=== PATIENT | female | born 1975 | race Caucasian/White ===

== ENCOUNTER 2023-01-29 21:48 | Outpatient (REF) | payer BC, SELFPAY ==
[2023-02-04 16:12] LABS: Age Gdln ACOG Testing Note (.); HPV Aptima Negative (Negative); IGP, Aptima HPV, rfx 16/18,45 Note (.)
== END 2023-01-29 21:49 | disposition home or self-care (01) ==
LOC: LAB 21:48
PROVIDERS: Visit Provider Obstetrics & Gynecology
DX: Z12.4 Encounter for screening for malignant neoplasm of cervix (principal)
CPT/HCPCS: 87624; G0145

== ENCOUNTER 2023-03-31 09:10 | Outpatient (OUT) | payer BC, SELFPAY ==
--- NOTE | 2023-03-31 09:15 | ECG_ITS ---
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
--- NOTE | 2023-03-31 10:10 | XR_ITS ---
[address] [address] Patient Name: ELIEL ANAYA MRN: [id number] date: 1975 Sex: F Assigned Patient Location: [facility] Current Patient Location: [facility] Accession/Order Number: [id number] Exam Date: 03/31/2023 10:00 Report Date: 03/31/2023 10:36 At the request of: DONALD SANDOVAL Procedure: XR chest 2V EXAM: XR chest 2V HISTORY: Preop exam COMPARISON: None. TECHNIQUE: PA and lateral views of the chest. FINDINGS: The cardiomediastinal silhouette is normal. No focal consolidation is identified. There is no pneumothorax. No pleural effusion is noted. The osseous structures are intact. XR/XR chest 2V IMPRESSION: No acute cardiopulmonary process. Electronically authenticated by: JAGJIT MEDINA Date: 03/31/2023 10:36
[2023-03-31 11:05] LABS: Anion Gap 12.1; BUN Creatinine Ratio 13.5; Calcium 9.4 mg/dL (8.5-10.1); Carbon Dioxide 25.6 mmol/L (21.0-32.0); Chloride 100 mmol/L (98-107); Estimated GFR (African America >60 (>=60); Estimated GFR (Non-African Ame 57 (>=60); Glucose 106 mg/dL (74-106); Potassium 3.7 mmol/L (3.5-5.1); Sodium 134 mmol/L (136-145)
== END 2023-03-31 09:11 | disposition home or self-care (01) ==
LOC: PST 09:12
PROVIDERS: Visit Provider Obstetrics & Gynecology
DX: Z01.810 Encounter for preprocedural cardiovascular examination (principal); Z01.812 Encounter for preprocedural laboratory examination; N92.1 Excessive and frequent menstruation with irregular cycle; R10.2 Pelvic and perineal pain
CPT/HCPCS: 36415; 71046; 80048; 93005

== ENCOUNTER 2023-04-10 07:51 | Day surgery (SDC) | payer BC, SELFPAY ==
[2023-03-31 09:53] VITALS: BP 111/71; PULSE 74; RESP 20; TEMP 36.1; O2SAT 99; BMI 43.2
[2023-04-10] VITALS (10 sets, daily range): BP systolic 100–124; BP diastolic 65–85; PULSE 51–75; RESP 12–20; TEMP 36.1–36.6; O2SAT 93–98
[2023-04-10 08:14] LABS: Glucometer 112 mg/dL (74-106)
[2023-04-10 08:32] LABS: Basophils Percent Auto 0.6 % (0.2-2.0); Eosinophils Absolute Auto 0.1 10^3/uL (0.0-0.7); Hematocrit 39.3 % (36.0-48.0); Hemoglobin 13.2 g/dL (12.0-16.0); Immature Granulocytes Abs Auto 0.04 10^3/uL (0.00-0.03); Immature Granulocytes Pct Auto 0.6 % (0.0-0.5); Lymphocytes Absolute Auto 1.7 10^3/uL (1.2-3.8); Lymphocytes Percent Auto 24.9 % (20.5-60.0); Mean Corpuscular HGB Conc 33.6 g/dL (29.9-35.2); Mean Corpuscular Hemoglobin 31.3 pg (26.7-34.0); Mean Corpuscular Volume 93.1 fL (81.0-99.0); Mean Platelet Volume 11.8 fL (9.5-13.5); Monocytes Absolute Auto 0.4 10^3/uL (0.3-0.8); Monocytes Percent Auto 5.6 % (1.7-12.0); Neutrophils Absolute Auto 4.6 10^3/uL (1.4-6.5); Neutrophils Percent Auto 66.3 % (43.0-75.0); Platelet Count 268 10^3/uL (150-450); Red Blood Count 4.22 10^6/uL (4.20-5.40); Red Cell Distribution Width 12.9 % (11.0-15.0)
[2023-04-10] MEDS: LACTATED RINGER'S SOLUTION 1,000 ML 50 ML IV (08:39)
[2023-04-10 08:44] LABS: HCG Quantitative <1 mIU/mL
--- NOTE | 2023-04-10 10:19 | PM.ONB ---
Brief Operative Note Date of procedure: 04/10/23 Pre-op diagnosis: menorrhagia Post-op diagnosis: same as pre-op Procedure: NAME OF PROCEDURE: [ D&c hysteroscopy with myosure] PROCEDURE: The patient was taken back to the Operating Room where she was prepped and draped in normal sterile fashion after being placed under general anesthesia without difficulty. She was also placed in the dorsal lithotomy position. A weighted speculum was placed in the patient?s vagina. The anterior lip of the cervix was identified and grasped with a single tooth tenaculum. The patient?s uterus was then sounded roughly to [? 8] cm. The patient was then gently dilated using Hegar dilators. The hysteroscope was passed through the patient?s cervix into the uterus. Both ostia were identified. fluffy appearing endometrium. No gross evidence of malignancy, no gross evidence of polyps or fibroids. The MyoSure was then placed through the scope into the uterus, endometrial sampling in all quadrants was then performed. the myosure apparatus was removed along with the hysteroscope from the patient's uterus. At that point, gentle curettage was performed until a gritty texture was noted. The endometrial curettings were sent out to pathology. The single tooth tenaculum was then removed from the patient's anterior lip of the cervix where excellent hemostasis was noted. All instruments were removed from the patient?s vagina. The patient tolerated the procedure well. Sponge, lap and needle counts were correct times two. The patient was taken to the Recovery Room in stable condition.Room in stable condition. Anesthesia: LUIS F Surgeon: Dada Perkins Estimated blood loss (mL): 5 Pathology: other (endometrial currettings) Condition: stable Disposition: PACU
[2023-04-10] MEDS: HYDROMORPHONE HCL 0.5 MG/0.5 ML SYRINGE IV (10:49)
--- NOTE | 2023-04-10 10:53 | PC.NURSE ---
PERIPAD NOTED TO HAVE SCANT AMOUNT PINK DRAINAGE
--- NOTE | 2023-04-10 11:01 | PC.NURSE ---
scant pink drainage noted on peripad
--- NOTE | 2023-04-10 11:46 | PC.NURSE ---
No change in peripad assessment
--- NOTE | 2023-04-10 12:40 | PC.NURSE ---
Voids red tinged urine without difficulty
== END 2023-04-10 12:10 | disposition home or self-care (01) ==
PROVIDERS: Visit Provider Obstetrics & Gynecology
PROC: (CPT 58558; principal; 2023-04-10 09:15)
DX: N92.1 Excessive and frequent menstruation with irregular cycle (principal); R10.2 Pelvic and perineal pain; I10 Essential (primary) hypertension; Z79.84 Long term (current) use of oral hypoglycemic drugs; J30.1 Allergic rhinitis due to pollen; Z87.891 Personal history of nicotine dependence; Z86.010 Personal history of colon polyps; J43.9 Emphysema, unspecified; M79.7 Fibromyalgia; K21.9 Gastro-esophageal reflux disease without esophagitis; F41.1 Generalized anxiety disorder; E78.5 Hyperlipidemia, unspecified; M54.16 Radiculopathy, lumbar region; E66.01 Morbid (severe) obesity due to excess calories; E28.2 Polycystic ovarian syndrome; F32.A Depression, unspecified; E61.1 Iron deficiency; G47.33 Obstructive sleep apnea (adult) (pediatric); E53.8 Deficiency of other specified B group vitamins; Z68.41 Body mass index [BMI] 40.0-44.9, adult; Z86.16 Personal history of COVID-19
CPT/HCPCS: 58558; 36415; 82948; 84702; 85025; 88305; J1170; J2704

== ENCOUNTER 2024-09-26 09:58 | Outpatient (REF) | payer OTHER, SELFPAY | END 2024-09-26 09:59 | disposition home or self-care (01) | LOC: LAB 09:58 | PROVIDERS: PCP Family Medicine Adult Medicine; Visit Provider Obstetrics & Gynecology | DX: R10.2 Pelvic and perineal pain (principal); N94.6 Dysmenorrhea, unspecified ==

== ENCOUNTER 2024-10-10 09:14 | Outpatient (OUT) | payer OTHER, SELFPAY ==
--- NOTE | 2024-10-10 09:19 | ECG_ITS ---
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 Measurements Intervals [place] Rate: 65 P: -9 OR: 181 QRS: 10 QRSD: 94 T: 54 QT: 398 QTc: 416 Interpretive Statements SINUS RHYTHM INCOMPLETE RIGHT BUNDLE BRANCH BLOCK [90+ ms QRS DURATION, TERMINAL R IN V1/V2, 40+ ms S IN I/aVL/V4/V5/V6] Compared to ECG 03/31/2023 09:54:31 No significant changes Electronically Signed On 10-10-2024 17:52:14 EDT by MARIELENA RASMUSSEN M.D.
--- OUTSIDE RECORDS SUMMARY | 2024-10-10 09:36 | XMS_ITS | CCD ---
Author Organization [facility] Care Team Providers Care Correspondence Review Clerk Name Role Phone DAVID, KOSTA A Unavailable Unavailable DAVID, KOSTA A Unavailable Unavailable DAVID, KOSTA A Unavailable Unavailable DAVID, KOSTA A Unavailable Unavailable DAVID, KOSTA A Unavailable Unavailable Andreas ECKERT Primary Care Physician [phone] Serafin Roberson Primary Care Physician Unavail able TAO Edwards Attending Luisa vailable Demboske, Daja Harman Attending Unavailable Demboske, Daja Harman Attending Unavailable Demboske, Daja Harman Attending Unavailable Demboske, Daja Harman Admitting Unavailable ClingmanMaximilian Admitting Unavailable Clingman, Maximilian Carbajal Attending Unavailable Rupesh Gandara Admitting Unavailable Rupesh Gandara Attending Unavailable Andreas ECKERT Referring Unavailable ClinMaximilian zavala Attending Unavailable DO Serafin Roberson Attending Unavailable DO Serafin Roberson Attending Unavailable Hussain Varner Admitting Unavailable Hussain Varner Attending Unavailable Sanam, Daja Harman Admitting Unavailable Sanam, Daja Harman Attending Unavailable Hector Alyssa Admitting Unavailable Alyssa Young Attending Unavailable Andreas ECKERT Referring Unavailable Hector Alyssa Admitting Unavailable Alyssa Young Attending Unavailable Serafin Roberson Referring Unavailable Juanita Oneill Attending Unavailable Serafin Roberson Attending Unavailable Serafin Roberson Attending Unavailable Serafin Roberson Attending Unavailable Serafin Roberson Attending Unavailable Serafin Roberson Admitting Unavailable Serafin Roberson Attending Unavailable Hussain Varner Attending Unavailable Hussain Varner Admitting Unavailable Andreas Eckert MD Primary Care Provider Dada Perkins DO Attending Provider DADA PERKINS Attending Unavailable DADA PERKINS Attending Unavailable Dada Perkins Attending Unavailable Dada Perkins Admitting Unavailable Jeffy Coffman Attending UnavailSerafin Guan Attending Unavailable Serafin Roberson Admitting Unavailable Serafin Roberson Attending Unavailable Allergies Allergy Classification Reported Allergen(s) Allergy Type Date of Onset Reaction(s) Facility (20 sources) Sulfonamides (Antibiotic); Translations: [sulfa drugs] Propensity to adverse reactions to drug (disorder) TONGUE SWELLS, angioedema [facility] (20 sources) pregabalin; Translations: [pregabalin] Drug Allergy unknown [facility] (4 sources) Pregabalin Allergy to substance 3 Unknown [facility] (4 sources) Sulfonamides (Antibiotic) Drug Allergy 3 Angioedema, Unknown [facility] Medications Current Medications Medication Drug Class(es) Dates Sig (Normalized) Sig (Original) acetaminophen 325 mg / HYDROcodone bitartrate 5 mg oral tablet (3 sources) Opioid Agonist Start: 08-29-2021 [place] 325 mg-5 mg oral tablet 1 tab(s), Oral, q6hr as needed for pain, 7 tab(s), Refill(s) 0, [id number], 165, cm, 08/29/21 19:07:00 EDT, Height/Length Dosing, 128, kg, 08/29/21 19:07:00 EDT, Weight Dosing Start Date: 08/29/21 Status: Ordered [id number] 200 actuat albuterol 0.09 mg/actuat metered dose inhaler (2 sources) beta2-Adrenergic Agonist Start: 06-03-2021 take 2 puff(s) by inhalation every four hours for wheezing ProAir HFA 90 mcg/inh inhalation aerosol 2 puff(s), Inhalation, q4hr for wheezing, 8.5 gram, Refill(s) 6, [id number], 165, cm, 04/29/21 10:14:00 EST, Height/Length Dosing, 136.3, kg, 04/30/21 9:22:00 EST, Weight Dosing Start Date: 06/03/21 Status: Ordered Albuterol (Eqv-ProAir HFA) 90 mcg/inh inhalation aerosol (10 sources) Start: 11-09-2023 take 2 puff(s) by inhalation every six hours Albuterol (Eqv-ProAir HFA) 90 mcg/inh inhalation aerosol 2 puff(s), Inhalation, q6hr, 18 gm, Refill(s) 0, [id number], 165, cm, 11/09/23 16:50:00 EDT, Height/Length Dosing, 116.7, kg, 11/09/23 16:50:00 EDT, Weight Dosing Start Date: 11/09/23 Status: Ordered Start: 05-20-2022 End: 05-27-2022 take 2 puff(s) by inhalation every six hours Albuterol (Eqv-ProAir HFA) 90 mcg/inh inhalation aerosol 2 puff(s), Inhalation, q6hr for 7 day(s), 6.7 gm, Refill(s) 0, [id number], 165, cm, 05/20/22 18:06:00 EST, Height/Length Dosing, 124, kg, 05/20/22 18:06:00 EST, Weight Dosing Start Date: 05/20/22 Stop Date: 05/27/22 Status: Ordered Albuterol (Eqv-Proventil HFA) 90 mcg/inh inhalation aerosol (20 sources) Start: 08-04-2022 take 2 puff(s) by inhalation every four hours Albuterol (Eqv-Proventil HFA) 90 mcg/inh inhalation aerosol = 2 puff(s), Inhalation, q4hr, Refills(s) 0 Start Date: 08/04/22 Status: Ordered amoxicillin 875 mg / clavulanate 125 mg oral tablet (2 sources) Penicillin-class Antibacterial Start: 11-09-2023 End: 11-19-2023 take 1 tablet by mouth every twelve hours Augmentin 875 mg oral tablet = 1 tab(s), Oral, q12hr, X 10 day(s), # 20 tab(s), Refills(s) 0, Pharmacy: [id number], 165, cm, 11/09/23 16:50:00 EDT, Height/Length Dosing, 116.7, kg, 11/09/23 16:50:00 EDT, Weight Dosing Start Date: 11/09/23 Stop Date: 11/19/23 Status: Ordered Start: 06-17-2022 End: 06-22-2022 take 1 tablet by mouth every twelve hours Augmentin 875 mg oral tablet = 1 tab(s), Oral, q12hr, X 5 day(s), # 10 tab(s), Refills(s) 0, [id number], cm, 06/17/22 19:01:00 EST, Height/Length Dosing, 125, kg, 06/17/22 19:01:00 EST, Weight Dosing Start Date: 06/17/22 Stop Date: 06/22/22 Status: Ordered azithromycin 250 mg oral tablet (2 sources) Macrolide Antimicrobial Start: 06-30-2022 Zithromax 250 mg Tab = 1 packet(s), Oral, As Directed, as directed on package labeling, # 6 tab(s), Refills(s) 1, [id number] 162, cm, 06/30/22 11:40:00 EST, Height/Length Dosing, 126, kg, 06/30/22 11:39:00 EST, Weight Dosing Start Date: 06/30/22 Status: Ordered benzonatate 100 mg oral capsule (1 source) Non-narcotic Antitussive Start: 11-09-2023 End: 11-16-2023 take 1 capsule by mouth three times daily Tessalon 100 mg Cap 100 mg = 1 cap(s), Oral, TID, X 7 day(s), # 21 cap(s), Refills(s) 0, [id number] 165, cm, 11/09/23 16:50:00 EDT, Height/Length Dosing, 116.7, kg, 11/09/23 16:50:00 EDT, Weight Dosing Start Date: 11/09/23 Stop Date: 11/16/23 Status: Ordered brompheniramine maleate 0.4 mg/ml / dextromethorphan hydrobromide 2 mg/ml / pseudoephedrine hydrochloride 6 mg/ml oral solution (4 sources) alpha-Adrenergic Agonist, Uncompetitive A-bjimdu-Q-asparta te Receptor Antagonist, Sigma-1 Agonist Start: 05-30-2022 take 10 mL by mouth four times daily Bromfed DM oral syrup 10 mL, Oral, QID for cold symptoms, 200 mL, Refill(s) 0, [id number], 165, cm, 05/30/22 9:05:00 EST, Height/Length Dosing, 125, kg, 05/30/22 9:05:00 EST, Weight Dosing Start Date: 05/30/22 Status: Ordered Start: 05-20-2022 take 5 mL by mouth f our times daily Bromfed DM oral syrup 5 mL, Oral, QID for cold symptoms, 200 mL, Refill(s) 0, [id number], 165, cm, 05/20/22 18:06:00 EST, Height/Length Dosing, 124, kg, 05/20/22 18:06:00 EST, Weight Dosing Start Date: 05/20/22 Status: Ordered 24 hr buPROPion hydrochloride 300 mg extended release oral tablet (8 sources) Aminoketone Start: 07-08-2024 take 1 tablet by mouth once daily buPROPion 300 mg/24 hours ER Tab 300 mg = 1 tab(s), Oral, Daily, # 30 tab(s), Refills(s) 11, Pharmacy: [facility], 165, cm, 07/05/24 8:55:00 EST, Height/Length Dosing, 115.7, kg, 07/05/24 8:55:00 EST, Weight Dosing Start Date: 07/08/24 Status: Ordered Start: 05-27-2024 take 1 tablet by chin th every twenty-four hours buPROPion 150 mg/24 hours XL Tab 150 mg = 1 tab(s), Oral, q24hr, # 30 tab(s), Refills(s) 5, Pharmacy: [facility], 165, cm, 05/27/24 8:56:00 EST, Height/Length Dosing, 119.7, kg, 05/27/24 8:56:00 EST, Weight Dosing Start Date: 05/27/24 Status: Ordered cetirizine hydrochloride 10 mg chewable tablet (20 sources) Histamine-1 Receptor Antagonist Start: 06-20-2022 take 1 tablet by mouth once daily as needed cetirizine 10 mg oral tablet, chewable 10 mg = 1 tab(s), Oral, Daily, PRN for allergy symptoms, # 90 tab(s), Refills(s) 0, Pharmacy: [id number], 165, cm, 06/17/22 19:01:00 EST, Height/Length Dosing, 125, kg, 06/17/22 19:01:00 EST, Weight Dosing Start Date: 06/20/22 Status: Ordered Start: 12-10-2020 take 1 tablet by chin th once daily as needed cetirizine 10 mg oral tablet, chewable 10 mg = 1 tab(s), Oral, Daily, PRN for allergy symptoms, # 90 tab(s), Refills(s) 0, Pharmacy: [id number], 132.7, cm, 11/22/20 15:27:00 EDT, Height/Length Dosing, 165, kg, 11/22/20 15:27:00 EDT, Weight Dosing Start Date: 12/10/20 Status: Ordered ciprofloxacin 500 mg oral tablet (1 source) Quinolone Antimicrobial Start: 06-04-2022 take 1 tablet by mouth twice daily Cipro 500 mg Tab 500 mg = 1 tab(s), Oral, BID, # 14 tab(s), Refills(s) 0, Pharmacy: [id number], 165, cm, 05/30/22 9:05:00 EST, Height/Length Dosing, 125, kg, 05/30/22 9:05:00 EST, Weight Dosing Start Date: 06/04/22 Status: Ordered ciprofloxacin 3 mg/ml / dexamethasone 1 mg/ml otic suspension (2 sources) Corticosteroid, Quinolone Antimicrobial Start: 06-03-2024 End: 06-17-2024 Ciprodex 0.3%-0.1% Susp-Otic 4 drop(s), Otic, BID for 7 day(s), 7.5 mL, Refill(s) 1, [facility], 165, cm, 06/03/24 13:33:00 EST, Height/Length Dosing, 118.7, kg, 06/03/24 13:33:00 EST, Weight Dosing Start Date: 06/03/24 Stop Date: 06/17/24 Status: Ordered cyclobenzaprine hydrochloride 10 mg oral tablet (20 sources) Muscle Relaxant Start: 06-03-2024 take 1 tablet by mouth three times daily as needed for muscle spasms cyclobenzaprine 10 mg Tab 10 mg = 1 tab(s), Oral, TID, PRN for spasm, # 90 tab(s), Refills(s) 2, Pharmacy: [facility], 165, cm, 06/03/24 13:33:00 EST, Height/Length Dosing, 118.7, kg, 06/03/24 13:33:00 EST, Weight Dosing Start Date: 06/03/24 Status: Ordered Start: 09-02-2023 take 1 tablet by chin three times daily as needed for muscle spasms cyclobenzaprine 10 mg Tab 10 mg = 1 tab(s), Oral, TID, PRN for spasm, # 90 tab(s), Refills(s) 2, Pharmacy: [id number], 165, cm, 09/01/23 15:20:00 EDT, Height/Length Dosing, 118, kg, 09/01/23 15:20:00 EDT, Weight Dosing Start Date: 09/02/23 Status: Ordered Start: 08-21-2021 End: 05-03-2023 take 1 tablet by mouth three times daily as needed for muscle spasms cyclobenzaprine 10 mg Tab 10 mg = 1 tab(s), Oral, TID, PRN for spasm, # 90 tab(s), Refills(s) 2, Pharmacy: [id number], 165, cm, 11/21/21 8:25:00 EDT, Height/Length Dosing, 122.5, kg, 11/21/21 8:25:00 EDT, Weight Dosing Start Date: 11/21/21 Status: Ordered Cymbalta 30 mg Cap-EC (10 sources) Start: 06-19-2020 take 3 capsules by mouth once daily Cymbalta 30 mg Cap-EC 90 mg = 3 cap(s), Oral, Daily, # 270 cap(s), Refills(s) 3, Pharmacy: [id number], 165, cm, 06/14/20 15:31:00 EST, Height/Length Dosing, 122.5, kg, 06/14/20 15:31:00 EST, Weight Dosing Start Date: 06/19/20 Status: Ordered diclofenac sodium 0.01 mg/mg topical gel (6 sources) Nonsteroidal Anti-inflammatory Drug Start: 07-05-2020 diclofenac Top 1% gel 1 justine, Topical, QID for pain, 100 gram, Refill(s) 11, [id number], 165, cm, 06/25/20 7:15:00 EST, Height/Length Dosing, 126.5, kg, 06/25/20 7:15:00 EST, Weight Dosing Start Date: 07/05/20 Status: Ordered Start: 07-05-2020 diclofenac Top 1% gel 1 justine, Topical, QID for pain, 100 gram, Refill(s) 11, [id number], 165, cm, 06/25/20 7:15:00 EST, Height/Length Dosing, 126.5, kg, 06/25/20 7:15:00 EST, Weight Dosing Start Date: 07/05/20 Status: Ordered doxycycline monohydrate 100 mg oral tablet (4 sources) Tetracycline-class Drug Start: 05-20-2022 End: 05-27-2022 take 1 tablet by mouth twice daily doxycycline monohydrate 100 mg oral tablet 100 mg = 1 tab(s), Oral, BID, X 7 day(s), # 14 tab(s), Refills(s) 0, Pharmacy: [facility] #[id number], 165, cm, 05/20/22 18:06:00 EST, Height/Length Dosing, 124, kg, 05/20/22 18:06:00 EST, Weight Dosing Start Date: 05/20/22 Stop Date: 05/27/22 Status: Ordered Start: 11-28-2021 End: 12-08-2021 take 1 tablet by mouth every twelve hours doxycycline hyclate 100 mg Tab 100 mg = 1 tab(s), Oral, q12hr, X 10 day(s), # 20 tab(s), Refills(s) 0, Pharmacy: [id number], 165, cm, 11/28/21 18:28:00 EDT, Height/Length Dosing, 122, kg, 11/28/21 18:28:00 EDT, Weight Dosing Start Date: 11/28/21 Stop Date: 12/08/21 Status: Ordered DULoxetine 30 mg delayed release oral capsule (9 sources) Serotonin and Norepinephrine Reuptake Inhibitor Start: 06-19-2020 take 3 capsules by mouth once daily Cymbalta 30 mg Cap-EC 90 mg = 3 cap(s), Oral, Daily, # 270 cap(s), Refills(s) 3, Pharmacy: [id number], 165, cm, 06/14/20 15:31:00 EST, Height/Length Dosing, 122.5, kg, 06/14/20 15:31:00 EST, Weight Dosing Start Date: 06/19/20 Status: Ordered DULoxetine (Cymb afia) [address] capsule 1 (one) time each day at the same time. Active duloxetine 30 mg Cap-DR (20 sources) Start: 08-04-2022 take 1 capsule by mouth twice daily duloxetine 30 mg Cap-DR = 1 cap(s), Oral, BID, (do not crush or chew), # 180 cap(s), Refills(s) 0 Start Date: 08/04/22 Status: Ordered Elderberry preparation (10 sources) Start: 10-14-2023 elderberry Refill(s) 0 Start Date: 10/14/23 Status: Ordered Flonase 0.05 mg/inh nasal spray (6 sources) Start: 10-30-2018 take 1 spray(s) nasal route twice daily Flonase 0.05 mg/inh nasal spray 1 spray(s), Nasal, BID, 16 gram, Refill(s) 0, each nostril, Allergy symptoms Start Date: 10/30/18 Status: Ordered FLUoxetine 20 mg oral capsule (20 sources) Serotonin Reuptake Inhibitor Start: 05-27-2024 take 1 capsule by mouth once daily FLUoxetine 20 mg Cap 20 mg = 1 cap(s), Oral, Daily, # 30 cap(s), Refills(s) 0, other reason (Rx) Start Date: 05/27/24 Status: Ordered Start: 12-02-2021 take 1 capsule by mo [facility] once daily FLUoxetine 40 mg Cap 40 mg = 1 cap(s), Oral, Daily, Refills(s) 0 Start Date: 12/02/21 Status: Ordered Start: 01-17-2021 take 30 mg by mouth once daily Prozac 30 mg, Oral, Daily, Refills(s) 0 Start Date: 01/17/21 Status: Ordered take 3 capsules by m outh in the morning FLUoxetine (PROzac) 10 MG capsule Take 30 mg by mouth in the morning. Active fluticasone propionate 0.05 mg/actuat metered dose nasal spray (20 sources) Corticosteroid Start: 05-30-2022 fluticasone (F lonase) 50 MCG/ACT nasal spray 1 (one) time each day at the same time. 05/30/2022 Active Start: 05-30-2022 Flonase 0.05 m g/inh [place] 2 spray(s), Nasal, Daily, 16 gram, Refill(s) 5, each nostril, [id number], 165, cm, 05/30/22 9:05:00 EST, Height/Length Dosing, 125, kg, 05/30/22 9:05:00 EST, Weight Dosing Start Date: 05/30/22 Status: Ordered Start: 10-30-2018 take 1 spray(s) nasa l route twice daily Flonase 0.05 mg/inh nasal spray 1 spray(s), Nasal, BID, 16 gram, Refill(s) 0, each nostril, Allergy symptoms Start Date: 10/30/18 Status: Ordered folic acid 1 mg oral tablet (19 sources) Start: 02-26-2023 take 1 tablet by mouth once daily folic acid 1 mg Tab 1 mg = 1 tab(s), Oral, Daily, # 90 tab(s), Refills(s) 3, Pharmacy: [facility], 165, cm, 04/04/24 10:00:00 EST, Height/Length Dosing, 116.6, kg, 04/04/24 10:00:00 EST, Weight Dosing Start Date: 04/04/24 Status: Ordered gabapentin 600 mg oral tablet (20 sources) Anti-epilepti c Agent Start: 07-05-2024 gabapentin 600 mg Ta b See Instructions, 0.5 tabs QAM and 2 tabs QHS, # 75 tab(s), Refills(s) 2, Pharmacy: [facility], 165, cm, 07/05/24 8:55:00 EST, Height/Length Dosing, 115.7, kg, 07/05/24 8:55:00 EST, Weight Dosing Start Date: 07/05/24 Status: Ordered Start: 11-17-2023 End: 08-11-2024 take 1 tablet by mouth twice daily gabapentin 600 mg Tab 600 mg = 1 tab(s), Oral, BID, X 30 day(s), # 60 tab(s), Refills(s) 2, Pharmacy: [facility] #[facility], 165, cm, 04/04/24 10:00:00 EST, Height/Length Dosing, 116.6, kg, 04/04/24 10:00:00 EST, Weight Dosing Start Date: 05/13/24 Stop Date: 08/11/24 Status: Ordered Start: 09-02-2023 End: 11-01-2023 take 1 tablet by mouth twice daily gabapentin 600 mg Tab 600 mg = 1 tab(s), Oral, BID, X 30 day(s), # 60 tab(s), Refills(s) 1, [id number] 165, cm, 09/01/23 15:20:00 EDT, Height/Length Dosing, 118, kg, 09/01/23 15:20:00 EDT, Weight Dosing Start Date: 09/02/23 Stop Date: 11/01/23 Status: Ordered Start: 04-03-2023 End: 07-02-2023 take 11-17 tablets by mouth twice daily gabapentin 600 mg Tab 600 mg = 1 tab(s), Oral, BID, DNF 04-10-23, X 30 day(s), # 60 tab(s), Refills(s) 2, Pharmacy: [id number], 165, cm, 01/16/23 10:39:00 EDT, Height/Length Dosing, 118, kg, 01/16/23 10:39:00 EDT, Weight Dosing Start Date: 04/03/23 Stop Date: 07/02/23 Status: Ordered Start: 12-01-2022 take 1 tablet by chin th twice daily gabapentin 600 mg Tab 600 mg = 1 tab(s), Oral, BID, # 60 tab(s), Refills(s) 1, Pharmacy: [id number], 165, cm, 11/26/22 15:24:00 EDT, Height/Length Dosing, 121.5, kg, 11/26/22 15:24:00 EDT, Weight Dosing Start Date: 12/01/22 Status: Ordered Start: 08-20-2021 take 1 tablet by chin th twice daily gabapentin 600 mg Tab 600 mg = 1 tab(s), Oral, BID, # 60 tab(s), Refills(s) 1, Pharmacy: [id number], 165, cm, 09/04/22 8:33:00 EDT, Height/Length Dosing, 120.3, kg, 09/04/22 8:33:00 EDT, Weight Dosing Start Date: 09/05/22 Status: Ordered hydroCHLOROthiazide 25 mg oral tablet (20 sources) Thiazide Diuretic Start: 05-10-2021 take 1 tablet by mouth in the morning hydroCHLOROthiazide (HYDRODiuril) 25 MG tablet Take 25 mg by mouth in the morning. 05/07/2022 Active hydrOXYzine hydrochloride 50 mg oral tablet (4 sources) Antihistamine Start: 09-12-2022 take 1 tablet by mouth once daily as needed hydrOXYzine HCl (Atarax) 50 MG tablet TAKE 1 TABLET BY MOUTH EVERY DAY AT NOON NEEDED 09/12/2022 Active ibuprofen 800 mg oral tablet (20 sources) Nonsteroidal Anti-inflammatory Drug Start: 08-21-2021 take 1 tablet by mouth twice daily as needed for pain ibuprofen 800 mg Tab 800 mg = 1 tab(s), Oral, BID, PRN as needed for pain, # 60 tab(s), Refills(s) 0, Pharmacy: [id number], 165, cm, 11/21/21 8:25:00 EDT, Height/Length Dosing, 122.5, kg, 11/21/21 8:25:00 EDT, Weight Dosing Start Date: 11/21/21 Status: Ordered ketotifen 0.25 mg/ml ophthalmic solution (20 sources) Histamine-1 Receptor Inhibitor Start: 05-20-2022 Zaditor 0.025% ophthalmic solution 1 drop(s), Eye-Both, q8hr, 7.5 mL, Refill(s) 0, [id number], 165, cm, 05/20/22 18:06:00 EST, Height/Length Dosing, 124, kg, 05/20/22 18:06:00 EST, Weight Dosing Start Date: 05/20/22 Status: Ordered light duty (20 sources) Start: 11-03-2019 light duty light duty, Print Requisition, Supply Start Date: 11/03/19 Status: Ordered lisinopril 10 mg oral tablet (20 sources) Angiotensin Converting Enzyme Inhibitor Start: 12-21-2020 End: 09-12-2024 take 1 tablet by mouth once daily lisinopril 10 mg Tab 10 mg, Oral, Daily, # 90 tab(s), Refills(s) 4, [id number] 165, cm, 11/26/22 15:24:00 EDT, Height/Length Dosing, 121.5, kg, 11/26/22 15:24:00 EDT, Weight Dosing Start Date: 11/26/22 Status: Ordered meclizine hydrochloride 12.5 mg oral tablet (20 sources) Antiemetic Start: 05-30-2022 meclizine (Antivert) 12.5 MG tablet 1/2-1 tablets Orally tid-qid prn dizziness for 30 day(s) 05/30/2022 Active Start: 01-15-2020 take 1 tablet by chin th three times daily as needed for dizziness meclizine 25 mg Tab 25 mg = 1 tab(s), Oral, TID, PRN for dizziness, # 60 tab(s), Refills(s) 0, [id number], 165, cm, 01/04/20 7:16:00 EDT, Height/Length Dosing, 123.4, kg, 01/04/20 7:16:00 EDT, Weight Dosing Start Date: 01/15/20 Status: Ordered metFORMIN hydrochloride 500 mg oral tablet (20 sources) Biguanide Start: 08-04-2022 metFORMIN (Glu cophage) 500 MG tablet Take 500 mg by mouth. 08/04/2022 Active Start: 04-02-2020 take 1 tablet by chin th twice daily metformin 500 mg oral tablet 500 mg = 1 tab(s), Oral, BID, # 60 tab(s), Refills(s) 11, Pharmacy: [id number], 165, cm, 03/29/20 9:07:00 EST, Height/Length Dosing, 120, kg, 03/29/20 9:07:00 EST, Weight Dosing Start Date: 04/02/20 Status: Ordered methylPREDNISolone 4 mg oral tablet (2 sources) Corticosteroid Start: 06-30-2022 Medrol Dosepack 4 mg Tab = 1 packet(s), Oral, As Directed, as directed on package labeling, # 21 tab(s), Refills(s) 1, [id number] 162, cm, 06/30/22 11:40:00 EST, Height/Length Dosing, 126, kg, 06/30/22 11:39:00 EST, Weight Dosing Start Date: 06/30/22 Status: Ordered 24 hr metoprolol succinate 25 mg extended release oral tablet (12 sources) beta-Adrenergic Kaveh Start: 03-20-2022 take 1 tablet by mouth once daily metoprolol 25 mg ER Tab 25 mg = 1 tab(s), Oral, Daily, # 90 tab(s), Refills(s) 1, [id number], 165, cm, 01/29/22 10:54:00 EDT, Height/Length Dosing, 123, kg, 12/23/21 9:43:00 EDT, Weight Dosing Start Date: 03/20/22 Status: Ordered Start: 12-24-2020 End: 12-19-2021 take 1 tablet by mouth once daily metoprolol 25 mg ER Tab 25 mg = 1 tab(s), Oral, Daily, X 90 day(s), # 90 tab(s), Refills(s) 3, [id number], 132.7, cm, 11/22/20 15:27:00 EDT, Height/Length Dosing, 165, kg, 11/22/20 15:27:00 EDT, Weight Dosing Start Date: 12/24/20 Stop Date: 12/19/21 Status: Ordered montelukast 10 mg oral tablet (20 sources) Leukotriene Receptor Antagonist Start: 07-22-2022 take 1 tablet by mouth once daily in the evening Singulair 10 mg Tab 10 mg = 1 tab(s), Oral, qPM, # 90 tab(s), Refills(s) 4, Pharmacy: [facility], 165, cm, 06/03/24 13:33:00 EST, Height/Length Dosing, 118.7, kg, 06/03/24 13:33:00 EST, Weight Dosing Start Date: 06/03/24 Status: Ordered Mucinex D Max Strength oral tablet, extended release (1 source) Start: 11-09-2023 End: 11-19-2023 Mucinex D Max Strength oral tablet, extended release 1 tab(s), Oral, q12hr for 10 day(s), 20 tab(s), Refill(s) 0, [id number], 165, cm, 11/09/23 16:50:00 EDT, Height/Length Dosing, 116.7, kg, 11/09/23 16:50:00 EDT, Weight Dosing Start Date: 11/09/23 Stop Date: 11/19/23 Status: Ordered mupirocin 0.02 mg/mg topical ointment (20 sources) RNA Synthetase Inhibitor Antibacterial Start: 05-20-2022 End: 05-27-2022 mupirocin Top 2% Oint 1 justine, Topical, TID for 7 day(s), 30 gram, Refill(s) 0, [id number], 165, cm, 05/20/22 18:06:00 EST, Height/Length Dosing, 124, kg, 05/20/22 18:06:00 EST, Weight Dosing Start Date: 05/20/22 Stop Date: 05/27/22 Status: Ordered Start: 11-11-2021 Bactroban 2% C ream 1 justine, Topical, TID, 15 gm, Refill(s) 0, [id number], 165, cm, 08/29/21 19:07:00 EDT, Height/Length Dosing, 128, kg, 08/29/21 19:07:00 EDT, Weight Dosing Start Date: 11/11/21 Status: Ordered nitrofurantoin, macrocrystals 100 mg oral capsule (2 sources) Nitrofuran Antibacterial Start: 09-01-2023 End: 09-06-2023 take 1 capsule by mouth twice daily nitrofurantoin macrocrystals 100 mg Cap 100 mg = 1 cap(s), Oral, BID, X 5 day(s), # 10 cap(s), Refills(s) 0, Pharmacy: [facility]/pharmacy #[id number], 165, cm, 09/01/23 15:20:00 EDT, Height/Length Dosing, 118, kg, 09/01/23 15:20:00 EDT, Weight Dosing Start Date: 09/01/23 Stop Date: 09/06/23 Status: Ordered pantoprazole 40 mg delayed release oral tablet (20 sources) Proton Pump Inhibitor Start: 05-28-2022 Protonix 40 MG EC tablet 1 (one) time each day at the same time. 05/28/2022 Active Start: 06-26-2021 take 1 tablet by [facility] once daily Protonix 40 mg Tab-DR 40 mg, Oral, Daily, # 90 tab(s), Refills(s) 3, Pharmacy: [facility]/pharmacy #[id number], 165, cm, 04/29/21 10:14:00 EST, Height/Length Dosing, 136.3, kg, 04/30/21 9:22:00 EST, Weight Dosing Start Date: 06/26/21 Status: Ordered phentermine hydrochloride 37.5 mg oral tablet (20 sources) Sympathomimetic Amine Anorectic Start: 01-16-2023 phentermine 37.5 mg Tab 37.5 mg = 1 tab(s), Oral, Daily, BMI 43 #6 30 day supply before breakfast, # 30 tab(s), Refills(s) 0, Pharmacy: [facility]/pharmacy #[id number], 165, cm, 01/16/23 10:39:00 EDT, Height/Length Dosing, 118, kg, 01/16/23 10:39:00 EDT, Weight Dosing Start Date: 01/16/23 Status: Ordered Start: 12-09-2022 phentermine 37 .5 mg Tab 37.5 mg = 1 tab(s), Oral, Daily, BMI 43 #4 30 day supply before breakfast, # 30 tab(s), Refills(s) 0, Pharmacy: [facility]/pharmacy #[id number], 165, cm, 12/09/22 14:54:00 EDT, Height/Length Dosing, 118, kg, 12/09/22 14:54:00 EDT, Weight Dosing Start Date: 12/09/22 Status: Ordered Start: 10-03-2022 phentermine 37 .5 mg Tab 37.5 mg = 1 tab(s), Oral, Daily, BMI 44 #3 30 day supply before breakfast, # 30 tab(s), Refills(s) 0, Pharmacy: [facility]/pharmacy #[id number], 165, cm, 10/03/22 8:31:00 EDT, Height/Length Dosing, 119.8, kg, 10/03/22 8:31:00 EDT, Weight Dosing Start Date: 10/03/22 Status: Ordered Start: 08-04-2022 End: 09-03-2022 phentermine 37.5 mg Tab 37.5 mg = 1 tab(s), Oral, Daily, BMI 44 #2 30 day supply before breakfast, # 30 tab(s), Refills(s) 0, Pharmacy: [facility]/pharmacy #[id number], 165, cm, 09/04/22 8:33:00 EDT, Height/Length Dosing, 120.3, kg, 09/04/22 8:33:00 EDT, Weight Dosing Start Date: 09/04/22 Status: Ordered polymyxin b 18371 unt/ml / trimethoprim 1 mg/ml ophthalmic solution (1 source) Dihydrofolate Reductase Inhibitor Antibacterial, Polymyxin-class Antibacterial Start: 05-20-2022 End: 05-27-2022 Polytrim 10 mL Soln-Opth 1 drop(s), OPTH, q3hr for 7 day(s), 10 mL, Refill(s) 0, [facility]/pharmacy #[id number], 165, cm, 05/20/22 18:06:00 EST, Height/Length Dosing, 124, kg, 05/20/22 18:06:00 EST, Weight Dosing Start Date: 05/20/22 Stop Date: 05/27/22 Status: Ordered potassium chloride 10 meq extended release oral capsule (20 sources) Start: 12-09-2022 potassium chloride ER (Micro-K) 10 MEQ ER capsule Take 10 mEq by mouth. 12/09/2022 Active predniSONE 20 mg oral tablet (3 sources) Start: 09-01-2023 End: 09-08-2023 take 1 tablet by mouth once daily predniSONE 20 mg Tab 20 mg = 1 tab(s), Oral, Daily, X 7 day(s), # 7 tab(s), Refills(s) 0, Pharmacy: [facility]/pharmacy #[id number], 165, cm, 09/01/23 15:20:00 EDT, Height/Length Dosing, 118, kg, 09/01/23 15:20:00 EDT, Weight Dosing Start Date: 09/01/23 Stop Date: 09/08/23 Status: Ordered Start: 05-30-2022 End: 06-04-2022 take 2 tablets by mouth once daily predniSONE 20 mg Tab 40 mg = 2 tab(s), Oral, Daily, X 5 day(s), # 10 tab(s), Refills(s) 0, Pharmacy: [facility]/pharmacy #[id number], 165, cm, 05/30/22 9:05:00 EST, Height/Length Dosing, 125, kg, 05/30/22 9:05:00 EST, Weight Dosing Start Date: 05/30/22 Stop Date: 06/04/22 Status: Ordered ProAir HFA 90 mcg/inh inhalation aerosol (1 source) Start: 06-03-2021 take 2 puff(s) by inhalation every four hours for wheezing ProAir HFA 90 mcg/inh inhalation aerosol 2 puff(s), Inhalation, q4hr for wheezing, 8.5 gram, Refill(s) 6, [facility]/pharmacy #[id number], 165, cm, 04/29/21 10:14:00 EST, Height/Length Dosing, 136.3, kg, 04/30/21 9:22:00 EST, Weight Dosing Start Date: 06/03/21 Status: Ordered 24 hr propranolol hydrochloride 60 mg extended release oral capsule (20 sources) beta-Adrenergi c Kaveh Start: 06-03-2024 take 1 capsule by mouth once daily propranolol 60 mg Cap-ER 60 mg = 1 cap(s), Oral, Daily, # 90 cap(s), Refills(s) 4, Pharmacy: [facility] #[id number], 165, cm, 06/03/24 13:33:00 EST, Height/Length Dosing, 118.7, kg, 06/03/24 13:33:00 EST, Weight Dosing Start Date: 06/03/24 Status: Ordered Start: 11-26-2022 take 1 capsule by [facility] once daily propranolol 60 mg Cap-ER 60 mg = 1 cap(s), Oral, Daily, # 90 cap(s), Refills(s) 4, Pharmacy: [facility]/pharmacy #[id number], 165, cm, 11/26/22 15:24:00 EDT, Height/Length Dosing, 121.5, kg, 11/26/22 15:24:00 EDT, Weight Dosing Start Date: 11/26/22 Status: Ordered Start: 11-26-2022 take 1 capsule by mo [facility] every twenty-four hours propranolol LA (Inderal LA) 60 MG 24 hr capsule Take 60 mg by mouth. 11/26/2022 Active Start: 06-30-2022 propranolol Re fills(s) 0 Start Date: 06/30/22 Status: Ordered Protonix 40 mg Tab-DR (1 source) Start: 06-26-2021 take 1 tablet by mouth once daily Protonix 40 mg Tab-DR 40 mg, Oral, Daily, # 90 tab(s), Refills(s) 3, Pharmacy: [facility]/pharmacy #[id number], 165, cm, 04/29/21 10:14:00 EST, Height/Length Dosing, 136.3, kg, 04/30/21 9:22:00 EST, Weight Dosing Start Date: 06/26/21 Status: Ordered rosuvastatin calcium 40 mg oral tablet (20 sources) HMG-CoA Reductase Inhibitor Start: 11-01-2021 take 1 tablet by mouth once daily at bedtime rosuvastatin 40 mg Tab 40 mg, Oral, Once a day (at bedtime), # 90 tab(s), Refills(s) 3, Pharmacy: [facility]/pharmacy #[id number], 165, cm, 08/29/21 19:07:00 EDT, Height/Length Dosing, 128, kg, 08/29/21 19:07:00 EDT, Weight Dosing Start Date: 11/01/21 Status: Ordered Start: 07-19-2020 take 1 tablet by [facility] once daily at bedtime rosuvastatin 40 mg Tab 40 mg, Oral, Once a day (at bedtime), # 90 tab(s), Refills(s) 3, Pharmacy: [facility]/pharmacy #[id number], 165, cm, 06/25/20 7:15:00 EST, Height/Length Dosing, 126.5, kg, 06/25/20 7:15:00 EST, Weight Dosing Start Date: 07/19/20 Status: Ordered topiramate 50 mg oral tablet (1 source) Start: 08-21-2021 take 1 tablet by mouth twice daily topiramate 50 mg Tab 50 mg = 1 tab(s), Oral, BID, Refills(s) 0 Start Date: 08/21/21 Status: Ordered traZODone hydrochloride 150 mg oral tablet (11 sources) Serotonin Reuptake Inhibitor Start: 03-15-2021 take 1 tablet by mouth once daily at bedtime as needed for sleep traZODONE 150 mg Tab 150 mg = 1 tab(s), Oral, Once a day (at bedtime), PRN Sleep, # 90 tab(s), Refills(s) 0 Start Date: 03/15/21 Status: Ordered valACYclovir 1000 mg oral tablet (4 sources) Herpesvirus Nucleoside Analog DNA Polymerase Inhibitor, Herpes Simplex Virus Nucleoside Analog DNA Polymerase Inhibitor, Herpes Zoster Virus Nucleoside Analog DNA Polymerase Inhibitor Start: 11-28-2021 End: 12-05-2021 take 1 tablet by mouth three times daily valacyclovir 1 g Tab 1 gm = 1 tab(s), Oral, TID, X 7 day(s), # 21 tab(s), Refills(s) 0, Pharmacy: [facility]/pharmacy #[id number], 165, cm, 11/28/21 18:28:00 EDT, Height/Length Dosing, 122, kg, 11/28/21 18:28:00 EDT, Weight Dosing Start Date: 11/28/21 Stop Date: 12/05/21 Status: Ordered Ventolin HFA 90 mcg/inh Aerosol (15 sources) Start: 06-07-2021 take 2 puff(s) by inhalation every four hours for wheezing Ventolin HFA 90 mcg/inh Aerosol 2 puff(s), Inhalation, q4hr for wheezing, 18 gram, Refill(s) 3, [facility]/pharmacy #[id number], 165, cm, 04/29/21 10:14:00 EST, Height/Length Dosing, 136.3, kg, 04/30/21 9:22:00 EST, Weight Dosing Start Date: 06/07/21 Status: Ordered vitamin b12 1 mg/ml injectable solution (20 sources) Vitamin B12 Start: 05-09-2024 inject 1 mL by intramuscular injection every month cyanocobalamin (Vitamin B-12) 1000 MCG/ML injection Inject 1 mL IntraMuscular once monthly 05/09/2024 Active Start: 04-04-2024 inject 1000 ug by in tramuscular injection every month cyanocobalamin 1000 mcg/mL Inj 1,000 mcg = 1 mL, IntraMuscular, qMonth, # 1 kit(s), Refills(s) 1, Pharmacy: [id number], 165, cm, 04/04/24 10:00:00 EST, Height/Length Dosing, 116.6, kg, 04/04/24 10:00:00 EST, Weight Dosing Start Date: 04/04/24 Status: Ordered Start: 02-26-2023 cyanocobalamin 1000 mcg/mL Inj 1,000 mcg = 1 mL, IntraMuscular, qMonth, Also dispense 3 ml syringes 25 gauge 1 needle, quantity sufficient for injections., # 10 mL, Refills(s) 1, Pharmacy: [facility]/pharmacy #[id number], 165, cm, 01/16/23 10:39:00 EDT, Height/Length Dosing, 118, kg, 01/16/23 10:39:00 EDT, Weight Dosing Start Date: 02/26/23 Status: Ordered Start: 02-26-2023 cyanocobalamin 1000 mcg/mL Inj 1,000 mcg = 1 mL, IntraMuscular, qMonth, Also dispense 3 ml syringes 25 gauge 1 needle, quantity sufficient for injections., # 10 mL, Refills(s) 1, [id number] 165, cm, 01/16/23 10:39:00 EDT, Height/Length Dosing, 118, kg, 01/16/23 10:39:00 EDT, Weight Dosing Start Date: 02/26/23 Status: Ordered Vitamin B12 1000 mcg Tab (20 sources) Start: 10-11-2020 take 1 tablet by mouth once daily Vitamin B12 1000 mcg Tab 1,000 mcg, Oral, Daily, # 90 tab(s), Refills(s) 1, Pharmacy: [facility]/pharmacy #[id number], 165, cm, 10/11/20 14:51:00 EDT, Height/Length Dosing, 130, kg, 09/19/20 16:43:00 EDT, Weight Dosing Start Date: 10/11/20 Status: Ordered Completed/Discontinued Medications Medication Drug Class(es) Dates Sig (Normalized) Sig (Original) psyllium 525 mg oral capsule (3 sources) Start: 06-14-2020 take 8 capsules by mouth once daily Metamucil 525 mg oral capsule 1,050 mg = 2 cap(s), Oral, Daily, Take 2 hour apart from the other medications with at least 8 ounces of water, # 160 cap(s), Refills(s) 1, [id number] 165, cm, 06/14/20 12:39:00 EST, Height/Length Dosing, 126.5, kg, 06/14/20 12:39... Start Date: 06/14/20 Status: Ordered Problems Active Problems Problem Classification Problem Date Documented Date Episodic/Chronic Abdominal pain (20 sources) Abdominal pain; Translations: [Unspecified abdominal pain] Onset: 08-30-19 Episodic Acute bronchitis (3 sources) Acute infective bronchitis; Translations: [Acute bronchitis due to other specified organisms] Onset: 06-30-19 Episodic Adjustment disorders (2 sources) Stress and adjustment reaction; Translations: [Reaction to severe stress, unspecified] Onset: 10-05-19 Chronic Administrative/social admission (5 sources) Patient encounter status; Translations: [Persons encountering health services in other specified circumstances] Onset: 05-27-19 Episodic Anxiety disorders (20 sources) Anxiety; Translations: [Generalized anxiety disorder] Onset: 10-04-19 23 04-24-2020 Chronic Attention-deficit, conduct, and disruptive behavior disorders (20 sources) Attention deficit hyperactivity disorder, predominantly inattentive type; Translations: [Attention-deficit hyperactivity disorder, predominantly inattentive type] Onset: 12-10-19 Chronic Bacterial infection; unspecified site (1 source) Bacterial infectious disease; Translations: [Other specified bacterial agents as the cause of diseases classified elsewhere] Onset: 06-17-19 Episodic Cardiac dysrhythmias (20 sources) Palpitations; Translations: [Tachycardia] Onset: 08-05-19 23 04-24-2020 Episodic Chronic obstructive pulmonary disease and bronchiectasis (20 sources) Pulmonary emphysema; Translations: [Emphysema, unspecified] Onset: 12-04-1910-27-2014 Chronic Chronic obstructive pulmonary disease and bronchiectasis (6 sources) Bronchitis; Translations: [Bronchitis, not specified as acute or chronic] Onset: 05-20-20 Episodic Chronic ulcer of skin (20 sources) Pressure ulcer of hip 02-18-2019 Chronic Coagulation and hemorrhagic disorders (20 sources) Petechiae of skin 10-23-2022 Episodic Conditions associated with dizziness or vertigo (16 sources) Vertigo; Translations: [Dizziness and giddiness] Onset: 12-03-1910-21-2018 Episodic Deficiency and other anemia (20 sources) Anemia; Translations: [Other specified anemias] Onset: 12-10-1906-28-2019 Episodic Deficiency and other anemia (20 sources) Microcytic anemia 08-09-2019 Episodic Deficiency and other anemia (14 sources) Iron deficiency anemia; Translations: [Iron deficiency anemia, unspecified] Onset: 11-05-19 Episodic Diabetes mellitus without complication (20 sources) Diabetes mellitus 02-02-2019 Chronic Diabetes mellitus without complication (20 sources) Hyperglycemia; Translations: [Prediabetes] Onset: 08-05-1907-27-2020 Episodic Diseases of mouth; excluding dental (20 sources) Angular cheilitis 10-15-2019 Episodic Diseases of white blood cells (20 sources) Leukocytosis 06-28-2019 Chronic Disorders of lipid metabolism (20 sources) Hypercholesterolemia 07-27-2020 Chronic Disorders of teeth and jaw (20 sources) Jaw pain; Translations: [Tenderness of temporomandibular joint] 10-15-2019 Episodic Esophageal disorders (20 sources) Acid reflux; Translations: [Gastroesophageal reflux disease] Onset: 10-04-1902-02-2019 Chronic Essential hypertension (20 sources) Hypertensive disorder; Translations: [Essential hypertension] Onset: 12-04-1911-23-2019 Chronic Fluid and electrolyte disorders (20 sources) Hypokalemia; Translations: [Hypokalemia] Onset: 11-27-1906-28-2019 Episodic Gastrointestinal hemorrhage (20 sources) Rectal hemorrhage 11-28-2019 Episodic Genitourinary symptoms and ill-defined conditions (20 sources) Urinary incontinence 10-21-2018 Chronic Genitourinary symptoms and ill-defined conditions (20 sources) Increased frequency of urination; Translations: [Blood in urine] Onset: 11-27-1910-15-2019 Episodic Hemorrhoids (15 sources) Hemorrhoids 10-21-2018 Episodic Inflammation; infection of eye (except that caused by tuberculosis or sexually transmitteddisease) (1 source) Conjunctivitis; Translations: [Unspecified conjunctivitis] Onset: 05-20-20 Episodic Inflammatory diseases of female pelvic organs (20 sources) Bacterial vaginosis 10-15-2019 Episodic Lymphadenitis (20 sources) Inguinal lymphadenopathy; Translations: [Localized enlarged lymph nodes] Onset: 12-04-1912-26-2019 Episodic Malaise and fatigue (19 sources) Fatigue 10-21-2018 Episodic Menstrual disorders (20 sources) Amenorrhea; Translations: [Menorrhagia] Onset: 12-10-1910-21-2018 Chronic Mood disorders (20 sources) Major depressive disorder; Translations: [Major depressive disorder, single episode, unspecified] Onset: 12-04-1910-21-2018 Chronic Nausea and vomiting (20 sources) Nausea 10-15-2019 Episodic Nonmalignant breast conditions (20 sources) Fibrocystic disease of breast 10-21-2018 Chronic Nonspecific chest pain (20 sources) Chest pain; Translations: [Chest pain, unspecified] Onset: 12-03-19 Episodic Nutritional deficiencies (20 sources) Cobalamin deficiency; Translations: [Iron deficiency] Onset: 11-05-1904-24-2020 Episodic Other and unspecified benign neoplasm (20 sources) Polyp of colon; Translations: [Polyp of colon] Onset: 10-04-1911-28-2019 Episodic Other circulatory disease (20 sources) Syncope due to orthostatic hypotension 10-21-2018 Episodic Other circulatory disease (5 sources) Elevated blood pressure 08-19-2024 Episodic Other connective tissue disease (20 sources) Fibromyalgia 02-02-2019 Episodic Other connective tissue disease (20 sources) Fibromyositis 11-10-2013 Episodic Other connective tissue disease (20 sources) Hematoma 10-21-2018 Episodic Other ear and sense organ disorders (5 sources) Otitis externa; Translations: [Unspecified otitis externa, unspecified ear] Onset: 06-03-19 Chronic Other ear and sense organ disorders (1 source) Otalgia, unspecified ear; Translations: [Otalgia, unspecified ear] Onset: 06-03-19 Episodic Other ear and sense organ disorders (9 sources) Pain of ear structure 06-03-2024 Episodic Other endocrine disorders (20 sources) Polycystic ovaries 10-21-2018 Chronic Other endocrine disorders (20 sources) Polycystic ovary syndrome; Translations: [Polycystic ovarian syndrome] Onset: 08-05-19 Chronic Other female genital disorders (20 sources) Abnormal uterine bleeding; Translations: [Abnormal uterine and vaginal bleeding, unspecified] 10-27-2019 Chronic Other female genital disorders (5 sources) Pain in female genitalia on intercourse; Translations: [Unspecified dyspareunia] Onset: 09-13-1909-12-2024 Chronic Other female genital disorders (20 sources) Vaginal odor 10-15-2019 Episodic Other gastrointestinal disorders (20 sources) Chronic idiopathic constipation 11-28-2019 Chronic Other gastrointestinal disorders (15 sources) Abdominal bloating 11-28-2019 Episodic Other lower respiratory disease (20 sources) Dyspnea 01-17-2021 Episodic Other lower respiratory disease (15 sources) Wheezing; Translations: [Wheezing] Onset: 11-09-19 Episodic Other nutritional; endocrine; and metabolic disorders (20 sources) Body mass index 40+ - severely obese; Translations: [Body mass index (BMI) 40.0-44.9, adult] Onset: 12-04-1911-28-2019 Chronic Other nutritional; endocrine; and metabolic disorders (15 sources) Disorder of carbohydrate metabolism 10-21-2018 Chronic Other nutritional; endocrine; and metabolic disorders (20 sources) Morbid obesity; Translations: [Morbid (severe) obesity due to excess calories] Onset: 12-04-1908-05-2019 Chronic Other nutritional; endocrine; and metabolic disorders (5 sources) Obesity 08-19-2024 Chronic Other nutritional; endocrine; and metabolic disorders (20 sources) Increased thirst 06-28-2019 Episodic Other nutritional; endocrine; and metabolic disorders (1 source) H/O: Disorder; Translations: [Personal history of other endocrine, nutritional and metabolic disease] Onset: 12-10-19 Episodic Other nutritional; endocrine; and metabolic disorders (20 sources) History of iron deficiency 12-09-2022 Episodic Other screening for suspected conditions (not mental disorders or infectious disease) (20 sources) Electrocardiogram abnormal; Translations: [Abnormal level of blood mineral] Onset: 12-10-1906-18-2020 Episodic Other skin disorders (20 sources) Acanthosis nigricans 10-21-2018 Episodic Other skin disorders (20 sources) Hirsutism; Translations: [Hirsutism] Onset: 12-10-1910-21-2018 Episodic Other skin disorders (20 sources) Vitiligo; Translations: [Vitiligo] Onset: 12-04-19 Episodic Other skin disorders (1 source) Eruption; Translations: [Rash and other nonspecific skin eruption] Onset: 09-01-19 Episodic Other upper respiratory disease (20 sources) Allergic rhinitis due to pollen; Translations: [Allergic rhinitis due to pollen] Onset: 06-03-1910-21-2018 Chronic Other upper respiratory infections (19 sources) Chronic sinusitis; Translations: [Chronic sinusitis, unspecified] Onset: 06-17-19 Chronic Otitis media and related conditions (20 sources) Eustachian tube disorder; Translations: [Acute eustachian tube salpingitis] Onset: 06-30-1909-27-2018 Episodic Ovarian cyst (20 sources) Cyst of ovary 10-21-2018 Episodic Prolapse of female genital organs (20 sources) Cystocele without uterine prolapse; Translations: [Relaxation of vaginal outlet AND/OR pelvis] Onset: 11-27-1910-21-2018 Chronic Residual codes; unclassified (20 sources) Obstructive sleep apnea syndrome; Translations: [Obstructive sleep apnea (adult) (pediatric)] Onset: 12-04-1910-21-2018 Chronic Residual codes; unclassified (20 sources) Sleep apnea 01-17-2021 Chronic Residual codes; unclassified (6 sources) Dependence on enabling machine or device; Translations: [Dependence on other enabling machines and devices] Onset: 12-04-19 Chronic Residual codes; unclassified (1 source) Refused procedure - parent's wish; Translations: [Procedure and treatment not carried out because of patient's decision for other reasons] Onset: 12-03-19 Episodic Residual codes; unclassified (20 sources) Insomnia; Translations: [Insomnia, unspecified] Onset: 11-27-19 Episodic Skin and subcutaneous tissue infections (2 sources) Impetigo; Translations: [Impetigo, unspecified] Onset: 11-29-19 Episodic Spondylosis; intervertebral disc disorders; other back problems (20 sources) Arthritis of spine 10-27-2014 Chronic Spondylosis; intervertebral disc disorders; other back problems (20 sources) Lumbar radiculopathy; Translations: [Neuritis AND/OR radiculitis due to displacement of lumbar intervertebral disc] Onset: 09-05-1910-21-2018 Episodic Sprains and strains (20 sources) Strain of muscle and/or tendon of forearm 01-17-2021 Episodic Substance-related disorders (15 sources) Cigarette smoker 02-18-2019 Chronic Unclassified (20 sources) Exposure to 2019 novel coronavirus 11-14-2019 Unclassified (5 sources) First encounter by subject 05-27-2024 Unclassified (5 sources) Patient encounter status 08-19-2024 Urinary tract infections (20 sources) Hemorrhagic cystitis 03-15-2021 Episodic Viral infection (1 source) Herpes zoster without complication; Translations: [Zoster without complications] Onset: 11-29-19 Episodic Viral infection (19 sources) Disease caused by 2019-nCoV 06-03-2021 Past or Other Problems Problem Classification Problem Date Documented Da te Episodic/Chronic Asthma (20 sources) Allergic asthma Resolved: 10-21-2018 12-20-2018 Chronic Other connective tissue disease (20 sources) Cramp in lower limb Onset: 03-04-2013 08-05-2013 Episodic Other nutritional; endocrine; and metabolic disorders (20 sources) Body mass index 30+ - obesity Resolved: 12-20-2018 12-20-2018 Chronic Other upper respiratory infections (20 sources) Sore throat symptom Resolved: 10-21-2018 04-30-2019 Episodic Respiratory failure; insufficiency; arrest (adult) (20 sources) Dependence on continuous positive airway pressure ventilation Resolved: 10-27-2014 12-20-2018 Chronic Results Test Name Value Interpretation Reference Range Facility Ambulatory Visit Summaryon 0 10-04-2024 Ambulatory Visit Summary Ambulatory Visit Summary KAYLA [place] :1975 Visit Date:10/04/2024 Ambulatory Visit Instructions Your Diagnosis Encounter for weight management Morbid obesity with BMI of 40.0-44.9, adult, Morbid obesity Insomnia ADHD (attention deficit hyperactivity disorder), inattentive type Stress at home Body mass index [BMI] 40.0-44.9, adult Generalized anxiety disorder Heart palpitations Hypokalemia Mild recurrent major depression Your Care Team Attending Physician - Serafin Roberson DO Primary Care Physician - Serafin Roberson DO This Is Your Medications List buPROPion (buPROPion 300 mg/24 hours ER Tab) duloxetine (Cymbalta 60 mg oral delayed release capsule) fluoxetine (FLUoxetine 20 mg Cap) phentermine (Adipex-P 37.5 mg Tab) potassium chloride (potassium chloride 10 mEq Cap-ER) Contact prescribing physician if questions or concerns Misc Prescription (B12) Misc Prescription (syringes) albuterol (Albuterol (Eqv-ProAir HFA) 90 mcg/inh inhalation aerosol) cyanocobalamin (cyanocobalamin 1000 mcg/mL Inj) cyanocobalamin (cyanocobalamin 1000 mcg/mL Inj) cyclobenzaprine (cyclobenzaprine 10 mg Tab) elderberry fluticasone nasal (Flonase 0.05 mg/inh [place]) folic acid (folic acid 1 mg Tab) gabapentin (gabapentin 600 mg Tab) hydrochlorothiazide (hydrochlorothiazide 25 mg Tab) ibuprofen (ibuprofen 800 mg Tab) meclizine (meclizine 12.5 mg Tab) metformin (metformin 500 mg Tab) montelukast (Singulair 10 mg Tab) pantoprazole (Protonix 40 mg Tab-DR) propranolol (propranolol 60 mg Cap-ER) Procedures Performed Epidural injection of lumbar spine using fluoroscopic guidance (12/10/2022), Injection of steroid into shoulder joint (08/14/2022), Epidural injection of lumbar spine using fluoroscopic guidance (01/29/2022), Injection of nerve root of lumbar spine using fluoroscopic guidance (11/21/2020), EGD - Esophagogastroduodenoscopy (06/25/2020), Epidural injection of lumbar spine using fluoroscopic guidance (05/16/2020), Injection of nerve root of lumbar spine using fluoroscopic guidance (02/08/2020), Injection of sacroiliac joint using fluoroscopic guidance (11/30/2019), Colonoscopy (09/29/2019), Duodenal biopsy (09/29/2019), EGD - Esophagogastroduodenoscopy (09/29/2019), Gastroesophageal junction (09/29/2019), Sigmoid colon polyp (09/29/2019), Nerve block with injection of lumbar spine using fluoroscopic guidance (08/10/2019), TPI - Trigger point injection (08/10/2019), Injection of sacroiliac joint using fluoroscopic guidance (05/12/2019), Right L4/5 Transforaminal Epidural Steroid Injection (11/24/2018), botox injections for migraine (04/08/2018), Injection of sacroiliac joint using fluoroscopic guidance (03/10/2018), left knee injection (12/17/2017), Injection of sacroiliac joint using fluoroscopic guidance (11/05/2016), Trigger point injection (11/05/2016), Injection of sacroiliac joint using fluoroscopic guidance (07/09/2016), TPI - Trigger point injection (02/07/2016), Trigger Point Injections (02/07/2016), Trochanteric bursa (04/12/2015), Trigger point injection (01/25/2015), back surgery, Tonsillectomy. Discharge Vitals Heart Rate (Peripheral) 77 Blood Pressure 112/70 Height 165 cm Height 65 in Weight 117.9 kg Weight 259.925 lb BMI 43.31 What to do next Scheduled Follow-Up Appointments 2024 3:20 PM EDT With: Serafin Roberson DO Where: [facility] [address] [place] [address]- Thursday 11:00 AM EDT With: Augustus MEDEL, Jeffy Galvan Where: [facility] You Need to Schedule the Following Appointments Follow Up with Serafin Roberson DO, RODRI, PED When: Within 3 months Comments: 3 month - controlled med - 20 min slot To go instructions: Continue adipex To continue on adipex long-term, you need to keep your weight below 243 Read State of [place] for insight into how to optimize your weight loss and maximize the chance of long-term, lasting results When trying to get healthy / lose weight, making sleep a priority is essential Make sure you're getting 7-9 hours of sleep most nights and waking up feeling rested most days When you see providers outside of [facility], please request that they send office visit notes every time you're seen there - this helps us take better care of you F/u 3 months Where: [address] [place] [address] [id number] Medications What How Much When Why Instructions Changed duloxetine (Cymbalta 60 mg oral delayed release capsule) 1 Capsules By Mouth Every day Mild recurrent major depression Pickup at [facility] Unchanged buPROPion (buPROPion 300 mg/ 24 hours ER Tab) 1 Tablets By Mouth Every day ADHD (attention deficit hyperactivity disorder), inattentive type Mild recurrent major depression Pickup at [facility] Unchanged fluoxetine (FLUoxetine 20 mg Cap) 1 Capsules By Mouth Ev (more content not included)... Normal [facility] Family Medicine Office/Clini c Noteon 10-04-2024 Family Medicine Office/Clinic Note Family Medicine Office/Clinic Note Chief Complaint Adipex F/U HPI Staff Patient here for F/U Adipex MARK 08/19/24 Lab 08/26/24 Patient here for F/U Adipex, WT. MARK 256 NEEDS REFILL Cymbalta Prozac. DUE: Mammogram/ Has been ordered History of Present Illness 48 Years old Female here to f/u for obesity and for weight management Social: Spouse: Vinnie - since 1995 Daughter and 2 grandchildren live in the house with them. Stress at home - 1 child (who lives in [place]) not speaking to her. That child's spouse remains in contact with the patient and her . 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 Pets: 1 cat Smoker: quit 4 years ago Alcohol: None Drugs: Marijuana vape - daily *some stress at home since her last appt - daughter was arrested recently --- transactional attorney seems to think it'll be a weak case against her Screening: Colon Cancer screenin - WITH TEN YEAR F/U; this patient does NOT have family history of colon cancer Breast cancer screening: OVERDUE; this patient does have a family history of breast cancer -- GRANDMOTHER Pap smear: OVERDUE Diabetes/ prediabetes: A1c: Hgb A1C %: 6.1 % High (08/14/22 09:51:00) Hgb A1c POC: 6 % (08/04/22 13:30:00) Smokers/ former smokers: Low dose lung CT: QUIT 4-5 years ago; 20+ pack year hx *will need screening via LDCT until age 56, starting at age 50 List of Providers: Previous PCP: Dr. Andreas Eckert Pain Management - Rupesh Gandara / Alyssa Young Oncology / Hematology - Daja Marion SYRUP BLENDER - Dr. Perkins Psych - Dr. Polly Schaffer Urology - unsure of name - has prolapsed bladder for the past 6 years, needs surgery to fix but must lose weight before the surgery To do list: read Driven to [facility] staff / Chief Complaint confirmed with the patient Interval history: The patient started adipex August 19, 2024 (was filled on August 26, 2024) The patient denies side effects; is tolerating without issue Starting weight: 256 95% of starting weight: 243 Weight at last appt: 259 Current weight: 256 The patient's goal weight is: 180 Approx weight when the patient graduated high school: 160 Highest weight ever: 299 I certify that I have reviewed the OARRS report and all PDMP information in this chart on this visit date has taken trazodone in the past but struggled with next morning drowsiness August 29, 2024 - Heme/Onc [facility] Bard[facility] LABS Cr/eGFR: eGFR: 79 mL/min/1.73 m2 (08/26/24 13:32:00) Creatinine: 0.9 mg/dL (08/26/24 13:32:00) A1c: Hgb A1C %: 5.2 % (08/26/24 13:33:00) Review of Systems PHQ Score Initial Depression Screen Score: 0 SCORE Physical Exam Vitals & Measurements HR: 77(Peripheral) BP: 112/70 SpO2: 98% HT: 65 in HT: 165 cm WT: 259.925 lb WT: 117.9 kg BMI: 43.31 PHYSICAL EXAM Constitutional: Vital signs reviewed; KAYLA [place] is well nourished, no acute distress - obese Lungs: Clear to auscultation, non-labored respiration - expansion is symmetric Heart: Normal rate and rhythm, normal peripheral perfusion Lymph: Deferred Abd: Deferred : Deferred MSK: Normal gait and station Skin: Warm, dry Neurologic: Awake, alert and oriented Psychiatric: Cooperative, appropriate mood and affect, judgement is generally appropriate Assessment/Plan 1. Encounter for weight management (Z76.89: Persons encountering health services in other specified circumstances) Chronic Improved since last appt after a month of adipex Exercise seems to be helping Dietary changes have helped as well OARRS have been reviewed for the preceding 12 months and documented in the record Discussed slowly increasing walking with a goal of 40 mins daily Has two more months left eligible for adipex Patient is aware this medication is prescribed 30 days at a time with monthly appointments prior to the 2nd and 3rd prescription The patient is aware they need to demonstrate weight-loss to qualify for a 3rd prescription Discussed the value of books for reference like [place] of [place] f/u 1 month 2. Morbid obesity with BMI of 40.0-44.9, adult, (E66.01: Morbid (severe) obesity due to excess calories)Morbid obesity see #1 4. Insomnia (G47.00: Insomnia, unspecified) doing well with OTC meds for now stress is making worse lately 5. ADHD (attention deficit hyperactivity disorder), inattentive type (F90.0: Attention-deficit hyperactivity disorder, predominantly inattentive type) Impression: Chronic Well controlled ADHD On Bupropion Coping is appropriate The patient describes NO side effects Plan: Continue Bupropion Discussed the rationale for reviewing Driven to Distraction in the future or reading one of Dr. Mckinney's other books Emphasized aga (more content not included)... [facility] Comment on above: Result Comment: Elec tronically Signed By: Serafin Roberson DO.newton\Date and Time Signed: 10/04/24 09:11 EDT Provider Letteron 10-04-2024 Provider Letter Provider Letter October 04, 2024 [address] [place] [address] : 1975 To Whom It May Concern, Please excuse above patient from work from time missed this morning. In late due to an appointment Date of Illness: From: 10/04/2024 To: 10/04/2024 May Return to Work On: 10/04/2024 Sincerely, Family Medicine [place] [address] [place] [address] [facility] Endometrial biopsyon 025 Norma Zapata LPN 5:12 PM Endometrial biopsy Date/Time: 09/26/2024 3:31 PM Performed by: Dada Perkins DO Authorized by: Dada Perkins DO Consent: Consent obtained: written Consent given by: patient Alternatives discussed: observation Patient agrees, verbalizes understanding, and wants to proceed: yes Indications: Indications: abnormal uterine bleeding and other menstrual disorder Pre-procedure: Urine test: negative Procedure: A bimanual exam was performed: no Tenaculum used: yes A local block was performed: no Cervix dilated: no Number of passes: 1 Findings: Cervix: normal Specimen collected: specimen collected and sent to pathology [facility] Healthcare Provider Letteron 09-01-2024 Provider Letter Provider Letter September 01, 2024 [address] [place] [address] : 1975 Dear _ , We have been trying to reach you with no success. It is important that you return our call regarding your recent lab upon receiving this letter. Also, at the time of your call, please provide us with your current information. Thank you for your prompt attention to this matter. Sincerely, Family Medicine [place] [address] [place] [address] [facility] ED Pat Eduon 08-29-2024 ED Pat Edu ED Pat Edu Pharmacology Intramuscular Injection Instructions Using a Syringe and Vial, Adult An intramuscular (IM) injection is a shot of medicine that is given into a muscle. An IM injection may be given when medicine needs to start working right away or when medicine cannot be given any other way. You will use a single-use syringe to give the IM injection. The medicine comes in a bottle (vial). You will fill the syringe with medicine from the vial. Before your first injection, your health care provider will show you or your caregiver how to give the injection at home. Use only the syringe, needle, and medicine that your provider prescribes. Supplies needed: ??? Medicine guide or insert that came with the syringe. ? Follow directions from the guide about how to prepare and give the injection. This is important because the directions may be different for each medicine. ??? Medicine prescribed by your provider. ??? Syringe. ??? Needle. Use the needle length and size (gauge) that your provider or pharmacist gives to you. Do not reuse needles. Use each needle only once. ??? Alcohol wipes. ??? Bandage. ??? A container to put used syringes. ? This may be a sharps container or a hard plastic container that has a secure lid, such as an empty laundry detergent bottle. How to choose a site for injection Follow instructions from your provider about where to give the injection. Generally: ??? You may give the injection in the hip. ??? You may also give the injection in the upper arm or outer thigh, depending on the amount of medicine in the injection and your muscle mass. Do not inject the medicine in the same spot each time. Do not inject over areas of skin that are open, infected, or bruised. How to locate an injection site Follow these instructions to find the exact location for each injection site. Outer thigh 1. Imagine that the thigh is divided into three equal sections (thirds) between the knee and the hip. 2. The injection site is in the middle third, on the outer side of the thigh. Upper arm 1. Find the bony point at the top of the arm (acromion process). Place two fingers just under the acromion process. 2. Under the two fingers, picture an upside-down triangle over the arm muscle. The injection site is in the middle of the triangle. Hip 1. Place the palm of your hand on the outside of the hip so your wrist is at the top of the upper leg. 2. Your thumb should point toward the groin. 3. Use your ring finger and little finger to feel the upper edge of the pelvic bone. 4. Spread your index finger and middle finger apart from each other into a V shape. 5. The injection site is the area between those fingers. Preparing to give an IM injection 1. Check the medicine and syringe for any damage. Do not give the medicine if you see these things: ??? Cracked glass vial. ??? Cloudy medicine. ??? Clumps or solids floating in the medicine. ? If you see these things, contact your pharmacy or provider. 2. Get in a comfortable position so that the muscle site is relaxed. This depends on the site of the injection. How to give an IM injection using medicine from a vial 1. Wash your hands with soap and water for at least 20 seconds. You may also use a hand trouble locater. 2. Wipe the injection site with an alcohol wipe. Let the site air-dry. 3. Gently roll the medicine vial between your hands to mix it. Do not shake the vial. 4. If there is a plastic covering on the vial, remove it. Clean the top rubber part of the vial with an alcohol wipe. 5. Remove the plastic cover from the needle on the syringe. Do not let the needle touch anything. 6. Pull the plunger back to draw air into the syringe. Stop the plunger when the dose indicator gets to the line that is the same as your medicine dose. 7. Push the needle through the rubber on the top of the vial. Do not turn the vial over. 8. Push the plunger in all the way. This pushes air into the vial. 9. While the needle is still in the vial, turn the vial upside-down and hold it at eye level. 10. Pull back slowly on the plunger to draw medicine into the syringe. Stop when the dose indicator is at the correct amount of medicine needed. 11. Remove the needle from the vial. Do not let the needle touch anything. 12. Hold the syringe with the needle pointing up. Check the syringe for any remaining air bubbles. ??? If there are air bubbles, flick the syringe with your finger until the air bubbles rise to the top. Then, gently push on the plunger until you can see a drop of medicine appear at the tip of the needle. This will clear any remaining air bubbles from the syringe. 13. Hold the syringe in your writing hand like a pencil. 14. Gently but quickly, put the needle straight into the skin. The needle should be at a 90-degree angle to the skin. Push the needle all the way (more content not included)... Normal [facility] CBC w/ Auto Diffon 5 Basophils/100 WBC (Bld) 1.0 % Normal 0.0-2.0 [facility] Comment on above: Performed By: #### 2 [id number] #### [facility] Laboratory [address] [place] [address] Basophils/Leukocytes Auto (Bld) [Pure # fraction] 0.1 E9/L Normal 0.0-0.2 [facility] Comment on above: Performed By: #### 2 [id number] #### [facility] [address] [place] [address] Eosinophils (Bld) [#/Vol] 0.2 E9/L Normal 0.0-0.5 [facility] Comment on above: Performed By: #### 2 [id number] #### [facility] [address] [place] [address] Eosinophils/100 WBC (Bld) 2.2 % Normal 0.0-8.0 [facility] Comment on above: Performed By: #### 2 [id number] #### [facility] [address] [place] [address] Erythrocyte distribution width (RBC) [Ratio] 16.0 % High 10.9-14.2 [facility] Comment on above: Performed By: #### 2 [id number] #### [facility] [address] [place] [address] Hematocrit (Bld) [Volume fraction] 37.5 % Normal 34.0-46.0 [facility] Comment on above: Performed By: #### 2 [id number] #### [facility] [address] [place] [address] Hemoglobin (Bld) [Mass/Vol] 12.7 g/dL Normal 12.0-16.0 [facility] Comment on above: Performed By: #### 2 [id number] #### [facility] [address] [place] [address] Lymphocytes (Bld) [#/Vol] 1.7 E9/L Normal 1.0-4.0 [facility] Comment on above: Performed By: #### 2 [id number] #### [facility] [address] [place] [address] Lymphocytes/100 WBC (Bld) 23.9 % Normal 14.0-50.0 [facility] Comment on above: Performed By: #### 2 [id number] #### [facility] [address] [place] [address] MCH (RBC) [Entitic mass] 29.4 pg Normal 27.0-34.0 [facility] Comment on above: Performed By: #### 2 [id number] #### [facility] [address] [place] [address] MCHC (RBC) [Mass/Vol] 33.8 g/dL Normal 31.4-36.0 [facility] Comment on above: Performed By: #### 2 [id number] #### [facility] [address] [place] [address] MCV (RBC) [Entitic vol] 87.0 fL Normal 80.0-100.0 [facility] Comment on above: Performed By: #### 2 [id number] #### [facility] [address] [place] [address] Monocytes (Bld) [#/Vol] 0.3 E9/L Normal 0.2-1.0 [facility] Comment on above: Performed By: #### 2 [id number] #### [facility] [address] [place] [address] Neutrophils (Bld) [#/Vol] 5.0 E9/L Normal 2.0-7.5 [facility] Comment on above: Performed By: #### 2 [id number] #### [facility] [address] [place] [address] Neutrophils/100 WBC (Bld) 68.2 % Normal 36.0-75.0 [facility] Comment on above: Performed By: #### 2 [id number] #### [facility] [address] [place] [address] Platelet mean volume (Bld) [Entitic vol] 8.9 fL Normal 6.4-10.8 [facility] Comment on above: Performed By: #### 2 [id number] #### [facility] [address] [place] [address] Platelets (Bld) [#/Vol] 367.0 E9/L Normal 150.0-500. 0 [facility] Comment on above: Performed By: #### 2 [id number] #### [facility] [address] [place] [address] RBC (Bld) [#/Vol] 4.3 E12/L Normal 4.3-5.9 [facility] Comment on above: Performed By: #### 2 [id number] #### [facility] [address] [place] [address] WBC corrected for nucl RBC Auto (Bld) [#/Vol] 7.3 E9/L Normal 4.0-11.0 [facility] Comment on above: Performed By: #### 2 [id number] #### [facility] [address] [place] [address] CHEMISTRYOrdered By: Tarah Landon on 08-26-2024 Albumin DL <= 20 mg/L (U) [Mass/Vol] 0.7 mg/dL Normal 0.0 - 1.9 mg/dL Rem[facility] Chem Ur Total Protein 6.4 mg/dL Invalid Interpretation Code Remisol Chem CHEMISTRYOrdered By: SYSTEM SYSTEM on 08-26-2024 Protein/Creatinine (U) [Ratio] 7.90 mg/gm Cr Normal 0.00 - 200.00 mg/gm Cr Remisol Chem U Creatinine 81.5 mg/dL Invalid Interpretation Code Remisol Chem Cobalamin (Vitamin B12) [Mass/Vol] 225 pg/mL Normal 50 - 1500 pg/mL [facility] Chem Creatinine [Mass/Vol] 0.9 mg/dL Normal 0.5 - 1.3 mg/dL [facility] Chem eGFR 79 mL/min/1.73 m2 Normal >=59mL/min /1.73 m2 [facility] Ferritin [Mass/Vol] 50 ng/mL Normal 11 - 307 ng/mL [facility] Folate [Mass/Vol] ng/mL Normal >=6.7ng/mL [facility] Chem Iron [Mass/Vol] 56 ug/dL Normal 35 - 153 mcg/dL [facility] Iron binding capacity [Mass/Vol] 330 ug/dL Normal 250 - 400 mcg/dL [facility] Chem Iron saturation [Mass fraction] 17 % Low 20 - 50 % [facility] Chem Transferrin [Mass/Vol] 236 mg/dL Normal 200 - 370 mg/dL [facility] Chem Urea nitrogen/Creatinine [Mass ratio] 10 mg/mg Normal 10 - 20 [facility] Chem CHEMISTRYOrdered By: Rupinder Peace on 08-26-2024 HbA1c (Bld) [Mass fraction] 5.2 % Normal <=5.9% [facility] [place] Chem[facility] CHEMISTRYOrdered By: Adonay Almeida on 08-26-2024 Albumin [Mass/Vol] 4.0 g/dL Normal 3.3 - 5.0 gm/dL [facility] Chem Albumin/Globulin [Mass ratio] 1.3 {ratio} Normal 1.1 - 2.2 [facility] Chem ALP [Catalytic activity/Vol] 42 [iU]/d Normal 21 - 98 Int._Unit/ L [facility] Chem ALT No additional P-5'-P [Catalytic activity/Vol] 13 [iU]/d Normal 6 - 46 Int._Unit/ L [facility] Chem Anion gap [Moles/Vol] 12 mmol/L Normal 6 - 16 mEq/L [facility] AST [Catalytic activity/Vol] 12 [iU]/d Normal 5 - 43 Int._Unit/ L [facility] Bilirubin [Mass/Vol] 0.5 mg/dL Normal 0.0 - 1 .1 mg/dL [facility] Calcium [Mass/Vol] 9.6 mg/dL Normal 8.9 - 11. 1 mg/dL [facility] Chloride [Moles/Vol] 101 mmol/L Normal 101 - 1 11 mmol/L [facility] CO2 [Moles/Vol] 26 mmol/L Normal 21 - 31 mmol/L [facility] Globulin (S) [Mass/Vol] 3.0 g/dL Normal 1.4 - 4.0 gm/dL [facility] Glucose [Mass/Vol] 116 mg/dL Normal 55 - 199 mg/dL [facility] Chem Potassium [Moles/Vol] 3.2 mmol/L Low 3.5 - 5.3 mmol/L [facility] Chem Protein [Mass/Vol] 7.0 g/dL Normal 6.0 - 7.8 gm/dL [facility] Sodium [Moles/Vol] 136 mmol/L Normal 135 - 145 mmol/L [facility] Chem Urea nitrogen [Mass/Vol] 9 mg/dL Normal 5 - 21 mg/dL [facility] Chem CMPon 08-26-2024 Creatinine [Mass/Vol] 0.9 mg/dL Normal 0.5-1.3 [facility] Comment on above: Performed By: #### 2 [id number] #### [facility] [address] [place] [address] Urea nitrogen/Creatinine [Mass ratio] 10 No Units Normal 10-20 [facility] Comment on above: Performed By: #### 2 [id number] #### [facility] [address] [place] [address] Albumin [Mass/Vol] 4.0 g/dL Normal 3.3-5.0 [facility] Comment on above: Performed By: #### 2 [id number] #### [facility] [address] [place] [address] Albumin/Globulin (S) [Mass conc ratio] 1.3 Normal 1.1-2.2 [facility] Comment on above: Performed By: #### 2 [id number] #### [facility] [address] [place] [address] ALP [Catalytic activity/Vol] 42 Int._Unit/L Normal 21-98 [facility] Comment on above: Performed By: #### 2 [id number] #### [facility] [address] [place] [address] ALT No additional P-5'-P [Catalytic activity/Vol] 13 Int._Unit/L Normal 6-46 [facility] Comment on above: Performed By: #### 2 [id number] #### [facility] [address] [place] [address] Anion gap [Moles/Vol] 12 mmol/L Normal 6-16 [facility] Comment on above: Performed By: #### 2 [id number] #### [facility] [address] [place] [address] AST [Catalytic activity/Vol] 12 Int._Unit/L Normal 5-43 [facility] Comment on above: Performed By: #### 2 [id number] #### [facility] [address] [place] [address] Bilirubin [Mass/Vol] 0.5 mg/dL Normal 0.0-1.1 [facility] Comment on above: Performed By: #### 2 [id number] #### [facility] [address] [place] [address] Calcium [Mass/Vol] 9.6 mg/dL Normal 8.9-11.1 [facility] Comment on above: Performed By: #### 2 [id number] #### [facility] [address] [place] [address] Chloride [Moles/Vol] 101 mmol/L Normal 101-111 [facility] Comment on above: Performed By: #### 2 [id number] #### [facility] [address] [place] [address] CO2 [Moles/Vol] 26 mmol/L Normal 21-31 [facility] Comment on above: Performed By: #### 2 [id number] #### [facility] [address] [place] [address] Globulin (S) [Mass/Vol] 3.0 g/dL Normal 1.4-4.0 [facility] Comment on above: Performed By: #### 2 [id number] #### [facility] [address] [place] [address] Glucose [Mass/Vol] 116 mg/dL Normal 55-199 [facility] Comment on above: Performed By: #### 2 [id number] #### [facility] [address] [place] [address] Potassium [Moles/Vol] 3.2 mmol/L Low 3.5-5.3 [facility] Comment on above: Performed By: #### 2 [id number] #### [facility] [address] [place] [address] Protein [Mass/Vol] 7.0 g/dL Normal 6.0-7.8 [facility] Comment on above: Performed By: #### 2 [id number] #### [facility] [address] [place] [address] Sodium [Moles/Vol] 136 mmol/L Normal 135-145 [facility] Comment on above: Performed By: #### 2 [id number] #### [facility] [address] [place] [address] Urea nitrogen [Mass/Vol] 9 mg/dL Normal 5-21 [facility] Comment on above: Performed By: #### 2 [id number] #### [facility] [address] [place] [address] Ferritinon 08-26-2024 Ferritin [Mass/Vol] 50 ng/mL Normal 11-307 [facility] Comment on above: Performed By: #### 2 [id number] #### [facility] [address] [place] [address] Folateon 08-26-2024 Folate [Mass/Vol] ng/mL Normal >=6.7 [facility] Comment on above: Performed By: #### 2 [id number] #### [facility] [address] [place] [address] HEMATOLOGYOrdered By: SYSTEM SYSTEM on 08-26-2024 Basophils/100 WBC (Bld) 1.0 % Normal 0.0 - 2.0 % Remisol Heme Basophils/Leukocytes Auto (Bld) [Pure # fraction] 0.1 E9/L Normal 0.0 - 0.2 E9/L Rem[facility] Heme Eosinophils (Bld) [#/Vol] 0.2 E9/L Normal 0.0 - 0.5 E9/L Remisol Heme Eosinophils/100 WBC (Bld) 2.2 % Normal 0.0 - 8.0 % Remisol Heme Erythrocyte distribution width (RBC) [Ratio] 16.0 % High 10.9 - 14.2 % Remisol Heme Hematocrit (Bld) [Volume fraction] 37.5 % Normal 34.0 - 46.0 % Remisol Heme Hemoglobin (Bld) [Mass/Vol] 12.7 g/dL Normal 12.0 - 16.0 gm/dL Remisol Heme Lymphocytes (Bld) [#/Vol] 1.7 E9/L Normal 1.0 - 4.0 E9/L Remisol Heme Lymphocytes/100 WBC (Bld) 23.9 % Normal 14.0 - 50.0 % Remisol Heme MCH (RBC) [Entitic mass] 29.4 pg Normal 27.0 - 34.0 pg Remisol Heme MCHC (RBC) [Mass/Vol] 33.8 g/dL Normal 31.4 - 36.0 gm/dL Remisol Heme MCV (RBC) [Entitic vol] 87.0 fL Normal 80.0 - 100.0 fL Remisol Heme Monocytes (Bld) [#/Vol] 0.3 E9/L Normal 0.2 - 1.0 E9/L Remisol Heme Monocytes/100 WBC (Bld) 4.7 % Normal 4.0 - 14.0 % Remisol Heme Neutrophils (Bld) [#/Vol] 5.0 E9/L Normal 2.0 - 7.5 E9/L Remisol Heme Neutrophils/100 WBC (Bld) 68.2 % Normal 36.0 - 75.0 % Remisol Heme Platelet mean volume (Bld) [Entitic vol] 8.9 fL Normal 6.4 - 10.8 fL Remisol Heme Platelets (Bld) [#/Vol] 367.0 E9/L Normal 150.0 - 500.0 E9/L Remisol Heme RBC (Bld) [#/Vol] 4.3 E12/L Normal 4.3 - 5.9 E12/L Remisol Heme WBC corrected for nucl RBC Auto (Bld) [#/Vol] 7.3 E9/L Normal 4.0 - 11.0 E9/L Remisol Heme [id number] 08-26-2024 HbA1c (Bld) [Mass fraction] 5.2 % Normal <=5.9 [facility] Comment on above: Performed By: #### [id number] #### [facility] [address] [place] [address] Ironon 08-26-2024 Iron [Mass/Vol] 56 microgram/dL Normal 35-153 [facility] Comment on above: Performed By: #### 2 [id number] #### [facility] [address] [place] [address] Iron Saturationon 08-26-2024 Iron binding capacity [Mass/Vol] 330 microgram/dL Normal 250-400 [facility] Comment on above: Performed By: #### 2 [id number] #### [facility] [address] [place] [address] Iron saturation [Mass fraction] 17 % Low 20-50 [facility] Comment on above: Performed By: #### 2 [id number] #### [facility] [address] [place] [address] Transferrinon 08-26-2024 Transferrin [Mass/Vol] 236 mg/dL Normal 200-370 [facility] Comment on above: Performed By: #### 2 [id number] #### [facility] [address] [place] [address] U Microalbon 08-26-2024 Albumin DL <= 20 mg/L (U) [Mass/Vol] 0.7 mg/dL Normal 0.0-1.9 [facility] Comment on above: Performed By: #### 1 [id number] #### [facility] [address] [place] [address] U Protein/Creat Ratioon Ur Total Protein 6.4 mg/dL Invalid Interpretation Code [facility] Comment on above: Performed By: #### 1 [id number] #### [facility] [address] [place] [address] Protein/Creatinine (U) [Ratio] 7.90 mg/gm Cr Normal .00-200.00 [facility] Comment on above: Performed By: #### 1 [id number] #### [facility] [address] [place] [address] U Creatinine 81.5 mg/dL Invalid Interpretation Code [facility] Comment on above: Performed By: #### 1 [id number] #### [facility] [address] [address] Vit B12on 08-26-2024 Cobalamin (Vitamin B12) [Mass/Vol] 225 pg/mL Normal 50-1500 [facility] Comment on above: Performed By: #### 2 [id number] #### [facility] [address] [address] eGFRon 08-26-2024 eGFR 79 mL/min/1.73 m2 Normal >=59 [facility] Comment on above: Performed By: #### 1 [id number] #### [facility] [address] [place] [address] Ambulatory Visit Summaryon 0 08-19-2024 Ambulatory Visit Summary Ambulatory Visit Summary KAYLA MONTANA :1975 Visit Date:08/19/2024 Ambulatory Visit Instructions Your Diagnosis ADHD (attention deficit hyperactivity disorder), inattentive type Elevated blood pressure reading Proteinuria Lower urinary tract symptoms (LUTS) Encounter for weight management Obesity Adult BMI 40.0-44.9 kg/sq m Your Care Team Attending Physician - Serafin Roberson DO Primary Care Physician - Serafin Roberson DO This Is Your Medications List Contact prescribing physician if questions or concerns Misc Prescription (syringes) albuterol (Albuterol (Eqv-ProAir HFA) 90 mcg/inh inhalation aerosol) buPROPion (buPROPion 300 mg/24 hours ER Tab) cyanocobalamin (cyanocobalamin 1000 mcg/mL Inj) cyclobenzaprine (cyclobenzaprine 10 mg Tab) duloxetine (duloxetine 30 mg Cap-DR) elderberry fluoxetine (FLUoxetine 20 mg Cap) fluticasone nasal (Flonase 0.05 mg/inh [place]) folic acid (folic acid 1 mg Tab) gabapentin (gabapentin 600 mg Tab) hydrochlorothiazide (hydrochlorothiazide 25 mg Tab) ibuprofen (ibuprofen 800 mg Tab) meclizine (meclizine 12.5 mg Tab) metformin (metformin 500 mg Tab) montelukast (Singulair 10 mg Tab) pantoprazole (Protonix 40 mg Tab-DR) potassium chloride (potassium chloride 10 mEq Cap-ER) propranolol (propranolol 60 mg Cap-ER) [Image Removed: STOP]Stop taking these medications azithromycin (Zithromax 500 mg oral tablet) benzonatate (benzonatate 200 mg oral capsule) Procedures Performed Epidural injection of lumbar spine using fluoroscopic guidance (12/10/2022), Injection of steroid into shoulder joint (08/14/2022), Epidural injection of lumbar spine using fluoroscopic guidance (01/29/2022), Injection of nerve root of lumbar spine using fluoroscopic guidance (11/21/2020), EGD - Esophagogastroduodenoscopy (06/25/2020), Epidural injection of lumbar spine using fluoroscopic guidance (05/16/2020), Injection of nerve root of lumbar spine using fluoroscopic guidance (02/08/2020), Injection of sacroiliac joint using fluoroscopic guidance (11/30/2019), Colonoscopy (09/29/2019), Duodenal biopsy (09/29/2019), EGD - Esophagogastroduodenoscopy (09/29/2019), Gastroesophageal junction (09/29/2019), Sigmoid colon polyp (09/29/2019), Nerve block with injection of lumbar spine using fluoroscopic guidance (08/10/2019), TPI - Trigger point injection (08/10/2019), Injection of sacroiliac joint using fluoroscopic guidance (05/12/2019), Right L4/5 Transforaminal Epidural Steroid Injection (11/24/2018), botox injections for migraine (04/08/2018), Injection of sacroiliac joint using fluoroscopic guidance (03/10/2018), left knee injection (12/17/2017), Injection of sacroiliac joint using fluoroscopic guidance (11/05/2016), Trigger point injection (11/05/2016), Injection of sacroiliac joint using fluoroscopic guidance (07/09/2016), TPI - Trigger point injection (02/07/2016), Trigger Point Injections (02/07/2016), Trochanteric bursa (04/12/2015), Trigger point injection (01/25/2015), back surgery, Tonsillectomy. Discharge Vitals Heart Rate (Peripheral) 76 Blood Pressure 120/82 Height 165 cm Height 65 in Weight 116.3 kg Weight 256.397 lb BMI 42.72 What to do next Scheduled Follow-Up Appointments Thursday 10:20 AM EDT With: Augustus MEDEL, Jeffy Galvan Where: Oncology Thursday 9:15 AM EDT With: Alyssa Young PA-C Where: [facility] 2024 3:20 PM EDT With: Serafin Roberson DO Where: [facility] [address] [place] [address]- You Need to Schedule the Following Appointments Follow Up with Da MITTAL, RODRI Schmidt PED When: Within 3 months Comments: 20 min slot To go instructions: No changes today Read Driven to Distraction by Suman Mckinney to learn more about ADHD [email or web address] ------ To go instructions: Begin adipex; start with half a tablet in the morning and make sure you take with food After a week or two, when you feel comfortable, increase to who tablet You'll want to focus on cutting back sweets etc that will you lose weight I like the book: State of Slim to help with developing a weight loss / lifestyle / meal plan To continue on adipex long-term, you need to keep your weight below 243 Read State of Slim for insight into how to optimize your weight loss and maximize the chance of long-term, lasting results When trying to get healthy / lose weight, making sleep a priority is essential Make sure you're getting 7-9 hours of sleep most nights and waking up feeling rested most days F/u 3 months ------ *When you see providers outside of [facility], please request that they send office visit notes every time you're seen there - this helps us take better care of you Follow up 3 months Where: [address] [place] [address] (more content not included)... Normal [facility] Family Medicine Office/Clini c Noteon 08-19-2024 Family Medicine Office/Clinic Note Family Medicine Office/Clinic Note Chief Complaint High BP HPI Staff Patient here fir Acute visit for High BP readings MARK 07/08/24 Labs 04/20/24 Patient had a BP 160/100 she mentioned it got worse during Flu. She also had bronchitis and got a Z Moises. she said 140/90 is average now. Needs REFILL: Potassium Patient is here for follow up on hypertension. How often are you checking your blood pressure? Couple times a week What are your average readings? _ Do you have any of the following symptoms? Chest Pain? no Palpitations? no ROSENBERG/SOB? no Headache? no Peripheral Edema? no Light Headedness? no Yearly BMP: UTD Refill needed?: no History of Present Illness 48 Years old Female here for high BP- RKW HPI staff / Chief Complaint confirmed with the patient Social: Spouse: Vinnie - since 1995 Daughter and 2 grandchildren live in the house with them. Stress at home - 1 child (who lives in [place]) not speaking to her. That child's spouse remains in contact with the patient and her . 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 Pets: 1 cat Smoker: quit 4 years ago Alcohol: None Drugs: Marijuana vape - daily Screening: Colon Cancer screenin - WITH TEN YEAR F/U; this patient does NOT have family history of colon cancer Breast cancer screening: OVERDUE; this patient does have a family history of breast cancer -- GRANDMOTHER Pap smear: OVERDUE Diabetes/ prediabetes: A1c: Hgb A1C %: 6.1 % High (08/14/22 09:51:00) Hgb A1c POC: 6 % (08/04/22 13:30:00) Smokers/ former smokers: Low dose lung CT: QUIT 4-5 years ago; 20+ pack year hx *will need screening via LDCT until age 56, starting at age 50 List of Providers: Previous PCP: Dr. Andreas Eckert Pain Management - Rupesh Gandara / Alyssa Young Oncology / Hematology - Daja Marion SYRUP BLENDER - Dr. Perkins Psych - Dr. Polly Schaffer Urology - unsure of name - has prolapsed bladder for the past 6 years, needs surgery to fix but must lose weight before the surgery To do list: read Driven to Distraction HPI staff / Chief Complaint confirmed with the patient seen in [facility] on 08/12/24 for bronchitis given rx for tessalon, prednisone Interval history: The patient started adipex August 19, 2024 The patient denies side effects; is tolerating without issue Starting weight: 256 95% of starting weight: 243 Weight at last appt: n/a Current weight: 256 The patient's goal weight is: 180 Approx weight when the patient graduated high school: 160 Highest weight ever: 299 I certify that I have reviewed the OARRS report and all PDMP information in this chart on this visit date (anything tagged from the patients medical record will be at the bottom of this section) LABS Cr/eGFR: eGFR: 80 mL/min/1.73 m2 (03/31/24 12:38:00) Creatinine: 0.9 mg/dL (03/31/24 12:38:00) From last note: Review of Systems PHQ Score Initial Depression Screen Score: 0 SCORE Physical Exam Vitals & Measurements HR: 76(Peripheral) BP: 120/82 SpO2: 96% HT: 165 cm HT: 65 in WT: 256.397 lb WT: 116.3 kg BMI: 42.72 PHYSICAL EXAM Constitutional: Vital signs reviewed; KAYLA MONTANA is well nourished, no acute distress - obese Head: Atraumatic, normocephalic Eye: EOMI, normal conjunctiva ENT: Moist oral mucosa, external inspection of ears and nose is unremarkable Neck: Trachea is midline, no tenderness Lungs: Clear to auscultation, non-labored respiration - expansion is symmetric Heart: Normal rate and rhythm, normal peripheral perfusion Lymph: Deferred Abd: Deferred : Deferred MSK: Normal gait and station Skin: Warm, dry Neurologic: Awake, alert and oriented, speech is normal, no focal deficits, CN II-XII grossly intact Psychiatric: Cooperative, pleasant - fastidious and perseverate --- insight and judgement generally adequate Assessment/Plan 1. ADHD (attention deficit hyperactivity disorder), inattentive type (F90.0: Attention-deficit hyperactivity disorder, predominantly inattentive type) Impression: Chronic Well controlled ADHD On Bupropion Coping is appropriate The patient describes NO side effects Plan: Continue Bupropion Discussed the rationale for reviewing Driven to Distraction in the future or reading one of Dr. Mckinney's other books Emphasized again that long-term treatment plan includes cognitive behavioral therapy specific for ADHD f/u 3 months 2. Elevated blood pressure reading (R03.0: Elevated blood-pressure reading, without diagnosis of hypertension) no concerns today will continue to monitor 3. Proteinuria (R80.9: Proteinuria, unspecified) check urine protein Ordered: Microalbumin Level Urine U Protein/Creat Ratio 4. Lower ur (more content not included)... Normal [facility] Comment on above: Result Comment: Elec tronically Signed By: Serafin Roberson DO\.br\Date and Time Signed: 08/19/24 17:22 EDT Ambulatory Visit Summaryon 0 08-12-2024 Ambulatory Visit Summary Ambulatory Visit Summary KAYLA MONTANA :1975 Visit Date:08/12/2024 Ambulatory Visit Instructions Your Diagnosis Non-smoker Bronchitis Your Care Team Attending Physician - Juanita Strauss Primary Care Physician - Serafin Roberson DO This Is Your Medications List benzonatate (benzonatate 200 mg oral capsule) predniSONE (predniSONE 20 mg Tab) Contact prescribing physician if questions or concerns Misc Prescription (syringes) albuterol (Albuterol (Eqv-ProAir HFA) 90 mcg/inh inhalation aerosol) buPROPion (buPROPion 300 mg/24 hours ER Tab) cyanocobalamin (cyanocobalamin 1000 mcg/mL Inj) cyclobenzaprine (cyclobenzaprine 10 mg Tab) duloxetine (duloxetine 30 mg Cap-DR) elderberry fluoxetine (FLUoxetine 20 mg Cap) fluticasone nasal (Flonase 0.05 mg/inh [place]) folic acid (folic acid 1 mg Tab) gabapentin (gabapentin 600 mg Tab) hydrochlorothiazide (hydrochlorothiazide 25 mg Tab) ibuprofen (ibuprofen 800 mg Tab) meclizine (meclizine 12.5 mg Tab) metformin (metformin 500 mg Tab) montelukast (Singulair 10 mg Tab) pantoprazole (Protonix 40 mg Tab-DR) potassium chloride (potassium chloride 10 mEq Cap-ER) propranolol (propranolol 60 mg Cap-ER) Procedures Performed Epidural injection of lumbar spine using fluoroscopic guidance (12/10/2022), Injection of steroid into shoulder joint (08/14/2022), Epidural injection of lumbar spine using fluoroscopic guidance (01/29/2022), Injection of nerve root of lumbar spine using fluoroscopic guidance (11/21/2020), EGD - Esophagogastroduodenoscopy (06/25/2020), Epidural injection of lumbar spine using fluoroscopic guidance (05/16/2020), Injection of nerve root of lumbar spine using fluoroscopic guidance (02/08/2020), Injection of sacroiliac joint using fluoroscopic guidance (11/30/2019), Colonoscopy (09/29/2019), Duodenal biopsy (09/29/2019), EGD - Esophagogastroduodenoscopy (09/29/2019), Gastroesophageal junction (09/29/2019), Sigmoid colon polyp (09/29/2019), Nerve block with injection of lumbar spine using fluoroscopic guidance (08/10/2019), TPI - Trigger point injection (08/10/2019), Injection of sacroiliac joint using fluoroscopic guidance (05/12/2019), Right L4/5 Transforaminal Epidural Steroid Injection (11/24/2018), botox injections for migraine (04/08/2018), Injection of sacroiliac joint using fluoroscopic guidance (03/10/2018), left knee injection (12/17/2017), Injection of sacroiliac joint using fluoroscopic guidance (11/05/2016), Trigger point injection (11/05/2016), Injection of sacroiliac joint using fluoroscopic guidance (07/09/2016), TPI - Trigger point injection (02/07/2016), Trigger Point Injections (02/07/2016), Trochanteric bursa (04/12/2015), Trigger point injection (01/25/2015), back surgery, Tonsillectomy. Discharge Vitals Temperature (Oral) 36.9 ???C Heart Rate (Peripheral) 80 Blood Pressure 132/80 Height 165 cm Height 65 in Weight 115.3 kg Weight 254.193 lb BMI 42.35 What to do next Scheduled Follow-Up Appointments Thursday 2:40 PM EDT With: Serafin Roberson DO Where: [facility] [address] [place] [address]- Thursday 10:20 AM EDT With: Augustus MEDEL, Jeffy Galvan Where: [facility] Thursday 9:15 AM EDT With: Alyssa Young PA-C Where: [facility] You Need to Schedule the Following Appointments Follow Up with Serafin Roberson DO, RODRI, PED When: Where: [address] [place] [address] Medications What How Much When Why Instructions New benzonatate (benzonatate 200 mg oral capsule) 1 Capsules By Mouth 3 times a day Duration: 14 Days Pickup at [facility] New predniSONE (predniSONE 20 mg Tab) 2 Tablets By Mouth 2 times a day Duration: 5 Days Pickup at [facility] Unchanged albuterol (Albuterol (Eqv-ProAir HFA) 90 mcg/ inh inhalation aerosol) 2 Puffs Inhalation Every 6 hours Wheezing Contact prescribing physician if questions or concerns Unchanged buPROPion (buPROPion 300 mg/ 24 hours ER Tab) 1 Tablets By Mouth Every day ADHD (attention deficit hyperactivity disorder), inattentive type Contact prescribing physician if questions or concerns Unchanged cyanocobalamin (cyanocobalamin 1000 mcg/ mL Inj) 1 Milliliter Intramuscular Once a month B12 deficiency Also dispense 3 ml syringes 25 gauge 1 needle, quantity sufficient for injections. Contact prescribing physician if questions or concerns Unchanged cyclobenzaprine (cyclobenzaprine 10 mg Tab) 1 Tablets By Mouth 3 times a day as needed for for spasm Spasm of thoracic back muscle Contact prescribing physician if questions or concerns Unchanged duloxetine (duloxetine 30 mg Cap-DR) 1 Capsules By Mouth 2 times a day (do not crush or chew) Contact prescribing physician if questions or concerns Unchanged elderberry Contact prescribing physician if questions or concerns Unchanged f (more content not included)... Normal [facility] Family Medicine Office/Clini c Noteon 08-12-2024 Family Medicine Office/Clinic Note Family Medicine Office/Clinic Note Chief Complaint cough x 7 days - Worsening cough for one week with a history of initial flu-like symptoms HPI Staff complaints of cough Onset: 7 days Characteristics: Pt states she had fever, body aches and cough last week, other symptoms have resolved. OTC tried: none History of Present Illness - The patient is a 48-year-old female presenting with a persistent cough and respiratory symptoms. - The cough started approximately one week ago, initially accompanied by fever and body aches, which have since resolved. - The patient describes the cough as worsening and exhausting, with episodes causing difficulty in breathing. - Oxygen saturation was noted to be slightly lower than the patient's normal baseline, frequently around 95%. - The patient has a history of obesity, with a BMI of 42, and reports a return of higher blood pressure readings recently. - The patient denies using gwel-fep-oyamkcp cough medications, expressing concern about potential effects on blood pressure. - The patient is taking hydrochlorothiazide, metformin, ibuprofen, Protonix, potassium, and propranolol; however, she stopped using Afrin due to side effects. - The conversation disclosed past fluctuations in blood pressure control due to alteration of antihypertensive medications. - Recent examination revealed the presence of fluid in the ears but no infection; the patient denies sinus pressure. - The patient reported possible interactions with prescribed medications affecting blood pressure. 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 Review of Systems PHQ Score Initial Depression Screen Score: 0 SCORE - Respiratory: Reports intermittent episodes of wheezing symptoms; denies current active wheezing episodes. - HEENT: Reports fluid presence in ears; denies ear pain or sinus pressure. - Gastrointestinal: Denies constipation. Physical Exam Vitals & Measurements T: 36.9 ???C(Oral) HR: 80(Peripheral) BP: 132/80 SpO2: 95% HT: 65 in HT: 165 cm WT: 254.193 lb WT: 115.3 kg BMI: 42.35 General: alert, no acute distress, well appearing, pleasant, patient is obese here with room 3 Skin: warm, dry, intact Head: no trauma, normocephalic Neck: Trachea midline, no adenopathy, no tenderness Eye: normal conjunctiva, sclera clear, PERRLA Ear, Nose, Mouth, Throat:oral mucosa moist, no pharyngeal erythema or exudate, normal dentition, clear fluid in ear - right TM , normal left TM, uvula with slight edema/ increased vasculature Cardiovascular: regular rate and rhythm, normal peripheral perfusion, no edema, Respiratory: Lungs CTA, respirations non labored, no wheezing, coarse cough noted, slight end expiratory wheeze that cleared with cough Chest wall: no deformity, non tender Extremities: no deformity, no trauma Neurological: oriented x 4, LOC appropriate for age, Cranial nerves 2-12 intact, motor strength equal and normal bilaterally, sensation equal & normal bilaterally, speech normal Psychiatric: cooperative, affect appropriate for age, normal judgement, normal psychiatric thoughts Assessment/Plan 1. Non-smoker (Z78.9: Other specified health status) - Acknowledge former smoking history and its contribution to respiratory health. - Continue to support cessation and monitor for any long-term effects. 2. Bronchitis (J40: Bronchitis, not specified as acute or chronic) - Initiate a short course of prednisone 20 mg twice daily x 5 days to improve respiratory function and alleviate cough. - Prescribe benzonatate 200 mg as needed to help control the cough. - Recommend hydration and rest for recovery. - Educate on potential blood pressure elevation as a side effect of prednisone and monitor for hypertension. If cough persist or worsens or fever develops past Thursday or Thursday next week please call me for possible antibiotic need Orders: benzonatate, 200 mg = 1 cap(s), Oral, TID, X 14 day(s), # 42 cap(s), Refills(s) 0, Pharmacy: [id number], 165, cm, 08/12/24 9:30:00 EDT, Height/Length Dosing, 115.3, kg, 08/12/24 9:30:00 EDT, Weight Dosing predniSONE, 40 mg = 2 tab(s), Oral, BID, # 20 tab(s), Refills(s) 0, Pharmacy: [facility], 165, cm, 08/12/24 9:30:00 EDT, Height/Length Dosing, 115.3, kg, 08/12/24 9:30:00 EDT, Weight Dosing Essential Hypertension - Continue monitoring blood pressure. - Discuss the potential impact of medications on blood pressure. - Plan to follow up with primary care for ongoing management. Obesity - Discuss the role of weight management in controlling blood pressure and respiratory symptoms. - Encourage lifestyle modifications including diet and physical activity. - Begin prednisone as prescribed to ease breathing and reduce inflammation. - Take benzonatate to manage coughing, particularly at night. - Rest and avoid activities that exacerbate cough; consider taking additional (more content not included)... Normal [facility] Comment on above: Result Comment: Elec tronically Signed By: Juanita Strauss\.br\Date and Time Signed: 08/12/24 10:24 EDT Provider Letteron 08-12-2024 Provider Letter Provider Letter [address] [address] August 12, 2024 KAYLA ORGAN [address] [place] [address] : 1975 To Whom It May Concern, Please excuse above patient from work. Date of Illness: From: _ 08/12/24 To: _08/14/24 May Return to Work On: 08/15/24 Restrictions: _ Comments: _ Sincerely, Juanita Oneill [address], [place] [address] [facility] Ambulatory Visit Summaryon 0 07-08-2024 Ambulatory Visit Summary Ambulatory Visit Summary KAYLA MONTANA :1975 Visit Date:07/08/2024 Ambulatory Visit Instructions Your Diagnosis ADHD (attention deficit hyperactivity disorder), inattentive type Generalized anxiety disorder Mild recurrent major depression Your Care Team Attending Physician - Serafin Roberson DO Primary Care Physician - Serafin Roberson DO This Is Your Medications List buPROPion (buPROPion 300 mg/24 hours ER Tab) Contact prescribing physician if questions or concerns Misc Prescription (syringes) albuterol (Albuterol (Eqv-ProAir HFA) 90 mcg/inh inhalation aerosol) cyanocobalamin (cyanocobalamin 1000 mcg/mL Inj) cyclobenzaprine (cyclobenzaprine 10 mg Tab) duloxetine (duloxetine 30 mg Cap-DR) elderberry fluoxetine (FLUoxetine 20 mg Cap) fluticasone nasal (Flonase 0.05 mg/inh [place]) folic acid (folic acid 1 mg Tab) gabapentin (gabapentin 600 mg Tab) hydrochlorothiazide (hydrochlorothiazide 25 mg Tab) ibuprofen (ibuprofen 800 mg Tab) meclizine (meclizine 12.5 mg Tab) metformin (metformin 500 mg Tab) montelukast (Singulair 10 mg Tab) pantoprazole (Protonix 40 mg Tab-DR) potassium chloride (potassium chloride 10 mEq Cap-ER) propranolol (propranolol 60 mg Cap-ER) Procedures Performed Epidural injection of lumbar spine using fluoroscopic guidance (12/10/2022), Injection of steroid into shoulder joint (08/14/2022), Epidural injection of lumbar spine using fluoroscopic guidance (01/29/2022), Injection of nerve root of lumbar spine using fluoroscopic guidance (11/21/2020), EGD - Esophagogastroduodenoscopy (06/25/2020), Epidural injection of lumbar spine using fluoroscopic guidance (05/16/2020), Injection of nerve root of lumbar spine using fluoroscopic guidance (02/08/2020), Injection of sacroiliac joint using fluoroscopic guidance (11/30/2019), Colonoscopy (09/29/2019), Duodenal biopsy (09/29/2019), EGD - Esophagogastroduodenoscopy (09/29/2019), Gastroesophageal junction (09/29/2019), Sigmoid colon polyp (09/29/2019), Nerve block with injection of lumbar spine using fluoroscopic guidance (08/10/2019), TPI - Trigger point injection (08/10/2019), Injection of sacroiliac joint using fluoroscopic guidance (05/12/2019), Right L4/5 Transforaminal Epidural Steroid Injection (11/24/2018), botox injections for migraine (04/08/2018), Injection of sacroiliac joint using fluoroscopic guidance (03/10/2018), left knee injection (12/17/2017), Injection of sacroiliac joint using fluoroscopic guidance (11/05/2016), Trigger point injection (11/05/2016), Injection of sacroiliac joint using fluoroscopic guidance (07/09/2016), TPI - Trigger point injection (02/07/2016), Trigger Point Injections (02/07/2016), Trochanteric bursa (04/12/2015), Trigger point injection (01/25/2015), back surgery, Tonsillectomy. What to do next Scheduled Follow-Up Appointments Thursday 8:30 AM EDT With: Alyssa Young PA-C Where: [facility] Thursday 11:20 AM EDT With: Augustus MEDEL, Jeffy Galvan Where: [facility] You Need to Schedule the Following Appointments Follow Up with Da MITTAL, RODRI Schmidt, PED When: Within 3 months Comments: 20 min slot To go instructions: Increase bupropion to 300mg We adjusted your med list to show that you're taking 20mg of prozac ------ *When you see providers outside of [facility], please request that they send office visit notes every time you're seen there - this helps us take better care of you Screening guidelines: Colon cancer screening starts at age 45 for most people; cologuard every three years or colonoscopy every ten years (for average risk patients) Breast cancer screening; reasonable to consider screening between 40-49; every woman age 50-74 should undergo screening mammogram every 1-2 years Dental exams and cleanings every 6 months is recommended - oral health is a predictor of your future Smokers who have averaged a pack a day for over twenty years should have annual low dose Chest CT to screen for lung cancer starting at age 50 Follow up 3 months Where: [address] [place] [address] [phone] You Need to Complete the Following MA Mamm Screen w/CAD if perf and 3D Pablo, 07/08/24, Routine, Order for Future Visit, Transport Mode: Ambulatory, Reason: Screening, No, Screening mammogram for breast cancer, pp_set_radiology_subspecialt y [facility] Medications What How Much When Why Instructions Changed buPROPion (buPROPion 300 mg/ 24 hours ER Tab) 1 Tablets By Mouth Every day ADHD (attention deficit hyperactivity disorder), inattentive type Pickup at [facility] Unchanged albuterol (Albuterol (Eqv-ProAir HFA) 90 mcg/ inh inhalation aerosol) 2 Puffs Inhalation Every 6 hours Wheezing Contact prescribing physician if questions or concerns Unchanged cyanocobalamin (cyanocobalamin 1000 mcg/ mL Inj) 1 Milliliter Intramuscular Once a month B12 deficiency Also dispense 3 ml (more content not included)... Normal [facility] Family Medicine Video Visit - Telehealthon 07-08-2024 Family Medicine Video Visit - Telehealth Family Medicine Video Visit - Telehealth HPI Staff Patient here for 6 week F/U ADHD MARK 06/03/24 Labs 03/31/24 Patient states she thinks the Wellbutrin working pretty good. She states she is remembering what she needs to get done, improvement. Would like her kidney function tested. ADHD followup: Sleeping well: Yes, 6-8 hours Blood pressure:Reviewed, _ Concerns/complaints: None Controlled substance: NO. Bupropion 150mg Urine Drug Screen done:_ Medication Agreement updated: _ History of Present Illness 48 Years old Female here for 6week fu ADHD, OBI, med check- HD HPI staff / Chief Complaint confirmed with the patient Social: Spouse: Vinnie - since 1995 Daughter and 2 grandchildren live in the house with them. Stress at home - 1 child (who lives in [place]) not speaking to her. That child's spouse remains in contact with the patient and her . 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 Pets: 1 cat Smoker: quit 4 years ago Alcohol: None Drugs: Marijuana vape - daily Screening: Colon Cancer screenin - WITH TEN YEAR F/U; this patient does NOT have family history of colon cancer Breast cancer screening: OVERDUE; this patient does have a family history of breast cancer -- GRANDMOTHER Pap smear: OVERDUE Hep C screen since age 20: _ HIV screen since age 20: _ Diabetes/ prediabetes: A1c: Hgb A1C %: 6.1 % High (08/14/22 09:51:00) Hgb A1c POC: 6 % (08/04/22 13:30:00) Smokers/ former smokers: Low dose lung CT: QUIT 4-5 years ago; 20+ pack year hx *will need screening via LDCT until age 56, starting at age 50 List of Providers: Previous PCP: Dr. Andreas Eckert Pain Management - Rupesh Gandara / Alyssa Young Oncology / Hematology - Daja Marion SYRUP BLENDER - Dr. Perkins Psych - Dr. Polly Schafefr Urology - unsure of name - has prolapsed bladder for the past 6 years, needs surgery to fix but must lose weight before the surgery To do list: read Driven to Distraction *mammogram HPI staff / Chief Complaint confirmed with the patient Interval history: _ my says that I'm nicer on it i realized that I'm not forgetting nearly as much as I used to Impending sense of doom is no longer occuring nearly as much taking in the evening and it seems to help with sleep ever since I quit smoking cigarettes, it felt like there was a hole in my life.... and now that hole feels filled felt a little scattered when stressed about her daughter being sick at college so many things bothered me and didn't make sense patient reports pain management suggested adding a third gabapentin in the morning to help with pain has been doing well on a slightly lower version of prozac (someone else manages this medicine) (anything tagged from the patients medical record will be at the bottom of this section) LABS Cr/eGFR: eGFR: 80 mL/min/1.73 m2 (03/31/24 12:38:00) Creatinine: 0.9 mg/dL (03/31/24 12:38:00) A1c: Hgb A1C %: 6.1 % High (08/14/22 09:51:00) Hgb A1c POC: 6 % (08/04/22 13:30:00) LDL: LDL Direct: 189 mg/dL High (08/14/22 09:51:00) Lipids: Chol: 256 mg/dL High (08/14/22 09:51:00) HDL: 59 mg/dL (08/14/22 09:51:00) LDL Direct: 189 mg/dL High (08/14/22 09:51:00) Tri mg/dL (08/14/22 09:51:00) VLDL: 28 mg/dL (08/14/22 09:51:00) INR: INR: 1 (10/24/22 09:59:00) Future Appointments [facility] [place] Appt. Date: 08/08/2024 8:30 AM Scheduled Provider: Alyssa Young PA-C [address] [place], [address] [facility] Appt. Date: 08/08/2024 11:20 AM Scheduled Provider: MD Augustus, Jeffy Galvan [facility] [address] [place], [address] Phone: [phone] Fax: [phone] From last note: Physical Exam PHYSICAL EXAM Constitutional: Vital signs reviewed; KAYLA MONTANA is well nourished, no acute distress Head: Atraumatic, normocephalic Eye: EOMI, normal conjunctiva PSYCH: great mood, pleasant *video visit Assessment/Plan 1. ADHD (attention deficit hyperactivity disorder), inattentive type (F90.0: Attention-deficit hyperactivity disorder, predominantly inattentive type) Impression: Chronic Well controlled ADHD On Bupropion - significant improvement Coping is appropriate *she is very pleased The patient describes NO side effects Plan: Continue Bupropion - will increase to 300mg Discussed the rationale for reviewing Driven to Distraction in the future or reading one of Dr. Mckinney's other books Emphasized again that long-term treatment plan includes cognitive behavioral therapy specific for ADHD f/u 3 months Ordered: buPROPion, 300 mg = 1 tab(s), Oral, Daily, # 30 tab(s), Refills(s) 11, Pharmacy: [facility] (more content not included)... Normal [facility] Comment on above: Result Comment: Elec tronically Signed By: Serafin Roberson DO\Date and Time Signed: 07/08/24 17:01 EST Family Medicine Office/Clini c Noteon 06-04-2024 Family Medicine Office/Clinic Note Family Medicine Office/Clinic Note Chief Complaint Acute right ear and bladder issue HPI Staff Patient here for Acute visit right ear pain and urination issue. MARK 05/27/24 Labs 03/31/24 Feels like fluid in right ear, pain down into collar bone Urination pressure , pains in back though History of Present Illness The patient is a 48 year old white female who presents for an acute visit. Social: Spouse: Vinnie - since 1995 Daughter and 2 grandchildren live in the house with them. Stress at home - 1 child (who lives in [place]) not speaking to her. That child's spouse remains in contact with the patient and her . 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 Pets: 1 cat Smoker: quit 4 years ago Alcohol: None Drugs: Marijuana vape - daily Screening: Colon Cancer screenin - WITH TEN YEAR F/U; this patient does NOT have family history of colon cancer Breast cancer screening: OVERDUE; this patient does have a family history of breast cancer -- GRANDMOTHER Pap smear: OVERDUE Hep C screen since age 20: _ HIV screen since age 18: _ Diabetes/ prediabetes: A1c: Hgb A1C %: 6.1 % High (08/14/22 09:51:00) Hgb A1c POC: 6 % (08/04/22 13:30:00) Smokers/ former smokers: Low dose lung CT: QUIT 4-5 years ago; 20+ pack year hx *will need screening via LDCT until age 56, starting at age 50 List of Providers: Previous PCP: Dr. Andreas Eckert Pain Management - Rupesh Gandara / Alyssa Young Oncology / Hematology - Daja Marion SYRUP BLENDER - Dr. Perkins Psych - Dr. Polly Schaffer Urology - unsure of name - has prolapsed bladder for the past 6 years, needs surgery to fix but must lose weight before the surgery To do list: read Driven to Distraction Interval hx: She reports having urinary urgency for 1 week, lower abdominal pain and low back pain. She has a PMHx of a prolapsed bladder. UDS in office showed trace blood. The patient's menstrual cycle ended 05/31/24. She reports bilateral ear pain, the right worst than the left. Right sided pain down neck. She reports a discharge but unsure if it was wax or not. She reports seeing an ENT 3 years ago and was told she has a dysfunctional eustachian tube and never followed up. She reports vertigo for the past 2-3 weeks. The patient reports she has been out of her Singular X4 months, out of her Propranolol X3 months and just ran out of her Flexeril and hydrochlorothiazide. Review of Systems 13 point ROS negative except for HPI Physical Exam Vitals & Measurements HR: 96(Peripheral) BP: 132/88 SpO2: 97% HT: 65 in HT: 165 cm WT: 118.7 kg WT: 261.688 lb BMI: 43.6 General: Well developed, well nourished, in no acute distress Eyes: not assessed Ears: Erythema externa right ear canal Nose: not addressed Mouth: not assessed Neck: not assessed Lungs: Normal respiratory effort and clear to auscultation Cardio: Regular rate and rhythm Abdomen: Soft, non-distended, non-tender Musculoskeletal: not assessed Extremity: not assessed Neurologic: Grossly normal Skin: warm and dry Mental Status: Alert and oriented x3. Normal mood and affect Assessment/Plan 1. Urinary symptom or sign, (R39.9: Unspecified symptoms and signs involving the genitourinary system)Lower urinary tract symptoms (LUTS) Acute New to me Unclear etiology I wonder if dehydration plays a role here Patient denies fever or chills yes - dysuria yes - increased frequency of urination *In diabetics, blood sugar spilled into urine could also play a role Plan: yes - positive for nitrites today yes - positive for leuks Send for culture Allergic to sulfa drugs *will await culture Patient has been educated on the guidelines regarding treating asymptomatic bacteriuria; patient expresses understanding Follow up PRN If develops symptoms of sepsis or systemic infection, call our office right away or go to the ED 2. Ear pain (H92.09: Otalgia, unspecified ear) see #3 3. Otitis externa (H60.90: Unspecified otitis externa, unspecified ear) Acute New to me Evidence of excoriation in the right ear canal Discussed how qtips and digital manipulation play a role in this Avoid this Consider daily alcohol if concerned with water / cleansing Begin ciprodex f/u PRN 4. Allergic rhinitis due to pollen (J30.1: Allergic rhinitis due to pollen) Chronic off singulair resume singulair 5. HTN, (I10: Essential (primary) hypertension)Hypertension Chronic Sub-optimal control off meds refills submitted Continue hydrochlorothiazide, propranolol Adult BMI 40.0-44.9 kg/sq m (Z68.41: Body mass index [BMI] 40.0-44.9, adult) Palpitations (R00.2: Palpitations) Spasm of thoracic back muscle (M62.830: Muscle spasm of back) Acute on c (more content not included)... Normal [facility] Comment on above: Result Comment: Elec tronically Signed By: Serafin Roberson DO.newton\Date and Time Signed: 06/04/24 16:41 EST\.br\Electronically Co-Signed By: Lilia Santos [facility] Student, Corina William.newton\Date and Time Co-Signed: 06/03/24 14:42 EST Ambulatory Visit Summaryon 0 06-03-2024 Ambulatory Visit Summary Ambulatory Visit Summary KAYLA MONTANA :1975 Visit Date:06/03/2024 Ambulatory Visit Instructions Your Diagnosis Urinary symptom or sign, Lower urinary tract symptoms (LUTS) Ear pain Otitis externa Allergic rhinitis due to pollen HTN, Hypertension Adult BMI 40.0-44.9 kg/sq m Palpitations Spasm of thoracic back muscle Your Care Team Attending Physician - Serafin Roberson DO Primary Care Physician - Serafin Roberson DO This Is Your Medications List ciprofloxacin-dexamethasone otic (Ciprodex 0.3%-0.1% Susp-Otic) cyclobenzaprine (cyclobenzaprine 10 mg Tab) hydrochlorothiazide (hydrochlorothiazide 25 mg Tab) montelukast (Singulair 10 mg Tab) propranolol (propranolol 60 mg Cap-ER) Contact prescribing physician if questions or concerns Misc Prescription (syringes) albuterol (Albuterol (Eqv-ProAir HFA) 90 mcg/inh inhalation aerosol) buPROPion (buPROPion 150 mg/24 hours XL Tab) cyanocobalamin (cyanocobalamin 1000 mcg/mL Inj) duloxetine (duloxetine 30 mg Cap-DR) elderberry fluoxetine (FLUoxetine 20 mg Cap) fluticasone nasal (Flonase 0.05 mg/inh [place]) folic acid (folic acid 1 mg Tab) gabapentin (gabapentin 600 mg Tab) ibuprofen (ibuprofen 800 mg Tab) meclizine (meclizine 12.5 mg Tab) metformin (metformin 500 mg Tab) pantoprazole (Protonix 40 mg Tab-DR) potassium chloride (potassium chloride 10 mEq Cap-ER) Procedures Performed Epidural injection of lumbar spine using fluoroscopic guidance (12/10/2022), Injection of steroid into shoulder joint (08/14/2022), Epidural injection of lumbar spine using fluoroscopic guidance (01/29/2022), Injection of nerve root of lumbar spine using fluoroscopic guidance (11/21/2020), EGD - Esophagogastroduodenoscopy (06/25/2020), Epidural injection of lumbar spine using fluoroscopic guidance (05/16/2020), Injection of nerve root of lumbar spine using fluoroscopic guidance (02/08/2020), Injection of sacroiliac joint using fluoroscopic guidance (11/30/2019), Colonoscopy (09/29/2019), Duodenal biopsy (09/29/2019), EGD - Esophagogastroduodenoscopy (09/29/2019), Gastroesophageal junction (09/29/2019), Sigmoid colon polyp (09/29/2019), Nerve block with injection of lumbar spine using fluoroscopic guidance (08/10/2019), TPI - Trigger point injection (08/10/2019), Injection of sacroiliac joint using fluoroscopic guidance (05/12/2019), Right L4/5 Transforaminal Epidural Steroid Injection (11/24/2018), botox injections for migraine (04/08/2018), Injection of sacroiliac joint using fluoroscopic guidance (03/10/2018), left knee injection (12/17/2017), Injection of sacroiliac joint using fluoroscopic guidance (11/05/2016), Trigger point injection (11/05/2016), Injection of sacroiliac joint using fluoroscopic guidance (07/09/2016), TPI - Trigger point injection (02/07/2016), Trigger Point Injections (02/07/2016), Trochanteric bursa (04/12/2015), Trigger point injection (01/25/2015), back surgery, Tonsillectomy. Discharge Vitals Heart Rate (Peripheral) 96 Blood Pressure 132/88 Height 65 in Height 165 cm Weight 261.688 lb Weight 118.7 kg BMI 43.6 What to do next Scheduled Follow-Up Appointments Thursday 8:30 AM EST With: Rupesh Gandara DO Where: [facility] Thursday 9:40 AM EST With: Daja Ho Where: Oncology Thursday 9:20 AM EST With: Serafin Roberson DO Where: [place] [address] [place] [address]- Medications What How Much When Why Instructions New ciprofloxacin-dexamethasone otic (Ciprodex 0.3%-0.1% Susp-Otic) 4 Drops Otic 2 times a day Otitis externa Ear pain Duration: 7 Days Refills: 1 Pickup at [facility] Unchanged cyclobenzaprine (cyclobenzaprine 10 mg Tab) 1 Tablets By Mouth 3 times a day as needed for for spasm Spasm of thoracic back muscle Pickup at [facility] #37 Unchanged hydrochlorothiazide (hydrochlorothiazide 25 mg Tab) 1 Tablets By Mouth Once a day (in the morning) [facility] Unchanged montelukast (Singulair 10 mg Tab) 1 Tablets By Mouth Once a day (in the evening) Allergic rhinitis due to pollen [facility] Unchanged propranolol (propranolol 60 mg Cap-ER) 1 Capsules By Mouth Every day Palpitations HTN Pickup at [facility] #37 Unchanged albuterol (Albuterol (Eqv-ProAir HFA) 90 mcg/ inh inhalation aerosol) 2 Puffs Inhalation Every 6 hours Wheezing Contact prescribing physician if questions or concerns Unchanged buPROPion (buPROPion 150 mg/ 24 hours XL Tab) 1 Tablets By Mouth Every 24 hours ADHD (attention deficit hyperactivity disorder), inattentive type Generalized anxiety disorder Mild recurrent major depression Contact prescribing physician if questions or concerns Unchanged cyanocobalamin (cyanocobalamin 1000 mcg/ mL Inj) 1 Milliliter Intramuscular Once a mon (more content not included)... Normal [facility] Provider Letteron 06-03-2024 Provider Letter Provider Letter June 03, 2024 KAYLA MONTANA [address] [place] [id number] : 1975 To Whom It May Concern, Please excuse above patient from work. Date of Illness: From: 06/03/24 May Return to Work On: 06/03/24 Restrictions: none Comments: none Sincerely, Family Medicine [address] [facility] [place] [address] [facility] Ambulatory Visit Summaryon 0 05-27-2024 Ambulatory Visit Summary Ambulatory Visit Summary KAYLA MONTANA :1975 Visit Date:05/27/2024 Ambulatory Visit Instructions Your Diagnosis ADHD (attention deficit hyperactivity disorder), inattentive type Generalized anxiety disorder BMI 40.0-44.9, adult Mild recurrent major depression Morbid obesity Establishing care with new doctor, encounter for Your Care Team Attending Physician - Serafin Roberson DO Primary Care Physician - Serafin Roberson DO This Is Your Medications List buPROPion (buPROPion 150 mg/24 hours XL Tab) fluoxetine (FLUoxetine 20 mg Cap) Contact prescribing physician if questions or concerns Misc Prescription (syringes) albuterol (Albuterol (Eqv-ProAir HFA) 90 mcg/inh inhalation aerosol) cyanocobalamin (cyanocobalamin 1000 mcg/mL Inj) cyclobenzaprine (cyclobenzaprine 10 mg Tab) duloxetine (duloxetine 30 mg Cap-DR) elderberry fluticasone nasal (Flonase 0.05 mg/inh [place]) folic acid (folic acid 1 mg Tab) gabapentin (gabapentin 600 mg Tab) hydrochlorothiazide (hydrochlorothiazide 25 mg Tab) ibuprofen (ibuprofen 800 mg Tab) meclizine (meclizine 12.5 mg Tab) metformin (metformin 500 mg Tab) montelukast (Singulair 10 mg Tab) pantoprazole (Protonix 40 mg Tab-DR) potassium chloride (potassium chloride 10 mEq Cap-ER) propranolol (propranolol 60 mg Cap-ER) [Image Removed: STOP]Stop taking these medications folic acid (folic acid 1 mg Tab) Procedures Performed Epidural injection of lumbar spine using fluoroscopic guidance (12/10/2022), Injection of steroid into shoulder joint (08/14/2022), Epidural injection of lumbar spine using fluoroscopic guidance (01/29/2022), Injection of nerve root of lumbar spine using fluoroscopic guidance (11/21/2020), EGD - Esophagogastroduodenoscopy (06/25/2020), Epidural injection of lumbar spine using fluoroscopic guidance (05/16/2020), Injection of nerve root of lumbar spine using fluoroscopic guidance (02/08/2020), Injection of sacroiliac joint using fluoroscopic guidance (11/30/2019), Colonoscopy (09/29/2019), Duodenal biopsy (09/29/2019), EGD - Esophagogastroduodenoscopy (09/29/2019), Gastroesophageal junction (09/29/2019), Sigmoid colon polyp (09/29/2019), Nerve block with injection of lumbar spine using fluoroscopic guidance (08/10/2019), TPI - Trigger point injection (08/10/2019), Injection of sacroiliac joint using fluoroscopic guidance (05/12/2019), Right L4/5 Transforaminal Epidural Steroid Injection (11/24/2018), botox injections for migraine (04/08/2018), Injection of sacroiliac joint using fluoroscopic guidance (03/10/2018), left knee injection (12/17/2017), Injection of sacroiliac joint using fluoroscopic guidance (11/05/2016), Trigger point injection (11/05/2016), Injection of sacroiliac joint using fluoroscopic guidance (07/09/2016), TPI - Trigger point injection (02/07/2016), Trigger Point Injections (02/07/2016), Trochanteric bursa (04/12/2015), Trigger point injection (01/25/2015), back surgery, Tonsillectomy. Discharge Vitals Heart Rate (Peripheral) 58 Blood Pressure 134/94 Height 165 cm Height 65 in Weight 119.7 kg Weight 263.893 lb BMI 43.97 What to do next Scheduled Follow-Up Appointments Thursday 8:30 AM EST With: Rupesh Gandara DO Where: [facility] Thursday 9:40 AM EST With: Daja Ho Where: [facility] Medications What How Much When Why Instructions New buPROPion (buPROPion 150 mg/ 24 hours XL Tab) 1 Tablets By Mouth Every 24 hours ADHD (attention deficit hyperactivity disorder), inattentive type Generalized anxiety disorder Mild recurrent major depression Refills: 5 Pickup at [facility] Changed fluoxetine (FLUoxetine 20 mg Cap) 1 Capsules By Mouth Every day Generalized anxiety disorder Unchanged albuterol (Albuterol (Eqv-ProAir HFA) 90 mcg/ inh inhalation aerosol) 2 Puffs Inhalation Every 6 hours Wheezing Contact prescribing physician if questions or concerns Unchanged cyanocobalamin (cyanocobalamin 1000 mcg/ mL Inj) 1 Milliliter Intramuscular Once a month B12 deficiency Also dispense 3 ml syringes 25 gauge 1 needle, quantity sufficient for injections. Contact prescribing physician if questions or concerns Unchanged cyclobenzaprine (cyclobenzaprine 10 mg Tab) 1 Tablets By Mouth 3 times a day as needed for for spasm Contact prescribing physician if questions or concerns Unchanged duloxetine (duloxetine 30 mg Cap-DR) 1 Capsules By Mouth 2 times a day (do not crush or chew) Contact prescribing physician if questions or concerns Unchanged elderberry Contact prescribing physician if questions or concerns Unchanged fluticasone nasal (Flonase 0.05 mg/ inh [place]) 2 Sprays Nasal Inhalation Every day Congestion of nasal sinus each nostril Contact prescribing physician if questions or concerns Unchanged folic acid (folic acid 1 mg Tab) 1 Tablets By Mouth Every day Folate deficiency Contact prescribing physici (more content not included)... Normal [facility] Ambulatory Visit Summary Ambulatory Visit Summary KAYLA MONTANA :1975 Visit Date:05/27/2024 Ambulatory Visit Instructions Your Diagnosis ADHD (attention deficit hyperactivity disorder), inattentive type Generalized anxiety disorder BMI 40.0-44.9, adult Mild recurrent major depression Morbid obesity Your Care Team Attending Physician - Serafin Roberson DO Primary Care Physician - Serafin Roberson DO This Is Your Medications List buPROPion (buPROPion 150 mg/24 hours XL Tab) fluoxetine (FLUoxetine 20 mg Cap) Contact prescribing physician if questions or concerns Misc Prescription (syringes) albuterol (Albuterol (Eqv-ProAir HFA) 90 mcg/inh inhalation aerosol) cyanocobalamin (cyanocobalamin 1000 mcg/mL Inj) cyclobenzaprine (cyclobenzaprine 10 mg Tab) duloxetine (duloxetine 30 mg Cap-DR) elderberry fluticasone nasal (Flonase 0.05 mg/inh [place]) folic acid (folic acid 1 mg Tab) gabapentin (gabapentin 600 mg Tab) hydrochlorothiazide (hydrochlorothiazide 25 mg Tab) ibuprofen (ibuprofen 800 mg Tab) meclizine (meclizine 12.5 mg Tab) metformin (metformin 500 mg Tab) montelukast (Singulair 10 mg Tab) pantoprazole (Protonix 40 mg Tab-DR) potassium chloride (potassium chloride 10 mEq Cap-ER) propranolol (propranolol 60 mg Cap-ER) [Image Removed: STOP]Stop taking these medications folic acid (folic acid 1 mg Tab) Procedures Performed Epidural injection of lumbar spine using fluoroscopic guidance (12/10/2022), Injection of steroid into shoulder joint (08/14/2022), Epidural injection of lumbar spine using fluoroscopic guidance (01/29/2022), Injection of nerve root of lumbar spine using fluoroscopic guidance (11/21/2020), EGD - Esophagogastroduodenoscopy (06/25/2020), Epidural injection of lumbar spine using fluoroscopic guidance (05/16/2020), Injection of nerve root of lumbar spine using fluoroscopic guidance (02/08/2020), Injection of sacroiliac joint using fluoroscopic guidance (11/30/2019), Colonoscopy (09/29/2019), Duodenal biopsy (09/29/2019), EGD - Esophagogastroduodenoscopy (09/29/2019), Gastroesophageal junction (09/29/2019), Sigmoid colon polyp (09/29/2019), Nerve block with injection of lumbar spine using fluoroscopic guidance (08/10/2019), TPI - Trigger point injection (08/10/2019), Injection of sacroiliac joint using fluoroscopic guidance (05/12/2019), Right L4/5 Transforaminal Epidural Steroid Injection (11/24/2018), botox injections for migraine (04/08/2018), Injection of sacroiliac joint using fluoroscopic guidance (03/10/2018), left knee injection (12/17/2017), Injection of sacroiliac joint using fluoroscopic guidance (11/05/2016), Trigger point injection (11/05/2016), Injection of sacroiliac joint using fluoroscopic guidance (07/09/2016), TPI - Trigger point injection (02/07/2016), Trigger Point Injections (02/07/2016), Trochanteric bursa (04/12/2015), Trigger point injection (01/25/2015), back surgery, Tonsillectomy. Discharge Vitals Heart Rate (Peripheral) 58 Blood Pressure 134/94 Height 165 cm Height 65 in Weight 119.7 kg Weight 263.893 lb BMI 43.97 What to do next Scheduled Follow-Up Appointments Thursday 8:30 AM EST With: Rupesh Gandara DO Where: [facility] Thursday 9:40 AM EST With: Daja Ho Where: [facility] Medications What How Much When Why Instructions New buPROPion (buPROPion 150 mg/ 24 hours XL Tab) 1 Tablets By Mouth Every 24 hours ADHD (attention deficit hyperactivity disorder), inattentive type Generalized anxiety disorder Mild recurrent major depression Refills: 5 Changed fluoxetine (FLUoxetine 20 mg Cap) 1 Capsules By Mouth Every day Generalized anxiety disorder Unchanged albuterol (Albuterol (Eqv-ProAir HFA) 90 mcg/ inh inhalation aerosol) 2 Puffs Inhalation Every 6 hours Wheezing Contact prescribing physician if questions or concerns Unchanged cyanocobalamin (cyanocobalamin 1000 mcg/ mL Inj) 1 Milliliter Intramuscular Once a month B12 deficiency Also dispense 3 ml syringes 25 gauge 1 needle, quantity sufficient for injections. Contact prescribing physician if questions or concerns Unchanged cyclobenzaprine (cyclobenzaprine 10 mg Tab) 1 Tablets By Mouth 3 times a day as needed for for spasm Contact prescribing physician if questions or concerns Unchanged duloxetine (duloxetine 30 mg Cap-DR) 1 Capsules By Mouth 2 times a day (do not crush or chew) Contact prescribing physician if questions or concerns Unchanged elderberry Contact prescribing physician if questions or concerns Unchanged fluticasone nasal (Flonase 0.05 mg/ inh [place]) 2 Sprays Nasal Inhalation Every day Congestion of nasal sinus each nostril Contact prescribing physician if questions or concerns Unchanged folic acid (folic acid 1 mg Tab) 1 Tablets By Mouth Every day Folate deficiency Contact prescribing physician if questions or concerns Unchanged gabapentin (gabapentin 600 mg Tab) 1 Tablets By (more content not included)... Normal [facility] Family Medicine Office/Clini c Noteon 05-27-2024 Family Medicine Office/Clinic Note Family Medicine Office/Clinic Note Chief Complaint EST CARE HPI Staff Establish Care: History: Last provider: Tomeka Any recent labs: 03/31/24 Health Maintenance UTD: Colonoscopy: 09/29/19 Mammogram:DUE Pelvic/Pap:DUE Acute: Current issues/complaints: Patient states she would like to discuss ADHD, did buy the book but has not read it. She states GI Pains does see Gastro. Discuss current medications History of Present Illness Patient is a 48 year old white female who presents to establish care today. Social: Spouse: Vinnie - since 1995 Daughter and 2 grandchildren live in the house with them. Stress at home - 1 child (who lives in [place]) not speaking to her. That child's spouse remains in contact with the patient and her . 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 Pets: 1 cat Smoker: quit 4 years ago Alcohol: None Drugs: Marijuana vape - daily Screening: Colon Cancer screenin - WITH TEN YEAR F/U; this patient does NOT have family history of colon cancer Breast cancer screening: OVERDUE; this patient does have a family history of breast cancer -- GRANDMOTHER Pap smear: OVERDUE Hep C screen since age 20: _ HIV screen since age 20: _ Diabetes/ prediabetes: A1c: Hgb A1C %: 6.1 % High (08/14/22 09:51:00) Hgb A1c POC: 6 % (08/04/22 13:30:00) Smokers/ former smokers: Low dose lung CT: QUIT 4-5 years ago; 20+ pack year hx *will need screening via LDCT until age 56, starting at age 50 List of Providers: Previous PCP: Dr. Andreas Eckert Pain Management - Rupesh Gandara / Alyssa [facility] Oncology / Hematology - Daja Marion SYRUP BLENDER - Dr. Perkins Psych - Dr. Polly Schaffer Urology - unsure of name - has prolapsed bladder for the past 6 years, needs surgery to fix but must lose weight before the surgery To do list: read Driven to Distraction She reports her ADHD started as a child but she didn't realize what it was at the time. Has several children who are treated for ADHD She states she feels anxious all the time and has difficulty concentrating. She states she sleeps roughly 6 hours a night but has dreams and wakes up on/off, she has difficulty falling asleep. She reports she stop smoking 4 years ago and her anxiety has increased since then. Review of Systems PHQ Score Initial Depression Screen Score: 1 SCORE 13 point ROS negative except for HPI Physical Exam Vitals & Measurements HR: 58(Peripheral) BP: 134/94 SpO2: 98% HT: 65 in HT: 165 cm WT: 119.7 kg WT: 263.893 lb BMI: 43.97 General: Well developed, well nourished, in no acute distress Eyes: not assessed Ears: not assessed Nose: not addressed Mouth: not assessed Neck: not assessed Lungs: Normal respiratory effort and clear to auscultation Cardio: Regular rate and rhythm, normal S1 and S2, no murmur, no rub Abdomen: Soft, non-distended, non-tender Musculoskeletal: not assessed Extremity: not assessed Neurologic: Grossly normal Skin: warm and dry Mental Status: Alert and oriented x3. Normal mood and affect Assessment/Plan 1. ADHD (attention deficit hyperactivity disorder), inattentive type (F90.0: Attention-deficit hyperactivity disorder, predominantly inattentive type) Chronic Sub-optimal control Discussed how this can affect OBI and MDD symptoms Reviewed 7 emotions that appointment today with her This really hit home for her and her today *extensive counseling on insight, self-image, self-worth, living up to your abilities recommend Driven to Distraction Begin bupropion f/u 3 months Ordered: buPROPion, 150 mg = 1 tab(s), Oral, q24hr, # 30 tab(s), Refills(s) 5, Pharmacy: [facility], 165, cm, 05/27/24 8:56:00 EST, Height/Length Dosing, 119.7, kg, 05/27/24 8:56:00 EST, Weight Dosing 2. Generalized anxiety disorder (F41.1: Generalized anxiety disorder) Chronic Stable Room for improvement Likely complicated by #1 Ordered: buPROPion, 150 mg = 1 tab(s), Oral, q24hr, # 30 tab(s), Refills(s) 5, Pharmacy: [facility], 165, cm, 05/27/24 8:56:00 EST, Height/Length Dosing, 119.7, kg, 05/27/24 8:56:00 EST, Weight Dosing fluoxetine, 20 mg = 1 cap(s), Oral, Daily, # 30 cap(s), Refills(s) 0, other reason (Rx) 3. BMI 40.0-44.9, adult (Z68.41: Body mass index [BMI] 40.0-44.9, adult) Chronic. Sub-optimal control BMI is >40 The patient is struggling to decrease weight on their own Discussed dietary options Portion size Encouraged walking more than 5,000 steps a day Start bupropion 150 mg. Discussed the rationale for increasing to 300mg daily Rec the book State of Slim F/u 1 month. 4. Mild recurrent major depression (F33.0: Major depressive disorder, recurrent, mild) Chronic (more content not included)... Normal [facility] Comment on above: Result Comment: Elec tronically Signed By: Serafin Roberson DO\.br\Date and Time Signed: 05/27/24 16:27 EST\.br\Electronically Co-Signed By: Lilia Santos DR[employer]PAIRER Student[employer]ina\.br\Date and Time Co-Signed: 05/27/24 09:33 EST CBC w/ Auto Diffon 4 Basophils/100 WBC (Bld) 1.3 % Normal 0.0-2.0 [facility] Comment on above: Performed By: #### 2 [id number] #### [facility] [address] [place] [address] Basophils/Leukocytes Auto (Bld) [Pure # fraction] 0.1 E9/L Normal 0.0-0.2 [facility] Comment on above: Performed By: #### 2 [id number] #### [facility] [address] [place] [address] Eosinophils (Bld) [#/Vol] 0.1 E9/L Normal 0.0-0.5 [facility] Comment on above: Performed By: #### 2 [id number] #### [facility] [address] [place] [address] Eosinophils/100 WBC (Bld) 1.8 % Normal 0.0-8.0 [facility] Comment on above: Performed By: #### 2 [id number] #### [facility] [address] [place] [address] Erythrocyte distribution width (RBC) [Ratio] 14.0 % Normal 10.9-14.2 [facility] Comment on above: Performed By: #### 2 [id number] #### [facility] [address] [place] [address] Hematocrit (Bld) [Volume fraction] 41.0 % Normal 34.0-46.0 [facility] Comment on above: Performed By: #### 2 [id number] #### [facility] [address] [place] [address] [place] [address] Hemoglobin (Bld) [Mass/Vol] 13.9 g/dL Normal 12.0-16.0 [facility] Comment on above: Performed By: #### 2 [id number] #### [facility] [address] [place] [address] Lymphocytes (Bld) [#/Vol] 1.6 E9/L Normal 1.0-4.0 [facility] Comment on above: Performed By: #### 2 [id number] #### [facility] [address] [place] [address] Lymphocytes/100 WBC (Bld) 25.9 % Normal 14.0-50.0 [facility] Comment on above: Performed By: #### 2 [id number] #### [facility] [address] [place] [address] MCH (RBC) [Entitic mass] 29.8 pg Normal 27.0-34.0 [facility] Comment on above: Performed By: #### 2 [id number] #### [facility] [address] [place] [address] MCHC (RBC) [Mass/Vol] 33.9 g/dL Normal 31.4-36.0 [facility] Comment on above: Performed By: #### 2 [id number] #### [facility] [address] [place] [address] MCV (RBC) [Entitic vol] 87.9 fL Normal 80.0-100.0 [facility] Comment on above: Performed By: #### 2 [id number] #### [facility] [address] [place] [address] Monocytes (Bld) [#/Vol] 0.3 E9/L Normal 0.2-1.0 [facility] Comment on above: Performed By: #### 2 [id number] #### [facility] [address] [place] [address] Neutrophils (Bld) [#/Vol] 4.1 E9/L Normal 2.0-7.5 [facility] Comment on above: Performed By: #### 2 [id number] #### [facility] [address] [place] [address] Neutrophils/100 WBC (Bld) 65.6 % Normal 36.0-75.0 [facility] Comment on above: Performed By: #### 2 [id number] #### [facility] [address] [place] [address] Platelet 304.0 E9/L Normal 150.0-500. 0 [facility] Comment on above: Performed By: #### 2 [id number] #### [facility] [address] [place] [address] Platelet mean volume (Bld) [Entitic vol] 9.2 fL Normal 6.4-10.8 [facility] Comment on above: Performed By: #### 2 [id number] #### [facility] [address] [place] [address] RBC (Bld) [#/Vol] 4.7 E12/L Normal 4.3-5.9 [facility] Comment on above: Performed By: #### 2 [id number] #### [facility] [address] [place] [address] WBC corrected for nucl RBC Auto (Bld) [#/Vol] 6.2 E9/L Normal 4.0-11.0 [facility] Comment on above: Performed By: #### 2 [id number] #### [facility] [address] [place] [address] CHEMISTRYOrdered By: SYSTEM SYSTEM on 03-31-2024 Albumin [Mass/Vol] 4.5 g/dL Normal 3.3 - 5.0 gm/dL [facility] Albumin/Globulin [Mass ratio] 1.5 {ratio} Normal 1.1 - 2.2 [facility] ALP [Catalytic activity/Vol] 42 [iU]/d Normal 21 - 98 Int._Unit/ L [facility] ALT No additional P-5'-P [Catalytic activity/Vol] 17 [iU]/d Normal 6 - 46 Int._Unit/ L [facility] Anion gap [Moles/Vol] 13 mmol/L Normal 6 - 16 mEq/L [facility] AST [Catalytic activity/Vol] 19 [iU]/d Normal 5 - 43 Int._Unit/ L [facility] Bilirubin [Mass/Vol] 0.5 mg/dL Normal 0.0 - 1 .1 mg/dL [facility] Calcium [Mass/Vol] 9.6 mg/dL Normal 8.9 - 11. 1 mg/dL [facility] Chloride [Moles/Vol] 101 mmol/L Normal 101 - 1 11 mmol/L [facility] CO2 [Moles/Vol] 26 mmol/L Normal 21 - 31 mmol/L [facility] Creatinine [Mass/Vol] 0.9 mg/dL Normal 0.5 - 1.3 mg/dL [facility] eGFR 80 mL/min/1.73 m2 Normal >=59mL/min /1.73 m2 [facility] Ferritin [Mass/Vol] 186 ng/mL Normal 11 - 307 ng/mL [facility] Globulin (S) [Mass/Vol] 3.0 g/dL Normal 1.4 - 4.0 gm/dL [facility] Glucose [Mass/Vol] 92 mg/dL Normal 55 - 199 mg/dL [facility] Iron [Mass/Vol] 57 ug/dL Normal 35 - 153 mcg/dL [facility] Iron binding capacity [Mass/Vol] 343 ug/dL Normal 250 - 400 mcg/dL [facility] Iron saturation [Mass fraction] 17 % Low 20 - 50 % [facility] Potassium [Moles/Vol] 3.6 mmol/L Normal 3.5 - 5.3 mmol/L [facility] Protein [Mass/Vol] 7.5 g/dL Normal 6.0 - 7.8 gm/dL [facility] Sodium [Moles/Vol] 136 mmol/L Normal 135 - 145 mmol/L [facility] Transferrin [Mass/Vol] 245 mg/dL Normal 200 - 370 mg/dL [facility] Urea nitrogen [Mass/Vol] 12 mg/dL Normal 5 - 21 mg/dL [facility] Urea nitrogen/Creatinine [Mass ratio] 13 mg/mg Normal 10 - 20 [facility] CMPon 03-31-2024 Albumin [Mass/Vol] 4.5 g/dL Normal 3.3-5.0 [facility] Comment on above: Performed By: #### 2 [id number] #### [facility] [address] [place] [address] Albumin/Globulin (S) [Mass conc ratio] 1.5 Normal 1.1-2.2 [facility] Comment on above: Performed By: #### 2 [id number] #### [facility] [address] [place] [address] ALP [Catalytic activity/Vol] 42 Int._Unit/L Normal 21-98 [facility] Comment on above: Performed By: #### 2 [id number] #### [facility] [address] [place] [address] ALT No additional P-5'-P [Catalytic activity/Vol] 17 Int._Unit/L Normal 6-46 [facility] Comment on above: Performed By: #### 2 [id number] #### [facility] [address] [place] [address] Anion gap [Moles/Vol] 13 mmol/L Normal 6-16 [facility] Comment on above: Performed By: #### 2 [id number] #### [facility] [address] [place] [address] AST [Catalytic activity/Vol] 19 Int._Unit/L Normal 5-43 [facility] Comment on above: Performed By: #### 2 [id number] #### [facility] [address] [place] [address] Bilirubin [Mass/Vol] 0.5 mg/dL Normal 0.0-1.1 [facility] Comment on above: Performed By: #### 2 [id number] #### [facility] [address] [place] [address] Calcium [Mass/Vol] 9.6 mg/dL Normal 8.9-11.1 [facility] Comment on above: Performed By: #### 2 [id number] #### [facility] [address] [place] [address] Chloride [Moles/Vol] 101 mmol/L Normal 101-111 [facility] Comment on above: Performed By: #### 2 [id number] #### [facility] [address] [place] [address] CO2 [Moles/Vol] 26 mmol/L Normal 21-31 [facility] Comment on above: Performed By: #### 2 [id number] #### [facility] [address] [place] [address] Creatinine [Mass/Vol] 0.9 mg/dL Normal 0.5-1.3 [facility] Comment on above: Performed By: #### 2 [id number] #### [facility] [address] [place] [address] Globulin (S) [Mass/Vol] 3.0 g/dL Normal 1.4-4.0 [facility] Comment on above: Performed By: #### 2 [id number] #### [facility] [address] [place] [address] Glucose [Mass/Vol] 92 mg/dL Normal 55-199 [facility] Comment on above: Performed By: #### 2 139842 #### [facility] [address] [place] [address] Potassium [Moles/Vol] 3.6 mmol/L Normal 3.5-5.3 [facility] Comment on above: Performed By: #### 2 [id number] #### [facility] [address] [place] [address] Protein [Mass/Vol] 7.5 g/dL Normal 6.0-7.8 [facility] Comment on above: Performed By: #### 2 [id number] #### [facility] [address] [place] [address] Sodium [Moles/Vol] 136 mmol/L Normal 135-145 [facility] Comment on above: Performed By: #### 2 [id number] #### [facility] [address] [place] [address] Urea nitrogen [Mass/Vol] 12 mg/dL Normal 5-21 [facility] Comment on above: Performed By: #### 2 [id number] #### [facility] [address] [place] [address] Urea nitrogen/Creatinine [Mass ratio] 13 No Units Normal 10-20 [facility] Comment on above: Performed By: #### 2 [id number] #### [facility] [address] [place] [address] Ferritinon 03-31-2024 Ferritin [Mass/Vol] 186 ng/mL Normal 11-307 [facility] Comment on above: Performed By: #### 2 [id number] ####[facility] [address] [place] [address] HEMATOLOGYOrdered By: SYSTEM SYSTEM on 03-31-2024 Basophils/100 WBC (Bld) 1.3 % Normal 0.0 - 2.0 % [facility] Basophils/Leukocytes Auto (Bld) [Pure # fraction] 0.1 E9/L Normal 0.0 - 0.2 E9/L [facility] Eosinophils (Bld) [#/Vol] 0.1 E9/L Normal 0.0 - 0.5 E9/L [facility] Eosinophils/100 WBC (Bld) 1.8 % Normal 0.0 - 8.0 % [facility] Erythrocyte distribution width (RBC) [Ratio] 14.0 % Normal 10.9 - 14.2 % [facility] Hematocrit (Bld) [Volume fraction] 41.0 % Normal 34.0 - 46.0 % [facility] Hemoglobin (Bld) [Mass/Vol] 13.9 g/dL Normal 12.0 - 16.0 gm/dL [facility] Lymphocytes (Bld) [#/Vol] 1.6 E9/L Normal 1.0 - 4.0 E9/L [facility] Lymphocytes/100 WBC (Bld) 25.9 % Normal 14.0 - 50.0 % [facility] MCH (RBC) [Entitic mass] 29.8 pg Normal 27.0 - 34.0 pg [facility] MCHC (RBC) [Mass/Vol] 33.9 g/dL Normal 31.4 - 36.0 gm/dL [facility] MCV (RBC) [Entitic vol] 87.9 fL Normal 80.0 - 100.0 fL [facility] Monocytes (Bld) [#/Vol] 0.3 E9/L Normal 0.2 - 1.0 E9/L [facility] Monocytes/100 WBC (Bld) 5.4 % Normal 4.0 - 14.0 % [facility] Neutrophils (Bld) [#/Vol] 4.1 E9/L Normal 2.0 - 7.5 E9/L [facility] Neutrophils/100 WBC (Bld) 65.6 % Normal 36.0 - 75.0 % [facility] Platelet 304.0 E9/L Normal 150.0 - 500.0 E9/L [facility] Platelet mean volume (Bld) [Entitic vol] 9.2 fL Normal 6.4 - 10.8 fL [facility] RBC (Bld) [#/Vol] 4.7 E12/L Normal 4.3 - 5.9 E12/L [facility] WBC corrected for nucl RBC Auto (Bld) [#/Vol] 6.2 E9/L Normal 4.0 - 11.0 E9/L [facility] Ironon 03-31-2024 Iron [Mass/Vol] 57 microgram/dL Normal 35-153 [facility] Comment on above: Performed By: #### 2 [id number] #### [facility] [address] [place] [address] Iron Saturationon 03-31-2024 Iron binding capacity [Mass/Vol] 343 microgram/dL Normal 250-400 [facility] Comment on above: Performed By: #### 2 [id number] #### [facility] [address] [place] [address] Iron saturation [Mass fraction] 17 % Low 20-50 [facility] Comment on above: Performed By: #### 2 [id number] #### [facility] [address] [place] [address] Transferrinon 03-31-2024 Transferrin [Mass/Vol] 245 mg/dL Normal 200-370 [facility] Comment on above: Performed By: #### 2 [id number] #### [facility] [address] [place] [address] eGFRon 03-31-2024 eGFR 80 mL/min/1.73 m2 Normal >=59 [facility] Comment on above: Performed By: #### 1 [id number] #### [facility] [address] [place] [address] Ambulatory Visit Summaryon 0 11-09-2023 Ambulatory Visit Summary KAYLA MONTANA :1975 Visit Date:11/09/2023 Ambulatory Visit Instructions Your Diagnosis Acute URI Wheezing BMI 40.0-44.9, adult Morbid obesity Your Care Team Attending Physician - Grace BURGER, Stefania Lowe Primary Care Physician - Andreas ECKERT DO, FAAFP This Is Your Medications List cyanocobalamin (cyanocobalamin 1000 mcg/mL Inj) cyclobenzaprine (cyclobenzaprine 10 mg Tab) duloxetine (duloxetine 30 mg Cap-DR) elderberry fluoxetine (FLUoxetine 40 mg Cap) fluticasone nasal (Flonase 0.05 mg/inh [place]) folic acid (folic acid 1 mg Tab) hydrochlorothiazide (hydrochlorothiazide 25 mg Tab) ibuprofen (ibuprofen 800 mg Tab) lisinopril (lisinopril 10 mg Tab) meclizine (meclizine 12.5 mg Tab) metformin (metformin 500 mg Tab) montelukast (Singulair 10 mg Tab) pantoprazole (Protonix 40 mg Tab-DR) potassium chloride (potassium chloride 10 mEq Cap-ER) propranolol (propranolol 60 mg Cap-ER) Procedures Performed Epidural injection of lumbar spine using fluoroscopic guidance (12/10/2022), Injection of steroid into shoulder joint (08/14/2022), Epidural injection of lumbar spine using fluoroscopic guidance (01/29/2022), Injection of nerve root of lumbar spine using fluoroscopic guidance (11/21/2020), EGD - Esophagogastroduodenoscopy (06/25/2020), Epidural injection of lumbar spine using fluoroscopic guidance (05/16/2020), Injection of nerve root of lumbar spine using fluoroscopic guidance (02/08/2020), Injection of sacroiliac joint using fluoroscopic guidance (11/30/2019), Colonoscopy (09/29/2019), Duodenal biopsy (09/29/2019), EGD - Esophagogastroduodenoscopy (09/29/2019), Gastroesophageal junction (09/29/2019), Sigmoid colon polyp (09/29/2019), Nerve block with injection of lumbar spine using fluoroscopic guidance (08/10/2019), TPI - Trigger point injection (08/10/2019), Injection of sacroiliac joint using fluoroscopic guidance (05/12/2019), Right L4/5 Transforaminal Epidural Steroid Injection (11/24/2018), botox injections for migraine (04/08/2018), Injection of sacroiliac joint using fluoroscopic guidance (03/10/2018), left knee injection (12/17/2017), Injection of sacroiliac joint using fluoroscopic guidance (11/05/2016), Trigger point injection (11/05/2016), Injection of sacroiliac joint using fluoroscopic guidance (07/09/2016), TPI - Trigger point injection (02/07/2016), Trigger Point Injections (02/07/2016), Trochanteric bursa (04/12/2015), Trigger point injection (01/25/2015), back surgery, Tonsillectomy. Discharge Vitals Temperature (Oral) 37 ?C Heart Rate (Peripheral) 67 Blood Pressure 124/76 Height 165 cm Height 65 in Weight 116.7 kg Weight 256.74 lb BMI 42.87 What to do next Scheduled Follow-Up Appointments Thursday 9:40 AM EDT With: Serafin Roberson DO Where: [facility] Medicine Jethro [facility] Family Medicine Office/Clini c Noteon 11-09-2023 Family Medicine Office/Clinic Note Chief Complaint pt here for congesiton, onset 2 weeks. pt ears feel very full, feeling dizzy, chest congestion, cough, body aches, chills, SOB, wheezing. COVID negative today. History of Present Illness Kayla is a 48 yo female presenting today for acute visit d/t URI sx PCP is Dr. Eckert Pt reports symptoms started 2 weeks ago Pt reports they are experiencing: ear fullness, sinus/facial pressure, dizziness, chest/nasal congestion, body aches, chills, SOB, wheezing, cough Pt denies CP, SOB, chest tightness, runny nose, sore throat, ear pain/pressure, changes in taste/smell/appetite, n/v/d, abd pain, JACKSON, fatigue, urinary changes, or dizziness at this time. Pt denies any known sick contacts, COVID+ case or recent travel at this time Review of Systems PHQ Score Initial Depression Screen Score: 0 SCORE Physical Exam Vitals & Measurements T: 37 ?C(Oral) HR: 67(Peripheral) BP: 124/76 SpO2: 99% HT: 65 in HT: 165 cm WT: 116.7 kg WT: 256.74 lb BMI: 42.87 General: Well developed, well nourished, in no acute distress Eyes: Bilateral PERRLA, conjunctivae and sclerae wnl, EOMs intact, lids without stye, chalazion, ect/extropion, ptosis, xanthelasma, blepharitis. No discharge to inner canthi.Negative for corneal abrasion or foreign bodies. Ears: grossly normal hearing Nose: No deformity, discharge, inflammation, or lesions. No congestion, no erythema; pink & moist turbinates; clear rhinorrhea. Mouth: mucous membranes pink, moist and intact. [place] posterior oropharynx, no palatal inflammation, uvula midline, no cobble-stoning, no enlarged tonsils, no tonsillar exudate, no ulcers, no active post nasal drip. tongue midline and wnl. Good dentition. Neck: Neck supple. No lymphadenopathy. Trachea midline. No thyroid, masses, tenderness, or enlargement noted. No bruit. Lungs: Normal respiratory effort and clear to auscultation Cardio: Regular rate and rhythm, normal S1 and S2, no murmur, no rub Abdomen: not assessed Musculoskeletal: No deformity or scoliosis noted. No vertebral tenderness. Normal range of motion. No vertebral point tenderness. Joints normal. No erythema, edema, effusion, crepitus, or ecchymosis. Straight leg raise negative Extremity: No clubbing, cyanosis, edema, or deformity. Normal ROM with upper and lower extremities, bilaterally. Neurologic: Cranial nerves II-XII grossly intact. motor strength equal & normal bilaterally, sensation equal & normal bilaterally. Gait normal. Skin: No rashes, ulcerations, or suspicious lesions Mental Status: Alert and oriented x3. Normal mood and affect Assessment/Plan 1. Sinusitis (J32.9: Chronic sinusitis, unspecified) Given length of symptoms and sinus complaints, will treat with Augmentin x 10 days. Advised to complete antibiotics as ordered. Discussed expected improvement of symptoms within 7-10 days. Counseled pt to take probiotics or eat 2 Activia yogurts daily while on antibiotic to maintain normal gut lashell and to prevent c.diff. Push fluids and rest Can use nasal steroid spray and nasal saline to moisturize nostrils PRN. Use a netti pot lavage, use decongestant (sudafed) or Mucinex D, antihistamine (xyzole) and flonase PRN. Use cool-mist vaporizer or humidifier. Call if no improvement in 7-10 days, sooner if increasing cough, fever, or new symptoms. Patient verbalizes understanding. If no improvement at that time will consider changing drug class and/or refer to ENT for CT or MRI Ordered: amoxicillin-clavulanate, = 1 tab(s), Oral, q12hr, X 10 day(s), # 20 tab(s), Refills(s) 0, Pharmacy: [facility]/pharmacy #[id number], 165, cm, 11/09/23 16:50:00 EDT, Height/Length Dosing, 116.7, kg, 11/09/23 16:50:00 EDT, Weight Dosing guaifenesin-pseudoephedrine, 1 tab(s), Oral, q12hr for 10 day(s), 20 tab(s), Refill(s) 0, [facility]acy [id number], 165, cm, 11/09/23 16:50:00 EDT, Height/Length Dosing, 116.7, kg, 11/09/23 16:50:00 EDT, Weight Dosing 2. Wheezing (R06.2: Wheezing) start albuterol 90mcg/inh qd PRN (JOHNATHON inhaler) x 30days and take tessalon perles for cough Discussed red flags/when to report to ED - pt verbalized understanding see #1 Ordered: albuterol, 2 puff(s), Inhalation, q6hr, 18 gm, Refill(s) 0, [id number], 165, cm, 11/09/23 16:50:00 EDT, Height/Length Dosing, 116.7, kg, 11/09/23 16:50:00 EDT, Weight Dosing benzonatate, 100 mg = 1 cap(s), Oral, TID, X 7 day(s), # 21 cap(s), Refills(s) 0, Pharmacy: [facility]/pharmacy #[id number], 165, cm, 11/09/23 16:50:00 EDT, Height/Length Dosing, 116.7, kg, 11/09/23 16:50:00 EDT, Weight Dosing 3. BMI 40.0-44.9, adult (Z68.41: Body mass index [BMI] 40.0-44.9, adult) The standard range for ages 18 and older is >=18.5 and < 25 kg/m2. Your BMI today was above this range, this falls in the overweight to obese category and there are medical benefits to weight loss. We can offer counselling, referral, and/or medical support in addressing this problem. Your BMI and weight management will be followed at subsequent visits. 4. Morbid obesity (E66.01: Morbid (sev (more content not included)... [facility] Comment on above: Result Comment: Elec tronically Signed By: Grace BURGER, Stefania Lowe\.br\Date and Time Signed: 11/09/23 17:12 EDT Patient Educationon 11-09-19 Patient Education Upper Respiratory In fection, Adult An upper respiratory infection (URI) affects the nose, throat, and upper airways that lead to the lungs. The most common type of URI is often called the common cold. URIs usually get better on their own, without medical treatment. What are the causes? A URI is caused by a germ (virus). You may catch these germs by: ? Breathing in droplets from an infected person's cough or sneeze. ? Touching something that has the germ on it (is contaminated) and then touching your mouth, nose, or eyes. What increases the risk? You are more likely to get a URI if: ? You are very young or very old. ? You have close contact with others, such as at work, school, or a health care facility. ? You smoke. ? You have long-term (chronic) heart or lung disease. ? You have a weakened disease-fighting system (immune system). ? You have nasal allergies or asthma. ? You have a lot of stress. ? You have poor nutrition. What are the signs or symptoms? ? Runny or stuffy (congested) nose. ? Cough. ? Sneezing. ? Sore throat. ? Headache. ? Feeling tired (fatigue). ? Fever. ? Not wanting to eat as much as usual. ? Pain in your forehead, behind your eyes, and over your cheekbones (sinus pain). ? Muscle aches. ? Redness or irritation of the eyes. ? Pressure in the ears or face. How is this treated? URIs usually get better on their own within 7?10 days. Medicines cannot cure URIs, but your doctor may recommend certain medicines to help relieve symptoms, such as: ? Pwrg-duj-yhvhtep cold medicines. ? Medicines to reduce coughing (cough suppressants). Coughing is a type of defense against infection that helps to clear the nose, throat, windpipe, and lungs (respiratory system). Take these medicines only as told by your doctor. ? Medicines to lower your fever. Follow these instructions at home: Activity ? Rest as needed. ? If you have a fever, stay home from work or school until your fever is gone, or until your doctor says you may return to work or school. ? You should stay home until you cannot spread the infection anymore (you are not contagious). ? Your doctor may have you wear a face mask so you have less risk of spreading the infection. Relieving symptoms ? Rinse your mouth often with salt water. To make salt water, dissolve ??1 tsp (3?6 g) of salt in 1 cup (237 mL) of warm water. ? Use a cool-mist humidifier to add moisture to the air. This can help you breathe more easily. Eating and drinking ? Drink enough fluid to keep your pee (urine) pale yellow. ? Eat soups and other clear broths. General instructions ? Take qhqg-ful-obduzya and prescription medicines only as told by your doctor. ? Do not smoke or use any products that contain nicotine or tobacco. If you need help quitting, ask your doctor. ? Avoid being where people are smoking (avoid secondhand smoke). ? Stay up to date on all your shots (immunizations), and get the flu shot every year. ? Keep all follow-up visits. How to prevent the spread of infection to others ? Wash your hands with soap and water for at least 20 seconds. If you cannot use soap and water, use hand trouble locater. ? Avoid touching your mouth, face, eyes, or nose. ? Cough or sneeze into a tissue or your sleeve or elbow. Do not cough or sneeze into your hand or into the air. Contact a doctor if: ? You are getting worse, not better. ? You have any of these: ? A fever or chills. ? Brown or red mucus in your nose. ? Yellow or brown fluid (discharge)coming from your nose. ? Pain in your face, especially when you bend forward. ? Swollen neck glands. ? Pain when you swallow. ? White areas in the back of your throat. Get help right away if: ? You have shortness of breath that gets worse. ? You have very bad or constant: ? Headache. ? Ear pain. ? Pain in your forehead, behind your eyes, and over your cheekbones (sinus pain). ? Chest pain. ? You have long-lasting (chronic) lung disease along with any of these: ? Making high-pitched whistling sounds when you breathe, most often when you breathe out (wheezing). ? Long-lasting cough (more than 14 days). ? Coughing up blood. ? A change in your usual mucus. ? You have a stiff neck. ? You have changes in your: ? Vision. ? Hearing. ? Thinking. ? Mood. These symptoms may be an emergency. Get help right away. Call 911. ? Do not wait to see if the symptoms will go away. ? Do not drive yourself to the hospital. Summary ? An upper respiratory infection (URI) is caused by a germ (virus). The most common type of URI is often called the common cold. ? URIs usually get better within 7?10 days. ? Take gmkc-dgq-rdoapxh and prescription medicines only as told by your doctor. This information is not intended to replace advice given to you by your health care provider. Make sure y (more content not included)... [facility] Insurance Correspondence Off 2023 Insurance Correspondence Office [id number]#2.00TIFF [facility] Insurance Correspondence Off iceon 10-29-2023 Insurance Correspondence Office [id number]#2.00TIFF [facility] Consent for Treatmenton 09-23 Consent for Treatment [id number]#1.00TIFF [facility] Consultation Noteon 10-14-19 Consultation Note Patient is presentin g with with multiple areas of pain. She has a past medical history of lumbosacral radiculopathy, cervical radiculopathy, cervical dystonia, right hip and groin pain, postlaminectomy pain syndrome, and fibromyalgia. She also has chronic intractable migraines that have been going on for several years and typically last for over 1 day when occurring and this happens 3-5 times per week when they are exacerbated this happens at least 5 times per week, present for years. She has had Botox for these in the past that was very effective and she would like to consider revisiting this. Her most concerning areas of pain right now are in her back and right leg radiating down the leg laterally as well as pain in the groin. She rates this pain as a 2/10 but can be an 8-10/10 particular when exacerbated. This is worse with any standing walking as well as transitioning from seated to standing position. She has morning stiffness and this is exacerbated throughout the day as well. We discussed that this is likely coming from an L4 and L5 nerve root as it follows an L4 and L5 dermatomal distribution. Her groin pain may be secondary to the hip joint and we discussed further evaluating this with x-rays. We did review her lumbar MRI again with her. She has responded well to a right L5/S1 transforaminal epidural steroid injection in the past. We did discuss that transforaminal epidural steroid injection would be appropriate for treating her radicular symptoms at this time as well. She is also taking gabapentin and Flexeril with good relief. Given her multiple areas of pain we discussed addressing each 1 of these. Lumbosacral radiculopathy: As above Chronic intractable migraines and cervical dystonia: Discussed possibility of Botox, cervical dystonia we discussed trigger points may be appropriate at the next visit Right hip and groin pain: Worse in the morning, worse with activities such as standing walking and is localized to the groin and medial thigh, can be a 2 to a 7/10 in severity, will order x-rays to evaluate hip pathology. CARLTON Score: 30% PHQ-2: 4 Patient denies any symptoms of progressively worsening upper/lower extremity weakness, progressively worsening gait abnormality, new onset bowel/bladder incontinence/ urinary retention, or saddle anesthesia. No new or worsening symptoms of fever, chills, night sweats. 14 Point Review of systems negative unless otherwise noted. General: No acute distress. Patient appears well-nourished. HEENT: Head is normocephalic and external ears are normal in appearance. Cardiovascular: No signs of poor perfusion and no peripheral edema Pulmonary: Nonlabored breathing, symmetric chest movement. GI: Abdomen nondistended Integumentary: No lesions Neurologic: Alert, oriented x3. 5/5 strength grossly in the bilateral upper extremities. Sensation intact to light touch in the bilateral upper extremities. 5/5 strength grossly in the bilateral lower extremities. Sensation intact to light touch in the bilateral lower extremities. MSK/Special Testing: Negative Karen sign bilaterally, seated straight leg raise test did reproduce radicular symptoms on the right only, JOSE reproduced groin pain on the right. Multiple tender spots throughout body. History, physical examination, and personal review of pertinent imaging results indicate a diagnosis of: -Lumbosacral radiculopathy, acutely exacerbated -Cervical radiculopathy, not currently flared -Chronic intractable migraines and cervical dystonia -Fibromyalgia -Right hip pain Plan: -her low back and radicular symptoms are the worst we discussed scheduling her for right-sided L4/5 and L5/1 transforaminal epidural steroid injection under fluoroscopic guidance -She has right hip and groin pain as well that I believe is coming from her hip joint and we discussed performing a right hip x-ray to better understand what is going on -At her follow-up in 1 month postinjection we discussed that if she still has cervical dystonia and pain from this we can consider trigger point injections in her cervical paraspinal muscle region, she also has a history of migraines and would like to discuss Botox that she has chronic intractable migraines that last several days when occurring and occur 5 times per week when occurring. Patient was counseled on the above diagnosis and treatment, all questions were answered and patient agrees to adhere to the plan above. Risk and benefits of appropriate procedures and medications were reviewed as well with patient, who voiced understanding and agreeance. Patient was counseled on appropriate use of opioids if prescribed or renewed today and naloxone was offered to patient if opioids were prescribed or maintained at this visit. PHQ-2 scoring reviewed with patient and discussed seeking treatment for depression or mood disorder as appropriate. Patient was counseled on smoking cessation and/or continuing to abstain from nicotine/tobacco products as appropriate (more content not included)... [facility] Comment on above: Result Comment: Elec tronically Signed By: Rupesh Gandara DO.br\Date and Time Signed: 10/14/23 12:28 EDT Legal Correspondence Officeo n 10-14-2023 Legal Correspondence Office [id number]#1.00TIFF [facility] Office/Clinic Note-Nurseon 0 10-14-2023 Office/Clinic Note-Nurse [id number]#1.00TIFF [facility] Office/Clinic Note-Physician on 10-14-2023 Office/Clinic Note-Physician [id number]#1.00TIFF [facility] Patient Correspondenceon Patient Correspondence [id number]#1.00TIFF [facility] Patient Correspondence [id number]#1.00TIFF [facility] Patient Correspondence [id number]#1.00TIFF [facility] Patient Correspondence [id number]#1.00TIFF [facility] Patient History Officeon Patient History Office [id number]#1.00TIFF [facility] Physician Orderon 10-14-2023 Physician Order [id number]#1.00TIFF [facility] C Urineon 09-04-2023 Bacteria identified Cx Nom (U) Microbiology PROCEDURE: Urine Culture [R1] SOURCE: U CleanCatch BODY SITE: COLLECTED DATE/TIME: 09/01/2023 17:07 EDT RECEIVED DATE/TIME: 09/02/2023 12:34 EDT START DATE/TIME: 09/02/2023 12:34 EDT FREE TEXT SOURCE: Haylee SAMUELS, Maximilian SAMUELS, Maximilian Carbajal FINAL REPORTS Final Report [] Verified Date/Time: 09/04/2023 09:30 EDT 1,000 cfu/ml Mixed skin contaminants Performing Locations R1: This test was performed at: [facility], [address] [place] [address], [address] [place] [address], [facility] Comment on above: Performed By: #### 2 [id number] ####[place] [address] Ambulatory Visit Summaryon 0 09-01-2023 Ambulatory Visit Summary KAYLA MONTANA :1975 Visit Date:09/01/2023 Ambulatory Visit Instructions Your Diagnosis Dysuria Your Care Team Attending Physician - Haylee SAMUELS, Maximilian Carbajal Primary Care Physician - Andreas ECKERT DO, FAAFP This Is Your Medications List albuterol (Albuterol (Eqv-Proventil HFA) 90 mcg/inh inhalation aerosol) cetirizine (cetirizine 10 mg oral tablet, chewable) cyanocobalamin (Vitamin B12 1000 mcg Tab) cyanocobalamin (cyanocobalamin 1000 mcg/mL Inj) cyclobenzaprine (cyclobenzaprine 10 mg Tab) duloxetine (duloxetine 30 mg Cap-DR) fluoxetine (FLUoxetine 40 mg Cap) fluticasone nasal (Flonase 0.05 mg/inh [place]) folic acid (folic acid 1 mg Tab) hydrochlorothiazide (hydrochlorothiazide 25 mg Tab) ibuprofen (ibuprofen 800 mg Tab) ketotifen ophthalmic (Zaditor 0.025% ophthalmic solution) lisinopril (lisinopril 10 mg Tab) meclizine (meclizine 12.5 mg Tab) metformin (metformin 500 mg Tab) montelukast (Singulair 10 mg Tab) mupirocin topical (Bactroban 2% Cream) pantoprazole (Protonix 40 mg Tab-DR) phentermine (phentermine 37.5 mg Tab) potassium chloride (potassium chloride 10 mEq Cap-ER) propranolol (propranolol 60 mg Cap-ER) Procedures Performed Injection of steroid into shoulder joint (08/14/2022), Epidural injection of lumbar spine using fluoroscopic guidance (01/29/2022), Injection of nerve root of lumbar spine using fluoroscopic guidance (11/21/2020), EGD - Esophagogastroduodenoscopy (06/25/2020), Epidural injection of lumbar spine using fluoroscopic guidance (05/16/2020), Injection of nerve root of lumbar spine using fluoroscopic guidance (02/08/2020), Injection of sacroiliac joint using fluoroscopic guidance (11/30/2019), Colonoscopy (09/29/2019), Duodenal biopsy (09/29/2019), EGD - Esophagogastroduodenoscopy (09/29/2019), Gastroesophageal junction (09/29/2019), Sigmoid colon polyp (09/29/2019), Nerve block with injection of lumbar spine using fluoroscopic guidance (08/10/2019), TPI - Trigger point injection (08/10/2019), Injection of sacroiliac joint using fluoroscopic guidance (05/12/2019), Right L4/5 Transforaminal Epidural Steroid Injection (11/24/2018), botox injections for migraine (04/08/2018), Injection of sacroiliac joint using fluoroscopic guidance (03/10/2018), left knee injection (12/17/2017), Injection of sacroiliac joint using fluoroscopic guidance (11/05/2016), Trigger point injection (11/05/2016), Injection of sacroiliac joint using fluoroscopic guidance (07/09/2016), TPI - Trigger point injection (02/07/2016), Trigger Point Injections (02/07/2016), Trochanteric bursa (04/12/2015), Trigger point injection (01/25/2015), back surgery, Tonsillectomy. Discharge Vitals Temperature (Tympanic) 36.5 ?C Heart Rate (Peripheral) 72 Blood Pressure 120/80 Height 165 cm Height 65 in Weight 118 kg Weight 259.6 lb BMI 43.34 What to do next Scheduled Follow-Up Appointments 2023 11:00 AM EDT With: Sanam MCMAHON, Daja Harman Where: [facility] Thursday 11:15 AM EDT With: Rupesh Gandara DO Where: [facility] Medications What How Much When Why Instructions Unchanged albuterol (Albuterol (Eqv-Proventil HFA) 90 mcg/ inh inhalation aerosol) 2 Puffs Inhalation Every 4 hours Unchanged cetirizine (cetirizine 10 mg oral tablet, chewable) 1 Tablets By Mouth Every day as needed for for allergy symptoms Unchanged cyanocobalamin (cyanocobalamin 1000 mcg/ mL Inj) 1 Milliliter Intramuscular Once a month B12 deficiency Also dispense 3 ml syringes 25 gauge 1 needle, quantity sufficient for injections. Unchanged cyanocobalamin (Vitamin B12 1000 mcg Tab) 1,000 Microgram By Mouth Every day Unchanged cyclobenzaprine (cyclobenzaprine 10 mg Tab) 1 Tablets By Mouth 3 times a day as needed for for spasm Unchanged duloxetine (duloxetine 30 mg Cap-DR) 1 Capsules By Mouth 2 times a day (do not crush or chew) Unchanged fluoxetine (FLUoxetine 40 mg Cap) 1 Capsules By Mouth Every day Unchanged fluticasone nasal (Flonase 0.05 mg/ inh [place]) 2 Sprays Nasal Inhalation Every day Congestion of nasal sinus each nostril Unchanged folic acid (folic acid 1 mg Tab) 1 Tablets By Mouth Every day Folate deficiency Unchanged hydrochlorothiazide (hydrochlorothiazide 25 mg Tab) 1 Tablets By Mouth Once a day (in the morning) Unchanged ibuprofen (ibuprofen 800 mg Tab) 1 Tablets By Mouth 2 times a day as needed for as needed for pain Unchanged ketotifen ophthalmic (Zaditor 0.025% ophthalmic solution) 1 Drops Both eyes Every 8 hours Unchanged lisinopril (lisinopril 10 mg Tab) 10 Milligram By Mouth Every day HTN (hypertension) Unchanged meclizine (meclizine 12.5 mg Tab) 1 Tablets By Mouth 3 times a day as needed for for dizziness Vertigo Unchanged metformin (metformin 500 mg Tab) 1 Tablets By Mouth 2 times a day Adult BMI 40.0-44.9 kg/sq m Unchanged montelukast (Singulair 10 mg Tab) 1 Tablets By Mouth Once a day (in t (more content not included)... Normal [facility] Ambulatory Visit Summary KAYLA MONTANA :1975 Visit Date:09/01/2023 Ambulatory Visit Instructions Your Diagnosis Dysuria Your Care Team Attending Physician - Haylee SAMUELS, Maximilian Carbajal Primary Care Physician - Andreas ECKERT DO, FAAFP This Is Your Medications List albuterol (Albuterol (Eqv-Proventil HFA) 90 mcg/inh inhalation aerosol) cetirizine (cetirizine 10 mg oral tablet, chewable) cyanocobalamin (Vitamin B12 1000 mcg Tab) cyanocobalamin (cyanocobalamin 1000 mcg/mL Inj) cyclobenzaprine (cyclobenzaprine 10 mg Tab) duloxetine (duloxetine 30 mg Cap-DR) fluoxetine (FLUoxetine 40 mg Cap) fluticasone nasal (Flonase 0.05 mg/inh [place]) folic acid (folic acid 1 mg Tab) hydrochlorothiazide (hydrochlorothiazide 25 mg Tab) ibuprofen (ibuprofen 800 mg Tab) ketotifen ophthalmic (Zaditor 0.025% ophthalmic solution) lisinopril (lisinopril 10 mg Tab) meclizine (meclizine 12.5 mg Tab) metformin (metformin 500 mg Tab) montelukast (Singulair 10 mg Tab) mupirocin topical (Bactroban 2% Cream) pantoprazole (Protonix 40 mg Tab-DR) phentermine (phentermine 37.5 mg Tab) potassium chloride (potassium chloride 10 mEq Cap-ER) propranolol (propranolol 60 mg Cap-ER) Procedures Performed Injection of steroid into shoulder joint (08/14/2022), Epidural injection of lumbar spine using fluoroscopic guidance (01/29/2022), Injection of nerve root of lumbar spine using fluoroscopic guidance (11/21/2020), EGD - Esophagogastroduodenoscopy (06/25/2020), Epidural injection of lumbar spine using fluoroscopic guidance (05/16/2020), Injection of nerve root of lumbar spine using fluoroscopic guidance (02/08/2020), Injection of sacroiliac joint using fluoroscopic guidance (11/30/2019), Colonoscopy (09/29/2019), Duodenal biopsy (09/29/2019), EGD - Esophagogastroduodenoscopy (09/29/2019), Gastroesophageal junction (09/29/2019), Sigmoid colon polyp (09/29/2019), Nerve block with injection of lumbar spine using fluoroscopic guidance (08/10/2019), TPI - Trigger point injection (08/10/2019), Injection of sacroiliac joint using fluoroscopic guidance (05/12/2019), Right L4/5 Transforaminal Epidural Steroid Injection (11/24/2018), botox injections for migraine (04/08/2018), Injection of sacroiliac joint using fluoroscopic guidance (03/10/2018), left knee injection (12/17/2017), Injection of sacroiliac joint using fluoroscopic guidance (11/05/2016), Trigger point injection (11/05/2016), Injection of sacroiliac joint using fluoroscopic guidance (07/09/2016), TPI - Trigger point injection (02/07/2016), Trigger Point Injections (02/07/2016), Trochanteric bursa (04/12/2015), Trigger point injection (01/25/2015), back surgery, Tonsillectomy. Discharge Vitals Temperature (Tympanic) 36.5 ?C Heart Rate (Peripheral) 72 Blood Pressure 120/80 Height 165 cm Height 65 in Weight 118 kg Weight 259.6 lb BMI 43.34 What to do next Scheduled Follow-Up Appointments 2023 11:00 AM EDT With: Daja Ho Where: [facility] Thursday 11:15 AM EDT With: Rupesh Gandara DO Where: [facility] Medications What How Much When Why Instructions Unchanged albuterol (Albuterol (Eqv-Proventil HFA) 90 mcg/ inh inhalation aerosol) 2 Puffs Inhalation Every 4 hours Unchanged cetirizine (cetirizine 10 mg oral tablet, chewable) 1 Tablets By Mouth Every day as needed for for allergy symptoms Unchanged cyanocobalamin (cyanocobalamin 1000 mcg/ mL Inj) 1 Milliliter Intramuscular Once a month B12 deficiency Also dispense 3 ml syringes 25 gauge 1 needle, quantity sufficient for injections. Unchanged cyanocobalamin (Vitamin B12 1000 mcg Tab) 1,000 Microgram By Mouth Every day Unchanged cyclobenzaprine (cyclobenzaprine 10 mg Tab) 1 Tablets By Mouth 3 times a day as needed for for spasm Unchanged duloxetine (duloxetine 30 mg Cap-DR) 1 Capsules By Mouth 2 times a day (do not crush or chew) Unchanged fluoxetine (FLUoxetine 40 mg Cap) 1 Capsules By Mouth Every day Unchanged fluticasone nasal (Flonase 0.05 mg/ inh [place]) 2 Sprays Nasal Inhalation Every day Congestion of nasal sinus each nostril Unchanged folic acid (folic acid 1 mg Tab) 1 Tablets By Mouth Every day Folate deficiency Unchanged hydrochlorothiazide (hydrochlorothiazide 25 mg Tab) 1 Tablets By Mouth Once a day (in the morning) Unchanged ibuprofen (ibuprofen 800 mg Tab) 1 Tablets By Mouth 2 times a day as needed for as needed for pain Unchanged ketotifen ophthalmic (Zaditor 0.025% ophthalmic solution) 1 Drops Both eyes Every 8 hours Unchanged lisinopril (lisinopril 10 mg Tab) 10 Milligram By Mouth Every day HTN (hypertension) Unchanged meclizine (meclizine 12.5 mg Tab) 1 Tablets By Mouth 3 times a day as needed for for dizziness Vertigo Unchanged metformin (metformin 500 mg Tab) 1 Tablets By Mouth 2 times a day Adult BMI 40.0-44.9 kg/sq m Unchanged montelukast (Singulair 10 mg Tab) 1 Tablets By Mouth Once a day (in t (more content not included)... Normal [facility] Family Medicine Office/Clini c Noteon 09-01-2023 Family Medicine Office/Clinic Note Chief Complaint Urinary issues HPI Staff Kayla is a 47 y.o. female here for urinary issues Dysuria: Stinging Hematuria:Denies Incomplete Bladder Emptying: Most of time emptying bladder Frequency: Denies Urgency: Denies Urgency incontinence: in middle of night Nocturia: 2-3 times a night Stream: Most of time stream is steady Abdominal pain: pressure in abdomen Flank pain: Lower back pain Hx of kidney stone: Denies Last UTI: 6-12 months prior Symptoms started: 1 month on and off LMP: 1 week ago She also has started with rash on hands and arm symptoms started 1 week ago History of Present Illness Reviewed and agree with above documented HPI by biomedical instrument technician. Patient is a 47-year-old female who comes with complaint of urinary issues. Her complaints include dysuria that she describes as stinging urgency incontinence in the middle of the night, nocturia 2-3 times a night, abdominal pressure and abdomen, flank pain. She denies hematuria, incomplete emptying, frequency, history of kidney stones. She states her last UTI was 6 to 12 months ago, last menstrual period was 1 week ago. States symptoms have been off and on for the last month. Patient has allergy to Lyrica and sulfa. She also complains of a rash on her arms and hands that started about a week ago. Physical Exam Vitals & Measurements T: 36.5 ?C(Tympanic) HR: 72(Peripheral) BP: 120/80 HT: 65 in HT: 165 cm WT: 118 kg WT: 259.6 lb BMI: 43.34 General: Well developed, well nourished, in no acute distress, does not appear ill or septic Eyes: Pupils equal, round, and reactive to light. Conjunctivae and sclerae normal, and extraocular movements intact Ears: No deformity or lesion of external ear. Canals and TM appear normal bilaterally. TM?s intact, not inflamed, with normal light reflex. Hearing grossly normal to conversational speech Nose: No deformity, discharge, inflammation, or lesions Mouth: Mucous membranes moist. Normal oropharynx, and posterior pharynx without lesions or exudates. Tongue normal Neck: no adenopathy Lungs: Normal respiratory effort and clear to auscultation Cardio: regular rate and rhythm, no murmur Abdomen: Soft, non-distended, non-tender Musculoskeletal: No deformity or scoliosis noted. Normal range of motion. Joints normal. No erythema, edema, effusion, or ecchymosis patient states flank pain with palpation. Extremity: No clubbing, cyanosis, edema, or deformity, with normal ROM in both upper and lower bilateral extremities Neurologic: Grossly normal Skin: No rashes, ulcerations, or suspicious lesions Mental Status: Alert and oriented x3. Normal speech and thought content, normal mood and affect Assessment/Plan Urinalysis was positive for leukocytes, cloudy appearance. All other measures were negative. 1. Symptoms of urinary tract infection (R39.9: Unspecified symptoms and signs involving the genitourinary system) Your urinalysis is negative for a UTI. Will treat empirically with nitrofurantoin, finish course of ATB. . Will culture urine and notify of results in 3-5 days. Encouraged to drink increased amounts of fluids mainly water. Fu with PCP if not improving over next 3-4 days with ATB or worsening. Patient and/or parent verbalized understanding of treatment plan. Ordered: nitrofurantoin, 100 mg = 1 cap(s), Oral, BID, X 5 day(s), # 10 cap(s), Refills(s) 0, Pharmacy: [id number], 165, cm, 09/01/23 15:20:00 EDT, Height/Length Dosing, 118, kg, 09/01/23 15:20:00 EDT, Weight Dosing 2. Dysuria (R30.0: Dysuria) Same as above Ordered: nitrofurantoin, 100 mg = 1 cap(s), Oral, BID, X 5 day(s), # 10 cap(s), Refills(s) 0, Pharmacy: [id number], 165, cm, 09/01/23 15:20:00 EDT, Height/Length Dosing, 118, kg, 09/01/23 15:20:00 EDT, Weight Dosing Urnls Dip Stick Auto w/o Microscopy POC 72413 3. Rash (R21: Rash and other nonspecific skin eruption) Will treat rash with short dose of prednisone. Advised patient not to to scratch so as to prevent possible skin infection. If rash does not clear in the next 3 to 5 days follow-up with PCP. Patient is agreeable to treatment plan. Ordered: predniSONE, 20 mg = 1 tab(s), Oral, Daily, X 7 day(s), # 7 tab(s), Refills(s) 0, Pharmacy: [id number], 165, cm, 09/01/23 15:20:00 EDT, Height/Length Dosing, 118, kg, 09/01/23 15:20:00 EDT, Weight Dosing Portions of this record may have been created with voice recognition artificial intelligence software, specifically [employer], [employer] and or [employer]. Occasional wrong-word or `[id number]? substitutions may have occurred due to the inherent limitations of voice recognition and artificial intelligence software. Follow-up No qualifying data available Patient Education Rash, Adult, Cjxi-bt-Iixl Rash, Adult, Loyq-qk-Edde Dysuria Problem List/Past Medical History Ongoing Abnormal EKG Acanthosis nigricans Acid reflux ADHD (attention deficit hyperactivity disorder), inattentive ty (more content not included)... Normal [facility] Comment on above: Result Comment: Elec tronically Signed By: Haylee SAMUELS, Maximilian Trammell.br\Date and Time Signed: 09/01/23 16:22 EDT Patient Educationon 09-01-19 24 Patient Education Rash, Adult A rash is a change in the color of your skin. A rash can also change the way your skin feels. There are many different conditions and factors that can cause a rash. Follow these instructions at home: The goal of treatment is to stop the itching and keep the rash from spreading. Watch for any changes in your symptoms. Let your doctor know about them. Follow these instructions to help with your condition: Medicine Take or apply qeif-wpu-apufcwd and prescription medicines only as told by your doctor. These may include medicines: ? To treat red or swollen skin (corticosteroid creams). ? To treat itching. ? To treat an allergy (oral antihistamines). ? To treat very bad symptoms (oral corticosteroids). Skin care ? Put cool cloths (compresses) on the affected areas. ? Do not scratch or rub your skin. ? Avoid covering the rash. Make sure that the rash is exposed to air as much as possible. Managing itching and discomfort ? Avoid hot showers or baths. These can make itching worse. A cold shower may help. ? Try taking a bath with: ? Epsom salts. You can get these at your local pharmacy or grocery store. Follow the instructions on the package. ? Baking soda. Pour a small amount into the bath as told by your doctor. ? Colloidal oatmeal. You can get this at your local pharmacy or grocery store. Follow the instructions on the package. ? Try putting baking soda paste onto your skin. Stir water into baking soda until it gets like a paste. ? Try putting on a lotion that relieves itchiness (calamine lotion). ? Keep cool and out of the sun. Sweating and being hot can make itching worse. General instructions ? Rest as needed. ? Drink enough fluid to keep your pee (urine) pale yellow. ? Wear loose-fitting clothing. ? Avoid scented soaps, detergents, and perfumes. Use gentle soaps, detergents, perfumes, and other cosmetic products. ? Avoid anything that causes your rash. Keep a journal to help track what causes your rash. Write down: ? What you eat. ? What cosmetic products you use. ? What you drink. ? What you wear. This includes jewelry. ? Keep all follow-up visits as told by your doctor. This is important. Contact a doctor if: ? You sweat at night. ? You lose weight. ? You pee (urinate) more than normal. ? You pee less than normal, or you notice that your pee is a darker color than normal. ? You feel weak. ? You throw up (vomit). ? Your skin or the whites of your eyes look yellow (jaundice). ? Your skin: ? Tingles. ? Is numb. ? Your rash: ? Does not go away after a few days. ? Gets worse. ? You are: ? More thirsty than normal. ? More tired than normal. ? You have: ? New symptoms. ? Pain in your belly (abdomen). ? A fever. ? Watery poop (diarrhea). Get help right away if: ? You have a fever and your symptoms suddenly get worse. ? You start to feel mixed up (confused). ? You have a very bad headache or a stiff neck. ? You have very bad joint pains or stiffness. ? You have jerky movements that you cannot control (seizure). ? Your rash covers all or most of your body. The rash may or may not be painful. ? You have blisters that: ? Are on top of the rash. ? Grow larger. ? Grow together. ? Are painful. ? Are inside your nose or mouth. ? You have a rash that: ? Looks like purple pinprick-sized spots all over your body. ? Has a bull's eye or looks like a target. ? Is red and painful, causes your skin to peel, and is not from being in the sun too long. Summary ? A rash is a change in the color of your skin. A rash can also change the way your skin feels. ? The goal of treatment is to stop the itching and keep the rash from spreading. ? Take or apply htyq-ohi-menfcjl and prescription medicines only as told by your doctor. ? Contact a doctor if you have new symptoms or symptoms that get worse. ? Keep all follow-up visits as told by your doctor. This is important. This information is not intended to replace advice given to you by your health care provider. Make sure you discuss any questions you have with your health care provider. Document Revised: 02/20/2022 Document Reviewed: 02/20/2022 [employer] Patient Education ? 2022 [employer]. Infectious Disease Rash, Adult A rash is a change in the color of your skin. A rash can also change the way your skin feels. There are many different conditions and factors that can cause a rash. Follow these instructions at home: The goal of treatment is to stop the itching and keep the rash from spreading. Watch for any changes in your symptoms. Let your doctor know about them. Follow these instructions to help with your condition: Medicine Take or apply zain-mte-kazyceb and prescription medicines only as told by your doctor. These (more content not included)... Normal [facility] Consent for Treatmenton 05-25 Consent for Treatment [id number] [facility] Physician Orderon 06-05-2023 Physician Order [id number]#1.00TIFF [facility] CHEMISTRYOrdered By: SYSTEM SYSTEM on 05-01-2023 Albumin [Mass/Vol] 3.8 g/dL Normal 3.3 - 5.0 gm/dL [facility] [place]isol Albumin/Globulin [Mass ratio] 1.1 {ratio} Normal 1.1 - 2.2 [facility] Rem[facility] ALP [Catalytic activity/Vol] 36 [iU]/d Normal 21 - 98 Int._Unit/ L [facility] ALT No additional P-5'-P [Catalytic activity/Vol] 22 [iU]/d Normal 6 - 46 Int._Unit/ L [facility] Anion gap [Moles/Vol] 13 mmol/L Normal 6 - 16 mEq/L [facility] AST [Catalytic activity/Vol] 22 [iU]/d Normal 5 - 43 Int._Unit/ L [facility] Bilirubin [Mass/Vol] 0.5 mg/dL Normal 0.0 - 1 .1 mg/dL [facility] Calcium [Mass/Vol] 9.7 mg/dL Normal 8.9 - 11. 1 mg/dL [facility] Chloride [Moles/Vol] 100 mmol/L Low 101 - 1 11 mmol/L [facility] CO2 [Moles/Vol] 27 mmol/L Normal 21 - 31 mmol/L [facility] Cobalamin (Vitamin B12) [Mass/Vol] 216 pg/mL Normal 50 - 1500 pg/mL [facility] Creatinine [Mass/Vol] 1.0 mg/dL Normal 0.5 - 1.3 mg/dL [facility] Ferritin [Mass/Vol] 192 ng/mL Normal 11 - 307 ng/mL [facility] Comment on above: Interpretive Data: N ORMALS MEN <30 YRS 16-132 ng/mL MEN >30 YRS 8-338 ng/mL WOMEN (PREMEN) 6-104 ng/mL WOMEN (POSTMEN) 12-210 ng/mL Folate [Mass/Vol] 7.4 ng/mL Normal >=6.7ng/mL [facility] Rem[facility] GFR/1.73 sq M.predicted among non-blacks MDRD (S/P/Bld) [Vol rate/Area] 71 mL/min/1.73 m2 Normal >=59mL/min /1.73 m2 [facility] Chem S Comment on above: Interpretive Data: C hronic kidney disease could be indicated at eGFR's of less than 60 mL/min/1.73m2. Kidney failure is indicated at less than 15 mL/min/1.73m2. Globulin (S) [Mass/Vol] 3.6 g/dL Normal 1.4 - 4.0 gm/dL [facility] Glucose [Mass/Vol] 118 mg/dL Normal 55 - 199 mg/dL [facility] Comment on above: Interpretive Data: I f this glucose result represents a fasting glucose, interpretation should refer to the following reference range: 55-99 mg/dL Iron [Mass/Vol] 57 ug/dL Normal 35 - 153 mcg/dL [facility] Iron binding capacity [Mass/Vol] 323 ug/dL Normal 250 - 400 mcg/dL [facility] Iron saturation [Mass fraction] 18 % Low 20 - 50 % [facility] Potassium [Moles/Vol] 3.7 mmol/L Normal 3.5 - 5.3 mmol/L [facility] Protein [Mass/Vol] 7.4 g/dL Normal 6.0 - 7.8 gm/dL [facility] Sodium [Moles/Vol] 136 mmol/L Normal 135 - 145 mmol/L [facility] Transferrin [Mass/Vol] 231 mg/dL Normal 200 - 370 mg/dL [facility] Urea nitrogen [Mass/Vol] 13 mg/dL Normal 5 - 21 mg/dL [facility] Urea nitrogen/Creatinine [Mass ratio] 13 mg/mg Normal 10 - 20 [facility] HEMATOLOGYOrdered By: SYSTEM SYSTEM on 05-01-2023 Basophils/100 WBC (Bld) 0.3 % Normal 0.0 - 2.0 % [facility] Basophils/Leukocytes Auto (Bld) [Pure # fraction] 0.0 E9/L Normal 0.0 - 0.2 E9/L [facility] Eosinophils/100 WBC (Bld) 1.6 % Normal 0.0 - 8.0 % [facility] Eosinophils/Leukocyt es Auto (Bld) [Pure # fraction] 0.1 E9/L Normal 0.0 - 0.5 E9/L [facility] Lymphocytes/100 WBC (Bld) 26.6 % Normal 14.0 - 50.0 % [facility] Lymphocytes/Leukocyt es Auto (Bld) [Pure # fraction] 2.1 E9/L Normal 1.0 - 4.0 E9/L [facility] Monocytes/100 WBC (Bld) 5.1 % Normal 4.0 - 14.0 % [facility] Monocytes/Leukocytes Auto (Bld) [Pure # fraction] 0.4 E9/L Normal 0.2 - 1.0 E9/L [facility] Neutrophils/100 WBC (Bld) 66.4 % Normal 36.0 - 75.0 % [facility] Neutrophils/Leukocyt es Auto (Bld) [Pure # fraction] 5.1 E9/L Normal 2.0 - 7.5 E9/L [facility] HEMATOLOGYOrdered By: Kayla Holguin on 05-01-2023 Erythrocyte distribution width (RBC) [Ratio] 14.4 % High 10.9 - 14.2 % [facility] Hematocrit (Bld) [Volume fraction] 38.7 % Normal 34.0 - 46.0 % [facility] Hemoglobin (Bld) [Mass/Vol] 13.2 g/dL Normal 12.0 - 16.0 gm/dL [facility] MCH (RBC) [Entitic mass] 30.9 pg Normal 27.0 - 34.0 pg [facility] MCHC (RBC) [Mass/Vol] 34.2 g/dL Normal 31.4 - 36.0 gm/dL [facility] MCV (RBC) [Entitic vol] 90.5 fL Normal 80.0 - 100.0 fL [facility] Platelet mean volume (Bld) [Entitic vol] 8.6 fL Normal 6.4 - 10.8 fL [facility] Platelets (Bld) [#/Vol] 304.0 E9/L Normal 150.0 - 500.0 E9/L [facility] RBC (Bld) [#/Vol] 4.3 E12/L Normal 4.3 - 5.9 E12/L [facility] WBC corrected for nucl RBC Auto (Bld) [#/Vol] 7.7 E9/L Normal 4.0 - 11.0 E9/L [facility] CHEMISTRYOrdered By: SYSTEM SYSTEM on 02-05-2023 Albumin [Mass/Vol] 4.1 g/dL Normal 3.3 - 5.0 gm/dL [facility] [place]isol Albumin/Globulin [Mass ratio] 1.1 {ratio} Normal 1.1 - 2.2 [facility] Rem[facility] ALP [Catalytic activity/Vol] 43 [iU]/d Normal 21 - 98 Int._Unit/ L [facility] Rem[facility] ALT No additional P-5'-P [Catalytic activity/Vol] 26 [iU]/d Normal 6 - 46 Int._Unit/ L [facility] Anion gap [Moles/Vol] 11 mmol/L Normal 6 - 16 mEq/L [facility] AST [Catalytic activity/Vol] 19 [iU]/d Normal 5 - 43 Int._Unit/ L [facility] Bilirubin [Mass/Vol] 0.6 mg/dL Normal 0.0 - 1 .1 mg/dL [facility] Calcium [Mass/Vol] 9.5 mg/dL Normal 8.9 - 11. 1 mg/dL [facility] Chloride [Moles/Vol] 97 mmol/L Low 101 - 1 11 mmol/L [facility] CO2 [Moles/Vol] 30 mmol/L Normal 21 - 31 mmol/L [facility] Cobalamin (Vitamin B12) [Mass/Vol] 205 pg/mL Normal 50 - 1500 pg/mL [facility] Creatinine [Mass/Vol] 1.0 mg/dL Normal 0.5 - 1.3 mg/dL [facility] Ferritin [Mass/Vol] 257 ng/mL Normal 11 - 307 ng/mL [facility] Folate [Mass/Vol] 6.3 ng/mL Low >=6.7ng/mL [facility] GFR/1.73 sq M.predicted among non-blacks MDRD (S/P/Bld) [Vol rate/Area] 71 mL/min/1.73 m2 Normal >=59mL/min /1.73 m2 [facility] Chem S Globulin (S) [Mass/Vol] 3.7 g/dL Normal 1.4 - 4.0 gm/dL [facility] Glucose [Mass/Vol] 108 mg/dL Normal 55 - 199 mg/dL [facility] Iron [Mass/Vol] 55 ug/dL Normal 35 - 153 mcg/dL [facility] Iron binding capacity [Mass/Vol] 331 ug/dL Normal 250 - 400 mcg/dL [facility] Iron saturation [Mass fraction] 17 % Low 20 - 50 % [facility] Potassium [Moles/Vol] 3.2 mmol/L Low 3.5 - 5.3 mmol/L [facility] Protein [Mass/Vol] 7.8 g/dL Normal 6.0 - 7.8 gm/dL [facility] Sodium [Moles/Vol] 135 mmol/L Normal 135 - 145 mmol/L [facility] Transferrin [Mass/Vol] 236 mg/dL Normal 200 - 370 mg/dL [facility] Urea nitrogen [Mass/Vol] 14 mg/dL Normal 5 - 21 mg/dL [facility] Urea nitrogen/Creatinine [Mass ratio] 14 mg/mg Normal 10 - 20 [facility] HEMATOLOGYOrdered By: SYSTEM SYSTEM on 02-05-2023 Basophils/100 WBC (Bld) 0.9 % Normal 0.0 - 2.0 % [facility] Basophils/Leukocytes Auto (Bld) [Pure # fraction] 0.1 E9/L Normal 0.0 - 0.2 E9/L [facility] Eosinophils/100 WBC (Bld) 1.6 % Normal 0.0 - 8.0 % [facility] Eosinophils/Leukocyt es Auto (Bld) [Pure # fraction] 0.1 E9/L Normal 0.0 - 0.5 E9/L [facility] Lymphocytes/100 WBC (Bld) 29.1 % Normal 14.0 - 50.0 % [facility] Lymphocytes/Leukocyt es Auto (Bld) [Pure # fraction] 2.1 E9/L Normal 1.0 - 4.0 E9/L [facility] Monocytes/100 WBC (Bld) 5.2 % Normal 4.0 - 14.0 % [facility] Monocytes/Leukocytes Auto (Bld) [Pure # fraction] 0.4 E9/L Normal 0.2 - 1.0 E9/L [facility] Neutrophils/100 WBC (Bld) 63.2 % Normal 36.0 - 75.0 % [facility] Neutrophils/Leukocyt es Auto (Bld) [Pure # fraction] 4.6 E9/L Normal 2.0 - 7.5 E9/L [facility] HEMATOLOGYOrdered By: Lucille Almeida on 02-05-2023 Erythrocyte distribution width (RBC) [Ratio] 14.2 % Normal 10.9 - 14.2 % [facility] Hematocrit (Bld) [Volume fraction] 41.4 % Normal 34.0 - 46.0 % [facility] Hemoglobin (Bld) [Mass/Vol] 14.2 g/dL Normal 12.0 - 16.0 gm/dL [facility] MCH (RBC) [Entitic mass] 31.7 pg Normal 27.0 - 34.0 pg [facility] MCHC (RBC) [Mass/Vol] 34.4 g/dL Normal 31.4 - 36.0 gm/dL [facility] MCV (RBC) [Entitic vol] 92.2 fL Normal 80.0 - 100.0 fL [facility] Platelet mean volume (Bld) [Entitic vol] 9.2 fL Normal 6.4 - 10.8 fL [facility] Platelets (Bld) [#/Vol] 334.0 E9/L Normal 150.0 - 500.0 E9/L [facility] RBC (Bld) [#/Vol] 4.5 E12/L Normal 4.3 - 5.9 E12/L [facility] WBC corrected for nucl RBC Auto (Bld) [#/Vol] 7.3 E9/L Normal 4.0 - 11.0 E9/L [facility] CHEMISTRYOrdered By: SYSTEM SYSTEM on 12-30-2022 Albumin [Mass/Vol] 3.6 g/dL Normal 3.3 - 5.0 gm/dL [facility] Remisol Albumin/Globulin [Mass ratio] 1.3 {ratio} Normal 1.1 - 2.2 [facility] ALP [Catalytic activity/Vol] 33 [iU]/d Normal 21 - 98 Int._Unit/ L [facility] ALT No additional P-5'-P [Catalytic activity/Vol] 17 [iU]/d Normal 6 - 46 Int._Unit/ L [facility] Anion gap [Moles/Vol] 13 mmol/L Normal 6 - 16 mEq/L [facility] AST [Catalytic activity/Vol] 19 [iU]/d Normal 5 - 43 Int._Unit/ L [facility] Bilirubin [Mass/Vol] 0.5 mg/dL Normal 0.0 - 1 .1 mg/dL [facility] Bilirubin.direct [Mass/Vol] 0.1 mg/dL Normal 0.1 - 0.4 mg/dL [facility] Bilirubin.indirect [Mass or moles/Vol] 0.4 mg/dL Normal 0.1 - 0.9 mg/dL [facility] Calcium [Mass/Vol] 9.4 mg/dL Normal 8.9 - 11. 1 mg/dL [facility] Chloride [Moles/Vol] 101 mmol/L Normal 101 - 1 11 mmol/L [facility] CO2 [Moles/Vol] 26 mmol/L Normal 21 - 31 mmol/L [facility] Creatinine [Mass/Vol] 0.9 mg/dL Normal 0.5 - 1.3 mg/dL [facility] GFR/1.73 sq M.predicted among non-blacks MDRD (S/P/Bld) [Vol rate/Area] 80 mL/min/1.73 m2 Normal >=59mL/min /1.73 m2 [facility] [place] Globulin (S) [Mass/Vol] 2.7 g/dL Normal 1.4 - 4.0 gm/dL [facility] Glucose [Mass/Vol] 96 mg/dL Normal 55 - 199 mg/dL [facility] Lipase [Catalytic activity/Vol] 26 U/L Normal 13 - 58 unit/L [facility] Potassium [Moles/Vol] 3.5 mmol/L Normal 3.5 - 5.3 mmol/L [facility] Protein [Mass/Vol] 6.3 g/dL Normal 6.0 - 7.8 gm/dL [facility] Sodium [Moles/Vol] 136 mmol/L Normal 135 - 145 mmol/L [facility] Urea nitrogen [Mass/Vol] 13 mg/dL Normal 5 - 21 mg/dL [facility] Urea nitrogen/Creatinine [Mass ratio] 14 mg/mg Normal 10 - 20 [facility] CHEMISTRYOrdered By: Migdalia Guerrero on 12-30-2022 Lactate [Mass/Vol] 1.6 mmol/L Normal 0.5 - 2.2 mmol/L [facility] Troponin I.cardiac [Mass/Vol] 2.90 pg/mL Low 10.10 - 27.10 pg/mL [facility] HEMATOLOGYOrdered By: SYSTEM SYSTEM on 12-30-2022 Basophils/100 WBC (Bld) 1.2 % Normal 0.0 - 2.0 % [facility] Basophils/Leukocytes Auto (Bld) [Pure # fraction] 0.1 E9/L Normal 0.0 - 0.2 E9/L [facility] Eosinophils/100 WBC (Bld) 1.9 % Normal 0.0 - 8.0 % [facility] Eosinophils/Leukocyt es Auto (Bld) [Pure # fraction] 0.1 E9/L Normal 0.0 - 0.5 E9/L [facility] Lymphocytes/100 WBC (Bld) 25.8 % Normal 14.0 - 50.0 % [facility] Lymphocytes/Leukocyt es Auto (Bld) [Pure # fraction] 1.9 E9/L Normal 1.0 - 4.0 E9/L [facility] Monocytes/100 WBC (Bld) 6.7 % Normal 4.0 - 14.0 % [facility] Monocytes/Leukocytes Auto (Bld) [Pure # fraction] 0.5 E9/L Normal 0.2 - 1.0 E9/L [facility] Neutrophils/100 WBC (Bld) 64.4 % Normal 36.0 - 75.0 % [facility] Neutrophils/Leukocyt es Auto (Bld) [Pure # fraction] 4.8 E9/L Normal 2.0 - 7.5 E9/L [facility] HEMATOLOGYOrdered By: Anne Marie Tirado on 12-30-2022 Erythrocyte distribution width (RBC) [Ratio] 14.9 % High 10.9 - 14.2 % [facility] Hematocrit (Bld) [Volume fraction] 38.1 % Normal 34.0 - 46.0 % [facility] Hemoglobin (Bld) [Mass/Vol] 12.8 g/dL Normal 12.0 - 16.0 gm/dL [facility] MCH (RBC) [Entitic mass] 30.6 pg Normal 27.0 - 34.0 pg [facility] MCHC (RBC) [Mass/Vol] 33.6 g/dL Normal 31.4 - 36.0 gm/dL [facility] MCV (RBC) [Entitic vol] 91.0 fL Normal 80.0 - 100.0 fL [facility] Platelet mean volume (Bld) [Entitic vol] 8.6 fL Normal 6.4 - 10.8 fL [facility] Platelets (Bld) [#/Vol] 256.0 E9/L Normal 150.0 - 500.0 E9/L [facility] RBC (Bld) [#/Vol] 4.2 E12/L Low 4.3 - 5.9 E12/L [facility] WBC corrected for nucl RBC Auto (Bld) [#/Vol] 7.5 E9/L Normal 4.0 - 11.0 E9/L [facility] URINALYSISOrdered By: Azalea Doyle on 12-30-2022 Bacteria LM Ql (Urine sed) Trace /HPF Normal Trace/HPF [facility]A Auto SS Bilirubin Ql (U) Negative (12/30/22 2:52 PM) Normal Negative [facility] UA Auto SS Clarity (U) Clear (12/30/22 2:52 PM) Normal Clear [facility]A Auto SS Color (U) Yellow (12/30/22 2:52 PM) Normal Yellow [facility] UA Auto SS Epithelial cells.squamous LM.HPF (Urine sed) [#/Area] 5-8 /HPF Normal 0-2/HPF [facility]A Auto SS Glucose Test strip (U) [Mass/Vol] Negative (12/30/22 2:52 PM) Normal Negative [facility]A Auto SS Hemoglobin Ql (U) 3+ *ABN* (12/30/22 2:52 PM) Invalid Interpretation Code Negative [facility] UA Auto SS Ketones (U) [Mass/Vol] Negative (12/30/22 2:52 PM) Normal Negative [facility] UA Auto SS [place].plasma/Lithi um.RBC (Bld) [Mass ratio] 4-20 /HPF Normal 0-3/HPF [facility]A Auto SS Mucus Ql (Urine sed) Trace (12/30/22 2:52 PM) Normal [facility] Auto SS Nitrite Ql (U) Negative (12/30/22 2:52 PM) Normal Negative [facility]A Auto SS pH (U) 5.5 *NA* (12/30/22 2:52 PM) Invalid Interpretation Code 5.0 - 9.0 [facility]A Auto SS Protein (U) [Mass/Vol] Negative (12/30/22 2:52 PM) Normal Negative [facility] [place] Auto SS Specific gravity (U) [Rel density] 1.020 *NA* (12/30/22 2:52 PM) Invalid Interpretation Code 1.005 - 1.030 [facility] Auto SS UA Spec Desc Clean Catch (12/30/22 2:52 PM) Normal [facility] [place] [facility] Auto SS Urobilinogen Qn (U) [id number] {Noelle'U}/dL Normal 0.0 - 1.0 EU/dL [facility]A Auto SS WBC Auto Ql (U) Negative (12/30/22 2:52 PM) Normal Negative [facility] Auto SS WBC LM.HPF (Urine sed) [#/Area] 0-5 /HPF Normal 0-5/HPF [facility] [place] [facility] Auto SS CHEMISTRYOrdered By: Lab ROP User on 12-10-2022 Glucose [Mass/Vol] 115 mg/dL High 55 - 99 mg/dL [facility] [place] Subsection POC Device SN [id number] Invalid Interpretation Code [facility] [place]OC Subsection POC User ID [id number] Invalid Interpretation Code [facility] [place] Subsection POC Username JIMBO KHAN Invalid Interpretation Code [facility] [place] Subsection CHEMISTRYOrdered By: SYSTEM SYSTEM on 10-24-2022 CRP [Mass/Vol] 1.0 mg/dL Normal <=1.9mg/dL [facility] Albumin [Mass/Vol] 4.1 g/dL Normal 3.3 - 5.0 gm/dL [facility] Albumin/Globulin [Mass ratio] 1.2 {ratio} Normal 1.1 - 2.2 [facility] ALP [Catalytic activity/Vol] 40 [iU]/d Normal 21 - 98 Int._Unit/ L [facility] ALT No additional P-5'-P [Catalytic activity/Vol] 21 [iU]/d Normal 6 - 46 Int._Unit/ L [facility] Anion gap [Moles/Vol] 9 mmol/L Normal 6 - 16 mEq/L [facility] AST [Catalytic activity/Vol] 20 [iU]/d Normal 5 - 43 Int._Unit/ L [facility] Bilirubin [Mass/Vol] 0.7 mg/dL Normal 0.0 - 1 .1 mg/dL [facility] Calcium [Mass/Vol] 9.7 mg/dL Normal 8.9 - 11. 1 mg/dL [facility] Chloride [Moles/Vol] 102 mmol/L Normal 101 - 1 11 mmol/L [facility] CO2 [Moles/Vol] 28 mmol/L Normal 21 - 31 mmol/L [facility] Creatinine [Mass/Vol] 1.0 mg/dL Normal 0.5 - 1.3 mg/dL [facility] Ferritin [Mass/Vol] 55 ng/mL Normal 11 - 307 ng/mL [facility] GFR/1.73 sq M.predicted among non-blacks MDRD (S/P/Bld) [Vol rate/Area] 71 mL/min/1.73 m2 Normal >=59mL/min /1.73 m2 [facility] Chem S Globulin (S) [Mass/Vol] 3.3 g/dL Normal 1.4 - 4.0 gm/dL [facility] Glucose [Mass/Vol] 93 mg/dL Normal 55 - 199 mg/dL [facility] Iron [Mass/Vol] 409 ug/dL High 35 - 153 mcg/dL [facility] Iron binding capacity [Mass/Vol] 325 ug/dL Normal 250 - 400 mcg/dL [facility] Iron saturation [Mass fraction] 126 % High 20 - 50 % [facility] Potassium [Moles/Vol] 3.4 mmol/L Low 3.5 - 5.3 mmol/L [facility] Protein [Mass/Vol] 7.4 g/dL Normal 6.0 - 7.8 gm/dL [facility] Sodium [Moles/Vol] 136 mmol/L Normal 135 - 145 mmol/L [facility] Transferrin [Mass/Vol] 232 mg/dL Normal 200 - 370 mg/dL [facility] Urea nitrogen [Mass/Vol] 12 mg/dL Normal 5 - 21 mg/dL [facility] Urea nitrogen/Creatinine [Mass ratio] 12 mg/mg Normal 10 - 20 [facility] COAGULATIONOrdered By: Riddhi Almeida on 10-24-2022 aPTT Coag (PPP) [Time] 35.7 s Normal 25.1 - 36.5 second(s) [facility] Auto [facility]ag INR Coag (PPP) [Relative time] 1.0 {INR} Invalid Interpretation Code [facility] Auto Coag Platelet function (closure time) collagen+EPINEPHrine induced (Bld) [Time] 105 s Normal 70 - 138 second(s) [facility] [place] [facility] PT Coag (PPP) [Time] 11.2 s Normal 9.4 - 1 2.5 second(s) [facility] [place] Auto Coag HEMATOLOGYOrdered By: Anne Marie Tirado on 10-24-2022 Sed Rate Automated 22 mm/h Normal 0 - 34 mm/hr [facility] Erythrocyte distribution width (RBC) [Ratio] 13.8 % Normal 10.9 - 14.2 % [facility] Hematocrit (Bld) [Volume fraction] 38.2 % Normal 34.0 - 46.0 % [facility] Hemoglobin (Bld) [Mass/Vol] 12.7 g/dL Normal 12.0 - 16.0 gm/dL [facility] MCH (RBC) [Entitic mass] 29.7 pg Normal 27.0 - 34.0 pg [facility] MCHC (RBC) [Mass/Vol] 33.2 g/dL Normal 31.4 - 36.0 gm/dL [facility] MCV (RBC) [Entitic vol] 89.3 fL Normal 80.0 - 100.0 fL [facility] Platelet mean volume (Bld) [Entitic vol] 8.5 fL Normal 6.4 - 10.8 fL [facility] Platelets (Bld) [#/Vol] 287.0 E9/L Normal 150.0 - 500.0 E9/L [facility] RBC (Bld) [#/Vol] 4.3 E12/L Normal 4.3 - 5.9 E12/L [facility] WBC corrected for nucl RBC Auto (Bld) [#/Vol] 6.6 E9/L Normal 4.0 - 11.0 E9/L [facility] HEMATOLOGYOrdered By: SYSTEM SYSTEM on 10-24-2022 Basophils/100 WBC (Bld) 0.4 % Normal 0.0 - 2.0 % [facility] Basophils/Leukocytes Auto (Bld) [Pure # fraction] 0.0 E9/L Normal 0.0 - 0.2 E9/L [facility] Eosinophils/100 WBC (Bld) 2.3 % Normal 0.0 - 8.0 % [facility] Eosinophils/Leukocyt es Auto (Bld) [Pure # fraction] 0.2 E9/L Normal 0.0 - 0.5 E9/L [facility] Lymphocytes/100 WBC (Bld) 27.8 % Normal 14.0 - 50.0 % [facility] Lymphocytes/Leukocyt es Auto (Bld) [Pure # fraction] 1.8 E9/L Normal 1.0 - 4.0 E9/L [facility] Monocytes/100 WBC (Bld) 5.6 % Normal 4.0 - 14.0 % [facility] Monocytes/Leukocytes Auto (Bld) [Pure # fraction] 0.4 E9/L Normal 0.2 - 1.0 E9/L [facility] Neutrophils/100 WBC (Bld) 63.9 % Normal 36.0 - 75.0 % [facility] Neutrophils/Leukocyt es Auto (Bld) [Pure # fraction] 4.2 E9/L Normal 2.0 - 7.5 E9/L [facility] CHEMISTRYOrdered By: SYSTEM SYSTEM on 10-06-2022 Albumin [Mass/Vol] 4.3 g/dL Normal 3.3 - 5.0 gm/dL [facility] Albumin/Globulin [Mass ratio] 1.2 {ratio} Normal 1.1 - 2.2 [facility] ALP [Catalytic activity/Vol] 42 [iU]/d Normal 21 - 98 Int._Unit/ L [facility] ALT No additional P-5'-P [Catalytic activity/Vol] 28 [iU]/d Normal 6 - 46 Int._Unit/ L [facility] Anion gap [Moles/Vol] 14 mmol/L Normal 6 - 16 mEq/L [facility] AST [Catalytic activity/Vol] 22 [iU]/d Normal 5 - 43 Int._Unit/ L [facility] Bilirubin [Mass/Vol] 0.4 mg/dL Normal 0.0 - 1 .1 mg/dL [facility] Calcium [Mass/Vol] 9.8 mg/dL Normal 8.9 - 11. 1 mg/dL [facility] Chloride [Moles/Vol] 99 mmol/L Low 101 - 1 11 mmol/L [facility] CO2 [Moles/Vol] 26 mmol/L Normal 21 - 31 mmol/L [facility] Cobalamin (Vitamin B12) [Mass/Vol] 246 pg/mL Normal 50 - 1500 pg/mL [facility] Creatinine [Mass/Vol] 0.9 mg/dL Normal 0.5 - 1.3 mg/dL [facility] Ferritin [Mass/Vol] 68 ng/mL Normal 11 - 307 ng/mL [facility] Folate [Mass/Vol] 7.8 ng/mL Normal >=6.7ng/mL [facility] GFR/1.73 sq M.predicted among non-blacks MDRD (S/P/Bld) [Vol rate/Area] 81 mL/min/1.73 m2 Normal >=59mL/min /1.73 m2 [facility] Chem S Globulin (S) [Mass/Vol] 3.6 g/dL Normal 1.4 - 4.0 gm/dL [facility] Glucose [Mass/Vol] 108 mg/dL Normal 55 - 199 mg/dL [facility] Iron [Mass/Vol] 70 ug/dL Normal 35 - 153 mcg/dL [facility] Iron binding capacity [Mass/Vol] 361 ug/dL Normal 250 - 400 mcg/dL [facility] Iron saturation [Mass fraction] 19 % Low 20 - 50 % [facility] Potassium [Moles/Vol] 3.2 mmol/L Low 3.5 - 5.3 mmol/L [facility] Protein [Mass/Vol] 7.9 g/dL High 6.0 - 7.8 gm/dL [facility] Sodium [Moles/Vol] 136 mmol/L Normal 135 - 145 mmol/L [facility] Transferrin [Mass/Vol] 258 mg/dL Normal 200 - 370 mg/dL [facility] Urea nitrogen [Mass/Vol] 11 mg/dL Normal 5 - 21 mg/dL [facility] Urea nitrogen/Creatinine [Mass ratio] 12 mg/mg Normal 10 - 20 [facility] HEMATOLOGYOrdered By: SYSTEM SYSTEM on 10-06-2022 Basophils/100 WBC (Bld) 0.8 % Normal 0.0 - 2.0 % [facility] Basophils/Leukocytes Auto (Bld) [Pure # fraction] 0.1 E9/L Normal 0.0 - 0.2 E9/L [facility] Eosinophils/100 WBC (Bld) 2.4 % Normal 0.0 - 8.0 % [facility] Eosinophils/Leukocyt es Auto (Bld) [Pure # fraction] 0.3 E9/L Normal 0.0 - 0.5 E9/L [facility] Lymphocytes/100 WBC (Bld) 31.1 % Normal 14.0 - 50.0 % [facility] Lymphocytes/Leukocyt es Auto (Bld) [Pure # fraction] 3.6 E9/L Normal 1.0 - 4.0 E9/L [facility] Monocytes/100 WBC (Bld) 5.1 % Normal 4.0 - 14.0 % [facility] Monocytes/Leukocytes Auto (Bld) [Pure # fraction] 0.6 E9/L Normal 0.2 - 1.0 E9/L [facility] Neutrophils/100 WBC (Bld) 60.6 % Normal 36.0 - 75.0 % [facility] Neutrophils/Leukocyt es Auto (Bld) [Pure # fraction] 7.0 E9/L Normal 2.0 - 7.5 E9/L [facility] HEMATOLOGYOrdered By: Arnav Spivey on 10-06-2022 Erythrocyte distribution width (RBC) [Ratio] 13.6 % Normal 10.9 - 14.2 % [facility] Hematocrit (Bld) [Volume fraction] 42.4 % Normal 34.0 - 46.0 % [facility] Hemoglobin (Bld) [Mass/Vol] 13.9 g/dL Normal 12.0 - 16.0 gm/dL [facility] MCH (RBC) [Entitic mass] 30.2 pg Normal 27.0 - 34.0 pg [facility] MCHC (RBC) [Mass/Vol] 32.8 g/dL Normal 31.4 - 36.0 gm/dL [facility] MCV (RBC) [Entitic vol] 92.0 fL Normal 80.0 - 100.0 fL [facility] Platelet mean volume (Bld) [Entitic vol] 9.7 fL Normal 6.4 - 10.8 fL [facility] Platelets (Bld) [#/Vol] 246.0 E9/L Normal 150.0 - 500.0 E9/L [facility] RBC (Bld) [#/Vol] 4.6 E12/L Normal 4.3 - 5.9 E12/L [facility] WBC corrected for nucl RBC Auto (Bld) [#/Vol] 11.5 E9/L High 4.0 - 11.0 E9/L [facility] CHEMISTRYOrdered By: SYSTEM SYSTEM on 08-14-2022 Cholesterol [Mass/Vol] 256 mg/dL High 120 - 200 mg/dL [facility] Cholesterol in HDL [Mass/Vol] 59 mg/dL Invalid Interpretation Code [facility] Cholesterol in LDL [Mass/Vol] 189 mg/dL High <=129mg/dL [facility] Cholesterol in VLDL [Mass/Vol] 28 mg/dL Normal 7 - 40 mg/dL [facility] Cobalamin (Vitamin B12) [Mass/Vol] 275 pg/mL Normal 50 - 1500 pg/mL [facility] Glucose [Mass/Vol] 121 mg/dL Normal 55 - 199 mg/dL [facility] Triglyceride [Mass/Vol] 138 mg/dL Normal <=149mg/dL [facility] CHEMISTRYOrdered By: Josse Oneill on 08-14-2022 HbA1c (Bld) [Mass fraction] 6.1 % High <=5.9% [facility] URINALYSISOrdered By: Virginia Oneill on 08-14-2022 Bilirubin Ql (U) Negative (08/14/22 9:47 AM) Normal Negative [facility]A Auto SS Clarity (U) Clear (08/14/22 9:47 AM) Normal Clear [facility] Auto SS Color (U) Yellow (08/14/22 9:47 AM) Normal Yellow [facility]A Auto SS Epithelial cells.squamous LM.HPF (Urine sed) [#/Area] 0-2 /HPF Normal 0-2/HPF [facility] Auto SS Glucose Test strip (U) [Mass/Vol] Negative (08/14/22 9:47 AM) Normal Negative [facility]A Auto SS Hemoglobin Ql (U) Negative (08/14/22 9:47 AM) Normal Negative [facility]A Auto SS Ketones (U) [Mass/Vol] Negative (08/14/22 9:47 AM) Normal Negative [facility] UA Auto SS [place].plasma/Lithi um.RBC (Bld) [Mass ratio] 0-3 /HPF Normal 0-3/HPF [facility]A Auto SS Nitrite Ql (U) Negative (08/14/22 9:47 AM) Normal Negative [facility] Auto SS pH (U) 6.5 *NA* (08/14/22 9:47 AM) Invalid Interpretation Code 5.0 - 9.0 [facility]A Auto SS Protein (U) [Mass/Vol] Negative (08/14/22 9:47 AM) Normal Negative [facility]A Auto SS Specific gravity (U) [Rel density] 1.025 *NA* (08/14/22 9:47 AM) Invalid Interpretation Code 1.005 - 1.030 [facility]A Auto SS UA Spec Desc Random Urine (08/14/22 9:47 AM) Normal [facility] Auto SS Urobilinogen Qn (U) [id number] {Noelle'U}/dL Normal 0.0 - 1.0 EU/dL [facility] Auto SS WBC Auto Ql (U) Negative (08/14/22 9:47 AM) Normal Negative [facility]A Auto SS WBC LM.HPF (Urine sed) [#/Area] 0-5 /HPF Normal 0-5/HPF [facility] Auto SS Comment on above: Result Comment: Urin e microscopic performed on unspun sample MICRO OTHER TESTSOrdered By: Inga Osamn on 06-17-2022 Influenzae A Ag Negative (06/17/22 7:35 PM) Normal Negative [facility] Influenzae B Ag Negative (06/17/22 7:35 PM) Normal Negative [facility] Rapid COV Int NEG Ctl Pass (06/17/22 7:35 PM) Normal [facility] Rapid COV Int POS Ctl Pass (06/17/22 7:35 PM) Normal [facility] SARS-CoV+SARS-CoV-2 (COVID-19) Ag IA.rapid Ql (Resp) Not Detected (06/17/22 7:35 PM) Normal Not Detected [facility] CHEMISTRYOrdered By: SYSTEM SYSTEM on 04-28-2022 Albumin [Mass/Vol] 3.7 g/dL Normal 3.3 - 5.0 gm/dL [facility] Albumin/Globulin [Mass ratio] 1.2 {ratio} Normal 1.1 - 2.2 [facility] ALP [Catalytic activity/Vol] 43 [iU]/d Normal 21 - 98 Int._Unit/ L [facility] ALT No additional P-5'-P [Catalytic activity/Vol] 16 [iU]/d Normal 6 - 46 Int._Unit/ L [facility] Anion gap [Moles/Vol] 13 mmol/L Normal 6 - 16 mEq/L [facility] AST [Catalytic activity/Vol] 21 [iU]/d Normal 5 - 43 Int._Unit/ L [facility] Bilirubin [Mass/Vol] 0.5 mg/dL Normal 0.0 - 1 .1 mg/dL [facility] Calcium [Mass/Vol] 9.1 mg/dL Normal 8.9 - 11. 1 mg/dL [facility] Chloride [Moles/Vol] 103 mmol/L Normal 101 - 1 11 mmol/L [facility] CO2 [Moles/Vol] 22 mmol/L Normal 21 - 31 mmol/L [facility] Creatinine [Mass/Vol] 0.8 mg/dL Normal 0.5 - 1.3 mg/dL [facility] Ferritin [Mass/Vol] 10 ng/mL Low 11 - 307 ng/mL [facility] GFR/1.73 sq M.predicted among blacks MDRD (S/P/Bld) [Vol rate/Area] mL/min/1.73 m2 Normal >=59mL/min /1.73 m2 [facility] Chem S GFR/1.73 sq M.predicted among non-blacks MDRD (S/P/Bld) [Vol rate/Area] mL/min/1.73 m2 Normal >=59mL/min /1.73 m2 [facility] Chem S Globulin (S) [Mass/Vol] 3.1 g/dL Normal 1.4 - 4.0 gm/dL [facility] Glucose [Mass/Vol] 101 mg/dL Normal 55 - 199 mg/dL [facility] Iron [Mass/Vol] 32 ug/dL Low 35 - 153 mcg/dL [facility] Iron binding capacity [Mass/Vol] 434 ug/dL High 250 - 400 mcg/dL [facility] Iron saturation [Mass fraction] 7 % Low 20 - 50 % [facility] Potassium [Moles/Vol] 3.9 mmol/L Normal 3.5 - 5.3 mmol/L [facility] Protein [Mass/Vol] 6.8 g/dL Normal 6.0 - 7.8 gm/dL [facility] Sodium [Moles/Vol] 134 mmol/L Low 135 - 145 mmol/L [facility] Transferrin [Mass/Vol] 310 mg/dL Normal 200 - 370 mg/dL [facility] Urea nitrogen [Mass/Vol] 12 mg/dL Normal 5 - 21 mg/dL [facility] Urea nitrogen/Creatinine [Mass ratio] 15 mg/mg Normal 10 - 20 [facility] HEMATOLOGYOrdered By: Lucille Almeida on 04-28-2022 Anisocytosis Ql (Bld) Present (04/28/22 5:47 PM) Normal [facility] Erythrocyte distribution width (RBC) [Ratio] 15.9 % High 10.9 - 14.2 % [facility] Hematocrit (Bld) [Volume fraction] 34.7 % Normal 34.0 - 46.0 % [facility] Hemoglobin (Bld) [Mass/Vol] 11.2 g/dL Low 12.0 - 16.0 gm/dL [facility] Hypochromia Auto Ql (Bld) Present (04/28/22 5:47 PM) Normal [facility] MCH (RBC) [Entitic mass] 24.1 pg Low 27.0 - 34.0 pg [facility] MCHC (RBC) [Mass/Vol] 32.2 g/dL Normal 31.4 - 36.0 gm/dL [facility] MCV (RBC) [Entitic vol] 74.9 fL Low 80.0 - 100.0 fL [facility] Microcytes Ql (Bld) Present (04/28/22 5:47 PM) Normal [facility] Morphology Juan Alberto (Bld) [Interp] See Morphology (04/28/22 5:47 PM) Normal [facility] Platelet mean volume (Bld) [Entitic vol] 9.6 fL Normal 6.4 - 10.8 fL [facility] Platelets (Bld) [#/Vol] 239.0 E9/L Normal 150.0 - 500.0 E9/L [facility] RBC (Bld) [#/Vol] 4.6 E12/L Normal 4.3 - 5.9 E12/L [facility] WBC corrected for nucl RBC Auto (Bld) [#/Vol] 5.4 E9/L Normal 4.0 - 11.0 E9/L [facility] HEMATOLOGYOrdered By: SYSTEM SYSTEM on 04-28-2022 Basophils/100 WBC (Bld) 1.4 % Normal 0.0 - 2.0 % [facility] Basophils/Leukocytes Auto (Bld) [Pure # fraction] 0.1 E9/L Normal 0.0 - 0.2 E9/L [facility] Eosinophils/100 WBC (Bld) 3.3 % Normal 0.0 - 8.0 % [facility] Eosinophils/Leukocyt es Auto (Bld) [Pure # fraction] 0.2 E9/L Normal 0.0 - 0.5 E9/L [facility] Lymphocytes/100 WBC (Bld) 39.3 % Normal 14.0 - 50.0 % [facility] Lymphocytes/Leukocyt es Auto (Bld) [Pure # fraction] 2.1 E9/L Normal 1.0 - 4.0 E9/L [facility] Monocytes/100 WBC (Bld) 9.2 % Normal 4.0 - 14.0 % [facility] Monocytes/Leukocytes Auto (Bld) [Pure # fraction] 0.5 E9/L Normal 0.2 - 1.0 E9/L [facility] Neutrophils/100 WBC (Bld) 46.8 % Normal 36.0 - 75.0 % [facility] Neutrophils/Leukocyt es Auto (Bld) [Pure # fraction] 2.5 E9/L Normal 2.0 - 7.5 E9/L [facility] CHEMISTRYOrdered By: SYSTEM SYSTEM on 12-02-2021 Troponin I.cardiac [Mass/Vol] 3.40 pg/mL Low 10.10 - 27.10 pg/mL [facility] Anion gap [Moles/Vol] 10 mmol/L Normal 6 - 16 mEq/L [facility] Calcium [Mass/Vol] 9.2 mg/dL Normal 8.9 - 11. 1 mg/dL [facility] [place]isol Chloride [Moles/Vol] 108 mmol/L Normal 101 - 1 11 mmol/L [facility] [place] Remisol CO2 [Moles/Vol] 25 mmol/L Normal 21 - 31 mmol/L [facility] [place] Remisol Creatinine [Mass/Vol] 0.9 mg/dL Normal 0.5 - 1.3 mg/dL [facility] [place]isol GFR/1.73 sq M.predicted among blacks MDRD (S/P/Bld) [Vol rate/Area] mL/min/1.73 m2 Normal >=59mL/min /1.73 m2 [facility] [place] S GFR/1.73 sq M.predicted among non-blacks MDRD (S/P/Bld) [Vol rate/Area] mL/min/1.73 m2 Normal >=59mL/min /1.73 m2 [facility] [place] S Glucose [Mass/Vol] 183 mg/dL Normal 55 - 199 mg/dL [facility] [place] Magnesium [Mass/Vol] 1.8 mg/dL Normal 1.3 - 2 .4 mg/dL [facility] [place] Potassium [Moles/Vol] 4.1 mmol/L Normal 3.5 - 5.3 mmol/L [facility] [place]isol Sodium [Moles/Vol] 139 mmol/L Normal 135 - 145 mmol/L [facility] [place] [place] Troponin I.cardiac [Mass/Vol] 3.00 pg/mL Low 10.10 - 27.10 pg/mL [facility] [place] Urea nitrogen [Mass/Vol] 14 mg/dL Normal 5 - 21 mg/dL [facility] [place] Urea nitrogen/Creatinine [Mass ratio] 16 mg/mg Normal 10 - 20 [facility] [place] [place] CHEMISTRYOrdered By: Josse Farmer on 12-02-2021 Natriuretic peptide B (Bld) [Mass/Vol] 41 pg/mL Normal 5 - 80 pg/mL [facility] [place] [place] [facility] CHEMISTRYOrdered By: Ac Monroy on 12-02-2021 Glucose [Mass/Vol] 172 mg/dL High 55 - 99 mg/dL [facility] [place] Subsection Comment on above: Result Comment: Sin hussein RN/ POC Device SN [id number] Invalid Interpretation Code [facility] [place] Subsection POC User ID [id number] Invalid Interpretation Code [facility] [place] Subsection POC Username [email or web address] Invalid Interpretation Code [facility] [place] Subsection COAGULATIONOrdered By: Christine Tejeda on 12-02-2021 aPTT Coag (PPP) [Time] 27.8 s Normal 25.1 - 36.5 second(s) [facility] INR Coag (PPP) [Relative time] 1.0 {INR} Invalid Interpretation Code [facility] PT Coag (PPP) [Time] 11.9 s Normal 10.2 - 12.9 second(s) [facility] HEMATOLOGYOrdered By: SYSTEM SYSTEM on 12-02-2021 Basophils/100 WBC (Bld) 0.4 % Normal 0.0 - 2.0 % [facility] Basophils/Leukocytes Auto (Bld) [Pure # fraction] 0.0 E9/L Normal 0.0 - 0.2 E9/L [facility] Eosinophils/100 WBC (Bld) 2.9 % Normal 0.0 - 8.0 % [facility] Eosinophils/Leukocyt es Auto (Bld) [Pure # fraction] 0.2 E9/L Normal 0.0 - 0.5 E9/L [facility] Lymphocytes/100 WBC (Bld) 36.1 % Normal 14.0 - 50.0 % [facility] Lymphocytes/Leukocyt es Auto (Bld) [Pure # fraction] 2.1 E9/L Normal 1.0 - 4.0 E9/L [facility] Monocytes/100 WBC (Bld) 3.7 % Low 4.0 - 14.0 % [facility] Monocytes/Leukocytes Auto (Bld) [Pure # fraction] 0.2 E9/L Normal 0.2 - 1.0 E9/L [facility] Neutrophils/100 WBC (Bld) 56.9 % Normal 36.0 - 75.0 % [facility] Neutrophils/Leukocyt es Auto (Bld) [Pure # fraction] 3.3 E9/L Normal 2.0 - 7.5 E9/L [facility] HEMATOLOGYOrdered By: Virginia Farmer on 12-02-2021 Erythrocyte distribution width (RBC) [Ratio] 16.3 % High 10.9 - 14.2 % [facility] Hematocrit (Bld) [Volume fraction] 38.5 % Normal 34.0 - 46.0 % [facility] Hemoglobin (Bld) [Mass/Vol] 12.9 g/dL Normal 12.0 - 16.0 gm/dL [facility] MCH (RBC) [Entitic mass] 28.0 pg Normal 27.0 - 34.0 pg [facility] MCHC (RBC) [Mass/Vol] 33.6 g/dL Normal 31.4 - 36.0 gm/dL [facility] MCV (RBC) [Entitic vol] 83.5 fL Normal 80.0 - 100.0 fL [facility] Platelet mean volume (Bld) [Entitic vol] 9.0 fL Normal 6.4 - 10.8 fL [facility] Platelets (Bld) [#/Vol] 240.0 E9/L Normal 150.0 - 500.0 E9/L [facility] RBC (Bld) [#/Vol] 4.6 E12/L Normal 4.3 - 5.9 E12/L [facility] WBC corrected for nucl RBC Auto (Bld) [#/Vol] 5.9 E9/L Normal 4.0 - 11.0 E9/L [facility] [place] [facility] CHEMISTRYOrdered By: SYSTEM SYSTEM on 11-28-2021 Anion gap [Moles/Vol] 13 mmol/L Normal 6 - 16 mEq/L [facility] Calcium [Mass/Vol] 9.4 mg/dL Normal 8.9 - 11. 1 mg/dL [facility] Chloride [Moles/Vol] 104 mmol/L Normal 101 - 1 11 mmol/L [facility] CO2 [Moles/Vol] 24 mmol/L Normal 21 - 31 mmol/L [facility] Creatinine [Mass/Vol] 1.0 mg/dL Normal 0.5 - 1.3 mg/dL [facility] GFR/1.73 sq M.predicted among blacks MDRD (S/P/Bld) [Vol rate/Area] mL/min/1.73 m2 Normal >=59mL/min /1.73 m2 [facility] [place] S GFR/1.73 sq M.predicted among non-blacks MDRD (S/P/Bld) [Vol rate/Area] 60 mL/min/1.73 m2 Normal >=59mL/min /1.73 m2 [facility] [place] Chem S Glucose [Mass/Vol] 109 mg/dL Normal 55 - 199 mg/dL [facility] Potassium [Moles/Vol] 3.5 mmol/L Normal 3.5 - 5.3 mmol/L [facility] Sodium [Moles/Vol] 137 mmol/L Normal 135 - 145 mmol/L [facility] Urea nitrogen [Mass/Vol] 10 mg/dL Normal 5 - 21 mg/dL [facility] Urea nitrogen/Creatinine [Mass ratio] 10 mg/mg Normal 10 - 20 [facility] HEMATOLOGYOrdered By: SYSTEM SYSTEM on 11-28-2021 Basophils/100 WBC (Bld) 1.2 % Normal 0.0 - 2.0 % [facility] Basophils/Leukocytes Auto (Bld) [Pure # fraction] 0.1 E9/L Normal 0.0 - 0.2 E9/L [facility] Eosinophils/100 WBC (Bld) 2.7 % Normal 0.0 - 8.0 % [facility] Eosinophils/Leukocyt es Auto (Bld) [Pure # fraction] 0.2 E9/L Normal 0.0 - 0.5 E9/L [facility] Lymphocytes/100 WBC (Bld) 41.1 % Normal 14.0 - 50.0 % [facility] Lymphocytes/Leukocyt es Auto (Bld) [Pure # fraction] 3.1 E9/L Normal 1.0 - 4.0 E9/L [facility] Monocytes/100 WBC (Bld) 5.4 % Normal 4.0 - 14.0 % [facility] Monocytes/Leukocytes Auto (Bld) [Pure # fraction] 0.4 E9/L Normal 0.2 - 1.0 E9/L [facility] Neutrophils/100 WBC (Bld) 49.6 % Normal 36.0 - 75.0 % [facility] Neutrophils/Leukocyt es Auto (Bld) [Pure # fraction] 3.8 E9/L Normal 2.0 - 7.5 E9/L [facility] HEMATOLOGYOrdered By: Harini blankenship on 11-28-2021 Erythrocyte distribution width (RBC) [Ratio] 15.9 % High 10.9 - 14.2 % [facility] Hematocrit (Bld) [Volume fraction] 39.3 % Normal 34.0 - 46.0 % [facility] Hemoglobin (Bld) [Mass/Vol] 12.9 g/dL Normal 12.0 - 16.0 gm/dL [facility] MCH (RBC) [Entitic mass] 27.1 pg Normal 27.0 - 34.0 pg [facility] MCHC (RBC) [Mass/Vol] 32.7 g/dL Normal 31.4 - 36.0 gm/dL [facility] MCV (RBC) [Entitic vol] 82.6 fL Normal 80.0 - 100.0 fL [facility] Platelet mean volume (Bld) [Entitic vol] 9.4 fL Normal 6.4 - 10.8 fL [facility] Platelets (Bld) [#/Vol] 240.0 E9/L Normal 150.0 - 500.0 E9/L [facility] RBC (Bld) [#/Vol] 4.8 E12/L Normal 4.3 - 5.9 E12/L [facility] WBC corrected for nucl RBC Auto (Bld) [#/Vol] 7.6 E9/L Normal 4.0 - 11.0 E9/L [facility] CHEMISTRYOrdered By: SYSTEM SYSTEM on 08-29-2021 Anion gap [Moles/Vol] 12 mmol/L Normal 6 - 16 mEq/L [facility] Calcium [Mass/Vol] 9.2 mg/dL Normal 8.9 - 11. 1 mg/dL [facility] Chloride [Moles/Vol] 100 mmol/L Low 101 - 1 11 mmol/L [facility] CO2 [Moles/Vol] 25 mmol/L Normal 21 - 31 mmol/L [facility] Creatinine [Mass/Vol] 0.9 mg/dL Normal 0.5 - 1.3 mg/dL [facility] GFR/1.73 sq M.predicted among blacks MDRD (S/P/Bld) [Vol rate/Area] mL/min/1.73 m2 Normal >=59mL/min /1.73 m2 [facility] Chem S GFR/1.73 sq M.predicted among non-blacks MDRD (S/P/Bld) [Vol rate/Area] mL/min/1.73 m2 Normal >=59mL/min /1.73 m2 [facility] [place] S Glucose [Mass/Vol] 101 mg/dL Normal 55 - 199 mg/dL [facility] Potassium [Moles/Vol] 4.0 mmol/L Normal 3.5 - 5.3 mmol/L [facility] Sodium [Moles/Vol] 133 mmol/L Low 135 - 145 mmol/L [facility] Urea nitrogen [Mass/Vol] 15 mg/dL Normal 5 - 21 mg/dL [facility] Urea nitrogen/Creatinine [Mass ratio] 17 mg/mg Normal 10 - 20 [facility] HEMATOLOGYOrdered By: Misty Rojas on 08-29-2021 Band form neutrophils/100 WBC (Bld) 0 % Normal 0 - 10 % [facility] Basophils/100 WBC (Bld) 1 % Normal 0 - 2 % [facility] Basophils/Leukocytes Manual cnt (Bld) [Pure # fraction] 0.1 E9/L Normal 0.0 - 0.2 E9/L [facility] Eosinophils/100 WBC (Bld) 2 % Normal 0 - 8 % [facility] Eosinophils/Leukocyt es Manual cnt (Bld) [Pure # fraction] 0.2 E9/L Normal 0.0 - 0.5 E9/L [facility] Erythrocyte distribution width (RBC) [Ratio] 15.3 % High 10.9 - 14.2 % [facility] Hematocrit (Bld) [Volume fraction] 30.9 % Low 34.0 - 46.0 % [facility] Hemoglobin (Bld) [Mass/Vol] 11.9 g/dL Low 12.0 - 16.0 gm/dL [facility] Lymphocytes/100 WBC (Bld) 60 % High 14 - 50 % [facility] Lymphocytes/Leukocyt es Manual cnt (Bld) [Pure # fraction] 6.1 E9/L High 1.0 - 4.0 E9/L [facility] MCH (RBC) [Entitic mass] 32.6 pg Normal 27.0 - 34.0 pg [facility] MCHC (RBC) [Mass/Vol] 38.6 g/dL High 31.4 - 36.0 gm/dL [facility] MCV (RBC) [Entitic vol] 84.4 fL Normal 80.0 - 100.0 fL [facility] Monocytes/100 WBC (Bld) 6 % Normal 4 - 14 % [facility] Monocytes/Leukocytes Manual cnt (Bld) [Pure # fraction] 0.6 E9/L Normal 0.2 - 1.0 E9/L [facility] Morphology Juan Alberto (Bld) [Interp] Normal (08/29/21 7:48 PM) Normal [facility] Neutrophils/Leukocyt es Auto (Bld) [Pure # fraction] 3.0 E9/L Normal 2.0 - 7.5 E9/L [facility] Platelet mean volume (Bld) [Entitic vol] 9.4 fL Normal 6.4 - 10.8 fL [facility] Platelets (Bld) [#/Vol] 340.0 E9/L Normal 150.0 - 500.0 E9/L [facility] RBC (Bld) [#/Vol] 3.7 E12/L Low 4.3 - 5.9 E12/L [facility] Segmented neutrophils/100 WBC (Bld) 30 % Low 36 - 75 % [facility] Variant lymphocytes LM Ql (Bld) 1 % Invalid Interpretation Code [facility] WBC corrected for nucl RBC Auto (Bld) [#/Vol] 10.0 E9/L Normal 4.0 - 11.0 E9/L [facility] SEROLOGYOrdered By: Harini lyons on 08-29-2021 HCG.beta subunit (U) [Moles/Vol] Negative Normal [facility] URINALYSISOrdered By: Harini blankenship on 08-29-2021 Bacteria LM Ql (Urine sed) Trace /HPF Normal Trace/HPF [facility] Bilirubin Ql (U) Negative (08/29/21 7:48 PM) Normal Negative [facility] Clarity (U) Clear (08/29/21 7:48 PM) Normal Clear [facility] Color (U) Yellow (08/29/21 7:48 PM) Normal Yellow [facility] SS Epithelial cells.squamous LM.HPF (Urine sed) [#/Area] 0-2 /HPF Normal 0-2/HPF [facility] Glucose Test strip (U) [Mass/Vol] Negative (08/29/21 7:48 PM) Normal Negative [facility] Hemoglobin Ql (U) Negative (08/29/21 7:48 PM) Normal Negative [facility] Ketones (U) [Mass/Vol] Trace *NA* (08/29/21 7:48 PM) Invalid Interpretation Code Negative [facility] Auto SS [place].plasma/Lithi um.RBC (Bld) [Mass ratio] 0-3 /HPF Normal 0-3/HPF [facility] Nitrite Ql (U) Negative (08/29/21 7:48 PM) Normal Negative [facility] pH (U) 5.5 *NA* (08/29/21 7:48 PM) Invalid Interpretation Code 5.0 - 9.0 [facility] Protein (U) [Mass/Vol] Negative (08/29/21 7:48 PM) Normal Negative [facility] Specific gravity (U) [Rel density] 1.025 *NA* (08/29/21 7:48 PM) Invalid Interpretation Code 1.005 - 1.030 [facility] UA Spec Desc Clean Catch (08/29/21 7:48 PM) Normal [facility] [place] [facility] Urobilinogen Qn (U) [id number] {Noelle'U}/dL Normal 0.0 - 1.0 EU/dL [facility] Auto [facility] WBC Auto Ql (U) Negative (08/29/21 7:48 PM) Normal Negative [facility] WBC LM.HPF (Urine sed) [#/Area] 0-5 /HPF Normal 0-5/HPF [facility]A Auto SS ED Provider Noteson 03-09-20 ED Provider Notes Encounter Department : [facility]: EMERGENCY CENTER ED Provider Notes by Abhay Snyder MD at 03/09/2021 4:47 AM Author: JEM Shaverervice: -Author Type: ED Physician Filed: 03/09/2021 5:29 AMDate of Service: 03/09/2021 4:47 AMStatus: Signed Assistant Program Director: Abhay Snyder MD (ED Physician) CHIEF COMPLAINT Chief Complaint Patient presents with -Burning With Urination JARED [place] is a 45 y.o. female who presents via EMS for dysuria with reported blood in the urine started around 5 hours ago. Patient states she felt like she may have had a urinary tract infection a week ago at which time she had a urinalysis performed by PCP but was never called with the results. 5 days ago she started having dysuria. She denies nausea, vomiting, fevers, flank pain, abdominal pain. REVIEW OF SYSTEMS Review of Systems Constitutional: Negative for weight loss. HENT: Negative for nosebleeds. Eyes: Negative for photophobia. Respiratory: Negative for sputum production. Cardiovascular: Negative for claudication. Gastrointestinal: Negative for constipation. Genitourinary: Negative for flank pain. Musculoskeletal: Negative for myalgias. Skin: Negative for itching. Neurological: Negative for tremors. Endo/Heme/Allergies: Negative for polydipsia. PAST MEDICAL HISTORY/FAMILY HISTORY Past Medical History: DiagnosisDate -Bladder prolapse, female, acquired -Fibromyalgia -Heart palpitations -Hypertension -UTI (urinary tract infection) SOCIAL HISTORY Social History Socioeconomic History -Marital status: Spouse name:None -Number of children:None -Years of education:None -Highest education level:None Occupational History -None Tobacco Use -Smoking status:Former Smoker Packs/day:1.00 Years:30.00 Pack years:30.00 Types:Cigarettes Quit date:2019 Years since quittin.7 -Smokeless tobacco:Never Used Vaping Use -Vaping Use:Never used Substance and Sexual Activity -Alcohol use:Not Currently -Drug use:Not Currently -Sexual activity:None Other TopicsConcern -None Social History Narrative -None Social Determinants of Health Financial Resource Strain: -Difficulty of Paying Living Expenses: Not on file Food Insecurity: -Worried About Running Out of Food in the Last Year: Not on file -Ran Out of Food in the Last Year: Not on file Transportation Needs: -Lack of Transportation (Medical): Not on file -Lack of Transportation (Non-Medical): Not on file Physical Activity: -Days of Exercise per Week: Not on file -Minutes of Exercise per Session: Not on file Stress: -Feeling of Stress : Not on file Social Connections: -Frequency of Communication with Friends and Family: Not on file -Frequency of Social Gatherings with Friends and Family: Not on file -Attends Baptism Services: Not on file -Active Member of Clubs or Organizations: Not on file -Attends Club or Organization Meetings: Not on file -Marital Status: Not on file Intimate Partner Violence: -Fear of Current or Ex-Partner: Not on file -Emotionally Abused: Not on file -Physically Abused: Not on file -Sexually Abused: Not on file Housing Stability: -Unable to Pay for Housing in the Last Year: Not on file -Number of Places Lived in the Last Year: Not on file -Unstable Housing in the Last Year: Not on file SURGICAL HISTORY Past Surgical History: ProcedureLateralityDate -BACK [id number] -TONSILLECTOMY CURRENT MEDICATIONS Outpatient Medications Marked as Taking for the 03/09/21 encounter (Hospital Encounter) MedicationSigDispenseRefill -B-complex with vitamin C tabletTake 1 tablet by mouth daily. -DULoxetine (CYMBALTA) 60 mg delayed-release capsuleTake 90 mg by mouth daily. -FLUoxetine (PROZAC) 10 mg capsuleTake 30 mg by mouth daily. -hydroCHLOROthiazide (HYDRODIURIL) 25 mg tabletTake 25 mg by mouth daily. -ibuprofen (MOTRIN) 800 mg tabletTake 800 mg by mouth every 8 hours as needed for Pain or Fever. -lisinopriL (PRINIVIL) 10 mg tabletTake 10 mg by mouth daily. -loratadine (CLARITIN) 10 mg tabletTake 10 mg by mouth daily. -metFORMIN (GLUCOPHAGE) 500 mg tabletTake 500 mg by mouth 2 times a day (with meals). -pantoprazole (PROTONIX) 20 mg enteric coated tabletTake 40 mg by mouth daily. -propranoloL (INDERAL) 10 mg tabletTake 10 mg by mouth 3 times a day. -rosuvastatin (CRESTOR) 10 mg tabletTake 10 mg by mouth daily. -traZODone (DESYREL) 100 mg tabletTake 100 mg by mouth at bedtime. ALLERGIES Allergies AllergenReactions -Sulfa (Sulfonamide Antibiotics)Swelling my tongue swells up PHYSICAL EXAM ED Triage Vitals [03/09/21 0444] BP126/82 Temp98.7 ?F (37.1 ?C) Pulse80 Resp20 MrF2889 % Nnkiew184 lb (133.8 kg) Chris Coma Scale Score15 BMI (Calculated)49.2 Vitals reviewed. Physical Exam Constitutional: Appearance: Normal appearance. HENT: Head: Normocephalic and atraumatic. Nose: Nose normal. Mouth/Throat: Mouth: Muco (more content not included)... Normal [facility] URINE CULTURE, CONDITIONALon 10-16-2021 BILIRUBIN, UA Negative Normal Negative [facility] Comment on above: Performed By: #### L [id number], [id number], [id number] #### [place] [id number] [facility] BLOOD, UA 3+ mg/dL Abnormal Negative [facility] Comment on above: Performed By: #### L [id number], [id number], [id number] #### [address] Clarity (U) Slightly Cloudy Abnormal [facility] Comment on above: Performed By: #### L [id number], [id number], [id number] #### [address] Color (U) Yellow Normal Yellow [facility] Comment on above: Performed By: #### L [id number], [id number], [id number] #### [address] GLUCOSE, UA Negative Normal Negative [facility] Comment on above: Performed By: #### L [id number], [id number], [id number] #### [address] KETONES, UA Negative Normal Negative [facility] Comment on above: Performed By: #### L [id number], [id number], [id number] #### [address] LEUKOCYTES, UA 3+ Isabell/uL Abnormal Negative [facility] Comment on above: Performed By: #### L [id number], [id number], [id number] #### [address] [id number] Nitrite Ql (U) Negative Normal Negative [facility] Comment on above: Performed By: #### L [id number], [id number], [id number] #### [address] pH (U) 6.0 [pH] Normal 5.0-8.0 [facility] Comment on above: Performed By: #### L [id number], [id number], [id number] #### [address] Protein (U) [Mass/Vol] 100 mg/dL Abnormal Negative [facility] Comment on above: Performed By: #### L [id number], [id number], [id number] #### [address] SPECIFIC GRAVITY, UA CATEGORY >1.030 Abnormal 1.010 - 1.025 [facility] Comment on above: Performed By: #### L [id number], [id number], [id number] #### [address] URINE CULTURE, CONDITIONAL Normal [facility] Comment on above: Result Comment: Rele ase to patient->Immediate Performed By: #### L [id number], [id number], [id number] #### [address] UROBILINOGEN, UA Normal Normal Normal [facility] Comment on above: Performed By: #### L [id number], [id number], [id number] #### [address] URINE CULTURE, CONDITIONAL, NOT PERFORMEDon 03-09-2021 URINE CULTURE, CONDITIONAL, NOT PERFORMED URINE CULTURE NOT PERFORMED Conditions not met for Urine Culture [facility] Comment on above: Order Comment: Relea se to patient->Immediate Performed By: #### L [id number], [id number], [id number] #### [address] URINE MICROSCOPIC REFLEX CUL TUREon 03-09-2021 Epithelial cells LM Ql (Urine sed) 5-9 Abnormal 0-3 [facility] Comment on above: Performed By: #### L [id number], [id number], [id number] #### [address] URINE BACTERIA 1+ /hpf Abnormal Negative [facility] Comment on above: Performed By: #### L [id number], [id number], [id number] #### [address] URINE MICROSCOPIC REFLEX CULTURE Normal [facility] Comment on above: Result Comment: Cult ure of the urine specimen was not completed as criteria were not met. Release to patient->Immediate Performed By: #### L [id number], [id number], [id number] #### [place] [id number] [facility] URINE RED BLOOD CELLS 10-20 Abnormal 0-3 [facility] Comment on above: Performed By: #### L [id number], [id number], [id number] #### [place] [id number] [facility] URINE WHITE BLOOD CELLS 5-9 Abnormal 0-3 [facility] Comment on above: Performed By: #### L [id number], [id number], [id number] #### [place] [id number] [facility] Gynecology Office/Clinic Not heri 02-15-2018 Gynecology Office/Clinic Note Chief Complaint Follow Up History of Present Illness Last Office Visit 08/17/2017: Vitamin B-12 deficiency: approximately 150 which is very low. We discussed with the patient that this can create neuro symptoms as well as psychiatric symptoms and that this needs to be addressed. We will begin her with thousand micrograms every week ?4 followed then by monthly thereafter. Patient will also be taking thousand micrograms daily by mouth and the plan is to repeat her B-12 level prior to her visit with us in the office. Because she lives a distance from the hospital I have requested on her prescription that either pharmacy or her physician's office a be able to give her the IM injection. Bladder pain: During the patient's ultrasound it was very obvious that she had significant bladder pain which was also found during her examination. 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 We have given her information on foods that will stimulate interstitial cystitis pain. Adenomyosis: Patient's ultrasound is consistent with adenomyosis and PCO as well as the patient's symptoms completely correlate. At the present time she is on progesterone to be given every 3 months if she does not have a menstrual cycle. I would definitely consider an endometrial biopsy as she is higher risk for endometrial cancer. Insulin resistance: Patient's labs show subtle signs of insulin resistance however patient is already on metformin and I would suspect that this improves it. The metformin could be increased up to 2000 mg daily to improve weight loss as well as her menstrual cycles.? Pelvic prolapse: Patient has a grade 2 cystocele as well as grade 1 uterine prolapse. Would consider robotic laparoscopic hysterectomy along with anterior repair and possible Floyd or paravaginal defect repair concomitantly. I'm recommending that patient reduce her weight would like to see her BMI below 40 to improve her overall postoperative results. Patient is also aware that her higher BMI increases her risks during surgery. Patient at this point will utilize a symptom tracking sheet for us to see how many of her symptoms are related to her menstrual cycle. I'm suspicious of not only adenomyosis but endometriosis due to some of the symptoms related to both bowel and bladder that are catamenial. She would no doubt benefit from prolapse surgery however I am highly suspicious that many of her bladder symptoms would still be present as I suspect she has an underlying chronic bladder pain syndrome and or endometriosis/adenomyosis. The plan at this point is to institute vitamin B 12 both IM as well as oral to improve her symptoms especially neuro symptoms and cyclic symptoms. We will reevaluate and follow-up in approximately 5-6 months in which at which time we will then discuss the possibility of a surgical intervention. [1] Physical Exam Additional Vitals No qualifying data available. Assessment/Plan Chronic bladder pain Deficiency of vitamin B12 Urinary frequency Urinary incontinence Urinary urgency Problem List/Past Medical History Ongoing Deficiency of vitamin B12 Historical Anxiety Depression Fibromyalgia HTN - Hypertension Procedure/Surgical History back surgery (2001), REMOVE TONSILS AND ADENOIDS. Medications Adipex-P 37.5 mg oral capsule, 0.5 tabs, Oral, Daily azelastine 137 mcg/inh (0.1%) nasal spray, 2 sprays, Nasal, BID Claritin, 10 mg, Daily, Not taking cyanocobalamin 1000 mcg oral tablet, 1000 mcg, 1 tabs, Oral, Daily, 3 refills cyanocobalamin 1000 mcg/mL injectable solution, 1000 mcg, 1 mL, Subcutaneous, qMonth Cymbalta, 30 mg, Oral hydroCHLOROthiazide 25 mg oral tablet, 25 mg, 1 tabs, Oral, Daily losartan 100 mg oral tablet, 100 mg, 1 tabs, Oral, Daily meclizine 12.5 mg oral tablet, 12.5 mg, 1 tabs, Oral, TID Medrol Dosepak, Not taking metFORMIN 500 mg oral tablet, 500 mg, 1 tabs, Oral, BID multivitamin, Daily Neurontin, 600 mg, Oral, BID omeprazole, 40 mg, Oral, Daily ProAir HFA, 2 puffs, QID Robaxin 500 mg oral tablet, 1000 mg, 2 tabs, Oral, QID rosuvastatin 40 mg oral tablet, 40 mg, 1 tabs, Oral, HS (at bedtime) triamcinolone 0.025% topical cream, 1 justine, Topical, TID Zofran 4 mg oral tablet, 4 mg, 1 tabs, Oral, q8hr Allergies sulfa drugs (tongue swells) Social History Alcohol Never Substance Abuse Denies All Tobacco Current every day smoker Family History Breast cancer: Grandmother (M). Hypertension 21-MAR-2016 18:09:58<$>: Mother. Thyroid disease: Mother. Diagnostic Results No qualifying data available. No qualifying data available. No qualifying data available. No qualifying data available.[1] Office Visit Note; Kosta Hernandez DO 08/17/2017 17:42 EDTElectronically Signed by July Jasso 02/11/18 15:32 EDT Kosta Vasques DO [facility] US Pelvis Limitedon 08-28-19 US Pelvis Limited EXAM(S) PREFORMED:Transvaginal pelvic ultrasound and limited abdominal pelvic ultrasound to check patient's bladder.INDICATIONS:Menorrha khushi with clots, urinary frequency/MELLY. Morbid obesityLMP: Patient states she thinks her last period is 06/26/2017Patient states her periods are very irregular, some months she misses her cycleUTERUS:[7.7 x 5.1 x 7.0 cmENDOMETRIAL THICKNESS: 7?10 millimeters?ill-definedLEFT OVARY: 2.8 x 1.9 x 2.6 cmLT FOLLICLE: Very tiny ill-defined follicles less than a centimeter in sizeRIGHT OVARY:[ 3.4 x 2.0 x 2.6 cm]RT FOLLICLE:[ Very tiny ill-defined follicles less than a centimeter in size]COMMENTS:Characteristic s of PCOSIMPRESSION:Anteverted heterogeneous uterus. There are no fibroids or masses visualized. There are multiple characteristics of adenomyosis such as asymmetrical myometrial thickening,] patchy foci of increased echogenicity, and a indistinct endo myometrial junction. The endometrial lining is ill-defined and measures between 7 and 10 mm. Is no increased blood flow to the endometrial lining to indicate a polyp.Bilateral ovaries are visualized both abdominally and vaginally but ill defined due to patient's body habitus. . There are no cyst or masses seen on the ovaries.There are images after the first report page, and a final report page following these images. The second report page is more accurate and has been revised.The patient emptied her bladder the time of her appointment, so a post void residual image was obtained. The post void residual was unremarkable and measure 1.4 mL.The patient wanted a post void after 30 minutes because she believes her bladder is her main issue. The post void residual after 30 minutes is 13.5 mL.The patient tolerated the procedure well and did not complain of any pain. Final Signed by: Kosta Hernandez DO (Electronic Signature): 08/27/2017 12:32 pmTranscribed by: [id number] DT/TM: 08/17/2017 4:01(If Report Is Signed, Electronically Signed in Other Vendor System) Normal [facility] US Transvaginalon 08-27-2017 US Transvaginal EXAM(S) PREFORMED:Transvaginal pelvic ultrasound and limited abdominal pelvic ultrasound to check patient's bladder.INDICATIONS:Menorrha khushi with clots, urinary frequency/MELLY. Morbid obesityLMP: Patient states she thinks her last period is 06/26/2017Patient states her periods are very irregular, some months she misses her cycleUTERUS:[7.7 x 5.1 x 7.0 cmENDOMETRIAL THICKNESS: 7?10 millimeters?ill-definedLEFT OVARY: 2.8 x 1.9 x 2.6 cmLT FOLLICLE: Very tiny ill-defined follicles less than a centimeter in sizeRIGHT OVARY:[ 3.4 x 2.0 x 2.6 cm]RT FOLLICLE:[ Very tiny ill-defined follicles less than a centimeter in size]COMMENTS:Characteristic s of PCOSIMPRESSION:Anteverted heterogeneous uterus. There are no fibroids or masses visualized. There are multiple characteristics of adenomyosis such as asymmetrical myometrial thickening,] patchy foci of increased echogenicity, and a indistinct endo myometrial junction. The endometrial lining is ill-defined and measures between 7 and 10 mm. Is no increased blood flow to the endometrial lining to indicate a polyp.Bilateral ovaries are visualized both abdominally and vaginally but ill defined due to patient's body habitus. . There are no cyst or masses seen on the ovaries.There are images after the first report page, and a final report page following these images. The second report page is more accurate and has been revised.The patient emptied her bladder the time of her appointment, so a post void residual image was obtained. The post void residual was unremarkable and measure 1.4 mL.The patient wanted a post void after 30 minutes because she believes her bladder is her main issue. The post void residual after 30 minutes is 13.5 mL.The patient tolerated the procedure well and did not complain of any pain. Final Signed by: Kosta Hernandez DO (Electronic Signature): 08/27/2017 12:32 pmTranscribed by: [email or web address] DT/TM: 08/17/2017 4:01(If Report Is Signed, Electronically Signed in Other Vendor System) Normal [facility] Gynecology Office/Clinic Not heri 08-17-2017 Gynecology Office/Clinic Note Chief Complaint Usn/lab resultsHistory of Present Illness Contraception Type: Vasectomy Last Menstrual Period: 06/10/17 Clotting with periods: Yes Heavy periods: Yes Irregular periods: Yes Painful periods: Yes Painful sex: Yes Pelvic pain: Yes Spotting: Yes Additional HPI details: 41y/o usn/lab results. Last visit c/o feeling a bulge. C/o urinary freq, urgency and some urinary incont. Hard to empty bladder especially if she is constipated. Cycles heavy changing q 35 mins super tampon for 3 days. + clots. Discussed ultrasound results with the patient as well as laboratory work and the following problems are being addressed: Vitamin B-12 deficiency: approximately 150 which is very low. We discussed with the patient that this can create neuro symptoms as well as psychiatric symptoms and that this needs to be addressed. We will begin her with thousand micrograms every week ?4 followed then by monthly thereafter. Patient will also be taking thousand micrograms daily by mouth and the plan is to repeat her B-12 level prior to her visit with us in the office. Because she lives a distance from the hospital I have requested on her prescription that either pharmacy or her physician's office a be able to give her the IM injection. Bladder pain: During the patient's ultrasound it was very obvious that she had significant bladder pain which was also found during her examination. 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 We have given her information on foods that will stimulate interstitial cystitis pain. Adenomyosis: Patient's ultrasound is consistent with adenomyosis and PCO as well as the patient's symptoms completely correlate. At the present time she is on progesterone to be given every 3 months if she does not have a menstrual cycle. I would definitely consider an endometrial biopsy as she is higher risk for endometrial cancer. Insulin resistance: Patient's labs show subtle signs of insulin resistance however patient is already on metformin and I would suspect that this improves it. The metformin could be increased up to 2000 mg daily to improve weight loss as well as her menstrual cycles.? Pelvic prolapse: Patient has a grade 2 cystocele as well as grade 1 uterine prolapse. Would consider robotic laparoscopic hysterectomy along with anterior repair and possible Floyd or paravaginal defect repair concomitantly. I'm recommending that patient reduce her weight would like to see her BMI below 40 to improve her overall postoperative results. Patient is also aware that her higher BMI increases her risks during surgery. Patient at this point will utilize a symptom tracking sheet for us to see how many of her symptoms are related to her menstrual cycle. I'm suspicious of not only adenomyosis but endometriosis due to some of the symptoms related to both bowel and bladder that are catamenial. She would no doubt benefit from prolapse surgery however I am highly suspicious that many of her bladder symptoms would still be present as I suspect she has an underlying chronic bladder pain syndrome and or endometriosis/adenomyosis. The plan at this point is to institute vitamin B 12 both IM as well as oral to improve her symptoms especially neuro symptoms and cyclic symptoms. We will reevaluate and follow-up in approximately 5-6 months in which at which time we will then discuss the possibility of a surgical intervention.Review of Systems Gastrointestinal Abdominal Pain: No Bloating: No Change in bowel habits: No Reflux/heartburn: No Urinary Nocturia: Yes Painful urination: Yes Urgency: Yes Urinary frequency: Yes Urinary Incontinence: YesPhysical Exam Vitals & Measurements BP: 138/70 HT: 163.9 cm WT: 124 kg BMI: 46.16 Additional Vitals Body Mass Index Measured: 46.16 kg/m2 BP Position/Location: Sitting, Right armAssessment/Plan Chronic bladder pain Deficiency of vitamin B12 Ordered: cyanocobalamin, 1 tabs, Oral, Daily, # 90 tabs, 3 Refill(s), Pharmacy: [id number] cyanocobalamin, 1 mL, Subcutaneous, qMonth, syringes for injection weekly x4 then monthly to be done in office or pharmacy, # 30 mL, 0 Refill(s), Pharmacy: [id number] Vitamin B12 Level Feeling of incomplete bladder emptying Ordered: Vitamin B12 Level Urinary frequency Ordered: Vitamin B12 Level Urinary incontinence Ordered: Vitamin B12 Level Urinary urgency Ordered: Vitamin B12 Level Orders: US Pelvis LimitedPhysician Comments [id number] consultation 40 minutes with over 50% in counselingProblem List/Past Medical History Ongoing Deficiency of vitamin B12 Historical Anxiety Depression Fibromyalgia HTN - HypertensionProcedure/Surgic al History back surgery (2001), REMOVE TONSILS AND ADENOIDS.Medications Adipex-P 37.5 mg oral capsule, 0.5 tabs, Oral, Daily azelastine 137 mcg/inh (0.1%) nasal spray, 2 sprays, Nasal, BID Claritin, 10 mg, Daily, Not taking cyanocobalamin 1000 mcg oral tablet, 1000 mcg, 1 tabs, Oral, Daily, 3 refills cyanocobalamin 1000 mcg/mL injectable solution, 1000 mcg, 1 mL, Subcutaneous, qMonth Cymbalta, 30 mg, Oral hydroCHLOROthiazide 25 mg oral tablet, 25 mg, 1 tabs, Oral, Daily losartan 100 mg oral tablet, 100 mg, 1 tabs, Oral, Daily meclizine 12.5 mg oral tablet, 12.5 mg, 1 tabs, Oral, TID Medrol Dosepak, Not taking metFORMIN 500 mg oral tablet, 500 mg, 1 tabs, Oral, BID multivitamin, Daily Neurontin, 600 mg, Oral, BID omeprazole, 40 mg, Oral, Daily ProAir HFA, 2 puffs, QID Robaxin 500 mg oral tablet, 1000 mg, 2 tabs, Oral, QID rosuvastatin 40 mg oral tablet, 40 mg, 1 tabs, Oral, HS (at bedtime) triamcinolone 0.025% topical cream, 1 justine, Topical, TID Zofran 4 mg oral tablet, 4 mg, 1 tabs, Oral, [id number] sulfa drugs (tongue swells)Social History Alcohol Never Substance Abuse Denies All Tobacco Current every day smokerFamily History Breast cancer: Grandmother (M). Hypertension 21-MAR-2016 18:09:58<$>: Mother. Thyroid disease: Mother.Diagnostic Results No qualifying data available. No qualifying data available. No qualifying data available. No qualifying data available.Electronically signed by Kosta Koch DO 08/17/17 18:20 EDT Normal [facility] C Urineon 07-19-2017 C Urine Order added by Mery nunez rule. Final50,000 cfu/ml Mixed gram positive lashell isolated.This urine contains 3 or more organisms which is inconsistent with clean catch collection. Consider the possibility of contamination during collection.No identification or susceptibility performed as results would be misleading Normal [facility] Comment on above: Performed By: #### U RC ####[facility] (DEFAULT)[address] [place] [id number] [address] .UA Microscp Aon 07-17-2017 UA Mucus Present Abnormal Absent [facility] Comment on above: Performed By: #### C [id number] ####[place] [id number] UA RBC Quant 0 /HPF Normal 0-5 [facility] Comment on above: Performed By: #### C [id number] ####[place] [address] UA Squepi Cells Quant 1 /HPF Normal 0-29 [facility] Comment on above: Performed By: #### C [id number] ####[place] [id number] UA WBC Quant 1 /HPF Normal 0-5 [facility] Comment on above: Performed By: #### C [id number] ####[place] [id number] Ambulatory Patient Education on 07-17-2017 Ambulatory Patient Education Patient Education MaterialsName: Kayla Montana Current Date: 07/17/2017 15:10:07 [place] 1975 following sheet(s) are the Patient Education Leaflets for Kayla Montana MOb/GynPelvic Organ Prolapse: Surgery for CystoceleCystocele occurs when the bladder prolapses (sags) into the vagina. The goal of surgery is to repair the problem. This will help relieve your symptoms. Your surgery may include 1 or more repairs. The surgical procedureCystocele can be treated with an anterior repair. This type of surgery is done through the vagina. The sagging bladder is moved back into its normal position. Sutures (stitches) are placed in tissue between the bladder and the vagina. This helps hold the bladder in place. In some cases, another type of surgery is done. It can help correct weakness in the front wall of the vagina. The vagina is attached to strong tissues in the side wall of the pelvis.Your incisionsDuring surgery, the doctor will reach your pelvic organs through the vagina or the abdomen. An incision may be made in the vaginal wall. Surgery through the abdomen may be done with a single incision made up and down (vertically) or across (transverse), or through several small incisions (called laparoscopy).Possible risks and complications of this surgery? Infection? Bleeding? Risks of anesthesia? Damage to nerves, muscles, or nearby pelvic structures? Blood clots? Prolapse of the pelvic organ or organs occurring again? [id number] [employer] [place] [address]. All rights reserved. This information is not intended as a substitute for professional medical care. Always follow your healthcare professional's instructions.UrologyStress Urinary Incontinence: Having Retropubic Suspension SurgeryTo help treat stress urinary incontinence (MELLY), your surgeon may perform a procedure called retropubic suspension. It is done by making an incision in the lower part of your belly (abdomen). During this surgery, the surgeon puts stitches through the tissue next to the vagina to help support the urethra and bladder firmly in place. This helps keep the urethra closed to prevent urine leakage. Your surgery will take about 2 hour(s). You will be asked to do some things at home to prepare for surgery. Below are guidelines to help you get ready. If you have any questions, call your nurse or doctor.How should I prepare for surgery?The weeks before surgery? Have any tests that your doctor orders.? Tell your doctor about aspirin and other medicines, vitamins, or herbs you take. Ask if you should stop taking them before surgery.? Stop smoking to help reduce your risks during surgery.? If you have been given any prescriptions to fill, do this before surgery.The night before surgery? You may be asked to give yourself an enema. This cleans out your bowels for surgery. You'll be told how to do it.? Follow any directions you are given for taking medicines and for not eating or drinking before surgery.The day of surgery Arrive at the hospital a few hours before surgery as directed. Have someone drive you there who can also stay during the surgery, and drive you home. At the hospital, your temperature and blood pressure will be taken. In some cases, tests may be done. Then, you will receive one or more IV (intravenous) lines. These lines give you fluids and medicines before, during, and after surgery. Some of your pubic hair may be removed. Tight stockings (compression stockings) may be put on your legs to help prevent blood clots.About anesthesiaTo keep you pain-free during surgery, you'll receive anesthesia. General anesthesia allows you to sleep. Regional anesthesia numbs the lower part of your body. Local anesthesia numbs the area that will be operated on. Before surgery, you'll meet with the anesthesiologist or nurse security inspector. He or she can tell you what kind of anesthesia you will receive and answer questions you may have.What happens during the surgery?? An incision about 4 inches long is made in the lower part of the abdomen, near the pubic hairline.? Through the incision, the surgeon places sutures into the tissue next to the vagina. Or sutures may be placed into the outside mckeon of the vagina behind the urethra. The ends of the sutures are tied to strong tissues or bone nearby.? The incision is closed with sutures, deshaun, or strips of tape (Steri-Strips).What are the risks and complications?The risks and complications of this procedure may include:? Infection? Bleeding? Risks of anesthesia? Blood clots? Damage to nerves, muscles, bladder, or nearby pelvic structures? Trouble urinating? Urinary urgency? [id number] [employer]. [address] [place] [address], [place] [address]. All rights reserved. This information is not intended as a substitute for professional medical care. Always follow your healthcare professional's instructions. Normal [facility] Gynecology Office/Clinic Not heri 07-17-2017 Gynecology Office/Clinic Note Chief Complaint Consultation/referred by Stephanie Gonzalez.History of Present Illness Contraception Type: Vasectomy Last Menstrual Period: 06/10/17 Frequency of Menstruation: q other month Abnormal vaginal discharge: No Breast lumps/pain: Yes Clotting with periods: Yes Heavy periods: Yes Hot flashes: No Irregular periods: Yes Night sweats: Yes Painful periods: No Painful sex: Yes Pelvic pain: No Spotting: No Vaginal dryness: No Vaginal itch/burning/odor: No Additional HPI details: 41y/o consultation. C/o feeling a bulge. C/o urinary freq, urgency and some urinary incont. Find it is hard to empty bladder especially if she is constipated. Cycles heavy changing q 35 mins super tampon for 3 days. + clots. Biggest baby 8.9lbReview of Systems Head Headaches: No Migraines: No Additional Details Additional Details: urgency only in the am. Boils lately in face, noted hair growth on face, Dyspareunia certain positions Freq bacterial & vag infections breast lumpy and tender at times/ has had mammograms. Cardio Respiratory Heart Irregularity: Yes- Peripheral edema: No Shortness of Breath: No Endocrine Abnormal weight gain: No Abnormal weight loss: No Fatigue1: Yes ENT Congestion: No Nasal drainage: No Sore throat: No Vertigo: No Eyes Blurred vision: No Corrective lenses: Yes Gastrointestinal Abdominal Pain: No Bloating: No Change in bowel habits: No Reflux/heartburn: No Hematologic/Lymphatic Bleeding tendencies: No Bruising: No Integumentary Acne: Yes Hair changes: No Lesions: No Moles: No Musculoskeletal Backpain: Yes Joint pain: Yes Muscle aches: Yes PsychoSocial Anxiety: No Depression2: No Homicidal Ideation: No Sleep Problems: Yes Suicidal Ideation1: No Urinary Nocturia: No Painful urination: No Urgency: Yes Urinary frequency: Yes Urinary Incontinence: YesPhysical Exam General: [Alert and oriented, well nourished, no acute distress]. Eye: [PERRL, EOMI, normal conjunctiva]. HEENT: [Normocephalic, clear tympanic membranes, normal hearing, moist oral mucosa, no scleral icterus, no sinus tenderness]. Neck: [Supple, non-tender, no carotid bruits, no JVD, no lymphadenopathy]. Lungs: [Clear to auscultation and percussion, non-labored respiration]. Heart: [Normal rate, regular rhythm, no murmur, gallop or edema]. Abdomen: [Soft, non-tender, non-distended, normal bowel sounds, no masses]. Musculoskeletal: [Normal range of motion and strength, no tenderness or swelling]. Skin: [Skin is warm, dry and pink, no rashes or lesions]. Neurologic: [Awake, alert, and oriented X3, CN II-XII intact]. Psychiatric: [Cooperative, appropriate mood and affect]. External Genitalia: [Normal urethral meatus, no lesions, vulvar skin intact]. Genitourinary: [Limited exam due to obesity but enlarged boggy Grade 1 uterine prolapse. Grade 2 cystocele ( lateral) or grade 2 rectocele]. Bimanual exam: Enlarged tender uterus, No adnexal tenderness or masses]. Additional Vitals No qualifying data available.Assessment/Plan Cystocele, lateral Dyspnea on exertion Heart palpitations Ordered: Complete Blood Count w/ Differential Comprehensive Metabolic Panel Thyroperoxidase Antibody-Grayling Vitamin B12 Level Menorrhagia Ordered: Thyroid Stimulating Hormone Urinary frequency Ordered: Culture Urine Urinalysis with Culture, if indicated US Urinary Bladder Urinary incontinence in female Ordered: Culture Urine Urinalysis with Culture, if indicated US Urinary Bladder Orders: .Glucose 2 Hour .Glucose Baseline .Insulin 2 Hour .Insulin Fasting Lab Order Communication US TransvaginalProblem List/Past Medical History Ongoing No qualifying data Historical Anxiety Depression Fibromyalgia HTN - HypertensionProcedure/Surgic al History back surgery (2001), REMOVE TONSILS AND ADENOIDS.Medications azelastine 137 mcg/inh (0.1%) nasal spray, 2 sprays, Nasal, BID Claritin, 10 mg, Daily, Not taking Cymbalta, 30 mg, Oral hydroCHLOROthiazide 25 mg oral tablet, 25 mg, 1 tabs, Oral, Daily losartan 100 mg oral tablet, 100 mg, 1 tabs, Oral, Daily meclizine 12.5 mg oral tablet, 12.5 mg, 1 tabs, Oral, TID Medrol Dosepak, Not taking metFORMIN 500 mg oral tablet, 500 mg, 1 tabs, Oral, BID multivitamin, Daily Neurontin, 600 mg, Oral, BID omeprazole, 40 mg, Oral, Daily ProAir HFA, 2 puffs, QID Robaxin 500 mg oral tablet, 1000 mg, 2 tabs, Oral, QID rosuvastatin 40 mg oral tablet, 40 mg, 1 tabs, Oral, HS (at bedtime) triamcinolone 0.025% topical cream, 1 justine, Topical, TID Zofran 4 mg oral tablet, 4 mg, 1 tabs, Oral, [id number] sulfa drugs (tongue swells)Social History Alcohol Never Substance Abuse Denies All Tobacco Current every day smokerFamily History Breast cancer: Grandmother (M). Hypertension 21-MAR-2016 18:09:58<$>: Mother. Thyroid disease: Mother.Electronically signed by Kosta Koch DO 07/17/17 17:24 EST Normal [facility] UA w Culture if Indon 2017 Color Nom (U) Yellow Normal [facility] Comment on above: Performed By: #### U CI ####[address] [address] Glucose mass conc (U) Negative Normal Negative [facility] Comment on above: Performed By: #### U CI ####[address] [address] Ketones Ql (U) Negative Normal Negative [facility] Comment on above: Performed By: #### U CI ####[address] [address] UA Blood Negative Normal Negative [facility] Comment on above: Performed By: #### U CI ####[address] [address] UA Clarity Clear Normal [facility] Comment on above: Performed By: #### U CI ####[address] [address] UA Leukocyte Esterase Trace Abnormal Negative [facility] Comment on above: Performed By: #### U CI ####[address] [address] UA Nitrite Negative Normal Negative [facility] Comment on above: Performed By: #### U CI ####[address] [address] UA pH 6.0 Normal 4.5 - 7.8 [facility] Comment on above: Performed By: #### U CI ####[place] [id number] UA Protein Negative Normal Negative [facility] Comment on above: Performed By: #### U CI ####[address] [address] UA Source Clean Catch Normal [facility] Comment on above: Performed By: #### U CI ####[place] [id number] UA Spec Grav 1.012 Normal 1.003-1.03 5 [facility] Comment on above: Performed By: #### U CI ####[place] [address] UA Urobilinogen 0.2 mg/dL Normal 0.2 - 1.0 [facility] Comment on above: Performed By: #### U CI ####[place] [id number] Urobilinogen Test strip Qn (U) Negative Normal Negative [facility] Comment on above: Performed By: #### U CI ####[place] [address] Vital Signs Date Time Vital Sign Value Performing Clinician [facility] 10-04-2024 08:36-0400 Blood Pressure Location [facility] 10-04-2024 08:36-0400 Diastolic blood pressure 70 mm[Hg] [facility] 10-04-2024 08:36-0400 Heart rate 77 /min [facility] 10-04-2024 08:36-0400 SaO2% (BldA) [Mass fraction] 98 % [facility] 10-04-2024 08:36-0400 Systolic blood pressure 112 mm[Hg] [facility] 09-26-2024 14:00-0400 Body mass index (BMI) [Ratio] 42.18 kg/m2 Dada Maddie DO Work Phone: [facility] 09-26-2024 14:00-0400 Body weight 114.99 kg Dada Maddie DO Work Phone: [facility] 09-26-2024 14:00-0400 Diastolic blood pressure 100 mm[Hg] Dada Maddie DO Work Phone: [facility] 09-26-2024 14:00-0400 Systolic blood pressure 140 mm[Hg] Dada Maddie DO Work Phone: [facility] 09-12-2024 10:30-0400 Body mass index (BMI) [Ratio] 43.02 kg/m2 Dada Maddie DO Work Phone: [facility] 09-12-2024 10:30-0400 Body weight 117.25 kg Dada Maddie DO Work Phone: [facility] 09-12-2024 10:30-0400 Diastolic blood pressure 84 mm[Hg] Dada Maddie DO Work Phone: [facility] 09-12-2024 10:30-0400 Systolic blood pressure 122 mm[Hg] Dada Maddie DO Work Phone: [facility] 08-29-2024 10:34-0400 Body temperature 98.6 [degF] Mhd Al-Marrawi [facility] 08-29-2024 10:34-0400 Diastolic blood pressure 74 mm[Hg] Mhd Al-Marraw[facility] 08-29-2024 10:34-0400 Heart rate 70 /min Mhd Al-Marrawi [facility] 08-29-2024 10:34-0400 Mean blood pressure 85 mm[Hg] Mhd Al-Marraw[facility] 08-29-2024 10:34-0400 Respiratory rate 16 /min Mhd Al-Marrawi [facility] 08-29-2024 10:34-0400 SaO2% (BldA) [Mass fraction] 94 % d Leno-Jere [facility] 08-29-2024 10:34-0400 Systolic blood pressure 106 mm[Hg] [facility] 07-05-2024 08:48-0500 Diastolic blood pressure 69 mm[Hg] Alyssa Young [facility] 07-05-2024 08:48-0500 Diastolic blood pressure 75 mm[Hg] Alyssa Young [facility] 07-05-2024 08:48-0500 Heart rate 74 /min Alyssa Young [facility] 07-05-2024 08:48-0500 Heart rate 75 /min Alyssa Neotract [facility] 07-05-2024 08:48-0500 Mean blood pressure 85 mm[Hg] Alyssa Neotract [facility] 07-05-2024 08:48-0500 Respiratory rate 14 /min Alyssa Young [facility] 07-05-2024 08:48-0500 Systolic blood pressure 102 mm[Hg] Alyssa Young [facility] 07-05-2024 08:48-0500 Systolic blood pressure 104 mm[Hg] Alyssa Young [facility] 06-06-2024 08:50-0500 Diastolic blood pressure 78 mm[Hg] Alyssa Neotract [facility] 06-06-2024 08:50-0500 Heart rate 80 /min Alyssa Neotract [facility] 06-06-2024 08:50-0500 Mean blood pressure 88 mm[Hg] Alyssa Young [facility] 06-06-2024 08:50-0500 Respiratory rate 16 /min Alyssa Young [facility] 06-06-2024 08:50-0500 Systolic blood pressure 109 mm[Hg] Alyssa Young [facility] 06-03-2024 13:54-0500 Diastolic blood pressure 88 mm[Hg] [facility] 06-03-2024 13:54-0500 Mean blood pressure 103 mm[Hg] [facility] 06-03-2024 13:54-0500 Systolic blood pressure 132 mm[Hg] [facility] 06-03-2024 13:28-0500 Blood Pressure Location [facility] 06-03-2024 13:28-0500 Diastolic blood pressure 98 mm[Hg] [facility] 06-03-2024 13:28-0500 Heart rate 96 /min [facility] 06-03-2024 13:28-0500 SaO2% (BldA) [Mass fraction] 97 % [facility] 06-03-2024 13:28-0500 Systolic blood pressure 152 mm[Hg] [facility] 05-27-2024 08:50-0500 Blood Pressure Location [facility] 05-27-2024 08:50-0500 Diastolic blood pressure 94 mm[Hg] [facility] 05-27-2024 08:50-0500 Heart rate 58 /min [facility] 05-27-2024 08:50-0500 SaO2% (BldA) [Mass fraction] 98 % [facility] 05-27-2024 08:50-0500 Systolic blood pressure 134 mm[Hg] Serafin Roberson [facility] 04-04-2024 10:00-0500 Diastolic blood pressure 88 mm[Hg] Daja Marion [facility] 04-04-2024 10:00-0500 Mean blood pressure 100 mm[Hg] Daja Marion [facility] 04-04-2024 10:00-0500 Systolic blood pressure 124 mm[Hg] Daja Marion [facility] 04-04-2024 09:57-0500 Body temperature 97.52 [degF] Daja Marion [facility] 04-04-2024 09:57-0500 Diastolic blood pressure 106 mm[Hg] Daja Marion [facility] 04-04-2024 09:57-0500 Heart rate 84 /min Daja Marion [facility] 04-04-2024 09:57-0500 Mean blood pressure 119 mm[Hg] Daja Marion [facility] 04-04-2024 09:57-0500 Respiratory rate 16 /min Daja Marion [facility] 04-04-2024 09:57-0500 SaO2% (BldA) [Mass fraction] 97 % Daja Marion [facility] 04-04-2024 09:57-0500 Systolic blood pressure 146 mm[Hg] Daja Marion [facility] 11-09-2023 16:42-0400 Blood Pressure Location Stefania Edwards [facility] 11-09-2023 16:42-0400 Body temperature 98.6 [degF] Stefania Missler [facility] 11-09-2023 16:42-0400 Diastolic blood pressure 76 mm[Hg] Stefania Edwards [facility] 11-09-2023 16:42-0400 Heart rate 67 /min Stefania Edwards [facility] 11-09-2023 16:42-0400 SaO2% (BldA) [Mass fraction] 99 % Stefania Edwards [facility] 11-09-2023 16:42-0400 Systolic blood pressure 124 mm[Hg] Stefania Edwards [facility] 10-14-2023 11:18-0400 Diastolic blood pressure 82 mm[Hg] Rupesh Gandara [facility] 10-14-2023 11:18-0400 Heart rate 68 /min Rupesh Gandara [facility] 10-14-2023 11:18-0400 Mean blood pressure 94 mm[Hg] Rupesh Gandara [facility] 10-14-2023 11:18-0400 Respiratory rate 14 /min Rupesh Gandara [facility] 10-14-2023 11:18-0400 Systolic blood pressure 118 mm[Hg] Rupesh Gandara [facility] 09-01-2023 15:17-0400 Blood Pressure Location [facility] 09-01-2023 15:17-0400 Body temperature 97.7 [degF] [facility] 09-01-2023 15:17-0400 Diastolic blood pressure 80 mm[Hg] [facility] 09-01-2023 15:17-0400 Heart rate 72 /min [facility] 09-01-2023 15:17-0400 Systolic blood pressure 120 mm[Hg] Maximilian Leach [facility] 06-05-2023 09:00-0500 Blood Pressure Location Daja Johnsonke [facility] 06-05-2023 09:00-0500 Body temperature 98.06 [degF] Daja Farmerboske [facility] 06-05-2023 09:00-0500 Diastolic blood pressure 81 mm[Hg] Daja Farmerbossubha [facility] 06-05-2023 09:00-0500 Heart rate 64 /min Daja Farmerboske [facility] 06-05-2023 09:00-0500 Mean blood pressure 102 mm[Hg] Daja Farmerboske [facility] 06-05-2023 09:00-0500 Respiratory rate 18 /min Daja Marion [facility] 06-05-2023 09:00-0500 SaO2% (BldA) [Mass fraction] 96 % Daja Farmerboske [facility] 06-05-2023 09:00-0500 Systolic blood pressure 144 mm[Hg] Daja Farmerboske [facility] 05-29-2023 11:52-0500 Heart rate 63 /min Daja Farmerboske [facility] 05-29-2023 11:52-0500 SaO2% (BldA) [Mass fraction] 98 % Daja Farmerboske [facility] 05-29-2023 11:52-0500 Diastolic blood pressure 69 mm[Hg] Daja Farmerboske [facility] 05-29-2023 11:52-0500 Mean blood pressure 80 mm[Hg] Daja Marion [facility] 05-29-2023 11:52-0500 Systolic blood pressure 104 mm[Hg] Daja Marion [facility] 05-29-2023 11:00-0500 Blood Pressure Location Daja Marion [facility] 05-29-2023 09:48-0500 Heart rate 75 /min Daja Marion [facility] 05-29-2023 09:48-0500 SaO2% (BldA) [Mass fraction] 97 % Daja Marion [facility] 05-29-2023 09:47-0500 Body temperature 97.88 [degF] Daja Marion [facility] 05-29-2023 09:47-0500 Diastolic blood pressure 90 mm[Hg] Daja Marion [facility] 05-29-2023 09:47-0500 Mean blood pressure 103 mm[Hg] Daja Marion [facility] 05-29-2023 09:47-0500 Systolic blood pressure 128 mm[Hg] Daja Marion [facility] 05-29-2023 09:00-0500 Respiratory rate 16 /min Daja Marion [facility] 05-04-2023 10:00-0500 Blood Pressure Location Daja Marion [facility] 05-04-2023 10:00-0500 Body temperature 98.06 [degF] Daja Marion [facility] 05-04-2023 10:00-0500 Diastolic blood pressure 74 mm[Hg] Daja Marion [facility] 05-04-2023 10:00-0500 Heart rate 80 /min Daja Marion [facility] 05-04-2023 10:00-0500 Mean blood pressure 84 mm[Hg] Daja Marion [facility] 05-04-2023 10:00-0500 Respiratory rate 16 /min Daja Marion [facility] 05-04-2023 10:00-0500 SaO2% (BldA) [Mass fraction] 95 % Daja Marion [facility] 05-04-2023 10:00-0500 Systolic blood pressure 105 mm[Hg] Daja Marion [facility] 01-16-2023 10:30-0400 Blood Pressure Location Andreas JOSEPHLE [facility] 01-16-2023 10:30-0400 Body temperature 97.7 [degF] Andreas KAPLE [facility] 01-16-2023 10:30-0400 Diastolic blood pressure 70 mm[Hg] Andreas KAPLE [facility] 01-16-2023 10:30-0400 Heart rate 75 /min Andreas KAPLE [facility] 01-16-2023 10:30-0400 Respiratory rate 18 /min Andreas KAPLE [facility] 01-16-2023 10:30-0400 SaO2% (BldA) [Mass fraction] 98 % Andreas KAPLE [facility] 01-16-2023 10:30-0400 Systolic blood pressure 116 mm[Hg] Andreas KAPLE [facility] 12-30-2022 17:21-0400 Diastolic blood pressure 76 mm[Hg] Tao David [facility] 12-30-2022 17:21-0400 Heart rate 70 /min Tao David [facility] 12-30-2022 17:21-0400 Mean blood pressure 89 mm[Hg] Tao David [facility] 12-30-2022 17:21-0400 Respiratory rate 16 /min Tao David [facility] 12-30-2022 17:21-0400 SaO2% (BldA) [Mass fraction] 98 % Tao David [facility] 12-30-2022 17:21-0400 Systolic blood pressure 115 mm[Hg] Tao David [facility] 12-30-2022 16:20-0400 Diastolic blood pressure 70 mm[Hg] Tao David [facility] 12-30-2022 16:20-0400 Heart rate 67 /min Tao David [facility] 12-30-2022 16:20-0400 Mean blood pressure 91 mm[Hg] Tao David [facility] 12-30-2022 16:20-0400 Respiratory rate 21 /min Tao David [facility] 12-30-2022 16:20-0400 SaO2% (BldA) [Mass fraction] 99 % Tao David [facility] 12-30-2022 16:20-0400 Systolic blood pressure 133 mm[Hg] Tao David [facility] 12-30-2022 15:30-0400 Diastolic blood pressure 65 mm[Hg] Tao David [facility] 12-30-2022 15:30-0400 Heart rate 70 /min Tao David [facility] 12-30-2022 15:30-0400 Mean blood pressure 81 mm[Hg] Tao David [facility] 12-30-2022 15:30-0400 Respiratory rate 16 /min Tao David [facility] 12-30-2022 15:30-0400 SaO2% (BldA) [Mass fraction] 97 % Tao David [facility] 12-30-2022 15:30-0400 Systolic blood pressure 112 mm[Hg] Tao David [facility] 12-30-2022 14:53-0400 Respiratory rate 18 /min Tao David [facility] 12-30-2022 13:45-0400 Body temperature 97.7 [degF] Tao Hernandez [facility] 12-30-2022 13:45-0400 Respiratory rate 18 /min Tao David [facility] 12-10-2022 15:13-0400 Heart rate 66 /min Andrew Zumbar [facility] 12-10-2022 15:13-0400 SaO2% (BldA) [Mass fraction] 100 % Andrew Zumbar [facility] 12-10-2022 15:12-0400 Diastolic blood pressure 71 mm[Hg] Andrew Zumbar [facility] 12-10-2022 15:12-0400 Mean blood pressure 82 mm[Hg] Andrew Zumbar [facility] 12-10-2022 15:12-0400 Systolic blood pressure 104 mm[Hg] Andrew Zumbar [facility] 12-10-2022 15:00-0400 Diastolic blood pressure 87 mm[Hg] Andrew Zumbar [facility] 12-10-2022 15:00-0400 Heart rate 59 /min Andrew Zumbar [facility] 12-10-2022 15:00-0400 Systolic blood pressure 125 mm[Hg] Andrew Zumbar [facility] 12-10-2022 14:26-0400 Heart rate 64 /min Andrew Zumbar [facility] 12-10-2022 14:26-0400 SaO2% (BldA) [Mass fraction] 100 % Andrew Zumbar [facility] 12-10-2022 14:26-0400 Diastolic blood pressure 69 mm[Hg] Andrew Zumbar [facility] 12-10-2022 14:26-0400 Mean blood pressure 82 mm[Hg] Andrew Zumbar [facility] 12-10-2022 14:26-0400 Systolic blood pressure 107 mm[Hg] Andrew Zumbar [facility] 12-10-2022 14:25-0400 Respiratory rate 14 /min Andrew Zumbar [facility] 12-10-2022 14:00-0400 Body temperature 97.52 [degF] Andrew Zumbar [facility] 12-09-2022 14:46-0400 Blood Pressure Location Andreas ECKERT [facility] 12-09-2022 14:46-0400 Body temperature 97.52 [degF] Andreas KAPLE [facility] 12-09-2022 14:46-0400 Diastolic blood pressure 80 mm[Hg] Andreas KAPLE [facility] 12-09-2022 14:46-0400 Heart rate 75 /min Andreas KAPLE [facility] 12-09-2022 14:46-0400 Respiratory rate 16 /min Andreas RUIZLE [facility] 12-09-2022 14:46-0400 SaO2% (BldA) [Mass fraction] 97 % Andreas RUIZLE [facility] 12-09-2022 14:46-0400 Systolic blood pressure 130 mm[Hg] Andreas RUIZLE [facility] 11-26-2022 15:21-0400 Blood Pressure Location [facility] 11-26-2022 15:21-0400 Body temperature 97.34 [degF] [facility] 11-26-2022 15:21-0400 Diastolic blood pressure 90 mm[Hg] [facility] 11-26-2022 15:21-0400 Heart rate 94 /min [facility] 11-26-2022 15:21-0400 SaO2% (BldA) [Mass fraction] 98 % [facility] 11-26-2022 15:21-0400 Systolic blood pressure 135 mm[Hg] [facility] 11-13-2022 08:35-0400 Diastolic blood pressure 85 mm[Hg] Andrew Henriquezumbar [facility] 11-13-2022 08:35-0400 Heart rate 108 /min Andrew Henriquezumbar [facility] 11-13-2022 08:35-0400 Mean blood pressure 100 mm[Hg] Andrew Henriquezumbar [facility] 11-13-2022 08:35-0400 Respiratory rate 15 /min Andrew Henriquezumbar [facility] 11-13-2022 08:35-0400 Systolic blood pressure 130 mm[Hg] Andrew Henriquezumbar [facility] 11-04-2022 08:26-0400 Blood Pressure Location Andreas KAPLE [facility] 11-04-2022 08:26-0400 Body temperature 97.7 [degF] Andreas KAPLE [facility] 11-04-2022 08:26-0400 Diastolic blood pressure 78 mm[Hg] Andreas KAPLE [facility] 11-04-2022 08:26-0400 Heart rate 94 /min Andreas KAPLE [facility] 11-04-2022 08:26-0400 Respiratory rate 16 /min Andreas KAPLE [facility] 11-04-2022 08:26-0400 SaO2% (BldA) [Mass fraction] 99 % Andreas KAPLE [facility] 11-04-2022 08:26-0400 Systolic blood pressure 128 mm[Hg] Andreas KAPLE [facility] 10-24-2022 08:00-0400 Blood Pressure Location Hussain Varner [facility] 10-24-2022 08:00-0400 Body temperature 97.7 [degF] Hussain Varner [facility] 10-24-2022 08:00-0400 Diastolic blood pressure 88 mm[Hg] Hussain Varner [facility] 10-24-2022 08:00-0400 Heart rate 99 /min Hussain Varner [facility] 10-24-2022 08:00-0400 SaO2% (BldA) [Mass fraction] 98 % Hussain Varner [facility] 10-24-2022 08:00-0400 Systolic blood pressure 130 mm[Hg] Hussain Varner [facility] 10-03-2022 08:26-0400 Blood Pressure Location Andreas KAPLE [facility] 10-03-2022 08:26-0400 Body temperature 98.06 [degF] Andreas KAPLE [facility] 10-03-2022 08:26-0400 Diastolic blood pressure 70 mm[Hg] Andreas KAPLE [facility] 10-03-2022 08:26-0400 Heart rate 90 /min Andreas KAPLE [facility] 10-03-2022 08:26-0400 Respiratory rate 16 /min Andreas KAPLE [facility] 10-03-2022 08:26-0400 SaO2% (BldA) [Mass fraction] 98 % Andreas KAPLE [facility] 10-03-2022 08:26-0400 Systolic blood pressure 120 mm[Hg] Andreas KAPLE [facility] 09-04-2022 08:24-0400 Blood Pressure Location Andreas KAPLE [facility] 09-04-2022 08:24-0400 Body temperature 98.24 [degF] Andreas KAPLE [facility] 09-04-2022 08:24-0400 Diastolic blood pressure 70 mm[Hg] Andreas KAPLE [facility] 09-04-2022 08:24-0400 Heart rate 90 /min Andreas KAPLE [facility] 09-04-2022 08:24-0400 Respiratory rate 16 /min Andreas KAPLE [facility] 09-04-2022 08:24-0400 SaO2% (BldA) [Mass fraction] 98 % Andreas KAPLE [facility] 09-04-2022 08:24-0400 Systolic blood pressure 122 mm[Hg] Andreas KAPLE [facility] 08-14-2022 09:01-0400 Diastolic blood pressure 87 mm[Hg] Andrew Zumbar [facility] 08-14-2022 09:01-0400 Diastolic blood pressure 101 mm[Hg] Andrew Zumbar [facility] 08-14-2022 09:01-0400 Heart rate 97 /min Andrew Zumbar [facility] 08-14-2022 09:01-0400 Heart rate 98 /min Andrew Zumbar [facility] 08-14-2022 09:01-0400 Mean blood pressure 101 mm[Hg] Andrew Zumbar [facility] 08-14-2022 09:01-0400 Respiratory rate 14 /min Andrew Zumbar [facility] 08-14-2022 09:01-0400 Respiratory rate 16 /min Andrew Zumbar [facility] 08-14-2022 09:01-0400 Systolic blood pressure 128 mm[Hg] Andrew Zumbar [facility] 08-14-2022 09:01-0400 Systolic blood pressure 137 mm[Hg] Andrew Zumbar [facility] 08-04-2022 12:47-0400 Blood Pressure Location Andreas KAPLE [facility] 08-04-2022 12:47-0400 Body temperature 98.24 [degF] Andreas KAPLE [facility] 08-04-2022 12:47-0400 Diastolic blood pressure 78 mm[Hg] Andreas KAPLE [facility] 08-04-2022 12:47-0400 Heart rate 100 /min Andreas KAPLE [facility] 08-04-2022 12:47-0400 Respiratory rate 20 /min Andreas KAPLE [facility] 08-04-2022 12:47-0400 SaO2% (BldA) [Mass fraction] 100 % Andreas KAPLE [facility] 08-04-2022 12:47-0400 Systolic blood pressure 136 mm[Hg] Andreas KAPLE [facility] 07-09-2022 15:16-0500 Diastolic blood pressure 90 mm[Hg] Andrew Zumbar [facility] 07-09-2022 15:16-0500 Heart rate 99 /min Andrew Zumbar [facility] 07-09-2022 15:16-0500 Mean blood pressure 105 mm[Hg] Andrew Zumbar [facility] 07-09-2022 15:16-0500 Systolic blood pressure 134 mm[Hg] Andrew Zumbar [facility] 06-30-2022 11:32-0500 Diastolic blood pressure 76 mm[Hg] Andreas KAPLE [facility] 06-30-2022 11:32-0500 Heart rate 85 /min Andreas KAPLE [facility] 06-30-2022 11:32-0500 Respiratory rate 20 /min Andreas KAPLE [facility] 06-30-2022 11:32-0500 SaO2% (BldA) [Mass fraction] 96 % Andreas KAPLE [facility] 06-30-2022 11:32-0500 Systolic blood pressure 104 mm[Hg] Andreas KAPLE [facility] 06-17-2022 21:00-0500 Diastolic blood pressure 91 mm[Hg] Musa Jennifer [facility] 06-17-2022 21:00-0500 Heart rate 78 /min Musa Jennifer [facility] 06-17-2022 21:00-0500 Mean blood pressure 110 mm[Hg] Musa Jennifer [facility] 06-17-2022 21:00-0500 Respiratory rate 20 /min Musa Jennifer [facility] 06-17-2022 21:00-0500 SaO2% (BldA) [Mass fraction] 100 % Musa Jennifer [facility] 06-17-2022 21:00-0500 Systolic blood pressure 148 mm[Hg] Musa Jennifer [facility] 06-17-2022 18:59-0500 Body temperature 98.24 [degF] Musa Jennifer [facility] 06-17-2022 18:59-0500 Diastolic blood pressure 101 mm[Hg] Musa Jennifer [facility] 06-17-2022 18:59-0500 Heart rate 89 /min Musa Jennifer [facility] 06-17-2022 18:59-0500 Respiratory rate 18 /min Musa Jennifer [facility] 06-17-2022 18:59-0500 SaO2% (BldA) [Mass fraction] 99 % Musa Jennifer [facility] 06-17-2022 18:59-0500 Systolic blood pressure 153 mm[Hg] Musa Jennifer [facility] 05-30-2022 09:02-0500 Blood Pressure Location Ting Klonk [facility] 05-30-2022 09:02-0500 Body temperature 97.7 [degF] Ting Klonk [facility] 05-30-2022 09:02-0500 Diastolic blood pressure 84 mm[Hg] Ting Klonk [facility] 05-30-2022 09:02-0500 Heart rate 73 /min Ting Klonk [facility] 05-30-2022 09:02-0500 SaO2% (BldA) [Mass fraction] 98 % Ting Klonk [facility] 05-30-2022 09:02-0500 Systolic blood pressure 134 mm[Hg] Ting Klonk [facility] 05-20-2022 18:03-0500 Body temperature 98.06 [degF] Jayson Duarte [facility] 05-20-2022 18:03-0500 Diastolic blood pressure 100 mm[Hg] Jayson Duarte [facility] 05-20-2022 18:03-0500 Heart rate 109 /min Jayson Duarte [facility] 05-20-2022 18:03-0500 Respiratory rate 18 /min Jayson Duarte [facility] 05-20-2022 18:03-0500 SaO2% (BldA) [Mass fraction] 98 % Jayson Duarte [facility] 05-20-2022 18:03-0500 Systolic blood pressure 151 mm[Hg] Jayson Duarte [facility] 05-13-2022 15:03-0500 Blood Pressure Location [facility] 05-13-2022 15:03-0500 Body temperature 98.42 [degF] [facility] 05-13-2022 15:03-0500 Diastolic blood pressure 91 mm[Hg] [facility] 05-13-2022 15:03-0500 Heart rate 98 /min [facility]-13-[facility] 15:03-0500 Mean blood pressure 111 mm[Hg] [facility] 05-13-[facility] 15:03-0500 Respiratory rate 18 /min [facility] 05-13-2022 15:03-0500 SaO2% (BldA) [Mass fraction] 97 % [facility] 05-13-2022 15:03-0500 Systolic blood pressure 150 mm[Hg] [facility] 05-06-2022 14:54-0500 Blood Pressure Location [facility] 05-06-2022 14:54-0500 Body temperature 98.42 [degF] [facility] 05-06-2022 14:54-0500 Diastolic blood pressure 85 mm[Hg] Hussainmartha Varner [facility] 05-06-2022 14:54-0500 Heart rate 100 /min Hussainmartha Varner [facility] 05-06-2022 14:54-0500 Mean blood pressure 105 mm[Hg] [facility] 05-06-2022 14:54-0500 Respiratory rate 18 /min Hussainmartha Varner [facility] 05-06-2022 14:54-0500 SaO2% (BldA) [Mass fraction] 98 % [facility]-06-2022 14:54-0500 Systolic blood pressure 145 mm[Hg] [facility] 04-30-2022 09:18-0500 Heart rate 113 /min [facility] 04-30-2022 09:18-0500 SaO2% (BldA) [Mass fraction] 97 % [facility] 04-30-2022 09:18-0500 Respiratory rate 18 /min Hussainmartha Varner [facility] 04-30-2022 09:18-0500 Body temperature 98.24 [degF] Hussainmartha Varner [facility] 04-30-2022 09:18-0500 Diastolic blood pressure 80 mm[Hg] [facility] 04-30-2022 09:18-0500 Mean blood pressure 94 mm[Hg] [facility] 04-30-2022 09:18-0500 Systolic blood pressure 123 mm[Hg] [facility] 04-30-2022 09:18-0500 Body temperature 98.24 [degF] [facility] 12-23-2021 09:42-0400 Blood Pressure Location Alyssa GA [facility] 12-23-2021 09:42-0400 Diastolic blood pressure 90 mm[Hg] Alyssa GA [facility] 12-23-2021 09:42-0400 Heart rate 96 /min Alyssaap GA [facility] 12-23-2021 09:42-0400 Respiratory rate 18 /min Alyssaap GA [facility] 12-23-2021 09:42-0400 SaO2% (BldA) [Mass fraction] 98 % Alyssaap GA [facility] 12-23-2021 09:42-0400 Systolic blood pressure 137 mm[Hg] Alyssa GA [facility] 12-03-2021 10:55-0400 Blood Pressure Location Andreas RUIZLE [facility] 12-03-2021 10:55-0400 Body temperature 98.42 [degF] Andreas KAPLE [facility] 12-03-2021 10:55-0400 Diastolic blood pressure 70 mm[Hg] Andreas KAPLE [facility] 12-03-2021 10:55-0400 Heart rate 83 /min Andreas KAPLE [facility] 12-03-2021 10:55-0400 Respiratory rate 18 /min Andreas KAPLE [facility] 12-03-2021 10:55-0400 SaO2% (BldA) [Mass fraction] 98 % Andreas KAPLE [facility] 12-03-2021 10:55-0400 Systolic blood pressure 122 mm[Hg] Andreas ECKERT [facility] 12-02-2021 11:30-0400 Diastolic blood pressure 86 mm[Hg] [facility] 12-02-2021 11:30-0400 Heart rate 73 /min [facility] 12-02-2021 11:30-0400 Respiratory rate 18 /min [facility] 12-02-2021 11:30-0400 SaO2% (BldA) [Mass fraction] 97 % [facility] 12-02-2021 11:30-0400 Systolic blood pressure 115 mm[Hg] [facility] 12-02-2021 11:00-0400 Diastolic blood pressure 60 mm[Hg] [facility] 12-02-2021 11:00-0400 Diastolic blood pressure 98 mm[Hg] [facility] 12-02-2021 11:00-0400 Heart rate 74 /min [facility] 12-02-2021 11:00-0400 SaO2% (BldA) [Mass fraction] 98 % [facility] 12-02-2021 11:00-0400 SaO2% (BldA) [Mass fraction] 96 % [facility] 12-02-2021 11:00-0400 Systolic blood pressure 107 mm[Hg] [facility] 12-02-2021 11:00-0400 Systolic blood pressure 136 mm[Hg] [facility] 12-02-2021 10:30-0400 Heart rate 71 /min [facility] 12-02-2021 10:30-0400 Respiratory rate 20 /min [facility] 12-02-2021 09:30-0400 Mean blood pressure 74 mm[Hg] [facility] 12-02-2021 08:57-0400 gluc 172 mg[facility] 12-02-2021 08:57-0400 gluc [facility] 12-02-2021 08:49-0400 Body temperature 98.42 [degF] [facility] 11-28-2021 21:00-0400 Diastolic blood pressure 72 mm[Hg] Tao David [facility] 11-28-2021 21:00-0400 Heart rate 73 /min Tao David [facility] 11-28-2021 21:00-0400 Systolic blood pressure 135 mm[Hg] Tao David [facility] 11-28-2021 18:26-0400 Body temperature 97.34 [degF] Tao David [facility] 11-28-2021 18:26-0400 Diastolic blood pressure 96 mm[Hg] Tao David [facility] 11-28-2021 18:26-0400 Heart rate 86 /min Tao David [facility] 11-28-2021 18:26-0400 Respiratory rate 14 /min Tao David [facility] 11-28-2021 18:26-0400 SaO2% (BldA) [Mass fraction] 100 % Tao David [facility] 11-28-2021 18:26-0400 Systolic blood pressure 141 mm[Hg] Tao David [facility] 11-21-2021 08:18-0400 Diastolic blood pressure 83 mm[Hg] Andrew Fuller [facility] 11-21-2021 08:18-0400 Heart rate 106 /min Andrew Henriquezumbar [facility] 11-21-2021 08:18-0400 Mean blood pressure 99 mm[Hg] Andrew Henriquezumbar [facility] 11-21-2021 08:18-0400 Respiratory rate 20 /min Andrew Henriquezumbar [facility] 11-21-2021 08:18-0400 Systolic blood pressure 130 mm[Hg] Andrew Henriquezumbar [facility] 08-29-2021 20:59-0400 Diastolic blood pressure 85 mm[Hg] [facility] 08-29-2021 20:59-0400 Heart rate 68 /min [facility] 08-29-2021 20:59-0400 Mean blood pressure 100 mm[Hg] [facility] 08-29-2021 20:59-0400 Respiratory rate 18 /min [facility] 08-29-2021 20:59-0400 SaO2% (BldA) [Mass fraction] 100 % [facility] 08-29-2021 20:59-0400 Systolic blood pressure 131 mm[Hg] [facility] 08-29-2021 19:03-0400 Body temperature 97.7 [degF] [facility] 08-29-2021 19:03-0400 Diastolic blood pressure 87 mm[Hg] [facility] 08-29-2021 19:03-0400 Heart rate 84 /min [facility] 08-29-2021 19:03-0400 Respiratory rate 18 /min [facility] 08-29-2021 19:03-0400 SaO2% (BldA) [Mass fraction] 98 % [facility] 08-29-2021 19:03-0400 Systolic blood pressure 127 mm[Hg] Deepti Alstonyanelis [facility] Encounters Encounter Date Encounter Type Care Provider Facility Start: 11-17-2024 ambulatory Serafin Roberson Facili ty:[facility] Start: 10-04-2024 End: 10-04-2024 ambulatory Serafin Roberson Facility:[facility] Start: 10-04-2024 End: 10-04-2024 Patient encounter procedure Serafin Roberson [facility] [place] Start: 09-26-2024 End: 09-26-2024 Departed Referred Dada Maddie DO Work Phone: [facility] Start: 09-26-2024 End: 09-26-2024 ambulatory DADA MADDIE [facility] Work Phone: Start: 09-26-2024 End: 09-26-2024 Patient encounter procedure Dada Maddie DO Work Phone: [facility] Comment on above: Pre-op examination; Menorrhagia with regular cycle; Abnormal uterine bleeding; Pelvic pain in female Start: 09-26-2024 End: 09-26-2024 Preprocedural examination done Dada Maddie DO Work Phone: [facility] Start: 09-12-2024 End: 09-12-2024 Bamboo flowsheet Dada Maddie DO Work Phone: [facility] Start: 09-12-2024 End: 09-12-2024 Bamboo flowsheet Dada Maddie DO Work Phone: [facility] Start: 09-12-2024 End: 09-12-2024 ambulatory DADA MADDIE Not Available Start: 09-12-2024 End: 09-12-2024 flow sheet Dada Maddie DO Work Phone: [facility] Comment on above: Dysmenorrhea; Pain in female genitalia on intercourse Start: 08-29-2024 End: 08-29-2024 ambulatory Mhd Mandy Coffman [place] Start: 08-29-2024 End: 08-29-2024 Patient encounter procedure Jeffy Mandy Augustus [facility] Start: 08-26-2024 End: 08-27-2024 ambulatory Hussain Telly [place] [place] Start: 08-26-2024 End: 08-27-2024 Patient encounter procedure Serafin Roberson [facility] Start: 08-19-2024 End: 08-19-2024 ambulatory Serafin Roberson Facility:[facility] Start: 08-12-2024 End: 08-12-2024 ambulatory Juanita Oneill Facility: [place] Start: 07-08-2024 End: 07-08-2024 ambulatory Serafin Roberson Facility:[facility] Start: 07-08-2024 End: 07-08-2024 Patient encounter procedure Serafin Roberson [facility] Start: 07-05-2024 End: 07-05-2024 ambulatory Alyssa Young [place] [place] Start: 07-05-2024 End: 07-05-2024 Patient encounter procedure Alyssa Young [facility] Start: 06-06-2024 End: 06-06-2024 ambulatory Alyssa Young [place] [place] Start: 06-06-2024 End: 06-06-2024 Patient encounter procedure Alyssa Young [facility] Start: 06-03-2024 End: 06-03-2024 ambulatory Serafin Roberson Facility:[facility] Start: 06-03-2024 End: 06-03-2024 Patient encounter procedure Serafin Roberson [facility] Start: 05-27-2024 End: 05-27-2024 ambulatory DO Serafin Roberson Facility:[facility] Start: 05-27-2024 End: 05-27-2024 Patient encounter procedure Serafin Roberson [facility] Start: 04-04-2024 End: 04-04-2024 ambulatory Daja Marion [place] [place] Start: 04-04-2024 End: 04-04-2024 Patient encounter procedure Daja Marion [facility] Start: 03-31-2024 End: 03-31-2024 ambulatory Daja Marion [place] [place] Start: 03-31-2024 End: 03-31-2024 Patient encounter procedure Daja Marion [facility] Start: 02-10-2024 End: 02-10-2024 ambulatory DO Serafin Roberson Facility:[facility] Start: 02-10-2024 End: 02-10-2024 Patient encounter procedure Serafin Roberson [facility] Start: 11-09-2023 End: 11-09-[address] [employer] Stefania Lowe sadaf Facility:[facility] Start: 11-09-2023 End: 11-09-2023 Patient encounter procedure Stefania Edwards [facility] Start: 10-14-2023 End: 10-14-2023 ambulatory Rupesh Gandara [place] [place] Start: 10-14-2023 End: 10-14-2023 Pain Management Rupesh Gandara [facility] Start: 09-01-2023 End: 09-01-2023 Lab Drop off Maximilian Leach [facility] Start: 09-01-2023 End: 09-01-2023 ambulatory Maximilian Leach [place] [place] Start: 09-01-2023 End: 09-01-2023 Patient encounter procedure Maximilian Leach [facility] Start: 08-06-2023 End: 09-11-2023 Pre-admission assessment Daja Marion [facility] Start: 07-13-2023 End: 09-11-2023 Pre-admission assessment Rupesh Gandara [facility] Start: 06-05-2023 End: 06-05-2023 ambulatory Daja Marion [place] [place] Start: 06-05-2023 End: 06-05-2023 Patient encounter procedure Daja Marion [facility] Start: 05-29-2023 End: 05-29-2023 Patient encounter procedure Daja Marion [facility] Start: 05-04-2023 End: 05-04-2023 Patient encounter procedure Daja Marion [facility] Start: 05-01-2023 End: 05-01-2023 Patient encounter procedure Hussain Varner [facility] Start: 02-05-2023 End: 02-05-2023 Patient encounter procedure Dada PERKINS [facility] Start: 01-16-2023 End: 01-16-2023 Patient encounter procedure Andreas ECKERT [facility] Start: 12-30-2022 End: 12-30-2022 Emergency department patient visit Tao Hernandez [facility] Start: 12-10-2022 End: 12-10-2022 Pain Management Andrew Fuller [facility] Start: 12-09-2022 End: 12-09-2022 Patient encounter procedure Andreas ECKERT [facility] Start: 11-26-2022 End: 11-26-2022 Lab Drop off Serafin Roberson [facility] Start: 11-26-2022 End: 11-26-2022 Patient encounter procedure Serafin Roberson [facility] Start: 11-13-2022 End: 11-13-2022 Patient encounter procedure Daja Marion [facility] Start: 11-13-2022 End: 11-13-2022 Pain Management Andrew Jonny [facility] Start: 11-04-2022 End: 11-04-2022 Patient encounter procedure Andreas ECKERT [facility] Start: 10-24-2022 End: 10-24-2022 Lab Drop off Andreas ECKERT [facility] Start: 10-24-2022 End: 10-24-2022 Patient encounter procedure Hussain Varner [facility] Start: 10-06-2022 End: 10-06-2022 Patient encounter procedure Hussain Varner [facility] Start: 10-03-2022 End: 10-03-2022 Patient encounter procedure Andreas ECKERT [facility] Start: 09-04-2022 End: 09-04-2022 Patient encounter procedure Andreas ECKERT [facility] Start: 08-14-2022 End: 08-14-2022 Patient encounter procedure Andreas ECKERT [facility] Start: 08-14-2022 End: 08-14-2022 Pain Management Andrew Fuller [facility] Start: 08-04-2022 End: 08-04-2022 Patient encounter procedure Andreas ECKERT [facility] Start: 07-09-2022 End: 07-09-2022 Pain Management Andrew Fuller [facility] Start: 06-30-2022 End: 06-30-2022 Patient encounter procedure Andreas ECKERT [facility] Start: 06-17-2022 End: 06-17-2022 Emergency department patient visit Musa Rodriguez [facility] Start: 05-30-2022 End: 05-30-2022 Patient encounter procedure Ting Muhammad [facility] [place] Start: 05-20-2022 End: 05-20-2022 Emergency department patient visit Jayson Duarte [facility] Start: 05-13-2022 End: 05-13-2022 Patient encounter procedure Hussain Varner [facility] Start: 05-06-2022 End: 05-06-2022 Patient encounter procedure Hussain Varner [facility] Start: 04-30-2022 End: 04-30-2022 Patient encounter procedure Hussain Varner [facility] Start: 04-28-2022 End: 04-28-2022 Patient encounter procedure Hussain Varner [facility] Start: 12-23-2021 End: 12-23-2021 Patient encounter procedure Alyssa GA [facility] Start: 12-03-2021 End: 12-03-2021 Patient encounter procedure Andreas ECKERT [facility] Start: 12-02-2021 End: 12-02-2021 Emergency department patient visit Deepti Jaden Gerard [facility] Start: 11-28-2021 End: 11-28-2021 Emergency department patient visit Tao Hernandez [facility] Start: 11-21-2021 End: 11-21-2021 Pain Management Andrew Fuller [facility] Start: 08-29-2021 End: 08-29-2021 Emergency department patient visit Erikcrystal Stanley Gerard [facility] Start: 03-18-2018 End: 03-19-2018 Patient encounter KOSTA HERNANDEZ Facility:[facility] Start: 08-17-2017 End: 08-18-2017 Patient encounter KOSTA HERNANDEZ Facility:[facility] Start: 08-17-2017 End: 08-18-2017 Patient encounter KOSTA HERNANDEZ Facility:[facility] Start: 07-17-2017 End: 07-18-2017 Patient encounter KOSTA HERNANDEZ Facility:[facility] Procedures Date Procedure Procedure Detail Performing Clinician Start: 09-26-2024 ENDOMETRIAL BIOPSY Dada Perkins DO Work Phone: Start: 03-05-2023 Microscopic observation [Identifier] in Cervix by Cyto stain Dada Perkins DO Work Phone: Start: 12-10-2022 Epidural injection of lumbar spine using fluoroscopic guidance Rupesh Gandara Comment on above: 75% relief Start: 08-14-2022 Injection of steroid into shoulder joint Andrew Fuller Comment on above: 50% relief Start: 01-29-2022 Epidural injection of lumbar spine using fluoroscopic guidance Andrew Fuller Comment on above: 90% relief x 3.5 months Start: 11-21-2020 Injection of nerve root of lumbar spine using fluoroscopic guidance Deepti Gee Comment on above: right L4+L5 TFESI- 90% relief Start: 06-25-2020 Esophagogastroduodenoscopy Deepti Bearden i Start: 05-16-2020 Epidural injection of lumbar spine using fluoroscopic guidance Deepti Gee Comment on above: Right L5 & S1 TFESI-0% relief Start: 02-08-2020 Injection of nerve root of lumbar spine using fluoroscopic guidance Deepti Gee Comment on above: L4+L5 80% for one month Start: 11-30-2019 Injection of sacroiliac joint using fluoroscopic guidance Deepti Gee Comment on above: right SIJI joint injection & 8 trigger p oint injection 50% relief for couple of weeks and now at 40% relief Start: 09-29-2019 Colonoscopy Dada Perkins DO Work Phone: Start: 09-29-2019 Biopsy of duodenum Deepti Jacksonflaca Start: 09-29-2019 Cardioesophageal junction structure (body structure) Deepti Jacksonflaca Start: 09-29-2019 Colonoscopy Deepti Jacksonflaca Start: 09-29-2019 Esophagogastroduodenoscopy Deepti Jacksonharvey i Start: 09-29-2019 Polyp of sigmoid colon (disorder) Deepti Jacksonflaca Start: 08-10-2019 Injection of trigger points Erikcrystal Caitie espinoza Comment on above: B/L trap TPI 70% relief that continues Start: 08-10-2019 Nerve block with injection of lumbar spine using fluoroscopic guidance Deepti Gee Comment on above: L4-L5 TFESI 90 % relief for 1 month, ezra n gradually returned now at 50% relief Start: 05-12-2019 Injection of sacroiliac joint using fluoroscopic guidance Deepti Gee Comment on above: bilat SIJI- 80% relief for at least one month Start: 11-24-2018 Right L4/5 Transforaminal Epidural Steroid Injection 10 Andrew Fuller Comment on above: 75-80% Pain relief Start: 11-24-2018 Right L4/5 Transforaminal Epidural Steroid Injection 11 Rupesh Gandara Comment on above: 75-80% Pain relief Start: 11-24-2018 Right L4/5 Transforaminal Epidural Steroid Injection 8 Erikcrystal Gerard Comment on above: 75-80% Pain relief Start: 11-24-2018 Right L4/5 Transforaminal Epidural Steroid Injection 9 Andrew Fuller Comment on above: 75-80% Pain relief Start: 04-08-2018 botox injections for migraine 10 Andrew Zumbar Comment on above: 100% relief. Start: 04-08-2018 botox injections for migraine 11 Andrew Zumbar Comment on above: 100% relief. Start: 04-08-2018 botox injections for migraine 12 Patrick Gandara Comment on above: 100% relief. Start: 04-08-2018 botox injections for migraine 9 Deepti houston Comment on above: 100% relief. Start: 03-10-2018 Injection of sacroiliac joint using fluoroscopic guidance Deepti Gee Comment on above: bilat SIJI- 70% relief to present Start: 12-17-2017 left knee injection 11 Deepti Gee Comment on above: 80% relief Start: 12-17-2017 left knee injection 12 Andrew Fuller Comment on above: 80% relief Start: 12-17-2017 left knee injection 13 Andrew Fuller Comment on above: 80% relief Start: 12-17-2017 left knee injection 14 Rupesh Gandara Comment on above: 80% relief Start: 11-05-2016 Injection of sacroiliac joint using fluoroscopic guidance Deepti Gee Comment on above: B/L 75% rellief to present Start: 11-05-2016 Injection of trigger points Deepti espinoza Comment on above: B/L trapezius 50% relief for 1 month Start: 07-09-2016 Injection of sacroiliac joint using fluoroscopic guidance Deepti Gee Comment on above: 70% relief for 2 months B/L Start: 02-07-2016 Injection of trigger points Deepti espinoza Comment on above: bilat cervical TPI Start: 02-07-2016 Trigger Point Injections 17 Erikit Haemilya olga Comment on above: in office cervical, thoracic and trapezi us Start: 02-07-2016 Trigger Point Injections 18 Andrew kumar Comment on above: in office cervical, thoracic and trapezi us Start: 02-07-2016 Trigger Point Injections 19 Andrew Henriquezumb stacy Comment on above: in office cervical, thoracic and trapezi us Start: 02-07-2016 Trigger Point Injections 20 [address] Comment on above: in office cervical, thoracic and trapezi us Start: 04-12-2015 Entire trochanteric bursa (body structure) Deepti Gee Comment on above: right and left -80% relief on right-stil l has some relief 50% relief on left stide, still has some relief Start: 01-25-2015 Injection of trigger points Deepti espinoza Comment on above: TPI bilateral cervical and Rt. thoracic areas--45% relief back surgery Deepti Gee Tonsillectomy Deepti Gee Plan of Treatment Date Care Activity Detail Author Start: 09-28-2029 Screening for malign ant neoplasm of colon [facility] Start: 03-05-2028 Screening for malign ant neoplasm of cervix [facility] Start: 01-23-2025 Influenza vaccination Influenz a Vaccine (Season Ended) [facility] Start: 09-26-2024 End: 09-26-2024 Patient encounter procedure 09/26/2024 1:30 PM EDT Procedure Visit [facility] [address] [place] [id number] Dada Perkins DO [address] [place] [address] [facility] Start: 09-12-2024 End: 09-12-2025 aPTT in Blood by Coagulation assay APTT Lab Routine Dysmenorrhea Expected: 09/12/2024 (Approximate), Expires: 09/12/2025 [facility] Comment on above: Expected: 09/12/2024 (Approximate), Expires: 09/12/2025 Start: 09-12-2024 End: 09-12-2025 US Pelvis US Pelvis w/ TV Imaging Routine Dysmenorrhea Expected: 09/12/2024, Expires: 09/12/2025 [facility] Comment on above: Expected: 09/12/2024 , Expires: 09/12/2025 Start: 2017 Screening for malign ant neoplasm of breast Mammogram [facility] Start: 1977 Screening for malign ant neoplasm of colon [facility] CBC W Auto Different ial panel - Blood CBC and differential Lab Routine Dysmenorrhea Ordered: 09/12/2024 [facility] Work Phone: Comment on above: Ordered: 09/12/2024 hCG, quantitative, hCG, quantitative, Lab Routine Dysmenorrhea Ordered: 09/12/2024 [facility] Comment on above: Ordered: 09/12/2024 Hemoglobin A1c/Hemoglobin.total in Blood Hemoglobin A1c Lab Routine Dysmenorrhea Ordered: 09/12/2024 [facility] Comment on above: Ordered: 09/12/2024 Prothrombin time (PT ) in Blood by Coagulation assay Protime-INR Lab Routine Dysmenorrhea Ordered: 09/12/2024 [facility] Comment on above: Ordered: 09/12/2024 Thyrotropin [Units/volume] in Serum or Plasma TSH Lab Routine Dysmenorrhea Ordered: 09/12/2024 [facility] Comment on above: Ordered: 09/12/2024 Thyroxine (T4) free [Mass/volume] in Serum or Plasma T4, free Lab Routine Dysmenorrhea Ordered: 09/12/2024 [facility] Comment on above: Ordered: 09/12/2024 Immunizations Immunization Date Immunization Notes Care Provider Dyan pineda 10-29-2020 SARS-CoV-2 (COVID-19 ) mRNA BNT-162b2 vax [facility] 10-08-2020 SARS-CoV-2 (COVID-19 ) mRNA BNT-162b2 vax [facility] 09-26-2020 SARS-CoV-2 (COVID-19 ) mRNA BNT-162b2 vax [facility] 08-15-2012 tetanus toxoid, reduced diphtheria toxoid, and acellular pertussis vaccine, adsorbed [facility] NEGATED: Highlighted row has not occurred!05-27-2024 influenza virus vaccine, unspecified formulation Serafin Roberson [facility] NEGATED: Highlighted row has not occurred!05-30-2022 influenza virus vaccine, unspecified formulation Ting Muhammad [facility] NEGATED: Highlighted row has not occurred!04-24-2020 influenza virus vaccine, unspecified formulation [facility] NEGATED: Highlighted row has not occurred!06-28-2019 influenza virus vaccine, live, attenuated, for intranasal use [facility] Payers Date Payer Category Payer Self-pay 2024 Private Health Insurance [employer] [id number] 2024 Unknown [id number] 2023 Unknown [id number] 2023 Unknown [id number] 2017 Unknown 1977 Unknown [id number] 2.16.840.1.847720.3.579.2 .196 1977 Unknown [id number] 2.16.840.1.389036.3.579.2 .1977 Unknown [id number] 2.16.840.1.424960.3.579.2 .196 1977 Unknown [id number] 2.16.840.1.329012.3.579.2 .196 1977 Unknown [id number] 2.16.840.1.983232.3.579.2 .196 1977 Unknown [id number] 2.16.840.1.732575.3.579.2 .1977 Unknown [id number] 2.16.840.1.490200.3.579.2 .1977 Unknown [id number] 2.16.840.1.959986.3.579.2 .1977 Unknown [id number] 2.16.840.1.164367.3.579.2 .7 1977 Unknown [id number] 2.16.840.1.560648.3.579.2 .7 1977 Unknown [id number] 2.16.840.1.461695.3.579.2 1977 Unknown [id number] 2.16840.1.674478.3.579.2 1977 Unknown [id number] 2.16.840.1.502286.3.579.2 1977 Unknown [id number] 2.840.1.496484.3.579.2 1977 Unknown [id number] 2.16840.1.219974.3.579.2 1977 Unknown [id number] 2.840.1.409215.3.579.2 1977 Unknown [id number] 2.840.1.425963.3.579.2 1977 Unknown [id number] 07.10.830.1.250814.3.579.2 1977 Unknown [id number] 2.840.1.242355.3.579.2 1977 Unknown [id number] 2840.1.996485.3.579.2 1977 Unknown [id number] 840.1.659253.3.579.2 1977 Unknown [id number] 840.1.770347.3.579.2 1977 Unknown [id number] 2.840.1.036761.3.579.2 1977 Unknown [id number] 2.16840.1.085176.3.579.2 1977 Unknown [id number] 2.16840.1.663148.3.579.2 1977 Unknown [id number] 2840.1.733228.3.579.2 1977 Unknown [id number] 2.16840.1.131629.3.579.2 .727 Medicaid [employer] [id number] Unknown [id number] 2.16.840.1.101876.3.579.2 .531 Social History Date Type Detail Facility Start: 09-19-2020 End: 08-29-2024 Tobacco smoking status Ex-smoker (finding) [facility] Start: 04-23-2023 End: 09-12-2024 Sex Assigned At Female [facility] Tobacco smoking status Never [facility] [place] Sex Assigned At [facility] Start: 12-15-2011 End: 09-28-2024 Sex Female (finding) [facility] End: 06-18-2020 History of tobacco use Current smoker [facility] End: 06-18-2020 History of tobacco use Cigarette Smoker [facility] Start: 01-19-2023 Tobacco use and exposure Smokeless tobacco non-user [facility] Start: 04-23-2023 End: 09-12-2024 Alcoholic beverage intake Lifetime non-drinker (finding) [facility] Start: 04-23-2023 End: 09-12-2024 History of [address] function [facility] Start: 01-19-2023 Alcohol Comment Caffeine: 1-[address] [facility] Start: 1975 Sex assigned at Not on file [facility] Tobacco smoking stat [facility] Unknown if ever smoked [facility] Work Phone: Start: 1975 Sex Assigned At Female [facility] Medical Equipment Procedure Code Equipment Code Equipment Origin al Text Equipment Identifier Dates syringes, See Instructions, 1 kit(s), 1, syringes for B12 injections. 3 ml, 25 gauge, 1 inch needle qs for the B12 injections with 1 refill., [facility], Supply, 165, cm, 04/04/24 10:00:00 EST, Height/Length Dosing, 116.6, kg, 04/04/24 10:00:00 EST, Weight Dosing Start: 04-04-2024 syringes, See Instructions, 1 kit(s), 1, syringes for B12 injections. 3 ml, 25 gauge, 1 inch needle qs for the B12 injections with 1 refill., [facility], Supply, 165, cm, 04/04/24 10:00:00 EST, Height/Length Dosing, 116.6, kg, 04/04/24 10:00:00 EST, Weight Dosing Start: 04-04-2024 syringes, See Instructions, 1 kit(s), 1, syringes for B12 injections. 3 ml, 25 gauge, 1 inch needle qs for the B12 injections with 1 refill., [facility], Supply, 165, cm, 04/04/24 10:00:00 EST, Height/Length Dosing, 116.6, kg, 04/04/24 10:00:00 EST, Weight Dosing Start: 04-04-2024 syringes, See Instructions, 1 kit(s), 1, syringes for B12 injections. 3 ml, 25 gauge, 1 inch needle qs for the B12 injections with 1 refill., [facility], Supply, 165, cm, 04/04/24 10:00:00 EST, Height/Length Dosing, 116.6, kg, 04/04/24 10:00:00 EST, Weight Dosing Start: 04-04-2024 syringes, See Instructions, 1 kit(s), 1, syringes for B12 injections. 3 ml, 25 gauge, 1 inch needle qs for the B12 injections with 1 refill., [facility], Supply, 165, cm, 04/04/24 10:00:00 EST, Height/Length Dosing, 116.6, kg, 04/04/24 10:00:00 EST, Weight Dosing Start: 04-04-2024 syringes, See Instructions, 1 kit(s), 1, syringes for B12 injections. 3 ml, 25 gauge, 1 inch needle qs for the B12 injections with 1 refill., [facility], Supply, 165, cm, 04/04/24 10:00:00 EST, Height/Length Dosing, 116.6, kg, 04/04/24 10:00:00 EST, Weight Dosing Start: 04-04-2024 Functional Status Date Assessment Result Facility 10-04-2024 Functional Status N/A [facility] 07-08-2024 Functional Status N/A [facility] 07-05-2024 Functional Status N/A [facility] 06-06-2024 Functional Status N/A [facility] 06-03-2024 Functional Status N/A [facility] 05-27-2024 Functional Status N/A [facility] 11-09-2023 Functional Status N/A [facility] 10-14-2023 Functional Status N/A [facility] 01-16-2023 Functional Status N/A [facility] 12-30-2022 Functional Status N/A [facility] 12-10-2022 Functional Status N/A [facility] 12-09-2022 [facility] [facility]22 Functional Status N/A [facility] 11-13-2022 Functional Status N/A [facility] 11-04-2022 Functional Status N/A [facility] 10-03-2022 Functional Status N/A [facility] 09-04-2022 Functional Status N/A [facility] 08-14-2022 Functional Status N/A [facility] 08-04-2022 Functional Status N/A [facility] 07-09-2022 Functional Status N/A [facility] 06-30-2022 Functional Status N/A [facility] 06-17-2022 Functional Status N/A [facility] 05-30-2022 Functional Status N/A [facility] 05-20-2022 Functional Status N/A [facility] 12-23-2021 Functional Status N/A [facility] 12-03-2021 Functional Status N/A [facility] 12-02-2021 Functional Status N/A [facility] 11-28-2021 Functional Status N/A [facility] 11-21-2021 Functional Status N/A [facility] Clinical Notes 04-30-2021 to 09-28-2024 Norma Jodi, ALTHEA - 09/26/2024 1:30 PM EDTSsonal Zapata LPN - 09/12/2024 10:20 AM EDT Note Date & Type Note Facility 09-28-2024 Hospital Discharge instructions Follow Up Care 09/28/2024 13:33:04 With:Serafin Roberson DO, FAM, PED Address: [address] [place] [address] [id number] When:3 months Comments:3 month - controlled med - 20 min slotTo go instructions:Continue adipexTo continue on adipex long-term, you need to keep your weight below 243Read [place] of [place] for insight into how to optimize your weight loss and maximize the chance of long-term, lasting resultsWhen trying to get healthy / lose weight, making sleep a priority is essentialMake sure you're getting 7-9 hours of sleep most nights and waking up feeling rested most daysWhen you see providers outside of [facility], please request that they send office visit notes every time you're seen there - this helps us take better care of youF/u 3 months [facility] 09-26-2024 History of Present illness Narrative Associated Order(s): Endometrial biopsy Post-Procedure Diagnose(s): Pre-op examination; Menorrhagia with regular cycle; Abnormal uterine bleeding; Pelvic pain in female Reason for Appointment: Patient ID: Kayla Montana is a 48 y.o. female who presents for Pre-op Visit and Endometrial Biopsy Patient presents today for a Endometrial Ablation/ Pre-Operative appointment. MEDICATIONS Current Outpatient Medications Medication Instructions buPROPion XL (WELLBUTRIN XL) 300 mg, Oral, Daily cyanocobalamin (Vitamin B-12) 1000 MCG/ML injection Inject 1 mL IntraMuscular once monthly cyclobenzaprine (Flexeril) 10 MG tablet TAKE 1 TABLET BY MOUTH 3 TIMES A DAY NEEDED FOR SPASM DULoxetine (Cymbalta) [address] capsule Every 24 hours FLUoxetine (PROZAC) 30 mg, Oral, Daily RT fluticasone (Flonase) 50 MCG/ACT nasal spray Every 24 hours gabapentin (NEURONTIN) 600 mg, Oral, 2 times daily hydroCHLOROthiazide (HYDRODIURIL) 25 mg, Oral, Daily RT hydrOXYzine HCl (Atarax) 50 MG tablet TAKE 1 TABLET BY MOUTH EVERY DAY AT NOON NEEDED ibuprofen 800 mg, Oral meclizine (Antivert) 12.5 MG tablet 1/2-1 tablets Orally tid-qid prn dizziness for 30 day(s) metFORMIN (GLUCOPHAGE) 500 mg, Oral montelukast (SINGULAIR) 10 mg, Oral, Every evening phentermine (ADIPEX-P) 37.5 mg, Daily before breakfast potassium chloride ER (Micro-K) 10 MEQ ER capsule 10 mEq, Oral propranolol LA (INDERAL LA) 60 mg, Oral Protonix 40 MG EC tablet Every 24 hours ALLERGIES Allergies Allergen Reactions Pregabalin Unknown Sulfa Antibiotics Angioedema and Unknown SURGICAL HISTORY Past Surgical History: Procedure Laterality Date BACK SURGERY 2001 COLONOSCOPY 09/2019 DILATION AND CURETTAGE OF UTERUS EGD 06/2020 EGD 09/2019 ENDOMETRIAL BIOPSY 08/2017 decidualized endometrial tissue with marked neutrophilic infiltrate HYSTEROSCOPY 04/10/2023 with myosure HYSTEROSCOPY 04/10/2023 LUMBAR TRANSFORAMINAL EPIDURAL STEROID INJECTION 04/2020 using fluoroscopic guidance NERVE BLOCK 07/2019 with injection of lumbar spine using fluoroscopic guidance NE TONSILLECTOMY & ADENOIDECTOMY <AGE 14 1985 TRIGGER POINT INJECTION 07/2019 REVIEW OF SYSTEMS Review of Systems: Review of Systems Constitutional: Negative. HENT: Negative. Eyes: Negative. Respiratory: Negative. Cardiovascular: Negative. Gastrointestinal: Negative. Genitourinary: Positive for menstrual problem, pelvic pain and vaginal bleeding. Musculoskeletal: Negative. Skin: Negative. Neurological: Negative. All other systems reviewed and are negative. Hematological: Negative. Endocrine: Negative. Allergic/Immunologic: Negative. OBJECTIVE Objective: Physical Exam Constitutional: Appearance: Normal appearance. She is well-developed. Genitourinary: Vulva normal. Cardiovascular: Rate and Rhythm: Normal rate and regular rhythm. Pulmonary: Effort: Pulmonary effort is normal. Breath sounds: Normal breath sounds. Abdominal: General: Bowel sounds are normal. There is no distension. Palpations: Abdomen is soft. Tenderness: There is no abdominal tenderness. There is no guarding or rebound. Musculoskeletal: General: No swelling. Normal range of motion. Right lower leg: No edema. Left lower leg: No edema. Neurological: Mental Status: She is alert and oriented to person, place, and time. Skin: General: Skin is warm and dry. Psychiatric: Mood and Affect: Mood normal. Behavior: Behavior normal. Vitals and nursing note reviewed. Exam conducted with a coating machine operator present. Vitals: Estimated body mass index is 42.18 kg/m as calculated from the following: Height as of 04/23/23: 5' 5 . Weight as of this encounter: 253 lb 8 oz. BP: (!) 140/100 Patient's last menstrual period was 09/05/2024 (approximate). ASSESSMENT & PLAN Assessment/Plan Encounter Diagnosis: ICD-10-CM 1. Pre-op examination Z01.818 Endometrial biopsy 2. Menorrhagia with regular cycle N92.0 Endometrial biopsy 3. Abnormal uterine bleeding N93.9 Endometrial biopsy 4. Pelvic pain in female R10.2 Endometrial biopsy Endometrial biopsy Date/Time: 09/26/2024 3:31 PM Performed by: Dada Perkins DO Authorized by: Dada Perkins DO Consent: Consent obtained: written Consent given by: patient Alternatives discussed: observation Patient agrees, verbalizes understanding, and wants to proceed: yes Indications: Indications: abnormal uterine bleeding and other menstrual disorder Pre-procedure: Urine test: negative Procedure: A bimanual exam was performed: no Tenaculum used: yes A local block was performed: no Cervix dilated: no Number of passes: 1 Findings: Cervix: normal Specimen collected: specimen collected and sent to pathology EMBX: Patient was placed in dorsal lithotomy position with feet in stirrups. A sterile speculum was placed into the vagina and the cervix was visualized. The cervix was grasped with a single tooth tenaculum. The endometrial pipette was placed through the cervix into the uterus, endometrial curettage was performed and sampling was obtained, endometrial curettings were placed in formalin, and single tooth tenaculum was removed. Excellent hemostasis was assured. All instruments were removed from vagina. Pre Op: Patient is doing well but has complaints of menorrhagia, AUB and Pelvic Pain . I have discussed conservative management vs. surgical management with the patient in detail and patient desires surgical management at this time. Patient will undergo Endometrial Ablation with Elizabeth on 10/21/2024. Surgical consents were signed, mmc was reviewed, and patient is to proceed to [facility] OR. Patient does not need to have bilateral salpingectomy at time of procedure due to spouse having a vasectomy. Follow Up: Patient is to follow up between 1-2 weeks post operative to assess proper healing and recovery from procedure. Documented by Norma Zapata LPN on behalf of: Dada Perkins DO documented in this encounter [facility] 09-12-2024 History of Present illness Narrative Reason for Appointment: Patient ID: Kayla Montana is a 48 y.o. female who presents for Dysmenorrhea Patient presents today for Consult appointment. MEDICATIONS Current Outpatient Medications Medication Instructions buPROPion XL (WELLBUTRIN XL) 300 mg, Oral, Daily cyanocobalamin (Vitamin B-12) 1000 MCG/ML injection Inject 1 mL IntraMuscular once monthly cyclobenzaprine (Flexeril) 10 MG tablet TAKE 1 TABLET BY MOUTH 3 TIMES A DAY NEEDED FOR SPASM DULoxetine (Cymbalta) [address] capsule Every 24 hours FLUoxetine (PROZAC) 30 mg, Oral, Daily RT fluticasone (Flonase) 50 MCG/ACT nasal spray Every 24 hours gabapentin (NEURONTIN) 600 mg, Oral, 2 times daily hydroCHLOROthiazide (HYDRODIURIL) 25 mg, Oral, Daily RT hydrOXYzine HCl (Atarax) 50 MG tablet TAKE 1 TABLET BY MOUTH EVERY DAY AT NOON NEEDED ibuprofen 800 mg, Oral meclizine (Antivert) 12.5 MG tablet 1/2-1 tablets Orally tid-qid prn dizziness for 30 day(s) metFORMIN (GLUCOPHAGE) 500 mg, Oral montelukast (SINGULAIR) 10 mg, Oral, Every evening phentermine (ADIPEX-P) 37.5 mg, Daily before breakfast potassium chloride ER (Micro-K) 10 MEQ ER capsule 10 mEq, Oral propranolol LA (INDERAL LA) 60 mg, Oral Protonix 40 MG EC tablet Every 24 hours ALLERGIES Allergies Allergen Reactions Pregabalin Unknown Sulfa Antibiotics Angioedema and Unknown PROBLEMS Active Ambulatory Problems Diagnosis Date Noted Dysmenorrhea 09/12/2024 Pain in female genitalia on intercourse 09/12/2024 Resolved Ambulatory Problems Diagnosis Date Noted No Resolved Ambulatory Problems Past Medical History: Diagnosis Date Abnormal uterine bleeding Acanthosis nigricans Allergic asthma ([facility]) Allergic rhinitis due to pollen Arthritis of spine Chronic idiopathic constipation Cigarette smoker Colon polyp Cystocele without uterine prolapse Emphysema lung ([facility]) Fibrocystic breast changes Fibromyalgia OBI (generalized anxiety disorder) ([facility]) GERD (gastroesophageal reflux disease) Glucose intolerance Heart palpitations Hematoma Hemorrhoids Hemorrhoids Hirsutism HTN (hypertension) ([facility]) Hyperlipidemia ([facility]) Hypokalemia Iron deficiency Leg cramps Lumbar radiculopathy Major depressive disorder ([facility]) Microcytic anemia Migraines ([facility]) Morbid obesity ([facility]) Morbid obesity with BMI of 45.0-49.9, adult ([facility]) Orthostatic syncope ERNST (obstructive sleep apnea) PCOS (polycystic ovarian syndrome) Polycystic ovarian syndrome Pressure sore of hip Schatzki's ring Sinusitis Vertigo Vitamin B 12 deficiency HISTORY PAST MEDICAL HISTORY SOCIAL HISTORY Past Medical History: Diagnosis Date Abnormal uterine bleeding Acanthosis nigricans Allergic asthma ([facility]) intermittent Allergic rhinitis due to pollen Arthritis of spine Chronic idiopathic constipation Cigarette smoker Colon polyp Cystocele without uterine prolapse Emphysema lung ([facility]) Fibrocystic breast changes Fibromyalgia OBI (generalized anxiety disorder) ([facility]) GERD (gastroesophageal reflux disease) Glucose intolerance Heart palpitations Hematoma Nontraumatic hematoma Hemorrhoids Hemorrhoids Hirsutism HTN (hypertension) ([facility]) Hyperlipidemia ([facility]) Hypokalemia Iron deficiency Leg cramps Lumbar radiculopathy Major depressive disorder ([facility]) Microcytic anemia Migraines ([facility] Morbid obesity ([facility]) Morbid obesity with BMI of 45.0-49.9, adult ([facility]) Orthostatic syncope ERNST (obstructive sleep apnea) PCOS (polycystic ovarian syndrome) Polycystic ovarian syndrome Pressure sore of hip Schatzki's ring Sinusitis Vertigo Vitamin B 12 deficiency Social History Tobacco Use Smoking status: Former Current packs/day: 0.00 Types: Cigarettes Quit date: 06/18/2020 Years since quittin.2 Smokeless tobacco: Never Substance Use Topics Alcohol use: Never Comment: Caffeine: 1-2 cups per day Drug use: Never FAMILY HISTORY Family History Problem Relation Name Age of Onset Hypertension Mother Multiple sclerosis Mother Hypertension Father Hyperlipidemia Father Cervical cancer Sister SURGICAL HISTORY Past Surgical History: Procedure Laterality Date BACK SURGERY 2002 COLONOSCOPY 09/2019 DILATION AND CURETTAGE OF UTERUS EGD 06/2020 EGD 09/2019 ENDOMETRIAL BIOPSY 08/2017 decidualized endometrial tissue with marked neutrophilic infiltrate HYSTEROSCOPY 04/10/2023 with myosure HYSTEROSCOPY 04/10/2023 LUMBAR TRANSFORAMINAL EPIDURAL STEROID INJECTION 04/2020 using fluoroscopic guidance NERVE BLOCK 07/2019 with injection of lumbar spine using fluoroscopic guidance NE TONSILLECTOMY & ADENOIDECTOMY <AGE 14 1985 TRIGGER POINT INJECTION 07/2019 REVIEW OF SYSTEMS Review of Systems: Review of Systems Constitutional: Negative. HENT: Negative. Eyes: Negative. Respiratory: Negative. Cardiovascular: Negative. Gastrointestinal: Positive for nausea. Genitourinary: Positive for menstrual problem and pelvic pain. Musculoskeletal: Negative. Skin: Negative. Neurological: Negative. All other systems reviewed and are negative. Hematological: Negative. Endocrine: Negative. Allergic/Immunologic: Negative. OBJECTIVE Objective: Physical Exam Constitutional: Appearance: Normal appearance. She is well-developed. Cardiovascular: Rate and Rhythm: Normal rate and regular rhythm. Pulmonary: Effort: Pulmonary effort is normal. Breath sounds: Normal breath sounds. Abdominal: General: Bowel sounds are normal. There is no distension. Palpations: Abdomen is soft. Tenderness: There is no abdominal tenderness. There is no guarding or rebound. Musculoskeletal: General: No swelling. Normal range of motion. Right lower leg: No edema. Left lower leg: No edema. Neurological: Mental Status: She is alert and oriented to person, place, and time. Skin: General: Skin is warm and dry. Psychiatric: Mood and Affect: Mood normal. Behavior: Behavior normal. Vitals and nursing note reviewed. Exam conducted with a coating machine operator present. Vitals: Estimated body mass index is 43.02 kg/m as calculated from the following: Height as of 04/23/23: 5' 5 . Weight as of this encounter: 258 lb 8 oz. BP: 122/84 Patient's last menstrual period was 09/05/2024 (approximate). ASSESSMENT & PLAN ICD-10-CM 1. Dysmenorrhea N94.6 CBC and differential TSH hCG, quantitative, Protime-INR T4, free APTT Hemoglobin A1c US Pelvis w/ TV APTT 2. Pain in female genitalia on intercourse N94.10 Patient presents to office with spouse today to discuss heavy/painful cycles. Patient voiced that the cycles and symptoms cause nausea and are debilitating. Discussed surgical management with patient and Endometrial Ablation. Discussed if no improvement then patient would discuss possible hysterectomy in the future. Patient to have US and labs done, return to clinic for Pre-OP and Endometrial Biopsy. Patient feels as though her clots have become larger after D&C. Documented by Norma Zapata LPN on behalf of: Dada Perkins DO documented in this encounter [facility] 08-29-2024 Hospital Discharge instructions Patient Education 08/29/2024 10:54:12 Intramuscular Injection Instructions Using a Syringe and Vial, Adult Intramuscular Injection Instructions Using a Syringe and Vial, Adult An intramuscular (IM) injection is a shot of medicine that is given into a muscle. An IM injection may be given when medicine needs to start working right away or when medicine cannot be given any other way. You will use a single-use syringe to give the IM injection. The medicine comes in a bottle (vial). You will fill the syringe with medicine from the vial. Before your first injection, your health care provider will show you or your caregiver how to give the injection at home. Use only the syringe, needle, and medicine that your provider prescribes. Supplies needed: Medicine guide or insert that came with the syringe. ?Follow directions from the guide about how to prepare and give the injection. This is important because the directions may be different for each medicine. Medicine prescribed by your provider. Syringe. Needle. Use the needle length and size (gauge) that your provider or pharmacist gives to you. Do not reuse needles. Use each needle only once. Alcohol wipes. Bandage. A container to put used syringes. ?This may be a sharps container or a hard plastic container that has a secure lid, such as an empty laundry detergent bottle. How to choose a site for injection Follow instructions from your provider about where to give the injection. Generally: You may give the injection in the hip. You may also give the injection in the upper arm or outer thigh, depending on the amount of medicine in the injection and your muscle mass. Do not inject the medicine in the same spot each time. Do not inject over areas of skin that are open, infected, or bruised. How to locate an injection site Follow these instructions to find the exact location for each injection site. Outer thigh 1.Imagine that the thigh is divided into three equal sections (thirds) between the knee and the hip. 2.The injection site is in the middle third, on the outer side of the thigh. Upper arm 1.Find the bony point at the top of the arm (acromion process). Place two fingers just under the acromion process. 2.Under the two fingers, picture an upside-down triangle over the arm muscle. The injection site is in the middle of the triangle. Preparing to give an IM injection 1.Check the medicine and syringe for any damage. Do not give the medicine if you see these things: Cracked glass vial. Cloudy medicine. Clumps or solids floating in the medicine. ?If you see these things, contact your pharmacy or provider. 2.Get in a comfortable position so that the muscle site is relaxed. This depends on the site of the injection. How to give an IM injection using medicine from a vial 1.Wash your hands with soap and water for at least 20 seconds. You may also use a hand trouble locater. 2.Wipe the injection site with an alcohol wipe. Let the site air-dry. 3.Gently roll the medicine vial between your hands to mix it. Do not shake the vial. 4.If there is a plastic covering on the vial, remove it. Clean the top rubber part of the vial with an alcohol wipe. 5.Remove the plastic cover from the needle on the syringe. Do not let the needle touch anything. 6.Pull the plunger back to draw air into the syringe. Stop the plunger when the dose indicator gets to the line that is the same as your medicine dose. 7.Push the needle through the rubber on the top of the vial. Do not turn the vial over. 8.Push the plunger in all the way. This pushes air into the vial. 9.While the needle is still in the vial, turn the vial upside-down and hold it at eye level. 10.Pull back slowly on the plunger to draw medicine into the syringe. Stop when the dose indicator is at the correct amount of medicine needed. 11.Remove the needle from the vial. Do not let the needle touch anything. 12.Hold the syringe with the needle pointing up. Check the syringe for any remaining air bubbles. If there are air bubbles, flick the syringe with your finger until the air bubbles rise to the top. Then, gently push on the plunger until you can see a drop of medicine appear at the tip of the needle. This will clear any remaining air bubbles from the syringe. 13.Hold the syringe in your writing hand like a pencil. 14.Gently but quickly, put the needle straight into the skin. The needle should be at a 90-degree angle to the skin. Push the needle all the way through the skin and into the muscle. Continue to hold the syringe with your writing hand. If told, use your other hand to pull back slightly on the plunger to see if any blood enters the syringe. If there is blood, do not inject the medicine. Remove the needle and start over with a new needle and syringe. Most medicines will not require that you do this step. 15.Use the thumb of your writing hand to push the plunger until the syringe is empty. If the medicine is a gel, you may need to push harder on the plunger to press the medicine out of the syringe and into the muscle. 16.Pull the needle straight out of the skin. 17.If there is bleeding: Press and hold the alcohol wipe over the injection site until bleeding stops. Do not rub the area. Cover the injection site with a bandage, if needed. 18.Write down the date, time, and location of each injection that you give. This is important. 19.If more than one injection is needed, give an injection at least 1 inch (2.5 cm) away from the previous injection site. How to safely throw away the supplies If you are using a syringe that does not have a safety system for shielding the needle after injection: Do not recap the needle. Place the syringe and needle in the disposal container. If your syringe has a safety system for shielding the needle after injection: Firmly push down on the plunger after you complete the injection. The protective sleeve will automatically cover the needle, and you will hear a click. The click means that the needle is safely covered. Follow the disposal regulations for the area where you live. Do not use any syringe or needle more than one time. You may throw the empty medicine vial in the trash. Contact a health care provider if: You have trouble giving the injection. You think that the injection was not given correctly. You have trouble with any of the supplies. The medicine causes side effects. Rashes develop on the skin. A fever develops. The condition that is being treated gets worse. Get help right away if: You get any of these symptoms after the injection is given: ?Trouble breathing. ?Chest pain. ?A rash over most or all of the body. ?Swelling of the lips or tongue. ?Trouble swallowing. These symptoms may be an emergency. Get help right away. Call 911. Do not wait to see if the symptoms will go away. Do not drive yourself to the hospital. This information is not intended to replace advice given to you by your health care provider. Make sure you discuss any questions you have with your health care provider. Document Revised: 03/06/2023 Document Reviewed: 03/06/2023 [employer] Patient Education [address] [employer] [facility] 08-29-2024 Note Oncology Progress No te Chief Complaint Iron Deficiency anemia; here to go over results. Diagnoses 1. Vitamin B 12 deficiency (E53.8: Deficiency of other specified B group vitamins) 2. Iron deficiency anemia (D50.9: Iron deficiency anemia, unspecified) Oncological History/ROS/PE/Assessment and Plan Diagnoses 1. Vitamin B 12 deficiency, (E53.8: Deficiency of other specified B group vitamins)Folate deficiency Ordered: cyanocobalamin, 1,000 mcg = 1 mL, Injection, IntraMuscular, Day of Tx, Stop date 04/04/24 10:52:00 EST, Routine, Start date 04/04/24 10:52:00 EST Zero Hour, Day of Tx Adult Chemotherapy Hypersensitivity Management CBC w/ Auto Diff Comprehensive Metabolic Panel Ferritin Folate Level Iron Level Iron Percent Saturation ONC Office Visit 20 Min Transferrin Vitamin B12 Level 2. Iron deficiency anemia (D50.9: Iron deficiency anemia, unspecified) Ordered: CBC w/ Auto Diff Comprehensive Metabolic Panel Ferritin Folate Level Iron Level Iron Percent Saturation ONC Office Visit 20 Min Transferrin Vitamin B12 Level Oncological History/ROS/PE/Assessment and Plan 44-year-old female, primary patient of Dr. Eckert. Past medical history includes obstructive sleep apnea, elevated BMI, PCOS, gastroesophageal reflux disease, chronic smoker, heart palpitations, hypertension, depression, Outpatient medications include cetirizine, Claritin, Cymbalta, Flonase, gabapentin, lisinopril, meclizine, Metformin, olanzapine, Prozac, Protonix, rosuvastatin, Skelaxin, Topamax, vitamin B12 1000 mg p.o. daily. Reviewed CBC from July 12, 2020 which shows normal white blood cell count, hemoglobin of 9.5 with an MCV of 65.2. Platelet count of 341,000. She did have a reticulocyte count of only 1.2%. Creatinine of 0.8 with normal liver function studies, normal total protein and albumin. Iron was low at 29 with an elevated iron binding capacity. TSH was normal at 1.7. Vitamin B12 and folate were well within normal limits. A ferritin was tested and was 4. Hemoglobin electrophoresis was normal. quit smoking 05/2020. She had an EGD and colonoscopy in September 2019. She follows with Dr. Weir. She was found to have a Schatzki's ring and esophagitis. She also had small gastric polyps He has recently seen Dr. Larios of cardiology and had normal 24-hour Holter monitor and has ordered a treadmill stress echo. She was being worked up for palpitations and chest pain. She does have heavy periods. She is recently seen her primary care provider and noted a lump in her groin area radiating down her leg. She has begun oral iron supplementation recently. MRI of the lumbar spine from July 25, 2020 showed multilevel degenerative changes with postsurgical changes at L4-L5. No pica symptoms. 08/09/20 has irregular periods from PCOS maybe she only has 4 or 5 periods a year. She has very heavy for a few days then light for a few days then stop. Until a few years ago she had more frequent extremely heavy periods. no black or bloody stools. repeat EGD in jun 2020. 11/22/20 she is doing ok. energy still low. QUIT SMOKING IN MAY. Her is losing weight and she would like to as well. She still has heavy periods for about two days, changing tampons hourly sometimes. No black or dark stools. 04/30/21 continues with heavy periods. no black or bloody stool. feels well. 04/30/22 She had injectafer last in november 2020. she feels ok overall. Tired recently. not much appetitie. 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 She goes through ultra tampons in less than an hour and wears 4 pads to bed for about 3 days and then less for 3 more days then stops. 11/13/22 had 2 episodes where she had bruises that weren't from any trauma that she can recall one under her arm pit, after massaging the area, that was large and red/purple. went away after 1-1.5 weeks another time she was in the tub and resting her arm on the tub. When she got out her arm was all red where she had rested it on the tub neither of these have returned after repeat massage and sitting in the tub. No other new bruises or concerns she feels ok otherwise work-up was negative including coags, esr, crp, pepe, von willebrand and factor 5 leiden 05/04/23 the day after her last iron infusion, she started her period and it lasted 3 weeks. She had a D&C in the middle of March and has not had bleeding since has no energy has not had any major bruises since last visit denies shortness of breath or chest pain eating and drinking ok, she has dry mouth so drinks a ton of water. Doesn't have much of an appetite currently. Has had intermittent diarrhea the last few weeks, still with frequent nausea labs with low iron saturation, ferritin dropped from last visit and likely partially elevated from other acute inflammation. hgb still WNL but lower than previous result 04/04/24 energy has not been go (more content not included)... [facility] 08-12-2024 Note Patient Education Pulmonary Medicine Acute Bronchitis, Adult Acute bronchitis is sudden inflammation of the main airways (bronchi) that come off the windpipe (trachea) in the lungs. The swelling causes the airways to get smaller and make more mucus than normal. This can make it hard to breathe and can cause coughing or noisy breathing (wheezing). Acute bronchitis may last several weeks. The cough may last longer. Allergies, asthma, and exposure to smoke may make the condition worse. What are the causes? This condition can be caused by germs and by substances that irritate the lungs, including: ??? Cold and flu viruses. The most common cause of this condition is the virus that causes the common cold. ??? Bacteria. This is less common. ??? Breathing in substances that irritate the lungs, including: ? Smoke from cigarettes and other forms of tobacco. ? Dust and pollen. ? Fumes from household cleaning products, gases, or burned fuel. ? Indoor or outdoor air pollution. What increases the risk? The following factors may make you more likely to develop this condition: ??? A weak body's defense system, also called the immune system. ??? A condition that affects your lungs and breathing, such as asthma. What are the signs or symptoms? Common symptoms of this condition include: ??? Coughing. This may bring up clear, yellow, or green mucus from your lungs (sputum). ??? Wheezing. ??? Runny or stuffy nose. ??? Having too much mucus in your lungs (chest congestion). ??? Shortness of breath. ??? Aches and pains, including sore throat or chest. How is this diagnosed? This condition is usually diagnosed based on: ??? Your symptoms and medical history. ??? A physical exam. You may also have other tests, including tests to rule out other conditions, such as pneumonia. These tests include: ??? A test of lung function. ??? Test of a mucus sample to look for the presence of bacteria. ??? Tests to check the oxygen level in your blood. ??? Blood tests. ??? Chest X-ray. How is this treated? Most cases of acute bronchitis clear up over time without treatment. Your health care provider may recommend: ??? Drinking more fluids to help thin your mucus so it is easier to cough up. ??? Taking inhaled medicine (inhaler) to improve air flow in and out of your lungs. ??? Using a vaporizer or a humidifier. These are machines that add water to the air to help you breathe better. ??? Taking a medicine that thins mucus and clears congestion (expectorant). ??? Taking a medicine that prevents or stops coughing (cough suppressant). It is not common to take an antibiotic medicine for this condition. Follow these instructions at home: ??? Take fcaz-gdv-mxnnnru and prescription medicines only as told by your health care provider. ??? Use an inhaler, vaporizer, or humidifier as told by your health care provider. ??? Take two teaspoons (10 mL) of honey at bedtime to lessen coughing at night. ??? Drink enough fluid to keep your urine pale yellow. ??? Do not use any products that contain nicotine or tobacco. These products include cigarettes, chewing tobacco, and vaping devices, such as e-cigarettes. If you need help quitting, ask your health care provider. ??? Get plenty of rest. ??? Return to your normal activities as told by your health care provider. Ask your health care provider what activities are safe for you. ??? Keep all follow-up visits. This is important. How is this prevented? To lower your risk of getting this condition again: ??? Wash your hands often with soap and water for at least 20 seconds. If soap and water are not available, use hand trouble locater. ??? Avoid contact with people who have cold symptoms. ??? Try not to touch your mouth, nose, or eyes with your hands. ??? Avoid breathing in smoke or chemical fumes. Breathing smoke or chemical fumes will make your condition worse. ??? Get the flu shot every year. Contact a health care provider if: ??? Your symptoms do not improve after 2 weeks. ??? You have trouble coughing up the mucus. ??? Your cough keeps you awake at night. ??? You have a fever. Get help right away if you: ??? Cough up blood. ??? Feel pain in your chest. ??? Have severe shortness of breath. ??? Faint or keep feeling like you are going to faint. ??? Have a severe headache. ??? Have a fever or chills that get worse. These symptoms may represent a serious problem that is an emergency. Do not wait to see if the symptoms will go away. Get medical help right away. Call your local emergency services (911 in the [place] Do not drive yourself to the hospital. Summary ??? Acute bronchitis is inflammation of the main airways (bronchi) that come off the windpipe (trachea) in the lungs. The swelling causes the airways to get smaller and make more mucus than normal. ??? Drinking (more content not included)... [facility] 07-08-2024 Hospital Discharge instructions Patient Education 07/08/2024 10:22:10 Attention Deficit Hyperactivity Disorder, Adult Attention Deficit Hyperactivity Disorder, Adult Attention deficit hyperactivity disorder (ADHD) is a mental health disorder that starts during childhood. For many people with ADHD, the disorder continues into the adult years. Treatment can help you manage your symptoms. There are three main types of ADHD: Inattentive. With this type, adults have difficulty paying attention. This may affect cognitive abilities. Hyperactive-impulsive. With this type, adults have a lot of energy and have difficulty controlling their behavior. Combination type. Some people may have symptoms of both types. What are the causes? The exact cause of ADHD is not known. Most experts believe a person's genes and environment possibly contribute to ADHD. What increases the risk? The following factors may make you more likely to develop this condition: Having a first-degree relative such as a parent, brother, or sister, with the condition. Being born before 37 weeks of (prematurely) or at a low weight. Being born to a mother who smoked tobacco or drank alcohol during . Having experienced a brain injury. Being exposed to lead or other toxins in the womb or early in life. What are the signs or symptoms? Symptoms of this condition depend on the type of ADHD. Symptoms of the inattentive type include: Difficulty paying attention or following instructions. Often making simple mistakes. Being disorganized. Avoiding tasks that require time and attention. Losing and forgetting things. Symptoms of the hyperactive-impulsive type include: Restlessness. Talking out of turn, interrupting others, or talking too much. Difficulty with: ?Sitting still. ?Feeling motivated. ?Relaxing. ?Waiting in line or waiting for a turn. People with the combination type have symptoms of both of the other types. In adults, this condition may lead to certain problems, such as: Keeping jobs. Performing tasks at work. Having stable relationships. Being on time or keeping to a schedule. How is this diagnosed? This condition is diagnosed based on your current symptoms and your history of symptoms. The diagnosis can be made by a health care provider such as a primary care provider or a mental health health care consultant. Your health care provider may use a symptom checklist or a behavior rating scale to evaluate your symptoms. Your health care provider may also want to talk with people who have observed your behaviors throughout your life. How is this treated? This condition can be treated with medicines and behavior therapy. Medicines may be the best option to reduce impulsive behaviors and improve attention. Your health care provider may recommend: Stimulant medicines. These are the most common medicines used for adult ADHD. They affect certain chemicals in the brain (neurotransmitters) and improve your ability to control your symptoms. A non-stimulant medicine. These medicines can also improve focus, attention, and impulsive behavior. It may take weeks to months to see the effects of this medicine. Counseling and behavioral management are also important for treating ADHD. Counseling is often used along with medicine. Your health care provider may suggest: Cognitive behavioral therapy (CBT). This type of therapy teaches you to replace negative thoughts and actions with positive thoughts and actions. When used as part of ADHD treatment, this therapy may also include: ?Coping strategies for organization, time management, impulse control, and stress reduction. ?Mindfulness and meditation training. Behavioral management. You may work with a life skills coach who is specially trained to help people with ADHD manage and organize activities and function more effectively. Follow these instructions at home: Medicines Take tral-fzq-kzfxghe and prescription medicines only as told by your health care provider. Talk with your health care provider about the possible side effects of your medicines and how to manage them. Alcohol use Do not drink alcohol if: ?Your health care provider tells you not to drink. ?You are , may be , or are planning to become . If you drink alcohol: ?Limit how much you use to: ?0 1 drink a day for women. ?0 2 drinks a day for men. ?Know how much alcohol is in your drink. In the [place] one drink equals one 12 oz bottle of beer (355 mL), one 5 oz glass of wine (148 mL), or one 1 oz glass of hard liquor (44 mL). Lifestyle Do not use illegal drugs. Get enough sleep. Eat a healthy diet. Exercise regularly. Exercise can help to reduce stress and anxiety. General instructions Learn as much as you can about adult ADHD, and work closely with your health care providers to find the treatments that work best for you. Follow the same schedule each day. Use reminder devices like notes, calendars, and phone apps to stay on time and organized. Keep all follow-up visits. Your health care provider will need to monitor your condition and adjust your treatment over time. Where to find more information A health care provider may be able to recommend resources that are available online or over the phone. You could start with: Attention Deficit Disorder Association (ADDA): add.org National [place] of Mental Health (NIMH): nimh.nih.gov Contact a health care provider if: Your symptoms continue to cause problems. You have side effects from your medicine, such as: ?Repeated muscle twitches, coughing, or speech outbursts. ?Sleep problems. ?Loss of appetite. ?Dizziness. ?Unusually fast heartbeat. ?Stomach pains. ?Headaches. You are struggling with anxiety, depression, or substance abuse. Get help right away if: You have a severe reaction to a medicine. This symptom may be an emergency. Get help right away. Call 911. Do not wait to see if the symptom will go away. Do not drive yourself to the hospital. Take one of these steps if you feel like you may hurt yourself or others, or have thoughts about taking your own life: Go to your nearest emergency room. Call 911. Call the National Suicide Prevention Lifeline at or 112. This is open 24 hours a day Text the Crisis Text Line at 506363. Summary ADHD is a mental health disorder that starts during childhood and often continues into your adult years. The exact cause of ADHD is not known. Most experts believe genetics and environmental factors contribute to ADHD. There is no cure for ADHD, but treatment with medicine, cognitive behavioral therapy, or behavioral management can help you manage your condition. This information is not intended to replace advice given to you by your health care provider. Make sure you discuss any questions you have with your health care provider. Document Revised: 08/29/2022 Document Reviewed: 08/29/2022 [employer] Patient Education 2023 [employer] Follow Up Care 05/27/2024 10:19:50 With:Serafin Roberson DO, FAM, PED Address: [address] [place] [address] [address] [place] [address] [phone] When:3 months Comments:20 min slotTo go instructions:Increase bupropion to 300mgWe adjusted your med list to show that you're taking 20mg of prozac------*When you see providers outside of [facility], please request that they send office visit notes every time you're seen there - this helps us take better care of youScreening guidelines:Colon cancer screening starts at age 45 for most people; cologuard every three years or colonoscopy every ten years (for average risk patients)Breast cancer screening; reasonable to consider screening between 40-49; every woman age 50-74 should undergo screening mammogram every 1-2 yearsDental exams and cleanings every 6 months is recommended - oral health is a predictor of your futureSmokers who have averaged a pack a day for over twenty years should have annual low dose Chest CT to screen for lung cancer starting at age 50Follow up 3 months [facility] [place] 07-08-2024 Note Patient Education Mental and Behavioral Health Attention Deficit Hyperactivity Disorder, Adult Attention deficit hyperactivity disorder (ADHD) is a mental health disorder that starts during childhood. For many people with ADHD, the disorder continues into the adult years. Treatment can help you manage your symptoms. There are three main types of ADHD: ??? Inattentive. With this type, adults have difficulty paying attention. This may affect cognitive abilities. ??? Hyperactive-impulsive. With this type, adults have a lot of energy and have difficulty controlling their behavior. ??? Combination type. Some people may have symptoms of both types. What are the causes? The exact cause of ADHD is not known. Most experts believe a person's genes and environment possibly contribute to ADHD. What increases the risk? The following factors may make you more likely to develop this condition: ??? Having a first-degree relative such as a parent, brother, or sister, with the condition. ??? Being born before 37 weeks of (prematurely) or at a low weight. ??? Being born to a mother who smoked tobacco or drank alcohol during . ??? Having experienced a brain injury. ??? Being exposed to lead or other toxins in the womb or early in life. What are the signs or symptoms? Symptoms of this condition depend on the type of ADHD. Symptoms of the inattentive type include: ??? Difficulty paying attention or following instructions. ??? Often making simple mistakes. ??? Being disorganized. ??? Avoiding tasks that require time and attention. ??? Losing and forgetting things. Symptoms of the hyperactive-impulsive type include: ??? Restlessness. ??? Talking out of turn, interrupting others, or talking too much. ??? Difficulty with: ? Sitting still. ? Feeling motivated. ? Relaxing. ? Waiting in line or waiting for a turn. People with the combination type have symptoms of both of the other types. In adults, this condition may lead to certain problems, such as: ??? Keeping jobs. ??? Performing tasks at work. ??? Having stable relationships. ??? Being on time or keeping to a schedule. How is this diagnosed? This condition is diagnosed based on your current symptoms and your history of symptoms. The diagnosis can be made by a health care provider such as a primary care provider or a mental health health care consultant. Your health care provider may use a symptom checklist or a behavior rating scale to evaluate your symptoms. Your health care provider may also want to talk with people who have observed your behaviors throughout your life. How is this treated? This condition can be treated with medicines and behavior therapy. Medicines may be the best option to reduce impulsive behaviors and improve attention. Your health care provider may recommend: ??? Stimulant medicines. These are the most common medicines used for adult ADHD. They affect certain chemicals in the brain (neurotransmitters) and improve your ability to control your symptoms. ??? A non-stimulant medicine. These medicines can also improve focus, attention, and impulsive behavior. It may take weeks to months to see the effects of this medicine. Counseling and behavioral management are also important for treating ADHD. Counseling is often used along with medicine. Your health care provider may suggest: ??? Cognitive behavioral therapy (CBT). This type of therapy teaches you to replace negative thoughts and actions with positive thoughts and actions. When used as part of ADHD treatment, this therapy may also include: ? Coping strategies for organization, time management, impulse control, and stress reduction. ? Mindfulness and meditation training. ??? Behavioral management. You may work with a life skills coach who is specially trained to help people with ADHD manage and organize activities and function more effectively. Follow these instructions at home: Medicines ??? Take kbha-pbx-vahqsnj and prescription medicines only as told by your health care provider. ??? Talk with your health care provider about the possible side effects of your medicines and how to manage them. Alcohol use ??? Do not drink alcohol if: ? Your health care provider tells you not to drink. ? You are , may be , or are planning to become . ??? If you drink alcohol: ? Limit how much you use to: ? 0?1 drink a day for women. ? 0?2 drinks a day for men. ? Know how much alcohol is in your drink. In the [place] one drink equals one 12 oz bottle of beer (355 mL), one 5 oz glass of wine (148 mL), or one 1? oz glass of hard liquor (44 mL). Lifestyle ??? Do not use illegal drugs. ??? Get enough sleep. ??? Eat a healthy diet. ??? Exercise regularly. Exercise can help to reduce stress and anxiety. General instructions ??? Learn as much as you can about adult ADHD, and work closely with y (more content not included)... [facility] 07-05-2024 Evaluation + Plan note Extrac divine from: Title:Pain Managment Follow up Author:Alyssa Gandhi Date:07/05/24 Impression and Plan Patient is a 48-year-old female with a past medical history significant for cervical dystonia, migraine headaches, right hip pain, lumbar neuritis and fibromyalgia. In regards to her cervical dystonia and muscular discomfort she is going to undergo cervical/trapezius trigger point injection. Please refer to separate report. In regards to her hip pain, I once again recommended a right hip x-ray. This we done for possible injection options versus surgical consultation depend on the results. Patient will get this done before her next appointment. In regards to her lumbar neuritis and fibromyalgia we discussed the injection but at this time, Dr. Gandara is not covered with her insurance. We will await this to see if we can get him covered with that insurance. In the meantime she is going to increase the gabapentin. She is going to use 300 mg the morning and 1200 mg at night. CARLTON score: 30%. Follow-up in 4 to 6 weeks. Call clinic in the interim should she require anything from our services. OARRS reviewed. Gabapentin refill sent. Future Appointments Appointment Date:07/08/2024 09:20:00 AM Scheduled Provider:Serafin Roberson DO Location:[facility] [place] Appointment Type:FM Open Appointment Date:08/08/2024 08:30:00 AM Scheduled Provider:Alyssa Young PA-C Location:.[facility] [place] Appointment Type:Pain Management - Follow Up (FT) Appointment Date:08/08/2024 11:20:00 AM Scheduled Provider:Jeffy Coffman MD Location:.ONCOLOGY Appointment Type:ONC Office Visit 20 (FT) Future Scheduled Tests Laboratory* CBC w/ Auto Diff 07/04/24 * Comprehensive Metabolic Panel 07/04/24 * Ferritin 07/04/24 * Folate Level 07/04/24 * Iron Level 07/04/24 * Iron Percent Saturation 07/04/24 * Transferrin 07/04/24 * Vitamin B12 Level 07/04/[address] [facility] 02-11-2025 NoteConsultation Note Patient: KAYLA MONTANA Age: 48 years Sex: Female : 1975 Associated Diagnoses: None Author: Alyssa Young PA-C Subjective Chief complaint 07/05/2024 8:48 EST neck and shoulder pain . Patient is a 48-year-old female following up today after increasing her gabapentin, getting a righthip x-ray and to undergo cervical/trapezius trigger point injections. Unfortunate, she forgot to increase the gabapentin and she forgot to get the right hip x-ray. She would however like to pursue the cervical/trapezius trigger point injections that were recommended at her last appointment. She continues to have right greater than left-sided shoulder and neck pain. She states that the muscles getvery tense and then lead to headaches. She rates this a 3???11/01. She has taken Tylenol, Excedrin, Advil, naproxen, and other qkra-yyz-wnieowq medications that any relief. She is not able to use Lyrica due to side effects. She is gabapentin. 1200 mg at bedtime. Historically, some injections to be done in the OR have been ordered but due to some issues with her insurance and then Dr. Gandara's coverage these have not been done. She continues to have right lower back pain with right groin pain and right radiating leg pain that she also rates a 3???6/10. She would be interested in undergoing the previously ordered transforaminal epidural but wants to make sure he is covered with her insurance first and foremost At this time, she would like to have trigger point injections done. Please refer to separate report. Health Status Allergies: Allergic Reactions (Selected) Severity Not Documented Lyrica- Unknown. Sulfa drugs- Angioedema., Allergies (2) Active Severity Reaction sulfa drugs angioedema Lyrica unknown Current medications: (Selected) Inpatient Medications Ordered Zero Hour: Day of Tx Prescriptions Prescribed Albuterol (Eqv-ProAir HFA) 90 mcg/inh inhalation aerosol: 2 puff(s), Inhalation, q6hr, 18 gm, Refill(s) 0, [facility]/pharmacy #[id number], 165, cm, 11/09/23 16:50:00 EDT, Height/Length Dosing, 116.7, kg, 11/09/23 16:50:00 EDT, Weight Dosing FLUoxetine 20 mg Cap: 20 mg = 1 cap(s), Oral, Daily, # 30 cap(s), Refills(s) 0, other reason (Rx) Flonase 0.05 mg/inh [place]: 2 spray(s), Nasal, Daily, 16 gram, Refill(s) 5, each nostril, [facility]/pharmacy #[id number], 165, cm, 05/30/22 9:05:00 EST, Height/Length Dosing, 125, kg, 05/30/22 9:05:00 EST, WeightDosing Protonix 40 mg Tab-DR: 40 mg, Oral, Daily, # 90 tab(s), Refills(s) 1, Pharmacy: [facility]/pharmacy #[id number],165, cm, 05/04/23 10:42:00 EST, Height/Length Dosing, 122, kg, 05/04/23 10:42:00 EST, Weight Dosing Singulair 10 mg Tab: 10 mg = 1 tab(s), Oral, qPM, # 90 tab(s), Refills(s) 4, Pharmacy: [facility], 165, cm, 06/03/24 13:33:00 EST, Height/Length Dosing, 118.7, kg, 06/03/24 13:33:00 EST, Weight Dosing buPROPion 150 mg/24 hours XL Tab: 150 mg = 1 tab(s), Oral, q24hr, # 30 tab(s), Refills(s) 5, Pharmacy: [facility], 165, cm, 05/27/24 8:56:00 EST, Height/Length Dosing, 119.7, kg, 05/27/24 8:56:00 EST, Weight Dosing cyanocobalamin 1000 mcg/mL Inj: 1,000 mcg = 1 mL, IntraMuscular, qMonth, Also dispense 3 ml syringes 25 gauge 1 needle, quantity sufficient for injections., # 10 mL, Refills(s) 1, Pharmacy: [facility]/pharmacy #[id number], 165, cm, 01/16/23 10:39:00 EDT, Height/Length Dosing, 118, kg, 01/16/23... cyclobenzaprine 10 mg Tab: 10 mg = 1 tab(s), Oral, TID, PRN for spasm, # 90 tab(s), Refills(s) 2, Pharmacy: [facility], 165, cm, 06/03/24 13:33:00 EST, Height/Length Dosing, 118.7, kg, 06/03/24 13:33:00 EST, Weight Dosing folic acid 1 mg Tab: 1 mg = 1 tab(s), Oral, Daily, # 90 tab(s), Refills(s) 3, Pharmacy: [facility], 165, cm, 04/04/24 10:00:00 EST, Height/Length Dosing, 116.6, kg, 04/04/24 10:00:00 EST, Weight Dosing gabapentin 600 mg Tab: 600 mg = 1 tab(s), Oral, BID, X 30 day(s), # 60 tab(s), Refills(s) 2, Pharmacy: [facility], 165, cm, 04/04/24 10:00:00 EST, Height/Length Dosing, 116.6, kg, 04/04/24 10:00:00 EST, Weight Dosing hydrochlorothiazide 25 mg Tab: 25 mg = 1 tab(s), Oral, qAM, # 90 tab(s), Refills(s) 4, Pharmacy: [facility], 165, cm, 06/03/24 13:33:00 EST, Height/Length Dosing, 118.7, kg, 06/03/24 13:33:00 EST, Weight Dosing ibuprofen 800 mg Tab: 800 mg = 1 tab(s), Oral, BID, PRN as needed for pain, # 60 tab(s), Refills(s)0, [id number], cm, 11/21/21 8:25:00 EDT, Height/Length Dosing, 122.5, kg, 11/21/21 8:25:00 EDT, Weight Dosing meclizine 12.5 mg Tab: 12.5 mg = 1 tab(s), Oral, TID, PRN for dizziness, # 30 tab(s), Refills(s) 3,[id number], 165, cm, 05/30/22 9:05:00 EST, Height/Length Dosing, 125, kg, 05/30/22 9:05:00 EST, Weight Dosing metformin 500 mg Tab: 500 mg = 1 tab(s), Oral, BID, # 90 tab(s), Refills(s) 4, [id number], 165, cm, 11/09/23 16:50:00 EDT, Height/Length Dosing, 116.7, kg, 11/09/23 16:50:00 EDT, Weight Dos (more content not included)...[facility] Center[facility] on [facility]:Result Comment: Electronically Signed By: Alyssa Young PA-C\.br\Date and Time Signed: 07/05/24 09:06 [id number] Evaluation + Plan noteExtracted from: Title:Pain Managment Follow up Author:Alyssa Gandhi Date:06/06/24 Impression and Plan Patient is a 48-year-old female with a past medical history significant for cervical dystonia, migraine headaches, right hip pain, lumbar neuritis and fibromyalgia In regards to her cervical dystonia and muscular discomfort we discussed cervical paraspinal trigger point injections. She we will get authorization for this. Once authorization has been obtained she will follow-up for this to be done in the office. It should be noted that she has trialed and failed a multitude of ttlb-jqx-sgvgoim medications including anti-inflammatory medications. She is gabapentin with some relief but not enough. In regards to her hip pain I recommended a right hip x-ray. This we done for possible injection options versus surgical consultation depend on the results In regards to her lumbar neuritis and fibromyalgia we discussed the injection but at this time, Dr. Gandara is not covered with her insurance. We will plan to have her increase her gabapentin. She is going to take 300 mg in the morning and 1200 mg at night. OARRS reviewed. Does not require refill. She will call if she does. CARLTON score: 30%. She will follow-up for the injections once authorization has been obtained. Future Appointments Appointment Date:07/04/2024 09:40:00 AM Scheduled Provider:Daja Ho [facility] Type:ONC Office Visit 20 (FT) Appointment Date:07/08/2024 09:20:00 AM Scheduled Provider:Serafin Roberson DO Location:[facility] Appointment Type: Open Future Scheduled Tests Laboratory* CBC w/ Auto Diff 07/05/24 * Comprehensive Metabolic Panel 07/05/24 * Ferritin 07/05/24 * Folate Level 07/05/24 * Iron Level 07/05/24 * Iron Percent Saturation 07/05/24 * Transferrin 07/05/24 * Vitamin B12 Level 07/05/[address] [facility] 01-13-2025 NoteConsultation Note Patient: KAYLA MONTANA Age: 48 years Sex: Female : 1975 Associated Diagnoses: None Author: Alyssa Young PA-C Subjective Chief complaint 06/06/2024 8:50 EST Generalized Pain . Patient is a 48-year-old female following up today after a significant hiatus. There was some issues with her insurance and then Dr. Gandara was no longer covered. She is here today to once again discuss options for her discomforts and pains. She has neck pain with bilateral shoulder pain, cervical paraspinal muscular pain, lower back pain, right greater than left-sided radicular symptoms and rightsided hip pain. She also has headaches that she feels down from her neck. She states that her neck muscles just getvery tight and tense and then the headaches start. She has taken Tylenol, Excedrin, Advil, naproxen, and other zdkg-lip-isrjfaq medications that any relief. She is not able to use Lyrica due to side effects. She is gabapentin. 1200 mg at bedtime. This gives her some relief but not enough. She currently rates her discomfort a 3/10 but states that they can get up to a 6/10 depending on her activities and what she is trying to do. She was previously supposed to undergo cervical paraspinal trigger point injections but this was not covered at the time because of issues with her insurance. She was post have a right hip x-ray which she did not. She was post have a transforaminal epidural steroid injection which she did not because of insurance issues as well. Health Status Allergies: Allergic Reactions (Selected) Severity Not Documented Lyrica- Unknown. Sulfa drugs- Angioedema., Allergies (2) Active Severity Reaction sulfa drugs angioedema Lyrica unknown Current medications: (Selected) Inpatient Medications Ordered Zero Hour: Day of Tx Prescriptions Prescribed Albuterol (Eqv-ProAir HFA) 90 mcg/inh inhalation aerosol: 2 puff(s), Inhalation, q6hr, 18 gm, Refill(s) 0, [facility]/pharmacy #[id number], 165, cm, 11/09/23 16:50:00 EDT, Height/Length Dosing, 116.7, kg, 11/09/23 16:50:00 EDT, Weight Dosing Ciprodex 0.3%-0.1% Susp-Otic: 4 drop(s), Otic, BID for 7 day(s), 7.5 mL, Refill(s) 1, [facility] #[facility], 165, cm, 06/03/24 13:33:00 EST, Height/Length Dosing, 118.7, kg, 06/03/24 13:33:00 EST, Weight Dosing FLUoxetine 20 mg Cap: 20 mg = 1 cap(s), Oral, Daily, # 30 cap(s), Refills(s) 0, other reason (Rx) Flonase 0.05 mg/inh [place]: 2 spray(s), Nasal, Daily, 16 gram, Refill(s) 5, each nostril, [facility]/pharmacy #[id number], 165, cm, 05/30/22 9:05:00 EST, Height/Length Dosing, 125, kg, 05/30/22 9:05:00 EST, WeightDosing Protonix 40 mg Tab-DR: 40 mg, Oral, Daily, # 90 tab(s), Refills(s) 1, [id number], cm, 05/04/23 10:42:00 EST, Height/Length Dosing, 122, kg, 05/04/23 10:42:00 EST, Weight Dosing Singulair 10 mg Tab: 10 mg = 1 tab(s), Oral, qPM, # 90 tab(s), Refills(s) 4, Pharmacy: [facility], 165, cm, 06/03/24 13:33:00 EST, Height/Length Dosing, 118.7, kg, 06/03/24 13:33:00 EST, Weight Dosing buPROPion 150 mg/24 hours XL Tab: 150 mg = 1 tab(s), Oral, q24hr, # 30 tab(s), Refills(s) 5, Pharmacy: [facility], 165, cm, 05/27/24 8:56:00 EST, Height/Length Dosing, 119.7, kg, 05/27/24 8:56:00 EST, Weight Dosing cyanocobalamin 1000 mcg/mL Inj: 1,000 mcg = 1 mL, IntraMuscular, qMonth, Also dispense 3 ml syringes 25 gauge 1 needle, quantity sufficient for injections., # 10 mL, Refills(s) 1, Pharmacy: [facility]/pharmacy #[id number], 165, cm, 01/16/23 10:39:00 EDT, Height/Length Dosing, 118, kg, 01/16/23... cyclobenzaprine 10 mg Tab: 10 mg = 1 tab(s), Oral, TID, PRN for spasm, # 90 tab(s), Refills(s) 2, Pharmacy: [facility], 165, cm, 06/03/24 13:33:00 EST, Height/Length Dosing, 118.7, kg, 06/03/24 13:33:00 EST, Weight Dosing folic acid 1 mg Tab: 1 mg = 1 tab(s), Oral, Daily, # 90 tab(s), Refills(s) 3, Pharmacy: [facility], 165, cm, 04/04/24 10:00:00 EST, Height/Length Dosing, 116.6, kg, 04/04/24 10:00:00 EST, Weight Dosing gabapentin 600 mg Tab: 600 mg = 1 tab(s), Oral, BID, X 30 day(s), # 60 tab(s), Refills(s) 2, Pharmacy: [facility], 165, cm, 04/04/24 10:00:00 EST, Height/Length Dosing, 116.6, kg, 04/04/24 10:00:00 EST, Weight Dosing hydrochlorothiazide 25 mg Tab: 25 mg = 1 tab(s), Oral, qAM, # 90 tab(s), Refills(s) 4, Pharmacy: [facility], 165, cm, 06/03/24 13:33:00 EST, Height/Length Dosing, 118.7, kg, 06/03/24 13:33:00 EST, Weight Dosing ibuprofen 800 mg Tab: 800 mg = 1 tab(s), Oral, BID, PRN as needed for pain, # 60 tab(s), Refills(s)0, Pharmacy: [facility]/pharmacy #[id number], 165, cm, 11/21/21 8:25:00 EDT, Height/Length Dosing, 122.5, kg, 11/21/21 8:25:00 EDT, Weight Dosing meclizine 12.5 mg Tab: 12.5 mg = 1 tab(s), Oral, TID, PRN for dizziness, # 30 tab(s), Refills(s) 3,Pharmacy: [facility]/pharmacy #[id number], 165, cm, 05/30/22 9:05:00 EST, Height/Length Dosing, 125, kg, 05/30/22 9:05:00 EST, Weight Dosing metformin 500 mg Tab: 500 mg = 1 (more content not included)...[facility] CenterComment on above:Result Comment: Electronically Signed By: Hector LOMBARDO, Alyssa\.br\Date and Time Signed: 06/06/24 09:21 [id number] NoteOncology Progress Note Chief Complaint Anemia; here to go over results. Diagnoses 1. Vitamin B 12 deficiency, (E53.8: Deficiency of other specified B group vitamins)Folate deficiency Ordered: cyanocobalamin, 1,000 mcg = 1 mL, Injection, IntraMuscular, Day of Tx, Stop date 04/04/24 10:52:00 EST, Routine, Start date 04/04/24 10:52:00 EST Zero Hour, Day of Tx Adult Chemotherapy Hypersensitivity Management CBC w/ Auto Diff Comprehensive Metabolic Panel Ferritin Folate Level Iron Level Iron Percent Saturation ONC Office Visit 20 Min Transferrin Vitamin B12 Level 2. Iron deficiency anemia (D50.9: Iron deficiency anemia, unspecified) Ordered: CBC w/ Auto Diff Comprehensive Metabolic Panel Ferritin Folate Level Iron Level Iron Percent Saturation ONC Office Visit 20 Min Transferrin Vitamin B12 Level Oncological History/ROS/PE/Assessment and Plan 44-year-old female, primary patient of Dr. Eckert. Past medical history includes obstructive sleep apnea, elevated BMI, PCOS, gastroesophageal reflux disease, chronic smoker, heart palpitations, hypertension, depression, Outpatient medications include cetirizine, Claritin, Cymbalta, Flonase, gabapentin, lisinopril, meclizine, Metformin, olanzapine, Prozac, Protonix, rosuvastatin, Skelaxin, Topamax, vitamin B12 1000 mg p.o. daily. Reviewed CBC from July 12, 2020 which shows normal white blood cell count, hemoglobin of 9.5 with an MCV of 65.2. Platelet count of 341,000. She did have a reticulocyte count of only 1.2%. Creatinine of 0.8 with normal liver function studies, normal total protein and albumin. Iron was low at 29with an elevated iron binding capacity. TSH was normal at 1.7. Vitamin B12 and folate were well within normal limits. A ferritin was tested and was 4. Hemoglobin electrophoresis was normal. quit smoking 05/2020. She had an EGD and colonoscopy in September 2019. She follows with Dr. Weir. She was found to have a Schatzki's ring and esophagitis. She also had small gastric polyps He has recently seen Dr. Larios of cardiology and had normal 24-hour Holter monitor and has ordereda treadmill stress echo. She was being worked up for palpitations and chest pain. She does have heavy periods. She is recently seen her primary care provider and noted a lump in hergroin area radiating down her leg. She has begun oral iron supplementation recently. MRI of the lumbar spine from July 25, 2020 showed multilevel degenerative changes with postsurgical changes at L4-L5. No pica symptoms. 08/09/20 has irregular periods from PCOS maybe she only has 4 or 5 periods a year. She has very heavy for a few days then light for a few days then stop. Until a few years ago she had more frequent extremely heavy periods. no black or bloody stools. repeat EGD in jun 2020. 11/22/20 she is doing ok. energy still low. QUIT SMOKING IN MAY. Her is losing weight and she would like to as well. She still has heavy periods for about two days, changing tampons hourly sometimes. No black or dark stools. 04/30/21 continues with heavy periods. no black or bloody stool. feels well. 04/30/22 She had injectafer last in november 2020. she feels ok overall. Tired recently. not much appetitie. 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 She goes through ultra tampons in less than an hour and wears 4 padsto bed for about 3 days and then less for 3 more days then stops. 11/13/22 had 2 episodes where she had bruises that weren't from any trauma that she can recall one under her arm pit, after massaging the area, that was large and red/purple. went away after 1-1.5 weeks another time she was in the tub and resting her arm on the tub. When she got out her arm was all red where she had rested it on the tub neither of these have returned after repeat massage and sitting in the tub. No other new bruises orconcerns she feels ok otherwise work-up was negative including coags, esr, crp, pepe, von willebrand and factor 5 leiden 05/04/23 the day after her last iron infusion, she started her period and it lasted 3 weeks. She had a D&C in the middle of March and has not had bleeding since has no energy has not had any major bruises since last visit denies shortness of breath or chest pain eating and drinking ok, she has dry mouth so drinks a ton of water. Doesn't have much of an appetite currently. Has had intermittent diarrhea the last few weeks, still with frequent nausea labs with low iron saturation, ferritin dropped from last visit and likely partially elevated from other acute inflammation. hgb still WNL but lower than previous result 04/04/24 energy has not been good, has a lot of stress at home and anxiety denies shortness of breath. Still can get chest pains infrequently, also seem stress related gets a fairly constant pain in her left flank/left quadrant for the last week. This previously (more content not included)...[facility] 03-[facility] Hospital Discharge instructions Follow Up Care 03/18/2024 13:22:21 With:Sanam MCMAHON, Daja Harman, ONC Address: [facility] [address] [place] [address] [place] [address] [phone] When: Unknown Comments:re-start B12 injections monthly- 1st one here, then she will do at homerefill folic acid 1mg dailycbc, cmp, iron studies, b12, folate in 3mofollow- up in 3mo [facility] 06-17-2024 Hospital Discharge instructions Patient Education 11/09/2023 17:12:29 Sinus Infection, Adult Sinus Infection, Adult A sinus infection, also called sinusitis, is inflammation of your sinuses. Sinuses are hollow spaces in the bones around your face. Your sinuses are located: Around your eyes. In the middle of your forehead. Behind your nose. In your cheekbones. Mucus normally drains out of your sinuses. When your nasal tissues become inflamed or swollen, mucus can become trapped or blocked. This allows bacteria, viruses, and fungi to grow, which leads to infection. Most infections of the sinuses are caused by a virus. A sinus infection can develop quickly. It can last for up to 4 weeks (acute) or for more than 12 weeks (chronic). A sinus infection often develops after a cold. What are the causes? This condition is caused by anything that creates swelling in the sinuses or stops mucus from draining. This includes: Allergies. Asthma. Infection from bacteria or viruses. Deformities or blockages in your nose or sinuses. Abnormal growths in the nose (nasal polyps). Pollutants, such as chemicals or irritants in the air. Infection from fungi. This is rare. What increases the risk? You are more likely to develop this condition if you: Have a weak body defense system (immune system). Do a lot of swimming or diving. Overuse nasal sprays. Smoke. What are the signs or symptoms? The main symptoms of this condition are pain and a feeling of pressure around the affected sinuses.Other symptoms include: Stuffy nose or congestion that makes it difficult to breathe through your nose. Thick yellow or greenish drainage from your nose. Tenderness, swelling, and warmth over the affected sinuses. A cough that may get worse at night. Decreased sense of smell and taste. Extra mucus that collects in the throat or the back of the nose (postnasal drip) causing a sore throat or bad breath. Tiredness (fatigue). Fever. How is this diagnosed? This condition is diagnosed based on: Your symptoms. Your medical history. A physical exam. Tests to find out if your condition is acute or chronic. This may include: ?Checking your nose for nasal polyps. ?Viewing your sinuses using a device that has a light (endoscope). ?Testing for allergies or bacteria. ?Imaging tests, such as an MRI or CT scan. In rare cases, a bone biopsy may be done to rule out more serious types of fungal sinus disease. How is this treated? Treatment for a sinus infection depends on the cause and whether your condition is chronic or acute. If caused by a virus, your symptoms should go away on their own within 10 days. You may be given medicines to relieve symptoms. They include: ?Medicines that shrink swollen nasal passages (decongestants). ?A spray that eases inflammation of the nostrils (topical intranasal corticosteroids). ?Rinses that help get rid of thick mucus in your nose (nasal saline washes). ?Medicines that treat allergies (antihistamines). ?Mhqk-pqw-xjnjdmj pain relievers. If caused by bacteria, your health care provider may recommend waiting to see if your symptoms improve. Most bacterial infections will get better without antibiotic medicine. You may be given antibiotics if you have: ?A severe infection. ?A weak immune system. If caused by narrow nasal passages or nasal polyps, surgery may be needed. Follow these instructions at home: Medicines Take, use, or apply gqse-isq-ininhhf and prescription medicines only as told by your health care provider. These may include nasal sprays. If you were prescribed an antibiotic medicine, take it as told by your health care provider. Do notstop taking the antibiotic even if you start to feel better. Hydrate and humidify Drink enough fluid to keep your urine pale yellow. Staying hydrated will help to thin your mucus. Use a cool mist humidifier to keep the humidity level in your home above 50%. Inhale steam for 10 15 minutes, 3 4 times a day, or as told by your health care provider. You can do this in the bathroom while a hot shower is running. Limit your exposure to cool or dry air. Rest Rest as much as possible. Sleep with your head raised (elevated). Make sure you get enough sleep each night. General instructions Apply a warm, moist washcloth to your face 3 4 times a day or as told by your health care provider.This will help with discomfort. Use nasal saline washes as often as told by your health care provider. Wash your hands often with soap and water to reduce your exposure to germs. If soap and water are not available, use hand trouble locater. Do not smoke. Avoid being around people who are smoking (secondhand smoke). Keep all follow-up visits. This is important. Contact a health care provider if: You have a fever. Your symptoms get worse. Your symptoms do not improve within 10 days. Get help right away if: You have a severe headache. You have persistent vomiting. You have severe pain or swelling around your face or eyes. You have vision problems. You develop confusion. Your neck is stiff. You have trouble breathing. These symptoms may be an emergency. Get help right away. Call 911. Do not wait to see if the symptoms will go away. Do not drive yourself to the hospital. Summary A sinus infection is soreness and inflammation of your sinuses. Sinuses are hollow spaces in the bones around your face. This condition is caused by nasal tissues that become inflamed or swollen. The swelling traps or blocks the flow of mucus. This allows bacteria, viruses, and fungi to grow, which leads to infection. If you were prescribed an antibiotic medicine, take it as told by your health care provider. Do notstop taking the antibiotic even if you start to feel better. Keep all follow-up visits. This is important. This information is not intended to replace advice given to you by your health care provider. Make sure you discuss any questions you have with your health care provider. Document Revised: 04/15/2022 Document Reviewed: 04/15/2022 [employer] Patient Education 2022 [employer]. 11/09/2023 17:12:28 How to Perform a Sinus Rinse How to Perform a Sinus Rinse A sinus rinse is a home treatment that is used to rinse your sinuses with a germ-free (sterile) mixture of salt and water (saline solution). Sinuses are air-filled spaces in your skull that are behind the bones of your face and forehead. They open into your nasal cavity. A sinus rinse can help to clear mucus, dirt, dust, or pollen from your nasal cavity. You may do a sinus rinse when you have a cold, a virus, nasal allergy symptoms, a sinus infection, or stuffiness in your nose or sinuses. What are the risks? A sinus rinse is generally safe and effective. However, there are a few risks, which include: A burning sensation in your sinuses. This may happen if you do not make the saline solution as directed. Be sure to follow all directions when making the saline solution. Nasal irritation. Infection. This may be from unclean supplies or from contaminated water. Infection from contaminated water is rare, but possible. Do not do a sinus rinse if you have had ear or nasal surgery, ear infection, or plugged ears, unless recommended by your health care provider. Supplies needed: Saline solution or powder. Distilled or sterile water to mix with saline powder. ?You may use boiled and cooled tap water. Boil tap water for 5 minutes; cool until it is lukewarm. Use within 24 hours. ?Do not use regular tap water to mix with the saline solution. Neti pot or nasal rinse bottle. These supplies release the saline solution into your nose and through your sinuses. Neti pots and nasal rinse bottles can be purchased at your local pharmacy, a [employer] store, or online. How to perform a sinus rinse 1.Wash your hands with soap and water for at least 20 seconds. If soap and water are not available,use hand trouble locater. 2.Wash your device according to the directions that came with the product and then dry it. 3.Use the solution that comes with your product or one that is sold separately in stores. Follow the mixing directions on the package to mix with sterile or distilled water. 4.Fill the device with the amount of saline solution noted in the device instructions. 5.Stand by a sink and tilt your head sideways over the sink. 6.Place the spout of the device in your upper nostril (the one closer to the ceiling). 7.Gently pour or squeeze the saline solution into your nasal cavity. The liquid should drain out from the lower nostril if you are not too congested. 8.While rinsing, breathe through your open mouth. 9.Gently blow your nose to clear any mucus and rinse solution. Blowing too hard may cause ear pain. 10.Turn your head in the other direction and repeat in your other nostril. 11.Clean and rinse your device with clean water and then air-dry it. Talk with your health care provider or pharmacist if you have questions about how to do a sinus rinse. Summary A sinus rinse is a home treatment that is used to rinse your sinuses with a sterile mixture of saltand water (saline solution). You may do a sinus rinse when you have a cold, a virus, nasal allergy symptoms, a sinus infection, or stuffiness in your nose or sinuses. A sinus rinse is generally safe and effective. Follow all instructions carefully. This information is not intended to replace advice given to you by your health care provider. Make sure you discuss any questions you have with your health care provider. Document Revised: 10/28/2021 Document Reviewed: 10/28/2021 [employer] Patient Education 2022 [employer]. 11/09/2023 17:12:26 Upper Respiratory Infection, Adult, Iepx-nv-Svvi Upper Respiratory Infection, Adult An upper respiratory infection (URI) affects the nose, throat, and upper airways that lead to the lungs. The most common type of URI is often called the common cold. URIs usually get better on their own, without medical treatment. What are the causes? A URI is caused by a germ (virus). You may catch these germs by: Breathing in droplets from an infected person's cough or sneeze. Touching something that has the germ on it (is contaminated) and then touching your mouth, nose, oreyes. What increases the risk? You are more likely to get a URI if: You are very young or very old. You have close contact with others, such as at work, school, or a health care facility. You smoke. You have long-term (chronic) heart or lung disease. You have a weakened disease-fighting system (immune system). You have nasal allergies or asthma. You have a lot of stress. You have poor nutrition. What are the signs or symptoms? Runny or stuffy (congested) nose. Cough. Sneezing. Sore throat. Headache. Feeling tired (fatigue). Fever. Not wanting to eat as much as usual. Pain in your forehead, behind your eyes, and over your cheekbones (sinus pain). Muscle aches. Redness or irritation of the eyes. Pressure in the ears or face. How is this treated? URIs usually get better on their own within 7 10 days. Medicines cannot cure URIs, but your doctor may recommend certain medicines to help relieve symptoms, such as: Htsz-riv-blglpqw cold medicines. Medicines to reduce coughing (cough suppressants). Coughing is a type of defense against infection that helps to clear the nose, throat, windpipe, and lungs (respiratory system). Take these medicinesonly as told by your doctor. Medicines to lower your fever. Follow these instructions at home: Activity Rest as needed. If you have a fever, stay home from work or school until your fever is gone, or until your doctor says you may return to work or school. ?You should stay home until you cannot spread the infection anymore (you are not contagious). ?Your doctor may have you wear a face mask so you have less risk of spreading the infection. Relieving symptoms Rinse your mouth often with salt water. To make salt water, dissolve 1 tsp (3 6 g) of salt in 1 cup(237 mL) of warm water. Use a cool-mist humidifier to add moisture to the air. This can help you breathe more easily. Eating and drinking Drink enough fluid to keep your pee (urine) pale yellow. Eat soups and other clear broths. General instructions Take vlnu-uuh-bziuiif and prescription medicines only as told by your doctor. Do not smoke or use any products that contain nicotine or tobacco. If you need help quitting, ask your doctor. Avoid being where people are smoking (avoid secondhand smoke). Stay up to date on all your shots (immunizations), and get the flu shot every year. Keep all follow-up visits. How to prevent the spread of infection to others Wash your hands with soap and water for at least 20 seconds. If you cannot use soap and water, use hand trouble locater. Avoid touching your mouth, face, eyes, or nose. Cough or sneeze into a tissue or your sleeve or elbow. Do not cough or sneeze into your hand or into the air. Contact a doctor if: You are getting worse, not better. You have any of these: ?A fever or chills. ?Brown or red mucus in your nose. ?Yellow or brown fluid (discharge)coming from your nose. ?Pain in your face, especially when you bend forward. ?Swollen neck glands. ?Pain when you swallow. ?White areas in the back of your throat. Get help right away if: You have shortness of breath that gets worse. You have very bad or constant: ?Headache. ?Ear pain. ?Pain in your forehead, behind your eyes, and over your cheekbones (sinus pain). ?Chest pain. You have long-lasting (chronic) lung disease along with any of these: ?Making high-pitched whistling sounds when you breathe, most often when you breathe out (wheezing). ?Long-lasting cough (more than 14 days). ?Coughing up blood. ?A change in your usual mucus. You have a stiff neck. You have changes in your: ?Vision. ?Hearing. ?Thinking. ?Mood. These symptoms may be an emergency. Get help right away. Call 911. Do not wait to see if the symptoms will go away. Do not drive yourself to the hospital. Summary An upper respiratory infection (URI) is caused by a germ (virus). The most common type of URI is often called the common cold. URIs usually get better within 7 10 days. Take hafr-fbt-cyrgxfv and prescription medicines only as told by your doctor. This information is not intended to replace advice given to you by your health care provider. Make sure you discuss any questions you have with your health care provider. Document Revised: 12/11/2021 Document Reviewed: 12/11/2021 [employer] Patient Education 2022 [employer]. 11/09/2023 12:28:26 Cough, Adult Cough, Adult Coughing is a reflex that clears your throat and your airways (respiratory system). Coughing helps to heal and protect your lungs. It is normal to cough occasionally, but a cough that happens with other symptoms or lasts a long time may be a sign of a condition that needs treatment. An acute cough may only last 2 3 weeks, while a chronic cough may last 8 or more weeks. Coughing is commonly caused by: Infection of the respiratory systemby viruses or bacteria. Breathing in substances that irritate your lungs. Allergies. Asthma. Mucus that runs down the back of your throat (postnasal drip). Smoking. Acid backing up from the stomach into the esophagus (gastroesophageal reflux). Certain medicines. Chronic lung problems. Other medical conditions such as heart failure or a blood clot in the lung (pulmonary embolism). Follow these instructions at home: Medicines Take zojy-rmc-rangoml and prescription medicines only as told by your health care provider. Talk with your health care provider before you take a cough suppressant medicine. Lifestyle Avoid cigarette smoke. Do not use any products that contain nicotine or tobacco, such as cigarettes, e-cigarettes, and chewing tobacco. If you need help quitting, ask your health care provider. Drink enough fluid to keep your urine pale yellow. Avoid caffeine. Do not drink alcohol if your health care provider tells you not to drink. General instructions Pay close attention to changes in your cough. Tell your health care provider about them. Always cover your mouth when you cough. Avoid things that make you cough, such as perfume, candles, cleaning products, or campfire or tobacco smoke. If the air is dry, use a cool mist vaporizer or humidifier in your bedroom or your home to help loosen secretions. If your cough is worse at night, try to sleep in a semi-upright position. Rest as needed. Keep all follow-up visits as told by your health care provider. This is important. Contact a health care provider if you: Have new symptoms. Cough up pus. Have a cough that does not get better after 2 3 weeks or gets worse. Cannot control your cough with cough suppressant medicines and you are losing sleep. Have pain that gets worse or pain that is not helped with medicine. Have a fever. Have unexplained weight loss. Have night sweats. Get help right away if: You cough up blood. You have difficulty breathing. Your heartbeat is very fast. These symptoms may represent a serious problem that is an emergency. Do not wait to see if the symptoms will go away. Get medical help right away. Call your local emergency services (911 in the [place] Do not drive yourself to the hospital. Summary Coughing is a reflex that clears your throat and your airways. It is normal to cough occasionally, but a cough that happens with other symptoms or lasts a long time may be a sign of a condition that needs treatment. Take udwf-gzw-reqyopq and prescription medicines only as told by your health care provider. Always cover your mouth when you cough. Contact a health care provider if you have new symptoms or a cough that does not get better after 23 weeks or gets worse. This information is not intended to replace advice given to you by your health care provider. Make sure you discuss any questions you have with your health care provider. Document Revised: 05/30/2019 Document Reviewed: 05/30/2019 [employer] Patient Education 2022 [employer]. 11/09/2023 12:28:25 Upper Respiratory Infection, Adult, Qkkz-dg-Mgei Upper Respiratory Infection, Adult An upper respiratory infection (URI) affects the nose, throat, and upper airways that lead to the lungs. The most common type of URI is often called the common cold. URIs usually get better on their own, without medical treatment. What are the causes? A URI is caused by a germ (virus). You may catch these germs by: Breathing in droplets from an infected person's cough or sneeze. Touching something that has the germ on it (is contaminated) and then touching your mouth, nose, oreyes. What increases the risk? You are more likely to get a URI if: You are very young or very old. You have close contact with others, such as at work, school, or a health care facility. You smoke. You have long-term (chronic) heart or lung disease. You have a weakened disease-fighting system (immune system). You have nasal allergies or asthma. You have a lot of stress. You have poor nutrition. What are the signs or symptoms? Runny or stuffy (congested) nose. Cough. Sneezing. Sore throat. Headache. Feeling tired (fatigue). Fever. Not wanting to eat as much as usual. Pain in your forehead, behind your eyes, and over your cheekbones (sinus pain). Muscle aches. Redness or irritation of the eyes. Pressure in the ears or face. How is this treated? URIs usually get better on their own within 7 10 days. Medicines cannot cure URIs, but your doctor may recommend certain medicines to help relieve symptoms, such as: Thgw-lbx-ctdsujg cold medicines. Medicines to reduce coughing (cough suppressants). Coughing is a type of defense against infection that helps to clear the nose, throat, windpipe, and lungs (respiratory system). Take these medicinesonly as told by your doctor. Medicines to lower your fever. Follow these instructions at home: Activity Rest as needed. If you have a fever, stay home from work or school until your fever is gone, or until your doctor says you may return to work or school. ?You should stay home until you cannot spread the infection anymore (you are not contagious). ?Your doctor may have you wear a face mask so you have less risk of spreading the infection. Relieving symptoms Rinse your mouth often with salt water. To make salt water, dissolve 1 tsp (3 6 g) of salt in 1 cup(237 mL) of warm water. Use a cool-mist humidifier to add moisture to the air. This can help you breathe more easily. Eating and drinking Drink enough fluid to keep your pee (urine) pale yellow. Eat soups and other clear broths. General instructions Take vhzd-tli-erhvdcz and prescription medicines only as told by your doctor. Do not smoke or use any products that contain nicotine or tobacco. If you need help quitting, ask your doctor. Avoid being where people are smoking (avoid secondhand smoke). Stay up to date on all your shots (immunizations), and get the flu shot every year. Keep all follow-up visits. How to prevent the spread of infection to others Wash your hands with soap and water for at least 20 seconds. If you cannot use soap and water, use hand trouble locater. Avoid touching your mouth, face, eyes, or nose. Cough or sneeze into a tissue or your sleeve or elbow. Do not cough or sneeze into your hand or into the air. Contact a doctor if: You are getting worse, not better. You have any of these: ?A fever or chills. ?Brown or red mucus in your nose. ?Yellow or brown fluid (discharge)coming from your nose. ?Pain in your face, especially when you bend forward. ?Swollen neck glands. ?Pain when you swallow. ?White areas in the back of your throat. Get help right away if: You have shortness of breath that gets worse. You have very bad or constant: ?Headache. ?Ear pain. ?Pain in your forehead, behind your eyes, and over your cheekbones (sinus pain). ?Chest pain. You have long-lasting (chronic) lung disease along with any of these: ?Making high-pitched whistling sounds when you breathe, most often when you breathe out (wheezing). ?Long-lasting cough (more than 14 days). ?Coughing up blood. ?A change in your usual mucus. You have a stiff neck. You have changes in your: ?Vision. ?Hearing. ?Thinking. ?Mood. These symptoms may be an emergency. Get help right away. Call 911. Do not wait to see if the symptoms will go away. Do not drive yourself to the hospital. Summary An upper respiratory infection (URI) is caused by a germ (virus). The most common type of URI is often called the common cold. URIs usually get better within 7 10 days. Take nwus-asp-rswzsvi and prescription medicines only as told by your doctor. This information is not intended to replace advice given to you by your health care provider. Make sure you discuss any questions you have with your health care provider. Document Revised: 12/11/2021 Document Reviewed: 12/11/2021 [employer] Patient Education 2022 [employer]. Follow Up Care 11/09/2023 11:21:28 With:Stefania Snowden Address: [address] [place] [address], [place] [address]- When: only if needed [facility] 05-22-2024 Evaluation + Plan noteExtracted from: Title:chronic pain Author:Rupesh Gandara DO Date:10/14/23 Patient is presenting with w ith multiple areas of pain. She has a past medical history of lumbosacral radiculopathy, cervical radiculopathy, cervical dystonia, right hip and groin pain, postlaminectomy pain syndrome, and fibromyalgia. She also has chronic intractable migraines that have been going on for several years and typically last for over 1 day when occurring and this happens 3-5 times per week when they are exacerbated this happens at least 5 times per week, present for years. She has had Botox for these in the past that was very effective and she would like to consider revisiting this. Her most concerning areas of pain right now are in her back and right leg radiating down the leg laterally as well as pain in the groin. She rates this pain as a 2/10 but can be an 8-10/10 particular when exacerbated. This is worse with any standing walking as well as transitioning from seated to standing position. She has morning stiffness and this is exacerbated throughout the day as well. We discussed that this is likely coming from an L4 and L5 nerve root as it follows an L4 and L5 dermatomal distribution. Her groin pain may be secondary to the hip joint and we discussed further evaluating this with x-rays. We did review her lumbar MRI again with her. She has responded well to a right L5/S1 transforaminal epidural steroid injection in the past. We did discuss that transforaminal epidural steroid injection would be appropriate for treating her radicular symptoms at this time as well. She is also taking gabapentin and Flexeril with good relief. Given her multiple areas of pain we discussed addressing each 1 of these. Lumbosacral radiculopathy: As above Chronic intractable migraines and cervical dystonia: Discussed possibility of Botox, cervical dystonia we discussed trigger points may be appropriate at the next visit Right hip and groin pain: Worse in the morning, worse with activities such as standing walking and is localized to the groin and medial thigh, can be a 2 to a 7/10 in severity, will order x-rays to evaluate hip pathology. CARLTON Score: 30% PHQ-2: 4 Patient denies any symptoms of progressively worsening upper/lower extremity weakness, progressively worsening gait abnormality, new onset bowel/bladder incontinence/ urinary retention, or saddle anesthesia. No new or worsening symptoms of fever, chills, night sweats. 14 Point Review of systems negative unless otherwise noted. General: No acute distress. Patient appears well-nourished. HEENT: Head is normocephalic and external ears are normal in appearance. Cardiovascular: No signs of poor perfusion and no peripheral edema Pulmonary: Nonlabored breathing, symmetric chest movement. GI: Abdomen nondistended Integumentary: No lesions Neurologic: Alert, oriented x3. 5/5 strength grossly in the bilateral upper extremities. Sensation intact to light touch in the bilateral upper extremities. 5/5 strength grossly in the bilateral lower extremities. Sensation intact to light touch in the bilateral lower extremities. MSK/Special Testing: Negative Karen sign bilaterally, seated straight leg raise test did reproduce radicular symptoms on the right only, JOSE reproduced groin pain on the right. Multiple tender spots throughout body. History, physical examination, and personal review of pertinent imaging results indicate a diagnosis of: -Lumbosacral radiculopathy, acutely exacerbated -Cervical radiculopathy, not currently flared -Chronic intractable migraines and cervical dystonia -Fibromyalgia -Right hip pain Plan: -her low back and radicular symptoms are the worst we discussed scheduling her for right-sided L4/5 and L5/1 transforaminal epidural steroid injection under fluoroscopic guidance -She has right hip and groin pain as well that I believe is coming from her hip joint and we discussed performing a right hip x-ray to better understand what is going on -At her follow-up in 1 month postinjection we discussed that if she still has cervical dystonia and pain from this we can consider trigger point injections in her cervical paraspinal muscle region, she also has a history of migraines and would like to discuss Botox that she has chronic intractable migraines that last several days when occurring and occur 5 times per week when occurring. Patient was counseled on the above diagnosis and treatment, all questions were answered and patient agrees to adhere to the plan above. Risk and benefits of appropriate procedures and medications were reviewed as well with patient, who voiced understanding and agreeance. Patient was counseled on appropriate use of opioids if prescribed or renewed today and naloxone was offered to patient if opioids were prescribed or maintained at this visit. PHQ-2 scoring reviewed with patient and discussed seeking treatment for depression or mood disorder as appropriate. Patient was counseled on smoking cessation and/or continuing to abstain from nicotine/tobacco products as appropriate based on history; as smoking/nicotine can contribute to increased pain overall and decreased wound healing. Patient counseled on maintaining a healthy BMI as part of the total treatment of their pain and to reduce stress/strain on joints. Patient invited to return or call with any questions or concerns that arise. IMPRESSION: Multilevel degenerative changes lumbar spine with postsurgical changes at L4-L5, with appearance overall similar to 10/01/2018. EXAMINATION: MRI Spine Lumbar w/ + w/o Contrast HISTORY: Chronic low back pain and right-sided leg pain with numbness and tingling. Prior surgery in 2001. TECHNIQUE: Routine lumbosacral spine MR protocol without and with intravenous gadolinium. Contrast: 20 mL of intravenous MultiHance. COMPARISON: MRI 10/01/2018 RESULT: Counting reference: Lumbosacral junction. For the purposes of this report, L5-S1 is considered the last well-formed disc space. Alignment: Alignment is anatomic. Bone marrow signal/fracture: No evidence of pathologic marrow infiltration. No evidence of prior fracture. Type II endplate degenerative signal at L3-L4. Conus: The conus is within normal limits of signal intensity and morphology. Paraspinal soft tissues: Nabothian cysts within the cervix. Right adnexal T2 hyperintense small cyst/follicle. No paraspinal fluid collection. No abnormal enhancement after contrast. Lower thoracic spine: Visualized lower thoracic canal and foramina are without significant narrowing. T12-L1: No significant canal or foraminal narrowing. L1-L2: No significant canal or foraminal narrowing. L2-L3: Disc desiccation. Broad-based disc bulge. Ligamentous hypertrophy. Facet degenerative changes. Mild canal narrowing without significant foraminal narrowing. Changes similar to prior. L3-L4: Disc desiccation. Broad-based disc bulge with possible tiny protrusion in the right subarticular zone, similar to prior. Mild disc height loss. Facet degenerative changes. Ligamentous hypertrophy. Mild canal narrowing without canal or foraminal narrowing. Changes similar to prior. L4-L5: Postsurgical changes with interbody material in the disc space. Facet degenerative changes. Susceptibility artifact from the hardware. Canal is decompressed. Mild bilateral foraminal narrowing. Changes similar to prior. L5-S1: Broad-based disc bulge. Possible tiny superimposed central zone disc protrusion. Annular fissure. Facet degenerative changes. Ligament hypertrophy. Moderate bilateral foraminal narrowing without significant canal narrowing. Changes similar to prior. Sacrum and iliac wings: The visualized sacrum and iliac wings are within normal limits. The presacral soft tissues are normal in appearance. Future Scheduled Tests Laboratory* CBC w/ Auto Diff 08/03/23 * Comprehensive Metabolic Panel 08/03/23 * Ferritin 08/03/23 * Iron Level 08/03/23 * Iron Percent Saturation 08/03/23 * Transferrin 08/03/[address] [facility]04-09-2024 Hospital Discharge instructions Patient Education 09/01/2023 16:22:08 Rash, Adult, Fooa-og-Aclt Rash, Adult A rash is a change in the color of your skin. A rash can also change the way your skin feels. Thereare many different conditions and factors that can cause a rash. Follow these instructions at home: The goal of treatment is to stop the itching and keep the rash from spreading. Watch for any changes in your symptoms. Let your doctor know about them. Follow these instructions to help with your condition: Medicine Take or apply ggle-fqb-rbarsdo and prescription medicines only as told by your doctor. These may include medicines: To treat red or swollen skin (corticosteroid creams). To treat itching. To treat an allergy (oral antihistamines). To treat very bad symptoms (oral corticosteroids). Skin care Put cool cloths (compresses) on the affected areas. Do not scratch or rub your skin. Avoid covering the rash. Make sure that the rash is exposed to air as much as possible. Managing itching and discomfort Avoid hot showers or baths. These can make itching worse. A cold shower may help. Try taking a bath with: ?Epsom salts. You can get these at your local pharmacy or grocery store. Follow the instructions onthe package. ?Baking soda. Pour a small amount into the bath as told by your doctor. ?Colloidal oatmeal. You can get this at your local pharmacy or grocery store. Follow the instructions on the package. Try putting baking soda paste onto your skin. Stir water into baking soda until it gets like a paste. Try putting on a lotion that relieves itchiness (calamine lotion). Keep cool and out of the sun. Sweating and being hot can make itching worse. General instructions Rest as needed. Drink enough fluid to keep your pee (urine) pale yellow. Wear loose-fitting clothing. Avoid scented soaps, detergents, and perfumes. Use gentle soaps, detergents, perfumes, and other cosmetic products. Avoid anything that causes your rash. Keep a journal to help track what causes your rash. Write down: ?What you eat. ?What cosmetic products you use. ?What you drink. ?What you wear. This includes jewelry. Keep all follow-up visits as told by your doctor. This is important. Contact a doctor if: You sweat at night. You lose weight. You pee (urinate) more than normal. You pee less than normal, or you notice that your pee is a darker color than normal. You feel weak. You throw up (vomit). Your skin or the whites of your eyes look yellow (jaundice). Your skin: ?Tingles. ?Is numb. Your rash: ?Does not go away after a few days. ?Gets worse. You are: ?More thirsty than normal. ?More tired than normal. You have: ?New symptoms. ?Pain in your belly (abdomen). ?A fever. ?Watery poop (diarrhea). Get help right away if: You have a fever and your symptoms suddenly get worse. You start to feel mixed up (confused). You have a very bad headache or a stiff neck. You have very bad joint pains or stiffness. You have jerky movements that you cannot control (seizure). Your rash covers all or most of your body. The rash may or may not be painful. You have blisters that: ?Are on top of the rash. ?Grow larger. ?Grow together. ?Are painful. ?Are inside your nose or mouth. You have a rash that: ?Looks like purple pinprick-sized spots all over your body. ?Has a bull's eye or looks like a target. ?Is red and painful, causes your skin to peel, and is not from being in the sun too long. Summary A rash is a change in the color of your skin. A rash can also change the way your skin feels. The goal of treatment is to stop the itching and keep the rash from spreading. Take or apply ctvo-bxq-vqqljmf and prescription medicines only as told by your doctor. Contact a doctor if you have new symptoms or symptoms that get worse. Keep all follow-up visits as told by your doctor. This is important. This information is not intended to replace advice given to you by your health care provider. Make sure you discuss any questions you have with your health care provider. Document Revised: 02/20/2022 Document Reviewed: 02/20/2022 [employer] Patient Education 2022 [employer]. 09/01/2023 16:22:08 Rash, Adult, Rfqm-fd-Ydhu Rash, Adult A rash is a change in the color of your skin. A rash can also change the way your skin feels. Thereare many different conditions and factors that can cause a rash. Follow these instructions at home: The goal of treatment is to stop the itching and keep the rash from spreading. Watch for any changes in your symptoms. Let your doctor know about them. Follow these instructions to help with your condition: Medicine Take or apply oxtk-rkl-xdazhnj and prescription medicines only as told by your doctor. These may include medicines: To treat red or swollen skin (corticosteroid creams). To treat itching. To treat an allergy (oral antihistamines). To treat very bad symptoms (oral corticosteroids). Skin care Put cool cloths (compresses) on the affected areas. Do not scratch or rub your skin. Avoid covering the rash. Make sure that the rash is exposed to air as much as possible. Managing itching and discomfort Avoid hot showers or baths. These can make itching worse. A cold shower may help. Try taking a bath with: ?Epsom salts. You can get these at your local pharmacy or grocery store. Follow the instructions onthe package. ?Baking soda. Pour a small amount into the bath as told by your doctor. ?Colloidal oatmeal. You can get this at your local pharmacy or grocery store. Follow the instructions on the package. Try putting baking soda paste onto your skin. Stir water into baking soda until it gets like a paste. Try putting on a lotion that relieves itchiness (calamine lotion). Keep cool and out of the sun. Sweating and being hot can make itching worse. General instructions Rest as needed. Drink enough fluid to keep your pee (urine) pale yellow. Wear loose-fitting clothing. Avoid scented soaps, detergents, and perfumes. Use gentle soaps, detergents, perfumes, and other cosmetic products. Avoid anything that causes your rash. Keep a journal to help track what causes your rash. Write down: ?What you eat. ?What cosmetic products you use. ?What you drink. ?What you wear. This includes jewelry. Keep all follow-up visits as told by your doctor. This is important. Contact a doctor if: You sweat at night. You lose weight. You pee (urinate) more than normal. You pee less than normal, or you notice that your pee is a darker color than normal. You feel weak. You throw up (vomit). Your skin or the whites of your eyes look yellow (jaundice). Your skin: ?Tingles. ?Is numb. Your rash: ?Does not go away after a few days. ?Gets worse. You are: ?More thirsty than normal. ?More tired than normal. You have: ?New symptoms. ?Pain in your belly (abdomen). ?A fever. ?Watery poop (diarrhea). Get help right away if: You have a fever and your symptoms suddenly get worse. You start to feel mixed up (confused). You have a very bad headache or a stiff neck. You have very bad joint pains or stiffness. You have jerky movements that you cannot control (seizure). Your rash covers all or most of your body. The rash may or may not be painful. You have blisters that: ?Are on top of the rash. ?Grow larger. ?Grow together. ?Are painful. ?Are inside your nose or mouth. You have a rash that: ?Looks like purple pinprick-sized spots all over your body. ?Has a bull's eye or looks like a target. ?Is red and painful, causes your skin to peel, and is not from being in the sun too long. Summary A rash is a change in the color of your skin. A rash can also change the way your skin feels. The goal of treatment is to stop the itching and keep the rash from spreading. Take or apply xvhq-dkf-wedvirc and prescription medicines only as told by your doctor. Contact a doctor if you have new symptoms or symptoms that get worse. Keep all follow-up visits as told by your doctor. This is important. This information is not intended to replace advice given to you by your health care provider. Make sure you discuss any questions you have with your health care provider. Document Revised: 02/20/2022 Document Reviewed: 02/20/2022 [employer] Patient Education 2022 [employer]. 09/01/2023 16:21:55 Dysuria Dysuria Dysuria is pain or discomfort during urination. The pain or discomfort may be felt in the part of the body that drains urine from the bladder (urethra) or in the surrounding tissue of the genitals. The pain may also be felt in the groin area, lower abdomen, or lower back. You may have to urinate frequently or have the sudden feeling that you have to urinate (urgency). Dysuria can affect anyone, but it is more common in females. Dysuria can be caused by many different things, including: Urinary tract infection. Kidney stones or bladder stones. Certain STIs (sexually transmitted infections), such as chlamydia. Dehydration. Inflammation of the tissues of the vagina. Use of certain medicines. Use of certain soaps or scented products that cause irritation. Follow these instructions at home: Medicines Take xixw-tky-iwggelb and prescription medicines only as told by your health care provider. If you were prescribed an antibiotic medicine, take it as told by your health care provider. Do notstop taking the antibiotic even if you start to feel better. Eating and drinking Drink enough fluid to keep your urine pale yellow. Avoid caffeinated beverages, tea, and alcohol. These beverages can irritate the bladder and make dysuria worse. In males, alcohol may irritate the prostate. General instructions Watch your condition for any changes. Urinate often. Avoid holding urine for long periods of time. If you are female, you should wipe from front to back after urinating or having a bowel movement. Use each piece of toilet paper only once. Empty your bladder after sex. Keep all follow-up visits. This is important. If you had any tests done to find the cause of dysuria, it is up to you to get your test results. Ask your health care provider, or the department that is doing the test, when your results will be ready. Contact a health care provider if: You have a fever. You develop pain in your back or sides. You have nausea or vomiting. You have blood in your urine. You are not urinating as often as you usually do. Get help right away if: Your pain is severe and not relieved with medicines. You cannot eat or drink without vomiting. You are confused. You have a rapid heartbeat while resting. You have shaking or chills. You feel extremely weak. Summary Dysuria is pain or discomfort while urinating. Many different conditions can lead to dysuria. If you have dysuria, you may have to urinate frequently or have the sudden feeling that you have tourinate (urgency). Watch your condition for any changes. Keep all follow-up visits. Make sure that you urinate often and drink enough fluid to keep your urine pale yellow. This information is not intended to replace advice given to you by your health care provider. Make sure you discuss any questions you have with your health care provider. Document Revised: 12/21/2020 Document Reviewed: 12/21/2020 App [employer] Patient Education 2022 [employer]. [facility] 08-25-2023 Hospital Discharge instructions Patient Education 01/16/2023 11:11:04 Obesity, Adult, Lwoz-vo-Mrls Obesity, Adult Obesity is having too much body fat. Being obese means that your weight is more than what is healthy for you. BMI (body mass index) is a number that explains how much body fat you have. If you have a BMI of 30or more, you are obese. Obesity can cause serious health problems, such as: Stroke. Coronary artery disease (CAD). Type 2 diabetes. Some types of cancer. High blood pressure (hypertension). High cholesterol. Gallbladder stones. Obesity can also contribute to: Osteoarthritis. Sleep apnea. Infertility problems. What are the causes? Eating meals each day that are high in calories, sugar, and fat. Drinking a lot of drinks that have sugar in them. Being born with genes that may make you more likely to become obese. Having a medical condition that causes obesity. Taking certain medicines. Sitting a lot (having a sedentary lifestyle). Not getting enough sleep. What increases the risk? Having a family history of obesity. Living in an area with limited access to: ?[place], recreation centers, or sidewalks. ?Healthy food choices, such as grocery stores and [employer]. What are the signs or symptoms? The main sign is having too much body fat. How is this treated? Treatment for this condition often includes changing your lifestyle. Treatment may include: Changing your diet. This may include making a healthy meal plan. Exercise. This may include activity that causes your heart to beat faster (aerobic exercise) and strength training. Work with your doctor to design a program that works for you. Medicine to help you lose weight. This may be used if you are not able to lose one pound a week after 6 weeks of healthy eating and more exercise. Treating conditions that cause the obesity. Surgery. Options may include gastric banding and gastric bypass. This may be done if: ?Other treatments have not helped to improve your condition. ?You have a BMI of 40 or higher. ?You have life-threatening health problems related to obesity. Follow these instructions at home: Eating and drinking Follow advice from your doctor about what to eat and drink. Your doctor may tell you to: ?Limit fast food, sweets, and processed snack foods. ?Choose low-fat options. For example, choose low-fat milk instead of whole milk. ?Eat five or more servings of fruits or vegetables each day. ?Eat at home more often. This gives you more control over what you eat. ?Choose healthy foods when you eat out. ?Learn to read food labels. This will help you learn how much food is in one serving. ?Keep low-fat snacks available. ?Avoid drinks that have a lot of sugar in them. These include soda, fruit juice, iced tea with sugar, and flavored milk. Drink enough water to keep your pee (urine) pale yellow. Do not go on fad diets. Physical activity Exercise often, as told by your doctor. Most adults should get up to 150 minutes of moderate-intensity exercise every week.Ask your doctor: ?What types of exercise are safe for you. ?How often you should exercise. Warm up and stretch before being active. Do slow stretching after being active (cool down). Rest between times of being active. Lifestyle Work with your doctor and a food expert (dietitian) to set a weight-loss goal that is best for you. Limit your screen time. Find ways to reward yourself that do not involve food. Do not drink alcohol if: ?Your doctor tells you not to drink. ?You are , may be , or are planning to become . If you drink alcohol: ?Limit how much you have to: ?0 1 drink a day for women. ?0 2 drinks a day for men. ?Know how much alcohol is in your drink. In the [place] one drink equals one 12 oz bottle of beer (355 mL), one 5 oz glass of wine (148 mL), or one 1 oz glass of hard liquor (44 mL). General instructions Keep a weight-loss journal. This can help you keep track of: ?The food that you eat. ?How much exercise you get. Take xabr-hpc-hrtqgto and prescription medicines only as told by your doctor. Take vitamins and supplements only as told by your doctor. Think about joining a support group. Pay attention to your mental health as obesity can lead to depression or self esteem issues. Keep all follow-up visits. Contact a doctor if: You cannot meet your weight-loss goal after you have changed your diet and lifestyle for 6 weeks. You are having trouble breathing. Summary Obesity is having too much body fat. Being obese means that your weight is more than what is healthy for you. Work with your doctor to set a weight-loss goal. Get regular exercise as told by your doctor. This information is not intended to replace advice given to you by your health care provider. Make sure you discuss any questions you have with your health care provider. Document Revised: 12/17/2021 Document Reviewed: 12/17/2021 [employer] Patient Education 2022 [employer]. Follow Up Care 12/09/2022 15:41:12 With:TOMEKA BAEFP, Andreas Arenas, RODRI, PED Address: [facility] [place] [address]- When:Within 1 Month(s) [facility] 08-08-2023 Hospital Discharge instructions Patient Education 12/30/2022 17:25:59 Menorrhagia, Wnja-cq-Fpgx Menorrhagia Menorrhagia is when your monthly periods are heavy or last longer than normal. If you have this condition, bleeding and cramping may make it hard for you to do your daily activities. What are the causes? Common causes of this condition include: Growths in the womb (uterus). These are polyps or fibroids. These growths are not cancer. Problems with two hormones called estrogen and progesterone. One of the ovaries not releasing an egg during one or more months. A problem with the thyroid gland. Having a device for control (IUD). Side effects of some medicines, such as NSAIDs or blood thinners. A disorder that stops the blood from clotting normally. What increases the risk? You are more likely to have this condition if you have cancer of the womb. What are the signs or symptoms? Having to change your pad or tampon every 1 2 hours because it is soaked. Needing to use pads and tampons at the same time because of heavy bleeding. Needing to wake up to change your pads or tampons during the night. Passing blood clots larger than 1 inch (2.5 cm) in size. Having bleeding that lasts for more than 7 days. Having symptoms of low iron levels (anemia), such as feeling tired or having shortness of breath. How is this treated? You may not need to be treated for this condition. But if you need treatment, you may be given medicines: To reduce bleeding during your period. These include control medicines. To make your blood thick. This slows bleeding. To reduce swelling. Medicines that do this include ibuprofen. That have a hormone called progestin. That make the ovaries stop working for a short time. To treat low iron levels. You will be given iron pills if you have this condition. If medicines do not work, surgery may be done. Surgery may be done to: Remove a part of the lining of the womb. This lining is called the endometrium. This reduces bleeding during a period. Remove growths in the womb. These may be polyps or fibroids. Remove the entire lining of the womb. Remove the womb entirely. This procedure is called a hysterectomy. Follow these instructions at home: Medicines Take vpki-iay-rmkndkx and prescription medicines only as told by your doctor. This includes iron pills. Do not change or switch medicines without asking your doctor. Do not take aspirin or medicines that contain aspirin 1 week before or during your period. Aspirin may make bleeding worse. Managing constipation Iron pills may cause trouble pooping (constipation). To prevent or treat problems when pooping, youmay need to: Drink enough fluid to keep your pee (urine) pale yellow. Take acre-aof-dkdwgoe or prescription medicines. Eat foods that are high in fiber. These include beans, whole grains, and fresh fruits and vegetables. Limit foods that are high in fat and sugar. These include fried or sweet foods. General instructions If you need to change your pad or tampon more than once every 2 hours, limit your activity until the bleeding stops. Eat healthy meals and foods that are high in iron. Foods that have a lot of iron include: ?Leafy green vegetables. ?Meat. ?Liver. ?Eggs. ?Whole-grain breads and cereals. Do not try to lose weight until your heavy bleeding has stopped and you have normal amounts of ironin your blood. If you need to lose weight, work with your doctor. Keep all follow-up visits. Contact a doctor if: You soak through a pad or tampon every 1 or 2 hours, and this happens every time you have a period. You need to use pads and tampons at the same time because you are bleeding so much. You are taking medicine, and: ?You feel like you may vomit. ?You vomit. ?You have watery poop (diarrhea). You have other problems that may be related to the medicine you are taking. Get help right away if: You soak through more than a pad or tampon in 1 hour. You pass clots bigger than 1 inch (2.5 cm) wide. You feel short of breath. You feel like your heart is beating too fast. You feel dizzy or you faint. You feel very weak or tired. Summary Menorrhagia is when your menstrual periods are heavy or last longer than normal. You may not need to be treated for this condition. If you need treatment, you may be given medicines or have surgery. Take hrlh-lun-dakzffo and prescription medicines only as told by your doctor. This includes iron pills. Get help right away if you soak through more than a pad or tampon in 1 hour or you pass large clots. Also, get help right away if you feel dizzy, short of breath, or very weak or tired. This information is not intended to replace advice given to you by your health care provider. Make sure you discuss any questions you have with your health care provider. Document Revised: 01/22/2021 Document Reviewed: 01/22/2021 [employer] Patient Education 2022 [employer] 12/30/2022 17:25:59 Abnormal Uterine Bleeding, Gwhg-ii-Uaoi Abnormal Uterine Bleeding Abnormal uterine bleeding means bleeding more than normal from your womb (uterus). It can include: Bleeding after sex. Bleeding between monthly (menstrual) periods. Bleeding that is heavier than normal. Monthly periods that last longer than normal. Bleeding after you have stopped having your monthly period (menopause). You should see a doctor for any kind of bleeding that is not normal. Treatment depends on the causeof your bleeding and how much you bleed. Follow these instructions at home: Medicines Take azvl-nkb-gglspdb and prescription medicines only as told by your doctor. Ask your doctor about: ?Taking medicines such as aspirin and ibuprofen. Do not take these medicines unless your doctor tells you to take them. ?Taking hknu-iyq-phfbmqf medicines, vitamins, herbs, and supplements. You may be given iron pills. Take them as told by your doctor. Managing constipation If you take iron pills, you may need to take these actions to prevent or treat trouble pooping (constipation): Drink enough fluid to keep your pee (urine) pale yellow. Take ruwp-vqj-qwqxzxy or prescription medicines. Eat foods that are high in fiber. These include beans, whole grains, and fresh fruits and vegetables. Limit foods that are high in fat and sugar. These include fried or sweet foods. Activity Change your activity to decrease bleeding if you need to change your sanitary pad more than one time every 2 hours: Lie in bed with your feet raised (elevated). Place a cold pack on your lower belly. Rest as much as you are able until the bleeding stops or slows down. General instructions Do not use tampons, douche, or have sex until your doctor says these things are okay. Change your pads often. Get regular exams. These include: ?Pelvic exams. ?Screenings for cancer of the cervix. It is up to you to get the results of any tests that are done. Ask how to get your results when they are ready. Watch for any changes in your bleeding. For 2 months, write down: ?When your monthly period starts. ?When your monthly period ends. ?When you get any abnormal bleeding from your vagina. ?What problems you notice. Keep all follow-up visits. Contact a doctor if: The bleeding lasts more than one week. You feel dizzy at times. You feel like you may vomit (nausea). You vomit. You feel light-headed or weak. Your symptoms get worse. Get help right away if: You faint. You have to change pads every hour. You have pain in your belly. You have a fever or chills. You get sweaty or weak. You pass large blood clots from your vagina. These symptoms may be an emergency. Get help right away. Call your local emergency services (911 int [place] Do not wait to see if the symptoms will go away. Do not drive yourself to the hospital. Summary Abnormal uterine bleeding means bleeding more than normal from your womb (uterus). Any kind of bleeding that is not normal should be checked by a doctor. Treatment depends on the cause of your bleeding and how much you bleed. Get help right away if you faint, you have to change pads every hour, or you pass large blood clotsfrom your vagina. This information is not intended to replace advice given to you by your health care provider. Make sure you discuss any questions you have with your health care provider. Document Revised: 09/10/2021 Document Reviewed: 09/10/2021 App Press Patient Education 2022 [employer]. 12/30/2022 17:25:59 Abdominal Pain, Adult, Jyrj-ma-Pmyp Abdominal Pain, Adult Many things can cause belly (abdominal) pain. Most times, belly pain is not dangerous. Many cases of belly pain can be watched and treated at home. Sometimes, though, belly pain is serious. Your doctor will try to find the cause of your belly pain. Follow these instructions at home: Medicines Take iykx-dkd-ivstoca and prescription medicines only as told by your doctor. Do not take medicines that help you poop (laxatives) unless told by your doctor. General instructions Watch your belly pain for any changes. Drink enough fluid to keep your pee (urine) pale yellow. Keep all follow-up visits as told by your doctor. This is important. Contact a doctor if: Your belly pain changes or gets worse. You are not hungry, or you lose weight without trying. You are having trouble pooping (constipated) or have watery poop (diarrhea) for more than 2 3 days. You have pain when you pee or poop. Your belly pain wakes you up at night. Your pain gets worse with meals, after eating, or with certain foods. You are vomiting and cannot keep anything down. You have a fever. You have blood in your pee. Get help right away if: Your pain does not go away as soon as your doctor says it should. You cannot stop vomiting. Your pain is only in areas of your belly, such as the right side or the left lower part of the belly. You have bloody or black poop, or poop that looks like tar. You have very bad pain, cramping, or bloating in your belly. You have signs of not having enough fluid or water in your body (dehydration), such as: ?Dark pee, very little pee, or no pee. ?Cracked lips. ?Dry mouth. ?Sunken eyes. ?Sleepiness. ?Weakness. You have trouble breathing or chest pain. Summary Many cases of belly pain can be watched and treated at home. Watch your belly pain for any changes. Take lfrq-iae-vgqrwtt and prescription medicines only as told by your doctor. Contact a doctor if your belly pain changes or gets worse. Get help right away if you have very bad pain, cramping, or bloating in your belly. This information is not intended to replace advice given to you by your health care provider. Make sure you discuss any questions you have with your health care provider. Document Revised: 09/19/2019 Document Reviewed: 09/19/2019 App Press Patient Education 2022 [employer]. Follow Up Care 12/30/2022 13:42:46 With:Dada PERKINS Address: [address] [place] [address]- Business (1) When:01/02/2023 17:12:57 With:Andreas ECKERT Address: [address] [place] [address] [place] [address] Business (1) When:Within 3 Day(s) [facility]07-19-2023 Evaluation + Plan noteExtracted from: Title:Clinical Document Author:Lindsey Fuller MD Date:12/10/22 Procedure: Right sided lumbo sacral transforaminal epidural steroid injection under fluoroscopic guidance of the right L5 nerve root at the right L5-S1 foramen and of the right S1 nerve root at the first sacral foramen on the right Diagnosis: Lumbosacral radiculopathy Solution: 1 mL of lidocaine 2%, 3 mL normal saline, and 1 mL of Kenalog 40 mg. 5 mL total. 2.5 mL per site Contrast: 1 mL Isovue per site Local anesthetic: 2 mL of lidocaine 1% per site Anesthesia: Local Complications: None Notes: The patient has a greater than 3-month history of severe low back and leg pain. The patient has had 6 weeks of conservative management with therapy exercises and medications and is compliant with a home exercise program. The patient does not desire spine surgery. The pain limits the patient's quality of life and function. Specifically she cannot walk 100 yards or sleep longer than 6 hours due to the pain. The patient's imaging is notable for a right-sided herniation at L5-S1 with right-sided neuroforaminal stenosis with compression of the right L5 nerve root and right-sided recess stenosis with compression of the right S1 nerve root which correlates with the location of her radicular symptoms so the procedure was performed at those 2 levels. After informed consent was obtained the patient was brought to the OR and placed in the prone position. The area in question was prepped and draped in sterile fashion. An ipsilateral oblique fluoroscopic view of the lumbosacral spine was obtained and after local anesthetic was administered into the skin a 22-gauge Chiba needle was inserted into the skin and advanced to the 6 clock position beneath the right L5 pedicle and a 25-gauge Quincke needle was inserted into the skin and advanced into the right S1 foramen under intermittent fluoroscopic guidance. Proper needle position was confirmed by AP and lateral fluoroscopy. Contrast was administered under live fluoroscopy at each site in both views and demonstrated appropriate epidural and nerve root uptake and the absence of any intravascular or intrathecal spread. The local anesthetic steroid solution was injected incrementally. The needles were removed. Bleeding was nil. The patient tolerated the procedure well and was transferred to the recovery room in good condition. Future Appointments Appointment Date:01/16/2023 10:20:00 AM Scheduled Provider:Andreas ECKERT DO, FAAFP Location:[facility] Appointment Type:FM Open Appointment Date:05/04/2023 10:30:00 AM Scheduled Provider:Daja Ho Location:.ONCOLOGY Appointment Type:ONC Office Visit 30 (FT) Future Scheduled Tests Laboratory* CBC w/ Auto Diff 12/29/22 * CBC w/ Auto Diff 04/30/23 * Comprehensive Metabolic Panel 12/29/22 * Comprehensive Metabolic Panel 04/30/23 * Ferritin 12/29/22 * Ferritin 04/30/23 * Folate Level 12/29/22 * Folate Level 04/30/23 * Iron Level 12/29/22 * Iron Level 04/30/23 * Iron Percent Saturation 12/29/22 * Iron Percent Saturation 04/30/23 * Vitamin B12 Level 12/29/22 * Vitamin B12 Level 04/30/23 Radiology* NM Myocardial Spect Part 2 12/23/[address] [facility]07-18-2023 Hospital Discharge instructions Patient Education 12/09/2022 15:42:51 Palpitations, Gtyt-ly-Sgon Palpitations Palpitations are feelings that your heartbeat is not normal. Your heartbeat may feel like it is: Uneven (irregular). Faster than normal. Fluttering. Skipping a beat. This is usually not a serious problem. However, a doctor will do tests and check your medical history to make sure that you do not have a serious heart problem. Follow these instructions at home: Watch for any changes in your condition. Tell your doctor about any changes. Take these actions to help manage your symptoms: Eating and drinking Follow instructions from your doctor about things to eat and drink. You may be told to avoid these things: Drinks that have caffeine in them, such as coffee, tea, soft drinks, and energy drinks. Chocolate. Alcohol. Diet pills. Lifestyle Try to lower your stress. These things can help you relax: ?Yoga. ?Deep breathing and meditation. ?Guided imagery. This is using words and images to create positive thoughts. ?Exercise, including swimming, jogging, and walking. Tell your doctor if you have more abnormal heartbeats when you are active. If you have chest pain or feel short of breath with exercise, do not keep doing the exercise until you are seen by your doctor. ?Biofeedback. This is using your mind to control things in your body, such as your heartbeat. Get plenty of rest and sleep. Keep a regular bed time. Do not use drugs, such as cocaine or ecstasy. Do not use marijuana. Do not smoke or use any products that contain nicotine or tobacco. If you need help quitting, ask your doctor. General instructions Take bnqh-uzn-jezrgld and prescription medicines only as told by your doctor. Keep all follow-up visits. You may need more tests if palpitations do not go away or get worse. Contact a doctor if: You keep having fast or uneven heartbeats for a long time. Your symptoms happen more often. Get help right away if: You have chest pain. You feel short of breath. You have a very bad headache. You feel dizzy. You faint. These symptoms may be an emergency. Get help right away. Call your local emergency services (911 int [place] Do not wait to see if the symptoms will go away. Do not drive yourself to the hospital. Summary Palpitations are feelings that your heartbeat is uneven or faster than normal. It may feel like your heart is fluttering or skipping a beat. Avoid food and drinks that may cause this condition. These include caffeine, chocolate, and alcohol. Try to lower your stress. Do not smoke or use drugs. Get help right away if you faint, feel dizzy, feel short of breath, have chest pain, or have a verybad headache. This information is not intended to replace advice given to you by your health care provider. Make sure you discuss any questions you have with your health care provider. Document Revised: 10/02/2021 Document Reviewed: 10/02/2021 App Press Patient Education 2022 [employer]. Follow Up Care 12/05/2022 08:44:28 With:TOMEKA MITTAL FAAFP, Andreas Arenas, RODRI, PED [facility] [place] [address]- When:Within 1 Month(s) [facility] 06-22-2023 Evaluation + Plan noteExtracted from: Title:Clinical Document Author:Lindsey Fuller MD Date:11/13/22 Chief complaint: Low back an d right leg pain History of present illness: This is a 47-year-old female here for a chief complaint of right-sided low back and leg pain. The patient rates the pain as a 1 out of 10 at rest but it can get up to a 6-7 out of 10 with activity. She reports over the past 3 months the symptoms have gotten severe again. The pain will radiate from the lower back on down the right leg and the top and bottom of the right foot. She will get numbness and tingling in the same distribution. She denies actual weakness. She cannot walk 100 yards or sleep longer than 6 hours due to the pain. She denies left-sided symptoms. She last underwent a right-sided lumbar transforaminal epidural steroid injection in January of last year. She had 90% pain relief and functional improvement for 3-1/2 months and then continued to have 60% improvement for another 2 months. She is still using gabapentin and Flexeril which have been effective. She is still doing her home exercises that she learned in physical therapy for her lower back and has been for over a year. She has also been exercising and walking daily and is still losing weight. Overall she is down 45 pounds. At her last visit 3 months ago she underwent trigger point injections for her myofascial pain in the upper back. She reports those symptoms have been improved by over 90% and are not bothersome now. Her only new symptom is for the past month or so she has had pain and tingling from the left elbow down to the left hand. In particular it would get into the fourth and fifth digits. Occasionally will radiate up to the shoulder. She denies any trauma. She denies any weakness or clumsiness of the hands. She denies any issues with her balance. She reports that her migraine headaches have remained under excellent control since the last Botox injections. The patient denies additional neurologic symptoms or issues with bladder or bowel control. The patient's past medical, surgical, and social history along with medications and allergies were reviewed. Review of systems was done on 10 systems Physical examination: General: Pleasant white female in no acute distress. Patient appears well- nourished. Vital signs stable Head exam: Head is normocephalic and external ears are normal Neck exam: No tenderness. Spurling sign negative bilaterally Cardiovascular exam: No signs of poor perfusion and no peripheral edema Respiratory exam: Breathing is unlabored and there is no wheezing present Abdomen exam: Abdomen soft and nondistended Back exam: Right greater than left lumbar paraspinal tenderness Musculoskeletal exam: Strength 5-5. Muscle tone is normal. Neurologic exam: Sensation intact. Reflexes normal and symmetric. Karen sign negative bilaterally. Psych exam: Affect is appropriate. Alert and oriented Skin exam: No lesions Assessment: The patient's signs and symptoms are consistent with lumbosacral radiculopathy, lumbar disc displacement, and lumbosacral spondylosis. We reviewed the patient's imaging. She has a right-sided herniation at L5-S1 with right-sided neuroforaminal stenosis with compression of the right L5 nerve root and right-sided recess stenosis with compression of the right S1 nerve root which correlates with her radicular symptoms. Her arm symptoms are consistent with ulnar neuropathy although cervical radiculopathy is also a possibility. Oswestry disability index score was 52% OARRS report was reviewed and was appropriate Plan: We discussed options. With regard to her radicular symptoms in the leg she has had long-term relief from the previous procedures and does not desire surgery so we will proceed with a right L5 and S1 transforaminal epidural steroid injection under fluoroscopy at her next visit. With regard to her left arm symptoms they have only been going on for short period of time and she does not have any alarm symptoms so we will just monitor things for now. If they persist we will consider imaging versus an EMG. I will continue the Neurontin and Flexeril since those have remained effective and she will also continue with her home exercises as well as her efforts toward weight loss. We discussed the potential risks and benefits of this plan and the patient was in agreement to proceed. We will have the patient follow-up 4 weeks after the procedure for repeat evaluation. Over 30 minutes was spent caring for the patient in total. Future Appointments Appointment Date:12/05/2022 08:20:00 AM Scheduled Provider:Andreas ECKERT DO, FAAFP Location:[facility] Appointment Type: Open Appointment Date:05/04/2023 10:30:00 AM Scheduled Provider:Daja Ho [facility] Type:ON[facility] Office Visit 30 (FT) Future Scheduled Tests Laboratory* CBC w/ Auto Diff 12/29/22 * CBC w/ Auto Diff 04/30/23 * Comprehensive Metabolic Panel 12/29/22 * Comprehensive Metabolic Panel 04/30/23 * Ferritin 12/29/22 * Ferritin 04/30/23 * Folate Level 12/29/22 * Folate Level 04/30/23 * Iron Level 12/29/22 * Iron Level 04/30/23 * Iron Percent Saturation 12/29/22 * Iron Percent Saturation 04/30/23 * Vitamin B12 Level 12/29/22 * Vitamin B12 Level 04/30/23 Radiology* NM Myocardial Spect Part 2 12/23/[address] [facility]06-13-2023 Hospital Discharge instructions Patient Education 11/04/2022 08:59:42 CPAP and BIPAP Information CPAP and BIPAP Information CPAP and BIPAP are methods that use air pressure to keep your airways open and to help you breathe well. CPAP and BIPAP use different amounts of pressure. Your health care provider will tell you whether CPAP or BIPAP would be more helpful for you. CPAP stands for continuous positive airway pressure. With CPAP, the amount of pressure stays the same while you breathe in (inhale) and out (exhale). BIPAP stands for bi-level positive airway pressure. With BIPAP, the amount of pressure will be higher when you inhale and lower when you exhale. This allows you to take larger breaths. CPAP or BIPAP may be used in the hospital, or your health care provider may want you to use it at home. You may need to have a sleep study before your health care provider can order a machine for youto use at home. What are the advantages? CPAP or BIPAP can be helpful if you have: Sleep apnea. Chronic obstructive pulmonary disease (COPD). Heart failure. Medical conditions that cause muscle weakness, including muscular dystrophy or amyotrophic lateral sclerosis (ALS). Other problems that cause breathing to be shallow, weak, abnormal, or difficult. CPAP and BIPAP are most commonly used for obstructive sleep apnea (ERNST) to keep the airways from collapsing when the muscles relax during sleep. What are the risks? Generally, this is a safe treatment. However, problems may occur, including: Irritated skin or skin sores if the mask does not fit properly. Dry or stuffy nose or nosebleeds. Dry mouth. Feeling gassy or bloated. Sinus or lung infection if the equipment is not cleaned properly. When should CPAP or BIPAP be used? In most cases, the mask only needs to be worn during sleep. Generally, the mask needs to be worn throughout the night and during any daytime naps. People with certain medical conditions may also needto wear the mask at other times, such as when they are awake. Follow instructions from your health care provider about when to use the machine. What happens during CPAP or BIPAP? Both CPAP and BIPAP are provided by a small machine with a flexible plastic tube that attaches to aplastic mask that you wear. Air is blown through the mask into your nose or mouth. The amount of pressure that is used to blow the air can be adjusted on the machine. Your health care provider will set the pressure setting and help you find the best mask for you. Tips for using the mask Because the mask needs to be snug, some people feel trapped or closed-in (claustrophobic) when first using the mask. If you feel this way, you may need to get used to the mask. One way to do this is to hold the mask loosely over your nose or mouth and then gradually apply the mask more snugly. You can also gradually increase the amount of time that you use the mask. Masks are available in various types and sizes. If your mask does not fit well, talk with your health care provider about getting a different one. Some common types of masks include: ?Full face masks, which fit over the mouth and nose. ?Nasal masks, which fit over the nose. ?Nasal pillow or prong masks, which fit into the nostrils. If you are using a mask that fits over your nose and you tend to breathe through your mouth, a chinstrap may be applied to help keep your mouth closed. Use a skin barrier to protect your skin as told by your health care provider. Some CPAP and BIPAP machines have alarms that may sound if the mask comes off or develops a leak. If you have trouble with the mask, it is very important that you talk with your health care provider about finding a way to make the mask easier to tolerate. Do not stop using the mask. There could be a negative impact on your health if you stop using the mask. Tips for using the machine Place your CPAP or BIPAP machine on a secure table or stand near an electrical outlet. Know where the on/off switch is on the machine. Follow instructions from your health care provider about how to set the pressure on your machine and when you should use it. Do not eat or drink while the CPAP or BIPAP machine is on. Food or fluids could get pushed into your lungs by the pressure of the CPAP or BIPAP. For home use, CPAP and BIPAP machines can be rented or purchased through home health care companies. Many different brands of machines are available. Renting a machine before purchasing may help you find out which particular machine works well for you. Your health insurance company may also decide which machine you may get. Keep the CPAP or BIPAP machine and attachments clean. Ask your health care provider for specific instructions. Check the humidifier if you have a dry stuffy nose or nosebleeds. Make sure it is working correctly. Follow these instructions at home: Take oavy-gbg-vskmunz and prescription medicines only as told by your health care provider. Ask if you can take sinus medicine if your sinuses are blocked. Do not use any products that contain nicotine or tobacco. These products include cigarettes, chewing tobacco, and vaping devices, such as e-cigarettes. If you need help quitting, ask your health careprovider. Keep all follow-up visits. This is important. Contact a health care provider if: You have redness or pressure sores on your head, face, mouth, or nose from the mask or head gear. You have trouble using the CPAP or BIPAP machine. You cannot tolerate wearing the CPAP or BIPAP mask. Someone tells you that you snore even when wearing your CPAP or BIPAP. Get help right away if: You have trouble breathing. You feel confused. Summary CPAP and BIPAP are methods that use air pressure to keep your airways open and to help you breathe well. If you have trouble with the mask, it is very important that you talk with your health care provider about finding a way to make the mask easier to tolerate. Do not stop using the mask. There could be a negative impact to your health if you stop using the mask. Follow instructions from your health care provider about when to use the machine. This information is not intended to replace advice given to you by your health care provider. Make sure you discuss any questions you have with your health care provider. Document Revised: 12/18/2021 Document Reviewed: 04/19/2021 App Press Patient Education 2022 [employer]. Follow Up Care 08/04/2022 13:25:17 With:TOMEKA MITTAL FAAFP, Andreas Arenas, RODRI, PED Address: [address] [place] [address]- When:Within 1 Month(s) [facility] 06-01-2023 Hospital Discharge instructions Follow Up Care 10/23/2022 13:52:10 With:Hussain Varner Address: [facility] [place] [address]- [phone] Fax Business (1) When: Unknown Comments:follow-up as scheduled [facility]05-12-2023 Hospital Discharge instructions Patient Education 10/03/2022 08:53:57 Diabetes Mellitus and Nutrition, Adult Diabetes Mellitus and Nutrition, Adult When you have diabetes, or diabetes mellitus, it is very important to have healthy eating habits because your blood sugar (glucose) levels are greatly affected by what you eat and drink. Eating healthy foods in the right amounts, at about the same times every day, can help you: Manage your blood glucose. Lower your risk of heart disease. Improve your blood pressure. Reach or maintain a healthy weight. What can affect my meal plan? Every person with diabetes is different, and each person has different needs for a meal plan. Your health care provider may recommend that you work with a dietitian to make a meal plan that is best for you. Your meal plan may vary depending on factors such as: The calories you need. The medicines you take. Your weight. Your blood glucose, blood pressure, and cholesterol levels. Your activity level. Other health conditions you have, such as heart or kidney disease. How do carbohydrates affect me? Carbohydrates, also called carbs, affect your blood glucose level more than any other type of food.Eating carbs raises the amount of glucose in your blood. It is important to know how many carbs you can safely have in each meal. This is different for every person. Your dietitian can help you calculate how many carbs you should have at each meal and for each snack. How does alcohol affect me? Alcohol can cause a decrease in blood glucose (hypoglycemia), especially if you use insulin or takecertain diabetes medicines by mouth. Hypoglycemia can be a life-threatening condition. Symptoms of hypoglycemia, such as sleepiness, dizziness, and confusion, are similar to symptoms of having too much alcohol. Do not drink alcohol if: ?Your health care provider tells you not to drink. ?You are , may be , or are planning to become . If you drink alcohol: ?Limit how much you have to: ?0 1 drink a day for women. ?0 2 drinks a day for men. ?Know how much alcohol is in your drink. In the [place] one drink equals one 12 oz bottle of beer (355 mL), one 5 oz glass of wine (148 mL), or one 1 oz glass of hard liquor (44 mL). ?Keep yourself hydrated with water, diet soda, or unsweetened iced tea. Keep in mind that regular soda, juice, and other mixers may contain a lot of sugar and must be counted as carbs. What are tips for following this plan? Reading food labels Start by checking the serving size on the Nutrition Facts label of packaged foods and drinks. The number of calories and the amount of carbs, fats, and other nutrients listed on the label are based on one serving of the item. Many items contain more than one serving per package. Check the total grams (g) of carbs in one serving. Check the number of grams of saturated fats and trans fats in one serving. Choose foods that have alow amount or none of these fats. Check the number of milligrams (mg) of salt (sodium) in one serving. Most people should limit totalsodium intake to less than 2,300 mg per day. Always check the nutrition information of foods labeled as low-fat or nonfat. These foods may be higher in added sugar or refined carbs and should be avoided. Talk to your dietitian to identify your daily goals for nutrients listed on the label. Shopping Avoid buying canned, pre-made, or processed foods. These foods tend to be high in fat, sodium, and added sugar. Shop around the outside edge of the grocery store. This is where you will most often find fresh fruits and vegetables, bulk grains, fresh meats, and fresh dairy products. Cooking Use low-heat cooking methods, such as baking, instead of high-heat cooking methods, such as deep frying. Cook using healthy oils, such as olive, canola, or sunflower oil. Avoid cooking with butter, cream, or high-fat meats. Meal planning Eat meals and snacks regularly, preferably at the same times every day. Avoid going long periods oftime without eating. Eat foods that are high in fiber, such as fresh fruits, vegetables, beans, and whole grains. Eat 4 6 oz (112 168 g) of lean protein each day, such as lean meat, chicken, fish, eggs, or tofu. One ounce (oz) (28 g) of lean protein is equal to: ?1 oz (28 g) of meat, chicken, or fish. ?1 egg. ? cup (62 g) of tofu. Eat some foods each day that contain healthy fats, such as avocado, nuts, seeds, and fish. What foods should I eat? Fruits Berries. Apples. Oranges. Peaches. Apricots. Plums. Grapes. Mangoes. Papayas. Pomegranates. Kiwi. Cherries. Vegetables Leafy greens, including lettuce, spinach, kale, chard, dm greens, mustard greens, and cabbage.Beets. Cauliflower. Broccoli. Carrots. Green beans. Tomatoes. Peppers. Onions. Cucumbers. [place] sprouts. Grains Whole grains, such as whole-wheat or whole-grain bread, crackers, tortillas, cereal, and pasta. Unsweetened oatmeal. Quinoa. Brown or wild rice. Meats and other proteins Seafood. Poultry without skin. Lean cuts of poultry and beef. Tofu. Nuts. Seeds. Dairy Low-fat or fat-free dairy products such as milk, yogurt, and cheese. The items listed above may not be a complete list of foods and beverages you can eat and drink. Contact a dietitian for more information. What foods should I avoid? Fruits Fruits canned with syrup. Vegetables Canned vegetables. Frozen vegetables with butter or cream sauce. Grains Refined white flour and flour products such as bread, pasta, snack foods, and cereals. Avoid all processed foods. Meats and other proteins Fatty cuts of meat. Poultry with skin. Breaded or fried meats. Processed meat. Avoid saturated fats. Dairy Full-fat yogurt, cheese, or milk. Beverages Sweetened drinks, such as soda or iced tea. The items listed above may not be a complete list of foods and beverages you should avoid. Contact a dietitian for more information. Questions to ask a health care provider Do I need to meet with a certified diabetes care and special education aide? Do I need to meet with a dietitian? What number can I call if I have questions? When are the best times to check my blood glucose? Where to find more information: [place] Diabetes Association: diabetes.org Academy of Nutrition and Dietetics: eatright.org [place] of Diabetes and Digestive and Kidney Diseases: niddk.nih.gov Association of Diabetes Care & Education Specialists: diabeteseducator.org Summary It is important to have healthy eating habits because your blood sugar (glucose) levels are greatlyaffected by what you eat and drink. It is important to use alcohol carefully. A healthy meal plan will help you manage your blood glucose and lower your risk of heart disease. Your health care provider may recommend that you work with a dietitian to make a meal plan that is best for you. This information is not intended to replace advice given to you by your health care provider. Make sure you discuss any questions you have with your health care provider. Document Revised: 12/12/2020 Document Reviewed: 12/12/2020 [employer] Patient Education 2022 [employer]. Follow Up Care 08/04/2022 13:24:07 With:TOMEKA MITTAL FAAFP, RODRI Cervantes, PED Address: [address] [place] [id number]- When:Within 1 Month(s) [facility] 04-13-2023 Hospital Discharge instructions Patient Education 09/04/2022 09:01:04 Exercising to Lose Weight Exercising to Lose Weight Exercise is structured, repetitive physical activity to improve fitness and health. Getting regularexercise is important for everyone. It is especially important if you are overweight. Being overweight increases your risk of heart disease, stroke, diabetes, high blood pressure, and several types of cancer. Reducing your calorie intake and exercising can help you lose weight. Exercise is usually categorized as moderate or vigorous intensity. To lose weight, most people needto do a certain amount of moderate-intensity or vigorous-intensity exercise each week. Moderate-intensity exercise Moderate-intensity exercise is any activity that gets you moving enough to burn at least three times more energy (calories) than if you were sitting. Examples of moderate exercise include: Walking a mile in 15 minutes. Doing light yard work. Biking at an easy pace. Most people should get at least 150 minutes (2 hours and 30 minutes) a week of moderate-intensity exercise to maintain their body weight. Vigorous-intensity exercise Vigorous-intensity exercise is any activity that gets you moving enough to burn at least six times more calories than if you were sitting. When you exercise at this intensity, you should be working hard enough that you are not able to carry on a conversation. Examples of vigorous exercise include: Running. Playing a team sport, such as football, basketball, and soccer. Jumping rope. Most people should get at least 75 minutes (1 hour and 15 minutes) a week of vigorous-intensity exercise to maintain their body weight. How can exercise affect me? When you exercise enough to burn more calories than you eat, you lose weight. Exercise also reducesbody fat and builds muscle. The more muscle you have, the more calories you burn. Exercise also: Improves mood. Reduces stress and tension. Improves your overall fitness, flexibility, and endurance. Increases bone strength. The amount of exercise you need to lose weight depends on: Your age. The type of exercise. Any health conditions you have. Your overall physical ability. Talk to your health care provider about how much exercise you need and what types of activities aresafe for you. What actions can I take to lose weight? Nutrition Make changes to your diet as told by your health care provider or diet and rating specialist (dietitian). This may include: ?Eating fewer calories. ?Eating more protein. ?Eating less unhealthy fats. ?Eating a diet that includes fresh fruits and vegetables, whole grains, low-fat dairy products, andlean protein. ?Avoiding foods with added fat, salt, and sugar. Drink plenty of water while you exercise to prevent dehydration or heat stroke. Activity Choose an activity that you enjoy and set realistic goals. Your health care provider can help you make an exercise plan that works for you. Exercise at a moderate or vigorous intensity most days of the week. ?The intensity of exercise may vary from person to person. You can tell how intense a workout is for you by paying attention to your breathing and heartbeat. Most people will notice their breathing and heartbeat get faster with more intense exercise. Do resistance training twice each week, such as: ?Push-ups. ?Sit-ups. ?Lifting weights. ?Using resistance bands. Getting short amounts of exercise can be just as helpful as long structured periods of exercise. Ifyou have trouble finding time to exercise, try to include exercise in your daily routine. ?Get up, stretch, and walk around every 30 minutes throughout the day. ?Go for a walk during your lunch break. ?Park your car farther away from your destination. ?If you take public transportation, get off one stop early and walk the rest of the way. ?Make phone calls while standing up and walking around. ?Take the stairs instead of elevators or escalators. Wear comfortable clothes and shoes with good support. Do not exercise so much that you hurt yourself, feel dizzy, or get very short of breath. Where to find more information [place]. Department of Health and Human Services: www.hhs.gov Centers for Disease Control and Prevention (CDC): www.cdc.gov Contact a health care provider: Before starting a new exercise program. If you have questions or concerns about your weight. If you have a medical problem that keeps you from exercising. Get help right away if you have any of the following while exercising: Injury. Dizziness. Difficulty breathing or shortness of breath that does not go away when you stop exercising. Chest pain. Rapid heartbeat. Summary Being overweight increases your risk of heart disease, stroke, diabetes, high blood pressure, and several types of cancer. Losing weight happens when you burn more calories than you eat. Reducing the amount of calories you eat in addition to getting regular moderate or vigorous exercise each week helps you lose weight. This information is not intended to replace advice given to you by your health care provider. Make sure you discuss any questions you have with your health care provider. Document Released: 06/13/2011 Document Revised: 05/24/2018 Document Reviewed: 05/24/2018 [employer] Patient Education 2020 [employer]. Follow Up Care 08/04/2022 13:22:19 With:TOMEKA MITTAL FAAFP, Andreas Arenas, RODRI, PED [facility] [place] [address] When:Within 1 Month(s) [facility] 03-13-2023 Hospital Discharge instructions Patient Education 08/04/2022 13:29:09 Prediabetes Eating Plan Prediabetes Eating Plan Prediabetes is a condition that causes blood sugar (glucose) levels to be higher than normal. This increases the risk for developing diabetes. In order to prevent diabetes from developing, your health care provider may recommend a diet and other lifestyle changes to help you: Control your blood glucose levels. Improve your cholesterol levels. Manage your blood pressure. Your health care provider may recommend working with a diet and rating specialist (dietitian) tomake a meal plan that is best for you. What are tips for following this plan? Lifestyle Set weight loss goals with the help of your health care team. It is recommended that most people with prediabetes lose 7% of their current body weight. Exercise for at least 30 minutes at least 5 days a week. Attend a support group or seek ongoing support from a mental health counselor. Take ckeq-vyl-sdefjne and prescription medicines only as told by your health care provider. Reading food labels Read food labels to check the amount of fat, salt (sodium), and sugar in prepackaged foods. Avoid foods that have: ?Saturated fats. ?Trans fats. ?Added sugars. Avoid foods that have more than 300 milligrams (mg) of sodium per serving. Limit your daily sodium intake to less than 2,300 mg each day. Shopping Avoid buying pre-made and processed foods. Cooking Cook with olive oil. Do not use butter, lard, or ghee. Bake, broil, grill, or boil foods. Avoid frying. Meal planning Work with your dietitian to develop an eating plan that is right for you. This may include: ?Tracking how many calories you take in. Use a food diary, notebook, or mobile application to trackwhat you eat at each meal. ?Using the glycemic index (GI) to plan your meals. The index tells you how quickly a food will raise your blood glucose. Choose low-GI foods. These foods take a longer time to raise blood glucose. Consider following a Mediterranean diet. This diet includes: ?Several servings each day of fresh fruits and vegetables. ?Eating fish at least twice a week. ?Several servings each day of whole grains, beans, nuts, and seeds. ?Using olive oil instead of other fats. ?Moderate alcohol consumption. ?Eating small amounts of red meat and whole-fat dairy. If you have high blood pressure, you may need to limit your sodium intake or follow a diet such as the DASH eating plan. DASH is an eating plan that aims to lower high blood pressure. What foods are recommended? The items listed below may not be a complete list. Talk with your dietitian about what dietary choices are best for you. Grains Whole grains, such as whole-wheat or whole-grain breads, crackers, cereals, and pasta. Unsweetened oatmeal. Bulgur. Barley. Quinoa. Brown rice. [place] or whole- wheat flour tortillas or taco shells. Vegetables Lettuce. Spinach. Peas. Beets. Cauliflower. Cabbage. Broccoli. Carrots. Tomatoes. Squash. Eggplant.Herbs. Peppers. Onions. Cucumbers. [place] sprouts. Fruits Berries. Bananas. Apples. Oranges. Grapes. Papaya. Jose J. Pomegranate. Kiwi. Grapefruit. Cherries. Meats and other protein foods Seafood. Poultry without skin. Lean cuts of pork and beef. Tofu. Eggs. Nuts. Beans. Dairy Low-fat or fat-free dairy products, such as yogurt, cottage cheese, and cheese. Beverages Water. Tea. Coffee. Sugar-free or diet soda. [place] water. Lowfat or no-fat milk. Milk alternatives, such as soy or almond milk. Fats and oils [place] oil. Canola oil. [place] oil. Grapeseed oil. Avocado. Walnuts. Sweets and desserts Sugar-free or low-fat pudding. Sugar-free or low-fat ice cream and other frozen treats. Seasoning and other foods Herbs. Sodium-free spices. Mustard. Relish. Low-fat, low-sugar ketchup. Low-fat, low-sugar barbecuesauce. Low-fat or fat-free mayonnaise. What foods are not recommended? The items listed below may not be a complete list. Talk with your dietitian about what dietary choices are best for you. Grains Refined white flour and flour products, such as bread, pasta, snack foods, and cereals. Vegetables Canned vegetables. Frozen vegetables with butter or cream sauce. Fruits Fruits canned with syrup. Meats and other protein foods Fatty cuts of meat. Poultry with skin. Breaded or fried meat. Processed meats. Dairy Full-fat yogurt, cheese, or milk. Beverages Sweetened drinks, such as sweet iced tea and soda. Fats and oils Butter. Lard. Ghee. Sweets and desserts Baked goods, such as cake, cupcakes, pastries, cookies, and cheesecake. Seasoning and other foods Spice mixes with added salt. Ketchup. Barbecue sauce. Mayonnaise. Summary To prevent diabetes from developing, you may need to make diet and other lifestyle changes to help control blood sugar, improve cholesterol levels, and manage your blood pressure. Set weight loss goals with the help of your health care team. It is recommended that most people with prediabetes lose 7 percent of their current body weight. Consider following a Mediterranean diet that includes plenty of fresh fruits and vegetables, whole grains, beans, nuts, seeds, fish, lean meat, low-fat dairy, and healthy oils. This information is not intended to replace advice given to you by your health care provider. Make sure you discuss any questions you have with your health care provider. Document Released: 09/25/2015 Document Revised: 09/02/2019 Document Reviewed: 07/15/2017 [employer] Patient Education 2020 [employer]. 08/04/2022 13:29:01 Diabetes Mellitus and Nutrition, Adult Diabetes Mellitus and Nutrition, Adult When you have diabetes (diabetes mellitus), it is very important to have healthy eating habits because your blood sugar (glucose) levels are greatly affected by what you eat and drink. Eating healthyfoods in the appropriate amounts, at about the same times every day, can help you: Control your blood glucose. Lower your risk of heart disease. Improve your blood pressure. Reach or maintain a healthy weight. Every person with diabetes is different, and each person has different needs for a meal plan. Your health care provider may recommend that you work with a diet and rating specialist (dietitian) tomake a meal plan that is best for you. Your meal plan may vary depending on factors such as: The calories you need. The medicines you take. Your weight. Your blood glucose, blood pressure, and cholesterol levels. Your activity level. Other health conditions you have, such as heart or kidney disease. How do carbohydrates affect me? Carbohydrates, also called carbs, affect your blood glucose level more than any other type of food.Eating carbs naturally raises the amount of glucose in your blood. Carb counting is a method for keeping track of how many carbs you eat. Counting carbs is important to keep your blood glucose at a healthy level, especially if you use insulin or take certain oral diabetes medicines. It is important to know how many carbs you can safely have in each meal. This is different for every person. Your dietitian can help you calculate how many carbs you should have at each meal and for each snack. Foods that contain carbs include: Bread, cereal, rice, pasta, and crackers. Potatoes and corn. Peas, beans, and lentils. Milk and yogurt. Fruit and juice. Desserts, such as cakes, cookies, ice cream, and candy. How does alcohol affect me? Alcohol can cause a sudden decrease in blood glucose (hypoglycemia), especially if you use insulin or take certain oral diabetes medicines. Hypoglycemia can be a life-threatening condition. Symptoms of hypoglycemia (sleepiness, dizziness, and confusion) are similar to symptoms of having too much alcohol. If your health care provider says that alcohol is safe for you, follow these guidelines: Limit alcohol intake to no more than 1 drink per day for non women and 2 drinks per day formen. One drink equals 12 oz of beer, 5 oz of wine, or 1 oz of hard liquor. Do not drink on an empty stomach. Keep yourself hydrated with water, diet soda, or unsweetened iced tea. Keep in mind that regular soda, juice, and other mixers may contain a lot of sugar and must be counted as carbs. What are tips for following this plan? Reading food labels Start by checking the serving size on the Nutrition Facts label of packaged foods and drinks. Theamount of calories, carbs, fats, and other nutrients listed on the label is based on one serving ofthe item. Many items contain more than one serving per package. Check the total grams (g) of carbs in one serving. You can calculate the number of servings of carbs in one serving by dividing the total carbs by 15. For example, if a food has 30 g of total carbs, it would be equal to 2 servings of carbs. Check the number of grams (g) of saturated and trans fats in one serving. Choose foods that have low or no amount of these fats. Check the number of milligrams (mg) of salt (sodium) in one serving. Most people should limit totalsodium intake to less than 2,300 mg per day. Always check the nutrition information of foods labeled as low-fat or nonfat . These foods may be higher in added sugar or refined carbs and should be avoided. Talk to your dietitian to identify your daily goals for nutrients listed on the label. Shopping Avoid buying canned, premade, or processed foods. These foods tend to be high in fat, sodium, and added sugar. Shop around the outside edge of the grocery store. This includes fresh fruits and vegetables, bulk grains, fresh meats, and fresh dairy. Cooking Use low-heat cooking methods, such as baking, instead of high-heat cooking methods like deep frying. Cook using healthy oils, such as olive, canola, or sunflower oil. Avoid cooking with butter, cream, or high-fat meats. Meal planning Eat meals and snacks regularly, preferably at the same times every day. Avoid going long periods oftime without eating. Eat foods high in fiber, such as fresh fruits, vegetables, beans, and whole grains. Talk to your dietitian about how many servings of carbs you can eat at each meal. Eat 4 6 ounces (oz) of lean protein each day, such as lean meat, chicken, fish, eggs, or tofu. One oz of lean protein is equal to: ?1 oz of meat, chicken, or fish. ?1 egg. ? cup of tofu. Eat some foods each day that contain healthy fats, such as avocado, nuts, seeds, and fish. Lifestyle Check your blood glucose regularly. Exercise regularly as told by your health care provider. This may include: ?150 minutes of moderate-intensity or vigorous-intensity exercise each week. This could be brisk walking, biking, or water aerobics. ?Stretching and doing strength exercises, such as yoga or weightlifting, at least 2 times a week. Take medicines as told by your health care provider. Do not use any products that contain nicotine or tobacco, such as cigarettes and e-cigarettes. If you need help quitting, ask your health care provider. Work with a counselor or life educator to identify strategies to manage stress and any emotional and social challenges. Questions to ask a health care provider Do I need to meet with a life educator? Do I need to meet with a dietitian? What number can I call if I have questions? When are the best times to check my blood glucose? Where to find more information: [place] Diabetes Association: diabetes.org Academy of Nutrition and Dietetics: www.eatright.org National [place] of Diabetes and Digestive and Kidney Diseases (NIH): www.niddk.nih.gov Summary A healthy meal plan will help you control your blood glucose and maintain a healthy lifestyle. Working with a diet and rating specialist (dietitian) can help you make a meal plan that is bestfor you. Keep in mind that carbohydrates (carbs) and alcohol have immediate effects on your blood glucose levels. It is important to count carbs and to use alcohol carefully. This information is not intended to replace advice given to you by your health care provider. Make sure you discuss any questions you have with your health care provider. Document Released: 02/05/2006 Document Revised: 04/23/2018 Document Reviewed: 06/15/2017 [employer] Patient Education 2020 [employer]. Follow Up Care 06/25/2022 10:24:07 With:TOMEKA MITTAL FAAFP, RODRI Cervantes, PED Address: [facility] [place] [address]- When:Within 1 Month(s) [facility] 02-06-2023 Hospital Discharge instructions Patient Education 06/30/2022 12:32:20 Sinusitis, Adult, [id number] Sinusitis, Adult Sinusitis is soreness and swelling (inflammation) of your sinuses. Sinuses are hollow spaces in thebones around your face. They are located: Around your eyes. In the middle of your forehead. Behind your nose. In your cheekbones. Your sinuses and nasal passages are lined with a fluid called mucus. Mucus drains out of your sinuses. Swelling can trap mucus in your sinuses. This lets germs (bacteria, virus, or fungus) grow, which leads to infection. Most of the time, this condition is caused by a virus. What are the causes? This condition is caused by: Allergies. Asthma. Germs. Things that block your nose or sinuses. Growths in the nose (nasal polyps). Chemicals or irritants in the air. Fungus (rare). What increases the risk? You are more likely to develop this condition if: You have a weak body defense system (immune system). You do a lot of swimming or diving. You use nasal sprays too much. You smoke. What are the signs or symptoms? The main symptoms of this condition are pain and a feeling of pressure around the sinuses. Other symptoms include: Stuffy nose (congestion). Runny nose (drainage). Swelling and warmth in the sinuses. Headache. Toothache. A cough that may get worse at night. Mucus that collects in the throat or the back of the nose (postnasal drip). Being unable to smell and taste. Being very tired (fatigue). A fever. Sore throat. Bad breath. How is this diagnosed? This condition is diagnosed based on: Your symptoms. Your medical history. A physical exam. Tests to find out if your condition is short-term (acute) or long-term (chronic). Your doctor may: ?Check your nose for growths (polyps). ?Check your sinuses using a tool that has a light (endoscope). ?Check for allergies or germs. ?Do imaging tests, such as an MRI or CT scan. How is this treated? Treatment for this condition depends on the cause and whether it is short-term or long-term. If caused by a virus, your symptoms should go away on their own within 10 days. You may be given medicines to relieve symptoms. They include: ?Medicines that shrink swollen tissue in the nose. ?Medicines that treat allergies (antihistamines). ?A spray that treats swelling of the nostrils. ?Rinses that help get rid of thick mucus in your nose (nasal saline washes). If caused by bacteria, your doctor may wait to see if you will get better without treatment. You may be given antibiotic medicine if you have: ?A very bad infection. ?A weak body defense system. If caused by growths in the nose, you may need to have surgery. Follow these instructions at home: Medicines Take, use, or apply tpkh-pyc-qrsqkvw and prescription medicines only as told by your doctor. These may include nasal sprays. If you were prescribed an antibiotic medicine, take it as told by your doctor. Do not stop taking the antibiotic even if you start to feel better. Hydrate and humidify Drink enough water to keep your pee (urine) pale yellow. Use a cool mist humidifier to keep the humidity level in your home above 50%. Breathe in steam for 10 15 minutes, 3 4 times a day, or as told by your doctor. You can do this in the bathroom while a hot shower is running. Try not to spend time in cool or dry air. Rest Rest as much as you can. Sleep with your head raised (elevated). Make sure you get enough sleep each night. General instructions Put a warm, moist washcloth on your face 3 4 times a day, or as often as told by your doctor. This will help with discomfort. Wash your hands often with soap and water. If there is no soap and water, use hand trouble locater. Do not smoke. Avoid being around people who are smoking (secondhand smoke). Keep all follow-up visits as told by your doctor. This is important. Contact a doctor if: You have a fever. Your symptoms get worse. Your symptoms do not get better within 10 days. Get help right away if: You have a very bad headache. You cannot stop throwing up (vomiting). You have very bad pain or swelling around your face or eyes. You have trouble seeing. You feel confused. Your neck is stiff. You have trouble breathing. Summary Sinusitis is swelling of your sinuses. Sinuses are hollow spaces in the bones around your face. This condition is caused by tissues in your nose that become inflamed or swollen. This traps germs.These can lead to infection. If you were prescribed an antibiotic medicine, take it as told by your doctor. Do not stop taking it even if you start to feel better. Keep all follow-up visits as told by your doctor. This is important. This information is not intended to replace advice given to you by your health care provider. Make sure you discuss any questions you have with your health care provider. Document Released: 10/27/2008 Document Revised: 10/11/2018 Document Reviewed: 10/11/2018 [employer] Patient Education 2020 [employer] Follow Up Care 06/30/2022 08:05:41 With:TOMEKA MITTAL FAAFP, Andreas Arenas, RODRI, PED Address: [address], [place] [address]- When:Within 3 Month(s) [facility] 01-24-2023 Hospital Discharge instructions Patient Education 06/17/2022 20:44:51 Sinusitis, Adult Sinusitis, Adult Sinusitis is inflammation of your sinuses. Sinuses are hollow spaces in the bones around your face.Your sinuses are located: Around your eyes. In the middle of your forehead. Behind your nose. In your cheekbones. Mucus normally drains out of your sinuses. When your nasal tissues become inflamed or swollen, mucus can become trapped or blocked. This allows bacteria, viruses, and fungi to grow, which leads to infection. Most infections of the sinuses are caused by a virus. Sinusitis can develop quickly. It can last for up to 4 weeks (acute) or for more than 12 weeks (chronic). Sinusitis often develops after a cold. What are the causes? This condition is caused by anything that creates swelling in the sinuses or stops mucus from draining. This includes: Allergies. Asthma. Infection from bacteria or viruses. Deformities or blockages in your nose or sinuses. Abnormal growths in the nose (nasal polyps). Pollutants, such as chemicals or irritants in the air. Infection from fungi (rare). What increases the risk? You are more likely to develop this condition if you: Have a weak body defense system (immune system). Do a lot of swimming or diving. Overuse nasal sprays. Smoke. What are the signs or symptoms? The main symptoms of this condition are pain and a feeling of pressure around the affected sinuses.Other symptoms include: Stuffy nose or congestion. Thick drainage from your nose. Swelling and warmth over the affected sinuses. Headache. Upper toothache. A cough that may get worse at night. Extra mucus that collects in the throat or the back of the nose (postnasal drip). Decreased sense of smell and taste. Fatigue. A fever. Sore throat. Bad breath. How is this diagnosed? This condition is diagnosed based on: Your symptoms. Your medical history. A physical exam. Tests to find out if your condition is acute or chronic. This may include: ?Checking your nose for nasal polyps. ?Viewing your sinuses using a device that has a light (endoscope). ?Testing for allergies or bacteria. ?Imaging tests, such as an MRI or CT scan. In rare cases, a bone biopsy may be done to rule out more serious types of fungal sinus disease. How is this treated? Treatment for sinusitis depends on the cause and whether your condition is chronic or acute. If caused by a virus, your symptoms should go away on their own within 10 days. You may be given medicines to relieve symptoms. They include: ?Medicines that shrink swollen nasal passages (topical intranasal decongestants). ?Medicines that treat allergies (antihistamines). ?A spray that eases inflammation of the nostrils (topical intranasal corticosteroids). ?Rinses that help get rid of thick mucus in your nose (nasal saline washes). If caused by bacteria, your health care provider may recommend waiting to see if your symptoms improve. Most bacterial infections will get better without antibiotic medicine. You may be given antibiotics if you have: ?A severe infection. ?A weak immune system. If caused by narrow nasal passages or nasal polyps, you may need to have surgery. Follow these instructions at home: Medicines Take, use, or apply hjhs-kfe-wyxcxbx and prescription medicines only as told by your health care provider. These may include nasal sprays. If you were prescribed an antibiotic medicine, take it as told by your health care provider. Do notstop taking the antibiotic even if you start to feel better. Hydrate and humidify Drink enough fluid to keep your urine pale yellow. Staying hydrated will help to thin your mucus. Use a cool mist humidifier to keep the humidity level in your home above 50%. Inhale steam for 10 15 minutes, 3 4 times a day, or as told by your health care provider. You can do this in the bathroom while a hot shower is running. Limit your exposure to cool or dry air. Rest Rest as much as possible. Sleep with your head raised (elevated). Make sure you get enough sleep each night. General instructions Apply a warm, moist washcloth to your face 3 4 times a day or as told by your health care provider.This will help with discomfort. Wash your hands often with soap and water to reduce your exposure to germs. If soap and water are not available, use hand trouble locater. Do not smoke. Avoid being around people who are smoking (secondhand smoke). Keep all follow-up visits as told by your health care provider. This is important. Contact a health care provider if: You have a fever. Your symptoms get worse. Your symptoms do not improve within 10 days. Get help right away if: You have a severe headache. You have persistent vomiting. You have severe pain or swelling around your face or eyes. You have vision problems. You develop confusion. Your neck is stiff. You have trouble breathing. Summary Sinusitis is soreness and inflammation of your sinuses. Sinuses are hollow spaces in the bones around your face. This condition is caused by nasal tissues that become inflamed or swollen. The swelling traps or blocks the flow of mucus. This allows bacteria, viruses, and fungi to grow, which leads to infection. If you were prescribed an antibiotic medicine, take it as told by your health care provider. Do notstop taking the antibiotic even if you start to feel better. Keep all follow-up visits as told by your health care provider. This is important. This information is not intended to replace advice given to you by your health care provider. Make sure you discuss any questions you have with your health care provider. Document Released: 05/11/2006 Document Revised: 10/11/2018 Document Reviewed: 10/11/2018 [employer] Patient Education [employer] Follow Up Care 06/17/2022 18:56:38 With:Andreas ECKERT Address: [address] [place] [id number] Business (1) When:06/20/2022 20:44:[address] [facility]01-24-2023 Evaluation + Plan noteExtracted from: Title:ED Note Author:Luis F Dickens PA-C Conor e:06/17/22 Other specified bacterial ag ents as the cause of diseases classified elsewhere (B96.89: Other specified bacterial agents as the cause of diseases classified elsewhere) Sinusitis, bacterial (J32.9: Chronic sinusitis, unspecified) Orders: amoxicillin-clavulanate, = 1 tab(s), Oral, q12hr, X 5 day(s), # 10 tab(s), Refills(s) 0, Pharmacy: [facility]/pharmacy #[id number], 165, cm, 06/17/22 19:01:00 EST, Height/Length Dosing, 125, kg, 06/17/22 19:01:00 EST, Weight Dosing amoxicillin-clavulanate, 1 tab(s), Tab, Oral, Once, Stop date 06/17/22 20:40:00 EST, STAT, Start date 06/17/22 20:40:00 EST Future Appointments Appointment Date:07/09/2022 03:00:00 PM Scheduled Provider:Andrew Fuller MD Location:[facility] [place] Appointment Type:Pain Management - Follow Up ([facility]) Appointment Date:05/04/2023 10:30:00 AM Scheduled Provider:Daja Ho Location:[facility]ONCOLOGY Appointment Type:ONC Office Visit 30 ([facility]) Future Scheduled Tests Laboratory* HgbA1c 12/12/21 * UA With Cult Reflex 06/05/22 * Glucose Random 12/12/21 * CBC w/ Auto Diff 08/29/22 * CBC w/ Auto Diff 12/29/22 * CBC w/ Auto Diff 04/30/23 * Comprehensive Metabolic Panel 08/29/22 * Comprehensive Metabolic Panel 12/29/22 * Comprehensive Metabolic Panel 04/30/23 * Ferritin 08/29/22 * Ferritin 12/29/22 * Ferritin 04/30/23 * Folate Level 08/29/22 * Folate Level 12/29/22 * Folate Level 04/30/23 * Iron Level 08/29/22 * Iron Level 12/29/22 * Iron Level 04/30/23 * Iron Percent Saturation 08/29/22 * Iron Percent Saturation 12/29/22 * Iron Percent Saturation 04/30/23 * Vitamin B12 Level 08/29/22 * Vitamin B12 Level 12/29/22 * Vitamin B12 Level 04/30/23 Radiology* NM Myocardial Spect Part 2 12/23/[address] [facility]12-27-2022 Hospital Discharge instructions Patient Education 05/20/2022 18:38:11 Viral Conjunctivitis, Adult Viral Conjunctivitis, Adult Viral conjunctivitis is an inflammation of the clear membrane that covers the white part of your eye and the inner surface of your eyelid (conjunctiva). The inflammation is caused by a viral infection. The blood vessels in the conjunctiva become inflamed, causing the eye to become red or pink, and often itchy. Viral conjunctivitis can be easily passed from one person to another (is contagious). This condition is often called pink eye. What are the causes? This condition is caused by a virus. A virus is a type of contagious germ. It can be spread by touching objects that have been contaminated with the virus, such as doorknobs or towels. It can also bepassed through droplets, such as from coughing or sneezing. What are the signs or symptoms? Symptoms of this condition include: Eye redness. Tearing or watery eyes. Itchy and irritated eyes. Burning feeling in the eyes. Clear drainage from the eye. Swollen eyelids. A gritty feeling in the eye. Light sensitivity. This condition often occurs with other symptoms, such as a fever, nausea, or a rash. How is this diagnosed? This condition is diagnosed with a medical history and physical exam. If you have discharge from your eye, the discharge may be tested to rule out other causes of conjunctivitis. How is this treated? Viral conjunctivitis does not respond to medicines that kill bacteria (antibiotics). Treatment for viral conjunctivitis is directed at stopping a bacterial infection from developing in addition to the viral infection. Treatment also aims to relieve your symptoms, such as itching. This may be done with antihistamine drops or other eye medicines. Rarely, steroid eye drops or antiviral medicines maybe prescribed. Follow these instructions at home: Medicines Take or apply twcn-qrm-dwewtul and prescription medicines only as told by your health care provider. Be very careful to avoid touching the edge of the eyelid with the eye drop bottle or ointment tube when applying medicines to the affected eye. Being careful this way will stop you from spreading theinfection to the other eye or to other people. Eye care Avoid touching or rubbing your eyes. Apply a warm, wet, clean washcloth to your eye for 10 20 minutes, 3 4 times per day or as told by your health care provider. If you wear contact lenses, do not wear them until the inflammation is gone and your health care provider says it is safe to wear them again. Ask your health care provider how to sterilize or replaceyour contact lenses before using them again. Wear glasses until you can resume wearing contacts. Avoid wearing eye makeup until the inflammation is gone. Throw away any old eye cosmetics that may be contaminated. Gently wipe away any drainage from your eye with a warm, wet washcloth or a cotton ball. General instructions Change or wash your pillowcase every day or as told by your health care provider. Do not share towels, pillowcases, washcloths, eye makeup, makeup brushes, contact lenses, or glasses. This may spread the infection. Wash your hands often with soap and water. Use paper towels to dry your hands. If soap and water are not available, use hand trouble locater. Try to avoid contact with other people for one week or as told by your health care provider. Contact a health care provider if: Your symptoms do not improve with treatment or they get worse. You have increased pain. Your vision becomes blurry. You have a fever. You have facial pain, redness, or swelling. You have yellow or green drainage coming from your eye. You have new symptoms. This information is not intended to replace advice given to you by your health care provider. Make sure you discuss any questions you have with your health care provider. Document Released: 08/01/2003 Document Revised: 08/30/2019 Document Reviewed: 11/25/2016 [employer] Patient Education 2020 [employer]. 05/20/2022 18:38:11 Acute Bronchitis, Adult Acute Bronchitis, Adult Acute bronchitis is sudden (acute) swelling of the air tubes (bronchi) in the lungs. Acute bronchitis causes these tubes to fill with mucus, which can make it hard to breathe. It can also cause coughing or wheezing. In adults, acute bronchitis usually goes away within 2 weeks. A cough caused by bronchitis may lastup to 3 weeks. Smoking, allergies, and asthma can make the condition worse. Repeated episodes of bronchitis may cause further lung problems, such as chronic obstructive pulmonary disease (COPD). What are the causes? This condition can be caused by germs and by substances that irritate the lungs, including: Cold and flu viruses. This condition is most often caused by the same virus that causes a cold. Bacteria. Exposure to tobacco smoke, dust, fumes, and air pollution. What increases the risk? This condition is more likely to develop in people who: Have close contact with someone with acute bronchitis. Are exposed to lung irritants, such as tobacco smoke, dust, fumes, and vapors. Have a weak immune system. Have a respiratory condition such as asthma. What are the signs or symptoms? Symptoms of this condition include: A cough. Coughing up clear, yellow, or green mucus. Wheezing. Chest congestion. Shortness of breath. A fever. Body aches. Chills. A sore throat. How is this diagnosed? This condition is usually diagnosed with a physical exam. During the exam, your health care provider may order tests, such as chest X-rays, to rule out other conditions. He or she may also: Test a sample of your mucus for bacterial infection. Check the level of oxygen in your blood. This is done to check for pneumonia. Do a chest X-ray or lung function testing to rule out pneumonia and other conditions. Perform blood tests. Your health care provider will also ask about your symptoms and medical history. How is this treated? Most cases of acute bronchitis clear up over time without treatment. Your health care provider may recommend: Drinking more fluids. Drinking more makes your mucus thinner, which may make it easier to breathe. Taking a medicine for a fever or cough. Taking an antibiotic medicine. Using an inhaler to help improve shortness of breath and to control a cough. Using a cool mist vaporizer or humidifier to make it easier to breathe. Follow these instructions at home: Medicines Take qhxu-geb-hutmlxi and prescription medicines only as told by your health care provider. If you were prescribed an antibiotic, take it as told by your health care provider. Do not stop taking the antibiotic even if you start to feel better. General instructions Get plenty of rest. Drink enough fluids to keep your urine pale yellow. Avoid smoking and secondhand smoke. Exposure to cigarette smoke or irritating chemicals will make bronchitis worse. If you smoke and you need help quitting, ask your health care provider. Quitting smoking will help your lungs heal faster. Use an inhaler, cool mist vaporizer, or humidifier as told by your health care provider. Keep all follow-up visits as told by your health care provider. This is important. How is this prevented? To lower your risk of getting this condition again: Wash your hands often with soap and water. If soap and water are not available, use hand trouble locater. Avoid contact with people who have cold symptoms. Try not to touch your hands to your mouth, nose, or eyes. Make sure to get the flu shot every year. Contact a health care provider if: Your symptoms do not improve in 2 weeks of treatment. Get help right away if: You cough up blood. You have chest pain. You have severe shortness of breath. You become dehydrated. You faint or keep feeling like you are going to faint. You keep vomiting. You have a severe headache. Your fever or chills gets worse. This information is not intended to replace advice given to you by your health care provider. Make sure you discuss any questions you have with your health care provider. Document Released: 06/18/2005 Document Revised: 03/24/2019 Document Reviewed: 10/29/2016 [employer] Patient Education 2020 [employer]. 05/20/2022 18:38:11 Cellulitis, Adult, Knrh-lx-Mfpm Cellulitis, Adult Cellulitis is a skin infection. The infected area is often warm, red, swollen, and sore. It occurs most often in the arms and lower legs. It is very important to get treated for this condition. What are the causes? This condition is caused by bacteria. The bacteria enter through a break in the skin, such as a cut, burn, insect bite, open sore, or crack. What increases the risk? This condition is more likely to occur in people who: Have a weak body defense system (immune system). Have open cuts, duran, bites, or scrapes on the skin. Are older than 60 years of age. Have a blood sugar problem (diabetes). Have a long-lasting (chronic) liver disease (cirrhosis) or kidney disease. Are very overweight (obese). Have a skin problem, such as: ?Itchy rash (eczema). ?Slow movement of blood in the veins (venous stasis). ?Fluid buildup below the skin (edema). Have been treated with high-energy rays (radiation). Use IV drugs. What are the signs or symptoms? Symptoms of this condition include: Skin that is: ?Red. ?Streaking. ?Spotting. ?Swollen. ?Sore or painful when you touch it. ?Warm. A fever. Chills. Blisters. How is this diagnosed? This condition is diagnosed based on: Medical history. Physical exam. Blood tests. Imaging tests. How is this treated? Treatment for this condition may include: Medicines to treat infections or allergies. Home care, such as: ?Rest. ?Placing cold or warm cloths (compresses) on the skin. Hospital care, if the condition is very bad. Follow these instructions at home: Medicines Take xxam-dqv-tuscxex and prescription medicines only as told by your doctor. If you were prescribed an antibiotic medicine, take it as told by your doctor. Do not stop taking it even if you start to feel better. General instructions Drink enough fluid to keep your pee (urine) pale yellow. Do not touch or rub the infected area. Raise (elevate) the infected area above the level of your heart while you are sitting or lying down. Place cold or warm cloths on the area as told by your doctor. Keep all follow-up visits as told by your doctor. This is important. Contact a doctor if: You have a fever. You do not start to get better after 1 2 days of treatment. Your bone or joint under the infected area starts to hurt after the skin has healed. Your infection comes back. This can happen in the same area or another area. You have a swollen bump in the area. You have new symptoms. You feel ill and have muscle aches and pains. Get help right away if: Your symptoms get worse. You feel very sleepy. You throw up (vomit) or have watery poop (diarrhea) for a long time. You see red streaks coming from the area. Your red area gets larger. Your red area turns dark in color. These symptoms may represent a serious problem that is an emergency. Do not wait to see if the symptoms will go away. Get medical help right away. Call your local emergency services (911 in the [place] Do not drive yourself to the hospital. Summary Cellulitis is a skin infection. The area is often warm, red, swollen, and sore. This condition is treated with medicines, rest, and cold and warm cloths. Take all medicines only as told by your doctor. Tell your doctor if symptoms do not start to get better after 1 2 days of treatment. This information is not intended to replace advice given to you by your health care provider. Make sure you discuss any questions you have with your health care provider. Document Released: 10/27/2008 Document Revised: 09/30/2018 Document Reviewed: 09/30/2018 [employer] Patient Education 2020 [employer]. Follow Up Care 05/20/2022 18:01:26 With:Follow-up with your eye doctor Address:Unknown When:05/23/2022 18:30:47 With:Andreas ECKERT Address: [address], [place] [address]- Business (1) When:Within 3 Day(s) [facility]12-27-2022 Evaluation + Plan noteExtracted from: Title:ED Note Author:Jayson Duarte DO Date: Bronchitis (J40: Bronchitis, not specified as acute or chronic) Cellulitis of back (L03.312: Cellulitis of back [any part except buttock]) Conjunctivitis (H10.9: Unspecified conjunctivitis) Orders: albuterol, 2 puff(s), Inhalation, q6hr for 7 day(s), 6.7 gm, Refill(s) 0, [id number], 165, cm, 05/20/22 18:06:00 EST, Height/Length Dosing, 124, kg, 05/20/22 18:06:00 EST, Weight Dosing brompheniramine/dextromethorphan/PSE, 5 mL, Oral, QID for cold symptoms, 200 mL, Refill(s) 0, [id number], 165, cm, 05/20/22 18:06:00 EST, Height/Length Dosing, 124, kg, 05/20/22 18:06:00 EST, Weight Dosing doxycycline, 100 mg = 1 tab(s), Oral, BID, X 7 day(s), # 14 tab(s), Refills(s) 0, Pharmacy: [facility] #[id number], 165, cm, 05/20/22 18:06:00 EST, Height/Length Dosing, 124, kg, 05/20/22 18:06:00 EST, Weight Dosing fluorescein ophthalmic, 1 mg, 1 EA, Test, OPTH, Once, Stop date 05/20/22 18:16:00 EST, STAT, Start date 05/20/22 18:16:00 EST ketotifen ophthalmic, 1 drop(s), Eye-Both, q8hr, 7.5 mL, Refill(s) 0, [id number], 165, cm, 05/20/22 18:06:00 EST, Height/Length Dosing, 124, kg, 05/20/22 18:06:00 EST, Weight Dosing mupirocin topical, 1 justine, Topical, TID for 7 day(s), 30 gram, Refill(s) 0, [id number], 165, cm, 05/20/22 18:06:00 EST, Height/Length Dosing, 124, kg, 05/20/22 18:06:00 EST, Weight Dosing polymyxin B-trimethoprim ophthalmic, 1 drop(s), OPTH, q3hr for 7 day(s), 10 mL, Refill(s) 0, [id number], 165, cm, 05/20/22 18:06:00 EST, Height/Length Dosing, 124, kg, 05/20/22 18:06:00 EST, Weight Dosing proparacaine ophthalmic, 1 drop(s), Soln-Opth, OPTH, Once, Stop date 05/20/22 18:16:00 EST, STAT, Start date 05/20/22 18:16:00 EST Future Appointments Appointment Date:05/04/2023 10:30:00 AM Scheduled Provider:Daja Ho Location:[facility]ONCOLOGY Appointment Type:ONC Office Visit 30 ([facility]) Future Scheduled Tests Laboratory* HgbA1c 12/12/21 * Glucose Random 12/12/21 * CBC w/ Auto Diff 08/29/22 * CBC w/ Auto Diff 12/29/22 * CBC w/ Auto Diff 04/30/23 * Comprehensive Metabolic Panel 08/29/22 * Comprehensive Metabolic Panel 12/29/22 * Comprehensive Metabolic Panel 04/30/23 * Ferritin 08/29/22 * Ferritin 12/29/22 * Ferritin 04/30/23 * Folate Level 08/29/22 * Folate Level 12/29/22 * Folate Level 04/30/23 * Iron Level 08/29/22 * Iron Level 12/29/22 * Iron Level 04/30/23 * Iron Percent Saturation 08/29/22 * Iron Percent Saturation 12/29/22 * Iron Percent Saturation 04/30/23 * Vitamin B12 Level 08/29/22 * Vitamin B12 Level 12/29/22 * Vitamin B12 Level 04/30/23 Radiology* NM Myocardial Spect Part 2 12/23/[address] [facility]12-07-2022 Hospital Discharge instructions Follow Up Care 04/30/2022 09:58:20 With:Daja Marion Address: [facility] [place] [phone]- [phone] Business (1) When: Unknown Comments:IV Venofer 300mg x 3cbc, cmp, iron studies in 3mofollow-up in 3mo [facility]07-12-2022 Hospital Discharge instructions Patient Education 12/03/2021 12:04:01 Chest Wall Pain, Tddj-hy-Weyg Chest Wall Pain Chest wall pain is pain in or around the bones and muscles of your chest. Chest wall pain may be caused by: An injury. Coughing a lot. Using your chest and arm muscles too much. Sometimes, the cause may not be known. This pain may take a few weeks or longer to get better. Follow these instructions at home: Managing pain, stiffness, and swelling If told, put ice on the painful area: Put ice in a plastic bag. Place a towel between your skin and the bag. Leave the ice on for 20 minutes, 2 3 times a day. Activity Rest as told by your doctor. Avoid doing things that cause pain. This includes lifting heavy items. Ask your doctor what activities are safe for you. General instructions Take hwkd-laa-lallajg and prescription medicines only as told by your doctor. Do not use any products that contain nicotine or tobacco, such as cigarettes, e- cigarettes, and chewing tobacco. If you need help quitting, ask your doctor. Keep all follow-up visits as told by your doctor. This is important. Contact a doctor if: You have a fever. Your chest pain gets worse. You have new symptoms. Get help right away if: You feel sick to your stomach (nauseous) or you throw up (vomit). You feel sweaty or light-headed. You have a cough with mucus from your lungs (sputum) or you cough up blood. You are short of breath. These symptoms may be an emergency. Do not wait to see if the symptoms will go away. Get medical help right away. Call your local emergency services (911 in the [place] Do not drive yourself to the hospital. Summary Chest wall pain is pain in or around the bones and muscles of your chest. It may be treated with ice, rest, and medicines. Your condition may also get better if you avoid doing things that cause pain. Contact a doctor if you have a fever, chest pain that gets worse, or new symptoms. Get help right away if you feel light-headed or you get short of breath. These symptoms may be an emergency. This information is not intended to replace advice given to you by your health care provider. Make sure you discuss any questions you have with your health care provider. Document Released: 10/27/2008 Document Revised: 11/11/2018 Document Reviewed: 11/11/2018 App Press Patient Education 2020 [employer]. Follow Up Care 11/29/2021 15:15:07 With:TOMEKA MITTAL FAAFP, RODRI Cervantes, PED Address: [place] [address]- When:Within 3 Month(s) [facility] 07-11-2022 Hospital Discharge instructions Patient Education 12/02/2021 12:41:20 Dizziness Dizziness Dizziness is a common problem. It is a feeling of unsteadiness or light- headedness. You may feel like you are about to faint. Dizziness can lead to injury if you stumble or fall. Anyone can become dizzy, but dizziness is more common in older adults. This condition can be caused by a number of things, including medicines, dehydration, or illness. Follow these instructions at home: Eating and drinking Drink enough fluid to keep your urine clear or pale yellow. This helps to keep you from becoming dehydrated. Try to drink more clear fluids, such as water. Do not drink alcohol. Limit your caffeine intake if told to do so by your health care provider. Check ingredients and nutrition facts to see if a food or beverage contains caffeine. Limit your salt (sodium) intake if told to do so by your health care provider. Check ingredients and nutrition facts to see if a food or beverage contains sodium. Activity Avoid making quick movements. ?Rise slowly from chairs and steady yourself until you feel okay. ?In the morning, first sit up on the side of the bed. When you feel okay, stand slowly while you hold onto something until you know that your balance is fine. If you need to pacs administrator one place for a long time, move your legs often. Tighten and relax the muscles in your legs while you are standing. Do not drive or use heavy machinery if you feel dizzy. Avoid bending down if you feel dizzy. Place items in your home so that they are easy for you to reach without leaning over. Lifestyle Do not use any products that contain nicotine or tobacco, such as cigarettes and e-cigarettes. If you need help quitting, ask your health care provider. Try to reduce your stress level by using methods such as yoga or meditation. Talk with your health care provider if you need help to manage your stress. General instructions Watch your dizziness for any changes. Take hbqn-cnf-lxgriwc and prescription medicines only as told by your health care provider. Talk with your health care provider if you think that your dizziness is caused by a medicine that you are taking. Tell a friend or a family member that you are feeling dizzy. If he or she notices any changes in your behavior, have this person call your health care provider. Keep all follow-up visits as told by your health care provider. This is important. Contact a health care provider if: Your dizziness does not go away. Your dizziness or light-headedness gets worse. You feel nauseous. You have reduced hearing. You have new symptoms. You are unsteady on your feet or you feel like the room is spinning. Get help right away if: You vomit or have diarrhea and are unable to eat or drink anything. You have problems talking, walking, swallowing, or using your arms, hands, or legs. You feel generally weak. You are not thinking clearly or you have trouble forming sentences. It may take a friend or family member to notice this. You have chest pain, abdominal pain, shortness of breath, or sweating. Your vision changes. You have any bleeding. You have a severe headache. You have neck pain or a stiff neck. You have a fever. These symptoms may represent a serious problem that is an emergency. Do not wait to see if the symptoms will go away. Get medical help right away. Call your local emergency services (911 in the [place] Do not drive yourself to the hospital. Summary Dizziness is a feeling of unsteadiness or light-headedness. This condition can be caused by a number of things, including medicines, dehydration, or illness. Anyone can become dizzy, but dizziness is more common in older adults. Drink enough fluid to keep your urine clear or pale yellow. Do not drink alcohol. Avoid making quick movements if you feel dizzy. Monitor your dizziness for any changes. This information is not intended to replace advice given to you by your health care provider. Make sure you discuss any questions you have with your health care provider. Document Released: 11/04/2001 Document Revised: 05/14/2018 Document Reviewed: 06/13/2017 App [employer] Patient Education 2020 [employer]. 12/02/2021 12:41:20 Nonspecific Chest Pain, Adult Nonspecific Chest Pain, Adult Chest pain can be caused by many different conditions. It can be caused by a condition that is life-threatening and requires treatment right away. It can also be caused by something that is not life-threatening. If you have chest pain, it can be hard to know the difference, so it is important to get help right away to make sure that you do not have a serious condition. Some life-threatening causes of chest pain include: Heart attack. A tear in the body's main blood vessel (aortic dissection). Inflammation around your heart (pericarditis). A problem in the lungs, such as a blood clot (pulmonary embolism) or a collapsed lung (pneumothorax). Some non life-threatening causes of chest pain include: Heartburn. Anxiety or stress. Damage to the bones, muscles, and cartilage that make up your chest wall. Pneumonia or bronchitis. Shingles infection (varicella-zoster virus). Chest pain can feel like: Pain or discomfort on the surface of your chest or deep in your chest. Crushing, pressure, aching, or squeezing pain. Burning or tingling. Dull or sharp pain that is worse when you move, cough, or take a deep breath. Pain or discomfort that is also felt in your back, neck, jaw, shoulder, or arm, or pain that spreads to any of these areas. Your chest pain may come and go. It may also be constant. Your health care provider will do lab tests and other studies to find the cause of your pain. Treatment will depend on the cause of your chest pain. Follow these instructions at home: Medicines Take ggzp-ehy-ekfnaci and prescription medicines only as told by your health care provider. If you were prescribed an antibiotic, take it as told by your health care provider. Do not stop taking the antibiotic even if you start to feel better. Lifestyle Rest as directed by your health care provider. Do not use any products that contain nicotine or tobacco, such as cigarettes and e-cigarettes. If you need help quitting, ask your health care provider. Do not drink alcohol. Make healthy lifestyle choices as recommended. These may include: ?Getting regular exercise. Ask your health care provider to suggest some activities that are safe for you. ?Eating a heart-healthy diet. This includes plenty of fresh fruits and vegetables, whole grains, low-fat (lean) protein, and low-fat dairy products. A dietitian can help you find healthy eating options. ?Maintaining a healthy weight. ?Managing any other health conditions you have, such as high blood pressure (hypertension) or diabetes. ?Reducing stress, such as with yoga or relaxation techniques. General instructions Pay attention to any changes in your symptoms. Tell your health care provider about them or any newsymptoms. Avoid any activities that cause chest pain. Keep all follow-up visits as told by your health care provider. This is important. This includes visits for any further testing if your chest pain does not go away. Contact a health care provider if: Your chest pain does not go away. You feel depressed. You have a fever. Get help right away if: Your chest pain gets worse. You have a cough that gets worse, or you cough up blood. You have severe pain in your abdomen. You faint. You have sudden, unexplained chest discomfort. You have sudden, unexplained discomfort in your arms, back, neck, or jaw. You have shortness of breath at any time. You suddenly start to sweat, or your skin gets clammy. You feel nausea or you vomit. You suddenly feel lightheaded or dizzy. You have severe weakness, or unexplained weakness or fatigue. Your heart begins to beat quickly, or it feels like it is skipping beats. These symptoms may represent a serious problem that is an emergency. Do not wait to see if the symptoms will go away. Get medical help right away. Call your local emergency services (911 in the [place] Do not drive yourself to the hospital. Summary Chest pain can be caused by a condition that is serious and requires urgent treatment. It may also be caused by something that is not life-threatening. If you have chest pain, it is very important to see your health care provider. Your health care provider may do lab tests and other studies to find the cause of your pain. Follow your health care provider's instructions on taking medicines, making lifestyle changes, and getting emergency treatment if symptoms become worse. Keep all follow-up visits as told by your health care provider. This includes visits for any further testing if your chest pain does not go away. This information is not intended to replace advice given to you by your health care provider. Make sure you discuss any questions you have with your health care provider. Document Released: 02/18/2006 Document Revised: 11/11/2018 Document Reviewed: 11/11/2018 App [employer] Patient Education 2020 [employer]. Follow Up Care 12/02/2021 08:48:14 With:Andreas ECKERT Address: [address], [place] [address]- Business (1) When:12/03/2021 12:33:54 Comments:Return to the emergency room if your chest pain recurs, dizziness recurs or any new symptoms [facility]07-11-2022 Evaluation + Plan noteExtracted from: Title:ED Note Author:Gerard Kaur, Deepti Baltazar te:12/02/21 1. Chest pain (R07.9: Chest pain, unspecified) 2. Dizziness (R42: Dizziness and giddiness) 3. Left against medical advice (Z53.29: Procedure and treatment not carried out because of patient's decision for other reasons) Orders: acetaminophen-hydrocodone, 1 tab(s), Oral, q6hr as needed for pain, 7 tab(s), Refill(s) 0, [id number], 165, cm, 08/29/21 19:07:00 EDT, Height/Length Dosing, 128, kg, 08/29/21 19:07:00 EDT, Weight Dosing aspirin, 162 mg = 2 tab(s), Tab-Chew, Oral, Once, Stop date 12/02/21 9:06:00 EDT, STAT, Start date 12/02/21 9:06:00 EDT, 12/02/21 9:06:00 EDT Automated Diff B-Type Natriuretic Peptide Basic Metabolic Panel CBC w/ Auto Diff ED Cardiac Monitoring eGFR Magnesium Level Oxygen Saturation Oxygen Therapy PT & PTT Saline Lock Insert Troponin 0 Hr. Troponin 3 Hr. Troponin 6 Hr. Troponin 9 Hr. XR Chest Single View Future Appointments Appointment Date:12/03/2021 10:20:00 AM Scheduled Provider:Andreas ECKERT DO, FAAFP Location:[facility] Appointment Type: ER/Hospital Follow Up Appointment Date:12/12/2021 01:00:00 PM Scheduled Provider:Andrew Fuller MD Location:[facility] [place] Appointment Type:Pain Management - Follow Up ([facility]) Appointment Date:04/30/2022 09:00:00 AM Scheduled Provider:Hussain Varner DO Location:.ONCOLOGY Appointment Type:ONC Office Visit 15 (FT) Future Scheduled Tests Laboratory* HgbA1c 12/26/20 * HgbA1c 03/28/21 * CBC w/ Auto Diff 08/29/21 * CBC w/ Auto Diff 12/29/21 * CBC w/ Auto Diff 04/30/22 * Comprehensive Metabolic Panel 08/29/21 * Comprehensive Metabolic Panel 12/29/21 * Comprehensive Metabolic Panel 04/30/22 * Comprehensive Metabolic Panel 05/03/21 * Ferritin 08/29/21 * Ferritin 12/29/21 * Ferritin 04/30/22 * Ferritin 05/03/21 * Iron Level 08/29/21 * Iron Level 12/29/21 * Iron Level 04/30/22 * Iron Level 05/03/21 * Iron Percent Saturation 08/29/21 * Iron Percent Saturation 12/29/21 * Iron Percent Saturation 04/30/22 * Iron Percent Saturation 05/03/[address] [facility]07-08-2022 Hospital Discharge instructions Patient Education 11/28/2021 22:07:29 Impetigo, Adult Impetigo, Adult Impetigo is an infection of the skin. It commonly occurs in young children, but it can also occur in adults. The infection causes itchy blisters and sores that produce brownish-yellow fluid. As the fluid dries, it forms a thick, honey- colored crust. These skin changes usually occur on the face, butthey can also affect other areas of the body. Impetigo usually goes away in 7 10 days with treatment. What are the causes? This condition is caused by two types of bacteria. It may be caused by staphylococci or streptococci bacteria. These bacteria cause impetigo when they get under the surface of the skin. This often happens after some damage to the skin, such as: Cuts, scrapes, or scratches. Rashes. Insect bites, especially when you scratch the area of a bite. Chickenpox or other illnesses that cause open skin sores. Nail biting or chewing. Impetigo can spread easily from one person to another (is contagious). It may be spread through close skin contact or by sharing towels, clothing, or other items that an infected person has touched. What increases the risk? The following factors may make you more likely to develop this condition: Playing sports that include vjri-ii-cxcb contact with others. Having a skin condition with open sores, such as chickenpox. Having diabetes. Having a weak body defense system (immune system). Having many skin cuts or scrapes. Living in an area that has high humidity levels. Having poor hygiene. Having high levels of staphylococci in your nose. What are the signs or symptoms? The main symptom of this condition is small blisters, often on the face around the mouth and nose. In time, the blisters break open and turn into tiny sores (lesions) with a yellow crust. In some cases, the blisters cause itching or burning. With scratching, irritation, or lack of treatment, these small lesions may get larger. Other possible symptoms include: Larger blisters. Pus. Swollen lymph glands. Scratching the affected area can cause impetigo to spread to other parts of the body. The bacteria can get under the fingernails and spread when you touch another area of your skin. How is this diagnosed? This condition is usually diagnosed during a physical exam. A skin sample or a sample of fluid froma blister may be taken for lab tests that involve growing bacteria (culture test). Lab tests can help to confirm the diagnosis or help to determine the best treatment. How is this treated? Treatment for this condition depends on the severity of the condition: Mild impetigo can be treated with prescription antibiotic cream. Oral antibiotic medicine may be used in more severe cases. Medicines that reduce itchiness (antihistamines)may also be used. Follow these instructions at home: Medicines Take teyz-ywr-rholdim and prescription medicines only as told by your health care provider. Apply or take your antibiotic as told by your health care provider. Do not stop using the antibiotic even if your condition improves. General instructions To help prevent impetigo from spreading to other body areas: ?Keep your fingernails short and clean. ?Do not scratch the blisters or sores. ?Cover infected areas, if necessary, to keep from scratching. ?Wash your hands often with soap and warm water. Before applying antibiotic cream or ointment, you should: ?Gently wash the infected areas with antibacterial soap and warm water. ?Soak crusted areas in warm, soapy water using antibacterial soap. ?Gently rub the areas to remove crusts. Do not scrub. Do not share towels. Wash your clothing and bedsheets in warm water that is 140 F (60 C) or warmer. Stay home until you have used an antibiotic cream for 48 hours (2 days) or an oral antibiotic medicine for 24 hours (1 day). You should only return to work and activities with other people if your skin shows significant improvement. ?You may return to contact sports after you have used antibiotic medicine for 72 hours (3 days). Keep all follow-up visits as told by your health care provider. This is important. How is this prevented? Wash your hands often with soap and warm water. Do not share towels, washcloths, clothing, bedding, or razors. Keep your fingernails short. Keep any cuts, scrapes, bug bites, or rashes clean and covered. Use insect repellent to prevent bug bites. Contact a health care provider if: You develop more blisters or sores even with treatment. Other family members get sores. Your skin sores are not improving after 72 hours (3 days) of treatment. You have a fever. Get help right away if: You see spreading redness or swelling of the skin around your sores. You see red streaks coming from your sores. You develop a sore throat. The area around your rash becomes warm, red, or tender to the touch. You have dark, reddish-brown urine. You do not urinate often or you urinate small amounts. You are very tired (lethargic). You have swelling in the face, hands, or feet. Summary Impetigo is a skin infection that causes itchy blisters and sores that produce brownish-yellow fluid. As the fluid dries, it forms a crust. This condition is caused by staphylococci or streptococci bacteria. These bacteria cause impetigo when they get under the surface of the skin, such as through cuts, rashes, bug bites, or open sores. Treatment for this condition may include antibiotic ointment or oral antibiotics. To help prevent impetigo from spreading to other body areas, make sure you keep your fingernails short, avoid scratching, cover any blisters, and wash your hands often. If you have impetigo, stay home until you have used an antibiotic cream for 48 hours (2 days) or anoral antibiotic medicine for 24 hours (1 day). You should only return to work and activities with other people if your skin shows significant improvement. This information is not intended to replace advice given to you by your health care provider. Make sure you discuss any questions you have with your health care provider. Document Released: 06/01/2015 Document Revised: 06/21/2019 Document Reviewed: 06/02/2017 [employer] Patient Education 2020 [employer]. 11/28/2021 22:07:29 Shingles, Jsep-om-Vhhp Shingles Shingles is an infection. It gives you a painful skin rash and blisters that have fluid in them. Shingles is caused by the same germ (virus) that causes chickenpox. Shingles only happens in people who: Have had chickenpox. Have been given a shot of medicine (vaccine) to protect against chickenpox. Shingles is rare in this group. The first symptoms of shingles may be itching, tingling, or pain in an area on your skin. A rash will show on your skin a few days or weeks later. The rash is likely to be on one side of your body. The rash usually has a shape like a belt or a band. Over time, the rash turns into fluid-filled blisters. The blisters will break open, change into scabs, and dry up. Medicines may: Help with pain and itching. Help you get better sooner. Help to prevent long-term problems. Follow these instructions at home: Medicines Take tmnn-wvy-qgwcqxi and prescription medicines only as told by your doctor. Put on an anti-itch cream or numbing cream where you have a rash, blisters, or scabs. Do this as told by your doctor. Helping with itching and discomfort Put cold, wet cloths (cold compresses) on the area of the rash or blisters as told by your doctor. Cool baths can help you feel better. Try adding baking soda or dry oatmeal to the water to lessen itching. Do not bathe in hot water. Blister and rash care Keep your rash covered with a loose bandage (dressing). Wear loose clothing that does not rub on your rash. Keep your rash and blisters clean. To do this, wash the area with mild soap and cool water as told by your doctor. Check your rash every day for signs of infection. Check for: ?More redness, swelling, or pain. ?Fluid or blood. ?Warmth. ?Pus or a bad smell. Do not scratch your rash. Do not pick at your blisters. To help you to not scratch: ?Keep your fingernails clean and cut short. ?Wear gloves or mittens when you sleep, if scratching is a problem. General instructions Rest as told by your doctor. Keep all follow-up visits as told by your doctor. This is important. Wash your hands often with soap and water. If soap and water are not available, use hand trouble locater.Doing this lowers your chance of getting a skin infection caused by germs (bacteria). Your infection can cause chickenpox in people who have never had chickenpox or never got a shot of chickenpox vaccine. If you have blisters that did not change into scabs yet, try not to touch other people or be around other people, especially: ?Babies. ? women. ?Children who have areas of red, itchy, or rough skin (eczema). ?Very old people who have transplants. ?People who have a long-term (chronic) sickness, like cancer or AIDS. Contact a doctor if: Your pain does not get better with medicine. Your pain does not get better after the rash heals. You have any signs of infection in the rash area. These signs include: ?More redness, swelling, or pain around the rash. ?Fluid or blood coming from the rash. ?The rash area feeling warm to the touch. ?Pus or a bad smell coming from the rash. Get help right away if: The rash is on your face or nose. You have pain in your face or pain by your eye. You lose feeling on one side of your face. You have trouble seeing. You have ear pain, or you have ringing in your ear. You have a loss of taste. Your condition gets worse. Summary Shingles gives you a painful skin rash and blisters that have fluid in them. Shingles is an infection. It is caused by the same germ (virus) that causes chickenpox. Keep your rash covered with a loose bandage (dressing). Wear loose clothing that does not rub on your rash. If you have blisters that did not change into scabs yet, try not to touch other people or be aroundpeople. This information is not intended to replace advice given to you by your health care provider. Make sure you discuss any questions you have with your health care provider. Document Released: 10/27/2008 Document Revised: 09/02/2019 Document Reviewed: 01/13/2018 App Press Patient Education 2019 Interior Define Follow Up Care 11/28/2021 18:25:06 With:Andreas ECKERT Address: [address], [place] [address]- Business (1) When:12/01/2021 21:40:[address] [facility]04-08-2022 Hospital Discharge instructions Patient Education 08/29/2021 22:37:40 Flank Pain, Adult Flank Pain, Adult Flank pain is pain that is located on the side of the body between the upper abdomen and the back. This area is called the flank. The pain may occur over a short period of time (acute), or it may be long-term or recurring (chronic). It may be mild or severe. Flank pain can be caused by many things,including: Muscle soreness or injury. Kidney stones or kidney disease. Stress. A disease of the spine (vertebral disk disease). A lung infection (pneumonia). Fluid around the lungs (pulmonary edema). A skin rash caused by the chickenpox virus (shingles). Tumors that affect the back of the abdomen. Gallbladder disease. Follow these instructions at home: Drink enough fluid to keep your urine clear or pale yellow. Rest as told by your health care provider. Take [id number] and prescription medicines only as told by your health care provider. Keep a journal to track what has caused your flank pain and what has made it feel better. Keep all follow-up visits as told by your health care provider. This is important. Contact a health care provider if: Your pain is not controlled with medicine. You have new symptoms. Your pain gets worse. You have a fever. Your symptoms last longer than 2 3 days. You have trouble urinating or you are urinating very frequently. Get help right away if: You have trouble breathing or you are short of breath. Your abdomen hurts or it is swollen or red. You have nausea or vomiting. You feel faint or you pass out. You have blood in your urine. Summary Flank pain is pain that is located on the side of the body between the upper abdomen and the back. The pain may occur over a short period of time (acute), or it may be long-term or recurring (chronic). It may be mild or severe. Flank pain can be caused by many things. Contact your health care provider if your symptoms get worse or they last longer than 2 3 days. This information is not intended to replace advice given to you by your health care provider. Make sure you discuss any questions you have with your health care provider. Document Released: 07/02/2006 Document Revised: 04/23/2018 Document Reviewed: 07/24/2017 App Press Patient Education [employer]. Follow Up Care 08/29/2021 19:02:33 With:Andreas ECKERT Address: [address] [place] [address] [facility] (1) When:09/01/2021 Comments:Return to the emergency room if your pain gets worse, abdominal pain, fever, vomiting, bowel or bladder incontinence, numbness/tingling in the saddle/groin area or any new symptoms. [facility]04-07-2022 Evaluation + Plan noteExtracted from: Title:ED Note Author:Deepti Gee M.D. te:08/29/21 1. Right flank pain (R10.9: Unspecified abdominal pain) Ordered: acetaminophen-hydrocodone, 1 tab(s), Oral, q6hr as needed for pain, 7 tab(s), Refill(s) 0, [facility]/pharmacy #[id number], 165, cm, 08/29/21 19:07:00 EDT, Height/Length Dosing, 128, kg, 08/29/21 19:07:00 EDT, Weight Dosing Orders: acetaminophen-hydrocodone, 1 EA, Tab, Oral, Once, Stop date 08/29/21 22:13:00 EDT, STAT, Start date 08/29/21 22:13:00 EDT ketorolac, 30 mg = 1 mL, Injection, IV Push, Once, Stop date 08/29/21 19:23:00 EDT, STAT, Start date 08/29/21 19:23:00 EDT, 08/29/21 19:23:00 EDT morphine, 4 mg = 1 mL, Injection, IV Push, Once, Stop date 08/29/21 20:32:00 EDT, STAT, Start date 08/29/21 20:32:00 EDT, 08/29/21 20:32:00 EDT ondansetron, 4 mg = 2 mL, Injection, IV Push, Once, Stop date 08/29/21 19:23:00 EDT, STAT, Start date 08/29/21 19:23:00 EDT, 08/29/21 19:23:00 EDT Sodium Chloride 0.9% intravenous solution, Soln-IV, Misc, Once, Stop date 08/29/21 19:32:31 EDT, Physician Stop, 08/29/21 19:32:31 EDT Sodium Chloride 0.9% intravenous solution, 1,000 mL, Soln-IV, IV, Once, Stop date 08/29/21 19:23:00 EDT, STAT, Start date 08/29/21 19:23:00 EDT, mL/hr, Infuse over 61, minute(s) .Manual Abs Basic Metabolic Panel CBC w/ Auto Diff CT Abdomen/Pelvis w/o Contrast eGFR Manual Diff Path. Review U Beta Hcg Qual UA With Cult Reflex Future Appointments Appointment Date:11/21/2021 08:00:00 AM Scheduled Provider:Andrew Fuller MD Location:FT.[facility] Appointment Type:Pain Management - Follow Up (FT) Appointment Date:04/30/2022 09:00:00 AM Scheduled Provider:Hussain Varner DO Location:.ONCOLOGY Appointment Type:ONC Office Visit 15 (FT) Diagnostic Tests Pending * Path. Review 08/29/21 Future Scheduled Tests Laboratory* HgbA1c 09/25/20 * HgbA1c 12/26/20 * HgbA1c 03/28/21 * CBC w/ Auto Diff 08/29/21 * CBC w/ Auto Diff 12/29/21 * CBC w/ Auto Diff 04/30/22 * Comprehensive Metabolic Panel 08/29/21 * Comprehensive Metabolic Panel 12/29/21 * Comprehensive Metabolic Panel 04/30/22 * Comprehensive Metabolic Panel 05/03/21 * Ferritin 08/29/21 * Ferritin 12/29/21 * Ferritin 04/30/22 * Ferritin 05/03/21 * Iron Level 08/29/21 * Iron Level 12/29/21 * Iron Level 04/30/22 * Iron Level 05/03/21 * Iron Percent Saturation 08/29/21 * Iron Percent Saturation 12/29/21 * Iron Percent Saturation 04/30/22 * Iron Percent Saturation 05/03/[address] [facility]12-07-2021 Hospital Discharge instructions Follow Up Care 04/30/2021 09:48:12 With:Hussain Varner Address: [address] [place] [phone] Fax Business (1) When: Unknown With:Hussain Varner Address: [address] [place] [address] [phone] Fax Business (1) When: Unknown Comments:stay off of b12, every 4 months check cbc, cmp, b12, folate, iron studies. f/u with or eileen [address] Future Appointments Appointment Date:12/12/2021 01:00:00 PM Scheduled Provider:Andrew Fuller MD Location:FT.[facility] Appointment Type:Pain Management - Follow Up (FT) Appointment Date:04/30/2022 09:00:00 AM Scheduled Provider:Hussain Varner DO Location:.ONCOLOGY Appointment Type:ONC Office Visit 15 (FT) Future Scheduled Tests Laboratory* HgbA1c 12/26/20 * HgbA1c 03/28/21 * CBC w/ Auto Diff 08/29/21 * CBC w/ Auto Diff 12/29/21 * CBC w/ Auto Diff 04/30/22 * Comprehensive Metabolic Panel 08/29/21 * Comprehensive Metabolic Panel 12/29/21 * Comprehensive Metabolic Panel 04/30/22 * Comprehensive Metabolic Panel 05/03/21 * Ferritin 08/29/21 * Ferritin 12/29/21 * Ferritin 04/30/22 * Ferritin 05/03/21 * Iron Level 08/29/21 * Iron Level 12/29/21 * Iron Level 04/30/22 * Iron Level 05/03/21 * Iron Percent Saturation 08/29/21 * Iron Percent Saturation 12/29/21 * Iron Percent Saturation 04/30/22 * Iron Percent Saturation 05/03/[address] App[facility]ments Appointment Date:12/12/2021 01:00:00 PM Scheduled Provider:Andrew Fuller MD Location:[facility] Appointment Type:Pain Management - Follow Up (FT) Appointment Date:12/17/2021 02:00:00 PM Scheduled Provider:Alyssa GA CNP [facility]iology ED Follow Up (FT) Appointment Date:04/03/2022 08:00:00 AM Scheduled Provider:Andreas ECKERT DO, FAAFP Location:[facility] Appointment Type:FM Open Appointment Date:04/30/2022 09:00:00 AM Scheduled Provider:Hussain Varner DO [facility] Type:ONC Office Visit 15 (FT) Future Scheduled Tests Laboratory* HgbA1c 12/26/20 * HgbA1c 03/28/21 * CBC w/ Auto Diff 08/29/21 * CBC w/ Auto Diff 12/29/21 * CBC w/ Auto Diff 04/30/22 * Comprehensive Metabolic Panel 08/29/21 * Comprehensive Metabolic Panel 12/29/21 * Comprehensive Metabolic Panel 04/30/22 * Comprehensive Metabolic Panel 05/03/21 * Ferritin 08/29/21 * Ferritin 12/29/21 * Ferritin 04/30/22 * Ferritin 05/03/21 * Iron Level 08/29/21 * Iron Level 12/29/21 * Iron Level 04/30/22 * Iron Level 05/03/21 * Iron Percent Saturation 08/29/21 * Iron Percent Saturation 12/29/21 * Iron Percent Saturation 04/30/22 * Iron Percent Saturation 05/03/21 [facility] Evaluation + Plan note Future Appointments Appointment Date:04/03/2022 08:00:00 AM Scheduled Provider:Andreas ECKERT DO, FAAFP Location:[facility] Appointment Type:FM Open Appointment Date:04/30/2022 09:00:00 AM Scheduled Provider:Hussain Varner DO [facility] Type:ONC Office Visit 15 (FT) Future Scheduled Tests Laboratory* HgbA1c 12/12/21 * HgbA1c 12/26/20 * HgbA1c 03/28/21 * Glucose Random 12/12/21 * CBC w/ Auto Diff 08/29/21 * CBC w/ Auto Diff 12/29/21 * CBC w/ Auto Diff 04/30/22 * Comprehensive Metabolic Panel 08/29/21 * Comprehensive Metabolic Panel 12/29/21 * Comprehensive Metabolic Panel 04/30/22 * Comprehensive Metabolic Panel 05/03/21 * Ferritin 08/29/21 * Ferritin 12/29/21 * Ferritin 04/30/22 * Ferritin 05/03/21 * Iron Level 08/29/21 * Iron Level 12/29/21 * Iron Level 04/30/22 * Iron Level 05/03/21 * Iron Percent Saturation 08/29/21 * Iron Percent Saturation 12/29/21 * Iron Percent Saturation 04/30/22 * Iron Percent Saturation 05/03/21 Radiology* NM Myocardial Spect Part 2 12/23/[address] Appointments Appointment Date:04/30/2022 09:00:00 AM Scheduled Provider:Hussain Varner DO Location:FT.ONCOLOGY Appointment Type:ONC Office Visit 15 (FT) Future Scheduled Tests Laboratory* HgbA1c 12/12/21 * Glucose Random 12/12/21 * CBC w/ Auto Diff 08/29/21 * CBC w/ Auto Diff 12/29/21 * Comprehensive Metabolic Panel 08/29/21 * Comprehensive Metabolic Panel 12/29/21 * Comprehensive Metabolic Panel 05/03/21 * Ferritin 08/29/21 * Ferritin 12/29/21 * Ferritin 05/03/21 * Iron Level 08/29/21 * Iron Level 12/29/21 * Iron Level 05/03/21 * Iron Percent Saturation 08/29/21 * Iron Percent Saturation 12/29/21 * Iron Percent Saturation 05/03/21 Radiology* NM Myocardial Spect Part 2 12/23/[address] Future Appointments Appointment Date:05/04/2023 10:30:00 AM Scheduled Provider:Daja Ho [facility] Type:ONC Office Visit 30 (FT) Future Scheduled Tests Laboratory* HgbA1c 12/12/21 * Glucose Random 12/12/21 * CBC w/ Auto Diff 08/29/22 * CBC w/ Auto Diff 12/29/22 * CBC w/ Auto Diff 04/30/23 * Comprehensive Metabolic Panel 08/29/22 * Comprehensive Metabolic Panel 12/29/22 * Comprehensive Metabolic Panel 04/30/23 * Ferritin 08/29/22 * Ferritin 12/29/22 * Ferritin 04/30/23 * Folate Level 08/29/22 * Folate Level 12/29/22 * Folate Level 04/30/23 * Iron Level 08/29/22 * Iron Level 12/29/22 * Iron Level 04/30/23 * Iron Percent Saturation 08/29/22 * Iron Percent Saturation 12/29/22 * Iron Percent Saturation 04/30/23 * Vitamin B12 Level 08/29/22 * Vitamin B12 Level 12/29/22 * Vitamin B12 Level 04/30/23 Radiology* NM Myocardial Spect Part 2 12/23/[address] Appointments Appointment Date:05/13/2022 02:30:00 PM Scheduled Provider: Location:.ONCOLOGY Appointment Type:ONC Injectafer (FT) Appointment Date:05/04/2023 10:30:00 AM Scheduled Provider:Sanam MCMAHON, Daja Harman Location:.ONCOLOGY Appointment Type:ONC Office Visit 30 (FT) Future Scheduled Tests Laboratory* HgbA1c 12/12/21 * Glucose Random 12/12/21 * CBC w/ Auto Diff 08/29/22 * CBC w/ Auto Diff 12/29/22 * CBC w/ Auto Diff 04/30/23 * Comprehensive Metabolic Panel 08/29/22 * Comprehensive Metabolic Panel 12/29/22 * Comprehensive Metabolic Panel 04/30/23 * Ferritin 08/29/22 * Ferritin 12/29/22 * Ferritin 04/30/23 * Folate Level 08/29/22 * Folate Level 12/29/22 * Folate Level 04/30/23 * Iron Level 08/29/22 * Iron Level 12/29/22 * Iron Level 04/30/23 * Iron Percent Saturation 08/29/22 * Iron Percent Saturation 12/29/22 * Iron Percent Saturation 04/30/23 * Vitamin B12 Level 08/29/22 * Vitamin B12 Level 12/29/22 * Vitamin B12 Level 04/30/23 Radiology* NM Myocardial Spect Part 2 12/23/[address] Future Appointments Appointment Date:07/09/2022 03:00:00 PM Scheduled Provider:Andrew Fuller MD Location:[facility] Appointment Type:Pain Management - Follow Up (FT) Appointment Date:08/04/2022 12:40:00 PM Scheduled Provider:Andreas ECKERT DO, FAAFP Location:[facility] Appointment Type:FM Open Appointment Date:05/04/2023 10:30:00 AM Scheduled Provider:Daja Ho [facility] Type:ONC Office Visit 30 (FT) Future Scheduled Tests Laboratory* HgbA1c 12/12/21 * UA With Cult Reflex 06/05/22 * Glucose Random 12/12/21 * CBC w/ Auto Diff 08/29/22 * CBC w/ Auto Diff 12/29/22 * CBC w/ Auto Diff 04/30/23 * Comprehensive Metabolic Panel 08/29/22 * Comprehensive Metabolic Panel 12/29/22 * Comprehensive Metabolic Panel 04/30/23 * Ferritin 08/29/22 * Ferritin 12/29/22 * Ferritin 04/30/23 * Folate Level 08/29/22 * Folate Level 12/29/22 * Folate Level 04/30/23 * Iron Level 08/29/22 * Iron Level 12/29/22 * Iron Level 04/30/23 * Iron Percent Saturation 08/29/22 * Iron Percent Saturation 12/29/22 * Iron Percent Saturation 04/30/23 * Vitamin B12 Level 08/29/22 * Vitamin B12 Level 12/29/22 * Vitamin B12 Level 04/30/23 Radiology* NM Myocardial Spect Part 2 12/23/21 [facility] Evaluation + Plan note Future Appointments Appointment Date:08/04/2022 12:40:00 PM Scheduled Provider:Andreas ECKERT DO, FAAFP Location:[facility] Appointment Type:FM Open Appointment Date:05/04/2023 10:30:00 AM Scheduled Provider:Daja Ho [facility] Type:ONC Office Visit 30 (FT) Future Scheduled Tests Laboratory* HgbA1c 12/12/21 * UA With Cult Reflex 06/05/22 * Glucose Random 12/12/21 * CBC w/ Auto Diff 08/29/22 * CBC w/ Auto Diff 12/29/22 * CBC w/ Auto Diff 04/30/23 * Comprehensive Metabolic Panel 08/29/22 * Comprehensive Metabolic Panel 12/29/22 * Comprehensive Metabolic Panel 04/30/23 * Ferritin 08/29/22 * Ferritin 12/29/22 * Ferritin 04/30/23 * Folate Level 08/29/22 * Folate Level 12/29/22 * Folate Level 04/30/23 * Iron Level 08/29/22 * Iron Level 12/29/22 * Iron Level 04/30/23 * Iron Percent Saturation 08/29/22 * Iron Percent Saturation 12/29/22 * Iron Percent Saturation 04/30/23 * Vitamin B12 Level 08/29/22 * Vitamin B12 Level 12/29/22 * Vitamin B12 Level 04/30/23 Radiology* NM Myocardial Spect Part 2 12/23/[address] [facility] Future Appointments Appointment Date:08/14/2022 09:00:00 AM Scheduled Provider:[facility] - Office Injection (FT) Appointment Date:09/04/2022 08:20:00 AM Scheduled Provider:Andreas ECKERT DO, FAAFP Location:[facility] Appointment Type:FM Open Appointment Date:10/03/2022 08:20:00 AM Scheduled Provider:Andreas ECKERT DO, FAAFP Location:[facility] Appointment Type: Open Appointment Date:11/04/2022 08:20:00 AM Scheduled Provider:Andreas ECKERT DO, FAAFP Location:[facility] Appointment Type:FM Open Appointment Date:05/04/2023 10:30:00 AM Scheduled Provider:Daja Ho [facility] Type:ONC Office Visit 30 (FT) Future Scheduled Tests Laboratory* HgbA1c 12/12/21 * UA With Cult Reflex 06/05/22 * Glucose Random 12/12/21 * CBC w/ Auto Diff 08/29/22 * CBC w/ Auto Diff 12/29/22 * CBC w/ Auto Diff 04/30/23 * Comprehensive Metabolic Panel 08/29/22 * Comprehensive Metabolic Panel 12/29/22 * Comprehensive Metabolic Panel 04/30/23 * Ferritin 08/29/22 * Ferritin 12/29/22 * Ferritin 04/30/23 * Folate Level 08/29/22 * Folate Level 12/29/22 * Folate Level 04/30/23 * Iron Level 08/29/22 * Iron Level 12/29/22 * Iron Level 04/30/23 * Iron Percent Saturation 08/29/22 * Iron Percent Saturation 12/29/22 * Iron Percent Saturation 04/30/23 * Lipid Panel 08/04/22 * Vitamin B12 Level 08/29/22 * Vitamin B12 Level 12/29/22 * Vitamin B12 Level 04/30/23 * Vitamin B12 Level 08/04/22 Radiology* NM Myocardial Spect Part 2 12/23/21 [facility] Evaluation + Plan note Future Appointments Appointment Date:09/04/2022 08:20:00 AM Scheduled Provider:Andreas ECKERT DO, FAAFP Location:[facility] Appointment Type: Open Appointment Date:10/03/2022 08:20:00 AM Scheduled Provider:Andreas ECKERT DO, FAAFP Location:[facility] Appointment Type: Open Appointment Date:11/04/2022 08:20:00 AM Scheduled Provider:Andreas ECKERT DO, FAAFP Location:[facility] Appointment Type: Open Appointment Date:11/13/2022 08:45:00 AM Scheduled Provider:Andrew Fuller MD Location:[facility] Appointment Type:Pain Management - Follow Up (FT) Appointment Date:05/04/2023 10:30:00 AM Scheduled Provider:Daja Ho Location:FT.ONCOLOGY Appointment Type:ONC Office Visit 30 (FT) Future Scheduled Tests Laboratory* CBC w/ Auto Diff 08/29/22 * CBC w/ Auto Diff 12/29/22 * CBC w/ Auto Diff 04/30/23 * Comprehensive Metabolic Panel 08/29/22 * Comprehensive Metabolic Panel 12/29/22 * Comprehensive Metabolic Panel 04/30/23 * Ferritin 08/29/22 * Ferritin 12/29/22 * Ferritin 04/30/23 * Folate Level 08/29/22 * Folate Level 12/29/22 * Folate Level 04/30/23 * Iron Level 08/29/22 * Iron Level 12/29/22 * Iron Level 04/30/23 * Iron Percent Saturation 08/29/22 * Iron Percent Saturation 12/29/22 * Iron Percent Saturation 04/30/23 * Vitamin B12 Level 08/29/22 * Vitamin B12 Level 12/29/22 * Vitamin B12 Level 04/30/23 Radiology* NM Myocardial Spect Part 2 12/23/[address] Appointments Appointment Date:10/03/2022 08:20:00 AM Scheduled Provider:Andreas ECKERT DO, FAAFP Location:[facility] Appointment Type:FM Open Appointment Date:11/04/2022 08:20:00 AM Scheduled Provider:Andraes ECKERT DO, FAAFP Location:[facility] Appointment Type:FM Open Appointment Date:11/13/2022 08:45:00 AM Scheduled Provider:Andrew Fuller MD Location:[facility] Appointment Type:Pain Management - Follow Up (FT) Appointment Date:05/04/2023 10:30:00 AM Scheduled Provider:Daja Ho [facility] Type:ONC Office Visit 30 (FT) Future Scheduled Tests Laboratory* CBC w/ Auto Diff 08/29/22 * CBC w/ Auto Diff 12/29/22 * CBC w/ Auto Diff 04/30/23 * Comprehensive Metabolic Panel 08/29/22 * Comprehensive Metabolic Panel 12/29/22 * Comprehensive Metabolic Panel 04/30/23 * Ferritin 08/29/22 * Ferritin 12/29/22 * Ferritin 04/30/23 * Folate Level 08/29/22 * Folate Level 12/29/22 * Folate Level 04/30/23 * Iron Level 08/29/22 * Iron Level 12/29/22 * Iron Level 04/30/23 * Iron Percent Saturation 08/29/22 * Iron Percent Saturation 12/29/22 * Iron Percent Saturation 04/30/23 * Vitamin B12 Level 08/29/22 * Vitamin B12 Level 12/29/22 * Vitamin B12 Level 04/30/23 Radiology* NM Myocardial Spect Part 2 12/23/21 [facility] Evaluation + Plan note Future Appointments Appointment Date:11/04/2022 08:20:00 AM Scheduled Provider:Andreas ECKERT DO, FAAFP Location:[facility] Appointment Type:FM Open Appointment Date:11/13/2022 08:45:00 AM Scheduled Provider:Andrew Fuller MD [facility] Appoint[facility] Type:Pain Management - Follow Up (FT) Appointment Date:05/04/2023 10:30:00 AM Scheduled Provider:Daja Ho Location:FT.ONCOLOGY Appointment Type:ONC Office Visit 30 (FT) Future Scheduled Tests Laboratory* CBC w/ Auto Diff 08/29/22 * CBC w/ Auto Diff 12/29/22 * CBC w/ Auto Diff 04/30/23 * Comprehensive Metabolic Panel 08/29/22 * Comprehensive Metabolic Panel 12/29/22 * Comprehensive Metabolic Panel 04/30/23 * Ferritin 08/29/22 * Ferritin 12/29/22 * Ferritin 04/30/23 * Folate Level 08/29/22 * Folate Level 12/29/22 * Folate Level 04/30/23 * Iron Level 08/29/22 * Iron Level 12/29/22 * Iron Level 04/30/23 * Iron Percent Saturation 08/29/22 * Iron Percent Saturation 12/29/22 * Iron Percent Saturation 04/30/23 * Vitamin B12 Level 08/29/22 * Vitamin B12 Level 12/29/22 * Vitamin B12 Level 04/30/23 Radiology* NM Myocardial Spect Part 2 12/23/21 [facility] Evaluation + Plan note Future Appointments Appointment Date:11/04/2022 08:20:00 AM Scheduled Provider:Andreas ECKERT DO, FAAFP Location:[facility] Appointment Type:FM Open Appointment Date:11/13/2022 08:45:00 AM Scheduled Provider:Andrew Fuller MD [facility] Appointment Type:Pain Management - Follow Up (FT) Appointment Date:05/04/2023 10:30:00 AM Scheduled Provider:Daja Ho Location:FT.ONCOLOGY Appointment Type:ONC Office Visit 30 (FT) Future Scheduled Tests Laboratory* CBC w/ Auto Diff 12/29/22 * CBC w/ Auto Diff 04/30/23 * Comprehensive Metabolic Panel 12/29/22 * Comprehensive Metabolic Panel 04/30/23 * Ferritin 12/29/22 * Ferritin 04/30/23 * Folate Level 12/29/22 * Folate Level 04/30/23 * Iron Level 12/29/22 * Iron Level 04/30/23 * Iron Percent Saturation 12/29/22 * Iron Percent Saturation 04/30/23 * Vitamin B12 Level 12/29/22 * Vitamin B12 Level 04/30/23 Radiology* NM Myocardial Spect Part 2 12/23/[address] App[facility]ments Appointment Date:11/04/2022 08:20:00 AM Scheduled Provider:Andreas ECKERT DO, FAAFP Location:[facility] Appointment Type:FM Open Appointment Date:11/07/2022 08:30:00 AM Scheduled Provider: [facility] Type:ONC Injectafer (FT) Appointment Date:11/13/2022 08:45:00 AM Scheduled Provider:Andrew Fuller MD Location:[facility] Appointment Type:Pain Management - Follow Up (FT) Appointment Date:11/13/2022 09:30:00 AM Scheduled Provider:Daja Ho [facility] App[facility] Type:ONC Office Visit 15 (FT) Appointment Date:05/04/2023 10:30:00 AM Scheduled Provider:Daja Ho [facility] Type:ONC Office Visit 30 (FT) Diagnostic Tests Pending * vWF Activity 10/24/22 * von Willebrand Factor (vWF) Ag 10/24/22 * Factor V Leiden 10/24/22 Future Scheduled Tests Laboratory* CBC w/ Auto Diff 12/29/22 * CBC w/ Auto Diff 04/30/23 * Comprehensive Metabolic Panel 12/29/22 * Comprehensive Metabolic Panel 04/30/23 * Ferritin 12/29/22 * Ferritin 04/30/23 * Folate Level 12/29/22 * Folate Level 04/30/23 * Iron Level 12/29/22 * Iron Level 04/30/23 * Iron Percent Saturation 12/29/22 * Iron Percent Saturation 04/30/23 * Vitamin B12 Level 12/29/22 * Vitamin B12 Level 04/30/23 Radiology* NM Myocardial Spect Part 2 12/23/[address] [facility]ments Appointment Date:11/04/2022 08:20:00 AM Scheduled Provider:Andreas ECKERT DO, FAAFP Location:[facility] Appointment Type:FM Open Appointment Date:11/07/2022 08:30:00 AM Scheduled Provider: [facility] Type:ONC Injectafer (FT) Appointment Date:11/13/2022 08:45:00 AM Scheduled Provider:Andrew Fuller MD Location:[facility] Appointment Type:Pain Management - Follow Up (FT) Appointment Date:11/13/2022 09:30:00 AM Scheduled Provider:Daja Ho [facility] Appointment Type:ONC Office Visit 15 (FT) Appointment Date:05/04/2023 10:30:00 AM Scheduled Provider:Daja Ho [facility] Appointment Type:ONC Office Visit 30 (FT) Diagnostic Tests Pending * PEPE w/Reflex if POS 10/24/22 Future Scheduled Tests Laboratory* CBC w/ Auto Diff 12/29/22 * CBC w/ Auto Diff 04/30/23 * Comprehensive Metabolic Panel 12/29/22 * Comprehensive Metabolic Panel 04/30/23 * Ferritin 12/29/22 * Ferritin 04/30/23 * Folate Level 12/29/22 * Folate Level 04/30/23 * Iron Level 12/29/22 * Iron Level 04/30/23 * Iron Percent Saturation 12/29/22 * Iron Percent Saturation 04/30/23 * Vitamin B12 Level 12/29/22 * Vitamin B12 Level 04/30/23 Radiology* NM Myocardial Spect Part 2 12/23/[address] App[facility]ments Appointment Date:11/07/2022 08:30:00 AM Scheduled Provider: [facility] Appointment Type:ONC Injectafer (FT) Appointment Date:11/13/2022 08:45:00 AM Scheduled Provider:Andrew Fuller MD [facility] Appoint[facility] Type:Pain Management - Follow Up (FT) Appointment Date:11/13/2022 09:30:00 AM Scheduled Provider:Daja Ho [facility] Appointment Type:ONC Office Visit 15 (FT) Appointment Date:12/05/2022 08:20:00 AM Scheduled Provider:Andreas ECKERT DO, FAAFP Location:[facility] Appointment Type:FM Open Appointment Date:05/04/2023 10:30:00 AM Scheduled Provider:Daja Ho [facility] Appointment Type:ONC Office Visit 30 (FT) Future Scheduled Tests Laboratory* CBC w/ Auto Diff 12/29/22 * CBC w/ Auto Diff 04/30/23 * Comprehensive Metabolic Panel 12/29/22 * Comprehensive Metabolic Panel 04/30/23 * Ferritin 12/29/22 * Ferritin 04/30/23 * Folate Level 12/29/22 * Folate Level 04/30/23 * Iron Level 12/29/22 * Iron Level 04/30/23 * Iron Percent Saturation 12/29/22 * Iron Percent Saturation 04/30/23 * Vitamin B12 Level 12/29/22 * Vitamin B12 Level 04/30/23 Radiology* NM Myocardial Spect Part 2 12/23/21 [facility] Evaluation + Plan note Future Appointments Appointment Date:12/05/2022 08:20:00 AM Scheduled Provider:Andreas ECKERT DO, FAAFP Location:[facility] Appointment Type:FM Open Appointment Date:05/04/2023 10:30:00 AM Scheduled Provider:Daja Ho [facility] Appointment Type:ONC Office Visit 30 (FT) Future Scheduled Tests Laboratory* CBC w/ Auto Diff 12/29/22 * CBC w/ Auto Diff 04/30/23 * Comprehensive Metabolic Panel 12/29/22 * Comprehensive Metabolic Panel 04/30/23 * Ferritin 12/29/22 * Ferritin 04/30/23 * Folate Level 12/29/22 * Folate Level 04/30/23 * Iron Level 12/29/22 * Iron Level 04/30/23 * Iron Percent Saturation 12/29/22 * Iron Percent Saturation 04/30/23 * Vitamin B12 Level 12/29/22 * Vitamin B12 Level 04/30/23 Radiology* NM Myocardial Spect Part 2 12/23/[address] [facility] Appointments Appointment Date:12/05/2022 08:20:00 AM Scheduled Provider:Andreas ECKERT DO, FAAFP Location:[facility] Appointment Type: Open Appointment Date:05/04/2023 10:30:00 AM Scheduled Provider:Daja Ho [facility] Appointment Type:ONC Office Visit 30 (FT) Diagnostic Tests Pending * Urine Culture 11/26/22 Future Scheduled Tests Laboratory* CBC w/ Auto Diff 12/29/22 * CBC w/ Auto Diff 04/30/23 * Comprehensive Metabolic Panel 12/29/22 * Comprehensive Metabolic Panel 04/30/23 * Ferritin 12/29/22 * Ferritin 04/30/23 * Folate Level 12/29/22 * Folate Level 04/30/23 * Iron Level 12/29/22 * Iron Level 04/30/23 * Iron Percent Saturation 12/29/22 * Iron Percent Saturation 04/30/23 * Vitamin B12 Level 12/29/22 * Vitamin B12 Level 04/30/23 Radiology* NM Myocardial Spect Part 2 12/23/[address] Future Appointments Appointment Date:12/10/2022 03:00:00 PM Scheduled Provider: Bldaimir:[facility] Appointment Type:Surgery FT Appointment Date:01/16/2023 10:20:00 AM Scheduled Provider:Andreas ECKERT DO, FAAFP Location:[facility] Appointment Type: Open Appointment Date:05/04/2023 10:30:00 AM Scheduled Provider:Daja Ho [facility] Appointment Type:ONC Office Visit 30 (FT) Future Scheduled Tests Laboratory* CBC w/ Auto Diff 12/29/22 * CBC w/ Auto Diff 04/30/23 * Comprehensive Metabolic Panel 12/29/22 * Comprehensive Metabolic Panel 04/30/23 * Ferritin 12/29/22 * Ferritin 04/30/23 * Folate Level 12/29/22 * Folate Level 04/30/23 * Iron Level 12/29/22 * Iron Level 04/30/23 * Iron Percent Saturation 12/29/22 * Iron Percent Saturation 04/30/23 * Vitamin B12 Level 12/29/22 * Vitamin B12 Level 04/30/23 Radiology* NM Myocardial Spect Part 2 12/23/21 [facility] Evaluation + Plan note Future Appointments Appointment Date:01/02/2023 08:40:00 AM Scheduled Provider:Andreas ECKERT DO, FAAFP Location:[facility] Appointment Type: Open Appointment Date:01/16/2023 10:20:00 AM Scheduled Provider:Andreas ECKERT DO, FAAFP Location:[facility] Appointment Type: Open Appointment Date:05/04/2023 10:30:00 AM Scheduled Provider:Daja Ho [facility] Appointment Type:ONC Office Visit 30 (FT) Future Scheduled Tests Laboratory* CBC w/ Auto Diff 12/29/22 * CBC w/ Auto Diff 04/30/23 * Comprehensive Metabolic Panel 12/29/22 * Comprehensive Metabolic Panel 04/30/23 * Ferritin 12/29/22 * Ferritin 04/30/23 * Folate Level 12/29/22 * Folate Level 04/30/23 * Iron Level 12/29/22 * Iron Level 04/30/23 * Iron Percent Saturation 12/29/22 * Iron Percent Saturation 04/30/23 * Vitamin B12 Level 12/29/22 * Vitamin B12 Level 04/30/[address] Appointments Appointment Date:02/20/2023 11:20:00 AM Scheduled Provider:Andreas ECKERT DO, FAAFP Location:[facility] Appointment Type: Open Appointment Date:05/04/2023 10:30:00 AM Scheduled Provider:Daja Ho [facility] Appointment Type:ONC Office Visit 30 (FT) Future Scheduled Tests Laboratory* Basic Metabolic Panel 01/16/23 * CBC w/ Auto Diff 12/29/22 * CBC w/ Auto Diff 04/30/23 * CBC w/ Auto Diff 01/16/23 * Comprehensive Metabolic Panel 12/29/22 * Comprehensive Metabolic Panel 04/30/23 * Ferritin 12/29/22 * Ferritin 04/30/23 * Folate Level 12/29/22 * Folate Level 04/30/23 * Iron Level 12/29/22 * Iron Level 04/30/23 * Iron Level 01/16/23 * Iron Percent Saturation 12/29/22 * Iron Percent Saturation 04/30/23 * Vitamin B12 Level 12/29/22 * Vitamin B12 Level 04/30/23 [facility] Evaluation + Plan note Future Appointments Appointment Date:02/20/2023 11:20:00 AM Scheduled Provider:Andreas ECKERT DO, FAAFP Location:[facility] Appointment Type:FM Open Appointment Date:05/04/2023 10:30:00 AM Scheduled Provider:Daja Ho [facility] Appointment Type:ONC Office Visit 30 (FT) Future Scheduled Tests Laboratory* CBC w/ Auto Diff 04/30/23 * Comprehensive Metabolic Panel 04/30/23 * Ferritin 04/30/23 * Folate Level 04/30/23 * Iron Level 04/30/23 * Iron Percent Saturation 04/30/23 * Vitamin B12 Level 04/30/[address] [facility] Future Appointments Appointment Date:05/04/2023 10:30:00 AM Scheduled Provider:Daja Ho Location[facility] Appointment Type:ONC Office Visit 30 (FT) [facility] Future Appointments Appointment Date:08/06/2023 10:30:00 AM Scheduled Provider:Daja Ho [facility] Appoint[facility] Type:ONC Office Visit 30 (FT) Future Scheduled Tests Laboratory* CBC w/ Auto Diff 08/03/23 * Comprehensive Metabolic Panel 08/03/23 * Ferritin 08/03/23 * Iron Level 08/03/23 * Iron Percent Saturation 08/03/23 * Transferrin 08/03/[address] Future Appointments Appointment Date:06/05/2023 09:00:00 AM Scheduled Provider: [facility] Appointment Type:ONC Venofer (FT) Appointment Date:08/06/2023 10:30:00 AM Scheduled Provider:Daja Ho Location[facility] Appointment Type:ONC Office Visit 30 (FT) Future Scheduled Tests Laboratory* CBC w/ Auto Diff 08/03/23 * Comprehensive Metabolic Panel 08/03/23 * Ferritin 08/03/23 * Iron Level 08/03/23 * Iron Percent Saturation 08/03/23 * Transferrin 08/03/[address] Future Appointments Appointment Date:09/10/2023 11:00:00 AM Scheduled Provider:Daja Ho [facility] Appointment Type:ONC Office Visit 30 (FT) Appointment Date:10/14/2023 11:15:00 AM Scheduled Provider:Rupesh Gandara DO Location:[facility] Appointment Type:Pain Management - Follow Up (FT) Future Scheduled Tests Laboratory* CBC w/ Auto Diff 08/03/23 * Comprehensive Metabolic Panel 08/03/23 * Ferritin 08/03/23 * Iron Level 08/03/23 * Iron Percent Saturation 08/03/23 * Transferrin 08/03/23 [facility] Evaluation + Plan note Future Appointments Appointment Date:09/10/2023 11:00:00 AM Scheduled Provider:Daja Ho [facility] Appointment Type:ONC Office Visit 30 (FT) Appointment Date:10/14/2023 11:15:00 AM Scheduled Provider:Rupesh Gandara DO Location:[facility] Appointment Type:Pain Management - Follow Up (FT) Diagnostic Tests Pending * Urine Culture 09/01/23 Future Scheduled Tests Laboratory* CBC w/ Auto Diff 08/03/23 * Comprehensive Metabolic Panel 08/03/23 * Ferritin 08/03/23 * Iron Level 08/03/23 * Iron Percent Saturation 08/03/23 * Transferrin 08/03/[address] [facility] Appointments Appointment Date:10/14/2023 11:15:00 AM Scheduled Provider:Rupesh Gandara DO Location:[facility] Appointment Type:Pain Management - Follow Up (FT) Future Scheduled Tests Laboratory* CBC w/ Auto Diff 08/03/23 * Comprehensive Metabolic Panel 08/03/23 * Ferritin 08/03/23 * Iron Level 08/03/23 * Iron Percent Saturation 08/03/23 * Transferrin 08/03/[address] Future Appointments Appointment Date:02/10/2024 09:40:00 AM Scheduled Provider:Serafin Roberson DO Location:[facility] Appointment Type: New Patient - Adult Future Scheduled Tests Laboratory* CBC w/ Auto Diff 08/03/23 * Comprehensive Metabolic Panel 08/03/23 * Ferritin 08/03/23 * Iron Level 08/03/23 * Iron Percent Saturation 08/03/23 * Transferrin 08/03/23 [facility] Evaluation + Plan note Future Appointments Appointment Date:04/04/2024 09:40:00 AM Scheduled Provider:Daja Ho Location:.[facility] Appointment Type:ONC Office Visit 20 (FT) Appointment Date:05/27/2024 08:40:00 AM Scheduled Provider:Serafin Roberson DO Location:[facility] Appointment Type: Open [facility] + Plan note Future Appointments Appointment Date:05/27/2024 08:40:00 AM Scheduled Provider:Serafin Roberson DO Location:[facility] Appointment Type: Open Appointment Date:07/04/2024 09:40:00 AM Scheduled Provider:Daja Ho [facility] Type:ONC Office Visit 20 (FT) Future Scheduled Tests Laboratory* CBC w/ Auto Diff 07/05/24 * Comprehensive Metabolic Panel 07/05/24 * Ferritin 07/05/24 * Folate Level 07/05/24 * Iron Level 07/05/24 * Iron Percent Saturation 07/05/24 * Transferrin 07/05/24 * Vitamin B12 Level 07/05/[address] [facility] + Plan note Future Appointments Appointment Date:05/27/2024 08:40:00 AM Scheduled Provider:Serafin Roberson DO Location:[facility] Appointment Type: Open Future Scheduled Tests Laboratory* CBC w/ Auto Diff 08/03/23 * Comprehensive Metabolic Panel 08/03/23 * Ferritin 08/03/23 * Iron Level 08/03/23 * Iron Percent Saturation 08/03/23 * Transferrin 08/03/23 [facility] Evaluation + Plan note Future Appointments Appointment Date:06/06/2024 08:30:00 AM Scheduled Provider:Rupesh Gandara DO Location:[facility] Appointment Type:Pain Management - Follow Up (FT) Appointment Date:07/04/2024 09:40:00 AM Scheduled Provider:Daja Ho [facility] Appoint[facility] Type:ONC Office Visit 20 (FT) Appointment Date:07/08/2024 09:20:00 AM Scheduled Provider:Serafin Roberson DO Location:[facility] Appointment Type: Open Future Scheduled Tests Laboratory* CBC w/ Auto Diff 07/05/24 * Comprehensive Metabolic Panel 07/05/24 * Ferritin 07/05/24 * Folate Level 07/05/24 * Iron Level 07/05/24 * Iron Percent Saturation 07/05/24 * Transferrin 07/05/24 * Vitamin B12 Level 07/05/24 [facility] Evaluation + Plan note Future Appointments Appointment Date:08/08/2024 08:30:00 AM Scheduled Provider:Alyssa Young PA-C Location:[facility] Appointment Type:Pain Management - Follow Up (FT) Appointment Date:08/08/2024 11:20:00 AM Scheduled Provider:Jeffy Coffman MD [facility] Type:ONC Office Visit 20 (FT) Future Scheduled Tests Laboratory* CBC w/ Auto Diff 07/04/24 * Comprehensive Metabolic Panel 07/04/24 * Ferritin 07/04/24 * Folate Level 07/04/24 * Iron Level 07/04/24 * Iron Percent Saturation 07/04/24 * Transferrin 07/04/24 * Vitamin B12 Level 07/04/24 Radiology* MA Mamm Screen w/CAD if perf and 3D Pablo 07/08/24 [facility] Evaluation + Plan note Future Appointments Appointment Date:08/29/2024 10:20:00 AM Scheduled Provider:Jeffy Coffman MD Location[facility] Appointment Type:ONC Office Visit 20 (FT) Appointment Date:08/30/2024 09:15:00 AM Scheduled Provider:Alyssa Young PA-C Location[facility] Appointment Type:Pain Management - Follow Up (FT) Appointment Date:11/17/2024 03:20:00 PM Scheduled Provider:Serafin Roberson DO Location:[facility] Appointment Type: Open Future Scheduled Tests Radiology* MA Mamm Screen w/CAD if perf and 3D Pablo 07/08/[address] [facility] evaluation + Plan note Future Appointments Appointment Date:08/30/2024 09:15:00 AM Scheduled Provider:Alyssa Young PA-C Location[facility] Appointment Type:Pain Management - Follow Up (FT) Appointment Date:11/17/2024 03:20:00 PM Scheduled Provider:Serafin Roberson DO Location:[facility] Appointment Type: Open Appointment Date:02/28/2025 11:00:00 AM Scheduled Provider:Jeffy Coffman MD Location[facility] Appointment Type:ONC Office Visit 20 (FT) Future Scheduled Tests Laboratory* CBC w/ Auto Diff 02/28/25 * Ferritin 02/28/25 * Folate Level 02/28/25 * Iron Level 02/28/25 * Iron Percent Saturation 02/28/25 * Transferrin 02/28/25 * Vitamin B12 Level 02/28/25 Radiology* MA Mamm Screen w/CAD if perf and 3D Pablo 07/08/[address] [facility] Evaluation + Plan note Future Appointments Appointment Date:11/17/2024 03:20:00 PM Scheduled Provider:Serafin Roberson DO Location:[facility] Appointment Type: Open Appointment Date:02/28/2025 11:00:00 AM Scheduled Provider:Jeffy Coffman MD Location:.[facility] Appointment Type:ONC Office Visit 20 (FT) Future Scheduled Tests Laboratory* CBC w/ Auto Diff 02/28/25 * Ferritin 02/28/25 * Folate Level 02/28/25 * Iron Level 02/28/25 * Iron Percent Saturation 02/28/25 * Transferrin 02/28/25 * Vitamin B12 Level 02/28/25 Radiology* MA Mamm Screen w/CAD if perf and 3D Pablo 07/08/24 [facility] Evaluation note* Diagnosis Dysmenorrhea Pain in female genitalia on intercourse Dyspareunia documented in this encounter [facility] HealthcareEvaluation noteNo assessment information availableSelect Medical [facility] [place] Work Phone: Evaluation note* Diagnosis Pre-op examination Menorrhagia with regular cycle Abnormal uterine bleeding Unspecified disorder of menstruation and other abnormal bleeding from female genital tract Pelvic pain in female Unspecified symptom associated with female genital organs documented in this encounter [facility] HealthcareHospital course Narrative No data available for this section [facility] No data available for this section [facility] No data available for this section [facility]Reason for referral (narrative) Referred by: Andreas ECKERT DO, FAAFP [facility] Summary Purpose Family History No Family History Records FoundNo Family History Records Found No data available for this section No data available for this section No data available for this section No data available for this section No data available for this section No data available for this section No data available for this section No data available for this section No data available for this section No data available for this section No data available for this section No Family History Records FoundNo Family History Records FoundNo Family History Records FoundNo Family History Records FoundNo Family History Records FoundNo Family History Records Found No data available for this section No data available for this section No data available for this section No Family History Records Found No data available for this section No data available for this section No data available for this section No data available for this section No data available for this section No data available for this section No Family History Records FoundNo Family History Records FoundNo Family History Records FoundNo Family History Records FoundNo Family History Records FoundNo Family History Records FoundNo Family History Records FoundNo Family History Records FoundNo Family History Records FoundNo Family History Records FoundNo Family History Records Found No data available for this section No Family History Records FoundNo Family History Records FoundNo Family History Records Found No data available for this section No data available for this section No Family History Records Found Advance Directives No Advanced Directives Records FoundNo Advanced Directives Records FoundNo Advanced Directives Records FoundNo Advanced Directives Records FoundNo Advanced Directives Records FoundNo Advanced Directives Records FoundNo Advanced Directives Records FoundNo Advanced Directives Records FoundNo Advanced Directives Records FoundNo Advanced Directives Records FoundNo Advanced Directives Records FoundNo Advanced Directives Records FoundNo Advanced Directives Records FoundNo Advanced Directives Records FoundNo Advanced Directives Records FoundNo Advanced Directives Records FoundNo Advanced Directives Records FoundNo Advanced Directives Records FoundNo Advanced Directives Records FoundNo Advanced Directives Records FoundNo Advanced Directives Records FoundNo Advanced Directives Records FoundNo Advanced Directives Records FoundNo Advanced Directives Records Found Additional Source Comments INFORMATION SOURCE (unrecogn ized section and content) DATE CREATED AUTHOR 04/17/2018 [facility] DATE CREATED AUTHOR AUTHOR'S ORGANIZ ATION 03/16/2021 [facility] DATE CREATED AUTHOR AUTHOR'S ORGANIZ ATION 04/02/2024 Ortega Delvis [facility] DATE CREATED AUTHOR AUTHOR'S ORGANIZ ATION 06/03/2024 [facility] DATE CREATED AUTHOR AUTHOR'S ORGANIZ ATION 08/29/2024 Ortega [place] [facility] DATE CREATED AUTHOR AUTHOR'S ORGANIZ ATION 09/09/2024 Ortega [place] [facility] DATE CREATED AUTHOR AUTHOR'S ORGANIZ ATION 09/29/2024 [facility] DATE CREATED AUTHOR AUTHOR'S ORGANIZ ATION 09/30/2024 [facility] DATE CREATED AUTHOR AUTHOR'S ORGANIZ ATION 10/05/2024 [facility] Care Team (unrecognized sect ion and content) Correspondence Review Clerk Relationship Specialty Start Date End Date Andreas Eckert MD [address] [place] [address] PCP - General Family Medicine 01/29/23 Correspondence Review Clerk Relationship Specialty Start Date End Date Andreas Eckert MD [address] [place] [address] PCP - General Family Medicine 01/29/23 Team Status: Inactive Member Role Status Dates Dada Perkins DO Attending Provider Active Start : September 26, 2024 End: September 26, 2024 Correspondence Review Clerk Relationship Specialty Start Date End Date Andreas Eckert MD [address] [place] [address] PCP - General Family Medicine 01/29/23 Reason for Visit (unrecogniz ed section and content) Reason Comments Dysmenorrhea Reason Comments Pre-op Visit Endometrial Biopsy Goals (unrecognized section and content) Goals may be documented in a n alternate section FOR RECORDS PERTAINING TO PATIENTS WHO ARE OR HAVE BEEN ENROLLED IN A CHEMICAL DEPENDENCY/SUBSTANCEABUSE PROGRAM, SOME INFORMATION MAY BE OMITTED. This clinical summary was aggregated from multiple sources. Caution should be exercised in using it in the provision of clinical care. This summary normalizes information from multiple sources, and as a consequence, information in this document may materially change the coding, format and clinical context of patient data. In addition, data may be omitted in some cases. CLINICAL DECISIONS SHOULD BE BASED ON THE PRIMARY CLINICAL RECORDS. [employer] provides no warranty or guarantee of the accuracy or completeness of information in this document.
--- NOTE | 2024-10-10 10:07 | XR_ITS ---
[address] [address] Patient Name: ELIEL ANAYA MRN: [id number] date: 1975 Sex: F [facility] Accession/Order Number: [id number] Exam Date: 10/10/2024 10:20 Report Date: 10/10/2024 10:22 At the request of: DONALD SANDOVAL DO Procedure: XR chest 2V Chest 2 views CLINICAL HISTORY: Preop exam COMPARISON: Chest 03/31/2023 FINDINGS: Heart normal in size. Lungs are clear. No free air. XR/XR chest 2V IMPRESSION: NO ACUTE CARDIOPULMONARY ABNORMALITY. Impression dictated by: Tristin Burris Jr., D.OJustino 10/10/2024 10:22 AM Dictation Location: [facility]ENTERUtiliData Electronically authenticated by: [id number] Y Date: 10/10/2024 10:22
[2024-10-10 10:21] LABS: Anion Gap 12.1; Calcium 9.9 mg/dL (8.5-10.1); Carbon Dioxide 29.3 mmol/L (21.0-32.0); Chloride 102 mmol/L (98-107); Estimated GFR (African America >60 (>=60 mL/min/1.73m^2); Estimated GFR (Non-African Ame 60 (>=60 mL/min/1.73m^2); Glucose 104 mg/dL (74-106); Potassium 3.4 mmol/L (3.5-5.1); Sodium 140 mmol/L (136-145)
== END 2024-10-10 09:15 | disposition home or self-care (01) ==
PROVIDERS: PCP Family Medicine Adult Medicine; Visit Provider Obstetrics & Gynecology
DX: Z01.810 Encounter for preprocedural cardiovascular examination (principal); Z01.812 Encounter for preprocedural laboratory examination; N92.0 Excessive and frequent menstruation with regular cycle; N93.9 Abnormal uterine and vaginal bleeding, unspecified; R10.2 Pelvic and perineal pain
CPT/HCPCS: 71046; 80048; 93005

== ENCOUNTER 2024-10-21 06:09 | Day surgery (SDC) | payer OTHER, SELFPAY ==
[2024-10-10 09:53] VITALS: BP 131/82; PULSE 73; TEMP 36.3; O2SAT 99; BMI 43.1
--- OUTSIDE RECORDS SUMMARY | 2024-10-21 06:12 | XMS_ITS | CCD ---
Author Organization [facility] Care Team Providers Care Black Studies Professor Name Role Phone DAVID, KOSTA A Unavailable Unavailable DAVID, KOSTA A Unavailable Unavailable DAVID, KOSTA A Unavailable Unavailable DAVID, KOSTA A Unavailable Unavailable DAVID, KOSTA A Unavailable Unavailable Andreas ECKERT Primary Care Physician Serafin Roberson Primary Care Physician Unavail able [...] Care Provider Dada Perkins DO Attending Provider [phone] DADA PERKINS Attending Unavailable DADA PERKINS Attending Unavailable Dada Perkins Attending Unavailable Dada Perkins Admitting Unavailable Jeffy Coffman Attending UnavailSerafin Guan Attending Unavailable Serafin Roberson Admitting Unavailable Serafin Roberson Attending Unavailable Allergies Allergy Classification Reported Allergen(s) Allergy Type Date of Onset Reaction(s) Facility (20 sources) Sulfonamides (Antibiotic); Translations: [sulfa drugs] Propensity to adverse reactions to drug (disorder) TONGUE SWELLS, angioedema [facility] Repository (20 sources) pregabalin; Translations: [pregabalin] Drug Allergy unknown [facility] (8 sources) Pregabalin Allergy to substance 3 Unknown [facility] (8 sources) Sulfonamides (Antibiotic) Drug Allergy 3 Angioedema, Unknown [facility] Medications Current Medications Medication Drug Class(es) Dates Sig (Normalized) Sig (Original) acetaminophen 325 mg / HYDROcodone bitartrate 5 mg oral tablet (3 sources) Opioid Agonist Start: 08-29-2021 [place] 325 mg-5 mg oral tablet 1 tab(s), Oral, q6hr as needed for pain, 7 tab(s), Refill(s) 0, [id number], 165, cm, 08/29/21 19:07:00 EDT, Height/Length Dosing, 128, kg, 08/29/21 19:07:00 EDT, Weight Dosing Start Date: 08/29/21 Status: Ordered [id number] 200 actuat albuterol 0.09 mg/actuat metered dose [...] Albuterol (Eqv-ProAir HFA) 90 mcg/inh inhalation aerosol (11 sources) Start: 11-09-2023 take 2 puff(s) by inhalation every six hours Albuterol (Eqv-ProAir HFA) 90 mcg/inh inhalation aerosol 2 puff(s), Inhalation, q6hr, 18 gm, Refill(s) 0, [id number], 165, cm, 11/09/23 16:50:00 EDT, Height/Length Dosing, 116.7, kg, 11/09/23 16:50:00 EDT, Weight Dosing Start Date: 11/09/23 Status: Ordered Quantity: 18.0 Unit: g Repeat number: 1 Indications: Wheezing; Start: 11-09-2023 take 2 puff(s) by in halation every six hours Albuterol (Eqv-ProAir HFA) 90 [...] day(s), # 20 tab(s), Refills(s) 0, [id number], cm, 11/09/23 16:50:00 EDT, Height/Length Dosing, 116.7, kg, 11/09/23 16:50:00 EDT, Weight Dosing Start Date: 11/09/23 Stop Date: 11/19/23 Status: Ordered Start: 06-17-2022 End: 06-22-2022 take 1 tablet by mouth every twelve hours Augmentin 875 mg oral tablet = 1 tab(s), Oral, q12hr, X 5 day(s), # 10 tab(s), Refills(s) 0, [id number] 165, cm, 06/17/22 19:01:00 EST, Height/Length Dosing, 125, kg, 06/17/22 19:01:00 EST, Weight Dosing Start Date: 06/17/22 Stop Date: 06/22/22 Status: Ordered azithromycin 250 mg oral tablet (2 sources) Macrolide Antimicrobial Start: 06-30-2022 Zithromax 250 mg Tab = 1 packet(s), Oral, As Directed, as directed on package labeling, # 6 tab(s), Refills(s) 1, [id number] 162, cm, 06/30/22 11:40:00 EST, Height/Length Dosing, 126, kg, 06/30/22 11:39:00 EST, Weight Dosing Start Date: 06/30/22 Status: Ordered B12 (1 source) Start: 08-29-2024 B12 B12, See Instructions, 1 kit(s), 2, Syringes for B12 injections every 2 weeks 3 ml syringe 23 guage 1 inch needle. Quantity sufficient for injections., [facility], Supply, 165, cm, 08/29/24 10:36:00 EDT, Height/Length Dosing, 118.1, kg, 08/29/24 10:36:00 EDT, Weight Dosing Start Date: 08/29/24 Status: Ordered Quantity: 1.0 Unit: kit(s) Repeat number: 3 Indications: Deficiency of other specified B group vitamins; benzonatate 100 mg oral capsule (1 source) Non-narcotic Antitussive Start: 11-09-2023 End: 11-16-2023 take 1 capsule by mouth three times daily Tessalon 100 mg Cap 100 mg = 1 cap(s), Oral, TID, X 7 day(s), # 21 cap(s), Refills(s) 0, Pharmacy: [id number], 165, cm, 11/09/23 16:50:00 EDT, Height/Length Dosing, 116.7, kg, 11/09/23 16:50:00 EDT, Weight Dosing Start Date: 11/09/23 Stop Date: 11/16/23 Status: Ordered brompheniramine maleate 0.4 mg/ml / dextromethorphan hydrobromide 2 mg/ml / pseudoephedrine hydrochloride 6 mg/ml oral solution (4 sources) alpha-Adrenergic Agonist, Uncompetitive D-[id number]-asparta te Receptor Antagonist, Sigma-1 Agonist Start: 05-30-2022 take 10 mL by mouth four times daily Bromfed DM oral syrup 10 mL, Oral, QID for cold symptoms, 200 mL, Refill(s) 0, [id number], 165, cm, 05/30/22 9:05:00 EST, Height/Length Dosing, 125, kg, 05/30/22 9:05:00 EST, Weight Dosing Start Date: 05/30/22 Status: Ordered Start: 05-20-2022 take 5 mL by mouth f our times daily Bromfed DM oral syrup 5 mL, Oral, QID for cold symptoms, 200 mL, Refill(s) 0, [id number], 165, cm, 05/20/22 18:06:00 EST, Height/Length Dosing, 124, kg, 05/20/22 18:06:00 EST, Weight Dosing Start Date: 05/20/22 Status: Ordered 24 hr buPROPion hydrochloride 300 mg extended release oral tablet (13 sources) Aminoketone Start: 07-08-2024 take 1 tablet by mouth once daily buPROPion 300 mg/24 hours ER Tab 300 mg = 1 tab(s), Oral, Daily, # 90 tab(s), Refills(s) 4, Pharmacy: [facility], 165, cm, 10/04/24 8:40:00 EDT, Height/Length Dosing, 117.9, kg, 10/04/24 8:40:00 EDT, Weight Dosing Start Date: 10/04/24 Status: Ordered Quantity: 90.0 Unit: tab(s) Repeat number: 5 Indications: Major depressive disorder, recurrent, mild; Attention-deficit hyperactivity disorder, predominantly inattentive type; Start: 05-27-2024 take 1 tablet by chin th every twenty-four hours buPROPion 150 mg/24 hours XL Tab 150 mg = 1 tab(s), Oral, q24hr, # 30 tab(s), Refills(s) 5, Pharmacy: [facility], 165, cm, 05/27/24 8:56:00 EST, Height/Length [...] symptoms, # 90 tab(s), Refills(s) 0, Pharmacy: [id number], 165, cm, 06/17/22 19:01:00 EST, Height/Length Dosing, 125, kg, 06/17/22 19:01:00 EST, Weight Dosing Start Date: 06/20/22 Status: Ordered Start: 12-10-2020 take 1 tablet by chin th once daily as needed cetirizine 10 mg oral tablet, chewable 10 mg = 1 tab(s), Oral, Daily, PRN for allergy symptoms, # 90 tab(s), Refills(s) 0, Pharmacy: [id number], 132.7, cm, 11/22/20 15:27:00 EDT, Height/Length Dosing, 165, kg, 11/22/20 15:27:00 EDT, Weight Dosing Start Date: 12/10/20 Status: Ordered ciprofloxacin 500 mg oral tablet (1 source) Quinolone Antimicrobial Start: 06-04-2022 take 1 tablet by mouth twice daily Cipro 500 mg Tab 500 mg = 1 tab(s), Oral, BID, # 14 tab(s), Refills(s) 0, Pharmacy: [id number], 165, cm, 05/30/22 9:05:00 EST, Height/Length Dosing, 125, kg, 05/30/22 9:05:00 EST, Weight Dosing Start Date: 06/04/22 Status: Ordered ciprofloxacin 3 mg/ml / dexamethasone 1 mg/ml otic suspension (2 sources) Corticosteroid, Quinolone Antimicrobial Start: 06-03-2024 End: 06-17-2024 Ciprodex 0.3%-0.1% Susp-Otic 4 drop(s), Otic, BID for 7 day(s), 7.5 mL, Refill(s) 1, [facility], 165, cm, 06/03/24 13:33:00 EST, Height/Length [...] spasm, # 90 tab(s), Refills(s) 2, Pharmacy: [facility], 165, cm, 06/03/24 13:33:00 EST, Height/Length Dosing, 118.7, kg, 06/03/24 13:33:00 EST, Weight Dosing Start Date: 06/03/24 Status: Ordered Quantity: 90.0 Unit: tab(s) Repeat number: 3 Indications: Muscle spasm of back; Start: 09-02-2023 take 1 tablet by chin th three times daily as needed for muscle spasms cyclobenzaprine 10 mg Tab 10 mg = 1 tab(s), Oral, TID, PRN for spasm, # 90 tab(s), Refills(s) 2, Pharmacy: [id number], 165, cm, 09/01/23 15:20:00 EDT, Height/Length Dosing, 118, kg, 09/01/23 15:20:00 EDT, Weight Dosing Start Date: 09/02/23 Status: Ordered Start: 08-21-2021 End: 05-03-2023 take 1 tablet by mouth three times daily as needed for muscle spasms cyclobenzaprine 10 mg Tab 10 mg = 1 tab(s), Oral, TID, PRN for spasm, # 90 tab(s), Refills(s) 2, Pharmacy: [id number], 165, cm, 11/21/21 8:25:00 EDT, Height/Length Dosing, 122.5, kg, 11/21/21 8:25:00 EDT, Weight Dosing Start Date: 11/21/21 Status: Ordered Cymbalta 30 mg Cap-EC (10 sources) Start: 06-19-2020 take 3 capsules by mouth once daily Cymbalta 30 mg Cap-EC 90 mg = 3 cap(s), Oral, Daily, # 270 cap(s), Refills(s) 3, Pharmacy: [id number], 165, cm, 06/14/20 15:31:00 EST, Height/Length Dosing, 122.5, kg, 06/14/20 15:31:00 EST, Weight Dosing Start Date: 06/19/20 Status: Ordered diclofenac sodium 0.01 mg/mg topical gel (6 sources) Nonsteroidal Anti-inflammatory Drug Start: 07-05-2020 diclofenac Top 1% gel 1 justine, Topical, QID for pain, 100 gram, Refill(s) 11, [id number], 165, cm, 06/25/20 7:15:00 EST, Height/Length Dosing, 126.5, kg, 06/25/20 7:15:00 EST, Weight Dosing Start Date: 07/05/20 Status: Ordered Start: 07-05-2020 diclofenac Top 1% gel 1 justine, Topical, QID for pain, 100 gram, Refill(s) 11, [id number], 165, cm, 06/25/20 7:15:00 EST, Height/Length Dosing, 126.5, kg, 06/25/20 7:15:00 EST, Weight Dosing Start Date: 07/05/20 Status: Ordered doxycycline monohydrate 100 mg oral tablet (4 sources) Tetracycline-class Drug Start: 05-20-2022 End: 05-27-2022 take 1 tablet by mouth twice daily doxycycline monohydrate 100 mg oral tablet 100 mg = 1 tab(s), Oral, BID, X 7 day(s), # 14 tab(s), Refills(s) 0, Pharmacy: [id number], 165, cm, 05/20/22 18:06:00 EST, Height/Length Dosing, 124, kg, 05/20/22 18:06:00 EST, Weight Dosing Start Date: 05/20/22 Stop Date: 05/27/22 Status: Ordered Start: 11-28-2021 End: 12-08-2021 take 1 tablet by mouth every twelve hours doxycycline hyclate 100 mg Tab 100 mg = 1 tab(s), Oral, q12hr, X 10 day(s), # 20 tab(s), Refills(s) 0, Pharmacy: [id number], 165, cm, 11/28/21 18:28:00 EDT, Height/Length Dosing, 122, kg, 11/28/21 18:28:00 EDT, Weight Dosing Start Date: 11/28/21 Stop Date: 12/08/21 Status: Ordered DULoxetine 60 mg delayed release oral capsule (14 sources) Serotonin and Norepinephrine Reuptake Inhibitor Start: 10-04-2024 take 1 capsule by mouth once daily Cymbalta 60 mg oral delayed release capsule 60 mg = 1 cap(s), Oral, Daily, # 90 cap(s), Refills(s) 4, Pharmacy: [facility], 165, cm, 10/04/24 8:40:00 EDT, Height/Length Dosing, 117.9, kg, 10/04/24 8:40:00 EDT, Weight Dosing Start Date: 10/04/24 Status: Ordered Quantity: 90.0 Unit: cap(s) Repeat number: 5 Indications: Major depressive disorder, recurrent, mild; Start: 06-19-2020 take 3 capsules by m outh once daily Cymbalta 30 mg Cap-EC 90 mg = 3 cap(s), Oral, Daily, # 270 cap(s), Refills(s) 3, Pharmacy: [id number], 165, cm, 06/14/20 15:31:00 EST, Height/Length Dosing, 122.5, kg, 06/14/20 15:31:00 EST, Weight Dosing Start Date: 06/19/20 Status: Ordered duloxetine 30 mg Cap-DR (20 sources) Start: 08-04-2022 take 1 capsule by mouth twice daily duloxetine 30 mg Cap-DR = 1 cap(s), Oral, BID, (do not crush or chew), # 180 cap(s), Refills(s) 0 Start Date: 08/04/22 Status: Ordered Elderberry preparation (11 sources) Start: 10-14-2023 elderberry Ref ill(s) 0 Start Date: 10/14/23 Status: Ordered Repeat number: 1 Start: 10-14-2023 elderberry Ref ill(s) 0 Start Date: 10/14/23 Status: Ordered Flonase 0.05 mg/inh nasal spray (6 sources) Start: 10-30-2018 take 1 spray(s) nasal route twice daily Flonase 0.05 mg/inh nasal spray 1 spray(s), Nasal, BID, 16 gram, Refill(s) 0, each nostril, Allergy symptoms Start Date: 10/30/18 Status: Ordered FLUoxetine 20 mg oral capsule (20 sources) Serotonin Reuptake Inhibitor Start: 10-04-2024 take 1 capsule by mouth once daily FLUoxetine 20 mg Cap 20 mg = 1 cap(s), Oral, Daily, # 90 cap(s), Refills(s) 4, Pharmacy: [facility], 165, cm, 10/04/24 8:40:00 EDT, Height/Length Dosing, 117.9, kg, 10/04/24 8:40:00 EDT, Weight Dosing Start Date: 10/04/24 Status: Ordered Quantity: 90.0 Unit: cap(s) Repeat number: 5 Indications: Generalized anxiety disorder; Major depressive disorder, recurrent, mild; Start: 05-27-2024 take 1 capsule by mo [facility] once daily FLUoxetine 20 mg Cap 20 mg = 1 cap(s), Oral, Daily, # 30 cap(s), Refills(s) 0, other reason (Rx) Start Date: 05/27/24 Status: Ordered Start: 12-02-2021 take 1 capsule by mo uth once daily FLUoxetine 40 mg Cap 40 [...] Active Start: 05-30-2022 Flonase 0.05 m g/inh [place] 2 spray(s), Nasal, Daily, 16 gram, Refill(s) 5, each nostril, [id number], 165, cm, 05/30/22 9:05:00 EST, Height/Length Dosing, 125, kg, 05/30/22 9:05:00 EST, Weight Dosing Start Date: 05/30/22 Status: Ordered Quantity: 16.0 Unit: g Repeat number: 6 Indications: Nasal congestion; Start: 05-30-2022 Flonase 0.05 m g/inh [place] 2 spray(s), Nasal, Daily, 16 gram, Refill(s) 5, each nostril, [id number], 165, cm, 05/30/22 9:05:00 EST, Height/Length Dosing, 125, kg, 05/30/22 9:05:00 EST, Weight Dosing Start Date: 05/30/22 Status: Ordered Start: 10-30-2018 take 1 spray(s) nasa l route twice daily Flonase 0.05 mg/inh nasal spray 1 spray(s), Nasal, BID, 16 gram, Refill(s) 0, each nostril, Allergy symptoms Start Date: 10/30/18 Status: Ordered folic acid 1 mg oral tablet (20 sources) Start: 02-26-2023 take 1 tablet by mouth once daily folic acid 1 mg Tab 1 mg = 1 tab(s), Oral, Daily, # 90 tab(s), Refills(s) 3, Pharmacy: [facility], 165, cm, 04/04/24 10:00:00 EST, Height/Length Dosing, 116.6, kg, 04/04/24 10:00:00 EST, Weight Dosing Start Date: 04/04/24 Status: Ordered Quantity: 90.0 Unit: tab(s) Repeat number: 4 Indications: Deficiency of other specified B group vitamins; gabapentin 600 mg oral tablet (20 sources) Anti-epilepti c Agent Start: 07-05-2024 gabapentin 600 mg Ta b See Instructions, 0.5 tabs QAM and 2 tabs QHS, # 75 tab(s), Refills(s) 2, Pharmacy: [facility], 165, cm, 07/05/24 8:55:00 EST, Height/Length Dosing, 115.7, kg, 07/05/24 8:55:00 EST, Weight Dosing Start Date: 07/05/24 Status: Ordered Quantity: 75.0 Unit: tab(s) Repeat number: 3 Indications: Radiculopathy, lumbar region; Dorsalgia, unspecified; Start: 11-17-2023 End: 08-11-2024 take 1 tablet by mouth twice daily gabapentin 600 mg Tab 600 mg = 1 tab(s), Oral, BID, X 30 day(s), # 60 tab(s), Refills(s) 2, Pharmacy: [facility], 165, cm, 04/04/24 10:00:00 EST, Height/Length Dosing, 116.6, kg, 04/04/24 10:00:00 EST, Weight Dosing Start Date: 05/13/24 Stop Date: 08/11/24 Status: Ordered Start: 09-02-2023 End: 11-01-2023 take 1 tablet by mouth twice daily gabapentin 600 mg Tab 600 mg = 1 tab(s), Oral, BID, X 30 day(s), # 60 tab(s), Refills(s) 1, Pharmacy: [id number], 165, cm, 09/01/23 15:20:00 EDT, Height/Length Dosing, 118, kg, 09/01/23 15:20:00 EDT, Weight Dosing Start Date: 09/02/23 Stop Date: 11/01/23 Status: Ordered Start: 08-20-2021 End: 07-02-2023 take 11-17 tablets by mouth twice daily gabapentin 600 mg Tab 600 mg = 1 tab(s), Oral, BID, DNF 04-10-23, X 30 day(s), # 60 tab(s), Refills(s) 2, Pharmacy: [id number], 165, cm, 01/16/23 10:39:00 EDT, Height/Length Dosing, 118, kg, 01/16/23 10:39:00 EDT, Weight Dosing Start Date: 04/03/23 Stop Date: 07/02/23 Status: Ordered hydroCHLOROthiazide 25 mg oral tablet (20 sources) Thiazide Diuretic Start: 05-10-2021 take 1 tablet by mouth once daily in the morning hydrochlorothiazide 25 mg Tab 25 mg = 1 tab(s), Oral, qAM, # 90 tab(s), Refills(s) 4, Pharmacy: [facility], 165, cm, 06/03/24 13:33:00 EST, Height/Length Dosing, 118.7, kg, 06/03/24 13:33:00 EST, Weight Dosing Start Date: 06/03/24 Status: Ordered Quantity: 90.0 Unit: tab(s) Repeat number: 5 Indications: Essential (primary) hypertension; hydrOXYzine hydrochloride 50 mg oral tablet (8 sources) Antihistamine Start: 09-12-2022 take 1 tablet by mouth once daily as needed hydrOXYzine HCl (Atarax) 50 MG tablet TAKE 1 TABLET BY MOUTH EVERY DAY AT NOON NEEDED 09/12/2022 Active ibuprofen 800 mg oral tablet (20 sources) Nonsteroidal Anti-inflammator y Drug Start: 08-21-2021 take 1 tablet by mouth twice daily as needed for pain ibuprofen 800 mg Tab 800 mg = 1 tab(s), Oral, BID, PRN as needed for pain, # 60 tab(s), Refills(s) 0, Pharmacy: [id number], 165, cm, 11/21/21 8:25:00 EDT, Height/Length Dosing, 122.5, kg, 11/21/21 8:25:00 EDT, Weight Dosing Start Date: 11/21/21 Status: Ordered Quantity: 60.0 Unit: tab(s) Repeat number: 1 ketotifen 0.25 mg/ml ophthalmic solution (20 sources) Histamine-1 Receptor Inhibitor Start: 05-20-2022 Zaditor 0.025% ophthalmic solution 1 drop(s), Eye-Both, q8hr, 7.5 mL, Refill(s) 0, [id number], 165, cm, 05/20/22 18:06:00 EST, Height/Length [...] Daily, # 90 tab(s), Refills(s) 4, Pharmacy: [id number], 165, cm, 11/26/22 15:24:00 EDT, Height/Length Dosing, 121.5, kg, 11/26/22 15:24:00 EDT, Weight Dosing Start Date: 11/26/22 Status: Ordered meclizine hydrochloride 12.5 mg oral tablet (20 sources) Antiemetic Start: 05-30-2022 take 1 tablet by mouth three times daily as needed for dizziness meclizine 12.5 mg Tab 12.5 mg = 1 tab(s), Oral, TID, PRN for dizziness, # 30 tab(s), Refills(s) 3, Pharmacy: [id number], 165, cm, 05/30/22 9:05:00 EST, Height/Length Dosing, 125, kg, 05/30/22 9:05:00 EST, Weight Dosing Start Date: 05/30/22 Status: Ordered Quantity: 30.0 Unit: tab(s) Repeat number: 4 Indications: Dizziness and giddiness; Start: 01-15-2020 take 1 tablet by chin th three times daily as needed for dizziness meclizine 25 mg Tab 25 mg = 1 tab(s), Oral, TID, PRN for dizziness, # 60 tab(s), Refills(s) 0, Pharmacy: [id number], 165, cm, 01/04/20 7:16:00 EDT, Height/Length Dosing, 123.4, kg, 01/04/20 7:16:00 EDT, Weight Dosing Start Date: 01/15/20 Status: Ordered metFORMIN hydrochloride 500 mg oral tablet (20 sources) Biguanide Start: 08-04-2022 take 1 tablet by mouth twice daily metformin 500 mg Tab 500 mg = 1 tab(s), Oral, BID, # 90 tab(s), Refills(s) 4, Pharmacy: [id number], 165, cm, 11/09/23 16:50:00 EDT, Height/Length Dosing, 116.7, kg, 11/09/23 16:50:00 EDT, Weight Dosing Start Date: 12/31/23 Status: Ordered Quantity: 90.0 Unit: tab(s) Repeat number: 5 Indications: Body mass index [BMI] 40.0-44.9, adult; Start: 04-02-2020 take 1 tablet by chin th twice daily metformin 500 mg oral tablet 500 mg = 1 tab(s), Oral, BID, # 60 tab(s), Refills(s) 11, [id number], cm, 03/29/20 9:07:00 EST, Height/Length Dosing, 120, kg, 03/29/20 9:07:00 EST, Weight Dosing Start Date: 04/02/20 Status: Ordered methylPREDNISolone 4 mg oral tablet (2 sources) Corticosteroid Start: 06-30-2022 Medrol Dosepack 4 mg Tab = 1 packet(s), Oral, As Directed, as directed on package labeling, # 21 tab(s), Refills(s) 1, Pharmacy: [id number], 162, cm, 06/30/22 11:40:00 EST, Height/Length Dosing, 126, kg, 06/30/22 11:39:00 EST, Weight Dosing Start Date: 06/30/22 Status: Ordered 24 hr metoprolol succinate 25 mg extended release oral tablet (12 sources) beta-Adrenergic Kaveh Start: 03-20-2022 take 1 tablet by mouth once daily metoprolol 25 mg ER Tab 25 mg = 1 tab(s), Oral, Daily, # 90 tab(s), Refills(s) 1, Pharmacy: [id number], 165, cm, 01/29/22 10:54:00 EDT, Height/Length Dosing, 123, kg, 12/23/21 9:43:00 EDT, Weight Dosing Start Date: 03/20/22 Status: Ordered Start: 12-24-2020 End: 12-19-2021 take 1 tablet by mouth once daily metoprolol 25 mg ER Tab 25 mg = 1 tab(s), Oral, Daily, X 90 day(s), # 90 tab(s), Refills(s) 3, Pharmacy: [facility] #[id number], 132.7, cm, 11/22/20 15:27:00 EDT, Height/Length Dosing, 165, kg, 11/22/20 15:27:00 EDT, Weight Dosing Start Date: 12/24/20 Stop Date: 12/19/21 Status: Ordered montelukast 10 mg oral tablet (20 sources) Leukotriene Receptor Antagonist Start: 07-22-2022 take 1 tablet by mouth once daily in the evening Singulair 10 mg Tab 10 mg = 1 tab(s), Oral, qPM, # 90 tab(s), Refills(s) 4, Pharmacy: [facility], 165, cm, 06/03/24 13:33:00 EST, Height/Length Dosing, 118.7, kg, 06/03/24 13:33:00 EST, Weight Dosing Start Date: 06/03/24 Status: Ordered Quantity: 90.0 Unit: tab(s) Repeat number: 5 Indications: Allergic rhinitis due to pollen; Mucinex D Max Strength oral tablet, extended [...] justine, Topical, TID, 15 gm, Refill(s) 0, [id number], 165, cm, 08/29/21 [...] day(s), # 10 cap(s), Refills(s) 0, Pharmacy: [facility] #[id number], 165, cm, 09/01/23 15:20:00 EDT, Height/Length Dosing, 118, kg, 09/01/23 15:20:00 EDT, Weight Dosing Start Date: 09/01/23 Stop Date: 09/06/23 Status: Ordered pantoprazole 40 mg delayed release oral tablet (20 sources) Proton Pump Inhibitor Start: 05-28-2022 take 1 tablet by mouth once daily Protonix 40 mg Tab-DR 40 mg, Oral, Daily, # 90 tab(s), Refills(s) 4, Pharmacy: [facility], 165, cm, 08/12/24 9:30:00 EDT, Height/Length Dosing, 115.3, kg, 08/12/24 9:30:00 EDT, Weight Dosing Start Date: 08/17/24 Status: Ordered Quantity: 90.0 Unit: tab(s) Repeat number: 5 Start: 06-26-2021 take 1 tablet by chin th once daily Protonix 40 mg Tab-DR 40 mg, Oral, Daily, # 90 tab(s), Refills(s) 3, Pharmacy: [id number], 165, cm, 04/29/21 10:14:00 EST, Height/Length Dosing, 136.3, kg, 04/30/21 9:22:00 EST, Weight Dosing Start Date: 06/26/21 Status: Ordered phentermine hydrochloride 37.5 mg oral tablet (20 sources) Sympathomimetic Amine Anorectic Start: 10-04-2024 take 1 tablet by mouth once daily Adipex-P 37.5 mg Tab 37.5 mg = 1 tab(s), Oral, Daily, # 30 tab(s), Refills(s) 0, Pharmacy: [facility], 165, cm, 10/04/24 8:40:00 EDT, Height/Length Dosing, 117.9, kg, 10/04/24 8:40:00 EDT, Weight Dosing Start Date: 10/04/24 Status: Ordered Quantity: 30.0 Unit: tab(s) Repeat number: 1 Indications: Body mass index [BMI] 40.0-44.9, adult; Start: 01-16-2023 phentermine 37 .5 mg Tab 37.5 mg = 1 tab(s), Oral, Daily, BMI 43 #6 30 day supply before breakfast, # 30 tab(s), Refills(s) 0, Pharmacy: [id number], 165, cm, 01/16/23 10:39:00 EDT, Height/Length Dosing, 118, kg, 01/16/23 10:39:00 EDT, Weight Dosing Start Date: 01/16/23 Status: Ordered Start: 12-09-2022 phentermine 37 .5 mg Tab 37.5 mg = 1 tab(s), Oral, Daily, BMI 43 #4 30 day supply before breakfast, # 30 tab(s), Refills(s) 0, Pharmacy: [facility]/pharmacy #[id number], 165, cm, 12/09/22 14:54:00 EDT, Height/Length Dosing, 118, kg, 12/09/22 14:54:00 EDT, Weight Dosing Start Date: 12/09/22 Status: Ordered Start: 10-03-2022 phentermine 37 .5 mg Tab 37.5 mg = 1 tab(s), Oral, Daily, BMI 44 #3 30 day supply before breakfast, # 30 tab(s), Refills(s) 0, Pharmacy: [facility]/pharmacy #[id number], 165, cm, 10/03/22 8:31:00 EDT, Height/Length Dosing, 119.8, kg, 10/03/22 8:31:00 EDT, Weight Dosing Start Date: 10/03/22 Status: Ordered Start: 08-04-2022 End: 09-03-2022 phentermine 37.5 mg Tab 37.5 mg = 1 tab(s), Oral, Daily, BMI 44 #2 30 day supply before breakfast, # 30 tab(s), Refills(s) 0, Pharmacy: [facility]/pharmacy #[id number], 165, cm, 09/04/22 8:33:00 EDT, Height/Length Dosing, 120.3, kg, 09/04/22 8:33:00 EDT, Weight Dosing Start Date: 09/04/22 Status: Ordered polymyxin b 11470 unt/ml / trimethoprim 1 mg/ml ophthalmic solution (1 source) Dihydrofolate Reductase Inhibitor Antibacterial, Polymyxin-class Antibacterial Start: 05-20-2022 End: 05-27-2022 Polytrim 10 mL Soln-Opth 1 drop(s), OPTH, q3hr for 7 day(s), 10 mL, Refill(s) 0, [facility]pharmacy #[id number], 165, cm, 05/20/22 18:06:00 EST, Height/Length Dosing, 124, kg, 05/20/22 18:06:00 EST, Weight Dosing Start Date: 05/20/22 Stop Date: 05/27/22 Status: Ordered predniSONE 20 mg oral tablet (3 sources) Start: 09-01-2023 End: 09-08-2023 take 1 tablet by mouth once daily predniSONE 20 mg Tab 20 mg = 1 tab(s), Oral, Daily, X 7 day(s), # 7 tab(s), Refills(s) 0, [id number], 165, cm, 09/01/23 15:20:00 EDT, Height/Length Dosing, 118, kg, 09/01/23 15:20:00 EDT, Weight Dosing Start Date: 09/01/23 Stop Date: 09/08/23 Status: Ordered Start: 05-30-2022 End: 06-04-2022 take 2 tablets by mouth once daily predniSONE 20 mg Tab 40 mg = 2 tab(s), Oral, Daily, X 5 day(s), # 10 tab(s), Refills(s) 0, [id number], 165, cm, 05/30/22 9:05:00 EST, Height/Length Dosing, 125, kg, 05/30/22 9:05:00 EST, Weight Dosing Start Date: 05/30/22 Stop Date: 06/04/22 Status: Ordered ProAir HFA 90 mcg/inh inhalation aerosol (1 source) Start: 06-03-2021 take 2 puff(s) by inhalation every four hours for wheezing ProAir HFA 90 mcg/inh inhalation aerosol 2 puff(s), Inhalation, q4hr for wheezing, 8.5 gram, Refill(s) 6, [id number], 165, cm, 04/29/21 10:14:00 EST, Height/Length Dosing, 136.3, kg, 04/30/21 9:22:00 EST, Weight Dosing Start Date: 06/03/21 Status: Ordered 24 hr propranolol hydrochloride 60 mg extended release oral capsule (20 sources) beta-Adrenergi c Kaveh Start: 06-03-2024 take 1 capsule by mouth once daily propranolol 60 mg Cap-ER 60 mg = 1 cap(s), Oral, Daily, # 90 cap(s), Refills(s) 4, Pharmacy: [facility] #37, 165, cm, 06/03/24 13:33:00 EST, Height/Length Dosing, 118.7, kg, 06/03/24 13:33:00 EST, Weight Dosing Start Date: 06/03/24 Status: Ordered Quantity: 90.0 Unit: cap(s) Repeat number: 5 Indications: Essential (primary) hypertension; Palpitations; Start: 11-26-2022 take 1 capsule by mo ut once daily propranolol 60 mg Cap-ER 60 mg = 1 cap(s), Oral, Daily, # 90 cap(s), Refills(s) 4, Pharmacy: [facility]/pharmacy #6173, 165, cm, 11/26/22 15:24:00 EDT, Height/Length Dosing, 121.5, kg, 11/26/22 15:24:00 EDT, Weight Dosing Start Date: 11/26/22 Status: Ordered Start: 11-26-2022 take 1 capsule by [facility] every twenty-four hours propranolol LA (Inderal LA) 60 MG 24 hr capsule Take 60 mg by mouth. 11/26/2022 Active Start: 06-30-2022 propranolol Re fills(s) 0 Start Date: 06/30/22 Status: Ordered Protonix 40 mg Tab-DR (1 source) Start: 06-26-2021 take 1 tablet by mouth once daily Protonix 40 mg Tab-DR 40 mg, Oral, Daily, # 90 tab(s), Refills(s) 3, Pharmacy: [facility]/pharmacy #[id number], 165, cm, 04/29/21 10:14:00 EST, Height/Length Dosing, 136.3, kg, 04/30/21 9:22:00 EST, Weight Dosing Start Date: 06/26/21 Status: Ordered rosuvastatin calcium 40 mg oral tablet (20 sources) HMG-CoA Reductase Inhibitor Start: 11-01-2021 take 1 tablet by mouth once daily at bedtime rosuvastatin 40 mg Tab 40 mg, Oral, Once a day (at bedtime), # 90 tab(s), Refills(s) 3, Pharmacy: [facility]/pharm[facility] #[id number], 165, cm, 08/29/21 19:07:00 EDT, Height/Length Dosing, 128, kg, 08/29/21 19:07:00 EDT, Weight Dosing Start Date: 11/01/21 Status: Ordered Start: 07-19-2020 take 1 tablet by chin once daily at bedtime rosuvastatin 40 mg Tab 40 mg, Oral, Once a day (at bedtime), # 90 tab(s), Refills(s) 3, Pharmacy: [facility]/pharmacy #6173, 165, cm, 06/25/20 7:15:00 EST, Height/Length [...] day(s), # 21 tab(s), Refills(s) 0, Pharmacy: [facility]/pharm[facility] #[id number], 165, cm, 11/28/21 18:28:00 EDT, Height/Length Dosing, 122, kg, 11/28/21 18:28:00 EDT, Weight Dosing Start Date: 11/28/21 Stop Date: 12/05/21 Status: Ordered Ventolin HFA 90 mcg/inh Aerosol (15 sources) Start: 06-07-2021 take 2 puff(s) by inhalation every four hours for wheezing Ventolin HFA 90 mcg/inh Aerosol 2 puff(s), Inhalation, q4hr for wheezing, 18 gram, Refill(s) 3, [facility]/pharmacy #[id number], 165, cm, 04/29/21 10:14:00 EST, Height/Length Dosing, 136.3, kg, 04/30/21 9:22:00 EST, Weight Dosing Start Date: 06/07/21 Status: Ordered vitamin b12 1 mg/ml injectable solution (20 sources) Vitamin B12 Start: 08-29-2024 inject 1000 ug by intramuscular injection every other week cyanocobalamin 1000 mcg/mL Inj 1,000 mcg = 1 mL, IntraMuscular, q2wk, # 10 mL, Refills(s) 2, Pharmacy: [facility] #37, 165, cm, 08/29/24 10:36:00 EDT, Height/Length Dosing, 118.1, kg, 08/29/24 10:36:00 EDT, Weight Dosing Start Date: 08/29/24 Status: Ordered Quantity: 10.0 Unit: mL Repeat number: 3 Indications: Deficiency of other specified B group vitamins; Start: 05-09-2024 inject 1 mL by intra muscular injection every month cyanocobalamin (Vitamin B-12) 1000 MCG/ML injection Inject 1 mL IntraMuscular once monthly 05/09/2024 Active Start: 04-04-2024 inject 1000 ug by in tramuscular injection every month cyanocobalamin 1000 mcg/mL Inj 1,000 mcg = 1 mL, IntraMuscular, qMonth, # 1 kit(s), Refills(s) 1, Pharmacy: [facility] #37, 165, cm, 04/04/24 10:00:00 EST, Height/Length Dosing, 116.6, kg, 04/04/24 10:00:00 EST, Weight Dosing Start Date: 04/04/24 Status: Ordered Start: 02-26-2023 cyanocobalamin 1000 mcg/mL Inj 1,000 mcg = 1 mL, IntraMuscular, qMonth, Also dispense 3 ml syringes 25 gauge 1 needle, quantity sufficient for injections., # 10 mL, Refills(s) 1, Pharmacy: [facility]/pharmacy #[id number], 165, cm, 01/16/23 10:39:00 EDT, Height/Length Dosing, 118, kg, 01/16/23 10:39:00 EDT, Weight Dosing Start Date: 02/26/23 Status: Ordered Quantity: 10.0 Unit: mL Repeat number: 2 Indications: Deficiency of other specified B group vitamins; Start: 02-26-2023 cyanocobalamin 1000 mcg/mL Inj 1,000 mcg = 1 mL, IntraMuscular, qMonth, Also dispense 3 ml syringes 25 gauge 1 needle, quantity sufficient for injections., # 10 mL, Refills(s) 1, [id number], 165, cm, 01/16/23 10:39:00 EDT, Height/Length Dosing, 118, kg, 01/16/23 10:39:00 EDT, Weight Dosing Start Date: 02/26/23 Status: Ordered Vitamin B12 1000 mcg Tab (20 sources) Start: 10-11-2020 take 1 tablet by mouth once daily Vitamin B12 1000 mcg Tab 1,000 mcg, Oral, Daily, # 90 tab(s), Refills(s) 1, [id number], 165, cm, 10/11/20 14:51:00 EDT, Height/Length Dosing, 130, kg, 09/19/20 16:43:00 EDT, Weight Dosing Start Date: 10/11/20 Status: Ordered Completed/Discontinued Medications Medication Drug Class(es) Dates Sig (Normalized) Sig (Original) potassium chloride 10 meq extended release oral capsule (20 sources) Start: 12-09-2022 take 1 capsule by mouth once daily potassium chloride 10 mEq Cap-ER 10 mEq = 1 cap(s), Oral, Daily, # 90 cap(s), Refills(s) 4, Pharmacy: [facility] #37, 165, cm, 10/04/24 8:40:00 EDT, Height/Length Dosing, 117.9, kg, 10/04/24 8:40:00 EDT, Weight Dosing Start Date: 10/04/24 Status: Ordered Quantity: 90.0 Unit: cap(s) Repeat number: 5 Indications: Palpitations; Hypokalemia; psyllium 525 mg oral capsule (3 sources) Start: 06-14-2020 take 8 capsules by mouth once daily Metamucil 525 mg oral capsule 1,050 mg = 2 cap(s), Oral, Daily, Take 2 hour apart from the other medications with at least 8 ounces of water, # 160 cap(s), Refills(s) 1, Pharmacy: [id number], 165, cm, 06/14/20 12:39:00 EST, Height/Length [...] stress, unspecified] Onset: 10-05-19 Chronic Administrative/social admission (6 sources) Patient encounter status; Translations: [Persons encountering [...] sources) Pulmonary emphysema; Translations: [Emphysema, unspecified] Onset: 12-04-19 22 10-27-2014 Chronic Chronic obstructive pulmonary disease and bronchiectasis (7 sources) Bronchitis; Translations: [Bronchitis, not specified as acute or chronic] Onset: 05-20-20 Episodic Chronic ulcer of skin (20 sources) Pressure ulcer of hip 02-18-2019 Chronic Coagulation and hemorrhagic disorders (20 sources) Petechiae of skin 10-23-2022 Episodic Conditions associated with dizziness or vertigo (16 sources) Vertigo; Translations: [Dizziness and giddiness] Onset: 12-03-19 22 10-21-2018 Episodic Deficiency and other anemia (20 sources) Anemia; Translations: [Other specified anemias] Onset: 12-10-1906-28-2019 Episodic Deficiency and other anemia (20 sources) Microcytic anemia 08-09-2019 Episodic Deficiency and other anemia (15 sources) Iron deficiency anemia; Translations: [Iron deficiency [...] orthostatic hypotension 10-21-2018 Episodic Other circulatory disease (6 sources) Elevated blood pressure 08-19-2024 Episodic Other [...] Episodic Other ear and sense organ disorders (10 sources) Pain of ear structure 06-03-2024 Episodic Other endocrine disorders (20 sources) Polycystic ovaries 10-21-2018 Chronic Other endocrine disorders (20 sources) Polycystic ovary syndrome; Translations: [Polycystic ovarian syndrome] Onset: 08-05-19 Chronic Other female genital disorders (20 sources) Abnormal uterine bleeding; Translations: [Abnormal uterine and vaginal bleeding, unspecified] 10-27-2019 Chronic Other female genital disorders (9 sources) Pain in female genitalia on intercourse; Translations: [Unspecified dyspareunia] Onset: 04-21-09-12-2024 Chronic Other female genital disorders (20 sources) Vaginal odor 10-15-2019 Episodic Other gastrointestinal disorders (20 sources) Chronic idiopathic constipation 11-28-2019 Chronic Other gastrointestinal disorders (15 sources) Abdominal bloating 11-28-2019 Episodic Other lower respiratory disease (20 sources) Dyspnea 01-17-2021 Episodic Other lower respiratory disease (16 sources) Wheezing; Translations: [Wheezing] Onset: 11-09-19 Episodic [...] Chronic Other nutritional; endocrine; and metabolic disorders (6 sources) Obesity 08-19-2024 Chronic Other nutritional; endocrine; [...] Onset: 06-03-1910-21-2018 Chronic Other upper respiratory infections (20 sources) Chronic sinusitis; Translations: [Chronic sinusitis, unspecified] [...] 02-18-2019 Chronic Unclassified (20 sources) Exposure to 2018 novel coronavirus 11-14-2019 Unclassified (5 sources) First encounter by subject 05-27-2024 Unclassified (6 sources) Patient encounter status 08-19-2024 Urinary tract infections (20 sources) Hemorrhagic cystitis 03-15-2021 Episodic Viral infection (1 source) Herpes zoster without complication; Translations: [Zoster without complications] Onset: 11-29-19 Episodic Viral infection (19 sources) Disease caused by 2018-nCoV 06-03-2021 Past or Other Problems Problem Classification [...] Test Name Value Interpretation Reference Range Facility PATHOLOGY REQUEST FOR LAB CO RPon 10-18-2024 PATHOLOGY REQUEST FOR LAB MILDRED [facility] Comment on above: See report. Scanned copy available in EMR. [facility] ALL BASIC METABOLIC PANELon 10-10-2024 Anion gap [Moles/Vol] 12.1 mmol/L [facility] Calcium [Mass/Vol] 9.9 mg/dL 8.5 - 10. 1 mg/dL [facility] Chloride [Moles/Vol] 102 mmol/L 98 - 10 7 mmol/L [facility] CO2 [Moles/Vol] 29.3 mmol/L 21.0 - 32.0 mmol/L [facility] Creatinine [Mass/Vol] 1 mg/dL 0.55 - 1.02 mg/dL [facility] GFR/1.73 sq M.predicted CKD-EPI (S/P/Bld) [Vol rate/Area] >60 >=60 mL/min/1.[address] [facility] Glucose [Mass/Vol] 104 mg/dL 74 - 106 mg/dL [facility] Interpretation and review of laboratory results Abnormal [facility] Potassium [Moles/Vol] 3.4 mmol/L Low 3.5 - 5.1 mmol/L [facility] Sodium [Moles/Vol] 140 mmol/L 136 - 145 mmol/L [facility] EGFR-NON AF [place] 60 >=60 mL/min/1.[address] [facility] Urea nitrogen [Mass/Vol] 14 mg/dL 7.0 - 18.0 mg/dL [facility] Urea nitrogen/Creatinine [Mass ratio] 14 mg/mg [facility]INISY[facility] ECG 12-LEADon 10-10-2024 [place] [id number] Electrocardiograph Report Signed Patient: KAYLA MONTANA MR#: [id number] : 1975 Acct:[id number] Age/Sex: 48 / F ADM Date: 10/10/24 Loc: [facility] Attending Dr: Dada Perkins D.O. Ordering Physician: Dada Perkins D.O. Date of Service: 10/10/24 Procedure(s): ECG 12 lead Accession Number(s): [id number] cc: [facility] Test Date: 2024-10-10 Pat Name: KAYLA MONTANA Department: Room: - Gender: Female Director Building: : 1975 Requested By: DADA PERKINS Order Number: [id number] Reading MD: MARIELENA RASMUSSEN M.D. Measurements Intervals [place] Rate: 65 P: -9 NH: 181 QRS: 10 QRSD: 94 T: 54 QT: 398 QTc: 416 Interpretive Statements SINUS RHYTHM INCOMPLETE RIGHT BUNDLE BRANCH BLOCK [90+ ms QRS DURATION, TERMINAL R IN V1/V2, 40+ ms S IN I/aVL/V4/V5/V6] Compared to ECG 03/31/2023 09:54:31 No significant changes Electronically Signed On 10-10-2024 17:52:14 EDT by MARIELENA RASMUSSEN M.D. Dictated By: MARIELENA RASMUSSEN Signed By: 10/10/24 9636 DD/ 0952 TD/TT: Supervisor Webbing: [facility] RadiologyElvia MD - 10/11/[address] [address] Electrocardiograph Report Signed Patient: KAYLA MONTANA MR#: [id number] : 1975 Acct:[id number] Age/Sex: 48 / F ADM Date: 10/10/24 Loc: PST Attending Dr: Dada Perkins D.O. Ordering Physician: Dada Perkins D.O. Date of Service: 10/10/24 Procedure(s): ECG 12 lead Accession Number(s): [id number] cc: [facility] Test Date: 2024-10-10 Pat Name: KAYLA MONTANA Department: Room: - Gender: Female Director Building: : 1975 Requested By: DADA PERKINS Order Number: [id number] Reading MD: MARIELENA RASMUSSEN M.D. Measurements Intervals [place] Rate: 65 P: -9 NH: 181 QRS: 10 QRSD: 94 T: 54 QT: 398 QTc: 416 Interpretive Statements SINUS RHYTHM INCOMPLETE RIGHT BUNDLE BRANCH BLOCK [90+ ms QRS DURATION, TERMINAL R IN V1/V2, 40+ ms S IN I/aVL/V4/V5/V6] Compared to ECG 03/31/2023 09:54:31 No significant changes Electronically Signed On 10-10-2024 17:52:14 EDT by MARIELENA RASMUSSEN M.D. Dictated By: MARIELENA RASMUSSEN Signed By: 10/10/24 175 DD/ 0952 TD/TT: Supervisor Webbing: [facility] Radiology Study observation (narrative) [facility] ECG 12-LEADOrdered By: Radio logist Radiology on 10-10-2024 [facility] Work Phone: XR CHEST 2Von 10-10-2024 [place] [address] XRay Report Signed Patient: KAYLA MONTANA MR#: [id number] : 1975 Acct:[id number] Age/Sex: 48 / F ADM Date: 10/10/24 Loc: PST Attending Dr: Dada Perkins D.O. Ordering Physician: Dada Perkins D.O. Date of Service: 10/10/24 Procedure(s): XR chest 2V Accession Number(s): [id number] cc: Serafin Roberson D.O.; Dada Perkins D.O. The [address] [address] Patient Name: KAYLA MONTANA MRN: [facility]:[id number] date: 1975 Sex: F Assigned Patient [facility]: [facility] Current Patient Location: [facility] Accession/Order Number: [id number] Exam Date: 10/10/2024 10:20 Report Date: 10/10/2024 10:22 At the request of: DADA PERKINS DO Procedure: XR chest 2V Chest 2 views CLINICAL HISTORY: Preop exam COMPARISON: Chest 03/31/2023 FINDINGS: Heart normal in size. Lungs are clear. No free air. XR/XR chest 2V IMPRESSION: NO ACUTE CARDIOPULMONARY ABNORMALITY. Impression dictated by: Tristin Burris Jr., D.O. 10/10/2024 10:22 AM Dictation Location: [place] [address] Electronically authenticated by: [id number] Y Date: 10/10/2024 10:22 Dictated By: Tristin Burris M.D. Signed By: 10/10/24 1025 DD/ 1022 TD/TT: Supervisor Webbing: [facility] RadiologyDerekogjuve burns MD - 10/10/2024 [place] [address] XRay Report Signed Patient: KAYLA MONTANA MR#: [id number] : 1975 Acct:[id number] Age/Sex: 48 / F ADM Date: 10/10/24 Loc: PST Attending Dr: Dada Perkins D.O. Ordering Physician: Dada Perkins D.O. Date of Service: 10/10/24 Procedure(s): XR chest 2V Accession Number(s): [id number] cc: Serafin Roberson D.O.; Dada Perkins D.O. The [address] [address] Patient Name: KAYLA MONTANA MRN: [facility]:[id number] date: 1975 Sex: F Assigned Patient Location: [facility] Current Patient Location: [facility] Accession/Order Number: [id number] Exam Date: 10/10/2024 10:20 Report Date: 10/10/2024 10:22 At the request of: DADA PERKINS DO Procedure: XR chest 2V Chest 2 views CLINICAL HISTORY: Preop exam COMPARISON: Chest 03/31/2023 FINDINGS: Heart normal in size. Lungs are clear. No free air. XR/XR chest 2V IMPRESSION: NO ACUTE CARDIOPULMONARY ABNORMALITY. Impression dictated by: Tristin Burris Jr., D.O. 10/10/2024 10:22 AM Dictation Location: [place] [address] Electronically authenticated by: [id number] Y Date: 10/10/2024 10:22 Dictated By: Tristin Burris M.D. Signed By: 10/10/24 1025 DD/ 1022 TD/TT: Supervisor [facility]bbing[facility] Study observation (narrative) [facility] XR CHEST 2VOrdered By: ACHICA Radiology on 10-10-2024 [facility] Work Phone: Ambulatory Visit Summaryon 0 10-04-2024 Ambulatory Visit [...] Tab) elderberry fluticasone nasal (Flonase 0.05 mg/inh [place]) folic acid (folic acid 1 mg Tab) [...] PM EDT With: Serafin Roberson DO Where: [facility] [address] [place] [address]- Thursday 11:00 AM EDT With: Augustus MEDEL, [...] days When you see providers outside of [facility], please request that they send office visit notes every time you're seen there - this helps us take better care of you F/u 3 months Where: [address] [place] [address] [id number] Medications What How Much When Why Instructions Changed duloxetine (Cymbalta 60 mg oral delayed release capsule) 1 Capsules By Mouth Every day Mild recurrent major depression Pickup at [facility] Unchanged buPROPion (buPROPion 300 mg/ 24 hours ER Tab) 1 Tablets By Mouth Every day ADHD (attention deficit hyperactivity disorder), inattentive type Mild recurrent major depression Pickup at [facility] #37 Unchanged fluoxetine (FLUoxetine 20 mg Cap) 1 Capsules By Mouth Ev (more content not included)... Normal [facility] Family Medicine Office/Clini c Noteon 10-04-2024 Family [...] home - 1 child (who lives in [place]) not speaking to her. That child's spouse remains in contact with the patient and her . 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 Perkins Psych - Dr. Polly Schaffer Urology - unsure of name - has prolapsed bladder for the past 6 years, needs surgery to fix but must lose weight before the surgery To do list: read Driven to Distraction [facility] staff / Chief Complaint confirmed with the [...] August 29, 2024 - Heme/Onc - Dr. Jeffy Coffman LABS Cr/eGFR: eGFR: 79 mL/min/1.73 m2 (08/26/24 [...] books Emphasized aga (more content not included)... [facility] Comment on above: Result Comment: Elec tronically Signed By: Serafin Roberson DO\Date and Time Signed: 10/04/24 09:11 EDT Provider Letteron 10-04-2024 Provider Letter Provider Letter October 04, 2024 KAYLA ORGAN [address] [place] [phone] : 1975 To Whom It May Concern, Please excuse above patient from work from time missed this morning. In late due to an appointment Date of Illness: From: 10/04/2024 To: 10/04/2024 May Return to Work On: 10/04/2024 Sincerely, Family Medicine [place] [address] [place] [address] [facility] Endometrial biopsyon 025 Norma Zapata LPN [...] collected: specimen collected and sent to pathology [facility] Provider Letteron 09-01-2024 Provider Letter Provider Letter September 01, 2024 KAYLA ORGAN [address] [place] [phone] : 1975 Dear _ , We have been trying to reach you with no success. It is important that you return our call regarding your recent lab upon receiving this letter. Also, at the time of your call, please provide us with your current information. Thank you for your prompt attention to this matter. Sincerely, Family Medicine [place] [address] [place] [address] [facility] ED Pat Eduon 08-29-2024 ED Pat [...] seconds. You may also use a hand refining still operator. 2. Wipe the injection site with an [...] the way (more content not included)... Normal [facility] CBC w/ Auto Diffon 5 Basophils/100 WBC (Bld) 1.0 % Normal 0.0-2.0 [facility] Comment on above: Performed By: #### 2 [id number] #### [facility] [address] [place] [address] Basophils/Leukocytes Auto (Bld) [Pure # fraction] 0.1 E9/L Normal 0.0-0.2 [facility] Comment on above: Performed By: #### 2 [id number] #### [facility] [address] [place] [address] Eosinophils (Bld) [#/Vol] 0.2 E9/L Normal 0.0-0.5 [facility] Comment on above: Performed By: #### 2 [id number] #### [facility] [address] [place] [address] Eosinophils/100 WBC (Bld) 2.2 % Normal 0.0-8.0 [facility] Comment on above: Performed By: #### 2 [id number] #### [facility] [address] [place] [address] Erythrocyte distribution width (RBC) [Ratio] 16.0 % High 10.9-14.2 [facility] Comment on above: Performed By: #### 2 [id number] #### [facility] [address] [place] [address] Hematocrit (Bld) [Volume fraction] 37.5 % Normal 34.0-46.0 [facility] Comment on above: Performed By: #### 2 [id number] #### [facility] [address] [place] [address] Hemoglobin (Bld) [Mass/Vol] 12.7 g/dL Normal 12.0-16.0 [facility] Comment on above: Performed By: #### 2 [id number] #### [facility] [address] [place] [address] Lymphocytes (Bld) [#/Vol] 1.7 E9/L Normal 1.0-4.0 [facility] Comment on above: Performed By: #### 2 [id number] #### [facility] [address] [place] [address] Lymphocytes/100 WBC (Bld) 23.9 % Normal 14.0-50.0 [facility] Comment on above: Performed By: #### 2 [id number] #### [facility] [address] [place] [address] MCH (RBC) [Entitic mass] 29.4 pg Normal 27.0-34.0 [facility] Comment on above: Performed By: #### 2 [id number] #### [facility] [address] [place] [address] MCHC (RBC) [Mass/Vol] 33.8 g/dL Normal 31.4-36.0 [facility] Comment on above: Performed By: #### 2 [id number] #### [facility] [address] [place] [address] MCV (RBC) [Entitic vol] 87.0 fL Normal 80.0-100.0 [facility] Comment on above: Performed By: #### 2 515392 #### [facility] [address] [place] [address] Monocytes (Bld) [#/Vol] 0.3 E9/L Normal 0.2-1.0 [facility] Comment on above: Performed By: #### 2 [id number] #### [facility] [address] [place] [address] Neutrophils (Bld) [#/Vol] 5.0 E9/L Normal 2.0-7.5 [facility] Comment on above: Performed By: #### 2 [id number] #### [facility] [address] [place] [address] Neutrophils/100 WBC (Bld) 68.2 % Normal 36.0-75.0 [facility] Comment on above: Performed By: #### 2 [id number] #### [facility] [address] [place] [address] Platelet mean volume (Bld) [Entitic vol] 8.9 fL Normal 6.4-10.8 [facility] Comment on above: Performed By: #### 2 [id number] #### [facility] [address] [place] [address] Platelets (Bld) [#/Vol] 367.0 E9/L Normal 150.0-500. 0 [facility] Comment on above: Performed By: #### 2 [id number] #### [facility] [address] [place] [address] RBC (Bld) [#/Vol] 4.3 E12/L Normal 4.3-5.9 [facility] Comment on above: Performed By: #### 2 [id number] #### [facility] [address] [place] [address] WBC corrected for nucl RBC Auto (Bld) [#/Vol] 7.3 E9/L Normal 4.0-11.0 [facility] Comment on above: Performed By: #### 2 [id number] #### [facility] [address] [place] [address] CHEMISTRYOrdered By: Tarah Landon on 08-26-2024 Albumin [...] (Bld) [Mass fraction] 5.2 % Normal <=5.9% [facility] ChemAutoSS CHEMISTRYOrdered By: Adonay Almeida on 08-26-2024 [...] 08-26-2024 Creatinine [Mass/Vol] 0.9 mg/dL Normal 0.5-1.3 [facility] Comment on above: Performed By: #### 2 [id number] #### [facility] [address] [place] [address] Urea nitrogen/Creatinine [Mass ratio] 10 No Units Normal 10-20 [facility] Comment on above: Performed By: #### 2 [id number] #### [facility] [address] [place] [address] Albumin [Mass/Vol] 4.0 g/dL Normal 3.3-5.0 [facility] Comment on above: Performed By: #### 2 [id number] #### [facility] [address] [place] [address] Albumin/Globulin (S) [Mass conc ratio] 1.3 Normal 1.1-2.2 [facility] Comment on above: Performed By: #### 2 [id number] #### [facility] [address] [place] [address] ALP [Catalytic activity/Vol] 42 Int._Unit/L Normal 21-98 [facility] Comment on above: Performed By: #### 2 [id number] #### [facility] [address] [place] [address] ALT No additional P-5'-P [Catalytic activity/Vol] 13 Int._Unit/L Normal 6-46 [facility] Comment on above: Performed By: #### 2 [id number] #### [facility] [address] [place] [address] Anion gap [Moles/Vol] 12 mmol/L Normal 6-16 [facility] Comment on above: Performed By: #### 2 [id number] #### [facility] [address] [place] [address] AST [Catalytic activity/Vol] 12 Int._Unit/L Normal 5-43 [facility] Comment on above: Performed By: #### 2 [id number] #### [facility] [address] [place] [address] Bilirubin [Mass/Vol] 0.5 mg/dL Normal 0.0-1.1 [facility] Comment on above: Performed By: #### 2 394713 #### [facility] [address] [place] [address] Calcium [Mass/Vol] 9.6 mg/dL Normal 8.9-11.1 [facility] Comment on above: Performed By: #### 2 973502 #### [facility] [address] [place] [address] Chloride [Moles/Vol] 101 mmol/L Normal 101-111 [facility] Comment on above: Performed By: #### 2 [id number] #### [facility] [address] [place] [address] CO2 [Moles/Vol] 26 mmol/L Normal 21-31 [facility] Comment on above: Performed By: #### 2 859235 #### [facility] [address] [place] [address] Globulin (S) [Mass/Vol] 3.0 g/dL Normal 1.4-4.0 [facility] Comment on above: Performed By: #### 2 [id number] #### [facility] [address] [place] [address] Glucose [Mass/Vol] 116 mg/dL Normal 55-199 [facility] Comment on above: Performed By: #### 2 429990 #### [facility] [address] [place] [address] Potassium [Moles/Vol] 3.2 mmol/L Low 3.5-5.3 [facility] Comment on above: Performed By: #### 2 904927 #### [facility] [address] [place] [address] Protein [Mass/Vol] 7.0 g/dL Normal 6.0-7.8 [facility] Comment on above: Performed By: #### 2 [id number] #### [facility] [address] [place] [address] Sodium [Moles/Vol] 136 mmol/L Normal 135-145 [facility] Comment on above: Performed By: #### 2 [id number] #### [facility] [address] [place] [address] Urea nitrogen [Mass/Vol] 9 mg/dL Normal 5-21 [facility] Comment on above: Performed By: #### 2 [id number] #### [facility] [address] [place] [address] Ferritinon 08-26-2024 Ferritin [Mass/Vol] 50 ng/mL Normal 11-307 [facility] Comment on above: Performed By: #### 2 713524 #### [facility] [address] [place] [address] Folateon 08-26-2024 Folate [Mass/Vol] ng/mL Normal >=6.7 [facility] Comment on above: Performed By: #### 2 638976 #### [facility] [address] [place] [address] HEMATOLOGYOrdered By: SYSTEM SYSTEM on 08-26-2024 Basophils/100 [...] Normal 4.0 - 11.0 E9/L Remisol Heme [id number] 08-26-2024 HbA1c (Bld) [Mass fraction] 5.2 % Normal <=5.9 [facility] Comment on above: Performed By: #### 7 [id number] #### [facility] [address] [place] [address] Ironon 08-26-2024 Iron [Mass/Vol] 56 microgram/dL Normal 35-153 [facility] Comment on above: Performed By: #### 2 650617 #### [facility] [address] [place] [address] Iron Saturationon 08-26-2024 Iron binding capacity [Mass/Vol] 330 microgram/dL Normal 250-400 [facility] Comment on above: Performed By: #### 2 427495 #### [facility] [address] [place] [address] Iron saturation [Mass fraction] 17 % Low 20-50 [facility] Comment on above: Performed By: #### 2 036341 #### [facility] [address] [place] [address] Transferrinon 08-26-2024 Transferrin [Mass/Vol] 236 mg/dL Normal 200-370 [facility] Comment on above: Performed By: #### 2 798126 #### [facility] [address] [place] [address] U Microalbon 08-26-2024 Albumin DL <= 20 mg/L (U) [Mass/Vol] 0.7 mg/dL Normal 0.0-1.9 [facility] Comment on above: Performed By: #### 1 [id number] #### [facility] [address] [place] [address] U Protein/Creat Ratioon Ur Total Protein 6.4 mg/dL Invalid Interpretation Code [facility] Comment on above: Performed By: #### 1 [id number] #### [facility] [address] [place] [address] Protein/Creatinine (U) [Ratio] 7.90 mg/gm Cr Normal .00-200.00 [facility] Comment on above: Performed By: #### 1 [id number] #### [facility] [address] [place] [address] U Creatinine 81.5 mg/dL Invalid Interpretation Code [facility] Comment on above: Performed By: #### 1 [id number] #### [facility] [address] [place] [address] Vit B12on 08-26-2024 Cobalamin (Vitamin B12) [Mass/Vol] 225 pg/mL Normal 50-1500 [facility] Comment on above: Performed By: #### 2 [id number] #### [facility] [address] [facility] [place] [address] eGFRon 08-26-2024 eGFR 79 mL/min/1.73 m2 Normal >=59 [facility] Comment on above: Performed By: #### 1 [id number] #### [facility] [address] [place] [address] Ambulatory Visit Summaryon 0 08-19-2024 Ambulatory Visit [...] mg Cap) fluticasone nasal (Flonase 0.05 mg/inh Somers) folic acid (folic acid 1 mg Tab) [...] PM EDT With: Serafin Roberson DO Where: [address] [place] [address]- You Need to Schedule the Following Appointments Follow Up with Da MITTAL, RODRI Schmidt PED When: Within 3 months Comments: 20 min slot To go instructions: No changes today Read Driven to Distraction by Suman Mckinney to learn more about ADHD [email or web address] [email or web address]-[email or web address]-clg-feet/ ------ To go instructions: Begin adipex; start [...] ------ *When you see providers outside of [facility], please request that they send office visit notes every time you're seen there - this helps us take better care of you Follow up 3 months Where: [address] [place] [address] (more content not included)... Normal [facility] Family Medicine Office/Clini c Noteon 08-19-2024 Family [...] home - 1 child (who lives in [place]) not speaking to her. That child's spouse remains in contact with the patient and her . 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 Perkins Psych - Dr. Polly Schaffer Urology - unsure of name - has prolapsed bladder for the past 6 years, needs surgery to fix but must lose weight before the surgery To do list: read Driven to Distraction HPI staff / Chief Complaint confirmed with the patient seen in [facility] on 08/12/24 for bronchitis given rx [...] 42.72 PHYSICAL EXAM Constitutional: Vital signs reviewed; ORGANKAYLA is well nourished, no acute distress - [...] Lower ur (more content not included)... Normal [facility] Comment on above: Result Comment: Elec tronically Signed By: Serafin Roberson DO\Date and Time Signed: 08/19/24 17:22 EDT Ambulatory [...] mg Cap) fluticasone nasal (Flonase 0.05 mg/inh Somers) folic acid (folic acid 1 mg Tab) [...] PM EDT With: Serafin Roberson DO Where: [facility] [address] [place] [address]- Thursday 10:20 AM EDT With: Augustus MEDEL, Jeffy Galvan Where: [facility] Thursday 9:15 AM EDT With: Alyssa Young PA-C Where: [facility] You Need to Schedule the Following Appointments Follow Up with Serafin Roberson DO, RODRI, PED When: Where: [address] [place] [address] Medications What How Much When Why Instructions New benzonatate (benzonatate 200 mg oral capsule) 1 Capsules By Mouth 3 times a day Duration: 14 Days Pickup at [facility] New predniSONE (predniSONE 20 mg Tab) 2 Tablets By Mouth 2 times a day Duration: 5 Days Pickup at [facility] Unchanged albuterol (Albuterol (Eqv-ProAir HFA) 90 [...] Unchanged f (more content not included)... Normal [facility] Family Medicine Office/Clini c Noteon 08-12-2024 Family [...] readings recently. - The patient denies using [id number] cough medications, expressing concern about potential effects [...] pressure. 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 Normal [facility] Comment on above: Result Comment: Elec tronically Signed By: Juanita Strauss\.br\Date and Time Signed: 08/12/24 10:24 EDT Provider Letteron 08-12-2024 Provider Letter Provider Letter [address] [address] August 12, 2024 KAYLA ORGAN [address] [place] [address] : 1975 To Whom It May Concern, Please excuse above patient from work. Date of Illness: From: _ 08/12/24 To: _08/14/24 May Return to Work On: 08/15/24 Restrictions: _ Comments: _ Sincerely, Juanita Oneill [address], [facility] [address] [facility] Ambulatory Visit Summaryon 0 07-08-2024 Ambulatory Visit [...] mg Cap) fluticasone nasal (Flonase 0.05 mg/inh Somers) folic acid (folic acid 1 mg Tab) [...] ------ *When you see providers outside of [facility], please request that they send office visit [...] months Where: [address] [place] [address] [id number] You Need to Complete the Following MA Mamm Screen w/CAD if perf and 3D Pablo, 07/08/24, Routine, Order for Future Visit, Transport Mode: Ambulatory, Reason: Screening, No, Screening mammogram for breast cancer, pp_set_radiology_subspecialt y, [facility] Medications What How Much When Why Instructions Changed buPROPion (buPROPion 300 mg/ 24 hours ER Tab) 1 Tablets By Mouth Every day ADHD (attention deficit hyperactivity disorder), inattentive type Pickup at [facility] Unchanged albuterol (Albuterol (Eqv-ProAir HFA) 90 mcg/ inh inhalation aerosol) 2 Puffs Inhalation Every 6 hours Wheezing Contact prescribing physician if questions or concerns Unchanged cyanocobalamin (cyanocobalamin 1000 mcg/ mL Inj) 1 Milliliter Intramuscular Once a month B12 deficiency Also dispense 3 ml (more content not included)... Normal [facility] Medicine Video Visit - Telehealthon 07-08-2024 Family [...] home - 1 child (who lives in [place]) not speaking to her. That child's spouse remains in contact with the patient and her . 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 Perkins Psych - Dr. Polly [...] 1 (10/24/22 09:59:00) Future Appointments [facility] [place] Appt. Date: 08/08/2024 8:30 AM Scheduled Provider: Alyssa Young PA-C [address] [place], [address] [facility] App[facility]. Date: 08/08/2024 11:20 AM Scheduled Provider: MD Augustus, Jeffy Galvan [facility] [address] [place], [address] Phone: [phone] Fax: [phone] From last note: Physical Exam PHYSICAL EXAM [...] Daily, # 30 tab(s), Refills(s) 11, Pharmacy: [facility] (more content not included)... Normal [facility] Comment on above: Result Comment: Elec tronically Signed By: Da MITTAL, Serafin William.newton\Date and Time Signed: 07/08/24 17:01 EST Family [...] home - 1 child (who lives in [place]) not speaking to her. That child's spouse remains in contact with the patient and her . 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 Perkins Psych - Dr. Polly [...] on c (more content not included)... Normal [facility] Comment on above: Result Comment: Elec tronically Signed By: Serafin Roberson DO\.[place]ton\Date and Time Signed: 06/04/24 16:41 EST\.br\Electronically Co-Signed By: Lilia Santos [facility] Student, Corina Lopez\Date and Time Co-Signed: 06/03/24 14:42 EST Ambulatory [...] mg Cap) fluticasone nasal (Flonase 0.05 mg/inh Somers) folic acid (folic acid 1 mg Tab) [...] AM EST With: Serafin Roberson DO Where: [address] [place] [address]- Medications What How Much When Why Instructions New ciprofloxacin-dexamethasone otic (Ciprodex 0.3%-0.1% Susp-Otic) 4 Drops Otic 2 times a day Otitis externa Ear pain Duration: 7 Days Refills: 1 Pickup at [facility] Unchanged cyclobenzaprine (cyclobenzaprine 10 mg Tab) 1 Tablets By Mouth 3 times a day as needed for for spasm Spasm of thoracic back muscle Pickup at [facility] Unchanged hydrochlorothiazide (hydrochlorothiazide 25 mg Tab) 1 Tablets By Mouth Once a day (in the morning) Hypertension Pickup at [facility] Unchanged montelukast (Singulair 10 mg Tab) 1 Tablets By Mouth Once a day (in the evening) Allergic rhinitis due to pollen Pickup at [facility] Unchanged propranolol (propranolol 60 mg Cap-ER) 1 Capsules By Mouth Every day Palpitations HTN Pickup at [facility] Unchanged albuterol (Albuterol (Eqv-ProAir HFA) [...] a mon (more content not included)... Normal [facility] Provider Letteron 06-03-2024 Provider Letter Provider Letter June 03, 2024 KAYLA MONTANA [address] [place] [id number] : 1975 To Whom It May Concern, Please excuse above patient from work. Date of Illness: From: 06/03/24 May Return to Work On: 06/03/24 Restrictions: none Comments: none Sincerely, [facility] [address] [place] [address] [facility] Ambulatory Visit Summaryon 0 05-27-2024 Ambulatory [...] Cap-DR) elderberry fluticasone nasal (Flonase 0.05 mg/inh Somers) folic acid (folic acid 1 mg Tab) [...] Management Clinic Thursday 9:40 AM EST With: Sanam MCMAHON, Daja Harman Where: [facility] Medications What How Much When Why Instructions New buPROPion (buPROPion 150 mg/ 24 hours XL Tab) 1 Tablets By Mouth Every 24 hours ADHD (attention deficit hyperactivity disorder), inattentive type Generalized anxiety disorder Mild recurrent major depression Refills: 5 Pickup at [facility] Changed fluoxetine (FLUoxetine 20 mg Cap) [...] Unchanged fluticasone nasal (Flonase 0.05 mg/ inh Somers) 2 Sprays Nasal Inhalation Every day Congestion of nasal sinus each nostril Contact prescribing physician if questions or concerns Unchanged folic acid (folic acid 1 mg Tab) 1 Tablets By Mouth Every day Folate deficiency Contact prescribing physici (more content not included)... Normal [facility] Ambulatory Visit Summary Ambulatory Visit Summary KAYLA [...] Cap-DR) elderberry fluticasone nasal (Flonase 0.05 mg/inh Somers) folic acid (folic acid 1 mg Tab) [...] Unchanged fluticasone nasal (Flonase 0.05 mg/ inh Somers) 2 Sprays Nasal Inhalation Every day Congestion of nasal sinus each nostril Contact prescribing physician if questions or concerns Unchanged folic acid (folic acid 1 mg Tab) 1 Tablets By Mouth Every day Folate deficiency Contact prescribing physician if questions or concerns Unchanged gabapentin (gabapentin 600 mg Tab) 1 Tablets By (more content not included)... Normal [facility] Family Medicine Office/Clini c Noteon 05-27-2024 Family [...] home - 1 child (who lives in [place]) not speaking to her. That child's spouse remains in contact with the patient and her . 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 Anderas Eckert Pain Management - Rupesh Gandara / Alyssa Young Oncology / Hematology - Daja Marion SCHOOL PSYCHOLOGICAL EXAMINER - Dr. Perkins Psych - Dr. Polly [...] q24hr, # 30 tab(s), Refills(s) 5, Pharmacy: [facility], 165, cm, 05/27/24 8:56:00 EST, Height/Length Dosing, 119.7, kg, 05/27/24 8:56:00 EST, Weight Dosing 2. Generalized anxiety disorder (F41.1: Generalized anxiety disorder) Chronic Stable Room for improvement Likely complicated by #1 Ordered: buPROPion, 150 mg = 1 tab(s), Oral, q24hr, # 30 tab(s), Refills(s) 5, Pharmacy: [facility], 165, cm, 05/27/24 8:56:00 EST, Height/Length [...] mild) Chronic (more content not included)... Normal [facility] Comment on above: Result Comment: Elec tronically Signed By: Serafin Roberson DO\.br\Date and Time Signed: 05/27/24 16:27 EST\.br\Electronically Co-Signed By: Lilia Santos [facility] StudentCorina.br\Date and Time Co-Signed: 05/27/24 09:33 EST CBC w/ Auto Diffon 4 Basophils/100 WBC (Bld) 1.3 % Normal 0.0-2.0 [facility] Comment on above: Performed By: #### 2 [id number] #### [facility] [address] [place] [address] Basophils/Leukocytes Auto (Bld) [Pure # fraction] 0.1 E9/L Normal 0.0-0.2 [facility] Comment on above: Performed By: #### 2 [id number] #### [facility] [address] [place] [address] Eosinophils (Bld) [#/Vol] 0.1 E9/L Normal 0.0-0.5 [facility] Comment on above: Performed By: #### 2 [id number] #### [facility] [address] [place] [address] Eosinophils/100 WBC (Bld) 1.8 % Normal 0.0-8.0 [facility] Comment on above: Performed By: #### 2 [id number] #### [facility] [address] [place] [address] Erythrocyte distribution width (RBC) [Ratio] 14.0 % Normal 10.9-14.2 [facility] Comment on above: Performed By: #### 2 [id number] #### [facility] [address] [place] [address] Hematocrit (Bld) [Volume fraction] 41.0 % Normal 34.0-46.0 [facility] Comment on above: Performed By: #### 2 [id number] #### [facility] [address] [place] [address] Hemoglobin (Bld) [Mass/Vol] 13.9 g/dL Normal 12.0-16.0 [facility] Comment on above: Performed By: #### 2 [id number] #### [facility] [address] [place] [address] Lymphocytes (Bld) [#/Vol] 1.6 E9/L Normal 1.0-4.0 [facility] Comment on above: Performed By: #### 2 [id number] #### [facility] [address] [place] [address] Lymphocytes/100 WBC (Bld) 25.9 % Normal 14.0-50.0 [facility] Comment on above: Performed By: #### 2 [id number] #### [facility] [address] [place] [address] MCH (RBC) [Entitic mass] 29.8 pg Normal 27.0-34.0 [facility] Comment on above: Performed By: #### 2 [id number] #### [facility] [address] [place] [address] MCHC (RBC) [Mass/Vol] 33.9 g/dL Normal 31.4-36.0 [facility] Comment on above: Performed By: #### 2 399404 #### [facility] [address] [place] [address] MCV (RBC) [Entitic vol] 87.9 fL Normal 80.0-100.0 [facility] Comment on above: Performed By: #### 2 [id number] #### [facility] [address] [place] [address] Monocytes (Bld) [#/Vol] 0.3 E9/L Normal 0.2-1.0 [facility] Comment on above: Performed By: #### 2 [id number] #### [facility] [address] [place] [address] Neutrophils (Bld) [#/Vol] 4.1 E9/L Normal 2.0-7.5 [facility] Comment on above: Performed By: #### 2 066109 #### [facility] [address] [place] [address] Neutrophils/100 WBC (Bld) 65.6 % Normal 36.0-75.0 [facility] Comment on above: Performed By: #### 2 129336 #### [facility] [address] [place] [address] Platelet 304.0 E9/L Normal 150.0-500. 0 [facility] Comment on above: Performed By: #### 2 [id number] #### [facility] [address] [place] [address] Platelet mean volume (Bld) [Entitic vol] 9.2 fL Normal 6.4-10.8 [facility] Comment on above: Performed By: #### 2 [id number] #### [facility] [address] [place] [address] RBC (Bld) [#/Vol] 4.7 E12/L Normal 4.3-5.9 [facility] Comment on above: Performed By: #### 2 559122 #### [facility] [address] [place] [address] WBC corrected for nucl RBC Auto (Bld) [#/Vol] 6.2 E9/L Normal 4.0-11.0 [facility] Comment on above: Performed By: #### 2 [id number] #### [facility] [address] [place] [address] CHEMISTRYOrdered By: SYSTEM SYSTEM on 03-31-2024 Albumin [...] 03-31-2024 Albumin [Mass/Vol] 4.5 g/dL Normal 3.3-5.0 [facility] Comment on above: Performed By: #### 2 614258 #### [facility] [address] [place] [address] Albumin/Globulin (S) [Mass conc ratio] 1.5 Normal 1.1-2.2 [facility] Comment on above: Performed By: #### 2 [id number] #### [facility] [address] [place] [address] ALP [Catalytic activity/Vol] 42 Int._Unit/L Normal 21-98 [facility] Comment on above: Performed By: #### 2 100012 #### [facility] [address] [place] [address] ALT No additional P-5'-P [Catalytic activity/Vol] 17 Int._Unit/L Normal 6-46 [facility] Comment on above: Performed By: #### 2 [id number] #### [facility] [address] [place] [address] Anion gap [Moles/Vol] 13 mmol/L Normal 6-16 [facility] Comment on above: Performed By: #### 2 960515 #### [facility] [address] [place] [address] AST [Catalytic activity/Vol] 19 Int._Unit/L Normal 5-43 [facility] Comment on above: Performed By: #### 2 [id number] #### [facility] [address] [place] [address] Bilirubin [Mass/Vol] 0.5 mg/dL Normal 0.0-1.1 [facility] Comment on above: Performed By: #### 2 [id number] #### [facility] [address] [place] [address] Calcium [Mass/Vol] 9.6 mg/dL Normal 8.9-11.1 [facility] Comment on above: Performed By: #### 2 [id number] #### [facility] [address] [place] [address] Chloride [Moles/Vol] 101 mmol/L Normal 101-111 [facility] Comment on above: Performed By: #### 2 [id number] #### [facility] [address] [place] [address] CO2 [Moles/Vol] 26 mmol/L Normal 21-31 [facility] Comment on above: Performed By: #### 2 [id number] #### [facility] [address] [place] [address] Creatinine [Mass/Vol] 0.9 mg/dL Normal 0.5-1.3 [facility] Comment on above: Performed By: #### 2 [id number] #### [facility] [address] [place] [address] Globulin (S) [Mass/Vol] 3.0 g/dL Normal 1.4-4.0 [facility] Comment on above: Performed By: #### 2 [id number] #### [facility] [address] [place] [address] Glucose [Mass/Vol] 92 mg/dL Normal 55-199 [facility] Comment on above: Performed By: #### 2 [id number] #### [facility] [address] [place] [address] Potassium [Moles/Vol] 3.6 mmol/L Normal 3.5-5.3 [facility] Comment on above: Performed By: #### 2 [id number] #### [facility] [address] [place] [address] Protein [Mass/Vol] 7.5 g/dL Normal 6.0-7.8 [facility] Comment on above: Performed By: #### 2 [id number] #### [facility] [address] [place] [address] Sodium [Moles/Vol] 136 mmol/L Normal 135-145 [facility] Comment on above: Performed By: #### 2 [id number] #### [facility] [address] [place] [address] Urea nitrogen [Mass/Vol] 12 mg/dL Normal 5-21 [facility] Comment on above: Performed By: #### 2 [id number] #### [facility] [address] [place] [address] Urea nitrogen/Creatinine [Mass ratio] 13 No Units Normal 10-20 [facility] Comment on above: Performed By: #### 2 [id number] #### [facility] [address] [place] [address] Ferritinon 03-31-2024 Ferritin [Mass/Vol] 186 ng/mL Normal 11-307 [facility] Comment on above: Performed By: #### 2 [id number] ####[facility] [address] [place] [address] HEMATOLOGYOrdered By: SYSTEM SYSTEM on 03-31-2024 Basophils/100 [...] 03-31-2024 Iron [Mass/Vol] 57 microgram/dL Normal 35-153 [facility] Comment on above: Performed By: #### 2 [id number] #### [facility] [address] [place] [address] Iron Saturationon 03-31-2024 Iron binding capacity [Mass/Vol] 343 microgram/dL Normal 250-400 [facility] Comment on above: Performed By: #### 2 [id number] #### [facility] [address] [place] [address] Iron saturation [Mass fraction] 17 % Low 20-50 [facility] Comment on above: Performed By: #### 2 [id number] #### [facility] [address] [place] [address] Transferrinon 03-31-2024 Transferrin [Mass/Vol] 245 mg/dL Normal 200-370 [facility] Comment on above: Performed By: #### 2 [id number] #### [facility] [address] [place] [address] eGFRon 03-31-2024 eGFR 80 mL/min/1.73 m2 Normal >=59 [facility] Comment on above: Performed By: #### 1 [id number] #### [facility] [address] [place] [address] Ambulatory Visit Summaryon 0 11-09-2023 Ambulatory Visit [...] mg Cap) fluticasone nasal (Flonase 0.05 mg/inh Somers) folic acid (folic acid 1 mg Tab) [...] AM EDT With: Serafin Roberson DO Where: [facility] [place] Normal [facility] Medicine Office/Clini c Noteon 11-09-2023 Family [...] Mouth: mucous membranes pink, moist and intact. [place] posterior oropharynx, no palatal inflammation, uvula midline, [...] day(s), # 20 tab(s), Refills(s) 0, Pharmacy: [facility]/pharmacy #[id number], 165, cm, 11/09/23 16:50:00 EDT, Height/Length Dosing, 116.7, kg, 11/09/23 16:50:00 EDT, Weight Dosing guaifenesin-pseudoephedrine, 1 tab(s), Oral, q12hr for 10 day(s), 20 tab(s), Refill(s) 0, [facility]/pharmacy #[id number], 165, cm, 11/09/23 16:50:00 EDT, Height/Length [...] day(s), # 21 cap(s), Refills(s) 0, Pharmacy: [facility]/pharmacy #[id number], 165, cm, 11/09/23 16:50:00 EDT, Height/Length [...] Morbid (sev (more content not included)... Normal [facility] Comment on above: Result Comment: Elec tronically [...] to help relieve symptoms, such as: ? Pylv-zep-qjumaaa cold medicines. ? Medicines to reduce coughing [...] other clear broths. General instructions ? 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 ? Avoid touching your mouth, face, eyes, [...] get better within 7?10 days. ? Take riss-nks-fuhmpzf and prescription medicines only as told by your doctor. This information is not intended to replace advice given to you by your health care provider. Make sure y (more content not included)... Normal [facility] Insurance Correspondence Off 2023 Insurance Correspondence Office [id number]#2.00TIFF Normal [facility] Insurance Correspondence Off iceon 10-29-2023 Insurance Correspondence Office [id number]#2.00TIFF Normal [facility] Consent for Treatmenton 09-23 Consent for Treatment [id number]#1.00TIFF Normal [facility] Consultation Noteon 10-14-19 Consultation Note Patient is [...] products as appropriate (more content not included)... [facility] Comment on above: Result Comment: Elec tronically Signed By: Rupesh Gandara DO\.br\Date and Time Signed: 10/14/23 12:28 EDT Legal Correspondence Officeo n 10-14-2023 Legal Correspondence Office [id number]#1.00TIFF [facility] Office/Clinic Note-Nurseon 0 10-14-2023 Office/Clinic Note-Nurse [id number]#1.00TIFF [facility] Office/Clinic Note-Physician on 10-14-2023 Office/Clinic Note-Physician [id number]#1.00TIFF [facility] Patient Correspondenceon Patient Correspondence [id number]#1.00TIFF [facility] Patient Correspondence [id number]#1.00TIFF [facility] Patient Correspondence [id number]#1.00TIFF [facility] Patient Correspondence [id number]#1.00TIFF [facility] Patient History Officeon Patient History Office [id number]#1.00TIFF [facility] Physician Orderon 10-14-2023 Physician Order [id number]#1.00TIFF [facility] C Urineon 09-04-2023 Bacteria identified Cx [...] Locations R1: This test was performed at: [facility], [address] [place] [address], [address] [place] [address], [facility] Comment on above: Performed By: #### 2 [id number] ####[place] [address] Ambulatory Visit Summaryon 0 09-01-2023 Ambulatory Visit [...] mg Cap) fluticasone nasal (Flonase 0.05 mg/inh Somers) folic acid (folic acid 1 mg Tab) [...] Unchanged fluticasone nasal (Flonase 0.05 mg/ inh Somers) 2 Sprays Nasal Inhalation Every day Congestion [...] t (more content not included)... Normal [facility] Ambulatory Visit Summary KAYLA MONTANA :1975 Visit [...] mg Cap) fluticasone nasal (Flonase 0.05 mg/inh Somers) folic acid (folic acid 1 mg Tab) [...] Unchanged fluticasone nasal (Flonase 0.05 mg/ inh Somers) 2 Sprays Nasal Inhalation Every day Congestion [...] (in t (more content not included)... Normal [facility] Office/Clini c Noteon 09-01-2023 Family [...] and agree with above documented HPI by medical sales associate. Patient is a 47-year-old female who comes [...] day(s), # 10 cap(s), Refills(s) 0, Pharmacy: [facility] #[id number], 165, cm, 09/01/23 15:20:00 EDT, Height/Length Dosing, 118, kg, 09/01/23 15:20:00 EDT, Weight Dosing 2. Dysuria (R30.0: Dysuria) Same as above Ordered: nitrofurantoin, 100 mg = 1 cap(s), Oral, BID, X 5 day(s), # 10 cap(s), Refills(s) 0, Pharmacy: [facility] #[id number], 165, cm, 09/01/23 15:20:00 EDT, Height/Length Dosing, 118, kg, 09/01/23 15:20:00 EDT, Weight Dosing Urnls Dip Stick Auto w/o Microscopy POC 54133 3. Rash (R21: Rash and other nonspecific [...] day(s), # 7 tab(s), Refills(s) 0, Pharmacy: [facility] #[id number], 165, cm, 09/01/23 15:20:00 EDT, Height/Length Dosing, 118, kg, 09/01/23 15:20:00 EDT, Weight Dosing Portions of this record may have been created with voice recognition artificial intelligence software, specifically [employer], [employer] and or [employer]. Occasional wrong-word or `mozze-s-mdug? substitutions may have occurred due to the inherent limitations of voice recognition and artificial intelligence software. Follow-up No qualifying data available Patient Education Rash, Adult, Uzix-fs-Raps Rash, Adult, Roil-ow-Ycku Dysuria Problem List/Past Medical History Ongoing Abnormal EKG Acanthosis nigricans Acid reflux ADHD (attention deficit hyperactivity disorder), inattentive ty (more content not included)... Normal [facility] Comment on above: Result Comment: Elec tronically Signed By: Haylee SAMUELS, Maximilian Trammell.br\Date and Time Signed: 09/01/23 16:22 EDT Patient Educationon 09-01-19 Patient Education Rash, Adult A rash is [...] with your condition: Medicine Take or apply hfzy-xwh-zvmumog and prescription medicines only as told by [...] rash from spreading. ? Take or apply oipq-ezp-sumvujo and prescription medicines only as told by [...] provider. Document Revised: 02/20/2022 Document Reviewed: 02/20/2022 [employer] Patient Education ? 2022 [employer]. Infectious Disease Rash, Adult A rash is [...] with your condition: Medicine Take or apply cxgx-twz-pkxikmo and prescription medicines only as told by your doctor. These (more content not included)... Normal [facility] Consent for Treatmenton 05-25 Consent for Treatment [id number]#1.00TIFF [facility] Physician Orderon 06-05-2023 Physician Order [id number]#1.00TIFF [facility] CHEMISTRYOrdered By: SYSTEM SYSTEM on 05-01-2023 Albumin [Mass/Vol] 3.8 g/dL Normal 3.3 - 5.0 gm/dL [facility] Remisol Albumin/Globulin [Mass ratio] 1.1 {ratio} Normal [...] 1.0 E9/L [facility] Neutrophils/100 WBC (Bld) 66.4 % Normal 36.0 - 75.0 % [facility] Neutrophils/Leukocyt es Auto (Bld) [Pure # fraction] 5.1 E9/L Normal 2.0 - 7.5 E9/L [facility] HEMATOLOGYOrdered By: Kayla Holguin on 05-01-2023 Erythrocyte distribution width (RBC) [Ratio] 14.4 % High 10.9 - 14.2 % [facility] Hematocrit (Bld) [Volume fraction] 38.7 % Normal 34.0 - 46.0 % [facility] Hemoglobin (Bld) [Mass/Vol] 13.2 g/dL Normal 12.0 - 16.0 gm/dL [facility] MCH (RBC) [Entitic mass] 30.9 pg Normal 27.0 - 34.0 pg [facility] MCHC (RBC) [Mass/Vol] 34.2 g/dL Normal 31.4 - 36.0 gm/dL [facility] MCV (RBC) [Entitic vol] 90.5 fL Normal 80.0 - 100.0 fL [facility] Platelet mean volume (Bld) [Entitic vol] 8.6 fL Normal 6.4 - 10.8 fL [facility] Platelets (Bld) [#/Vol] 304.0 E9/L Normal 150.0 - 500.0 E9/L [facility] RBC (Bld) [#/Vol] 4.3 E12/L Normal 4.3 - 5.9 E12/L [facility] WBC corrected for nucl RBC Auto (Bld) [#/Vol] 7.7 E9/L Normal 4.0 - 11.0 E9/L [facility] CHEMISTRYOrdered By: SYSTEM SYSTEM on 02-05-2023 Albumin [Mass/Vol] 4.1 g/dL Normal 3.3 - 5.0 gm/dL [facility] Albumin/Globulin [Mass ratio] 1.1 {ratio} Normal [...] 14.2 g/dL Normal 12.0 - 16.0 gm/dL [facility] MCH (RBC) [Entitic mass] 31.7 pg Normal 27.0 - 34.0 pg [facility] MCHC (RBC) [Mass/Vol] 34.4 g/dL Normal 31.4 - 36.0 gm/dL [facility] MCV (RBC) [Entitic vol] 92.2 fL Normal 80.0 - 100.0 fL [facility] Platelet mean volume (Bld) [Entitic vol] 9.2 fL Normal 6.4 - 10.8 fL [facility] Platelets (Bld) [#/Vol] 334.0 E9/L Normal 150.0 - 500.0 E9/L [facility] RBC (Bld) [#/Vol] 4.5 E12/L Normal 4.3 - 5.9 E12/L [facility] WBC corrected for nucl RBC Auto (Bld) [#/Vol] 7.3 E9/L Normal 4.0 - 11.0 E9/L [facility] CHEMISTRYOrdered By: SYSTEM SYSTEM on 12-30-2022 [...] mg/dL [facility] GFR/1.73 sq M.predicted among non-blacks MDRD (S/P/Bld) [Vol rate/Area] 80 mL/min/1.73 m2 Normal >=59mL/min /1.73 m2 FT Chem S Globulin (S) [Mass/Vol] 2.7 g/dL Normal 1.4 - 4.0 gm/dL [facility] Glucose [Mass/Vol] 96 mg/dL Normal 55 - 199 mg/dL [facility] Lipase [Catalytic activity/Vol] 26 U/L Normal 13 - 58 unit/L [facility] Potassium [Moles/Vol] 3.5 mmol/L Normal 3.5 - 5.3 mmol/L [facility] Protein [Mass/Vol] 6.3 g/dL Normal 6.0 - 7.8 gm/dL [facility] Sodium [Moles/Vol] 136 mmol/L Normal 135 - 145 mmol/L [facility] Urea nitrogen [Mass/Vol] 13 mg/dL Normal 5 - 21 mg/dL [facility] Urea nitrogen/Creatinine [Mass ratio] 14 mg/mg Normal 10 - 20 [facility] CHEMISTRYOrdered By: Migdalia Guerrero on 12-30-2022 Lactate [Mass/Vol] 1.6 mmol/L Normal 0.5 - 2.2 mmol/L [facility] Troponin I.cardiac [Mass/Vol] 2.90 pg/mL Low [...] 11.0 E9/L [facility] URINALYSISOrdered By: Azalea Dyole on 12-30-2022 Bacteria LM Ql (Urine sed) [...] PM) Normal Negative [facility] UA Auto SS [place].plasma/Lithi um.RBC (Bld) [Mass ratio] 4-20 /HPF Normal [...] [Mass/Vol] Negative (12/30/22 2:52 PM) Normal Negative [facility] UA Auto SS Specific gravity (U) [Rel density] 1.020 *NA* (12/30/22 2:52 PM) Invalid Interpretation Code 1.005 - 1.030 [facility] UA Auto SS UA Spec Desc Clean Catch (12/30/22 2:52 PM) Normal [facility] UA Auto SS Urobilinogen Qn (U) 0.6161566 {Noelle'U}/dL Normal 0.0 - 1.0 EU/dL [facility] UA Auto SS WBC Auto Ql (U) Negative (12/30/22 2:52 PM) Normal Negative [facility] UA Auto SS WBC LM.HPF (Urine sed) [#/Area] 0-5 /HPF Normal 0-5/HPF [facility] UA Auto SS CHEMISTRYOrdered By: Lab ROP User on 12-10-2022 Glucose [Mass/Vol] 115 mg/dL High 55 - 99 mg/dL [facility] POC Subsection POC Device SN [id number] Invalid Interpretation Code [facility] POC Subsection POC User ID [id number] Invalid Interpretation Code [facility] POC Subsection POC Username KHAN JIMBO Invalid Interpretation Code [facility] POC Subsection CHEMISTRYOrdered By: SYSTEM SYSTEM on [...] 105 s Normal 70 - 138 second(s) FT Man Sero PT Coag (PPP) [Time] 11.2 s Normal 9.4 - 1 2.5 second(s) FT Auto Coag HEMATOLOGYOrdered By: Anne Marie Tirado on 10-24-2022 Sed Rate Automated 22 mm/h Normal 0 - 34 mm/hr [facility] Erythrocyte distribution width (RBC) [Ratio] 13.8 % Normal 10.9 - 14.2 % [facility] Hematocrit (Bld) [Volume fraction] 38.2 % Normal 34.0 - 46.0 % [facility] Hemoglobin (Bld) [Mass/Vol] 12.7 g/dL Normal 12.0 - 16.0 gm/dL [facility] MCH (RBC) [Entitic mass] 29.7 pg Normal 27.0 - 34.0 pg [facility] MCHC (RBC) [Mass/Vol] 33.2 g/dL Normal 31.4 - 36.0 gm/dL [facility] MCV (RBC) [Entitic vol] 89.3 fL Normal 80.0 - 100.0 fL [facility] Platelet mean volume (Bld) [Entitic vol] 8.5 fL Normal 6.4 - 10.8 fL [facility] Platelets (Bld) [#/Vol] 287.0 E9/L Normal 150.0 - 500.0 E9/L [facility] RBC (Bld) [#/Vol] 4.3 E12/L Normal 4.3 - 5.9 E12/L [facility] WBC corrected for nucl RBC Auto (Bld) [#/Vol] 6.6 E9/L Normal 4.0 - 11.0 E9/L [facility] HEMATOLOGYOrdered By: SYSTEM SYSTEM on 10-24-2022 Basophils/100 WBC (Bld) 0.4 % Normal 0.0 - 2.0 % [facility] Basophils/Leukocytes Auto (Bld) [Pure # fraction] 0.0 E9/L Normal 0.0 - 0.2 E9/L [facility] Eosinophils/100 WBC (Bld) 2.3 % Normal [...] AM) Normal Negative [facility] UA Auto SS [place].plasma/Lithi um.RBC (Bld) [Mass ratio] 0-3 /HPF Normal [...] [facility] UA Auto SS Urobilinogen Qn (U) 0.7684303 {Noelle'U}/dL Normal 0.0 - 1.0 EU/dL [facility] UA Auto SS WBC Auto Ql (U) Negative (08/14/22 9:47 AM) Normal Negative [facility] UA Auto SS WBC LM.HPF (Urine sed) [#/Area] 0-5 /HPF Normal 0-5/HPF [facility] UA Auto SS Comment on above: Result Comment: Urin e microscopic performed on unspun sample MICRO OTHER TESTSOrdered By: Inga Osman on 06-17-2022 Influenzae A Ag Negative (06/17/22 [...] 3.7 g/dL Normal 3.3 - 5.0 gm/dL [facility] Albumin/Globulin [Mass ratio] 1.2 {ratio} Normal [...] 11. 1 mg/dL [facility] Chloride [Moles/Vol] 108 mmol/L Normal 101 - 1 11 mmol/L [facility] CO2 [Moles/Vol] 25 mmol/L Normal 21 - 31 mmol/L [facility] Remisol Creatinine [Mass/Vol] 0.9 mg/dL Normal 0.5 - 1.3 mg/dL [facility] Remisol GFR/1.73 sq M.predicted among blacks MDRD (S/P/Bld) [Vol rate/Area] mL/min/1.73 m2 Normal >=59mL/min /1.73 m2 [facility] Chem S GFR/1.73 sq M.predicted among non-blacks MDRD (S/P/Bld) [Vol rate/Area] mL/min/1.73 m2 Normal >=59mL/min /1.73 m2 [facility] Chem S Glucose [Mass/Vol] 183 mg/dL Normal 55 - 199 mg/dL [facility] Remisol Magnesium [Mass/Vol] 1.8 mg/dL Normal 1.3 - 2 .4 mg/dL [facility] Remisol Potassium [Moles/Vol] 4.1 mmol/L Normal 3.5 - 5.3 mmol/L [facility] Remisol Sodium [Moles/Vol] 139 mmol/L Normal 135 - 145 mmol/L [facility] Remisol Troponin I.cardiac [Mass/Vol] 3.00 pg/mL Low 10.10 - 27.10 pg/mL [facility] Remisol Urea nitrogen [Mass/Vol] 14 mg/dL Normal 5 - 21 mg/dL [facility] Remisol Urea nitrogen/Creatinine [Mass ratio] 16 mg/mg Normal 10 - 20 [facility] Remisol CHEMISTRYOrdered By: Josse Farmer on 12-02-2021 Natriuretic peptide B (Bld) [Mass/Vol] 41 pg/mL Normal 5 - 80 pg/mL [facility] CHEMISTRYOrdered By: Ac ROP User on 12-02-2021 Glucose [Mass/Vol] 172 mg/dL High 55 - 99 mg/dL [facility] POC Subsection Comment on above: Result Comment: Sin hussein RN/ POC Device SN [id number] Invalid Interpretation Code [facility] POC Subsection POC User ID [id number] Invalid Interpretation Code [facility] POC Subsection POC Username [email or web address] RUTHERFORD Invalid Interpretation Code [facility] POC Subsection COAGULATIONOrdered By: Christine Tejeda on 12-02-2021 aPTT Coag (PPP) [Time] 27.8 s Normal 25.1 - 36.5 second(s) [facility] Auto Coag INR Coag (PPP) [Relative time] 1.0 {INR} Invalid Interpretation Code [facility] Auto Coag PT Coag (PPP) [Time] 11.9 [...] 5.9 E9/L Normal 4.0 - 11.0 E9/L [facility] CHEMISTRYOrdered By: SYSTEM SYSTEM on 11-28-2021 Anion gap [Moles/Vol] 13 mmol/L Normal 6 - 16 mEq/L [facility] Calcium [Mass/Vol] 9.4 mg/dL Normal 8.9 - 11. 1 mg/dL [facility] Chloride [Moles/Vol] 104 mmol/L Normal 101 - 1 11 mmol/L [facility] CO2 [Moles/Vol] 24 mmol/L Normal 21 - 31 mmol/L [facility] Creatinine [Mass/Vol] 1.0 mg/dL Normal 0.5 - 1.3 mg/dL [facility] GFR/1.73 sq M.predicted among blacks MDRD (S/P/Bld) [Vol rate/Area] mL/min/1.73 m2 Normal >=59mL/min /1.73 m2 [facility] Chem S GFR/1.73 sq M.predicted among non-blacks MDRD (S/P/Bld) [Vol rate/Area] 60 mL/min/1.73 m2 Normal >=59mL/min /1.73 m2 [facility] Chem S Glucose [Mass/Vol] 109 mg/dL Normal 55 - 199 mg/dL [facility] Potassium [Moles/Vol] 3.5 mmol/L Normal [...] gm/dL [facility] MCH (RBC) [Entitic mass] 27.1 pg Normal 27.0 - 34.0 pg [facility] MCHC (RBC) [Mass/Vol] 32.7 g/dL Normal 31.4 - 36.0 gm/dL [facility] MCV (RBC) [Entitic vol] 82.6 fL Normal 80.0 - 100.0 fL [facility] Platelet mean volume (Bld) [Entitic vol] 9.4 fL Normal 6.4 - 10.8 fL [facility] Platelets (Bld) [#/Vol] 240.0 E9/L Normal 150.0 - 500.0 E9/L [facility] RBC (Bld) [#/Vol] 4.8 E12/L Normal 4.3 - 5.9 E12/L [facility] WBC corrected for nucl RBC Auto (Bld) [#/Vol] 7.6 E9/L Normal 4.0 - 11.0 E9/L [facility] CHEMISTRYOrdered By: SYSTEM SYSTEM on 08-29-2021 Anion gap [Moles/Vol] 12 mmol/L Normal 6 - 16 mEq/L [facility] Calcium [Mass/Vol] 9.2 mg/dL Normal 8.9 - 11. 1 mg/dL [facility] Chloride [Moles/Vol] 100 mmol/L Low 101 - 1 11 mmol/L [facility] CO2 [Moles/Vol] 25 mmol/L Normal 21 - 31 mmol/L [facility] Creatinine [Mass/Vol] 0.9 mg/dL Normal 0.5 - 1.3 mg/dL [facility] GFR/1.73 sq M.predicted among blacks MDRD (S/P/Bld) [Vol rate/Area] mL/min/1.73 m2 Normal >=59mL/min /1.73 m2 [facility] Chem S GFR/1.73 sq M.predicted among non-blacks MDRD (S/P/Bld) [Vol rate/Area] mL/min/1.73 m2 Normal >=59mL/min /1.73 m2 [facility] Chem S Glucose [Mass/Vol] 101 mg/dL Normal [...] 0 % Normal 0 - 10 % [facility] Basophils/100 WBC (Bld) 1 % Normal 0 - 2 % [facility] Basophils/Leukocytes Manual cnt (Bld) [Pure # fraction] 0.1 E9/L Normal 0.0 - 0.2 E9/L [facility] Eosinophils/100 WBC (Bld) 2 % Normal 0 - 8 % [facility] Eosinophils/Leukocyt es Manual cnt (Bld) [Pure # fraction] 0.2 E9/L Normal 0.0 - 0.5 E9/L [facility] Erythrocyte distribution width (RBC) [Ratio] 15.3 % High 10.9 - 14.2 % [facility] Hematocrit (Bld) [Volume fraction] 30.9 % Low 34.0 - 46.0 % [facility] Hemoglobin (Bld) [Mass/Vol] 11.9 g/dL Low 12.0 - 16.0 gm/dL [facility] Lymphocytes/100 WBC (Bld) 60 % High 14 - 50 % [facility] Lymphocytes/Leukocyt es Manual cnt (Bld) [Pure # fraction] 6.1 E9/L High 1.0 - 4.0 E9/L [facility] MCH (RBC) [Entitic mass] 32.6 pg Normal 27.0 - 34.0 pg [facility] MCHC (RBC) [Mass/Vol] 38.6 g/dL High [...] PM) Normal Negative [facility] UA Auto SS Ketones (U) [Mass/Vol] Trace *NA* (08/29/21 7:48 PM) Invalid Interpretation Code Negative [facility] UA Auto SS [place].plasma/Lithi um.RBC (Bld) [Mass ratio] 0-3 /HPF Normal 0-3/HPF [facility] U[facility] Auto SS Nitrite Ql (U) Negative (08/29/21 7:48 PM) Normal Negative [facility] UA Auto SS pH (U) 5.5 *NA* (08/29/21 7:48 PM) Invalid Interpretation Code 5.0 - 9.0 [facility] UA Auto SS Protein (U) [Mass/Vol] Negative (08/29/21 7:48 PM) Normal Negative [facility] UA Auto SS Specific gravity (U) [Rel density] 1.025 *NA* (08/29/21 7:48 PM) Invalid Interpretation Code 1.005 - 1.030 [facility] UA Auto SS UA Spec Desc Clean Catch (08/29/21 7:48 PM) Normal [facility] UA Auto SS Urobilinogen Qn (U) 0.0922525 {Noelle'U}/dL Normal 0.0 - 1.0 EU/dL [facility] Auto SS WBC Auto Ql (U) Negative (08/29/21 7:48 PM) Normal Negative FT UA Auto SS WBC LM.HPF (Urine sed) [#/Area] 0-5 /HPF Normal 0-5/HPF [facility] [place] UA Auto SS ED Provider Noteson 03-09-20 ED Provider Notes Encounter Department : [facility]: EMERGENCY CENTER ED Provider Notes by Abhay Snyder MD at 03/09/2021 4:47 AM Author: JEM Shaverervice: -Author Type: ED Physician Filed: 03/09/2021 5:29 AMDate of Service: 03/09/2021 4:47 AMStatus: Signed Coffee Brewer: Abhay Snyder MD (ED Physician) CHIEF COMPLAINT [...] Friends and Family: Not on file -Attends [employer] Services: Not on file -Active Member of [...] SURGICAL HISTORY Past Surgical History: ProcedureLateralityDate -BACK [id number] -TONSILLECTOMY CURRENT MEDICATIONS Outpatient Medications Marked as [...] BP126/82 Temp98.7 ?F (37.1 ?C) Pulse80 Resp20 [id number] % Gkeqzw122 lb (133.8 kg) [place] Coma Scale Score15 BMI (Calculated)49.2 Vitals reviewed. Physical Exam Constitutional: Appearance: Normal appearance. HENT: Head: Normocephalic and atraumatic. Nose: Nose normal. Mouth/Throat: Mouth: Muco (more content not included)... Normal [facility] URINE CULTURE, CONDITIONALon 03-09-2021 BILIRUBIN, UA Negative Normal Negative [facility] Comment on above: Performed By: #### L [id number], [id number], [id number] #### [place] [id number] RUST BLOOD, UA 3+ mg/dL Abnormal Negative [facility] Comment on above: Performed By: #### L [id number], [id number], [id number] #### [address] Clarity (U) Slightly Cloudy Abnormal Clear [facility] Comment on above: Performed By: #### L [id number], [id number], [id number] #### [address] Color (U) Yellow Normal Yellow [facility] Comment on above: Performed By: #### L [id number], [id number], [id number] #### [address] GLUCOSE, UA Negative Normal Negative [facility] Comment on above: Performed By: #### L [id number], [id number], [id number] #### [address] KETONES, UA Negative Normal Negative [facility] Comment on above: Performed By: #### L [id number], [id number], [id number] #### [address] LEUKOCYTES, UA 3+ Isabell/uL Abnormal Negative [facility] Comment on above: Performed By: #### L [id number], [id number], [id number] #### [address] Nitrite Ql (U) Negative Normal Negative [facility] Comment on above: Performed By: #### L [id number], [id number], [id number] #### [address] pH (U) 6.0 [pH] Normal 5.0-8.0 [facility] Comment on above: Performed By: #### L [id number], [id number], [id number] #### [address] Protein (U) [Mass/Vol] 100 mg/dL Abnormal Negative [facility] Comment on above: Performed By: #### L [id number], [id number], [id number] #### [address] SPECIFIC GRAVITY, UA CATEGORY >1.030 Abnormal 1.010 - 1.025 [facility] Comment on above: Performed By: #### L [id number], [id number], [id number] #### [address] URINE CULTURE, CONDITIONAL Normal [facility] Comment on above: Result Comment: Rele ase to patient->Immediate Performed By: #### L [id number], [id number], [id number] #### [address] UROBILINOGEN, UA Normal Normal Normal [facility] Comment on above: Performed By: #### L [id number], [id number], [id number] #### [address] URINE CULTURE, CONDITIONAL, NOT PERFORMEDon 03-09-2021 URINE CULTURE, CONDITIONAL, NOT PERFORMED URINE CULTURE NOT PERFORMED Conditions not met for Urine Culture [facility] Comment on above: Order Comment: Relea se to patient->Immediate Performed By: #### L [id number], [id number], [id number] #### [address] URINE MICROSCOPIC REFLEX CUL TUREon 03-09-2021 Epithelial cells LM Ql (Urine sed) 5-9 Abnormal 0-3 [facility] Comment on above: Performed By: #### L [id number], [id number], [id number] #### [address] URINE BACTERIA 1+ /hpf Abnormal Negative [facility] Comment on above: Performed By: #### L [id number], [id number], [id number] #### [address] URINE MICROSCOPIC REFLEX CULTURE Normal [facility] Comment on above: Result Comment: Cult ure of the urine specimen was not completed as criteria were not met. Release to patient->Immediate Performed By: #### L [id number], [id number], [id number] #### [address] URINE RED BLOOD CELLS 10-20 Abnormal 0-3 [facility] Comment on above: Performed By: #### L [id number], [id number], [id number] #### [address] URINE WHITE BLOOD CELLS 5-9 Abnormal 0-3 [facility] Comment on above: Performed By: #### L [id number], [id number], [id number] #### [address] Gynecology Office/Clinic Not heri 02-15-2018 Gynecology Office/Clinic [...] we need to fully rule out all PIANO MOVER entities and I'm recommending that she see [...] Jasso 02/11/18 15:32 EDT Kosta Vasques DO [facility] US Pelvis Limitedon 08-28-19 US [...] Electronically Signed in Other Vendor System) Normal [facility] US Transvaginalon 08-27-2017 US Transvaginal EXAM(S) [...] Electronically Signed in Other Vendor System) Normal [facility] Gynecology Office/Clinic Not heri 08-17-2017 Gynecology [...] we need to fully rule out all PIANO MOVER entities and I'm recommending that she see [...] Daily, # 90 tabs, 3 Refill(s), Pharmacy: [facility]/pharmacy #[id number] cyanocobalamin, 1 mL, Subcutaneous, qMonth, syringes for injection weekly x4 then monthly to be done in office or pharmacy, # 30 mL, 0 Refill(s), Pharmacy: [facility]/pharmacy #[id number] Vitamin B12 Level Feeling of incomplete bladder emptying Ordered: Vitamin B12 Level Urinary frequency Ordered: Vitamin B12 Level Urinary incontinence Ordered: Vitamin B12 Level Urinary urgency Ordered: Vitamin B12 Level Orders: US Pelvis LimitedPhysician Comments [id number] consultation 40 minutes with over 50% in [...] oral tablet, 4 mg, 1 tabs, Oral, t4wsFruqfiaif sulfa drugs (tongue swells)Social History Alcohol Never Substance Abuse Denies All Tobacco Current every day smokerFamily History Breast cancer: Grandmother (M). Hypertension 21-MAR-2016 18:09:58<$>: Mother. Thyroid disease: Mother.Diagnostic Results No qualifying data available. No qualifying data available. No qualifying data available. No qualifying data available.Electronically signed by Kosta Koch DO 08/17/17 18:20 EDT Normal [facility] C Urineon 07-19-2017 C Urine Order added by Mery rn rule. Final50,000 cfu/ml Mixed gram positive lashell isolated.This urine contains 3 or more organisms which is inconsistent with clean catch collection. Consider the possibility of contamination during collection.No identification or susceptibility performed as results would be misleading Normal [facility] Comment on above: Performed By: #### U RC ####[facility] (DEFAULT)[facility] [place], [place] [id number] [address] .UA Microscp Aon 07-17-2017 UA Mucus Present Abnormal Absent [facility] Comment on above: Performed By: #### C [id number] ####[place] [address] UA RBC Quant 0 /HPF Normal 0-5 [facility] Comment on above: Performed By: #### C [id number] ####[place] [address] UA Squepi Cells Quant 1 /HPF Normal 0-29 [facility] Comment on above: Performed By: #### C [id number] ####[place] [id number] UA WBC Quant 1 /HPF Normal 0-5 [facility] Comment on above: Performed By: #### C [id number] ####[place] [address] Ambulatory Patient Education on 07-17-2017 Ambulatory Patient [...] the pelvic organ or organs occurring again? [id number] [employer] [place] [address]. All rights reserved. This information is not [...] you'll meet with the anesthesiologist or nurse information security. He or she can tell you what [...] nearby pelvic structures? Trouble urinating? Urinary urgency? [phone] [employer] [place], [place] [id number]. All rights reserved. This information is not intended as a substitute for professional medical care. Always follow your healthcare professional's instructions. Normal [facility] Gynecology Office/Clinic Not heri 07-17-2017 Gynecology [...] Count w/ Differential Comprehensive Metabolic Panel Thyroperoxidase Antibody-[place] Vitamin B12 Level Menorrhagia Ordered: Thyroid Stimulating [...] oral tablet, 4 mg, 1 tabs, Oral, n3lxEnoabdusk sulfa drugs (tongue swells)Social History Alcohol Never Substance Abuse Denies All Tobacco Current every day smokerFamily History Breast cancer: Grandmother (M). Hypertension 21-MAR-2016 18:09:58<$>: Mother. Thyroid disease: Mother.Electronically signed by Kosta Koch DO 07/17/17 17:24 EST Normal [facility] UA w Culture if Indon 2017 Color Nom (U) Yellow Normal [facility] Comment on above: Performed By: #### U CI ####[address] [address] Glucose mass conc (U) Negative Normal Negative [facility] Comment on above: Performed By: #### U CI ####[address] [address] Ketones Ql (U) Negative Normal Negative [facility] Comment on above: Performed By: #### U CI ####[address] [address] UA Blood Negative Normal Negative [facility] Comment on above: Performed By: #### U CI ####[address] [address] UA Clarity Clear Normal [facility] Comment on above: Performed By: #### U CI ####[address] [address] UA Leukocyte Esterase Trace Abnormal Negative [facility] Comment on above: Performed By: #### U CI ####[address] [address] UA Nitrite Negative Normal Negative [facility] Comment on above: Performed By: #### U CI ####[address] [address] UA pH 6.0 Normal 4.5 - 7.8 [facility] Comment on above: Performed By: #### U CI ####[address] [address] UA Protein Negative Normal Negative [facility] Comment on above: Performed By: #### U CI ####[address] [address] UA Source Clean Catch Normal [facility] Comment on above: Performed By: #### U CI ####[address] [address] UA Spec Grav 1.012 Normal 1.003-1.03 5 [facility] Comment on above: Performed By: #### U CI ####[address] [address] UA Urobilinogen 0.2 mg/dL Normal 0.2 - 1.0 [facility] Comment on above: Performed By: #### U CI ####[address] [address] Urobilinogen Test strip Qn (U) Negative Normal Negative [facility] Comment on above: Performed By: #### U CI ####[place] [id number] Vital Signs Date Time Vital Sign Value Performing Clinician [facility] 10-04-2024 08:36-0400 Blood Pressure Location [facility] 10-04-2024 08:36-0400 Diastolic blood pressure 70 mm[Hg] [facility] 10-04-2024 08:36-0400 Heart rate 77 /min [facility] 10-04-2024 08:36-0400 SaO2% (BldA) [Mass fraction] 98 % [facility] 10-04-2024 08:36-0400 Systolic blood pressure 112 mm[Hg] [facility] 09-26-2024 14:00-0400 Body mass index (BMI) [Ratio] 42.18 kg/m2 Dada Perkins DO Work Phone: [facility] 09-26-2024 14:00-0400 Body weight 114.99 kg Dada Maddie DO Work Phone: [facility] 09-26-2024 14:00-0400 Diastolic blood pressure 100 mm[Hg] Dada Maddie DO Work Phone: [facility] 09-26-2024 14:00-0400 Systolic blood pressure 140 mm[Hg] Dada Maddie DO Work Phone: [facility] 09-12-2024 10:30-0400 Body mass index (BMI) [Ratio] 43.02 kg/m2 Dada Maddie DO Work Phone: [facility] 09-12-2024 10:30-0400 Body weight 117.25 kg Dada Maddie DO Work Phone: [facility] 09-12-2024 10:30-0400 Diastolic blood pressure 84 mm[Hg] Dada Maddie DO Work Phone: [facility] 09-12-2024 10:30-0400 Systolic blood pressure 122 mm[Hg] Dada Maddie DO Work Phone: [facility] 08-29-2024 10:34-0400 Body temperature 98.6 [degF] Mhd Al-Marrawi [facility] 08-29-2024 10:34-0400 Diastolic blood pressure 74 mm[Hg] Mhd Al-Marrawi [facility] 08-29-2024 10:34-0400 Heart rate 70 /min Mhd Al-Marrawi [facility] 08-29-2024 10:34-0400 Mean blood pressure 85 mm[Hg] Mhd Al-Marrawi [facility] 08-29-2024 10:34-0400 Respiratory rate 16 /min Mhd Al-Marrawi [facility] 08-29-2024 10:34-0400 SaO2% (BldA) [Mass fraction] 94 % [facility] 08-29-2024 10:34-0400 Systolic blood pressure 106 mm[Hg] [facility] 07-05-2024 08:48-0500 Diastolic blood pressure 69 mm[Hg] Alyssa Young [facility] 07-05-2024 08:48-0500 Diastolic blood pressure 75 mm[Hg] Alyssa Young [facility] 07-05-2024 08:48-0500 Heart rate 74 /min Alyssa blogfoster [facility] 07-05-2024 08:48-0500 Heart rate 75 /min Alyssa blogfoster [facility] 07-05-2024 08:48-0500 Mean blood pressure 85 mm[Hg] Alyssa blogfoster [facility] 07-05-2024 08:48-0500 Respiratory rate 14 /min Alyssa Young [facility] 07-05-2024 08:48-0500 Systolic blood pressure 102 mm[Hg] Alyssa Young [facility] 07-05-2024 08:48-0500 Systolic blood pressure 104 mm[Hg] Alyssa Young [facility] 06-06-2024 08:50-0500 Diastolic blood pressure 78 mm[Hg] Alyssa blogfoster [facility] 06-06-2024 08:50-0500 Heart rate 80 /min Alyssa blogfoster [facility] 06-06-2024 08:50-0500 Mean blood pressure 88 mm[Hg] Alyssa blogfoster [facility] 06-06-2024 08:50-0500 Respiratory rate 16 /min Alyssa Young [facility] 06-06-2024 08:50-0500 Systolic blood pressure 109 mm[Hg] Alyssa Young [facility] 06-03-2024 13:54-0500 Diastolic blood pressure 88 mm[Hg] [facility] 06-03-2024 13:54-0500 Mean blood pressure 103 mm[Hg] [facility] 06-03-2024 13:54-0500 Systolic blood pressure 132 mm[Hg] [facility] 06-03-2024 13:28-0500 Blood Pressure Location [facility] 06-03-2024 13:28-0500 Diastolic blood pressure 98 mm[Hg] [facility] 06-03-2024 13:28-0500 Heart rate 96 /min [facility] 06-03-2024 13:28-0500 SaO2% (BldA) [Mass fraction] 97 % [facility] 06-03-2024 13:28-0500 Systolic blood pressure 152 mm[Hg] [facility] 05-27-2024 08:50-0500 Blood Pressure Location [facility] 05-27-2024 08:50-0500 Diastolic blood pressure 94 mm[Hg] [facility] 05-27-2024 08:50-0500 Heart rate 58 /min [facility] 05-27-2024 08:50-0500 SaO2% (BldA) [Mass fraction] 98 % [facility] 05-27-2024 08:50-0500 Systolic blood pressure 134 mm[Hg] Serafin Roberson [facility] 04-04-2024 10:00-0500 Diastolic blood pressure 88 mm[Hg] Daja Marion [facility] 04-04-2024 10:00-0500 Mean blood pressure 100 mm[Hg] Daja Marion [facility] 04-04-2024 10:00-0500 Systolic blood pressure 124 mm[Hg] Daja Marion [facility] 04-04-2024 09:57-0500 Body temperature 97.52 [degF] Daja Marion [facility] 04-04-2024 09:57-0500 Diastolic blood pressure 106 mm[Hg] Daja Marion [facility] 04-04-2024 09:57-0500 Heart rate 84 /min Daja Marion [facility] 04-04-2024 09:57-0500 Mean blood pressure 119 mm[Hg] Daja Marion [facility] 04-04-2024 09:57-0500 Respiratory rate 16 /min Daja Marion [facility] 04-04-2024 09:57-0500 SaO2% (BldA) [Mass fraction] 97 % Daja Marion [facility] 04-04-2024 09:57-0500 Systolic blood pressure 146 mm[Hg] Daja Marion [facility] 11-09-2023 16:42-0400 Blood Pressure Location Stefaniabeatriz Edwards [facility] 11-09-2023 16:42-0400 Body temperature 98.6 [degF] Stefania sadaf [facility] 11-09-2023 16:42-0400 Diastolic blood pressure 76 mm[Hg] Stefania Edwards [facility] 11-09-2023 16:42-0400 Heart rate 67 /min Stefania Edwards [facility] 11-09-2023 16:42-0400 SaO2% (BldA) [Mass fraction] 99 % Stefania Edwards [facility] 11-09-2023 16:42-0400 Systolic blood pressure 124 mm[Hg] Stefania Edwards [facility] 10-14-2023 11:18-0400 Diastolic blood pressure 82 mm[Hg] Rupesh Gandara [facility] 10-14-2023 11:18-0400 Heart rate 68 /min Rupesh Gandara [facility] 10-14-2023 11:18-0400 Mean blood pressure 94 mm[Hg] Goddard Juliocesar [facility] 10-14-2023 11:18-0400 Respiratory rate 14 /min Rupesh Gandara [facility] 10-14-2023 11:18-0400 Systolic blood pressure 118 mm[Hg] Goddard Juliocesar [facility] 09-01-2023 15:17-0400 Blood Pressure Location [facility] 09-01-2023 15:17-0400 Body temperature 97.7 [degF] [facility] 09-01-2023 15:17-0400 Diastolic blood pressure 80 mm[Hg] [facility] 09-01-2023 15:17-0400 Heart rate 72 /min [facility] 09-01-2023 15:17-0400 Systolic blood pressure 120 mm[Hg] Maximilian Leach [facility] 06-05-2023 09:00-0500 Blood Pressure Location Daja Johnsonke [facility] 06-05-2023 09:00-0500 Body temperature 98.06 [degF] Daja Farmerboske [facility] 06-05-2023 09:00-0500 Diastolic blood pressure 81 mm[Hg] Daja Farmerboske [facility] 06-05-2023 09:00-0500 Heart rate 64 /min Daja Johnsonke [facility] 06-05-2023 09:00-0500 Mean blood pressure 102 mm[Hg] Daja Farmerboske [facility] 06-05-2023 09:00-0500 Respiratory rate 18 /min Daja Johnsonke [facility] 06-05-2023 09:00-0500 SaO2% (BldA) [Mass fraction] 96 % Daja Farmerboske [facility] 06-05-2023 09:00-0500 Systolic blood pressure 144 mm[Hg] Daja Farmerboske [facility] 05-29-2023 11:52-0500 Heart rate 63 /min Daja Johnsonke [facility] 05-29-2023 11:52-0500 SaO2% (BldA) [Mass fraction] 98 % Daja Farmerboske [facility] 05-29-2023 11:52-0500 Diastolic blood pressure 69 mm[Hg] Daja Farmerboske [facility] 05-29-2023 11:52-0500 Mean blood pressure 80 mm[Hg] Daja Farmerboske [facility] 05-29-2023 11:52-0500 Systolic blood pressure 104 mm[Hg] Daja Marion [facility] 05-29-2023 11:00-0500 Blood Pressure Location Daja Marion [facility] 05-29-2023 09:48-0500 Heart rate 75 /min Daja Marion [facility] 05-29-2023 09:48-0500 SaO2% (BldA) [Mass fraction] 97 % Daja Marion [facility] 05-29-2023 09:47-0500 Body temperature 97.88 [degF] Daja Marion [facility] 05-29-2023 09:47-0500 Diastolic blood pressure 90 mm[Hg] Daja Marion [facility] 05-29-2023 09:47-0500 Mean blood pressure 103 mm[Hg] Daja Marion [facility] 05-29-2023 09:47-0500 Systolic blood pressure 128 mm[Hg] Daja Marion [facility] 05-29-2023 09:00-0500 Respiratory rate 16 /min Daja Marion [facility] 05-04-2023 10:00-0500 Blood Pressure Location Daja Marion [facility] 05-04-2023 10:00-0500 Body temperature 98.06 [degF] Daja Marion [facility] 05-04-2023 10:00-0500 Diastolic blood pressure 74 mm[Hg] Daja Marion [facility] 05-04-2023 10:00-0500 Heart rate 80 /min Daja Marion [facility] 05-04-2023 10:00-0500 Mean blood pressure 84 mm[Hg] Daja Marion [facility] 05-04-2023 10:00-0500 Respiratory rate 16 /min Daja Marion [facility] 05-04-2023 10:00-0500 SaO2% (BldA) [Mass fraction] 95 % Daja Marion [facility] 05-04-2023 10:00-0500 Systolic blood pressure 105 mm[Hg] Daja Marion [facility] 01-16-2023 10:30-0400 Blood Pressure Location Andreas JOSEPHLE [facility] 01-16-2023 10:30-0400 Body temperature 97.7 [degF] Andreas KAPLE [facility] 01-16-2023 10:30-0400 Diastolic blood pressure 70 mm[Hg] Andreas KAPLE [facility] 01-16-2023 10:30-0400 Heart rate 75 /min Andreas KAPLE [facility] 01-16-2023 10:30-0400 Respiratory rate 18 /min Andreas KAPLE [facility] 01-16-2023 10:30-0400 SaO2% (BldA) [Mass fraction] 98 % Andreas KAPLE [facility] 01-16-2023 10:30-0400 Systolic blood pressure 116 mm[Hg] Andreas KAPLE [facility] 08-08-2023 17:21-0400 Diastolic blood pressure 76 mm[Hg] Tao David [facility] 12-30-2022 17:21-0400 Heart rate 70 /min Tao David [facility] 12-30-2022 17:21-0400 Mean blood pressure 89 mm[Hg] Tao David [facility] 12-30-2022 17:21-0400 Respiratory rate 16 /min Tao David [facility] 12-30-2022 17:21-0400 SaO2% (BldA) [Mass fraction] 98 % Tao David [facility] 12-30-2022 17:21-0400 Systolic blood pressure 115 mm[Hg] Tao David [facility] 12-30-2022 16:20-0400 Diastolic blood pressure 70 mm[Hg] Tao David [facility] 12-30-2022 16:20-0400 Heart rate 67 /min Tao David [facility] 12-30-2022 16:20-0400 Mean blood pressure 91 mm[Hg] Tao David [facility] 12-30-2022 16:20-0400 Respiratory rate 21 /min Tao David [facility] 12-30-2022 16:20-0400 SaO2% (BldA) [Mass fraction] 99 % Tao David [facility] 12-30-2022 16:20-0400 Systolic blood pressure 133 mm[Hg] Tao David [facility] 12-30-2022 15:30-0400 Diastolic blood pressure 65 mm[Hg] Tao David [facility] 12-30-2022 15:30-0400 Heart rate 70 /min Tao Hernandez [facility] 12-30-2022 15:30-0400 Mean blood pressure 81 mm[Hg] Tao Hernandez [facility] 12-30-2022 15:30-0400 Respiratory rate 16 /min Tao Hernandez [facility] 12-30-2022 15:30-0400 SaO2% (BldA) [Mass fraction] 97 % Tao Hernandez [facility] 12-30-2022 15:30-0400 Systolic blood pressure 112 mm[Hg] Tao Hernandez [facility] 12-30-2022 14:53-0400 Respiratory rate 18 /min Tao Hernandez [facility] 12-30-2022 13:45-0400 Body temperature 97.7 [degF] Tao Hernandez [facility] 12-30-2022 13:45-0400 Respiratory rate 18 /min Tao Hernandez [facility] 12-10-2022 15:13-0400 Heart rate 66 /min Andrew Zumbar [facility] 12-10-2022 15:13-0400 SaO2% (BldA) [Mass fraction] 100 % Andrew Zumbar [facility] 12-10-2022 15:12-0400 Diastolic blood pressure 71 mm[Hg] Andrew Zumbar [facility] 12-10-2022 15:12-0400 Mean blood pressure 82 mm[Hg] Andrew Zumbar [facility] 12-10-2022 15:12-0400 Systolic blood pressure 104 mm[Hg] Andrew Zumbar [facility] 12-10-2022 15:00-0400 Diastolic blood pressure 87 mm[Hg] Andrew Zumbar [facility] 12-10-2022 15:00-0400 Heart rate 59 /min Andrew Zumbar [facility] 12-10-2022 15:00-0400 Systolic blood pressure 125 mm[Hg] Andrew Zumbar [facility] 12-10-2022 14:26-0400 Heart rate 64 /min Andrew Zumbar [facility] 12-10-2022 14:26-0400 SaO2% (BldA) [Mass fraction] 100 % Andrew Zumbar [facility] 12-10-2022 14:26-0400 Diastolic blood pressure 69 mm[Hg] Andrew Zumbar [facility] 12-10-2022 14:26-0400 Mean blood pressure 82 mm[Hg] Andrew Zumbar [facility] 12-10-2022 14:26-0400 Systolic blood pressure 107 mm[Hg] Andrew Zumbar [facility] 12-10-2022 14:25-0400 Respiratory rate 14 /min Andrew Zumbar [facility] 12-10-2022 14:00-0400 Body temperature 97.52 [degF] Andrew Zumbar [facility] 12-09-2022 14:46-0400 Blood Pressure Location Andreas ECKERT [facility] 12-09-2022 14:46-0400 Body temperature 97.52 [degF] Andreas ECKERT [facility] 12-09-2022 14:46-0400 Diastolic blood pressure 80 mm[Hg] Andreas KAPLE [facility] 12-09-2022 14:46-0400 Heart rate 75 /min Andreas KAPLE [facility] 12-09-2022 14:46-0400 Respiratory rate 16 /min Andreas KAPLE [facility] 12-09-2022 14:46-0400 SaO2% (BldA) [Mass fraction] 97 % Andreas KAPLE [facility] 12-09-2022 14:46-0400 Systolic blood pressure 130 mm[Hg] Andreas KAPLE [facility] 11-26-2022 15:21-0400 Blood Pressure Location [facility] 11-26-2022 15:21-0400 Body temperature 97.34 [degF] [facility] 11-26-2022 15:21-0400 Diastolic blood pressure 90 mm[Hg] [facility] 11-26-2022 15:21-0400 Heart rate 94 /min [facility] 11-26-2022 15:21-0400 SaO2% (BldA) [Mass fraction] 98 % [facility] 11-26-2022 15:21-0400 Systolic blood pressure 135 mm[Hg] [facility] 11-13-2022 08:35-0400 Diastolic blood pressure 85 mm[Hg] Andrew Zumbar [facility] 11-13-2022 08:35-0400 Heart rate 108 /min Andrew Zumbar [facility] 11-13-2022 08:35-0400 Mean blood pressure 100 mm[Hg] Andrew Ortegaar [facility] 11-13-2022 08:35-0400 Respiratory rate 15 /min Andrew Henriquezumbar [facility] 11-13-2022 08:35-0400 Systolic blood pressure 130 mm[Hg] Andrew Ortegaar [facility] 11-04-2022 08:26-0400 Blood Pressure Location Andreas KAPLE [facility] 11-04-2022 08:26-0400 Body temperature 97.7 [degF] Andreas KAPLE [facility] 11-04-2022 08:26-0400 Diastolic blood pressure 78 mm[Hg] Andreas KAPLE [facility] 11-04-2022 08:26-0400 Heart rate 94 /min Andreas KAPLE [facility] 11-04-2022 08:26-0400 Respiratory rate 16 /min Andreas KAPLE [facility] 11-04-2022 08:26-0400 SaO2% (BldA) [Mass fraction] 99 % Andreas KAPLE [facility] 11-04-2022 08:26-0400 Systolic blood pressure 128 mm[Hg] Andreas KAPLE [facility] 10-24-2022 08:00-0400 Blood Pressure Location Hussain Varner [facility] 10-24-2022 08:00-0400 Body temperature 97.7 [degF] Hussain Varner [facility] 10-24-2022 08:00-0400 Diastolic blood pressure 88 mm[Hg] Hussain Varner [facility] 10-24-2022 08:00-0400 Heart rate 99 /min Hussain Varner [facility] 10-24-2022 08:00-0400 SaO2% (BldA) [Mass fraction] 98 % Hussainmartha Varner [facility] 10-24-2022 08:00-0400 Systolic blood pressure 130 mm[Hg] Hussain Varner [facility] 10-03-2022 08:26-0400 Blood Pressure Location Andreas KAPLE [facility] 10-03-2022 08:26-0400 Body temperature 98.06 [degF] Andreas KAPLE [facility] 10-03-2022 08:26-0400 Diastolic blood pressure 70 mm[Hg] Andreas KAPLE [facility] 10-03-2022 08:26-0400 Heart rate 90 /min Andreas KAPLE [facility] 10-03-2022 08:26-0400 Respiratory rate 16 /min Andreas KAPLE [facility] 10-03-2022 08:26-0400 SaO2% (BldA) [Mass fraction] 98 % Andreas KAPLE [facility] 10-03-2022 08:26-0400 Systolic blood pressure 120 mm[Hg] Andreas KAPLE [facility] 09-04-2022 08:24-0400 Blood Pressure Location Andreas KAPLE [facility] 09-04-2022 08:24-0400 Body temperature 98.24 [degF] Andreas KAPLE [facility] 09-04-2022 08:24-0400 Diastolic blood pressure 70 mm[Hg] Andreas KAPLE [facility] 09-04-2022 08:24-0400 Heart rate 90 /min Andreas KAPLE [facility] 09-04-2022 08:24-0400 Respiratory rate 16 /min Andreas KAPLE [facility] 09-04-2022 08:24-0400 SaO2% (BldA) [Mass fraction] 98 % Andreas KAPLE [facility] 09-04-2022 08:24-0400 Systolic blood pressure 122 mm[Hg] Andreas KAPLE [facility] 08-14-2022 09:01-0400 Diastolic blood pressure 87 mm[Hg] Andrew Zumbar [facility] 08-14-2022 09:01-0400 Diastolic blood pressure 101 mm[Hg] Andrew Zumbar [facility] 08-14-2022 09:01-0400 Heart rate 97 /min Andrew Zumbar [facility] 08-14-2022 09:01-0400 Heart rate 98 /min Andrew Zumbar [facility] 08-14-2022 09:01-0400 Mean blood pressure 101 mm[Hg] Andrew Zumbar [facility] 08-14-2022 09:01-0400 Respiratory rate 14 /min Andrew Zumbar [facility] 08-14-2022 09:01-0400 Respiratory rate 16 /min Andrew Zumbar [facility] 08-14-2022 09:01-0400 Systolic blood pressure 128 mm[Hg] Andrew Zumbar [facility] 08-14-2022 09:01-0400 Systolic blood pressure 137 mm[Hg] Andrew Zumbar [facility] 08-04-2022 12:47-0400 Blood Pressure Location Andreas KAPLE [facility] 08-04-2022 12:47-0400 Body temperature 98.24 [degF] Andreas KAPLE [facility] 08-04-2022 12:47-0400 Diastolic blood pressure 78 mm[Hg] Andreas KAPLE [facility] 08-04-2022 12:47-0400 Heart rate 100 /min Andreas KAPLE [facility] 08-04-2022 12:47-0400 Respiratory rate 20 /min Andreas KAPLE [facility] 08-04-2022 12:47-0400 SaO2% (BldA) [Mass fraction] 100 % Andreas KAPLE [facility] 08-04-2022 12:47-0400 Systolic blood pressure 136 mm[Hg] Andreas KAPLE [facility] 07-09-2022 15:16-0500 Diastolic blood pressure 90 mm[Hg] Andrew Zumbar [facility] 07-09-2022 15:16-0500 Heart rate 99 /min Andrew Zumbar [facility] 07-09-2022 15:16-0500 Mean blood pressure 105 mm[Hg] Andrew Zumbar [facility] 07-09-2022 15:16-0500 Systolic blood pressure 134 mm[Hg] Andrew Zumbar [facility] 06-30-2022 11:32-0500 Diastolic blood pressure 76 mm[Hg] Andreas KAPLE [facility] 06-30-2022 11:32-0500 Heart rate 85 /min Andreas KAPLE [facility] 06-30-2022 11:32-0500 Respiratory rate 20 /min Andreas KAPLE [facility] 06-30-2022 11:32-0500 SaO2% (BldA) [Mass fraction] 96 % Andreas KAPLE [facility] 06-30-2022 11:32-0500 Systolic blood pressure 104 mm[Hg] Andreas KAPLE [facility] 06-17-2022 21:00-0500 Diastolic blood pressure 91 mm[Hg] Musa Jennifer [facility] 06-17-2022 21:00-0500 Heart rate 78 /min Musa Jennifer [facility] 06-17-2022 21:00-0500 Mean blood pressure 110 mm[Hg] Musa Jennifer [facility] 06-17-2022 21:00-0500 Respiratory rate 20 /min Musa Jennifer [facility] 06-17-2022 21:00-0500 SaO2% (BldA) [Mass fraction] 100 % Musa Jennifer [facility] 06-17-2022 21:00-0500 Systolic blood pressure 148 mm[Hg] Musa Jennifer [facility] 06-17-2022 18:59-0500 Body temperature 98.24 [degF] Musa Jennifer [facility] 06-17-2022 18:59-0500 Diastolic blood pressure 101 mm[Hg] Musa Jennifer [facility] 06-17-2022 18:59-0500 Heart rate 89 /min Musa Jennifer [facility] 06-17-2022 18:59-0500 Respiratory rate 18 /min Musa Jennifer [facility] 06-17-2022 18:59-0500 SaO2% (BldA) [Mass fraction] 99 % Musa Jennifer [facility] 06-17-2022 18:59-0500 Systolic blood pressure 153 mm[Hg] Musa Jennifer [facility] 05-30-2022 09:02-0500 Blood Pressure Location Ting Klonk [facility] 05-30-2022 09:02-0500 Body temperature 97.7 [degF] Ting Klonk [facility] 05-30-2022 09:02-0500 Diastolic blood pressure 84 mm[Hg] Ting Klonk [facility] 05-30-2022 09:02-0500 Heart rate 73 /min Ting Klonk [facility] 05-30-2022 09:02-0500 SaO2% (BldA) [Mass fraction] 98 % Ting Klonk [facility] 05-30-2022 09:02-0500 Systolic blood pressure 134 mm[Hg] Ting Klonk [facility] 05-20-2022 18:03-0500 Body temperature 98.06 [degF] Jayson Duarte [facility] 05-20-2022 18:03-0500 Diastolic blood pressure 100 mm[Hg] Jayson Duarte [facility] 05-20-2022 18:03-0500 Heart rate 109 /min Jayson Duarte [facility] 05-20-2022 18:03-0500 Respiratory rate 18 /min Jayson Duarte [facility] 05-20-2022 18:03-0500 SaO2% (BldA) [Mass fraction] 98 % Jayson Duarte [facility] 05-20-2022 18:03-0500 Systolic blood pressure 151 mm[Hg] Jayson Duarte [facility] 05-13-2022 15:03-[address] [facility] 05-13-2022 15:03-0500 Body temperature 98.42 [degF] [facility] 05-13-2022 15:03-0500 Diastolic blood pressure 91 mm[Hg] [facility] 05-13-2022 15:03-0500 Heart rate 98 /min [facility] 05-13-2022 15:03-0500 Mean blood pressure 111 mm[Hg] [facility] 05-13-2022 15:03-0500 Respiratory rate 18 /min [facility] 05-13-2022 15:03-0500 SaO2% (BldA) [Mass fraction] 97 % [facility] 05-13-2022 15:03-0500 Systolic blood pressure 150 mm[Hg] [facility] 05-06-2022 14:54-[address] [facility] 05-06-2022 14:54-0500 Body temperature 98.42 [degF] [facility] 05-06-2022 14:54-0500 Diastolic blood pressure 85 mm[Hg] [facility]-06-2022 14:54-0500 Heart rate 100 /min [facility] 05-06-2022 14:54-0500 Mean blood pressure 105 mm[Hg] [facility] 05-06-2022 14:54-0500 Respiratory rate 18 /[facility]-06-2022 14:54-0500 SaO2% (BldA) [Mass fraction] 98 % [facility] 05-06-2022 14:54-0500 Systolic blood pressure 145 mm[Hg] [facility] 04-30-2022 09:18-0500 Heart rate 113 /min [facility] 04-30-2022 09:18-0500 SaO2% (BldA) [Mass fraction] 97 % [facility] 04-30-2022 09:18-0500 Respiratory rate 18 /min [facility] 04-30-2022 09:18-0500 Body temperature 98.24 [degF] [facility] 04-30-2022 09:18-0500 Diastolic blood pressure 80 mm[Hg] [facility] 04-30-2022 09:18-0500 Mean blood pressure 94 mm[Hg] [facility] 04-30-2022 09:18-0500 Systolic blood pressure 123 mm[Hg] [facility] 04-30-2022 09:18-0500 Body temperature 98.24 [degF] [facility] 12-23-2021 09:42-0400 Blood Pressure Location Alyssa HARMEET [facility] 12-23-2021 09:42-0400 Diastolic blood pressure 90 mm[Hg] Alyssa GA [facility] 12-23-2021 09:42-0400 Heart rate 96 /min Alyssa GA [facility] 12-23-2021 09:42-0400 Respiratory rate 18 /min Alyssa GA [facility] 12-23-2021 09:42-0400 SaO2% (BldA) [Mass fraction] 98 % Alyssa GA [facility] 12-23-2021 09:42-0400 Systolic blood pressure 137 mm[Hg] Alyssa GA [facility] 12-03-2021 10:55-0400 Blood Pressure Location Andreas RUIZLE [facility] 12-03-2021 10:55-0400 Body temperature 98.42 [degF] Andreas KAPLE [facility] 12-03-2021 10:55-0400 Diastolic blood pressure 70 mm[Hg] Andreas KAPLE [facility] 12-03-2021 10:55-0400 Heart rate 83 /min Andreas KAPLE [facility] 12-03-2021 10:55-0400 Respiratory rate 18 /min Andreas KAPLE [facility] 12-03-2021 10:55-0400 SaO2% (BldA) [Mass fraction] 98 % Andreas KAPLE [facility] 12-03-2021 10:55-0400 Systolic blood pressure 122 mm[Hg] Andreas ECKERT [facility] 12-02-2021 11:30-0400 Diastolic blood pressure 86 mm[Hg] [facility] 12-02-2021 11:30-0400 Heart rate 73 /min [facility] 12-02-2021 11:30-0400 Respiratory rate 18 /min [facility] 12-02-2021 11:30-0400 SaO2% (BldA) [Mass fraction] 97 % [facility] 12-02-2021 11:30-0400 Systolic blood pressure 115 mm[Hg] [facility] 12-02-2021 11:00-0400 Diastolic blood pressure 60 mm[Hg] [facility] 12-02-2021 11:00-0400 Diastolic blood pressure 98 mm[Hg] [facility] 12-02-2021 11:00-0400 Heart rate 74 /min [facility] 12-02-2021 11:00-0400 SaO2% (BldA) [Mass fraction] 98 % [facility] 12-02-2021 11:00-0400 SaO2% (BldA) [Mass fraction] 96 % [facility] 12-02-2021 11:00-0400 Systolic blood pressure 107 mm[Hg] [facility] 12-02-2021 11:00-0400 Systolic blood pressure 136 mm[Hg] [facility] 12-02-2021 10:30-0400 Heart rate 71 /min [facility] 12-02-2021 10:30-0400 Respiratory rate 20 /min [facility] 12-02-2021 09:30-0400 Mean blood pressure 74 mm[Hg] [facility] 12-02-2021 08:57-0400 gluc 172 mg/[facility]-02-2021 08:57-0400 [facility] 12-02-2021 08:49-0400 Body temperature 98.42 [degF] [facility] 11-28-2021 21:00-0400 Diastolic blood pressure 72 mm[Hg] Tao David [facility] 11-28-2021 21:00-0400 Heart rate 73 /min Tao David [facility] 11-28-2021 21:00-0400 Systolic blood pressure 135 mm[Hg] Tao David [facility] 11-28-2021 18:26-0400 Body temperature 97.34 [degF] Tao David [facility] 11-28-2021 18:26-0400 Diastolic blood pressure 96 mm[Hg] Tao David [facility] 11-28-2021 18:26-0400 Heart rate 86 /min Tao David [facility] 11-28-2021 18:26-0400 Respiratory rate 14 /min Tao David [facility] 11-28-2021 18:26-0400 SaO2% (BldA) [Mass fraction] 100 % Tao David [facility] 11-28-2021 18:26-0400 Systolic blood pressure 141 mm[Hg] Tao David [facility] 11-21-2021 08:18-0400 Diastolic blood pressure 83 mm[Hg] Andrew Zumbar [facility] 11-21-2021 08:18-0400 Heart rate 106 /min Andrew Zumbar [facility] 11-21-2021 08:18-0400 Mean blood pressure 99 mm[Hg] Andrew Fuller [facility] 11-21-2021 08:18-0400 Respiratory rate 20 /min Andrew Fuller [facility] 11-21-2021 08:18-0400 Systolic blood pressure 130 mm[Hg] Andrew Fuller [facility] 08-29-2021 20:59-0400 Diastolic blood pressure 85 mm[Hg] [facility] 08-29-2021 20:59-0400 Heart rate 68 /min [facility] 08-29-2021 20:59-0400 Mean blood pressure 100 mm[Hg] [facility] 08-29-2021 20:59-0400 Respiratory rate 18 /min [facility] 08-29-2021 20:59-0400 SaO2% (BldA) [Mass fraction] 100 % [facility] 08-29-2021 20:59-0400 Systolic blood pressure 131 mm[Hg] [facility] 08-29-2021 19:03-0400 Body temperature 97.7 [degF] [facility] 08-29-2021 19:03-0400 Diastolic blood pressure 87 mm[Hg] [facility] 08-29-2021 19:03-0400 Heart rate 84 /min [facility] 08-29-2021 19:03-0400 Respiratory rate 18 /min [facility] 08-29-2021 19:03-0400 SaO2% (BldA) [Mass fraction] 98 % [facility] 08-29-2021 19:03-0400 Systolic blood pressure 127 mm[Hg] Astrit Hajdari [facility] Encounters Encounter Date Encounter Type Care Provider Facility Start: 11-17-2024 ambulatory Serafin Roberson Facili ty:[facility] Start: 10-20-2024 End: 10-20-2024 Patient encounter procedure Dada PERKINS [facility] Start: 10-10-2024 End: 10-11-2024 Clinisync Result Encounter Dada Maddie DO Work Phone: [facility] Unsolicited Start: 10-10-2024 End: 10-11-2024 Clinisync Result Encounter Dada Maddie DO Work Phone: [facility] Unsolicited Start: 10-04-2024 End: 10-04-2024 ambulatory Serafin Roberson Facility:[facility] Start: 10-04-2024 End: 10-04-2024 Patient encounter procedure Serafin Roberson [facility] Start: 09-26-2024 End: 10-18-2024 External Result Encounter Dada Maddie DO Work Phone: [facility] Unsolicited Start: 09-26-2024 End: 10-18-2024 External Result Encounter Dada Maddie DO Work Phone: [facility] Unsolicited Start: 09-26-2024 End: 09-26-2024 Departed Referred Dada Maddie DO Work Phone: [facility] Start: 09-26-2024 End: 09-26-2024 [facility] Start: 09-26-2024 End: 09-26-2024 Patient encounter procedure Dada Maddie DO Work Phone: [facility] Comment on above: Pre-op examination; Menorrhagia with regular cycle; Abnormal uterine bleeding; Pelvic pain in female Start: 09-26-2024 End: 09-26-2024 Preprocedural examination done Dada Maddie DO Work Phone: [facility] Start: 09-12-2024 End: 09-12-2024 Bamboo flowsheet Dada Maddie DO Work Phone: [facility] Start: 09-12-2024 End: 09-12-2024 Bamboo flowsheet Dada Maddie DO Work Phone: [facility] Start: 09-12-2024 End: 09-12-2024 ambulatory DADA MADDIE Not Available Start: 09-12-2024 End: 09-12-2024 flow sheet Dada Maddie DO Work Phone: [facility] Comment on above: Dysmenorrhea; Pain in female genitalia on intercourse Start: 08-29-2024 End: 08-29-2024 ambulatory vita BurrJere Facility:[facility] Start: 08-29-2024 End: 08-29-2024 [facility] Start: 08-26-2024 End: 08-27-2024 ambulatory Hussain Varner Facility:[facility] Start: 08-26-2024 End: 08-27-2024 Patient encounter procedure Serafin Roberson [facility] Start: 08-19-2024 End: 08-19-2024 ambulatory Serafin Roberson Facility:[facility] Start: 08-12-2024 End: 08-12-2024 ambulatory Juanita Oneill Facility:[facility] Start: 07-08-2024 End: 07-08-2024 ambulatory Serafin Roberson Facility:[facility] Start: 07-08-2024 End: 07-08-2024 Patient encounter procedure Serafin Roberson [facility] Start: 07-05-2024 End: 07-05-2024 ambulatory Alyssa Young Facility:[facility] Start: 07-05-2024 End: 07-05-2024 Patient encounter procedure Alyssa Young [facility] Start: 06-06-2024 End: 06-06-2024 ambulatory Alyssa Young Facility:[facility] Start: 06-06-2024 End: 06-06-2024 Patient encounter procedure Alyssa Young [facility] Start: 06-03-2024 End: 06-03-2024 ambulatory Serafin Roberson Facility:[facility] Start: 06-03-2024 End: 06-03-2024 Patient encounter procedure Serafin Roberson [facility] Start: 05-27-2024 End: 05-27-2024 ambulatory DO Serafin Roberson Facility:[facility] Start: 05-27-2024 End: 05-27-2024 Patient encounter procedure Serafin Roberson [facility] Start: 04-04-2024 End: 04-04-2024 ambulatory Daja Marion Facility:[facility] Start: 04-04-2024 End: 04-04-2024 Patient encounter procedure Daja Marion [facility] Start: 03-31-2024 End: 03-31-2024 ambulatory Daja Marion Facility:[facility] Start: 03-31-2024 End: 03-31-2024 Patient encounter procedure Daja Marion [facility] Start: 02-10-2024 End: 02-10-2024 ambulatory DO Serafin Roberson Facility:[facility] Start: 02-10-2024 End: 02-10-2024 Patient encounter procedure Serafin Roberson [facility] Start: 11-09-2023 End: 11-09-2023 ambulatory TRAILER TECHNICIAN-C Stefaniabeatriz Edwards Facility:[facility] Start: 11-09-2023 End: 11-09-2023 Patient encounter procedure Stefania Edwards [facility] Start: 10-14-2023 End: 10-14-2023 ambulatory Rupesh Gandara Facility:[facility] Start: 10-14-2023 End: 10-14-2023 Pain Management Rupesh Gandara [facility] Start: 09-01-2023 End: 09-01-2023 Lab Drop off Maximilian Leach [facility] Start: 09-01-2023 End: 09-01-2023 ambulatory Maximilian Leach Facility:[facility] Start: 09-01-2023 End: 09-01-2023 Patient encounter procedure Maximilian Leach [facility] Start: 08-06-2023 End: 09-11-2023 Pre-admission assessment Daja Adkinsie Sanam [facility] Start: 07-13-2023 End: 09-11-2023 Pre-admission assessment Rupesh Gandara [facility] Start: 06-05-2023 End: 06-05-2023 ambulatory Daja Farmerpinosubha Facility:[facility] Start: 06-05-2023 End: 06-05-2023 Patient encounter procedure Daja Farmerpinosubha [facility] Start: 05-29-2023 End: 05-29-2023 Patient encounter procedure Daja Farmerpinosubha [facility] Start: 05-04-2023 End: 05-04-2023 Patient encounter procedure Daja Farmerpinosubha [facility] Start: 05-01-2023 End: 05-01-2023 Patient encounter procedure Hussain Varner [facility] Start: 02-05-2023 End: 02-05-2023 Patient encounter procedure Dada PERKINS [facility] Start: 01-16-2023 End: 01-16-2023 Patient encounter procedure Andreas ECKERT [facility] Start: 12-30-2022 End: 12-30-2022 Emergency department patient visit Tao Hernandez [facility] Start: 12-10-2022 End: 12-10-2022 Pain Management Andrew Jonny [facility] Start: 12-09-2022 End: 12-09-2022 Patient encounter procedure Andreas ECKERT [facility] Start: 11-26-2022 End: 11-26-2022 Lab Drop off Serafin Roberson [facility] Start: 11-26-2022 End: 11-26-2022 Patient encounter procedure Serafin Roberson [facility] Start: 11-13-2022 End: 11-13-2022 Patient encounter procedure Daja Harman Sanam [facility] Start: 11-13-2022 End: 11-13-2022 Pain Management Andrew Jonny [facility] Start: 11-04-2022 End: 11-04-2022 Patient encounter procedure Andreas ECKERT [facility] Start: 10-24-2022 End: 10-24-2022 Lab Drop off Andreas ECKERT [facility] Start: 10-24-2022 End: 10-24-2022 Patient encounter procedure Hussain Varner [facility] Start: 10-06-2022 End: 10-06-2022 Patient encounter procedure Hussain Varner [facility] Start: 10-03-2022 End: 10-03-2022 Patient encounter procedure Andreas ECKERT [facility] Start: 09-04-2022 End: 09-04-2022 Patient encounter procedure Andreas ECKERT [facility] Start: 08-14-2022 End: 08-14-2022 Patient encounter procedure Andreas ECKERT [facility] Start: 08-14-2022 End: 08-14-2022 Pain Management Andrew Henriquezeran [facility] Start: 08-04-2022 End: 08-04-2022 Patient encounter procedure Andreas ECKERT [facility] Start: 07-09-2022 End: 07-09-2022 Pain Management Andrew Zeran [facility] Start: 06-30-2022 End: 06-30-2022 Patient encounter procedure Andreas ECKERT [facility] Start: 06-17-2022 End: 06-17-2022 Emergency department patient visit Musa CarolineJustino Rodriguez [facility] Start: 05-30-2022 End: 05-30-2022 Patient encounter procedure Ting Muhammad [facility] Start: 05-20-2022 End: 05-20-2022 Emergency department patient visit Jayson Duarte [facility] Start: 05-13-2022 End: 05-13-2022 Patient encounter procedure Hussain Varner [facility] Start: 05-06-2022 End: 05-06-2022 Patient encounter procedure Hussain Varner [facility] Start: 04-30-2022 End: 04-30-2022 Patient encounter procedure Hussain Varner [facility] Start: 04-28-2022 End: 04-28-2022 Patient encounter procedure Hussain Varner [facility] Start: 12-23-2021 End: 12-23-2021 Patient encounter procedure Alyssa GA [facility] Start: 12-03-2021 End: 12-03-2021 Patient encounter procedure Andreas ECKERT [facility] Start: 12-02-2021 End: 12-02-2021 Emergency department patient visit Deepti Gee [facility] Start: 11-28-2021 End: 11-28-2021 Emergency department patient visit Tao Hernandez [facility] Start: 11-21-2021 End: 11-21-2021 Pain Management Andrew Fuller [facility] Start: 08-29-2021 End: 08-29-2021 Emergency department patient visit Deepti Gee [facility] Start: 03-18-2018 End: 03-19-2018 Patient encounter KOSTA HERNANDEZ Facility:[facility] Start: 08-17-2017 End: 08-18-2017 Patient encounter KOSTA HERNANDEZ Facility:[facility] Start: 08-17-2017 End: 08-18-2017 Patient encounter KOSTA HERNANDEZ Facility:[facility] Start: 07-17-2017 End: 07-18-2017 Patient encounter KOSTA HERNANDEZ Facility:[facility] Procedures Date Procedure Procedure Detail Performing Clinician Start: 10-10-2024 XR CHEST 2V Dada Maddie DO Work Phone: Start: 10-10-2024 ALL BASIC METABOLIC PANEL Dada Maddie DO Work Phone: Start: 10-10-2024 ECG 12-LEAD Dada Maddie DO Work Phone: Start: 09-26-2024 ENDOMETRIAL BIOPSY Dada Maddie DO Work Phone: Start: 09-26-2024 PATHOLOGY REQUEST FOR LAB MILDRED Dada Thais io DO Work Phone: Start: 03-05-2023 Microscopic observation [Identifier] in Cervix by Cyto stain Dada Maddie DO Work Phone: Start: 12-10-2022 Epidural injection of lumbar spine using fluoroscopic guidance Rupesh Gandara Comment on above: 75% relief Start: 08-14-2022 Injection of steroid into shoulder joint Andrew Henriquezeran Comment on above: 50% relief Start: 01-29-2022 [...] at 40% relief Start: 09-29-2019 Colonoscopy Dada Maddieswapna MITTAL Work Phone: Start: 09-29-2019 Biopsy of duodenum Deepti Gee Start: 09-29-2019 Cardioesophageal junction structure (body structure) Deepti Gee Start: 09-29-2019 Colonoscopy Deepti Gee Start: 09-29-2019 Esophagogastroduodenoscopy Deepti Bearden i Start: 09-29-2019 Polyp of sigmoid colon (disorder) Deepti Gee Start: 08-10-2019 Injection of trigger points Deepti espinoza Comment on above: B/L trap TPI [...] Right L4/5 Transforaminal Epidural Steroid Injection 8 Deepti Gee Comment on above: 75-80% Pain relief Start: 11-24-2018 Right L4/5 Transforaminal Epidural Steroid Injection 9 Andrew Fuller Comment on above: 75-80% Pain relief Start: 04-08-2018 botox injections for migraine 10 Andrew Fuller Comment on above: 100% relief. Start: 04-08-2018 botox injections for migraine 11 Andrew Fuller Comment on above: 100% relief. Start: 04-08-2018 [...] TPI Start: 02-07-2016 Trigger Point Injections 17 Astrit Haemilya ri Comment on above: in office cervical, thoracic and trapezi us Start: 02-07-2016 Trigger Point Injections 18 Andrew kumar Comment on above: in office cervical, thoracic and trapezi us Start: 02-07-2016 Trigger Point Injections 19 Andrew kumar Comment on above: in office cervical, thoracic and trapezi us Start: 02-07-2016 Trigger Point Injections 20 Rupesh Espinal mela Comment on above: in office cervical, thoracic [...] Screening for malign ant neoplasm of colon [facility] Start: 03-05-2028 Screening for malign ant neoplasm of cervix [facility] Start: 01-23-2025 Influenza vaccination Influenz a Vaccine (Season Ended) [facility] Start: 09-26-2024 End: 09-26-2024 Patient encounter procedure 09/26/2024 1:30 PM EDT Procedure Visit [facility] [address] [place] [address] [place] [address] Dada Perkins, [address] [place] [address] [facility] Start: 09-12-2024 End: 09-12-2025 aPTT in Blood by Coagulation assay APTT Lab Routine Dysmenorrhea Expected: 09/12/2024 (Approximate), Expires: 09/12/2025 [facility] Comment on above: Expected: 09/12/2024 (Approximate), Expires: 09/12/2025 Start: 09-12-2024 End: 09-12-2025 US Pelvis US Pelvis w/ TV Imaging Routine Dysmenorrhea Expected: 09/12/2024, Expires: 09/12/2025 [facility] Comment on above: Expected: 09/12/2024 , Expires: 09/12/2025 Start: 2017 Screening for malign ant neoplasm of breast Mammogram [facility] Start: 1977 Screening for malign ant neoplasm of colon [facility] CBC W Auto Different ial panel - Blood CBC and differential Lab Routine Dysmenorrhea Ordered: 09/12/2024 [facility] Work Phone: Comment on above: Ordered: 09/12/2024 hCG, quantitative, hCG, quantitative, Lab Routine Dysmenorrhea Ordered: 09/12/2024 [facility] Comment on above: Ordered: 09/12/2024 Hemoglobin A1c/Hemoglobin.total in Blood Hemoglobin A1c Lab Routine Dysmenorrhea Ordered: 09/12/2024 [facility] Comment on above: Ordered: 09/12/2024 Prothrombin time (PT ) in Blood by Coagulation assay Protime-INR Lab Routine Dysmenorrhea Ordered: 09/12/2024 [facility] Comment on above: Ordered: 09/12/2024 Thyrotropin [Units/volume] in Serum or Plasma TSH Lab Routine Dysmenorrhea Ordered: 09/12/2024 [facility] Comment on above: Ordered: 09/12/2024 Thyroxine (T4) free [Mass/volume] in Serum or Plasma T4, free Lab Routine Dysmenorrhea Ordered: 09/12/2024 [facility] Comment on above: Ordered: 09/12/2024 Immunizations Immunization Date Immunization Notes Care Provider Fa averyulisses 10-29-2020 SARS-CoV-2 (COVID-19 ) mRNA BNT-162b2 vax [facility] 10-08-2020 SARS-CoV-2 (COVID-19 ) mRNA BNT-162b2 vax [facility] 09-26-2020 SARS-CoV-2 (COVID-19 ) mRNA BNT-162b2 vax [facility] 08-15-2012 tetanus toxoid, reduced diphtheria toxoid, and acellular pertussis vaccine, adsorbed [facility] NEGATED: Highlighted row has not occurred!05-27-2024 influenza virus vaccine, unspecified formulation Serafin Roberson [facility] NEGATED: Highlighted row has not occurred!05-30-2022 influenza virus vaccine, unspecified formulation Ting Jb [facility] NEGATED: Highlighted row has not occurred!04-24-2020 influenza virus vaccine, unspecified formulation [facility] NEGATED: Highlighted row has not occurred!06-28-2019 influenza virus vaccine, live, attenuated, for intranasal use [facility] Payers Date Payer Category Payer Self-pay 2024 Private Health Insurance [id number] 2024 Unknown [id number] 2023 Unknown [id number] 2023 Unknown [id number] 2017 Unknown 1977 Unknown [id number] 2.16.840.1.773052.3.579.2.196 1977 Unknown [id number] 2.16.840.1.123241.3.579.2.196 1977 Unknown [id number] 2.16.840.1.849872.3.579.2. 1977 Unknown [id number] 2.16.840.1.858509.3.579.2. 1977 Unknown [id number] 2.16.840.1.479896.3.579.2. 1977 Unknown [id number] 2.16.840.1.509758.3.579.2. 1977 Unknown [id number] 2.16.840.1.502665.3.579.2 1977 Unknown [id number] 2.16.840.1.320609.3.579.2. 1977 Unknown [id number] 2.16840.1.396440.3.579.2 1977 Unknown [id number] 2.16840.1.706401.3.579.2 1977 Unknown [id number] 2.16840.1.921008.3.579.2 1977 Unknown [id number] 2.16.840.1.304905.3.579.2 1977 Unknown [id number] 2.16.840.1.251870.3.579.2 1977 Unknown [id number] 2.16840.1.785612.3.579.2 1977 Unknown [id number] 2.16.840.1.027671.3.579.2 1977 Unknown [id number] 2.16.840.1.091351.3.579.2 1977 Unknown [id number] 2.16.840.1.427964.3.579.2 1977 Unknown [id number] 2.16.840.1.472538.3.579.2 1977 Unknown [id number] 2.16.840.1.841803.3.579.2.727 1977 Unknown [id number] 2.16.840.1.129012.3.579.2.727 1977 Unknown [id number] 2.16.840.1.933137.3.579.2.727 1977 Unknown [id number] 2.16.840.1.131728.3.579.2.727 1977 Unknown [id number] 2.16.840.1.215541.3.579.2.727 1977 Unknown [id number] 2.16.840.1.852322.3.579.2.125 9 1977 Unknown [id number] 2.16.840.1.508069.3.579.2.125 9 1977 Unknown [id number] 2.16.840.1.787862.3.579.2.727 1977 Unknown [id number] 2.16.840.1.268109.3.579.2.727 Medicaid [employer] [id number] Unknown [id number] 2.16.840.1.671331.3.579.2.531 Social History Date Type Detail Facility Start: 09-19-2020 End: 08-29-2024 Tobacco smoking status Ex-smoker (finding) [facility] Start: 04-23-2023 End: 09-12-2024 Sex Assigned At Female [facility] Tobacco smoking status Never [facility] Sex Assigned At [facility] Start: 12-15-2011 End: 09-28-2024 Sex Female (finding) [facility] End: 06-18-2020 History of tobacco use Current smoker [facility] End: 06-18-2020 History of tobacco use Cigarette Smoker [facility] Start: 01-19-2023 Tobacco use and exposure Smokeless tobacco non-user [facility] Start: 04-23-2023 End: 09-12-2024 Alcoholic beverage intake Lifetime non-drinker (finding) [facility] Start: 04-23-2023 End: 09-12-2024 History of Social function [facility] Start: 01-19-2023 Alcohol Comment Caffeine: 1-2 cups per day [facility] Start: 1977 Sex assigned at Not on file [facility] Tobacco smoking stat [facility] Unknown if ever smoked [facility] Work Phone: Start: 1977 Sex Assigned At Female F [facility] Medical Equipment Procedure Code Equipment Code Equipment Origin al Text Equipment Identifier Dates syringes, See Instructions, 1 kit(s), 1, syringes for B12 injections. 3 ml, 25 gauge, 1 inch needle qs for the B12 injections with 1 refill., [employer] #[facility], Supply, 165, cm, 04/04/24 10:00:00 EST, Height/Length Dosing, 116.6, kg, 04/04/24 10:00:00 EST, Weight Dosing Start: 04-04-2024 syringes, See Instructions, 1 kit(s), 1, syringes for B12 injections. 3 ml, 25 gauge, 1 inch needle qs for the B12 injections with 1 refill., [employer] [facility] [employer] #[facility], Supply, 165, cm, 04/04/24 10:00:00 EST, Height/Length Dosing, 116.6, kg, 04/04/24 10:00:00 EST, Weight Dosing Start: 04-04-2024 syringes, See Instructions, 1 kit(s), 1, syringes for B12 injections. 3 ml, 25 gauge, 1 inch needle qs for the B12 injections with 1 refill., [employer], Supply, 165, cm, 04/04/24 10:00:00 EST, Height/Length Dosing, 116.6, kg, 04/04/24 10:00:00 EST, Weight Dosing Start: 04-04-2024 syringes, See Instructions, 1 kit(s), 1, syringes for B12 injections. 3 ml, 25 gauge, 1 inch needle qs for the B12 injections with 1 refill., [employer] [facility], Supply, 165, cm, 04/04/24 10:00:00 EST, Height/Length Dosing, 116.6, kg, 04/04/24 10:00:00 EST, Weight Dosing Start: 04-04-2024 syringes, See Instructions, 1 kit(s), 1, syringes for B12 injections. 3 ml, 25 gauge, 1 inch needle qs for the B12 injections with 1 refill., [facility], Supply, 165, cm, 04/04/24 10:00:00 EST, Height/Length Dosing, 116.6, kg, 04/04/24 10:00:00 EST, Weight Dosing Start: 04-04-2024 syringes, See Instructions, 1 kit(s), 1, syringes for B12 injections. 3 ml, 25 gauge, 1 inch needle qs for the B12 injections with 1 refill., [employer], Supply, 165, cm, 04/04/24 10:00:00 EST, Height/Length Dosing, 116.6, kg, 04/04/24 10:00:00 EST, Weight Dosing Start: 04-04-2024 syringes, See Instructions, 1 kit(s), 1, syringes for B12 injections. 3 ml, 25 gauge, 1 inch needle qs for the B12 injections with 1 refill., [facility], Supply, 165, cm, 04/04/24 10:00:00 EST, Height/Length Dosing, 116.6, kg, 04/04/24 10:00:00 EST, Weight Dosing Start: 04-04-2024 Functional Status Date Assessment Result Facility 10-04-2024 Functional Status N/A [facility] 07-08-2024 Functional Status N/A [facility] 07-05-2024 Functional Status N/A [facility] 06-06-2024 Functional Status N/A [facility] 06-03-2024 Functional Status N/A [facility] 05-27-2024 Functional Status N/A [facility] 11-09-2023 Functional Status N/A [facility] 10-14-2023 Functional Status N/A [facility] 01-16-2023 Functional Status N/A [facility] 12-30-2022 Functional Status N/A [facility] 12-10-2022 Functional Status N/A [facility] 12-09-2022 Functional Status N/A [facility] 11-26-2022 Functional Status N/A [facility] 11-13-2022 Functional Status N/A [facility] 11-04-2022 Functional Status N/A [facility] 10-03-2022 Functional Status N/A [facility] 09-04-2022 Functional Status N/A [facility] 08-14-2022 Functional Status N/A [facility] 08-04-2022 Functional Status N/A [facility] 07-09-2022 Functional Status N/A [facility] 06-30-2022 Functional Status N/A [facility] 06-17-2022 Functional Status N/A [facility] 05-30-2022 Functional Status N/A [facility] 05-20-2022 Functional Status N/A [facility] 12-23-2021 Functional Status N/A [facility] 12-03-2021 Functional Status N/A [facility] 12-02-2021 Functional Status N/A [facility] 11-28-2021 Functional Status N/A [facility] 11-21-2021 Functional Status N/A [facility] Clinical Notes 04-30-2021 to 09-28-2024 Norma Zapata LPN - 09/26/2024 1:30 PM EDTSsonal Zapata LPN - 09/12/2024 10:20 AM EDT Note Date & Type Note Facility 09-28-2024 Hospital Discharge instructions Follow Up Care 09/28/2024 13:33:04 With:Serafin Roberson DO, FAM, PED Address: [address] [place] [address] [phone] When:3 months Comments:3 month - controlled med [...] most daysWhen you see providers outside of [facility], please request that they send office visit notes every time you're seen there - this helps us take better care of youF/u 3 months [facility] [place] 09-26-2024 History of Present [...] injection of lumbar spine using fluoroscopic guidance [place] TONSILLECTOMY & ADENOIDECTOMY <AGE 14 1983 TRIGGER [...] nursing note reviewed. Exam conducted with a train operations supervisor present. Vitals: Estimated body mass index is [...] reviewed, and patient is to proceed to [facility] OR. Patient does not need to have bilateral salpingectomy at time of procedure due to spouse having a vasectomy. Follow Up: Patient is to follow up between 1-2 weeks post operative to assess proper healing and recovery from procedure. Documented by Norma Zapata LPN on behalf of: Dada Perkins DO documented in this encounter [facility] 09-12-2024 History of Present illness [...] Abnormal uterine bleeding Acanthosis nigricans Allergic asthma (CMS/HCC) Allergic rhinitis due to pollen Arthritis of spine Chronic idiopathic constipation Cigarette smoker Colon polyp Cystocele without uterine prolapse Emphysema lung (CMS/HCC) Fibrocystic breast changes Fibromyalgia OBI (generalized anxiety disorder) (CMS/HCC) GERD (gastroesophageal reflux disease) Glucose intolerance Heart palpitations Hematoma Hemorrhoids Hemorrhoids Hirsutism HTN (hypertension) (CMS/HCC) Hyperlipidemia (CMS/HCC) Hypokalemia Iron deficiency Leg cramps Lumbar radiculopathy Major depressive disorder ([facility]) Microcytic anemia Migraines ([facility]) Morbid obesity ([facility]) Morbid obesity with BMI of 45.0-49.9, adult ([facility]) Orthostatic syncope ERNST (obstructive sleep apnea) PCOS (polycystic ovarian syndrome) Polycystic ovarian syndrome Pressure sore of hip Schatzki's ring Sinusitis Vertigo Vitamin B 12 deficiency HISTORY PAST MEDICAL HISTORY SOCIAL HISTORY Past Medical History: Diagnosis Date Abnormal uterine bleeding Acanthosis nigricans Allergic asthma ([facility]) intermittent Allergic rhinitis due to pollen Arthritis of spine Chronic idiopathic constipation Cigarette smoker Colon polyp Cystocele without uterine prolapse Emphysema lung ([facility]) Fibrocystic breast changes Fibromyalgia OBI (generalized anxiety disorder) ([facility]) GERD (gastroesophageal reflux disease) Glucose intolerance Heart palpitations Hematoma Nontraumatic hematoma Hemorrhoids Hemorrhoids Hirsutism HTN (hypertension) ([facility]) Hyperlipidemia ([facility]) Hypokalemia Iron deficiency Leg cramps Lumbar radiculopathy Major depressive disorder ([facility]) Microcytic anemia Migraines ([facility]) Morbid obesity ([facility]) Morbid obesity with BMI of 45.0-49.9, adult ([facility]) Orthostatic syncope ERNST (obstructive sleep apnea) PCOS [...] injection of lumbar spine using fluoroscopic guidance [place] TONSILLECTOMY & ADENOIDECTOMY <AGE 14 1983 TRIGGER [...] nursing note reviewed. Exam conducted with a train operations supervisor present. Vitals: Estimated body mass index is [...] Dada Perkins DO documented in this encounter [facility] 08-29-2024 Hospital Discharge instructions Patient [...] seconds. You may also use a hand refining still operator. 2.Wipe the injection site with an alcohol [...] provider. Document Revised: 03/06/2023 Document Reviewed: 03/06/2023 [employer] Patient Education 2023 [employer]. 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 She goes [...] not been go (more content not included)... [facility] 08-12-2024 Note Patient Education Pulmonary Medicine Acute [...] Follow these instructions at home: ??? Take cdbo-pni-hywbghl and prescription medicines only as told by [...] and water are not available, use hand refining still operator. ??? Avoid contact with people who have [...] normal. ??? Drinking (more content not included)... [facility] 07-08-2024 Hospital Discharge instructions Patient Education 07/08/2024 [...] primary care provider or a mental health career manager. Your health care provider may use a [...] Behavioral management. You may work with a nutritional health coach who is specially trained to help people with ADHD manage and organize activities and function more effectively. Follow these instructions at home: Medicines Take scsu-vbi-bdjphir and prescription medicines only as told by [...] Attention Deficit Disorder Association (ADDA): add.org National [place] of Mental Health (NIMH): nimh.nih.gov Contact a [...] the National Suicide Prevention Lifeline at or 332. This is open 24 hours a day Text the Crisis Text Line at 593055. Summary ADHD is a mental health disorder [...] provider. Document Revised: 08/29/2022 Document Reviewed: 08/29/2022 [employer] Patient Education 2023 Glycode. Follow Up Care 05/27/2024 10:19:50 With:Serafin Roberson DO, FAM, PED Address: [address] [place] [address] [phone] When:3 months Comments:20 min slotTo go instructions:Increase bupropion to 300mgWe adjusted your med list to show that you're taking 20mg of prozac------*When you see providers outside of [facility], please request that they send office visit [...] starting at age 52Follow up 3 months [facility] [place] 07-08-2024 Note Patient Education Mental and Behavioral [...] primary care provider or a mental health career manager. Your health care provider may use a [...] Behavioral management. You may work with a nutritional health coach who is specially trained to help people with ADHD manage and organize activities and function more effectively. Follow these instructions at home: Medicines ??? Take tecg-sxr-zdfjsba and prescription medicines only as told by [...] closely with y (more content not included)... [facility] 07-05-2024 Evaluation + Plan note Extrac divine [...] [facility] Appointment Type: Open Appointment Date:08/08/2024 08:30:00 AM Scheduled Provider:Alyssa Young PA-C Location:.Pain [facility] Appointment Type:Pain Management - Follow Up (FT) Appointment Date:08/08/2024 11:20:00 AM Scheduled Provider:Augustus MEDEL, Jeffy Galvan Location:.ONCOLOGY Appointment Type:ONC Office Visit 20 (FT) Future Scheduled Tests Laboratory* CBC w/ Auto Diff 07/04/24 * Comprehensive Metabolic Panel 07/04/24 * Ferritin 07/04/24 * Folate Level 07/04/24 * Iron Level 07/04/24 * Iron Percent Saturation 07/04/24 * Transferrin 07/04/24 * Vitamin B12 Level 07/04/24 [facility] 02-11-2025 NoteConsultation Note Patient: KAYLA MONTANA [...] taken Tylenol, Excedrin, Advil, naproxen, and other gypi-leq-lstfsai medications that any relief. She is not [...] leg pain that she also rates a 3???11/01. She would be interested in undergoing the [...] puff(s), Inhalation, q6hr, 18 gm, Refill(s) 0, [facility]/pharmacy #[id number], 165, cm, 11/09/23 16:50:00 EDT, Height/Length Dosing, 116.7, kg, 11/09/23 16:50:00 EDT, Weight Dosing FLUoxetine 20 mg Cap: 20 mg = 1 cap(s), Oral, Daily, # 30 cap(s), Refills(s) 0, other reason (Rx) Flonase 0.05 mg/inh Somers: 2 spray(s), Nasal, Daily, 16 gram, Refill(s) 5, each nostril, [facility]/pharmacy #[id number], 165, cm, 05/30/22 9:05:00 EST, Height/Length Dosing, 125, kg, 05/30/22 9:05:00 EST, WeightDosing Protonix 40 mg Tab-DR: 40 mg, Oral, Daily, # 90 tab(s), Refills(s) 1, Pharmacy: [facility]/pharmacy #[id number],165, cm, 05/04/23 10:42:00 EST, Height/Length Dosing, 122, kg, 05/04/23 10:42:00 EST, Weight Dosing Singulair 10 mg Tab: 10 mg = 1 tab(s), Oral, qPM, # 90 tab(s), Refills(s) 4, Pharmacy: [facility] #37, 165, cm, 06/03/24 13:33:00 EST, Height/Length Dosing, 118.7, kg, 06/03/24 13:33:00 EST, Weight Dosing buPROPion 150 mg/24 hours XL Tab: 150 mg = 1 tab(s), Oral, q24hr, # 30 tab(s), Refills(s) 5, Pharmacy: [facility] #37, 165, cm, 05/27/24 8:56:00 EST, Height/Length Dosing, 119.7, kg, 05/27/24 8:56:00 EST, Weight Dosing cyanocobalamin 1000 mcg/mL Inj: 1,000 mcg = 1 mL, IntraMuscular, qMonth, Also dispense 3 ml syringes 25 gauge 1 needle, quantity sufficient for injections., # 10 mL, Refills(s) 1, Pharmacy: [facility]/pharmacy #[id number], 165, cm, 01/16/23 10:39:00 EDT, Height/Length Dosing, 118, kg, 01/16/23... cyclobenzaprine 10 mg Tab: 10 mg = 1 tab(s), Oral, TID, PRN for spasm, # 90 tab(s), Refills(s) 2, Pharmacy: [facility] #37, 165, cm, 06/03/24 13:33:00 EST, Height/Length Dosing, 118.7, kg, 06/03/24 13:33:00 EST, Weight Dosing folic acid 1 mg Tab: 1 mg = 1 tab(s), Oral, Daily, # 90 tab(s), Refills(s) 3, Pharmacy: [facility] #37, 165, cm, 04/04/24 10:00:00 EST, Height/Length Dosing, 116.6, kg, 04/04/24 10:00:00 EST, Weight Dosing gabapentin 600 mg Tab: 600 mg = 1 tab(s), Oral, BID, X 30 day(s), # 60 tab(s), Refills(s) 2, Pharmacy: [facility] #37, 165, cm, 04/04/24 10:00:00 EST, Height/Length Dosing, 116.6, kg, 04/04/24 10:00:00 EST, Weight Dosing hydrochlorothiazide 25 mg Tab: 25 mg = 1 tab(s), Oral, qAM, # 90 tab(s), Refills(s) 4, Pharmacy: [facility] #37, 165, cm, 06/03/24 13:33:00 EST, Height/Length Dosing, 118.7, kg, 06/03/24 13:33:00 EST, Weight Dosing ibuprofen 800 mg Tab: 800 mg = 1 tab(s), Oral, BID, PRN as needed for pain, # 60 tab(s), Refills(s)0, Pharmacy: [facility]/pharmacy #[id number], 165, cm, 11/21/21 8:25:00 EDT, Height/Length Dosing, 122.5, kg, 11/21/21 8:25:00 EDT, Weight Dosing meclizine 12.5 mg Tab: 12.5 mg = 1 tab(s), Oral, TID, PRN for dizziness, # 30 tab(s), Refills(s) 3,Pharmacy: [facility]/pharmacy #[id number], 165, cm, 05/30/22 9:05:00 EST, Height/Length Dosing, 125, kg, 05/30/22 9:05:00 EST, Weight Dosing metformin 500 mg Tab: 500 mg = 1 tab(s), Oral, BID, # 90 tab(s), Refills(s) 4, Pharmacy: [facility]/pharmacy #[id number], 165, cm, 11/09/23 16:50:00 EDT, Height/Length Dosing, 116.7, kg, 11/09/23 16:50:00 EDT, Weight Dos (more content not included)...[facility]Result Comment: Electronically Signed By: Alyssa Young PA-C\.br\Date and Time Signed: 07/05/24 09:06 [id number] Evaluation + Plan noteExtracted from: Title:Pain Managment [...] has trialed and failed a multitude of luzu-gtf-sexmrkp medications including anti-inflammatory medications. She is gabapentin [...] Appointment Date:07/04/2024 09:40:00 AM Scheduled Provider:Daja Ho [facility] Type:[facility]C Office Visit 20 (FT) Appointment Date:07/08/2024 09:20:00 AM Scheduled Provider:Serafin Roberson DO Location:[facility] Appointment Type: Open Future Scheduled Tests Laboratory* CBC w/ Auto Diff 07/05/24 * Comprehensive Metabolic Panel 07/05/24 * Ferritin 07/05/24 * Folate Level 07/05/24 * Iron Level 07/05/24 * Iron Percent Saturation 07/05/24 * Transferrin 07/05/24 * Vitamin B12 Level 07/05/24 [facility] 01-13-2025 NoteConsultation Note Patient: KAYLA MONTANA [...] taken Tylenol, Excedrin, Advil, naproxen, and other rgfx-fkf-ezcvylb medications that any relief. She is not [...] puff(s), Inhalation, q6hr, 18 gm, Refill(s) 0, [facility]/pharmacy #[id number], 165, cm, 11/09/23 16:50:00 EDT, Height/Length Dosing, 116.7, kg, 11/09/23 16:50:00 EDT, Weight Dosing Ciprodex 0.3%-0.1% Susp-Otic: 4 drop(s), Otic, BID for 7 day(s), 7.5 mL, Refill(s) 1, [facility] #37, 165, cm, 06/03/24 13:33:00 EST, Height/Length Dosing, 118.7, kg, 06/03/24 13:33:00 EST, Weight Dosing FLUoxetine 20 mg Cap: 20 mg = 1 cap(s), Oral, Daily, # 30 cap(s), Refills(s) 0, other reason (Rx) Flonase 0.05 mg/inh Somers: 2 spray(s), Nasal, Daily, 16 gram, Refill(s) 5, each nostril, [facility]/pharmacy #[id number], 165, cm, 05/30/22 9:05:00 EST, Height/Length Dosing, 125, kg, 05/30/22 9:05:00 EST, WeightDosing Protonix 40 mg Tab-DR: 40 mg, Oral, Daily, # 90 tab(s), Refills(s) 1, Pharmacy: [facility]/pharmacy #[id number],165, cm, 05/04/23 10:42:00 EST, Height/Length Dosing, 122, kg, 05/04/23 10:42:00 EST, Weight Dosing Singulair 10 mg Tab: 10 mg = 1 tab(s), Oral, qPM, # 90 tab(s), Refills(s) 4, Pharmacy: [facility] #37, 165, cm, 06/03/24 13:33:00 EST, Height/Length Dosing, 118.7, kg, 06/03/24 13:33:00 EST, Weight Dosing buPROPion 150 mg/24 hours XL Tab: 150 mg = 1 tab(s), Oral, q24hr, # 30 tab(s), Refills(s) 5, Pharmacy: [facility] #37, 165, cm, 05/27/24 8:56:00 EST, Height/Length Dosing, 119.7, kg, 05/27/24 8:56:00 EST, Weight Dosing cyanocobalamin 1000 mcg/mL Inj: 1,000 mcg = 1 mL, IntraMuscular, qMonth, Also dispense 3 ml syringes 25 gauge 1 needle, quantity sufficient for injections., # 10 mL, Refills(s) 1, Pharmacy: [facility]/pharmacy #[id number], 165, cm, 01/16/23 10:39:00 EDT, Height/Length Dosing, 118, kg, 01/16/23... cyclobenzaprine 10 mg Tab: 10 mg = 1 tab(s), Oral, TID, PRN for spasm, # 90 tab(s), Refills(s) 2, Pharmacy: [facility] #37, 165, cm, 06/03/24 13:33:00 EST, Height/Length Dosing, 118.7, kg, 06/03/24 13:33:00 EST, Weight Dosing folic acid 1 mg Tab: 1 mg = 1 tab(s), Oral, Daily, # 90 tab(s), Refills(s) 3, Pharmacy: [facility] #37, 165, cm, 04/04/24 10:00:00 EST, Height/Length Dosing, 116.6, kg, 04/04/24 10:00:00 EST, Weight Dosing gabapentin 600 mg Tab: 600 mg = 1 tab(s), Oral, BID, X 30 day(s), # 60 tab(s), Refills(s) 2, Pharmacy: [facility] #37, 165, cm, 04/04/24 10:00:00 EST, Height/Length Dosing, 116.6, kg, 04/04/24 10:00:00 EST, Weight Dosing hydrochlorothiazide 25 mg Tab: 25 mg = 1 tab(s), Oral, qAM, # 90 tab(s), Refills(s) 4, Pharmacy: [facility] #37, 165, cm, 06/03/24 13:33:00 EST, Height/Length Dosing, 118.7, kg, 06/03/24 13:33:00 EST, Weight Dosing ibuprofen 800 mg Tab: 800 mg = 1 tab(s), Oral, BID, PRN as needed for pain, # 60 tab(s), Refills(s)0, Pharmacy: [facility]/pharmacy #[id number], 165, cm, 11/21/21 8:25:00 EDT, Height/Length Dosing, 122.5, kg, 11/21/21 8:25:00 EDT, Weight Dosing meclizine 12.5 mg Tab: 12.5 mg = 1 tab(s), Oral, TID, PRN for dizziness, # 30 tab(s), Refills(s) 3,Pharmacy: [facility]/pharmacy #[id number], 165, cm, 05/30/22 9:05:00 EST, Height/Length Dosing, 125, kg, 05/30/22 9:05:00 EST, Weight Dosing metformin 500 mg Tab: 500 mg = 1 (more content not included)...[facility]Comment on above:Result Comment: Electronically Signed By: Alyssa Young PA-C\.br\Date and Time Signed: 06/06/24 09:21 [id number] NoteOncology Progress Note Chief Complaint Anemia; here [...] 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 She goes [...] last week. This previously (more content not included)...[facility] Hospital Discharge instructions Follow Up Care 03/18/2024 13:22:21 With:Sanam PATELBC, Daja Harman, ONC Address: [facility] [place] [address] [phone] When: Unknown Comments:re-start B12 injections monthly- 1st one here, then she will do at homerefill folic acid 1mg dailycbc, cmp, iron studies, b12, folate in 3mofollow- up in 3mo [facility] 06-17-2024 Hospital Discharge instructions Patient Education [...] saline washes). ?Medicines that treat allergies (antihistamines). ?Mwee-uwt-dfdwuox pain relievers. 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 Do not smoke. Avoid being around people [...] provider. Document Revised: 04/15/2022 Document Reviewed: 04/15/2022 [employer] Patient Education 2022 Glycode. 11/09/2023 17:12:28 How to Perform a Sinus [...] be purchased at your local pharmacy, a [employer], or online. How to perform a sinus rinse 1.Wash your hands with soap and water for at least 20 seconds. If soap and water are not available,use hand refining still operator. 2.Wash your device according to the directions [...] provider. Document Revised: 10/28/2021 Document Reviewed: 10/28/2021 [employer] Patient Education 2022 Glycode. 11/09/2023 17:12:26 Upper Respiratory Infection, Adult, Ffci-bg-Jibl Upper Respiratory Infection, Adult An upper respiratory [...] medicines to help relieve symptoms, such as: Rafd-cqf-xsqaopt cold medicines. Medicines to reduce coughing (cough [...] and other clear broths. General instructions Take kten-cwc-szkjhqa and prescription medicines only as told by [...] cannot use soap and water, use hand refining still operator. Avoid touching your mouth, face, eyes, or [...] get better within 7 10 days. Take zwvf-sie-oplezsp and prescription medicines only as told by your doctor. This information is not intended to replace advice given to you by your health care provider. Make sure you discuss any questions you have with your health care provider. Document Revised: 12/11/2021 Document Reviewed: 12/11/2021 [employer] Patient Education 2022 Glycode. 11/09/2023 12:28:26 Cough, Adult Cough, Adult Coughing [...] Follow these instructions at home: Medicines Take zvon-fhu-wwimigx and prescription medicines only as told by [...] of a condition that needs treatment. Take bxnr-bug-wwecqgl and prescription medicines only as told by [...] provider. Document Revised: 05/30/2019 Document Reviewed: 05/30/2019 [employer] Patient Education 2022 Glycode. 11/09/2023 12:28:25 Upper Respiratory Infection, Adult, Pdcr-ik-Vgdu Upper Respiratory Infection, Adult An upper respiratory [...] medicines to help relieve symptoms, such as: Lbws-yyr-zcoqfdx cold medicines. Medicines to reduce coughing (cough [...] and other clear broths. General instructions Take mvtq-xrk-irddngd and prescription medicines only as told by [...] cannot use soap and water, use hand refining still operator. Avoid touching your mouth, face, eyes, or [...] get better within 7 10 days. Take jluh-jie-fpyzmru and prescription medicines only as told by your doctor. This information is not intended to replace advice given to you by your health care provider. Make sure you discuss any questions you have with your health care provider. Document Revised: 12/11/2021 Document Reviewed: 12/11/2021 [employer] Patient Education 2022 Glycode. Follow Up Care 11/09/2023 11:21:28 With:Grace BURGER, Stefania Lowe Address: [address] [place] [address] [place] [phone]- When: only if needed [facility] 05-22-2024 Evaluation + Plan noteExtracted from: Title:chronic pain Author:Rupesh Gandara DO. Date:10/14/23 Patient is presenting with w ith [...] Iron Percent Saturation 08/03/23 * Transferrin 08/03/23 [facility]04-09-2024 Hospital Discharge instructions Patient Education 09/01/2023 16:22:08 Rash, Adult, Squl-gz-Aoea Rash, Adult A rash is a change [...] with your condition: Medicine Take or apply mhia-don-ivxgwvb and prescription medicines only as told by [...] the rash from spreading. Take or apply fvxu-ztf-fhtpiie and prescription medicines only as told by [...] provider. Document Revised: 02/20/2022 Document Reviewed: 02/20/2022 [employer] Patient Education 2022 Glycode. 09/01/2023 16:22:08 Rash, Adult, Ooin-yc-Wpxj Rash, Adult A rash is a change [...] with your condition: Medicine Take or apply ngvc-vps-ixvqajk and prescription medicines only as told by [...] the rash from spreading. Take or apply yrqw-aip-kysjhkt and prescription medicines only as told by [...] provider. Document Revised: 02/20/2022 Document Reviewed: 02/20/2022 [employer] Patient Education 2022 Glycode. 09/01/2023 16:21:55 Dysuria Dysuria Dysuria is pain [...] Follow these instructions at home: Medicines Take pogp-uhx-slrlsdl and prescription medicines only as told by [...] provider. Document Revised: 12/21/2020 Document Reviewed: 12/21/2020 [employer] Patient Education 2022 Glycode. [facility] Care 08-25-2023 Hospital Discharge instructions Patient Education 01/16/2023 11:11:04 Obesity, Adult, Mzwb-lg-Cxxq Obesity, Adult Obesity is having too much [...] food choices, such as grocery stores and [employer]. What are the signs or symptoms? The [...] eat. ?How much exercise you get. Take lgmi-tlr-zrabutx and prescription medicines only as told by [...] provider. Document Revised: 12/17/2021 Document Reviewed: 12/17/2021 [employer] Patient Education 2022 Glycode. Follow Up Care 12/09/2022 15:41:12 With:TOMEKA MITTAL FAAFP, Andreas Arenas, RODRI, PED Address: [address], [place] [address]- When:Within 1 Month(s) [facility] 08-08-2023 Hospital Discharge instructions Patient Education 12/30/2022 17:25:59 Menorrhagia, Abye-ya-Dpqi Menorrhagia Menorrhagia is when your monthly periods [...] Follow these instructions at home: Medicines Take zray-jpb-zdonddn and prescription medicines only as told by [...] keep your pee (urine) pale yellow. Take oncn-zak-pmvgdgp or prescription medicines. Eat foods that are [...] be given medicines or have surgery. Take xkgi-tqs-dddwqmo and prescription medicines only as told by [...] provider. Document Revised: 01/22/2021 Document Reviewed: 01/22/2021 [employer] Patient Education 2022 Glycode. 12/30/2022 17:25:59 Abnormal Uterine Bleeding, Qtpy-mf-Dysu Abnormal Uterine Bleeding Abnormal uterine bleeding means [...] Follow these instructions at home: Medicines Take kojr-jsa-mehbdly and prescription medicines only as told by your doctor. Ask your doctor about: ?Taking medicines such as aspirin and ibuprofen. Do not take these medicines unless your doctor tells you to take them. ?Taking kmex-fws-bzbziot medicines, vitamins, herbs, and supplements. You may be given iron pills. Take them as told by your doctor. Managing constipation If you take iron pills, you may need to take these actions to prevent or treat trouble pooping (constipation): Drink enough fluid to keep your pee (urine) pale yellow. Take hjdr-adb-akkrrcu or prescription medicines. Eat foods that are [...] provider. Document Revised: 09/10/2021 Document Reviewed: 09/10/2021 [employer] Patient Education 2022 Glycode. 12/30/2022 17:25:59 Abdominal Pain, Adult, Udvv-pp-Wiow Abdominal Pain, Adult Many things can cause belly (abdominal) pain. Most times, belly pain is not dangerous. Many cases of belly pain can be watched and treated at home. Sometimes, though, belly pain is serious. Your doctor will try to find the cause of your belly pain. Follow these instructions at home: Medicines Take uaaf-dfu-mrnwrzx and prescription medicines only as told by [...] your belly pain for any changes. Take tssl-hxa-uatsuxa and prescription medicines only as told by [...] provider. Document Revised: 09/19/2019 Document Reviewed: 09/19/2019 [employer] Patient Education 2022 Glycode. Follow Up Care 12/30/2022 13:42:46 With:Dada PERKINS Address: [address] [place] [address]- Business (1) When:01/02/2023 17:12:57 With:Andreas ECKERT Address: [address], [facility] [address]- Business (1) When:Within 3 Day(s) [facility]07-19-2023 Evaluation + Plan noteExtracted from: Title:Clinical [...] 10:20:00 AM Scheduled Provider:Andreas ECKERT DO, FAAFP Location:[facility] Appointment Type: Open Appointment Date:05/04/2023 10:30:00 AM Scheduled Provider:Daja Ho [facility] Type:ONC Office Visit 30 (FT) Future [...] Radiology* NM Myocardial Spect Part 2 12/23/21 [facility]07-18-2023 Hospital Discharge instructions Patient Education 12/09/2022 15:42:51 Palpitations, Dvmi-zo-Wwic Palpitations Palpitations are feelings that your heartbeat [...] quitting, ask your doctor. General instructions Take gxng-ojn-fyageft and prescription medicines only as told by [...] provider. Document Revised: 10/02/2021 Document Reviewed: 10/02/2021 [employer] Patient Education 2022 Glycode. Follow Up Care 12/05/2022 08:44:28 With:TOMEKA MITTAL FAAFP, Andreas Arenas, RODRI, PED Address: [address] [place] [address] [place], [address] [place] [phone]- When:Within 1 Month(s) [facility] 06-22-2023 Evaluation + Plan noteExtracted [...] 08:20:00 AM Scheduled Provider:Andreas ECKERT DO, FAAFP Location:[facility] Appointment Type:FM Open Appointment Date:05/04/2023 10:30:00 AM [...] Radiology* NM Myocardial Spect Part 2 12/23/21 [facility] Hospital Discharge instructions Patient Education 11/04/2022 [...] correctly. Follow these instructions at home: Take pcjo-vut-nynvisl and prescription medicines only as told by [...] provider. Document Revised: 12/18/2021 Document Reviewed: 04/19/2021 [employer] Patient Education 2022 Glycode. Follow Up Care 08/04/2022 13:25:17 With:TOMEKA MITTAL FAAFP, RODRI Cervantes, PED Address: [address] [facility] [place] [address]- When:Within 1 Month(s) [facility] 06-01-2023 Hospital Discharge instructions Follow Up Care 10/23/2022 13:52:10 With:Hussain Varner Address: [facility] [address] [place] [address]- [phone] Fax Business (1) When: Unknown Comments:follow-up as scheduled [facility]05-12-2023 Hospital Discharge instructions Patient Education 10/03/2022 [...] Carrots. Green beans. Tomatoes. Peppers. Onions. Cucumbers. Vega sprouts. Grains Whole grains, such as whole-wheat [...] meet with a certified diabetes care and aboriginal education teacher? Do I need to meet with a dietitian? What number can I call if I have questions? When are the best times to check my blood glucose? Where to find more information: [place] Diabetes Association: diabetes.org Academy of Nutrition and Dietetics: eatright.org National [place] of Diabetes and Digestive and Kidney Diseases: [...] provider. Document Revised: 12/12/2020 Document Reviewed: 12/12/2020 [employer] Patient Education 2022 Glycode. Follow Up Care 08/04/2022 13:24:07 With:TOMEKA MITTAL FAAFP, RODRI Cervantes, PED Address: [place] [address]- When:Within 1 Month(s) [facility] 04-13-2023 Hospital Discharge instructions Patient [...] your health care provider or diet and health and nutrition specialist (dietitian). This may include: ?Eating fewer [...] 06/13/2011 Document Revised: 05/24/2018 Document Reviewed: 05/24/2018 [employer] Patient Education 2020 Glycode. Follow Up Care 08/04/2022 13:22:19 With:TOMEKA MITTAL FAAFP, RODRI Cervantes, PED Address: [address] [place] [address] [place] [address]- When:Within 1 Month(s) [facility] 03-13-2023 Hospital Discharge instructions Patient [...] may recommend working with a diet and health and nutrition specialist (dietitian) tomake a meal plan that [...] support from a mental health counselor. Take kqmq-dsj-qalpeje and prescription medicines only as told by [...] Unsweetened oatmeal. Bulgur. Barley. Quinoa. Brown rice. Ashley or whole- wheat flour tortillas or taco shells. Vegetables Lettuce. Spinach. Peas. Beets. Cauliflower. Cabbage. Broccoli. Carrots. Tomatoes. Squash. Eggplant.Herbs. Peppers. Onions. Cucumbers. Vega sprouts. Fruits Berries. Bananas. Apples. Oranges. Grapes. Papaya. Jose J. Pomegranate. Kiwi. Grapefruit. Cherries. Meats and other protein foods Seafood. Poultry without skin. Lean cuts of pork and beef. Tofu. Eggs. Nuts. Beans. Dairy Low-fat or fat-free dairy products, such as yogurt, cottage cheese, and cheese. Beverages Water. Tea. Coffee. Sugar-free or diet soda. [place] water. Lowfat or no-fat milk. Milk alternatives, such as soy or almond milk. Fats and oils [place] oil. Canola oil. [place] oil. Grapeseed oil. Avocado. Walnuts. Sweets and [...] 09/25/2015 Document Revised: 09/02/2019 Document Reviewed: 07/15/2017 [employer] Patient Education 2020 Glycode. 08/04/2022 13:29:01 Diabetes Mellitus and Nutrition, Adult [...] that you work with a diet and health and nutrition specialist (dietitian) tomake a meal plan that [...] blood glucose? Where to find more information: [place] Diabetes Association: diabetes.org Academy of Nutrition and Dietetics: www.eatright.org National [place] of Diabetes and Digestive and Kidney Diseases (NIH): www.niddk.nih.gov Summary A healthy meal plan will help you control your blood glucose and maintain a healthy lifestyle. Working with a diet and health and nutrition specialist (dietitian) can help you make a [...] 02/05/2006 Document Revised: 04/23/2018 Document Reviewed: 06/15/2017 [employer] Patient Education 2020 Glycode. 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 Do not smoke. Avoid being around people [...] 10/27/2008 Document Revised: 10/11/2018 Document Reviewed: 10/11/2018 [employer] Patient Education 2020 Glycode. Follow Up Care 06/30/2022 08:05:41 With:TOMEKA MITTAL FAAFP, Andreas Arenas, RODRI, PED Address: [place] [address]- When:Within 3 Month(s) [facility] 01-24-2023 Hospital Discharge instructions Patient [...] at home: Medicines Take, use, or apply pzyd-lio-bguhcdw and prescription medicines only as told by [...] and water are not available, use hand refining still operator. Do not smoke. Avoid being around people [...] 05/11/2006 Document Revised: 10/11/2018 Document Reviewed: 10/11/2018 [employer] Patient Education 2020 Glycode. Follow Up Care 06/17/2022 18:56:38 With:Andreas ECKERT Address: [facility] [address] [place] [address] Business (1) When:06/20/2022 20:44:44 [facility]01-24-2023 Evaluation + Plan noteExtracted from: Title:ED Note Author:Luis F Dickens PA-C Conor e:06/17/22 Other specified bacterial ag ents as the cause of diseases classified elsewhere (B96.89: Other specified bacterial agents as the cause of diseases classified elsewhere) Sinusitis, bacterial (J32.9: Chronic sinusitis, unspecified) Orders: amoxicillin-clavulanate, = 1 tab(s), Oral, q12hr, X 5 day(s), # 10 tab(s), Refills(s) 0, Pharmacy: [facility]/pharmacy #[id number], 165, cm, 06/17/22 19:01:00 EST, Height/Length Dosing, 125, kg, 06/17/22 19:01:00 EST, Weight Dosing amoxicillin-clavulanate, 1 tab(s), Tab, Oral, Once, Stop date 06/17/22 20:40:00 EST, STAT, Start date 06/17/22 20:40:00 EST Future Appointments Appointment Date:07/09/2022 03:00:00 PM Scheduled Provider:Andrew Fuller MD Location:FT.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 Try to avoid contact with other people [...] 08/01/2003 Document Revised: 08/30/2019 Document Reviewed: 11/25/2016 [employer] Patient Education 2020 Glycode. 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 Avoid contact with people who have cold [...] 06/18/2005 Document Revised: 03/24/2019 Document Reviewed: 10/29/2016 [employer] Patient Education 2020 Glycode. 05/20/2022 18:38:11 Cellulitis, Adult, Ucfz-ii-Bpsv Cellulitis, Adult Cellulitis is a skin infection. [...] Follow these instructions at home: Medicines Take jlsw-ipg-nynurud and prescription medicines only as told by [...] 10/27/2008 Document Revised: 09/30/2018 Document Reviewed: 09/30/2018 [employer] Patient Education 2020 Glycode. Follow Up Care 05/20/2022 18:01:26 With:Follow-up with your eye doctor Address:Unknown When:05/23/2022 18:30:47 With:Andreas ECKERT Address: [address] [place] [address] [facility] (1) When:Within 3 Day(s) [facility]12-27-2022 Evaluation + Plan noteExtracted from: Title:ED [...] for cold symptoms, 200 mL, Refill(s) 0, [facility]/pharmacy #[id number], 165, cm, 05/20/22 18:06:00 EST, Height/Length Dosing, 124, kg, 05/20/22 18:06:00 EST, Weight Dosing doxycycline, 100 mg = 1 tab(s), Oral, BID, X 7 day(s), # 14 tab(s), Refills(s) 0, Pharmacy: [facility]/pharmacy #[id number], 165, cm, 05/20/22 18:06:00 EST, Height/Length Dosing, 124, kg, 05/20/22 18:06:00 EST, Weight Dosing fluorescein ophthalmic, 1 mg, 1 EA, Test, OPTH, Once, Stop date 05/20/22 18:16:00 EST, STAT, Start date 05/20/22 18:16:00 EST ketotifen ophthalmic, 1 drop(s), Eye-Both, q8hr, 7.5 mL, Refill(s) 0, [facility]/pharmacy #[id number], 165, cm, 05/20/22 18:06:00 EST, Height/Length Dosing, 124, kg, 05/20/22 18:06:00 EST, Weight Dosing mupirocin topical, 1 justine, Topical, TID for 7 day(s), 30 gram, Refill(s) 0, [facility]/pharmacy #[id number], 165, cm, 05/20/22 18:06:00 EST, Height/Length Dosing, 124, kg, 05/20/22 18:06:00 EST, Weight Dosing polymyxin B-trimethoprim ophthalmic, 1 drop(s), OPTH, q3hr for 7 day(s), 10 mL, Refill(s) 0, [facility]/pharmacy #[id number], 165, cm, 05/20/22 18:06:00 EST, Height/Length [...] Radiology* NM Myocardial Spect Part 2 12/23/21 [facility]12-07-2022 Hospital Discharge instructions Follow Up Care 04/30/2022 09:58:20 With:Daja Marion Address: [facility] [address] [place] [address]- [phone] Business (1) When: Unknown Comments:IV Venofer 300mg x 3cbc, cmp, iron studies in 3mofollow-up in 3mo [facility]07-12-2022 Hospital Discharge instructions Patient Education 12/03/2021 12:04:01 Chest Wall Pain, Dsxf-sd-Iugb Chest Wall Pain Chest wall pain is [...] are safe for you. General instructions Take awkd-aqr-gfcdgdb and prescription medicines only as told by [...] 10/27/2008 Document Revised: 11/11/2018 Document Reviewed: 11/11/2018 [employer] Patient Education 2020 [employer]. Follow Up Care 11/29/2021 15:15:07 With:TOMEKA MITTAL FAAFP, Andreas Arenas, RODRI, PED Address: [place] [address]- When:Within 3 Month(s) [facility] 07-11-2022 Hospital Discharge instructions Patient [...] balance is fine. 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 Take fvkr-bqi-rrtbjjj and prescription medicines only as told by [...] 11/04/2001 Document Revised: 05/14/2018 Document Reviewed: 06/13/2017 [employer] Patient Education 2020 [employer]. 12/02/2021 12:41:20 Nonspecific Chest Pain, Adult Nonspecific [...] Follow these instructions at home: Medicines Take olpv-wwi-dwsyoqa and prescription medicines only as told by [...] 02/18/2006 Document Revised: 11/11/2018 Document Reviewed: 11/11/2018 [employer] Patient Education 2020 [employer]. Follow Up Care 12/02/2021 08:48:14 With:Andreas ECKERT Address: [facility] [address], [facility] [address] [facility] (1) When:12/03/2021 12:33:54 Comments:Return to the emergency room if your chest pain recurs, dizziness recurs or any new symptoms [facility]07-11-2022 Evaluation + Plan noteExtracted from: Title:ED Note Author:Deepti Gee M.D. H Da te:12/02/21 1. Chest pain (R07.9: Chest pain, [...] 10:20:00 AM Scheduled Provider:Andreas ECKERT DO, FAAFP Location:[facility] Appointment Type: ER/Hospital Follow Up Appointment Date:12/12/2021 01:00:00 PM Scheduled Provider:Andrew Fuller MD Location:[facility] Appointment Type:Pain Management - Follow Up (FT) Appointment Date:04/30/2022 09:00:00 AM Scheduled Provider:Hussain Varner DO [facility] Type:ONC Office Visit 15 (FT) Future [...] Saturation 04/30/22 * Iron Percent Saturation 05/03/21 [facility]07-08-2022 Hospital Discharge instructions Patient Education 11/28/2021 [...] develop this condition: Playing sports that include jqcp-wy-xnbb contact with others. Having a skin condition [...] Follow these instructions at home: Medicines Take rjnv-avm-maetaca and prescription medicines only as told by [...] 06/01/2015 Document Revised: 06/21/2019 Document Reviewed: 06/02/2017 [employer] Patient Education 2020 Glycode. 11/28/2021 22:07:29 Shingles, Grae-mw-Eckw Shingles Shingles is an infection. 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 Follow Up Care 11/28/2021 18:25:06 With:Andreas ECKERT Address: [facility] [place], [facility] [place] [address] Business (1) When:12/01/2021 21:40:[address]08-2022 Hospital Discharge instructions Patient Education 08/29/2021 22:37:40 [...] told by your health care provider. Take vezo-mbi-pnflohm and prescription medicines only as told by [...] 07/02/2006 Document Revised: 04/23/2018 Document Reviewed: 07/24/2017 Elsevier Patient Education 2020 Elsevier Inc. Follow Up Care 08/29/2021 19:02:33 With:Andreas ECKERT Address: [address], [place] [address] [facility] (1) When:09/01/2021 Comments:Return to the emergency room if your pain gets worse, abdominal pain, fever, vomiting, bowel or bladder incontinence, numbness/tingling in the saddle/groin area or any new symptoms. [facility]04-07-2022 Evaluation + Plan noteExtracted from: Title:ED Note Author:Gerard Kaur, Deepti Baltazar te:08/29/21 1. Right flank pain (R10.9: Unspecified abdominal pain) Ordered: acetaminophen-hydrocodone, 1 tab(s), Oral, q6hr as needed for pain, 7 tab(s), Refill(s) 0, [facility]/pharmacy #[id number], 165, cm, 08/29/21 19:07:00 EDT, Height/Length [...] Date:11/21/2021 08:00:00 AM Scheduled Provider:Andrew Fuller MD Location[facility] [place] Appointment Type:Pain Management - Follow Up (FT) [...] Saturation 04/30/22 * Iron Percent Saturation 05/03/21 [facility]12-07-2021 Hospital Discharge instructions Follow Up Care 04/30/2021 09:48:12 With:Hussain Varner Address: [facility] [address] [place] [address] [place] [phone] Fax Business (1) When: Unknown With:Hussain Varner Address: [facility] [address] [place] [address]- [phone] Fax Business (1) When: Unknown Comments:stay off of b12, every 4 months check cbc, cmp, b12, folate, iron studies. f/u with me or ghazal 1 year. [facility] Future Appointments Appointment Date:12/12/2021 01:00:00 PM Scheduled Provider:Andrew Fuller MD Location:[facility] Appointment Type:Pain Management - Follow Up (FT) Appointment Date:04/30/2022 09:00:00 AM Scheduled Provider:Hussain Varner DO [facility] Type:ONC Office Visit 15 (FT) Future [...] Saturation 04/30/22 * Iron Percent Saturation 05/03/21 [facility] Future Appointments Appointment Date:12/12/2021 01:00:00 PM Scheduled Provider:Andrew Fuller MD Location:[facility] Appointment Type:Pain Management - Follow Up (FT) Appointment Date:12/17/2021 02:00:00 PM Scheduled Provider:Alyssa GA CNP [facility] Type:Cardiology ED Follow Up (FT) Appointment Date:04/03/2022 08:00:00 AM Scheduled Provider:Andreas ECKERT DO, FAAFP Location:[facility] [place] [facility] Appointment Type: Open Appointment Date:04/30/2022 09:00:00 AM Scheduled Provider:Hussain Varner DO [facility] Type:ONC Office Visit 15 (FT) Future [...] Saturation 04/30/22 * Iron Percent Saturation 05/03/21 [facility] Evaluation + Plan note Future Appointments Appointment Date:04/03/2022 08:00:00 AM Scheduled Provider:Andreas ECKERT DO, FAAFP Location:[facility] Appointment Type: Open Appointment Date:04/30/2022 09:00:00 AM Scheduled Provider:Hussain Varner DO [facility] Type:ONC Office Visit 15 (FT) Future [...] Radiology* NM Myocardial Spect Part 2 12/23/21 [facility] Future Appointments Appointment [...] Radiology* NM Myocardial Spect Part 2 12/23/21 [facility] Future Appointments Appointment Date:05/04/2023 10:30:00 AM Scheduled Provider:Daja Ho [facility] Type:ONC Office Visit 30 (FT) Future [...] Radiology* NM Myocardial Spect Part 2 12/23/21 [facility] Future Appointments Appointment Date:05/13/2022 02:30:00 PM Scheduled Provider: [facility] App[facility] Type:ONC Injectafer (FT) Appointment Date:05/04/2023 10:30:00 AM Scheduled Provider:Daja Ho [facility] Type:ONC Office Visit 30 (FT) Future [...] Radiology* NM Myocardial Spect Part 2 12/23/21 [facility] Future Appointments Appointment Date:07/09/2022 03:00:00 PM Scheduled Provider:Andrew Fuller MD Location:[facility] Appointment Type:Pain Management - Follow Up (FT) Appointment Date:08/04/2022 12:40:00 PM Scheduled Provider:Andreas ECKERT DO, FAAFP Location:[facility] Appointment Type:FM Open Appointment Date:05/04/2023 10:30:00 AM Scheduled Provider:Daja Ho [facility] Type:ONC Office Visit 30 (FT) Future [...] Radiology* NM Myocardial Spect Part 2 12/23/21 [facility] Evaluation + Plan note Future Appointments Appointment Date:08/04/2022 12:40:00 PM Scheduled Provider:Andreas ECKERT DO, FAAFP Location:[facility] Appointment Type: Open Appointment Date:05/04/2023 10:30:00 AM Scheduled Provider:Daja Ho [facility] Type:ONC Office Visit 30 (FT) Future [...] Radiology* NM Myocardial Spect Part 2 12/23/21 [facility] Future Appointments Appointment Date:08/14/2022 09:00:00 AM Scheduled Provider:[facility] - Office Injection (FT) Appointment Date:09/04/2022 08:20:00 AM Scheduled Provider:Andreas ECKERT DO, FAAFP Location:[facility] Appointment Type:FM Open Appointment Date:10/03/2022 08:20:00 AM Scheduled Provider:Andreas ECKERT DO, FAAFP Location:[facility] Appointment Type:FM Open Appointment Date:11/04/2022 08:20:00 AM Scheduled Provider:Andreas ECKERT DO, FAAFP Location:[facility] Appointment Type:FM Open Appointment Date:05/04/2023 10:30:00 AM Scheduled Provider:Daja Ho [facility] Type:ONC Office Visit 30 (FT) Future [...] Radiology* NM Myocardial Spect Part 2 12/23/21 [facility] Evaluation + Plan note Future Appointments Appointment Date:09/04/2022 08:20:00 AM Scheduled Provider:Andreas ECKERT DO, FAAFP Location:[facility] Appointment Type:FM Open Appointment Date:10/03/2022 08:20:00 AM Scheduled Provider:Andreas ECKERT DO, FAAFP Location:[facility] Appointment Type:FM Open Appointment Date:11/04/2022 08:20:00 AM Scheduled Provider:Andreas ECKERT DO, FAAFP Location:[facility] Appointment Type:FM Open Appointment Date:11/13/2022 08:45:00 AM Scheduled Provider:Andrew Fuller MD Location:[facility] Appointment Type:Pain Management - Follow Up (FT) Appointment Date:05/04/2023 10:30:00 AM Scheduled Provider:Daja Ho [facility] Type:ONC Office Visit 30 (FT) Future [...] Radiology* NM Myocardial Spect Part 2 12/23/21 [facility] Future Appointments Appointment Date:10/03/2022 08:20:00 AM Scheduled Provider:Andreas ECKERT DO, FAAFP Location:[facility] Appointment Type:FM Open Appointment Date:11/04/2022 08:20:00 AM Scheduled Provider:Andreas EKCERT DO, FAAFP Location:[facility] Appointment Type:FM Open Appointment Date:11/13/2022 08:45:00 AM Scheduled Provider:Andrew Fuller MD Location:[facility] Appointment Type:Pain Management - Follow Up (FT) Appointment Date:05/04/2023 10:30:00 AM Scheduled Provider:Daja Ho [facility] Type:ONC Office Visit 30 (FT) Future [...] Radiology* NM Myocardial Spect Part 2 12/23/21 [facility] Evaluation + Plan note Future Appointments Appointment Date:11/04/2022 08:20:00 AM Scheduled Provider:Andreas ECKERT DO, FAAFP Location:[facility] Appointment Type:FM Open Appointment Date:11/13/2022 08:45:00 AM Scheduled Provider:Andrew Fuller MD Location:[facility] Appointment Type:Pain Management - Follow Up (FT) Appointment Date:05/04/2023 10:30:00 AM Scheduled Provider:Daja Ho [facility] Type:ONC Office Visit 30 (FT) Future [...] Radiology* NM Myocardial Spect Part 2 12/23/21 [facility] Evaluation + Plan note Future Appointments Appointment Date:11/04/2022 08:20:00 AM Scheduled Provider:Andreas ECKERT DO, FAAFP Location:[facility] Appointment Type:FM Open Appointment Date:11/13/2022 08:45:00 AM Scheduled Provider:Andrew Fuller MD Location:[facility] Appointment Type:Pain Management - Follow Up (FT) Appointment Date:05/04/2023 10:30:00 AM Scheduled Provider:Daja Ho [facility] Type:ONC Office Visit 30 (FT) Future [...] Radiology* NM Myocardial Spect Part 2 12/23/21 [facility] Future Appointments Appointment Date:11/04/2022 08:20:00 AM Scheduled Provider:Andreas ECKERT DO, FAAFP Location:[facility] Appointment Type:FM Open Appointment Date:11/07/2022 08:30:00 AM Scheduled Provider: Location:.ONCOLOGY Appointment Type:ONC Injectafer (FT) Appointment Date:11/13/2022 08:45:00 AM Scheduled Provider:Andrew Fuller MD [facility] Appointment Type:Pain Management - Follow Up (FT) Appointment Date:11/13/2022 09:30:00 AM Scheduled Provider:Daja Ho [facility] Type:ONC Office Visit 15 (FT) Appointment Date:05/04/2023 10:30:00 AM Scheduled Provider:Daja Ho Location:.ONCOLOGY Appointment Type:ONC Office Visit 30 (FT) Diagnostic [...] Radiology* NM Myocardial Spect Part 2 12/23/21 [facility] Future Appointments Appointment Date:11/04/2022 08:20:00 AM Scheduled Provider:Andreas ECKERT DO, FAAFP Location:[facility] Appointment Type:FM Open Appointment Date:11/07/2022 08:30:00 AM Scheduled Provider: Location:.ONCOLOGY Appointment Type:ONC Injectafer (FT) Appointment Date:11/13/2022 08:45:00 AM Scheduled Provider:Andrew Fuller MD Location:FT.[facility] Appointment Type:Pain Management - Follow Up (FT) Appointment Date:11/13/2022 09:30:00 AM Scheduled Provider:Daja Ho Location:.ONCOLOGY Appointment Type:ONC Office Visit 15 (FT) Appointment Date:05/04/2023 10:30:00 AM Scheduled Provider:Daja Ho Location:.ONCOLOGY Appointment Type:ONC Office Visit 30 (FT) Diagnostic [...] Radiology* NM Myocardial Spect Part 2 12/23/21 [facility] Future Appointments Appointment Date:11/07/2022 08:30:00 AM Scheduled Provider: [facility] Type:ONC Injectafer (FT) Appointment Date:11/13/2022 08:45:00 AM Scheduled Provider:Andrew Fuller MD [facility] Appointment Type:Pain Management - Follow Up (FT) Appointment Date:11/13/2022 09:30:00 AM Scheduled Provider:Daja Ho [facility] Type:ONC Office Visit 15 (FT) Appointment Date:12/05/2022 08:20:00 AM Scheduled Provider:Andreas ECKERT DO, FAAFP Location:[facility] Appointment Type:FM Open Appointment Date:05/04/2023 10:30:00 AM [...] Radiology* NM Myocardial Spect Part 2 12/23/21 [facility] Evaluation + Plan note Future Appointments Appointment Date:12/05/2022 08:20:00 AM Scheduled Provider:Andreas ECKERT DO, FAAFP Location:[facility] Appointment Type: Open Appointment Date:05/04/2023 10:30:00 AM [...] Radiology* NM Myocardial Spect Part 2 12/23/21 [facility] Future Appointments Appointment Date:12/05/2022 08:20:00 AM Scheduled Provider:Andreas ECKERT DO, FAAFP Location:[facility] Appointment Type: Open Appointment Date:05/04/2023 10:30:00 AM Scheduled Provider:Daja Ho Location:[facility] Appointment Type:ONC Office Visit 30 (FT) Diagnostic [...] Radiology* NM Myocardial Spect Part 2 12/23/21 [facility] Future Appointments Appointment Date:12/10/2022 03:00:00 PM Scheduled Provider: Location:[facility] Appointment Type:Surgery FT Appointment Date:01/16/2023 10:20:00 AM Scheduled Provider:Andreas ECKERT DO, FAAFP Location:[facility] Appointment Type:FM Open Appointment Date:05/04/2023 10:30:00 AM [...] Radiology* NM Myocardial Spect Part 2 12/23/21 [facility] Evaluation + Plan note Future Appointments Appointment Date:01/02/2023 08:40:00 AM Scheduled Provider:Andreas ECKERT DO, FAAFP Location:[facility] Appointment Type:FM Open Appointment Date:01/16/2023 10:20:00 AM Scheduled Provider:Andreas ECKERT DO, FAAFP Location:[facility] Appointment Type:FM Open Appointment Date:05/04/2023 10:30:00 AM Scheduled Provider:Daja Ho [facility] Type:ONC Office Visit 30 (FT) Future [...] Level 12/29/22 * Vitamin B12 Level 04/30/23 [facility] Future Appointments Appointment Date:02/20/2023 11:20:00 AM Scheduled Provider:Andreas ECKERT DO, FAAFP Location:[facility] Appointment Type: Open Appointment Date:05/04/2023 10:30:00 AM Scheduled Provider:Daja Ho [facility] Type:ONC Office Visit 30 (FT) Future [...] Level 12/29/22 * Vitamin B12 Level 04/30/23 [facility] Evaluation + Plan note Future Appointments Appointment Date:02/20/2023 11:20:00 AM Scheduled Provider:Andreas ECKERT DO, FAAFP Location:[facility] Appointment Type:FM Open Appointment Date:05/04/2023 10:30:00 AM Scheduled Provider:Daja Ho Location:.ONCOLOGY Appointment Type:ONC Office Visit 30 (FT) Future Scheduled Tests Laboratory* CBC w/ Auto Diff 04/30/23 * Comprehensive Metabolic Panel 04/30/23 * Ferritin 04/30/23 * Folate Level 04/30/23 * Iron Level 04/30/23 * Iron Percent Saturation 04/30/23 * Vitamin B12 Level 04/30/23 [facility] Future Appointments Appointment Date:05/04/2023 10:30:00 AM Scheduled Provider:Daja Ho Location:.ONCOLOGY Appointment Type:ONC Office Visit 30 (FT) [facility] Future Appointments Appointment Date:08/06/2023 10:30:00 AM Scheduled Provider:Daja Ho [facility] Type:ONC Office Visit 30 (FT) Future Scheduled Tests Laboratory* CBC w/ Auto Diff 08/03/23 * Comprehensive Metabolic Panel 08/03/23 * Ferritin 08/03/23 * Iron Level 08/03/23 * Iron Percent Saturation 08/03/23 * Transferrin 08/03/23 [facility] Future Appointments Appointment Date:06/05/2023 09:00:00 AM Scheduled Provider: [facility] Type:ONC Venofer (FT) Appointment Date:08/06/2023 10:30:00 AM Scheduled Provider:Daja Ho Location:.ONCOLOGY Appointment Type:ONC Office Visit 30 (FT) Future Scheduled Tests Laboratory* CBC w/ Auto Diff 08/03/23 * Comprehensive Metabolic Panel 08/03/23 * Ferritin 08/03/23 * Iron Level 08/03/23 * Iron Percent Saturation 08/03/23 * Transferrin 08/03/23 [facility] Future Appointments Appointment Date:09/10/2023 11:00:00 AM Scheduled Provider:Daja Ho Location:.ONCOLOGY Appointment Type:ONC Office Visit 30 (FT) Appointment Date:10/14/2023 11:15:00 AM Scheduled Provider:Rupesh Gandara DO [facility] [place] Appointment Type:Pain Management - Follow Up (FT) Future Scheduled Tests Laboratory* CBC w/ Auto Diff 08/03/23 * Comprehensive Metabolic Panel 08/03/23 * Ferritin 08/03/23 * Iron Level 08/03/23 * Iron Percent Saturation 08/03/23 * Transferrin 08/03/23 [facility] Evaluation + Plan note Future Appointments Appointment Date:09/10/2023 11:00:00 AM Scheduled Provider:Daja Ho [facility] Type:ONC Office Visit 30 (FT) Appointment Date:10/14/2023 11:15:00 AM Scheduled Provider:Rupesh Gandara DO Location:[facility] Appointment Type:Pain Management - Follow Up (FT) Diagnostic Tests Pending * Urine Culture 09/01/23 Future Scheduled Tests Laboratory* CBC w/ Auto Diff 08/03/23 * Comprehensive Metabolic Panel 08/03/23 * Ferritin 08/03/23 * Iron Level 08/03/23 * Iron Percent Saturation 08/03/23 * Transferrin 08/03/23 [facility] Future Appointments Appointment Date:10/14/2023 11:15:00 AM Scheduled Provider:Rupesh Gandara DO Location:[facility] Appointment Type:Pain Management - Follow Up (FT) Future Scheduled Tests Laboratory* CBC w/ Auto Diff 08/03/23 * Comprehensive Metabolic Panel 08/03/23 * Ferritin 08/03/23 * Iron Level 08/03/23 * Iron Percent Saturation 08/03/23 * Transferrin 08/03/23 [facility] Future Appointments Appointment Date:02/10/2024 09:40:00 AM Scheduled Provider:Serafin Roberson DO Location:[facility] Appointment Type: New Patient - Adult Future Scheduled Tests Laboratory* CBC w/ Auto Diff 08/03/23 * Comprehensive Metabolic Panel 08/03/23 * Ferritin 08/03/23 * Iron Level 08/03/23 * Iron Percent Saturation 08/03/23 * Transferrin 08/03/23 [facility] Evaluation + Plan note Future Appointments Appointment Date:04/04/2024 09:40:00 AM Scheduled Provider:Daja Ho [facility] Type:ONC Office Visit 20 (FT) Appointment Date:05/27/2024 08:40:00 AM Scheduled Provider:Serafin Roberson DO Location:[facility] Appointment Type: Open [facility] Evaluation + Plan note Future Appointments Appointment Date:05/27/2024 08:40:00 AM Scheduled Provider:Serafin Roberson DO Location:[facility] Appointment Type: Open Appointment Date:07/04/2024 09:40:00 AM Scheduled Provider:Daja Ho [facility] Type:ONC Office Visit 20 (FT) Future Scheduled Tests Laboratory* CBC w/ Auto Diff 07/05/24 * Comprehensive Metabolic Panel 07/05/24 * Ferritin 07/05/24 * Folate Level 07/05/24 * Iron Level 07/05/24 * Iron Percent Saturation 07/05/24 * Transferrin 07/05/24 * Vitamin B12 Level 07/05/24 [facility] Evaluation + Plan note Future Appointments Appointment Date:05/27/2024 08:40:00 AM Scheduled Provider:Serafin Roberson DO Location:[facility] Appointment Type: Open Future Scheduled Tests Laboratory* CBC w/ Auto Diff 08/03/23 * Comprehensive Metabolic Panel 08/03/23 * Ferritin 08/03/23 * Iron Level 08/03/23 * Iron Percent Saturation 08/03/23 * Transferrin 08/03/23 [facility] [place] Evaluation + Plan note Future Appointments Appointment Date:06/06/2024 08:30:00 AM Scheduled Provider:Rupesh Gandara DO [facility] Appoint[facility] Type:Pain Management - Follow Up (FT) Appointment Date:07/04/2024 09:40:00 AM Scheduled Provider:Daja Ho [facility] Type:ONC Office Visit 20 (FT) Appointment Date:07/08/2024 09:20:00 AM Scheduled Provider:Serafin Roberson DO Location:[facility] Appointment Type: Open Future Scheduled Tests Laboratory* CBC w/ Auto Diff 07/05/24 * Comprehensive Metabolic Panel 07/05/24 * Ferritin 07/05/24 * Folate Level 07/05/24 * Iron Level 07/05/24 * Iron Percent Saturation 07/05/24 * Transferrin 07/05/24 * Vitamin B12 Level 07/05/24 [facility] Evaluation + Plan note Future Appointments Appointment Date:08/08/2024 08:30:00 AM Scheduled Provider:Alyssa Young PA-C Location:FT.[facility] Appointment Type:Pain Management - Follow Up (FT) [...] w/CAD if perf and 3D Pablo 07/08/24 [facility] Evaluation + Plan note Future Appointments Appointment Date:08/29/2024 10:20:00 AM Scheduled Provider:Jeffy Coffman MD Location:.ONCOLOGY Appointment Type:ONC Office Visit 20 (FT) Appointment Date:08/30/2024 09:15:00 AM Scheduled Provider:Alyssa Young PA-C Location:FT.[facility] Appointment Type:Pain Management - Follow Up (FT) Appointment Date:11/17/2024 03:20:00 PM Scheduled Provider:Serafin Roberson DO Location:[facility] Appointment Type: Open Future Scheduled Tests Radiology* MA Mamm Screen w/CAD if perf and 3D Pabol 07/08/24 [facility] evaluation + Plan note Future Appointments Appointment Date:08/30/2024 09:15:00 AM Scheduled Provider:Alyssa Young PA-C Location:.[facility] [place] Appointment Type:Pain Management - Follow Up (FT) [...] w/CAD if perf and 3D Pablo 07/08/24 [facility] Evaluation + Plan note Future Appointments [...] w/CAD if perf and 3D Pablo 07/08/24 [facility] [place] Evaluation note* Diagnosis Dysmenorrhea Pain in female genitalia on intercourse Dyspareunia documented in this encounter [facility] noteNo assessment information availableUniversity [facility] Work Phone: Evaluation note* Diagnosis Pre-op examination Menorrhagia with regular cycle Abnormal uterine bleeding Unspecified disorder of menstruation and other abnormal bleeding from female genital tract Pelvic pain in female Unspecified symptom associated with female genital organs documented in this encounter [facility] Narrative No data available for this section [facility] No data available for this section [facility] No data available for this section [facility] HospitalReason for referral (narrative) Referred by: Andreas ECKERT DO, FAAFP [facility] Primary Care Summary Purpose Family History No [...] Found No data available for this section Advance Directives No Advanced Directives Records FoundNo [...] section and content) DATE CREATED AUTHOR 04/17/2018 [facility] DATE CREATED AUTHOR AUTHOR'S ORGANIZ ATION 03/16/2021 [facility] DATE CREATED AUTHOR AUTHOR'S ORGANIZ ATION 04/02/2024 [facility] DATE CREATED AUTHOR AUTHOR'S ORGANIZ ATION 06/03/2024 [facility] DATE CREATED AUTHOR AUTHOR'S ORGANIZ ATION 08/29/2024 [facility] DATE CREATED AUTHOR AUTHOR'S ORGANIZ ATION 09/09/2024 [facility] DATE CREATED AUTHOR AUTHOR'S ORGANIZ ATION 09/29/2024 [facility] EPIC DATE CREATED AUTHOR AUTHOR'S ORGANIZ ATION 09/30/2024 [facility] DATE CREATED AUTHOR AUTHOR'S ORGANIZ ATION 10/05/2024 [facility] Care Team (unrecognized sect ion and content) Personnel Name: Serafin Roberson DO Address: [address] [place] [id number] Black 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 Specialty Start Date End Date nAdreas Eckert MD [address] [place] [address] PCP - General Family Medicine 01/29/23 [employer] 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 Specialty Start Date End Date Andreas Eckert MD [address] [place] [address] PCP - General Family Medicine 01/29/23 Team Status: Inactive Member Role Status Dates Dada Perkins DO Attending Provider Active Start : September 26, 2024 End: September 26, 2024 Black 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 Specialty Start Date End Date Andreas Eckert MD [address] [place] [address] PCP - General Family Medicine 01/29/23 Black 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 Specialty Start Date End Date Andreas Eckert MD [address] [place] [address] PCP - General Family Medicine 01/29/23 Reason [...] BE BASED ON THE PRIMARY CLINICAL RECORDS. [employer] [facility]. provides no warranty or guarantee of the accuracy or completeness of information in this document.
[2024-10-21 06:19] LABS: Basophils Percent Auto 0.6 % (0.2-2.0); Eosinophils Absolute Auto 0.2 10^3/uL (0.0-0.7); Eosinophils Percent Auto 2.6 % (0.9-7.0); Hematocrit 39.8 % (36.0-48.0); Immature Granulocytes Abs Auto 0.02 10^3/uL (0.00-0.03); Immature Granulocytes Pct Auto 0.3 % (0.0-0.5); Lymphocytes Percent Auto 29.5 % (20.5-60.0); Mean Corpuscular HGB Conc 32.7 g/dL (29.9-35.2); Mean Corpuscular Hemoglobin 28.9 pg (26.7-34.0); Mean Corpuscular Volume 88.4 fL (81.0-99.0); Mean Platelet Volume 11.2 fL (9.5-13.5); Monocytes Absolute Auto 0.5 10^3/uL (0.3-0.8); Monocytes Percent Auto 6.8 % (1.7-12.0); Neutrophils Percent Auto 60.2 % (43.0-75.0); Platelet Count 270 10^3/uL (150-450); Red Cell Distribution Width 14.6 % (11.0-15.0); White Blood Count 6.7 10^3/uL (4.0-11.0)
[2024-10-21 06:20] VITALS: BP 124/80; PULSE 67; TEMP 36.4; O2SAT 98; BMI 42.5
[2024-10-21 06:46] LABS: HCG Quantitative <1 mIU/mL
[2024-10-21] MEDS: LACTATED RINGER'S SOLUTION 1,000 ML 50 ML IV (07:00)
[2024-10-21 08:01] LABS: Glucometer 123 mg/dL (74-106)
--- NOTE | 2024-10-21 08:06 | PM.ONB ---
Brief Operative Note Date of procedure: 10/21/24 Pre-op diagnosis general: menorrhagia Post-op diagnosis: same as pre-op Procedure: NAME OF PROCEDURE: [ ] Elizabeth endometrial ablation with hysteroscopy. PROCEDURE: The patient was taken back to the OR where she was prepped and draped in the normal sterile fashion after being placed in the dorsal lithotomy position, after being placed under general anesthesia without difficulty.? A weighted speculum was placed into the vagina. The anterior lip was grasped with a single tooth tenaculum. The patient was then sounded to approximated 8cm. The patient?s cervix was gently dilated using hegardilators. The hysteroscope was passed through the cervix into the uterus where both ostia were seen. No gross evidence of polyps, fibroids or malignancy. The cervical length was noted to be 4 cm. The total cavity length is 4cm.? The Elizabeth ablation apparatus was set to approximately 4cm in length. This was placed through the cervix and into the uterus. After the seal was tested, at that time the total ablation of 120 seconds was performed with the Elizabeth withoutdifficulty. All instruments were removed from the vagina. Excellent hemostasis noted.? Sponge and lap count correct times 2.? Patient taken to recovery in stable condition. Anesthesia: MAC Surgeon: Dada Perkins Estimated blood loss (mL): 5 Pathology: none sent Condition: stable Disposition: PACU Urinary Catheter Management Urinary Catheter Management Straight: Cath placed during this visit: no
[2024-10-21 08:11] VITALS: BP 110/75; PULSE 68; TEMP 36.6; O2SAT 96
[2024-10-21 08:26] VITALS: BP 128/83; PULSE 56; O2SAT 99
[2024-10-21 08:41] VITALS: BP 136/79; PULSE 68; O2SAT 100
[2024-10-21 08:56] VITALS: BP 115/75; PULSE 68; O2SAT 96
[2024-10-21 09:11] VITALS: BP 113/72; PULSE 61; O2SAT 99
== END 2024-10-21 09:18 | disposition home or self-care (01) ==
PROVIDERS: PCP Family Medicine Adult Medicine; Visit Provider Obstetrics & Gynecology
PROC: (CPT 952; principal; 2024-10-21 07:30)
DX: N92.0 Excessive and frequent menstruation with regular cycle (principal); N93.9 Abnormal uterine and vaginal bleeding, unspecified; R10.2 Pelvic and perineal pain; E66.01 Morbid (severe) obesity due to excess calories; Z68.41 Body mass index [BMI] 40.0-44.9, adult; Z87.891 Personal history of nicotine dependence; E78.5 Hyperlipidemia, unspecified; I10 Essential (primary) hypertension; K21.9 Gastro-esophageal reflux disease without esophagitis; E11.9 Type 2 diabetes mellitus without complications; Z79.84 Long term (current) use of oral hypoglycemic drugs; Z86.16 Personal history of COVID-19
CPT/HCPCS: 58563; 36415; 82948; 84702; 85025; J1885; J2250; J2405; J2704; J3010